=== PATIENT | female | born 1955 | race Caucasian/White ===

== ENCOUNTER → 2017-09-29 | Outpatient (CLI) | payer BC ==
--- NOTE | 2017-09-29 15:21 | CT ---
EXAMINATION TYPE: CT abdomen wo con DATE OF EXAM: 09/29/2017 HISTORY: Adrenal nodule, abnormal cta chest. CT DLP: 421.50 mGycm. Automated Exposure Control for Dose Reduction was Utilized. TECHNIQUE: CT scan of the abdomen is performed with oral but without IV contrast. COMPARISON: CTA chest September 04, 2016. FINDINGS: Within the limitations of a non-contrast study, the following observations are made. LUNG BASES: No significant abnormality is appreciated. LIVER/GB: Gallbladder is not visualized and presumed surgically absent though cholecystectomy clips a re not clearly seen, findings noted unchanged from prior. PANCREAS: There is some mild generalized fat replaced atrophy of pancreas. SPLEEN: No significant abnormality is seen. ADRENALS: Slight nodular thickening to left adrenal gland favoring benign hyperplasia is stable measu ring 1.0 cm. KIDNEYS: There is 1.8 cm rounded low dense lesion mid to lower pole level left kidney felt to reflect simple cyst, Hounsfield units measure 12-13. BOWEL: Oral contrast reaches level of distal ileum making evaluation of distal bowel suboptimal. Ther e is no suspicious small or large bowel dilatation. Normal-appearing appendix is seen inferiorly from cecum. Mild wall thickening in right colon is present. A colitis cannot be entirely excluded in appr opriate clinical setting. Cortical correlation advised. Finding most likely is product of poor disten tion. LYMPH NODES: No greater than 1cm abdominal lymph nodes are appreciated. OSSEOUS STRUCTURES: No significant abnormality is seen. OTHER: No significant additional abnormality is seen. IMPRESSION: Stable 1.0 cm left adrenal prominence favor benign hyperplasia.
== END | disposition home or self-care (01) ==
LOC: RADCTMAIN 14:08
PROVIDERS: ATTEND Family Medicine
DX: E27.9 Disorder of adrenal gland, unspecified (principal)
CPT/HCPCS: 74150

== ENCOUNTER 2017-11-27 12:41 | Emergency (ER) | payer BC ==
[2017-11-27 13:14] VITALS: BP 112/71; PULSE 73; RESP 18; TEMP 97.1
--- NOTE | 2017-11-27 13:26 | ED ---
General Adult HPI - General Chief complaint: Extremity Injury, Lower Stated complaint: Fall-Knee Pain Time Seen by Provider: 11/27/17 12:59 Source: patient, RN notes reviewed Mode of arrival: ambulatory Limitations: no limitations - History of Present Illness Initial comments: 62-year-old female presents to the emergency department with a chief complaint of right knee injury. Patient tripped and fell last Tuesday. She states she fell right onto the knee. She states she still has some pain and some walking to the right knee so she thought that she should be seen. There is no head injury is able to ambulate. She states that she is not currently having any other symptoms of this. Patient was concerned due to the new discomfort so she thought that she should be evaluated.Patient denies any recent fever, chills, shortness of breath, chest pain, back pain, abdominal pain, nausea vomiting, numbness or tingling, dysuria or hematuria, constipation or diarrhea, headaches or visual changes, or any other current symptoms. - Related Data Home Medications Medication Instructions Recorded Confirmed Melatonin 3 mg PO HS PRN 07/23/15 09/05/16 Insulin Aspart [NovoLOG] See Protocol SQ CONTINUOUS 08/18/15 09/05/16 Aspirin [Adult Low Dose Aspirin EC] 324 mg PO DAILY 10/23/15 09/05/16 Metoprolol Tartrate 25 mg PO BID 08/07/16 09/05/16 Cetirizine HCl [Zyrtec] 10 mg PO DAILY 09/04/16 09/05/16 Levothyroxine Sodium [Synthroid] 88 mcg PO DAILY 09/04/16 09/05/16 Propylene Glycol/Peg 400/Pf 1 drop BOTH EYES QID PRN 09/05/16 09/05/16 [Systane 0.3-0.4% Eye Drops] Allergies Allergy/AdvReac Type Severity Reaction Status Date / Time Penicillins Allergy Unknown Verified 11/27/17 13:46 Review of Systems ROS Statement: Those systems with pertinent positive or pertinent negative responses have been documented in the HPI. ROS Other: All systems not noted in ROS Statement are negative. Past Medical History Past Medical History: Atrial Fibrillation, Diabetes Mellitus, GERD/Reflux, Sleep Apnea/CPAP/BIPAP, Thyroid Disorder Additional Past Medical History / Comment(s): no cpap used, arthritis, thyroid nodule, Karis disease History of Any Multi-Drug Resistant Organisms: None Reported Past Surgical History: Bariatric Surgery, Cholecystectomy, Tonsillectomy Additional Past Surgical History / Comment(s): right ovary removed, Past Anesthesia/Blood Transfusion Reactions: No Reported Reaction, Family History of Problems w/ Anesthesia Additional Past Anesthesia/Blood Transfusion Reaction / Comment(s): DIFFICULTY WITH INTUBATION-NEEDS SMALL TUBE. Needs to use a child's one. mother has diff coming out Past Psychological History: No Psychological Hx Reported Smoking Status: Never smoker Past Alcohol Use History: None Reported Past Drug Use History: None Reported - Past Family History Mother Family Medical History: No Reported History Father Family Medical History: Myocardial Infarction ([place]) General Exam - General Exam Comments Initial Comments: General: The patient is awake and alert, in no distress, and does not appear acutely ill. Neck: The neck is supple, there is no tenderness. Cardiovascular: There is a regular rate and rhythm. No murmur, rub or gallop is appreciated. Respiratory: Lungs are clear to auscultation, respirations are non-labored, breath sounds are equal. No wheezes, stridor, rales, or rhonchi. Musculoskeletal: Sensation intact with 2+ pulses throughout the right lower extremity. Fund motion of right ankle right knee and right hip. Patient is appear to have some bruising to the anterior right knee. No deformity. Minimal swelling. Neurological: CN II-XII intact, There are no obvious motor or sensory deficits. Coordination appears grossly intact. Speech is normal. Skin: Skin is warm and dry and no rashes or lesions are noted. Psychiatric: Normal mood and affect. Limitations: no limitations Course Vital Signs 11/27/17 13:06 Temperature 97.1 F L Pulse Rate 73 Respiratory 18 Rate Blood Pressure 112/71 O2 Sat by Pulse 97 Oximetry Medical Decision Making - Medical Decision Making 62-year-old female presents for right knee pain after a fall. At this time and imaging has been reviewed and is negative. This time we discussed ice elevate we discussed follow-up with orthopedic we discussed return parameters all questions. Patient stated that she understood and she is given this plan. All questions have been answered. She will be discharged. - Radiology Data Radiology results: report reviewed, image reviewed Disposition Clinical Impression: Contusion of right knee, Fall, Right knee sprain Disposition: HOME SELF-CARE Condition: Stable Instructions: Knee Pain (ED) Additional Instructions: Please use medication as discussed. Please follow up with family doctor if symptoms have not improved over the next two days. Please return to the emergency room if your symptoms increase or worsen or for any other concerns. Referrals: Farida Rosenbaum DO [Primary Care Provider] - 1-2 days Hiro Rivera MD [STAFF PHYSICIAN] - 1-2 days Time of Disposition: 13:48
--- NOTE | 2017-11-27 13:33 | XR ---
EXAMINATION TYPE: XR knee 4V RT , 4 VIEWS DATE OF EXAM ORDERED: 11/27/2017 HISTORY: Pain following trauma. COMPARISON: None. FINDINGS: No fracture, dislocation or joint effusion is seen. IMPRESSION: NO ACUTE OSSEOUS LESION.
== END 2017-11-27 13:56 | disposition home or self-care (01) ==
LOC: EC 12:41
DX: S83.91XA Sprain of unspecified site of right knee, initial encounter (principal); E11.9 Type 2 diabetes mellitus without complications; E07.9 Disorder of thyroid, unspecified; M19.90 Unspecified osteoarthritis, unspecified site; Z88.0 Allergy status to penicillin; Z79.4 Long term (current) use of insulin; Z79.82 Long term (current) use of aspirin; Z79.899 Other long term (current) drug therapy; W01.0XXA Fall on same level from slipping, tripping and stumbling without subsequent striking against object, initial encounter
CPT/HCPCS: 99283

== ENCOUNTER 2018-09-09 21:20 | Emergency (ER) | payer BC ==
--- NOTE | 2018-09-09 21:33 | ED ---
Neuro HPI - General Stated Complaint: Poss CVA Time Seen by Provider: 09/09/18 21:22 - History of Present Illness Is the patient presenting with stroke symptoms?: Yes Last Known Well Date: 09/09/18 Last Known Well Time: 19:00 Onset/Timin -: hour(s) Initial Comments: Madison is a 63-year-old female with a history listed below who presents to the emergency department today for evaluation of leg weakness and speech difficulty. Patient reports she was in her usual state of health throughout the day today. She reports around 7:30 PM she noticed her leg was feeling a lot. She was trying to move it because she felt like it was cramping. This persisted for over an hour so she called 911 for transport to the hospital. Upon arrival of EMS they noted the patient was having some confusion, had weakness in her right leg and difficulty with speech. Patient was having difficulty naming items and had been difficulty with word finding. Some mild slurring of her speech and some weakness of the right lower extremity. In addition the patient had some confusion. When asked her name she provided her maiden name, she was confused as to her date of . Patient's daughter at bedside states that she was not home with the patient however her sister was. She reports that her mother been in her usual state of health. She does note that recently her mother's sugars have been difficult to control over the past 2 days, this is due to a pump failure and her insulin pump. She reports that yesterday morning her mother woke up with a blood sugar of nearly 500 which is very atypical for her. Placed her insulin pump in a new location in her abdomen and has had better control over the past 24 hours though EMS did report her blood glucose was 300 at their arrival. - Related Data Home Medications: Home Medications Medication Instructions Recorded Confirmed Insulin Aspart [NovoLOG] See Protocol SQ CONTINUOUS 08/18/15 11/27/17 Aspirin [Adult Low Dose Aspirin EC] 81 mg PO HS 10/23/15 11/27/17 Metoprolol Tartrate 25 mg PO BID 08/07/16 11/27/17 Cetirizine HCl [Zyrtec] 10 mg PO DAILY 09/04/16 11/27/17 Levothyroxine Sodium [Synthroid] 75 mcg PO DAILY 11/27/17 11/27/17 Allergies/Adverse Reactions: Allergies Allergy/AdvReac Type Severity Reaction Status Date / Time Penicillins Allergy Unknown Verified 09/09/18 21:29 Review of Systems ROS Statement: Those systems with pertinent positive or pertinent negative responses have been documented in the HPI. ROS Other: All systems not noted in ROS Statement are negative. General Exam - General Exam Comments Initial Comments: Physical Exam GENERAL: Patient is well-developed and well-nourished. Patient is nontoxic and well- hydrated and is in mild distress. HENT: Normocephalic, Atraumatic. EYES: PERRL, EOMI PULMONARY: Unlabored respirations. No audible rales rhonchi or wheezing was noted. CARDIOVASCULAR: There is a regular rate and rhythm without any murmurs gallops or rubs. ABDOMEN: Soft and nontender with normal bowel sounds. Insulin pump in place in LLQ - removed SKIN: Skin is clear with no lesions or rashes and otherwise unremarkable. : Deferred NEUROLOGIC: Patient is alert and oriented x2. Moving all extremities spontaneously Weakness of RLE Word finding difficulty, dysphagia MUSCULOSKELETAL: Normal extremities full passive range of motion. No lower extremity swelling or edema. No calf tenderness. PSYCHIATRIC: Normal psychiatric evaluation. Limitations: no limitations Stroke MDM - Lab Data Result diagrams: 09/09/18 21:20 09/09/18 21:20 Lab Results 09/09/18 09/09/18 09/09/18 Range/Units 21:20 21:20 21:20 WBC (3.8-10.6) k/uL RBC (3.80-5.40) m/uL Hgb (11.4-16.0) gm/dL Hct (34.0-46.0) % MCV (80.0-100.0) fL MCH (25.0-35.0) pg MCHC (31.0-37.0) g/dL RDW (11.5-15.5) % Plt Count (150-450) k/uL Neutrophils % % Lymphocytes % % Monocytes % % Eosinophils % % Basophils % % Neutrophils # (1.3-7.7) k/uL Lymphocytes # (1.0-4.8) k/uL Monocytes # (0-1.0) k/uL Eosinophils # (0-0.7) k/uL Basophils # (0-0.2) k/uL PT 10.4 (9.0-12.0) sec INR 1.1 (<1.2) APTT 21.0 L (22.0-30.0) sec Sodium 141 (137-145) mmol/L Potassium 4.3 (3.5-5.1) mmol/L Chloride 107 (98-107) mmol/L Carbon Dioxide 24 (22-30) mmol/L Anion Gap 10 mmol/L BUN 32 H (7-17) mg/dL Creatinine 0.99 (0.52-1.04) mg/dL Est GFR (CKD-EPI)AfAm 69 (>60 ml/min/1.73 sqM) Est GFR (CKD-EPI)NonAf 60 (>60 ml/min/1.73 sqM) Glucose 159 H (74-99) mg/dL POC Glucose (mg/dL) (75-99) mg/dL POC Glu Climatology Teacher ID Calcium 9.6 (8.4-10.2) mg/dL Total Bilirubin 0.3 (0.2-1.3) mg/dL AST 28 (14-36) U/L ALT 26 (9-52) U/L Alkaline Phosphatase 29 L (38-126) U/L Total Creatine Kinase 94 (30-135) U/L CK-MB (CK-2) 0.6 (0.0-2.4) ng/mL CK-MB (CK-2) Rel Index 0.6 Troponin I <0.012 (0.000-0.034) ng/mL Total Protein 7.8 (6.3-8.2) g/dL Albumin 4.3 (3.5-5.0) g/dL 09/09/18 09/09/18 Range/Units 21:20 21:24 WBC 4.9 (3.8-10.6) k/uL RBC 4.27 (3.80-5.40) m/uL Hgb 12.8 (11.4-16.0) gm/dL Hct 38.6 (34.0-46.0) % MCV 90.4 (80.0-100.0) fL MCH 29.9 (25.0-35.0) pg MCHC 33.1 (31.0-37.0) g/dL RDW 12.6 (11.5-15.5) % Plt Count 266 (150-450) k/uL Neutrophils % 61 % Lymphocytes % 29 % Monocytes % 6 % Eosinophils % 2 % Basophils % 0 % Neutrophils # 3.0 (1.3-7.7) k/uL Lymphocytes # 1.4 (1.0-4.8) k/uL Monocytes # 0.3 (0-1.0) k/uL Eosinophils # 0.1 (0-0.7) k/uL Basophils # 0.0 (0-0.2) k/uL PT (9.0-12.0) sec INR (<1.2) APTT (22.0-30.0) sec Sodium (137-145) mmol/L Potassium (3.5-5.1) mmol/L Chloride (98-107) mmol/L Carbon Dioxide (22-30) mmol/L Anion Gap mmol/L BUN (7-17) mg/dL Creatinine (0.52-1.04) mg/dL Est GFR (CKD-EPI)AfAm (>60 ml/min/1.73 sqM) Est GFR (CKD-EPI)NonAf (>60 ml/min/1.73 sqM) Glucose (74-99) mg/dL POC Glucose (mg/dL) 150 H (75-99) mg/dL POC Glu Climatology Teacher ID Batool [place]custer Calcium (8.4-10.2) mg/dL Total Bilirubin (0.2-1.3) mg/dL AST (14-36) U/L ALT (9-52) U/L Alkaline Phosphatase (38-126) U/L Total Creatine Kinase (30-135) U/L CK-MB (CK-2) (0.0-2.4) ng/mL CK-MB (CK-2) Rel Index Troponin I (0.000-0.034) ng/mL Total Protein (6.3-8.2) g/dL Albumin (3.5-5.0) g/dL - NIH Stroke Scale 1a. Level of Consciousness: (0) alert 1b. LOC Questions: (1) answers 1 question correctly 1c. LOC Commands: (0) performs tasks correctly 2. Best Gaze: (0) normal 3. Visual: (0) no visual loss 4. Facial Palsy: (0) normal symmetrical movement 5a. Motor Arm Left: (0) no drift 5b. Motor Arm Right: (0) no drift 6a. Motor Leg Left: (0) no drift 6b. Motor Leg Right: (1) drift 7. Limb Ataxia: (0) absent 8. Sensory: (0) normal 9. Best Language: (1) mild/moderate aphasia 10. Dysarthria: (1) mild/moderate dysarthria 11. Extinction/Inattention: (0) no abnormality - Thrombolytic Inclusion/Exclusion Thrombolytic Inclusion Criteria: Ischemic Stroke Onset< 3h, NIH Stroke Scale Deficit, Negative CT Scan for ICH, Age 18 or Older, Glucose of 50-400mg/dl - Core Measures Door to Thrombolytics, if given: 54 - Medical Decision Making Code stroke activated from the field for strokelike symptoms 2-1/2 hour onset The patient is awake, alert, oriented to person but somewhat confused, she is protecting her airway and able to cooperate with exam Patient taken from EMS today to CT for immediate computed tomography scan Initial NIH of 4 EKG sinus rhythm, no evidence of arrhythmia, ischemia or infarction. Patient was evaluated by the neurologist Dr Correia, neurology recommends TPA Dr Correia discussed risks/benefits of TPA, patient consents TPA ordered, Pharmacy notified and brought appropriate weight based medication to ER Patient care was discussed with Dr. Gonzalez at [facility] who accepts the transfer I again discussed risks/benefits of TPA with the patient who consented TPA bolus given 22:15 EMS arrived at 2227 No change in the patient's condition prior to transfer - EKG Data -: EKG Interpreted by Me EKG shows normal: sinus rhythm Rate: normal Past Medical History Past Medical History: Atrial Fibrillation, Diabetes Mellitus, GERD/Reflux, Sleep Apnea/CPAP/BIPAP, Thyroid Disorder Additional Past Medical History / Comment(s): no cpap used, arthritis, thyroid nodule, Karis disease History of Any Multi-Drug Resistant Organisms: None Reported Past Surgical History: Bariatric Surgery, Cholecystectomy, Tonsillectomy Additional Past Surgical History / Comment(s): right ovary removed, Past Anesthesia/Blood Transfusion Reactions: No Reported Reaction, Family History of Problems w/ Anesthesia Additional Past Anesthesia/Blood Transfusion Reaction / Comment(s): DIFFICULTY WITH INTUBATION-NEEDS SMALL TUBE. Needs to use a child's one. mother has diff coming out Past Psychological History: No Psychological Hx Reported Smoking Status: Never smoker Past Alcohol Use History: None Reported Past Drug Use History: None Reported - Past Family History Mother Family Medical History: No Reported History Father Family Medical History: Myocardial Infarction ([place]) Course Vital Signs 09/09/18 09/09/18 09/09/18 21:29 21:45 22:00 Temperature 98.8 F 97.8 F 97.6 F Pulse Rate 53 L 92 93 Pulse Rate [ Program Management Professional ] Respiratory 20 19 15 Rate Blood Pressure 140/98 141/98 140/91 Blood Pressure [Left Arm] O2 Sat by Pulse 100 98 98 Oximetry 09/09/18 09/09/18 09/09/18 22:15 22:30 22:34 Temperature 97.9 F 97.6 F 97.9 F Pulse Rate 90 96 Pulse Rate [ 93 Program Management Professional ] Respiratory 16 17 16 Rate Blood Pressure 135/92 133/116 Blood Pressure 137/89 [Left Arm] O2 Sat by Pulse 99 99 99 Oximetry 09/09/18 22:35 Temperature 97.8 F Pulse Rate Pulse Rate [ 98 Program Management Professional ] Respiratory 18 Rate Blood Pressure Blood Pressure 142/88 [Left Arm] O2 Sat by Pulse 98 Oximetry Critical Care Time Critical Care Time: Yes Total Critical Care Time: 30 Critical Care Time: Critical Care Critical care time was exclusive of separately billable procedures and treating other patients and teaching time. Critical care was necessary to treat or prevent imminent or life-threatening deterioration. Critical care was time spent personally by me on the following activities: development of treatment plan with patient or surrogate, discussions with consultants, discussions with primary provider, evaluation of patient's response to treatment, examination of patient, obtaining history from patient or surrogate, ordering and performing treatments and interventions, ordering and review of laboratory studies, ordering and review of radiographic studies, pulse oximetry, re-evaluation of patient's condition and review of old charts. Disposition Clinical Impression: Difficulty with speech, Nihss score 4, Right leg weakness, CVA (cerebral vascular accident), Received intravenous tissue plasminogen activator (t-PA) in emergency department Disposition: OTHER INSTITUTION NOT DEFINED Condition: Serious Referrals: None,Stated [Primary Care Provider] - 1-2 days - Out of Hospital Transfer - Req. Specs Out of Hospital Transfer - Requested Specifics: Other Emergency Center ( [facility]
--- NOTE | 2018-09-09 21:34 | CT ---
EXAMINATION TYPE: CT brain wo con for TPA DATE OF EXAM: 09/09/2018 COMPARISON: None HISTORY: 63 year-old female code stroke, weakness, Neuro deficits. TECHNIQUE: Examination was done in axial plane without intravenous contrast. Coronal and sagittal r econstructions performed. CT DLP: 901.7 mGycm Automated exposure control for dose reduction was used. FINDINGS: There is no evidence of acute intracranial hemorrhage, acute ischemic changes, mass, mass-effect, or extra-axial fluid collection. There is no effacement of cerebral sulci or basal subarachnoid cister ns. There is no hydrocephalus. There is no midline shift. [place]-white matter distinction is preserv ed. Very minimal patchy periventricular hypodensities suggest recent burden of chronic small vessel ische kyle disease. Trace mucosal thickening anterior ethmoid air cells. Mastoid air cells well pneumatized. Orbits and g lobes are intact. Previous cataract surgery on the left. IMPRESSION: No acute intracranial abnormality seen. If symptoms persist, follow-up CT or MRI.
[2018-09-09 21:41] LABS: Glucose,Whole Blood 150 mg/dL (75-99)
[2018-09-09 21:58] LABS: Basophils % (A) 0 %; Eosinophils # (A) 0.1 k/uL (0-0.7); Eosinophils % (A) 2 %; HCT 38.6 % (34.0-46.0); HGB 12.8 gm/dL (11.4-16.0); Lymphocytes # (A) 1.4 k/uL (1.0-4.8); Lymphocytes % (A) 29 %; MCH 29.9 pg (25.0-35.0); MCHC 33.1 g/dL (31.0-37.0); MCV 90.4 fL (80.0-100.0); Mean Platelet Volume 6.7; Monocytes # (A) 0.3 k/uL (0-1.0); Monocytes % (A) 6 %; Neutrophils % (A) 61 %; Platelet Count 266 k/uL (150-450); RBC 4.27 m/uL (3.80-5.40); RDW 12.6 % (11.5-15.5); WBC 4.9 k/uL (3.8-10.6)
[2018-09-09] MEDS ORDERED: tPA (Alteplase) PER PHARMACY 1 EACH MISC MISCELLANE PRN (22:00)
[2018-09-09] MEDS ORDERED: ALTEPLASE BOLUS 7 MG in EMPTY SYRINGE 1 SYR IV STA (22:04)
[2018-09-09 22:05] LABS: Albumin 4.3 g/dL (3.5-5.0); Calcium 9.6 mg/dL (8.4-10.2); Creatine Kinase 94 U/L (30-135); Potassium 4.3 mmol/L (3.5-5.1); Total Bilirubin 0.3 mg/dL (0.2-1.3); Total Protein 7.8 g/dL (6.3-8.2)
[2018-09-09] MEDS ORDERED: ALTEPLASE IV STA (22:06)
[2018-09-09 22:15] LABS: INR 1.1 (<1.2); Prothrombin Time 10.4 sec (9.0-12.0)
[2018-09-09 22:16] LABS: Creatine Kinase MB 0.6 ng/mL (0.0-2.4); Troponin I <0.012 ng/mL (0.000-0.034)
[2018-09-09 23:08] VITALS: BP 142/88; PULSE 98; RESP 18; TEMP 97.8
[2018-09-11 13:08] LABS: Hemoglobin A1C 8.9 % (4.0-6.0)
== END 2018-09-09 22:34 | disposition other institution (70) ==
LOC: EC 21:20
DX: I63.9 Cerebral infarction, unspecified (principal); R29.704 NIHSS score 4; I48.91 Unspecified atrial fibrillation; E11.9 Type 2 diabetes mellitus without complications; G47.30 Sleep apnea, unspecified; Z79.82 Long term (current) use of aspirin; Z79.4 Long term (current) use of insulin; Z79.899 Other long term (current) drug therapy; Z88.0 Allergy status to penicillin
CPT/HCPCS: 36415; 93005; 80053; 82550; 82553; 84484; 85025; 85610; 85730; 83036; 70450; 99291; 37195; J2997

== ENCOUNTER 2018-09-22 11:54 | Inpatient (IN) | payer BC, MEDICARE ==
[2018-09-22] MEDS ORDERED: SODIUM CHLORIDE 0.9% 1,000 ML IV STA ×2 (11:58)
--- NOTE | 2018-09-22 12:04 | ED ---
Altered Mental Status HPI - General Stated Complaint: Hyperglycemia Time Seen by Provider: 09/22/18 11:54 Source: patient, EMS, RN notes reviewed Mode of arrival: EMS - History of Present Illness Initial Comments: This is a 63-year-old female history of CVA history of diabetes who is insulin pump who was brought in by EMS for evaluation of confusion and weakness sleeping a lot. Apparently her palms not been functioning over last at least day or so she's had these other symptoms going on for 3-4 days getting progressively worse. He comes oral intake. Per paramedics the blood sugar was 563 upon evaluation. She was given about 400 mL of IV fluid and route to. No reports of trauma no reports of fevers chills nausea vomiting or other symptoms. MD Complaint: altered mental status, confusion, weakness, other - Related Data Home Medications Medication Instructions Recorded Confirmed Insulin Aspart [NovoLOG] See Protocol SQ CONTINUOUS 08/18/15 09/22/18 Metoprolol Tartrate 25 mg PO BID 08/07/16 09/22/18 Levothyroxine Sodium [Synthroid] 75 mcg PO DAILY 11/27/17 09/22/18 Atorvastatin [Lipitor] 40 mg PO HS 09/22/18 09/22/18 Clopidogrel [Plavix] 75 mg PO DAILY 09/22/18 09/22/18 Allergies Allergy/AdvReac Type Severity Reaction Status Date / Time Penicillins Allergy Unknown Verified 09/22/18 14:00 Review of Systems ROS Statement: Those systems with pertinent positive or pertinent negative responses have been documented in the HPI. ROS Other: All systems not noted in ROS Statement are negative. Past Medical History Past Medical History: Atrial Fibrillation, Diabetes Mellitus, GERD/Reflux, Sleep Apnea/CPAP/BIPAP, Thyroid Disorder Additional Past Medical History / Comment(s): no cpap used, arthritis, thyroid nodule, Karis disease History of Any Multi-Drug Resistant Organisms: None Reported Past Surgical History: Bariatric Surgery, Cholecystectomy, Tonsillectomy Additional Past Surgical History / Comment(s): right ovary removed, Past Anesthesia/Blood Transfusion Reactions: No Reported Reaction, Family History of Problems w/ Anesthesia Additional Past Anesthesia/Blood Transfusion Reaction / Comment(s): DIFFICULTY WITH INTUBATION-NEEDS SMALL TUBE. Needs to use a child's one. mother has diff coming out Past Psychological History: No Psychological Hx Reported Smoking Status: Never smoker Past Alcohol Use History: None Reported Past Drug Use History: None Reported - Past Family History Mother Family Medical History: No Reported History Father Family Medical History: Myocardial Infarction ([place]) General Exam - General Exam Comments Initial Comments: This is a well-developed well-nourished awake alert but lethargic female General appearance: alert, in no apparent distress Head exam: Present: atraumatic, normocephalic, normal inspection Eye exam: Present: normal appearance, PERRL, EOMI. Absent: scleral icterus, conjunctival injection, periorbital swelling ENT exam: Present: mucous membranes dry Neck exam: Present: normal inspection. Absent: tenderness, meningismus, lymphadenopathy Respiratory exam: Present: normal lung sounds bilaterally. Absent: respiratory distress, wheezes, rales, rhonchi, stridor Cardiovascular Exam: Present: regular rate, normal rhythm, normal heart sounds. Absent: systolic murmur, diastolic murmur, rubs, gallop, clicks GI/Abdominal exam: Present: soft, normal bowel sounds. Absent: distended, tenderness, guarding, rebound, rigid Extremities exam: Present: normal inspection, full ROM, normal capillary refill. Absent: tenderness, pedal edema, joint swelling, calf tenderness Back exam: Present: normal inspection Neurological exam: Present: alert, altered, CN II-XII intact, other (Does demonstrate confusion) Psychiatric exam: Present: normal affect, normal mood Skin exam: Present: warm, dry, intact, normal color. Absent: rash Course Vital Signs 09/22/18 11:59 Temperature 97.4 F L Pulse Rate 112 H Respiratory 20 Rate Blood Pressure 120/74 O2 Sat by Pulse 100 Oximetry - Reevaluation(s) Reevaluation #1: 09/22/18 16:27 I did reevaluate the patient she'll occasion discuss findings the patient and her daughter. The patient will be admitted for inpatient treatment. Reevaluation #2: 09/22/18 16:28 did come the emergency department see the patient. Reevaluation #3: 09/22/18 16:28 I did discuss case with Dr. Ferrari patient will be admitted to intensive care unit. Reevaluation #4: 09/22/18 16:34 The lactic acidosis is likely secondary to dehydration not an infectious process Medical Decision Making - Medical Decision Making I did discuss the case with the above physicians. Patient is getting some mild improvement after IV hydration. She does demonstrate evidence of DKA and hyperosmolar pathology. Patient will be admitted intensive care unit for treatment. - Lab Data Result diagrams: 09/22/18 12:22 09/22/18 12:22 Lab Results 09/22/18 09/22/18 09/22/18 Range/Units 12:19 12:22 12:22 WBC 15.3 H (3.8-10.6) k/uL RBC 4.46 (3.80-5.40) m/uL Hgb 13.1 (11.4-16.0) gm/dL Hct 44.8 (34.0-46.0) % MCV 100.4 H D (80.0-100.0) fL MCH 29.3 (25.0-35.0) pg MCHC 29.2 L (31.0-37.0) g/dL RDW 12.4 (11.5-15.5) % Plt Count 349 (150-450) k/uL Neutrophils % 88 % Lymphocytes % 5 % Monocytes % 6 % Eosinophils % 0 % Basophils % 0 % Neutrophils # 13.5 H (1.3-7.7) k/uL Lymphocytes # 0.8 L (1.0-4.8) k/uL Monocytes # 0.9 (0-1.0) k/uL Eosinophils # 0.1 (0-0.7) k/uL Basophils # 0.0 (0-0.2) k/uL Hypochromasia Marked PT (9.0-12.0) sec INR (<1.2) APTT (22.0-30.0) sec Sodium (137-145) mmol/L Potassium (3.5-5.1) mmol/L Chloride (98-107) mmol/L Carbon Dioxide (22-30) mmol/L Anion Gap mmol/L BUN (7-17) mg/dL Creatinine (0.52-1.04) mg/dL Est GFR (CKD-EPI)AfAm (>60 ml/min/1.73 sqM) Est GFR (CKD-EPI)NonAf (>60 ml/min/1.73 sqM) Glucose (74-99) mg/dL POC Glucose (mg/dL) >600 H (75-99) mg/dL POC Glu Fabrication Welder ID [place], February Osmolality (280-301) mosm/kg Lactic Ac Sepsis Rflx Plasma Lactic Acid Apolinar (0.7-2.0) mmol/L Calcium (8.4-10.2) mg/dL Magnesium (1.6-2.3) mg/dL Total Bilirubin (0.2-1.3) mg/dL AST (14-36) U/L ALT (9-52) U/L Alkaline Phosphatase (38-126) U/L Total Creatine Kinase 34 (30-135) U/L CK-MB (CK-2) 0.8 (0.0-2.4) ng/mL CK-MB (CK-2) Rel Index 2.4 Troponin I <0.012 (0.000-0.034) ng/mL Total Protein (6.3-8.2) g/dL Albumin (3.5-5.0) g/dL TSH (0.465-4.680) mIU/L Acetone, Qual (Negative) 09/22/18 09/22/18 09/22/18 Range/Units 12:22 12:22 12:22 WBC (3.8-10.6) k/uL RBC (3.80-5.40) m/uL Hgb (11.4-16.0) gm/dL Hct (34.0-46.0) % MCV (80.0-100.0) fL MCH (25.0-35.0) pg MCHC (31.0-37.0) g/dL RDW (11.5-15.5) % Plt Count (150-450) k/uL Neutrophils % % Lymphocytes % % Monocytes % % Eosinophils % % Basophils % % Neutrophils # (1.3-7.7) k/uL Lymphocytes # (1.0-4.8) k/uL Monocytes # (0-1.0) k/uL Eosinophils # (0-0.7) k/uL Basophils # (0-0.2) k/uL Hypochromasia PT 10.3 (9.0-12.0) sec INR 1.1 (<1.2) APTT 22.4 (22.0-30.0) sec Sodium 136 L (137-145) mmol/L Potassium 6.7 H* (3.5-5.1) mmol/L Chloride 97 L (98-107) mmol/L Carbon Dioxide <5 L* (22-30) mmol/L Anion Gap mmol/L BUN 34 H (7-17) mg/dL Creatinine 1.94 H (0.52-1.04) mg/dL Est GFR (CKD-EPI)AfAm 31 (>60 ml/min/1.73 sqM) Est GFR (CKD-EPI)NonAf 27 (>60 ml/min/1.73 sqM) Glucose 813 H* (74-99) mg/dL POC Glucose (mg/dL) (75-99) mg/dL POC Glu Fabrication Welder ID Osmolality (280-301) mosm/kg Lactic Ac Sepsis Rflx Plasma Lactic Acid Apolinar 6.8 H* (0.7-2.0) mmol/L Calcium 10.0 (8.4-10.2) mg/dL Magnesium 2.3 (1.6-2.3) mg/dL Total Bilirubin 0.5 (0.2-1.3) mg/dL AST 22 (14-36) U/L ALT 22 (9-52) U/L Alkaline Phosphatase 46 (38-126) U/L Total Creatine Kinase (30-135) U/L CK-MB (CK-2) (0.0-2.4) ng/mL CK-MB (CK-2) Rel Index Troponin I (0.000-0.034) ng/mL Total Protein 8.0 (6.3-8.2) g/dL Albumin 4.8 (3.5-5.0) g/dL TSH (0.465-4.680) mIU/L Acetone, Qual Positive (Negative) 09/22/18 09/22/18 09/22/18 Range/Units 12:22 13:05 14:18 WBC (3.8-10.6) k/uL RBC (3.80-5.40) m/uL Hgb (11.4-16.0) gm/dL Hct (34.0-46.0) % MCV (80.0-100.0) fL MCH (25.0-35.0) pg MCHC (31.0-37.0) g/dL RDW (11.5-15.5) % Plt Count (150-450) k/uL Neutrophils % % Lymphocytes % % Monocytes % % Eosinophils % % Basophils % % Neutrophils # (1.3-7.7) k/uL Lymphocytes # (1.0-4.8) k/uL Monocytes # (0-1.0) k/uL Eosinophils # (0-0.7) k/uL Basophils # (0-0.2) k/uL Hypochromasia PT (9.0-12.0) sec INR (<1.2) APTT (22.0-30.0) sec Sodium (137-145) mmol/L Potassium (3.5-5.1) mmol/L Chloride (98-107) mmol/L Carbon Dioxide (22-30) mmol/L Anion Gap mmol/L BUN (7-17) mg/dL Creatinine (0.52-1.04) mg/dL Est GFR (CKD-EPI)AfAm (>60 ml/min/1.73 sqM) Est GFR (CKD-EPI)NonAf (>60 ml/min/1.73 sqM) Glucose (74-99) mg/dL POC Glucose (mg/dL) >600 H (75-99) mg/dL POC Glu Fabrication Welder ID February Osmolality 347 H* (280-301) mosm/kg Lactic Ac Sepsis Rflx Y Plasma Lactic Acid Apolinar (0.7-2.0) mmol/L Calcium (8.4-10.2) mg/dL Magnesium (1.6-2.3) mg/dL Total Bilirubin (0.2-1.3) mg/dL AST (14-36) U/L ALT (9-52) U/L Alkaline Phosphatase (38-126) U/L Total Creatine Kinase (30-135) U/L CK-MB (CK-2) (0.0-2.4) ng/mL CK-MB (CK-2) Rel Index Troponin I (0.000-0.034) ng/mL Total Protein (6.3-8.2) g/dL Albumin (3.5-5.0) g/dL TSH (0.465-4.680) mIU/L Acetone, Qual (Negative) 09/22/18 09/22/18 09/22/18 Range/Units 14:36 15:25 16:28 WBC (3.8-10.6) k/uL RBC (3.80-5.40) m/uL Hgb (11.4-16.0) gm/dL Hct (34.0-46.0) % MCV (80.0-100.0) fL MCH (25.0-35.0) pg MCHC (31.0-37.0) g/dL RDW (11.5-15.5) % Plt Count (150-450) k/uL Neutrophils % % Lymphocytes % % Monocytes % % Eosinophils % % Basophils % % Neutrophils # (1.3-7.7) k/uL Lymphocytes # (1.0-4.8) k/uL Monocytes # (0-1.0) k/uL Eosinophils # (0-0.7) k/uL Basophils # (0-0.2) k/uL Hypochromasia PT (9.0-12.0) sec INR (<1.2) APTT (22.0-30.0) sec Sodium (137-145) mmol/L Potassium (3.5-5.1) mmol/L Chloride (98-107) mmol/L Carbon Dioxide (22-30) mmol/L Anion Gap mmol/L BUN (7-17) mg/dL Creatinine (0.52-1.04) mg/dL Est GFR (CKD-EPI)AfAm (>60 ml/min/1.73 sqM) Est GFR (CKD-EPI)NonAf (>60 ml/min/1.73 sqM) Glucose (74-99) mg/dL POC Glucose (mg/dL) >600 H 533 H (75-99) mg/dL POC Glu Fabrication Welder ID Sylvain AnthonyGinger Baugh Osmolality (280-301) mosm/kg Lactic Ac Sepsis Rflx Plasma Lactic Acid Apolinar (0.7-2.0) mmol/L Calcium (8.4-10.2) mg/dL Magnesium (1.6-2.3) mg/dL Total Bilirubin (0.2-1.3) mg/dL AST (14-36) U/L ALT (9-52) U/L Alkaline Phosphatase (38-126) U/L Total Creatine Kinase (30-135) U/L CK-MB (CK-2) (0.0-2.4) ng/mL CK-MB (CK-2) Rel Index Troponin I (0.000-0.034) ng/mL Total Protein (6.3-8.2) g/dL Albumin (3.5-5.0) g/dL TSH 1.010 (0.465-4.680) mIU/L Acetone, Qual (Negative) - EKG Data -: EKG Interpreted by Me EKG shows normal: sinus rhythm (Sinus tachycardia rate of 113 LA interval 164 QRS 88 QT since QTC 346/474) - Radiology Data Radiology results: report reviewed (I did review the imaging and report the CT shows evidence of acute versus subacute stroke patient did have one 2 weeks ago. ), image reviewed Critical Care Time Critical Care Time: Yes Critical Care Time: 47 minutes of critical care time which includes monitoring EMS run and discussed with paramedics history physical labs x-rays multiple re-evaluations patient response to therapy discuss with the patient's family discussed with the admitting physicians and wall and floor tiler admission orders and documentation of the above Disposition Clinical Impression: Diabetic ketoacidosis, Hyperosmolarity due to secondary diabetes mellitus, Dehydration, History of CVA (cerebrovascular accident) Disposition: ADMITTED IP TO THIS [facility] Condition: Serious Referrals: Farida Rosenbaum DO [Primary Care Provider] - 1-2 days
[2018-09-22 12:22] LABS: Glucose,Whole Blood >600 mg/dL (75-99)
[2018-09-22] MEDS ORDERED: INSULIN REGULAR 100 UNIT/ML VIAL IV ONE (12:42)
[2018-09-22] MEDS ORDERED: INSULIN REGULAR 100 UNIT in SODIUM CHLORIDE 0.9% 100 ML IV ONE (12:43)
[2018-09-22 13:00] LABS: Basophils % (A) 0 %; Eosinophils # (A) 0.1 k/uL (0-0.7); Eosinophils % (A) 0 %; HCT 44.8 % (34.0-46.0); HGB 13.1 gm/dL (11.4-16.0); Hypochromasia Marked; INR 1.1 (<1.2); Lymphocytes # (A) 0.8 k/uL (1.0-4.8); Lymphocytes % (A) 5 %; MCH 29.3 pg (25.0-35.0); MCHC 29.2 g/dL (31.0-37.0); Mean Platelet Volume 7.5; Monocytes # (A) 0.9 k/uL (0-1.0); Monocytes % (A) 6 %; Neutrophils # (A) 13.5 k/uL (1.3-7.7); Neutrophils % (A) 88 %; Partial Thromboplastin Time 22.4 sec (22.0-30.0); Platelet Count 349 k/uL (150-450); Prothrombin Time 10.3 sec (9.0-12.0); RBC 4.46 m/uL (3.80-5.40); RDW 12.4 % (11.5-15.5); WBC 15.3 k/uL (3.8-10.6)
[2018-09-22 13:01] LABS: MCV 100.4 fL (80.0-100.0)
--- NOTE | 2018-09-22 13:07 | XR ---
EXAMINATION TYPE: XR chest 2V DATE OF EXAM: 09/22/2018 COMPARISON: None INDICATION: Weakness hyperglycemia TECHNIQUE: Frontal and lateral views of the chest are obtained. FINDINGS: The heart size is normal. The pulmonary vasculature is normal. The lungs are clear. IMPRESSION: 1. No acute pulmonary process.
[2018-09-22 13:08] LABS: ALT 22 U/L (9-52); AST 22 U/L (14-36); Albumin 4.8 g/dL (3.5-5.0); Alkaline Phosphatase 46 U/L (38-126); Blood Urea Nitrogen 34 mg/dL (7-17); Chloride 97 mmol/L (98-107); Magnesium 2.3 mg/dL (1.6-2.3); Sodium 136 mmol/L (137-145); Total Bilirubin 0.5 mg/dL (0.2-1.3)
[2018-09-22 13:19] LABS: Carbon Dioxide <5 mmol/L (22-30)
[2018-09-22 13:21] LABS: Glucose 813 mg/dL (74-99)
[2018-09-22 13:22] LABS: Creatine Kinase 34 U/L (30-135); Potassium 6.7 mmol/L (3.5-5.1)
[2018-09-22] MEDS ORDERED: SODIUM CHLORIDE 0.9% 500 ML 500 ML IV STA (13:28)
--- NOTE | 2018-09-22 13:31 | CT ---
EXAMINATION TYPE: CT brain wo con DATE OF EXAM: 09/22/2018 COMPARISON: 09/09/2018 HISTORY: Weakness CT DLP: 1237.4 mGycm Automated exposure control for dose reduction was used. FINDINGS: Motion artifact slightly limits examination. However there is a patchy area of hypoattenuation seen i nvolving the left thalamus and posterior limb of the internal capsule on image 22 and 23. This was no t seen on the prior exam of 09/09/2018 therefore representing an acute to subacute lacunar injury. No intracranial hemorrhage or midline shift is seen. No hydrocephalus. Focus of fat and similar to the prior within the midline. No suspicious extra-axial fluid collection. Paranasal sinuses are well aera josh and calvarium is grossly intact. IMPRESSION: ACUTE TO SUBACUTE LEFT THALAMIC LACUNAR INJURY EXTENDING INTO THE POSTERIOR LIMB OF THE INTERNAL CAPS ULE. NO INTRACRANIAL HEMORRHAGE OR MIDLINE SHIFT.
[2018-09-22 13:33] LABS: Creatine Kinase MB 0.8 ng/mL (0.0-2.4); Troponin I <0.012 ng/mL (0.000-0.034)
[2018-09-22 14:23] LABS: Glucose,Whole Blood >600 mg/dL (75-99)
[2018-09-22] MEDS ORDERED: SODIUM POLYSTYRENE SULFONATE 15 GM/60 ML BOTTLE PO STA (14:36)
--- NOTE | 2018-09-22 15:06 | P.HPIM ---
History of Present Illness H&P Date: 09/22/18 Chief Complaint: Elevated blood sugars This is a 63-year-old female with a known past medical history of type 1 diabetes mellitus on insulin pump, recent CVA about 2 weeks ago affecting the left side, Karis's disease, atrial fibrillation not on anticoagulation only an aspirin per patient and family. Patient was brought into the emergency room due to increasing confusion and lethargy with elevated blood sugar. Daughter called EMS and EMS reported a blood sugar of 563. Patient was given IV fluids and Route. According to the patient's daughter patient had a stroke about 2 weeks ago. She was admitted to [facility] at that time. She was there for about a week. Her daughter patient had about a 90% recovery. At home patient was taking care of her own insulin pump. On over the last 2 days the daughter noted that her mom was having difficulty managing her insulin pump and medications. The insulin pump battery went low and also it was time to replace insulin. Patient's daughter was unaware of how to use the pump. She tried to check her mother's blood sugar had difficulty with this. She felt that the sugars maybe be low and started to give her PE her mom orange juice. She reports that her mom was very confused and lethargic. Cannot even sit up in a chair. She had loss of bladder control. In the ER she was found to have a glucose of 813 acetone was positive. She has been started on insulin drip. Discussed with ER physician insulin pump will be removed. White count 15.3 sodium 136 potassium 6.7 chloride 97 CO2 less than 5 and anion gap unable calculated BUN 34 creatinine 1.9 for lactic acid 6.8. Patient is receiving IV fluid boluses. She is currently on normal saline at 100 mL an hour. And also on insulin drip. Patient will be admitted to the ICU. Dr. Santiago will be consulted for ICU management. Computed tomography scan of the brain shows an acute subacute traumatic lacunar injury extending into the posterior limb. Neurology will be consulted. Patient is lethargic. She is arousable. She is alert and orientated to name and place. She did not know the year. She did not know her daughter's name. She denies any chest pain or shortness of breath. Denies any nausea or vomiting. Denies any fevers chills or sweats. Denies any bowel movement changes or urinary symptoms. 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 Patient also has had decrease in appetite has not been eating and drinking well at home. Review of Systems Please refer to HPI otherwise unremarkable Past Medical History Past Medical History: Atrial Fibrillation, Diabetes Mellitus, GERD/Reflux, Sleep Apnea/CPAP/BIPAP, Thyroid Disorder Additional Past Medical History / Comment(s): no cpap used, arthritis, thyroid nodule, Karis disease History of Any Multi-Drug Resistant Organisms: None Reported Past Surgical History: Bariatric Surgery, Cholecystectomy, Tonsillectomy Additional Past Surgical History / Comment(s): right ovary removed, Past Anesthesia/Blood Transfusion Reactions: No Reported Reaction, Family History of Problems w/ Anesthesia Additional Past Anesthesia/Blood Transfusion Reaction / Comment(s): DIFFICULTY WITH INTUBATION-NEEDS SMALL TUBE. Needs to use a child's one. mother has diff coming out Past Psychological History: No Psychological Hx Reported Smoking Status: Never smoker Past Alcohol Use History: None Reported Past Drug Use History: None Reported - Past Family History Mother Family Medical History: No Reported History Father Family Medical History: Myocardial Infarction ([place]) Medications and Allergies Home Medications Medication Instructions Recorded Confirmed Type Insulin Aspart [NovoLOG] See Protocol SQ CONTINUOUS 08/18/15 09/22/18 History Metoprolol Tartrate 25 mg PO BID 08/07/16 09/22/18 History Levothyroxine Sodium [Synthroid] 75 mcg PO DAILY 11/27/17 09/22/18 History Atorvastatin [Lipitor] 40 mg PO HS 09/22/18 09/22/18 History Clopidogrel [Plavix] 75 mg PO DAILY 09/22/18 09/22/18 History Allergies Allergy/AdvReac Type Severity Reaction Status Date / Time Penicillins Allergy Unknown Verified 09/22/18 14:00 Physical Exam Vitals: Vital Signs Temp Pulse Resp BP Pulse Ox 09/22/18 11:59 97.4 F L 112 H 20 120/74 100 Intake and Output 09/21/18 09/22/18 09/22/18 22:59 06:59 14:59 Intake Total 1.97 Balance 1.97 Intake: Intake, IV Titration 1.97 Amount Insulin Regular 100 unit 1.97 In Sodium Chloride 0.9% 100 ml @ 3 UNIT/HR 3.03 mls/hr IV .Q24H ONE Rx#: [id number] Other: Weight 68.039 kg Head normocephalic Neck supple Lungs clear to auscultation bilaterally no wheezing or crackles. kussmaul respirations Heart regular rate and rhythm S1-S2, no rub or gallop Abdomen is soft nontender nondistended positive bowel sounds no hepatosplenomegaly Extremities no edema Neuro alert and orientated to 2. She knew her name and location. No slurred speech or facial droop. Patient is lethargic. Hand assembly machine tender equal bilaterally lower extremity strength equal bilaterally Results CBC & Chem 7: 09/22/18 12:22 09/22/18 12:22 Labs: Abnormal Lab Results - Last 24 Hours (Table) 09/22/18 09/22/18 09/22/18 Range/Units 12:19 12:22 12:22 WBC 15.3 H (3.8-10.6) k/uL MCV 100.4 H D (80.0-100.0) fL MCHC 29.2 L (31.0-37.0) g/dL Neutrophils # 13.5 H (1.3-7.7) k/uL Lymphocytes # 0.8 L (1.0-4.8) k/uL Sodium 136 L (137-145) mmol/L Potassium 6.7 H* (3.5-5.1) mmol/L Chloride 97 L (98-107) mmol/L Carbon Dioxide <5 L* (22-30) mmol/L BUN 34 H (7-17) mg/dL Creatinine 1.94 H (0.52-1.04) mg/dL Glucose 813 H* (74-99) mg/dL POC Glucose (mg/dL) >600 H (75-99) mg/dL Plasma Lactic Acid Apolinar (0.7-2.0) mmol/L 09/22/18 09/22/18 Range/Units 12:22 14:18 WBC (3.8-10.6) k/uL MCV (80.0-100.0) fL MCHC (31.0-37.0) g/dL Neutrophils # (1.3-7.7) k/uL Lymphocytes # (1.0-4.8) k/uL Sodium (137-145) mmol/L Potassium (3.5-5.1) mmol/L Chloride (98-107) mmol/L Carbon Dioxide (22-30) mmol/L BUN (7-17) mg/dL Creatinine (0.52-1.04) mg/dL Glucose (74-99) mg/dL POC Glucose (mg/dL) >600 H (75-99) mg/dL Plasma Lactic Acid Apolinar 6.8 H* (0.7-2.0) mmol/L Assessment and Plan Assessment: 1. Uncontrolled blood sugars with diabetic ketoacidosis secondary to insulin pump being used incorrectly and possibly a low battery. Blood sugar 813 acetone positive CO2 less than 5. Patient placed on insulin drip in the ER. She'll be admitted to the ICU. Dr. Ferrari will be consulted for ICU management. Continue with IV fluids. Discontinue insulin pump. Check urinalysis 2. Acute kidney injury: Likely related to poor oral intake. Patient be given IV fluids. Repeat labs in a.m. 3. Hyperkalemia: potassium 6.7 likely related to acute kidney injury and hyperglycemia. Patient has been given insulin as well as will give a dose of Kayexalate 30 g by mouth 1 4. Elevated lactic acid level of 6.8. Patient being given IV fluids. Repeat lactic acid level 5. Leukocytosis: Possibly related to hyperglycemia. Repeat CBC in a.m. chest x -ray negative. Await urinalysis. 6. Recent stroke 2 weeks ago treated at [facility]. Computed tomography scan of the brain showing acute to subacute left thalamic lacunar injury extending into the posterior limb of the internal capsule. No intracranial hemorrhage or midline shift. Consult neurology. Resume patient's Plavix 7. History of Karis's disease 8. History of paroxysmal atrial fibrillation. Patient had been on aspirin 81 mg by mouth daily prior to her stroke. Patient and daughter report that she had not been on any anticoagulation. Check EKG and continue with telemetry monitoring 7. Acute metabolic encephalopathy with Altered mental status and lethargy secondary to elevated blood sugars present on admission 8. Hyperlipidemia continue statin GI prophylaxis protonix and DVT prophylaxis subcu heparin Time with Patient: Greater than 30 (Greater than 60% of the total time spent in counseling and coordination of care.I performed an examination of the patient and discussed their management with the physician Editorial Director. I have reviewed the Physician Editorial Director's notes and agree with the documented findings and plan of care)
[2018-09-22 15:37] LABS: Glucose,Whole Blood >600 mg/dL (75-99)
[2018-09-22 16:30] LABS: Glucose,Whole Blood 533 mg/dL (75-99)
[2018-09-22 16:57] LABS: VBG PH 7.11 (7.31-7.41)
[2018-09-22 17:50] LABS: Glucose,Whole Blood 464 mg/dL (75-99)
[2018-09-22] MEDS: INSULIN REGULAR 100 UNIT in SODIUM CHLORIDE 0.9% 100 ML IV SCH (18:10)
[2018-09-22 19:04] LABS: Glucose,Whole Blood 358 mg/dL (75-99)
[2018-09-22 20:07] LABS: Glucose,Whole Blood 320 mg/dL (75-99)
[2018-09-22 20:40] LABS: Potassium 4.5 mmol/L (3.5-5.1)
[2018-09-22] MEDS ORDERED: Phosphorus Replacement Protoco 1 EACH MISC MISCELLANE PRN (20:56)
[2018-09-22 21:00] LABS: Glucose,Whole Blood 316 mg/dL (75-99)
[2018-09-22] MEDS ORDERED: SODIUM PHOSPHATE 10 MMOL in SODIUM CHLORIDE 0.9% 250 ML IVPB SCH (21:00)
[2018-09-22] MEDS: ATORVASTATIN 40 MG TAB PO SCH (21:01)
[2018-09-22] MEDS: HEPARIN SODIUM,PORCINE 5,000 UNIT/ML 1 ML VIAL SQ SCH (21:01)
[2018-09-22] MEDS: METOPROLOL TARTRATE 25 MG TAB PO SCH (21:01)
[2018-09-22] MEDS ORDERED: ONDANSETRON 4 MG/2 ML VIAL IVP PRN (21:29)
[2018-09-22] MEDS ORDERED: SODIUM GLYCEROPHOSPHATE 20 MMOL in SODIUM CHLORIDE 0.9% 250 ML IV ONE (22:00)
[2018-09-22 22:09] LABS: Glucose,Whole Blood 238 mg/dL (75-99)
[2018-09-22] MEDS: D5-0.45% NACL WITH KCL 20MEQ/L 1,000 ML IV SCH (22:30)
[2018-09-22 23:07] LABS: Glucose,Whole Blood 267 mg/dL (75-99)
--- NOTE | 2018-09-22 23:37 | P.CNNES ---
History of Present Illness Consult date: 09/22/18 Reason for Consult: Patient admitted with subacute stroke and diabetic ketoacidosis. History of Present Illness: This consultation was notified to Dr. Joann Oropeza at 10:45 PM on 09/22/2018 by the ICU nurse. This patient is a 63-year-old right-handed white female who was brought into the emergency room at [facility] ER for evaluation of confusion and lethargy. Apparently family members noted she was sleeping excessively at home and seemed to be much more confused than usual. She has a history of diabetes mellitus type 1 and uses an insulin pump. Due to her increased lethargy at home her daughter called EMS immediately and when they had arrived they found that her blood sugar was 563. She was given IV fluids and was transported by EMS to the emergency room at [facility]. She was seen in the ER by Dr. Arroyo. A repeat blood sugar was done in the ER and was 813. Patient was started on an IV insulin protocol. She was sent for a computed tomography scan of the brain due to the lethargy and confusion. CAT scan of the brain revealed evidence of an acute to subacute left thalamic lacunar infarct extending into the posterior limb of the internal capsule. No evidence of intracranial hemorrhage or midline shift. On further questioning apparently the patient was admitted to [facility] about 2 weeks ago for an acute stroke. We have requested the records from [facility] to be reviewed tomorrow. It is unclear whether she had any neuroimaging done at [facility] for evaluation of stroke. Family members were not at bedside to provide any further history. Patient is very confused and unable to provide any history at this time. We will request the records and these will be reviewed tomorrow. The patient's blood sugar has been slowly coming down with the use of the insulin drip. She does have history of paroxysmal atrial fibrillation and apparently after her recent stroke she was discharged on Plavix and aspirin. She has not been on any anticoagulation. Review of her EKG at this time in the ICU reveals her to be in normal sinus rhythm at this time. Cardiology has been consulted and we will await their further recommendations. The patient is very lethargic and hard to arouse. She does say a few words but seems to drift back into drowsiness. According to the nursing staff she has been this way most of the admission. We will obtain a MRI of the brain tomorrow for further evaluation of her stroke. She is being treated for her uncontrolled diabetic ketoacidosis and we will await further recommendations from critical care medicine and Dr. Ferrari. 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 She was also noted to have some evidence of hyperkalemia in the emergency room with a serum potassium of 6.7. She was given a dose of Kayexalate by mouth and her potassium is normalized. The patient is a poor historian at this time. She is moving all extremities. Her memory and intellectual functions are clearly impaired. Neurology is now been consulted for further evaluation and recommendations. Review of Systems ROS unobtainable: due to mental status Constitutional: Denies chills, Denies fever Eyes: denies blurred vision, denies pain Ears, nose, mouth and throat: Denies headache, Denies sore throat Cardiovascular: Denies chest pain, Denies shortness of breath Respiratory: Denies cough Gastrointestinal: Denies abdominal pain, Denies diarrhea, Denies nausea, Denies vomiting Genitourinary: Denies dysuria, Denies hematuria Musculoskeletal: Denies myalgias Integumentary: Denies pruritus, Denies rash Neurological: Reports confusion, Reports memory loss, Denies numbness, Denies weakness Psychiatric: Reports confusion, Denies anxiety, Denies depression Endocrine: Denies fatigue, Denies weight change Past Medical History Past Medical History: Atrial Fibrillation, Diabetes Mellitus, GERD/Reflux, Sleep Apnea/CPAP/BIPAP, Thyroid Disorder Additional Past Medical History / Comment(s): no cpap used, arthritis, thyroid nodule, Karis disease History of Any Multi-Drug Resistant Organisms: None Reported Past Surgical History: Bariatric Surgery, Cholecystectomy, Tonsillectomy Additional Past Surgical History / Comment(s): right ovary removed, Past Anesthesia/Blood Transfusion Reactions: No Reported Reaction, Family History of Problems w/ Anesthesia Additional Past Anesthesia/Blood Transfusion Reaction / Comment(s): DIFFICULTY WITH INTUBATION-NEEDS SMALL TUBE. Needs to use a child's one. mother has diff coming out Past Psychological History: No Psychological Hx Reported Smoking Status: Never smoker Past Alcohol Use History: None Reported Past Drug Use History: None Reported - Past Family History Mother Family Medical History: No Reported History Father Family Medical History: Myocardial Infarction ([place]) Medications and Allergies Home Medications Medication Instructions Recorded Confirmed Type Insulin Aspart [NovoLOG] See Protocol SQ CONTINUOUS 08/18/15 09/22/18 History Metoprolol Tartrate 25 mg PO BID 08/07/16 09/22/18 History Levothyroxine Sodium [Synthroid] 75 mcg PO DAILY 11/27/17 09/22/18 History Atorvastatin [Lipitor] 40 mg PO HS 09/22/18 09/22/18 History Clopidogrel [Plavix] 75 mg PO DAILY 09/22/18 09/22/18 History Allergies Allergy/AdvReac Type Severity Reaction Status Date / Time Penicillins Allergy Unknown Verified 09/22/18 14:00 Physical Examination - Vital Signs Vital Signs: Vital Signs Temp Pulse Pulse Resp BP BP Pulse Ox 09/22/18 17:03 98.2 F 105 H 14 107/61 98 09/22/18 17:00 112 H 19 103/63 99 09/22/18 16:30 98.0 F 104 H 18 101/66 98 09/22/18 16:00 108 H 18 99 09/22/18 15:30 98 20 114/64 99 09/22/18 15:00 101 H 18 115/65 99 09/22/18 14:30 101 H 20 86/74 98 09/22/18 14:00 94 20 102/81 99 09/22/18 13:31 110 H 18 124/45 97 09/22/18 13:01 107 H 20 101/58 98 09/22/18 12:30 104 H 20 120/74 99 09/22/18 12:13 100 09/22/18 11:59 97.4 F L 112 H 20 120/74 100 Intake and Output 09/22/18 09/22/18 09/22/18 06:59 14:59 22:59 Intake Total 1.97 10.066 Balance 1.97 10.066 Intake: Intake, IV Titration 1.97 10.066 Amount Insulin Regular 100 unit 1.97 10.066 In Sodium Chloride 0.9% 100 ml @ 3 UNIT/HR 3.03 mls/hr IV .Q24H ONE Rx#: [id number] Other: Weight 68.039 kg 78 kg - Constitutional General appearance: average body habitus, cooperative - EENT EENT: PERRL, mucous membranes moist - Respiratory Respiratory: lungs clear, normal breath sounds - Cardiovascular Cardiovascular: regular rate, normal S1, normal S2 Extremities: no peripheral edema bilaterally - Gastrointestinal Gastrointestinal: normoactive bowel sounds - Integumentary Integumentary: normal - Neurologic Cranial nerve examination: PERRL, EOMI, VFF, V1/V2/V3 grossly intact, tongue midline, intact gag reflex, intact corneal reflex, facial droop (There is slight facial asymmetry on the right.), normal palatal elevation Speech examination: intact Sensorimotor examination: intact Motor examination - right side: 3/5: biceps, triceps, wrist flexion, wrist extension, quantitative developer, hip flexors, knee extensors, dorsiflexion, toe extension (EHL) , plantarflexion Motor examination - left side: 3/5: biceps, triceps, wrist flexion, wrist extension, quantitative developer, hip flexors, knee extensors, dorsiflexion, toe extension (EHL) , plantarflexion Detailed sensory examination: intact Reflex and gait examination: intact Reflexes: 1+: ankle, bicep, knee, tricep - Musculoskeletal Musculoskeletal: no pain - Psychiatric Psychiatric: mood/affect appropriate Results - Laboratory Findings CBC and BMP: 09/22/18 12:22 09/22/18 20:14 Abnormal Lab Findings: Abnormal Labs 09/22/18 09/22/18 09/22/18 12:19 12:22 12:22 WBC 15.3 H MCV 100.4 H D MCHC 29.2 L Neutrophils # 13.5 H Lymphocytes # 0.8 L VBG pH VBG pCO2 VBG HCO3 Sodium 136 L Potassium 6.7 H* Chloride 97 L Carbon Dioxide <5 L* BUN 34 H Creatinine 1.94 H Glucose 813 H* POC Glucose (mg/dL) >600 H Osmolality Plasma Lactic Acid Apolinar 09/22/18 09/22/18 09/22/18 12:22 12:22 14:18 WBC MCV MCHC Neutrophils # Lymphocytes # VBG pH VBG pCO2 VBG HCO3 Sodium Potassium Chloride Carbon Dioxide BUN Creatinine Glucose POC Glucose (mg/dL) >600 H Osmolality 347 H* Plasma Lactic Acid Apolinar 6.8 H* 09/22/18 09/22/18 09/22/18 15:25 16:24 16:24 WBC MCV MCHC Neutrophils # Lymphocytes # VBG pH 7.11 L* VBG pCO2 22 L VBG HCO3 7 L* Sodium Potassium Chloride Carbon Dioxide BUN Creatinine Glucose POC Glucose (mg/dL) >600 H Osmolality Plasma Lactic Acid Apolinar 3.2 H* 09/22/18 09/22/18 09/22/18 16:28 17:46 19:02 WBC MCV MCHC Neutrophils # Lymphocytes # VBG pH VBG pCO2 VBG HCO3 Sodium Potassium Chloride Carbon Dioxide BUN Creatinine Glucose POC Glucose (mg/dL) 533 H 464 H 358 H Osmolality Plasma Lactic Acid Apolinar 09/22/18 20:05 WBC MCV MCHC Neutrophils # Lymphocytes # VBG pH VBG pCO2 VBG HCO3 Sodium Potassium Chloride Carbon Dioxide BUN Creatinine Glucose POC Glucose (mg/dL) 320 H Osmolality Plasma Lactic Acid Apolinar Assessment and Plan (1) Acute ischemic left MCA stroke Current Visit: Yes Status: Acute Code(s): I63.512 - CEREB INFRC D/T UNSP OCCLS OR STENOS OF LEFT MID CEREB ART SNOMED Code(s): 157360203 (2) Diabetic ketoacidosis Current Visit: Yes Status: Acute Code(s): E13.10 - OTH DIABETES MELLITUS WITH KETOACIDOSIS WITHOUT COMA SNOMED Code(s): 027903467 (3) Dehydration Current Visit: Yes Status: Acute Code(s): E86.0 - DEHYDRATION SNOMED Code( s): 10846520 (4) History of CVA (cerebrovascular accident) Current Visit: Yes Status: Acute Code(s): Z86.73 - PRSNL HX OF TIA (TIA), AND CEREB INFRC W/O RESID DEFICITS SNOMED Code(s): 186814596 (5) Hyperosmolarity due to secondary diabetes mellitus Current Visit: Yes Status: Acute Code(s): E13.00 - OTH DIAB W HYPROSM W/O NONKET HYPRGLY-HYPROS COMA (NKHHC) SNOMED Code(s): 69436668 Plan: This patient is a 63-year-old right-handed white female admitted to [facility] for evaluation of increasing lethargy and confusion at home. Patient was recently discharged from [facility] after suffering a stroke about 2 weeks ago. She was taking Plavix and aspirin upon discharge from that hospital. Patient apparently today was noted to have increased confusion and disorientation which is felt to be much worse than her last presentation at the hospital. EMS was called to the home and she was transported to the emergency room at [facility] for further evaluation. The patient was evaluated in the emergency room by Dr. Arroyo. She was sent for a computed tomography scan of the brain which revealed evidence of an acute to subacute left thalamic stroke. Patient was subsequent admitted to the hospital for further management. She was being treated for diabetic ketoacidosis and was started on insulin drip. Her blood sugars have steadily come down in the ICU. Her neurological examination is consistent with a diffuse metabolic encephalopathy. We have recommended the patient undergo an MRI of the brain tomorrow for further characterization and evaluation of recent left thalamic stroke. She is to continue on Plavix and aspirin for secondary stroke prevention. Her overall prognosis at this time remains very guarded. We will continue close neurological follow-up at this patient in the intensive care unit. Time with Patient: Greater than 30
[2018-09-22 23:55] LABS: Glucose,Whole Blood 241 mg/dL (75-99)
[2018-09-23 00:16] LABS: Appearance,Urine Cloudy (Clear); Bacteria,Urine Rare /hpf; Bilirubin,Urine Negative (Negative); Blood,Urine Trace (Negative); Color,Urine Yellow; Glucose,Urine (UA) 4+ (Negative); Leukocyte Esterase,Urine Moderate (Negative); Mucus,Urine Rare /hpf; Nitrite,Urine Negative (Negative); Protein,Urine 1+ (Negative); RBC,Urine 1 /hpf (0-5); Specific Gravity,Urine 1.016 (1.001-1.035); Squamous Epithelial Cell,Urine 3 /hpf (0-4); Urobilinogen,Urine <2.0 mg/dL (<2.0); WBC,Urine 23 /hpf (0-5)
[2018-09-23 00:21] LABS: Ketones,Urine 3+ (Negative)
[2018-09-23 01:16] LABS: Glucose,Whole Blood 234 mg/dL (75-99)
[2018-09-23 01:35] LABS: Phosphorus 1.2 mg/dL (2.5-4.5); Potassium 4.4 mmol/L (3.5-5.1)
[2018-09-23 02:03] LABS: Glucose,Whole Blood 179 mg/dL (75-99)
[2018-09-23 03:05] LABS: Glucose,Whole Blood 182 mg/dL (75-99)
[2018-09-23 03:52] LABS: Glucose,Whole Blood 127 mg/dL (75-99)
[2018-09-23 04:53] LABS: Basophils % (A) 0 %; Eosinophils % (A) 0 %; HCT 34.5 % (34.0-46.0); HGB 11.4 gm/dL (11.4-16.0); Lymphocytes # (A) 0.9 k/uL (1.0-4.8); Lymphocytes % (A) 7 %; MCHC 33.1 g/dL (31.0-37.0); Mean Platelet Volume 7.1; Monocytes # (A) 1.1 k/uL (0-1.0); Monocytes % (A) 9 %; Neutrophils # (A) 9.8 k/uL (1.3-7.7); Neutrophils % (A) 82 %; Platelet Count 248 k/uL (150-450); RBC 3.81 m/uL (3.80-5.40); RDW 12.9 % (11.5-15.5)
[2018-09-23 04:57] LABS: MCV 90.4 fL (80.0-100.0)
[2018-09-23 05:08] LABS: Albumin 3.9 g/dL (3.5-5.0); Calcium 9.7 mg/dL (8.4-10.2); Magnesium 2.1 mg/dL (1.6-2.3); Potassium 4.5 mmol/L (3.5-5.1); Total Bilirubin 0.4 mg/dL (0.2-1.3)
[2018-09-23 05:09] LABS: Glucose,Whole Blood 108 mg/dL (75-99)
[2018-09-23] MEDS: D5-0.45% NACL WITH KCL 20MEQ/L 1,000 ML IV SCH ×2 (05:16→15:29)
[2018-09-23] MEDS: INSULIN REGULAR 100 UNIT in SODIUM CHLORIDE 0.9% 100 ML IV SCH (05:17)
[2018-09-23 06:10] LABS: Glucose,Whole Blood 108 mg/dL (75-99)
[2018-09-23] MEDS ORDERED: INSULIN NPH 300 UNIT/3 ML VIAL SQ ONE (06:20)
[2018-09-23] MEDS ORDERED: SODIUM GLYCEROPHOSPHATE 10 MMOL in SODIUM CHLORIDE 0.9% 250 ML IV ONE (07:00)
[2018-09-23 07:34] LABS: Glucose,Whole Blood 210 mg/dL (75-99)
[2018-09-23] MEDS: LEVOTHYROXINE 75 MCG TAB PO SCH (08:19)
[2018-09-23] MEDS: PANTOPRAZOLE 40 MG TABLET PO SCH (08:19)
[2018-09-23] MEDS: HEPARIN SODIUM,PORCINE 5,000 UNIT/ML 1 ML VIAL SQ SCH ×2 (08:20→23:56)
[2018-09-23] MEDS: METOPROLOL TARTRATE 25 MG TAB PO SCH ×2 (08:20→23:59)
[2018-09-23] MEDS: INSULIN ASPART 100 UNIT/ML 1 ML 10 ML VIAL SQ SCH ×7 (08:27→23:56)
[2018-09-23] MEDS ORDERED: CLOPIDOGREL 75 MG TAB PO SCH (09:00)
--- NOTE | 2018-09-23 10:50 | MR ---
EXAMINATION TYPE: MR brain wo con DATE OF EXAM: 09/23/2018 10:36 AM. COMPARISON: CT scan of the brain dated 09/22/2018. HISTORY: Left thalamic infarct. Technique: Multiplanar, multiecho imaging of the brain was obtained without intravenous contrast. FINDINGS: The study is compromised by patient motion artifact. Midline structures are unremarkable. There is a normal craniocervical junction. Echoplanar diffusion imaging fails to show areas of restricted diffusion. There are normal vascular flow voids. The orbits are unremarkable. There is no evidence of a CP angle mass lesion. In the region of the lesions seen on CT there is a high intensity 1.8 x 1.9 cm lesion on both T2 and FLAIR imaging. This area is obscured on the T1 sagittal images due to patient motion artifact. There are is some questionable blooming adjacent to this. There is also some confluent periventricular white matter change. There is no apparent mass effect, m idline shift or intracranial blood. IMPRESSION: 1.9 CM LESION IN THE LEFT THALAMUS WHICH DOES NOT REPRESENT ACUTE ISCHEMIA. THIS MAY RELATE TO PREVIO US BLEEDING. A POSTCONTRAST MR WOULD BE SUGGESTED.
--- NOTE | 2018-09-23 10:59 | CONS ---
CONSULTATION ATTENDING: Dr. Rosenbaum and Dr. Keenan. HISTORY OF PRESENT ILLNESS: Mrs. Mauricio is a 63-year-old female known history of diabetes mellitus, who presented with worsening confusion and was noted to be in DKA. According to the notes, the patient was recently admitted to [facility] with CVA 2 weeks ago affecting her left side. She has history of Karis disease. I am not able to obtain any history from the patient. She is awake but quite confused. Reviewing the old records, the patient was in the hospital in August of 2016 and at that time had underwent a stress echocardiogram that revealed no evidence of inducible ischemia. She carried the diagnosis at that time, paroxysmal atrial fibrillation, but was not anticoagulated and it is unclear to me if she had any further episode of atrial fibrillation upon her recent admission, the records from [facility] are not available to me. Since her presentation to [facility], she has been in sinus mechanism. No other history is obtained. The patient has no documented history of myocardial infarction or congestive heart failure. Hemodynamically, she has been stable since her presentation. MEDICATION: Her medications at home include metoprolol, levothyroxine, insulin, Plavix 75 mg daily, Lipitor. On presentation at this time, her blood sugar was 813. Her bicarb was less than 5. Potassium 6.7 and her osmolality was 347. Her troponin less than 0.012. She was subsequently treated for her DKA and her blood sugar has come down and her metabolic acidosis resolved. REVIEW OF SYSTEMS: Could not be obtained. PHYSICAL EXAMINATION: She is a 63-year-old female, alert, confused, in no apparent distress. Blood pressure running in the 90s-100 with a heart in the 80s in sinus. HEAD: Normocephalic. Eyes: Sclerae anicteric. Neck: No bruit. Lungs are clear to auscultation. HEART: Regular rate and rhythm S1, S2. No S3. No murmur or rub appreciated. ABDOMEN: Soft, nontender. Positive bowel sounds. No organomegaly. EXTREMITIES: No significant edema. LAB DATA: BUN and creatinine 32 and 1.09 today. Her potassium 4.5, hemoglobin of 11.4. Her cholesterol is 115 with an LDL of 52. Her EKG revealed a sinus mechanism, rate of [address]-T wave changes. Her chest x-ray shows no acute infiltrate and her brain CT revealed acute to subacute left thalamic lacunar injury. No evidence of bleeding was noted. IMPRESSION: 1. Acute change in mental status with possible extension of recent stroke. 2. Recent stroke, the details of her records at that time are not available. 3. Diabetic ketoacidosis on presentation, improved. 4. Diabetes mellitus, on insulin pump. 5. History of paroxysmal atrial fibrillation in the chart, report in 2016, although I do not have any documentation of that at this point. The patient has not been anticoagulated on admission and I would assume that she was not in atrial fibrillation at the time of her presentation to [facility]. I will try to obtain those records. At this time, I will hold on anticoagulation until we get some more information her. RECOMMENDATIONS: 1. I will obtain echocardiogram with Doppler. 2. Continue clinical observation and present therapy. 3. Follow her renal function and her blood pressure. 4. Depending on her progress, further recommendations will be made. 5. Thank you for this consult. We will follow with you. MMODL / IJN: [id number] /
--- NOTE | 2018-09-23 11:24 | P.CNPUL ---
History of Present Illness Consult date: 09/23/18 Requesting physician: Nadiya Keenan Reason for consult: other (Acute diabetic ketoacidosis, possible evolving CVA.) Chief complaint: Elevated blood sugars History of present illness: This is a 63-year-old female with known history of type 1 diabetes, on insulin pump, patient was recently admitted to [facility] in [place], and supposedly she had a CVA. Patient was eventually discharged home on Plavix and aspirin. Patient is also known to have history of chronic atrial fibrillation, and history of Karis's disease. She presented last night to the ER with increased confusion, lethargy, and significantly elevated blood sugar. Supposedly the patient is on insulin pump, but there is definite question of compliance considering the change in her mental status and possible recurrent CVA. While in the ER, her sugar was found to be 813, positive ketones noted, and there is anion gap metabolic acidosis noted. Her lactic acid was 6.8. BUN was 34 creatinine 1.9. At any rate patient had a CT of the brain, and it showed acute/subacute left thalamic lacunar injury extending into the posterior limb of the internal capsule. No hemorrhage was noted. He was seen by neurology, and MRI was requested. It showed a 1.9 cm lesion in the left thalamus which does not represent acute ischemia felt that this may relate to previous bleeding and the radiologist recommended a postcontrast MRI. Patient remains presently on the DKA protocol, patient is encephalopathic, the only recommendation from the neurologist is to continue Plavix and aspirin for secondary stroke prevention. As far as her DKA is concerned, the anion gap is resolved, and her blood sugars are controlled, patient is now on insulin subcu as per protocol. However patient may have to stay in the ICU because of her mental status change, and possibly evolving stroke. Review of Systems Patient is an extremely poor historian, and she seems to be quite confused and encephalopathic ROS unobtainable: due to mental status Past Medical History Past Medical History: Atrial Fibrillation, Diabetes Mellitus, GERD/Reflux, Sleep Apnea/CPAP/BIPAP, Thyroid Disorder Additional Past Medical History / Comment(s): no cpap used, arthritis, thyroid nodule, Karis disease History of Any Multi-Drug Resistant Organisms: None Reported Past Surgical History: Bariatric Surgery, Cholecystectomy, Tonsillectomy Additional Past Surgical History / Comment(s): right ovary removed, Past Anesthesia/Blood Transfusion Reactions: No Reported Reaction, Family History of Problems w/ Anesthesia Additional Past Anesthesia/Blood Transfusion Reaction / Comment(s): DIFFICULTY WITH INTUBATION-NEEDS SMALL TUBE. Needs to use a child's one. mother has diff coming out Past Psychological History: No Psychological Hx Reported Smoking Status: Never smoker Past Alcohol Use History: None Reported Past Drug Use History: None Reported - Past Family History Mother Family Medical History: No Reported History Father Family Medical History: Myocardial Infarction (DE) Medications and Allergies Home Medications Medication Instructions Recorded Confirmed Type Insulin Aspart [NovoLOG] See Protocol SQ CONTINUOUS 08/18/15 09/22/18 History Metoprolol Tartrate 25 mg PO BID 08/07/16 09/22/18 History Levothyroxine Sodium [Synthroid] 75 mcg PO DAILY 11/27/17 09/22/18 History Atorvastatin [Lipitor] 40 mg PO HS 09/22/18 09/22/18 History Clopidogrel [Plavix] 75 mg PO DAILY 09/22/18 09/22/18 History Allergies Allergy/AdvReac Type Severity Reaction Status Date / Time Penicillins Allergy Unknown Verified 09/22/18 14:00 Physical Exam Vitals: Vital Signs Temp Pulse Pulse Resp BP BP Pulse Ox 09/23/18 11:00 72 20 100/58 96 09/23/18 10:30 72 16 96/56 09/23/18 10:00 16 96/56 09/23/18 09:30 71 19 86/50 98 09/23/18 09:00 75 14 120/66 94 L 09/23/18 08:30 86 21 90/53 94 L 09/23/18 08:00 99.6 F 80 17 94/49 97 09/23/18 07:30 78 10 L 110/85 97 09/23/18 07:00 81 16 99/53 96 09/23/18 06:30 79 16 82/53 95 09/23/18 06:00 76 18 85/46 94 L 09/23/18 05:30 82 7 L 86/62 97 09/23/18 05:00 82 21 96/78 95 09/23/18 04:30 86 14 92/57 97 09/23/18 04:00 78 80 15 92/60 97 09/23/18 03:30 100 F H 78 12 105/78 97 09/23/18 03:00 92 23 84/53 96 09/23/18 02:30 78 16 86/50 94 L 09/23/18 02:00 79 17 89/54 93 L 09/23/18 01:30 78 15 94/49 95 09/23/18 01:00 86 18 103/56 96 09/23/18 00:30 84 18 87/53 97 09/23/18 00:00 99.4 F 80 16 93/62 98 09/22/18 23:59 79 11 L 93/62 96 09/22/18 23:54 80 17 09/22/18 23:30 99.2 F 84 17 91/51 94 L 09/22/18 23:00 81 17 86/53 95 09/22/18 22:30 85 17 93/56 97 09/22/18 22:00 82 16 96/47 09/22/18 21:30 89 21 79/57 96 09/22/18 21:00 101 H 15 90/67 97 09/22/18 20:30 98 18 94/61 96 09/22/18 20:00 98.2 F 99 80 15 107/73 98 09/22/18 19:30 106 H 18 96/58 64 L 09/22/18 19:00 102 H 9 L 96/53 96 09/22/18 18:30 105 H 20 107/61 98 09/22/18 18:00 106 H 19 115/64 98 09/22/18 17:30 116 H 16 115/63 99 09/22/18 17:03 98.2 F 105 H 14 107/61 98 09/22/18 17:00 112 H 19 103/63 99 09/22/18 16:30 98.0 F 104 H 18 101/66 98 09/22/18 16:00 108 H 18 99 09/22/18 15:30 98 20 114/64 99 02 15:00 101 H 18 115/65 99 09/22/18 14:30 101 H 20 86/74 98 09/22/18 14:00 94 20 102/81 99 09/22/18 13:31 110 H 18 124/45 97 09/22/18 13:01 107 H 20 101/58 98 09/22/18 12:30 104 H 20 120/74 99 09/22/18 12:13 100 09/22/18 11:59 97.4 F L 112 H 20 120/74 100 Intake and Output 09/22/18 09/23/18 09/23/18 22:59 06:59 14:59 Intake Total 970.735 5487.481 500 Output Total 1035 280 Balance 560.066 139.481 220 Intake: IV 550 1100 500 D5-0.45% NaCl with KCl 150 1100 250 20Meq/l 1,000 ml @ 50 mls /hr IV .Q20H INDIRA Rx#: [id number] Sodium Chloride 0.9% 1, 400 000 ml @ 100 mls/hr IV . Q10H STA Rx#:[id number] Sodium Glycerophosphate 250 10 mmol In Sodium Chloride 0.9% 250 ml @ 31 .25 mls/hr IV ONCE ONE Rx #:[id number] Intake, IV Titration 10.066 74.481 Amount Insulin Regular 100 unit 74.481 In Sodium Chloride 0.9% 100 ml @ 0.1 UNITS/KG/HR 6.87 mls/hr IV .[id number] PENDING SALE TO [facility] Rx#:[id number] Insulin Regular 100 unit 10.066 In Sodium Chloride 0.9% 100 ml @ 3 UNIT/HR 3.03 mls/hr IV .Q24H ONE Rx#: [id number] Output: Urine 1035 280 Other: Voiding Method Indwelling Catheter # Voids 1 1 # Bowel Movements 1 Weight 78 kg 77.9 kg 77.9 kg Physical Exam: Revealed a 63-year-old female, confused, in no form of respiratory distress. Head: Atraumatic, normocephalic. HEENT:[Neck is supple.] [No neck masses.] [No thyromegaly.] [No JVD.] PERRLA, EOMI, no icterus. Chest: [Clear throughout, no crackles, no rhonchi, no wheezes.] Cardiac Exam: [Normal S1 and S2, no S3 gallop, no murmur.] Abdomen: [Soft, nontender, no megaly, no rebound, no guarding, normal bowel sounds.] Extremities: [No clubbing, no edema, no cyanosis.] Neurological Exam: Patient is confused, has no idea where she really is, minimal right-sided weakness is noted, strength on the right side is 3/5, however strength on the left side is 4/5. Psychiatric: Confused, blunt affect, poor mental status examination, poor insight. Musculoskeletal: As noted above, clearly has right-sided weakness. Skin: No rashes. Results - Laboratory Findings CBC and BMP: 09/23/18 04:33 09/23/18 04:33 PT/INR, D-dimer PT 10.3 sec (9.0-12.0) 09/22/18 12:22 INR 1.1 (<1.2) 09/22/18 12:22 Abnormal lab findings: Abnormal Labs 09/22/18 09/22/18 09/22/18 00:00 12:19 12:22 WBC 15.3 H MCV 100.4 H D MCHC 29.2 L Neutrophils # 13.5 H Lymphocytes # 0.8 L Monocytes # VBG pH VBG pCO2 VBG HCO3 Sodium Potassium Chloride Carbon Dioxide BUN Creatinine Glucose POC Glucose (mg/dL) >600 H Osmolality Plasma Lactic Acid Apolinar Phosphorus Alkaline Phosphatase Urine Appearance Cloudy H Urine Protein 1+ H Urine Glucose (UA) 4+ H Urine Ketones 3+ H Urine Blood Trace H Ur Leukocyte Esterase Moderate H Urine WBC 23 H Urine Bacteria Rare H Urine Mucus Rare H 09/22/18 09/22/18 09/22/18 12:22 12:22 12:22 WBC MCV MCHC Neutrophils # Lymphocytes # Monocytes # VBG pH VBG pCO2 VBG HCO3 Sodium 136 L Potassium 6.7 H* Chloride 97 L Carbon Dioxide <5 L* BUN 34 H Creatinine 1.94 H Glucose 813 H* POC Glucose (mg/dL) Osmolality 347 H* Plasma Lactic Acid Apolinar 6.8 H* Phosphorus Alkaline Phosphatase Urine Appearance Urine Protein Urine Glucose (UA) Urine Ketones Urine Blood Ur Leukocyte Esterase Urine WBC Urine Bacteria Urine Mucus 09/22/18 09/22/18 09/22/18 14:18 15:25 16:24 WBC MCV MCHC Neutrophils # Lymphocytes # Monocytes # VBG pH 7.11 L* VBG pCO2 22 L VBG HCO3 7 L* Sodium Potassium Chloride Carbon Dioxide BUN Creatinine Glucose POC Glucose (mg/dL) >600 H >600 H Osmolality Plasma Lactic Acid Apolinar Phosphorus Alkaline Phosphatase Urine Appearance Urine Protein Urine Glucose (UA) Urine Ketones Urine Blood Ur Leukocyte Esterase Urine WBC Urine Bacteria Urine Mucus 09/22/18 09/22/18 09/22/18 16:24 16:28 17:46 WBC MCV MCHC Neutrophils # Lymphocytes # Monocytes # VBG pH VBG pCO2 VBG HCO3 Sodium Potassium Chloride Carbon Dioxide BUN Creatinine Glucose POC Glucose (mg/dL) 533 H 464 H Osmolality Plasma Lactic Acid Apolinar 3.2 H* Phosphorus Alkaline Phosphatase Urine Appearance Urine Protein Urine Glucose (UA) Urine Ketones Urine Blood Ur Leukocyte Esterase Urine WBC Urine Bacteria Urine Mucus 09/22/18 09/22/18 09/22/18 19:02 20:05 20:14 WBC MCV MCHC Neutrophils # Lymphocytes # Monocytes # VBG pH VBG pCO2 VBG HCO3 Sodium Potassium Chloride 111 H Carbon Dioxide 14 L BUN 38 H Creatinine 1.50 H Glucose 337 H POC Glucose (mg/dL) 358 H 320 H Osmolality Plasma Lactic Acid Apolinar Phosphorus 1.0 L* Alkaline Phosphatase Urine Appearance Urine Protein Urine Glucose (UA) Urine Ketones Urine Blood Ur Leukocyte Esterase Urine WBC Urine Bacteria Urine Mucus 09/22/18 09/22/18 09/22/18 20:58 22:08 23:05 WBC MCV MCHC Neutrophils # Lymphocytes # Monocytes # VBG pH VBG pCO2 VBG HCO3 Sodium Potassium Chloride Carbon Dioxide BUN Creatinine Glucose POC Glucose (mg/dL) 316 H 238 H 267 H Osmolality Plasma Lactic Acid Apolinar Phosphorus Alkaline Phosphatase Urine Appearance Urine Protein Urine Glucose (UA) Urine Ketones Urine Blood Ur Leukocyte Esterase Urine WBC Urine Bacteria Urine Mucus 09/22/18 09/23/18 09/23/18 23:54 00:53 01:13 WBC MCV MCHC Neutrophils # Lymphocytes # Monocytes # VBG pH VBG pCO2 VBG HCO3 Sodium Potassium Chloride 115 H Carbon Dioxide 19 L BUN 36 H Creatinine 1.23 H Glucose POC Glucose (mg/dL) 241 H 234 H Osmolality Plasma Lactic Acid Apolinar Phosphorus 1.2 L Alkaline Phosphatase Urine Appearance Urine Protein Urine Glucose (UA) Urine Ketones Urine Blood Ur Leukocyte Esterase Urine WBC Urine Bacteria Urine Mucus 09/23/18 09/23/18 09/23/18 02:02 03:04 03:50 WBC MCV MCHC Neutrophils # Lymphocytes # Monocytes # VBG pH VBG pCO2 VBG HCO3 Sodium Potassium Chloride Carbon Dioxide BUN Creatinine Glucose POC Glucose (mg/dL) 179 H 182 H 127 H Osmolality Plasma Lactic Acid Apolinar Phosphorus Alkaline Phosphatase Urine Appearance Urine Protein Urine Glucose (UA) Urine Ketones Urine Blood Ur Leukocyte Esterase Urine WBC Urine Bacteria Urine Mucus 09/23/18 09/23/18 09/23/18 04:33 04:33 05:07 WBC 12.0 H MCV MCHC Neutrophils # 9.8 H Lymphocytes # 0.9 L Monocytes # 1.1 H VBG pH VBG pCO2 VBG HCO3 Sodium Potassium Chloride 117 H Carbon Dioxide 18 L BUN 32 H Creatinine 1.09 H Glucose 111 H POC Glucose (mg/dL) 108 H Osmolality Plasma Lactic Acid Apolinar Phosphorus Alkaline Phosphatase 28 L Urine Appearance Urine Protein Urine Glucose (UA) Urine Ketones Urine Blood Ur Leukocyte Esterase Urine WBC Urine Bacteria Urine Mucus 09/23/18 09/23/18 06:08 07:33 WBC MCV MCHC Neutrophils # Lymphocytes # Monocytes # VBG pH VBG pCO2 VBG HCO3 Sodium Potassium Chloride Carbon Dioxide BUN Creatinine Glucose POC Glucose (mg/dL) 108 H 210 H Osmolality Plasma Lactic Acid Apolinar Phosphorus Alkaline Phosphatase Urine Appearance Urine Protein Urine Glucose (UA) Urine Ketones Urine Blood Ur Leukocyte Esterase Urine WBC Urine Bacteria Urine Mucus - Diagnostic Findings Chest x-ray: image reviewed (No acute process was noted.) Additional studies: CT of the brain MRI of the brain reports were noted, Assessment and Plan Assessment: Impression: 1 acute diabetic ketoacidosis, however the patient is doing well, continue protocol for treatment of DKA. 2 subacute CVA, possible evolving or recurrent CVA involving the left thalamic area as noted on the MRI. 3 acute kidney injury related to diabetic ketoacidosis and dehydration. 4 history of paroxysmal atrial fibrillation, 5 history of Karis's disease 6 acute encephalopathy could be metabolic in nature or could be related to her underlying CVA. Recommendation: Continue present treatment plan of DKA as per protocol, continue antiplatelet therapy as per neurological recommendation, continue GI and DVT prophylaxis, patient will remain in the ICU for now, unless the neurologist on the case feels otherwise. Prognosis is definitely poor and guarded at this point. We'll continue to monitor in the ICU for now. Time with Patient: Greater than 30
[2018-09-23 13:28] LABS: Glucose,Whole Blood 124 mg/dL (75-99)
[2018-09-23 16:27] LABS: Glucose,Whole Blood 220 mg/dL (75-99)
--- NOTE | 2018-09-23 16:37 | P.PN ---
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 Patient was brought into the emergency room due to increasing confusion and lethargy with elevated blood sugar. Daughter called EMS and EMS reported a blood sugar of 563. Patient was given IV fluids and Route. According to the patient's daughter patient had a stroke about 2 weeks ago. She was admitted to [facility] at that time. She was there for about a week. Her daughter patient had about a 90% recovery. At home patient was taking care of her own insulin pump. On over the last 2 days the daughter noted that her mom was having difficulty managing her insulin pump and medications. The insulin pump battery went low and also it was time to replace insulin. Patient's daughter was unaware of how to use the pump. She tried to check her mother's blood sugar had difficulty with this. She felt that the sugars maybe be low and started to give her PE her mom orange juice. She reports that her mom was very confused and lethargic. Cannot even sit up in a chair. She had loss of bladder control. In the ER she was found to have a glucose of 813 acetone was positive. She has been started on insulin drip. Discussed with ER physician insulin pump will be removed. White count 15.3 sodium 136 potassium 6.7 chloride 97 CO2 less than 5 and anion gap unable calculated BUN 34 creatinine 1.9 for lactic acid 6.8. Patient is receiving IV fluid boluses. She is currently on normal saline at 100 mL an hour. And also on insulin drip. Patient will be admitted to the ICU. Dr. Santiago will be consulted for ICU management. Computed tomography scan of the brain shows an acute subacute traumatic lacunar injury extending into the posterior limb. Neurology will be consulted. Patient is lethargic. She is arousable. She is alert and orientated to name and place. She did not know the year. She did not know her daughter's name. She denies any chest pain or shortness of breath. Denies any nausea or vomiting. Denies any fevers chills or sweats. Denies any bowel movement changes or urinary symptoms. 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 Patient also has had decrease in appetite has not been eating and drinking well at home. On 09/23/2018 patient is alert and oriented 3 in no apparent distress she denies any pain or discomfort at this time there is no fever or chills no headache or dizziness no chest pain no shortness of breath no cough no nausea or vomiting no abdominal pain no diarrhea and no urinary symptoms Buck catheter is in. Labs are improving with creatinine down to 1.23 lactic acid down to 1.4 white blood count down to 12 point Objective - Vital Signs Vital signs: Vital Signs Temp 99.4 F 09/23/18 16:00 Pulse 76 09/23/18 16:00 Resp 20 09/23/18 16:00 BP 95/54 09/23/18 16:00 Pulse Ox 97 09/23/18 16:00 Intake & Output 09/22/18 09/23/18 09/23/18 18:59 06:59 18:59 Intake Total 447.192 5076.481 750 Output Total 1035 570 Balance 112.036 589.481 180 Weight 78 kg 77.9 kg 77.9 kg Intake: IV 100 1550 750 D5-0.45% NaCl with KCl 1250 500 20Meq/l 1,000 ml @ 50 mls /hr IV .Q20H INDIRA Rx#: [id number] Sodium Chloride 0.9% 1, 100 300 000 ml @ 100 mls/hr IV . Q10H STA Rx#:[id number] Sodium Glycerophosphate 250 10 mmol In Sodium Chloride 0.9% 250 ml @ 31 .25 mls/hr IV ONCE ONE Rx #:[id number] Intake, IV Titration 12.036 74.481 Amount Insulin Regular 100 unit 74.481 In Sodium Chloride 0.9% 100 ml @ 0.1 UNITS/KG/HR 6.87 mls/hr IV .[id number] INDIRA Rx#:[id number] Insulin Regular 100 unit 12.036 In Sodium Chloride 0.9% 100 ml @ 3 UNIT/HR 3.03 mls/hr IV .Q24H ONE Rx#: [id number] Output: Urine 1035 570 Other: Voiding Method Indwelling Catheter # Voids 1 # Bowel Movements 1 - Exam Head normocephalic and atraumatic Neck supple no JVD no goiter Lungs clear to auscultation bilaterally no wheezing or crackles. kussmaul respirations Heart regular rate and rhythm S1-S2, no rub or gallop Abdomen is soft nontender nondistended positive bowel sounds no hepatosplenomegaly Extremities no edema no cyanosis or clubbing pulses palpable bilaterally Neuro alert and orientated to 2. She knew her name and location. No slurred speech or facial droop. Patient is lethargic. 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5) mg/dL Alkaline Phosphatase (38-126) U/L Urine Appearance Cloudy H (Clear) Urine Protein 1+ H (Negative) Urine Glucose (UA) 4+ H (Negative) Urine Ketones 3+ H (Negative) Urine Blood Trace H (Negative) Ur Leukocyte Esterase Moderate H (Negative) Urine WBC 23 H (0-5) /hpf Urine Bacteria Rare H (None) /hpf Urine Mucus Rare H (None) /hpf 09/22/18 09/22/18 09/22/18 Range/Units 17:46 19:02 20:05 WBC (3.8-10.6) k/uL Neutrophils # (1.3-7.7) k/uL Lymphocytes # (1.0-4.8) k/uL Monocytes # (0-1.0) k/uL VBG pH (7.31-7.41) VBG pCO2 (37-51) mmHg VBG HCO3 (24-28) mmol/L Chloride (98-107) mmol/L Carbon Dioxide (22-30) mmol/L BUN (7-17) mg/dL Creatinine (0.52-1.04) mg/dL Glucose (74-99) mg/dL POC Glucose (mg/dL) 464 H 358 H 320 H (75-99) mg/dL Plasma Lactic Acid Apolinar (0.7-2.0) mmol/L Phosphorus (2.5-4.5) mg/dL Alkaline Phosphatase (38-126) U/L Urine Appearance (Clear) Urine Protein (Negative) Urine Glucose (UA) (Negative) Urine Ketones (Negative) Urine Blood (Negative) Ur Leukocyte Esterase (Negative) Urine WBC (0-5) /hpf Urine Bacteria (None) /hpf Urine Mucus (None) /hpf 09/22/18 09/22/18 09/22/18 Range/Units 20:14 20:58 22:08 WBC (3.8-10.6) k/uL Neutrophils # (1.3-7.7) k/uL Lymphocytes # (1.0-4.8) k/uL Monocytes # (0-1.0) k/uL VBG pH (7.31-7.41) VBG pCO2 (37-51) mmHg VBG HCO3 (24-28) mmol/L Chloride 111 H (98-107) mmol/L Carbon Dioxide 14 L (22-30) mmol/L BUN 38 H (7-17) mg/dL Creatinine 1.50 H (0.52-1.04) mg/dL Glucose 337 H (74-99) mg/dL POC Glucose (mg/dL) 316 H 238 H (75-99) mg/dL Plasma Lactic Acid Apolinar (0.7-2.0) mmol/L Phosphorus 1.0 L* (2.5-4.5) mg/dL Alkaline Phosphatase (38-126) U/L Urine Appearance (Clear) Urine Protein (Negative) Urine Glucose (UA) (Negative) Urine Ketones (Negative) Urine Blood (Negative) Ur Leukocyte Esterase (Negative) Urine WBC (0-5) /hpf Urine Bacteria (None) /hpf Urine Mucus (None) /hpf 09/22/18 09/22/18 09/23/18 Range/Units 23:05 23:54 00:53 WBC (3.8-10.6) k/uL Neutrophils # (1.3-7.7) k/uL Lymphocytes # (1.0-4.8) k/uL Monocytes # (0-1.0) k/uL VBG pH (7.31-7.41) VBG pCO2 (37-51) mmHg VBG HCO3 (24-28) mmol/L Chloride 115 H (98-107) mmol/L Carbon Dioxide 19 L (22-30) mmol/L BUN 36 H (7-17) mg/dL Creatinine 1.23 H (0.52-1.04) mg/dL Glucose (74-99) mg/dL POC Glucose (mg/dL) 267 H 241 H (75-99) mg/dL Plasma Lactic Acid Apolinar (0.7-2.0) mmol/L Phosphorus 1.2 L (2.5-4.5) mg/dL Alkaline Phosphatase (38-126) U/L Urine Appearance (Clear) Urine Protein (Negative) Urine Glucose (UA) (Negative) Urine Ketones (Negative) Urine Blood (Negative) Ur Leukocyte Esterase (Negative) Urine WBC (0-5) /hpf Urine Bacteria (None) /hpf Urine Mucus (None) /hpf 09/23/18 09/23/18 09/23/18 Range/Units 01:13 02:02 03:04 WBC (3.8-10.6) k/uL Neutrophils # (1.3-7.7) k/uL Lymphocytes # (1.0-4.8) k/uL Monocytes # (0-1.0) k/uL VBG pH (7.31-7.41) VBG pCO2 (37-51) mmHg VBG HCO3 (24-28) mmol/L Chloride (98-107) mmol/L Carbon Dioxide (22-30) mmol/L BUN (7-17) mg/dL Creatinine (0.52-1.04) mg/dL Glucose (74-99) mg/dL POC Glucose (mg/dL) 234 H 179 H 182 H (75-99) mg/dL Plasma Lactic Acid Apolinar (0.7-2.0) mmol/L Phosphorus (2.5-4.5) mg/dL Alkaline Phosphatase (38-126) U/L Urine Appearance (Clear) Urine Protein (Negative) Urine Glucose (UA) (Negative) Urine Ketones (Negative) Urine Blood (Negative) Ur Leukocyte Esterase (Negative) Urine WBC (0-5) /hpf Urine Bacteria (None) /hpf Urine Mucus (None) /hpf 09/23/18 09/23/18 09/23/18 Range/Units 03:50 04:33 04:33 WBC 12.0 H (3.8-10.6) k/uL Neutrophils # 9.8 H (1.3-7.7) k/uL Lymphocytes # 0.9 L (1.0-4.8) k/uL Monocytes # 1.1 H (0-1.0) k/uL VBG pH (7.31-7.41) VBG pCO2 (37-51) mmHg VBG HCO3 (24-28) mmol/L Chloride 117 H (98-107) mmol/L Carbon Dioxide 18 L (22-30) mmol/L BUN 32 H (7-17) mg/dL Creatinine 1.09 H (0.52-1.04) mg/dL Glucose 111 H (74-99) mg/dL POC Glucose (mg/dL) 127 H (75-99) mg/dL Plasma Lactic Acid Apolinar (0.7-2.0) mmol/L Phosphorus (2.5-4.5) mg/dL Alkaline Phosphatase 28 L (38-126) U/L Urine Appearance (Clear) Urine Protein (Negative) Urine Glucose (UA) (Negative) Urine Ketones (Negative) Urine Blood (Negative) Ur Leukocyte Esterase (Negative) Urine WBC (0-5) /hpf Urine Bacteria (None) /hpf Urine Mucus (None) /hpf 09/23/18 09/23/18 09/23/18 Range/Units 05:07 06:08 07:33 WBC (3.8-10.6) k/uL Neutrophils # (1.3-7.7) k/uL Lymphocytes # (1.0-4.8) k/uL Monocytes # (0-1.0) k/uL VBG pH (7.31-7.41) VBG pCO2 (37-51) mmHg VBG HCO3 (24-28) mmol/L Chloride (98-107) mmol/L Carbon Dioxide (22-30) mmol/L BUN (7-17) mg/dL Creatinine (0.52-1.04) mg/dL Glucose (74-99) mg/dL POC Glucose (mg/dL) 108 H 108 H 210 H (75-99) mg/dL Plasma Lactic Acid Apolinar (0.7-2.0) mmol/L Phosphorus (2.5-4.5) mg/dL Alkaline Phosphatase (38-126) U/L Urine Appearance (Clear) Urine Protein (Negative) Urine Glucose (UA) (Negative) Urine Ketones (Negative) Urine Blood (Negative) Ur Leukocyte Esterase (Negative) Urine WBC (0-5) /hpf Urine Bacteria (None) /hpf Urine Mucus (None) /hpf 09/23/18 09/23/18 Range/Units 13:25 16:07 WBC (3.8-10.6) k/uL Neutrophils # (1.3-7.7) k/uL Lymphocytes # (1.0-4.8) k/uL Monocytes # (0-1.0) k/uL VBG pH (7.31-7.41) VBG pCO2 (37-51) mmHg VBG HCO3 (24-28) mmol/L Chloride (98-107) mmol/L Carbon Dioxide (22-30) mmol/L BUN (7-17) mg/dL Creatinine (0.52-1.04) mg/dL Glucose (74-99) mg/dL POC Glucose (mg/dL) 124 H 220 H (75-99) mg/dL Plasma Lactic Acid Apolinar (0.7-2.0) mmol/L Phosphorus (2.5-4.5) mg/dL Alkaline Phosphatase (38-126) U/L Urine Appearance (Clear) Urine Protein (Negative) Urine Glucose (UA) (Negative) Urine Ketones (Negative) Urine Blood (Negative) Ur Leukocyte Esterase (Negative) Urine WBC (0-5) /hpf Urine Bacteria (None) /hpf Urine Mucus (None) /hpf Microbiology - Last 24 Hours (Table) 09/23/18 00:00 Urine Culture - Preliminary Urine,Catheterized Assessment and Plan Plan: 1. Uncontrolled blood sugars with diabetic ketoacidosis secondary to insulin pump being used incorrectly and possibly a low battery. Blood sugar 813 acetone positive CO2 less than 5. Patient placed on insulin drip in the ER. She'll be admitted to the ICU. Dr. Ferrari will be consulted for ICU management. Continue with IV fluids. Discontinue insulin pump. Check urinalysis 2. Acute kidney injury: Likely related to poor oral intake. Patient be given IV fluids. Repeat labs in a.m. 3. Hyperkalemia: potassium 6.7 likely related to acute kidney injury and hyperglycemia. Patient has been given insulin as well as will give a dose of Kayexalate 30 g by mouth 1 4. Elevated lactic acid level of 6.8. Patient being given IV fluids. Repeat lactic acid level 5. Leukocytosis: Possibly related to hyperglycemia. Repeat CBC in a.m. chest x -ray negative. Await urinalysis. 6. Recent stroke 2 weeks ago treated at [facility]. Computed tomography scan of the brain showing acute to subacute left thalamic lacunar injury extending into the posterior limb of the internal capsule. No intracranial hemorrhage or midline shift. Consult neurology. Resume patient's Plavix 7. History of Karis's disease 8. History of paroxysmal atrial fibrillation. Patient had been on aspirin 81 mg by mouth daily prior to her stroke. Patient and daughter report that she had not been on any anticoagulation. Check EKG and continue with telemetry monitoring 7. Acute metabolic encephalopathy with Altered mental status and lethargy secondary to elevated blood sugars present on admission 8. Hyperlipidemia continue statin
--- NOTE | 2018-09-23 17:18 | P.PN ---
Progress Note - Text Progress Note Date: 09/23/18 Patient was seen and examined MRI report reviewed Case discussed with Dr Oropeza at this time he is recommending to discontinue Plavix.
--- NOTE | 2018-09-23 17:26 | EEG ---
ELECTROENCEPHALOGRAM REPORT DATE OF EE09/23/2018. REFERRING PHYSICIAN: Dr. Keenan. CONSULTING PHYSICIAN: Dr. Francesca Oropeza M.D. ELECTROENCEPHALOGRAPHIC EXAMINATION REPORT: INDICATION FOR EXAMINATION: This patient is a 63-year-old female, admitted with diabetic ketoacidosis with blood sugars over 800. Patient with altered mental status and encephalopathy. AGE: [age]. EEG FINDINGS: A routine 21 channel awake digital EEG recording was accomplished utilizing the 10-20 international system with bipolar and referential montages. The background activity in the most alert resting state consists of a low to medium amplitude, poorly developed and poorly sustained 5-6 Hz activity over the posterior head regions. This posterior rhythm attenuates to eye opening. There is a small amount of low amplitude 18-20 Hz beta activity seen maximally over the anterior head regions. Muscle and movement artifact was seen excessively throughout the entire tracing. Hyperventilation was not performed. Photic stimulation at flash frequencies of 2-30 Hz produced a minimal occipital driving response. No epileptiform discharges were seen. IMPRESSION: This EEG gives evidence of a severe widespread diffuse disturbance in cerebral function. The EEG failed to reveal any focal, lateralized, or epileptiform abnormalities. If clinically indicated, a followup EEG is recommended. Clinical correlation is recommended. MMODL / IJN: [id number] /
[2018-09-23] MEDS: LEVOFLOXACIN 250MG-D5W PMX 250 MG in DEXTROSE/WATER 1 50ML.BAG IVPB SCH (19:10)
[2018-09-23 20:34] LABS: Glucose,Whole Blood 254 mg/dL (75-99)
--- NOTE | 2018-09-23 21:47 | P.PN ---
Subjective Progress Note Date: 09/23/18 This patient is a 63-year-old female with a history of type 1 diabetes mellitus on insulin pump. Patient suffered a recent stroke about 2 weeks ago and was admitted to [facility] where she was treated. We did request records yesterday but these are still pending from this hospital. Patient underwent a computed tomography scan of the brain yesterday which revealed evidence of a left thalamic lesion. She was recommended to have MRI of the brain today which was completed and read by Dr. Noguera. The MRI reveals evidence of a 1.9 cm lesion in the left thalamus which does not represent acute ischemia. This may be related to previous bleeding. A postcontrast MR was suggested. The patient yesterday was showing clear signs of metabolic encephalopathy. She had evidence of uncontrolled hyperglycemia. Her blood sugars were size 813 and her acetone was positive. She was started on insulin drip yesterday. Today the patient is more alert and oriented. She does not appear to be in any distress. She denies any headache or fever. At this time given her MRI findings we have recommended that the Plavix be placed on hold until the MR of the brain with contrast study is done. We are still awaiting all of her records to be sent for [facility] so that exact findings at that time could be reviewed. We did discuss the MRI findings today with Dr. Keenan and at this point we have recommended to place her Plavix on hold until further information is obtained. Patient was seen by cardiology today and Dr. Guzman is recommending echocardiogram Doppler to be done. Patient has a history of paroxysmal atrial fibrillation which was found on a documentation from 2016. The patient is not anticoagulated at this time and we will await further recommendations from Dr. Guzman. Patient is remaining on a DKA protocol and her encephalopathy is showing improvement. We will continue to follow her progress closely in the intensive care unit. Objective - Vital Signs Vital signs: Vital Signs Temp 99.4 F 09/23/18 16:00 Pulse 75 09/23/18 19:00 Resp 12 09/23/18 19:00 BP 113/53 09/23/18 19:00 Pulse Ox 97 09/23/18 19:00 Intake & Output 09/23/18 09/23/18 09/24/18 06:59 18:59 05:59 Intake Total 1624.481 850 50 Output Total 1035 650 40 Balance 589.481 200 10 Weight 77.9 kg 77.9 kg Intake: IV 1550 850 50 D5-0.45% NaCl with KCl 1250 600 50 20Meq/l 1,000 ml @ 50 mls /hr IV .Q20H INDIRA Rx#: [id number] Sodium Chloride 0.9% 1, 300 000 ml @ 100 mls/hr IV . Q10H STA Rx#:[id number] Sodium Glycerophosphate 250 10 mmol In Sodium Chloride 0.9% 250 ml @ 31 .25 mls/hr IV ONCE ONE Rx #:[id number] Intake, IV Titration 74.481 Amount Insulin Regular 100 unit 74.481 In Sodium Chloride 0.9% 100 ml @ 0.1 UNITS/KG/HR 6.87 mls/hr IV .[id number] [facility] Rx#:[id number] Output: Urine 1035 650 40 Other: Voiding Method Indwelling Catheter # Voids 1 # Bowel Movements 1 - Exam Physical examination: PHYSICAL EXAMINATION: Patient is resting comfortably in bed. VITAL SIGNS: Blood pressure is [113/53]. Heart rate is [75]. Respiration is [12] . Temperature is [99.4]. HEENT: Head is atraumatic, neck is supple, there were no carotid bruits. CHEST: Lungs are clear to auscultation and percussion. CARDIAC: S1, S2 normal rate and rhythm. There is no murmur. ABDOMEN: Soft and nontender. Bowel sounds are present. EXTREMITIES: There is no pedal edema. Peripheral pulses are present. Neurological examination: Patient's neurological examination shows improvement in her mental status as compared to yesterday. She denies any headache or focal weakness at this time. Her memory and intellectual functions showing slight improvement. - Labs CBC & Chem 7: 09/23/18 04:33 09/23/18 04:33 Labs: Abnormal Lab Results - Last 24 Hours (Table) 09/22/18 09/22/18 09/22/18 Range/Units 00:00 22:08 23:05 WBC (3.8-10.6) k/uL Neutrophils # (1.3-7.7) k/uL Lymphocytes # (1.0-4.8) k/uL Monocytes # (0-1.0) k/uL Chloride (98-107) mmol/L Carbon Dioxide (22-30) mmol/L BUN (7-17) mg/dL Creatinine (0.52-1.04) mg/dL Glucose (74-99) mg/dL POC Glucose (mg/dL) 238 H 267 H (75-99) mg/dL Phosphorus (2.5-4.5) mg/dL Alkaline Phosphatase (38-126) U/L Urine Appearance Cloudy H (Clear) Urine Protein 1+ H (Negative) Urine Glucose (UA) 4+ H (Negative) Urine Ketones 3+ H (Negative) Urine Blood Trace H (Negative) Ur Leukocyte Esterase Moderate H (Negative) Urine WBC 23 H (0-5) /hpf Urine Bacteria Rare H (None) /hpf Urine Mucus Rare H (None) /hpf 09/22/18 09/23/18 09/23/18 Range/Units 23:54 00:53 01:13 WBC (3.8-10.6) k/uL Neutrophils # (1.3-7.7) k/uL Lymphocytes # (1.0-4.8) k/uL Monocytes # (0-1.0) k/uL Chloride 115 H (98-107) mmol/L Carbon Dioxide 19 L (22-30) mmol/L BUN 36 H (7-17) mg/dL Creatinine 1.23 H (0.52-1.04) mg/dL Glucose (74-99) mg/dL POC Glucose (mg/dL) 241 H 234 H (75-99) mg/dL Phosphorus 1.2 L (2.5-4.5) mg/dL Alkaline Phosphatase (38-126) U/L Urine Appearance (Clear) Urine Protein (Negative) Urine Glucose (UA) (Negative) Urine Ketones (Negative) Urine Blood (Negative) Ur Leukocyte Esterase (Negative) Urine WBC (0-5) /hpf Urine Bacteria (None) /hpf Urine Mucus (None) /hpf 09/23/18 09/23/18 09/23/18 Range/Units 02:02 03:04 03:50 WBC (3.8-10.6) k/uL Neutrophils # (1.3-7.7) k/uL Lymphocytes # (1.0-4.8) k/uL Monocytes # (0-1.0) k/uL Chloride (98-107) mmol/L Carbon Dioxide (22-30) mmol/L BUN (7-17) mg/dL Creatinine (0.52-1.04) mg/dL Glucose (74-99) mg/dL POC Glucose (mg/dL) 179 H 182 H 127 H (75-99) mg/dL Phosphorus (2.5-4.5) mg/dL Alkaline Phosphatase (38-126) U/L Urine Appearance (Clear) Urine Protein (Negative) Urine Glucose (UA) (Negative) Urine Ketones (Negative) Urine Blood (Negative) Ur Leukocyte Esterase (Negative) Urine WBC (0-5) /hpf Urine Bacteria (None) /hpf Urine Mucus (None) /hpf 09/23/18 09/23/18 09/23/18 Range/Units 04:33 04:33 05:07 WBC 12.0 H (3.8-10.6) k/uL Neutrophils # 9.8 H (1.3-7.7) k/uL Lymphocytes # 0.9 L (1.0-4.8) k/uL Monocytes # 1.1 H (0-1.0) k/uL Chloride 117 H (98-107) mmol/L Carbon Dioxide 18 L (22-30) mmol/L BUN 32 H (7-17) mg/dL Creatinine 1.09 H (0.52-1.04) mg/dL Glucose 111 H (74-99) mg/dL POC Glucose (mg/dL) 108 H (75-99) mg/dL Phosphorus (2.5-4.5) mg/dL Alkaline Phosphatase 28 L (38-126) U/L Urine Appearance (Clear) Urine Protein (Negative) Urine Glucose (UA) (Negative) Urine Ketones (Negative) Urine Blood (Negative) Ur Leukocyte Esterase (Negative) Urine WBC (0-5) /hpf Urine Bacteria (None) /hpf Urine Mucus (None) /hpf 09/23/18 09/23/18 09/23/18 Range/Units 06:08 07:33 13:25 WBC (3.8-10.6) k/uL Neutrophils # (1.3-7.7) k/uL Lymphocytes # (1.0-4.8) k/uL Monocytes # (0-1.0) k/uL Chloride (98-107) mmol/L Carbon Dioxide (22-30) mmol/L BUN (7-17) mg/dL Creatinine (0.52-1.04) mg/dL Glucose (74-99) mg/dL POC Glucose (mg/dL) 108 H 210 H 124 H (75-99) mg/dL Phosphorus (2.5-4.5) mg/dL Alkaline Phosphatase (38-126) U/L Urine Appearance (Clear) Urine Protein (Negative) Urine Glucose (UA) (Negative) Urine Ketones (Negative) Urine Blood (Negative) Ur Leukocyte Esterase (Negative) Urine WBC (0-5) /hpf Urine Bacteria (None) /hpf Urine Mucus (None) /hpf 09/23/18 09/23/18 Range/Units 16:07 20:32 WBC (3.8-10.6) k/uL Neutrophils # (1.3-7.7) k/uL Lymphocytes # (1.0-4.8) k/uL Monocytes # (0-1.0) k/uL Chloride (98-107) mmol/L Carbon Dioxide (22-30) mmol/L BUN (7-17) mg/dL Creatinine (0.52-1.04) mg/dL Glucose (74-99) mg/dL POC Glucose (mg/dL) 220 H 254 H (75-99) mg/dL Phosphorus (2.5-4.5) mg/dL Alkaline Phosphatase (38-126) U/L Urine Appearance (Clear) Urine Protein (Negative) Urine Glucose (UA) (Negative) Urine Ketones (Negative) Urine Blood (Negative) Ur Leukocyte Esterase (Negative) Urine WBC (0-5) /hpf Urine Bacteria (None) /hpf Urine Mucus (None) /hpf Microbiology - Last 24 Hours (Table) 09/23/18 00:00 Urine Culture - Preliminary Urine,Catheterized Assessment and Plan (1) Acute ischemic left MCA stroke Current Visit: Yes Status: Acute Code(s): I63.512 - CEREB INFRC D/T UNSP OCCLS OR STENOS OF LEFT MID CEREB ART SNOMED Code(s): 728443076 (2) Diabetic ketoacidosis Current Visit: Yes Status: Acute Code(s): E13.10 - OTH DIABETES MELLITUS WITH KETOACIDOSIS WITHOUT COMA SNOMED Code(s): 803674863 (3) Dehydration Current Visit: Yes Status: Acute Code(s): E86.0 - DEHYDRATION SNOMED Code( s): 90250849 (4) History of CVA (cerebrovascular accident) Current Visit: Yes Status: Acute Code(s): Z86.73 - PRSNL HX OF TIA (TIA), AND CEREB INFRC W/O RESID DEFICITS SNOMED Code(s): 759597084 (5) Hyperosmolarity due to secondary diabetes mellitus Current Visit: Yes Status: Acute Code(s): E13.00 - OTH DIAB W HYPROSM W/O NONKET HYPRGLY-HYPROS COMA (NKHHC) SNOMED Code(s): 27645914 Plan: This patient is a 63-year-old right-handed white female admitted to [facility] for evaluation of increasing lethargy and confusion at home. Patient was recently discharged from [facility] after suffering a stroke about 2 weeks ago. She was taking Plavix and aspirin upon discharge from that hospital. Patient apparently today was noted to have increased confusion and disorientation which is felt to be much worse than her last presentation at the hospital. EMS was called to the home and she was transported to the emergency room at [facility] for further evaluation. The patient was evaluated in the emergency room by Dr. Arroyo. She was sent for a computed tomography scan of the brain which revealed evidence of an acute to subacute left thalamic stroke. Patient was subsequent admitted to the hospital for further management. She was being treated for diabetic ketoacidosis and was started on insulin drip. Her blood sugars have steadily come down in the ICU. Her neurological examination is consistent with a diffuse metabolic encephalopathy. We have recommended the patient undergo an MRI of the brain tomorrow for further characterization and evaluation of recent left thalamic stroke. MRI of the brain was completed today on 09/23/2018. Results are as noted above. MRI reveals a 1.9 cm lesion in the left thalamus which does not represent acute ischemia. This may represent previous bleeding. A postcontrast MRI is recommended by radiology. We will arrange for a MRI of the brain with gadolinium. At this time we are recommending to place her Plavix on hold at this time pending her repeat MRI study to be done. This patient's case was discussed at length today with Dr. Keenan. He has been updated on her MRI findings and we will place her Plavix on hold at this time. Would continue aggressive treatment of her diabetic ketoacidosis condition with close follow-up. Her overall prognosis at this time remains very guarded. We will continue close neurological follow-up at this patient in the intensive care unit.
[2018-09-23] MEDS: ATORVASTATIN 40 MG TAB PO SCH (22:00)
[2018-09-23] MEDS: INSULIN DETEMIR 100 UNIT/ML 10 ML VIAL SQ SCH (23:59)
[2018-09-24 02:00] LABS: Glucose,Whole Blood 210 mg/dL (75-99)
[2018-09-24] MEDS: INSULIN ASPART 100 UNIT/ML 1 ML 10 ML VIAL SQ SCH ×8 (03:05→22:41)
[2018-09-24 05:20] LABS: Basophils % (A) 0 %; Eosinophils % (A) 0 %; HCT 34.8 % (34.0-46.0); HGB 11.2 gm/dL (11.4-16.0); Lymphocytes # (A) 1.2 k/uL (1.0-4.8); Lymphocytes % (A) 14 %; MCH 29.7 pg (25.0-35.0); MCHC 32.1 g/dL (31.0-37.0); MCV 92.5 fL (80.0-100.0); Mean Platelet Volume 7.4; Monocytes # (A) 0.4 k/uL (0-1.0); Monocytes % (A) 5 %; Neutrophils # (A) 6.6 k/uL (1.3-7.7); Neutrophils % (A) 80 %; Platelet Count 184 k/uL (150-450); RBC 3.76 m/uL (3.80-5.40); RDW 13.3 % (11.5-15.5); WBC 8.3 k/uL (3.8-10.6)
[2018-09-24 05:25] LABS: ALT 25 U/L (9-52); AST 36 U/L (14-36); Albumin 3.5 g/dL (3.5-5.0); Alkaline Phosphatase <20 U/L (38-126); Anion Gap 7 mmol/L; Blood Urea Nitrogen 16 mg/dL (7-17); Calcium 9.4 mg/dL (8.4-10.2); Carbon Dioxide 17 mmol/L (22-30); Chloride 118 mmol/L (98-107); Glucose 141 mg/dL (74-99); Phosphorus 1.8 mg/dL (2.5-4.5); Sodium 142 mmol/L (137-145); Total Bilirubin 0.6 mg/dL (0.2-1.3); Total Protein 6.7 g/dL (6.3-8.2)
[2018-09-24 05:39] LABS: Potassium 4.3 mmol/L (3.5-5.1)
[2018-09-24 07:06] LABS: Glucose,Whole Blood 116 mg/dL (75-99)
[2018-09-24] MEDS: LEVOTHYROXINE 75 MCG TAB PO SCH (07:12)
[2018-09-24] MEDS: PANTOPRAZOLE 40 MG TABLET PO SCH (08:08)
[2018-09-24] MEDS: METOPROLOL TARTRATE 25 MG TAB PO SCH ×2 (08:08→21:31)
[2018-09-24] MEDS: D5-0.45% NACL WITH KCL 20MEQ/L 1,000 ML IV SCH ×2 (08:12→21:36)
[2018-09-24] MEDS: HEPARIN SODIUM,PORCINE 5,000 UNIT/ML 1 ML VIAL SQ SCH ×2 (08:28→21:31)
--- NOTE | 2018-09-24 09:05 | PN ---
PROGRESS NOTE Mrs. Mauricio is a 63-year-old female who presented with change in mental status and DKA. She had a recent cerebrovascular accident. I reviewed her records in the office and she had a prior history of paroxysmal atrial fibrillation. She is hemodynamically stable. She is more awake and alert today. She continues to be in sinus mechanism. She had no episode of atrial fibrillation. She had no episode of bradycardia or tachycardia. Hemodynamically, she is stable. She continues to be on Lipitor 40 mg daily, Plavix, heparin subcu, and metoprolol tartrate 25 mg twice a day. PHYSICAL EXAMINATION: Blood pressure 115/60 with a heart rate in the 80s. LUNGS: Clear. HEART: Regular rate and rhythm. S1, S2. No S3. No rub appreciated. ABDOMEN: Soft, nontender. EXTREMITIES: No significant edema. She underwent a brain MRI yesterday that revealed 1.9 cm lesion in left thalamus. Does not represent acute ischemic event. This may be related to a previous bleeding. IMPRESSION: 1. Evidence of cerebrovascular accident 2 weeks ago. 2. Diabetic ketoacidosis, resolved. 3. Paroxysmal atrial fibrillation. 4. Questionable compliance in the past. RECOMMENDATION: From the cardiac standpoint, the patient qualifies for anticoagulation, but will check with Dr. Oropeza to see if we can initiate anticoagulation because of the questionable bleeding on the MRI. Because of the history of atrial fibrillation and recent stroke, I believe that anticoagulation is indicated. I have discussed those findings with the patient. MMODL / IJN: [id number] /
--- NOTE | 2018-09-24 11:00 | P.PN ---
Subjective Progress Note Date: 09/24/18 Principal diagnosis: Acute diabetic ketoacidosis, subacute CVA. This is a 63-year-old female with known history of type 1 diabetes, on insulin pump, patient was recently admitted to [facility] in [place], and supposedly she had a CVA. Patient was eventually discharged home on Plavix and aspirin. Patient is also known to have history of chronic atrial fibrillation, and history of Karis's disease. She presented last night to the ER with increased confusion, lethargy, and significantly elevated blood sugar. Supposedly the patient is on insulin pump, but there is definite question of compliance considering the change in her mental status and possible recurrent CVA. While in the ER, her sugar was found to be 813, positive ketones noted, and there is anion gap metabolic acidosis noted. Her lactic acid was 6.8. BUN was 34 creatinine 1.9. At any rate patient had a CT of the brain, and it showed acute/subacute left thalamic lacunar injury extending into the posterior limb of the internal capsule. No hemorrhage was noted. He was seen by neurology, and MRI was requested. It showed a 1.9 cm lesion in the left thalamus which does not represent acute ischemia felt that this may relate to previous bleeding and the radiologist recommended a postcontrast MRI. Patient remains presently on the DKA protocol, patient is encephalopathic, the only recommendation from the neurologist is to continue Plavix and aspirin for secondary stroke prevention. As far as her DKA is concerned, the anion gap is resolved, and her blood sugars are controlled, patient is now on insulin subcu as per protocol. However patient may have to stay in the ICU because of her mental status change, and possibly evolving stroke. Reevaluated today on 09/24/2018, patient remains in the ICU. Patient is feeling a bit better compared to yesterday, less confusion noted. And apparently she was taken off Plavix as per the neurology recommendation. This is after reviewing the MRI. Labs look excellent today, including normal CBC. Relatively normal electrolytes, anion gap is only 7. Renal profile is normal. Blood sugar is 141. 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 Continues to have clinical presentation of diffuse metabolic encephalopathy but again improved compared to how she was yesterday. Patient is clearly not back to normal or baseline. Hemodynamically, the patient is stable, and I believe she could be transferred out of the ICU to a monitor bed on selective. All her labs were reviewed, notes from different consultants were all reviewed. Objective - Vital Signs Vital signs: Vital Signs Temp 97.5 F L 09/24/18 08:00 Pulse 77 09/24/18 09:00 Resp 10 L 09/24/18 09:00 BP 115/65 09/24/18 09:00 Pulse Ox 97 09/24/18 09:00 Intake & Output 09/23/18 09/24/18 09/24/18 19:59 06:59 18:59 Intake Total 100 Output Total 100 Balance 0 Weight 83.7 kg Intake: IV 100 D5-0.45% NaCl with KCl 100 20Meq/l 1,000 ml @ 50 mls /hr IV .Q20H INDIRA Rx#: [id number] Sodium Glycerophosphate 10 mmol In Sodium Chloride 0.9% 250 ml @ 31 .25 mls/hr IV ONCE ONE Rx #:[id number] Output: Urine 100 Other: Voiding Method Indwelling Catheter - Exam Physical Exam: Revealed a 63-year-old female, less confused today compared to yesterday, but overall she remains confused. She knows where she is, does not know the name of the president or the year. However according to the nurse she knew the year earlier. And her mental status seems to wax and wane intermittently. Head: Atraumatic, normocephalic. HEENT:[Neck is supple.] [No neck masses.] [No thyromegaly.] [No JVD.] PERRLA, EOMI, no icterus. Chest: [Clear throughout, no crackles, no rhonchi, no wheezes.] Cardiac Exam: [Normal S1 and S2, no S3 gallop, no murmur.] Abdomen: [Soft, nontender, no megaly, no rebound, no guarding, normal bowel sounds.] Extremities: [No clubbing, no edema, no cyanosis.] Neurological Exam: Patient is confused, has no idea where she really is, minimal right-sided weakness is noted, strength on the right side is 3/5, however strength on the left side is 4/5. Psychiatric: Confused, blunt affect, poor mental status examination, poor insight. Musculoskeletal: As noted above, clearly has right-sided weakness. Skin: No rashe - Labs CBC & Chem 7: 09/24/18 04:29 09/24/18 04:29 Labs: Abnormal Lab Results - Last 24 Hours (Table) 09/23/18 09/23/18 09/23/18 Range/Units 13:25 16:07 20:32 RBC (3.80-5.40) m/uL Hgb (11.4-16.0) gm/dL Chloride (98-107) mmol/L Carbon Dioxide (22-30) mmol/L Glucose (74-99) mg/dL POC Glucose (mg/dL) 124 H 220 H 254 H (75-99) mg/dL Phosphorus (2.5-4.5) mg/dL Alkaline Phosphatase (38-126) U/L 09/24/18 09/24/18 09/24/18 Range/Units 01:37 EST 04:29 04:29 RBC 3.76 L (3.80-5.40) m/uL Hgb 11.2 L (11.4-16.0) gm/dL Chloride 118 H (98-107) mmol/L Carbon Dioxide 17 L (22-30) mmol/L Glucose 141 H (74-99) mg/dL POC Glucose (mg/dL) 210 H (75-99) mg/dL Phosphorus 1.8 L (2.5-4.5) mg/dL Alkaline Phosphatase <20 L (38-126) U/L 09/24/18 Range/Units 07:04 RBC (3.80-5.40) m/uL Hgb (11.4-16.0) gm/dL Chloride (98-107) mmol/L Carbon Dioxide (22-30) mmol/L Glucose (74-99) mg/dL POC Glucose (mg/dL) 116 H (75-99) mg/dL Phosphorus (2.5-4.5) mg/dL Alkaline Phosphatase (38-126) U/L Microbiology - Last 24 Hours (Table) 09/23/18 00:00 Urine Culture - Preliminary Urine,Catheterized Assessment and Plan Assessment: Impression: 1 acute diabetic ketoacidosis, however the patient is doing well, continue protocol for treatment of DKA. 2 subacute CVA, possible evolving or recurrent CVA involving the left thalamic area as noted on the MRI. 3 acute kidney injury related to diabetic ketoacidosis and dehydration. 4 history of paroxysmal atrial fibrillation, 5 history of Karis's disease 6 acute encephalopathy could be metabolic in nature or could be related to her underlying CVA. Recommendation: Continue present treatment plan, continue insulin as per protocol, it was recommended by neurology to hold Plavix and aspirin, patient could be transferred out of the ICU to a monitor bed on selective today. We'll continue to follow. Time with Patient: Less than 30
[2018-09-24 12:00] LABS: Glucose,Whole Blood 107 mg/dL (75-99)
[2018-09-24 17:18] LABS: Glucose,Whole Blood 279 mg/dL (75-99)
[2018-09-24] MEDS: LEVOFLOXACIN 250MG-D5W PMX 250 MG in DEXTROSE/WATER 1 50ML.BAG IVPB SCH (18:00)
--- NOTE | 2018-09-24 18:40 | P.PN ---
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 Patient was brought into the emergency room due to increasing confusion and lethargy with elevated blood sugar. Daughter called EMS and EMS reported a blood sugar of 563. Patient was given IV fluids and Route. According to the patient's daughter patient had a stroke about 2 weeks ago. She was admitted to [facility] at that time. She was there for about a week. Her daughter patient had about a 90% recovery. At home patient was taking care of her own insulin pump. On over the last 2 days the daughter noted that her mom was having difficulty managing her insulin pump and medications. The insulin pump battery went low and also it was time to replace insulin. Patient's daughter was unaware of how to use the pump. She tried to check her mother's blood sugar had difficulty with this. She felt that the sugars maybe be low and started to give her PE her mom orange juice. She reports that her mom was very confused and lethargic. Cannot even sit up in a chair. She had loss of bladder control. In the ER she was found to have a glucose of 813 acetone was positive. She has been started on insulin drip. Discussed with ER physician insulin pump will be removed. White count 15.3 sodium 136 potassium 6.7 chloride 97 CO2 less than 5 and anion gap unable calculated BUN 34 creatinine 1.9 for lactic acid 6.8. Patient is receiving IV fluid boluses. She is currently on normal saline at 100 mL an hour. And also on insulin drip. Patient will be admitted to the ICU. Dr. Santiago will be consulted for ICU management. Computed tomography scan of the brain shows an acute subacute traumatic lacunar injury extending into the posterior limb. Neurology will be consulted. Patient is lethargic. She is arousable. She is alert and orientated to name and place. She did not know the year. She did not know her daughter's name. She denies any chest pain or shortness of breath. Denies any nausea or vomiting. Denies any fevers chills or sweats. Denies any bowel movement changes or urinary symptoms. 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 Patient also has had decrease in appetite has not been eating and drinking well at home. On 09/23/2018 patient is alert and oriented 3 in no apparent distress she denies any pain or discomfort at this time there is no fever or chills no headache or dizziness no chest pain no shortness of breath no cough no nausea or vomiting no abdominal pain no diarrhea and no urinary symptoms Buck catheter is in. Labs are improving with creatinine down to 1.23 lactic acid down to 1.4 white blood count down to 12 point On 09/24/2018 patient was seen and examined in the ICU today, she is more alert and oriented, she denies any complaints at this time, there is no fever or chills no headache or dizziness no chest pain no shortness of breath or cough no nausea or vomiting no abdominal pain no diarrhea and no urinary symptoms Objective - Vital Signs Vital signs: Vital Signs Temp 97.5 F L 09/24/18 08:00 Pulse 80 09/24/18 16:00 Resp 10 L 09/24/18 16:00 BP 117/70 09/24/18 16:00 Pulse Ox 96 09/24/18 16:00 Intake & Output 09/23/18 09/24/18 09/24/18 19:59 06:59 18:59 Intake Total 300 Output Total 300 Balance 0 Weight 83.7 kg Intake: IV 300 D5-0.45% NaCl with KCl 300 20Meq/l 1,000 ml @ 50 mls /hr IV .Q20H [facility] Rx#: [id number] Sodium Glycerophosphate 10 mmol In Sodium Chloride 0.9% 250 ml @ 31 .25 mls/hr IV ONCE ONE Rx #:[id number] Output: Urine 300 Other: Voiding Method Toilet # Voids 2 - Exam Head normocephalic and atraumatic Neck supple no JVD no goiter Lungs clear to auscultation bilaterally no wheezing or crackles. kussmaul respirations Heart regular rate and rhythm S1-S2, no rub or gallop Abdomen is soft nontender nondistended positive bowel sounds no hepatosplenomegaly Extremities no edema no cyanosis or clubbing pulses palpable bilaterally Neuro alert and orientated to 2. She knew her name and location. No slurred speech or facial droop. Patient is lethargic. Hand presser machine equal bilaterally lower extremity strength equal bilaterally - Labs CBC & Chem 7: 09/24/18 04:29 09/24/18 04:29 Labs: Abnormal Lab Results - Last 24 Hours (Table) 09/23/18 09/24/18 09/24/18 Range/Units 20:32 01:37 EST 04:29 RBC 3.76 L (3.80-5.40) m/uL Hgb 11.2 L (11.4-16.0) gm/dL Chloride (98-107) mmol/L Carbon Dioxide (22-30) mmol/L Glucose (74-99) mg/dL POC Glucose (mg/dL) 254 H 210 H (75-99) mg/dL Phosphorus (2.5-4.5) mg/dL Alkaline Phosphatase (38-126) U/L 09/24/18 09/24/18 09/24/18 Range/Units 04:29 07:04 11:57 RBC (3.80-5.40) m/uL Hgb (11.4-16.0) gm/dL Chloride 118 H (98-107) mmol/L Carbon Dioxide 17 L (22-30) mmol/L Glucose 141 H (74-99) mg/dL POC Glucose (mg/dL) 116 H 107 H (75-99) mg/dL Phosphorus 1.8 L (2.5-4.5) mg/dL Alkaline Phosphatase <20 L (38-126) U/L 09/24/18 Range/Units 17:17 RBC (3.80-5.40) m/uL Hgb (11.4-16.0) gm/dL Chloride (98-107) mmol/L Carbon Dioxide (22-30) mmol/L Glucose (74-99) mg/dL POC Glucose (mg/dL) 279 H (75-99) mg/dL Phosphorus (2.5-4.5) mg/dL Alkaline Phosphatase (38-126) U/L Microbiology - Last 24 Hours (Table) 09/23/18 00:00 Urine Culture - Final Urine,Catheterized Assessment and Plan Plan: 1. Uncontrolled blood sugars with diabetic ketoacidosis secondary to insulin pump being used incorrectly and possibly a low battery. Blood sugar 813 acetone positive CO2 less than 5. Patient placed on insulin drip in the ER. She'll be admitted to the ICU. Dr. Vega will be consulted for ICU management. Continue with IV fluids. Discontinue insulin pump. Check urinalysis 2. Acute kidney injury: Likely related to poor oral intake. Patient be given IV fluids. Repeat labs in a.m. 3. Hyperkalemia: potassium 6.7 likely related to acute kidney injury and hyperglycemia. Patient has been given insulin as well as will give a dose of Kayexalate 30 g by mouth 1 4. Elevated lactic acid level of 6.8. Patient being given IV fluids. Repeat lactic acid level 5. Leukocytosis: Possibly related to hyperglycemia. Repeat CBC in a.m. chest x -ray negative. Await urinalysis. 6. Recent stroke 2 weeks ago treated at [facility]. Computed tomography scan of the brain showing acute to subacute left thalamic lacunar injury extending into the posterior limb of the internal capsule. No intracranial hemorrhage or midline shift. Consult neurology. Neurology consult recommendation Plavix was discontinued 7. History of Karis's disease 8. History of paroxysmal atrial fibrillation. Patient had been on aspirin 81 mg by mouth daily prior to her stroke. Patient and daughter report that she had not been on any anticoagulation. Check EKG and continue with telemetry monitoring 7. Acute metabolic encephalopathy with Altered mental status and lethargy secondary to elevated blood sugars present on admission 8. Hyperlipidemia continue statin
[2018-09-24 20:49] LABS: Glucose,Whole Blood 153 mg/dL (75-99)
[2018-09-24] MEDS: INSULIN DETEMIR 100 UNIT/ML 10 ML VIAL SQ SCH (21:31)
[2018-09-24] MEDS: ATORVASTATIN 40 MG TAB PO SCH (21:31)
--- NOTE | 2018-09-25 01:03 | P.PN ---
Subjective Progress Note Date: 09/24/18 This patient is a 63-year-old female with a history of type 1 diabetes mellitus on insulin pump. Patient suffered a recent stroke about 2 weeks ago and was admitted to [facility] where she was treated. We did request records yesterday but these are still pending from this hospital. Patient underwent a computed tomography scan of the brain yesterday which revealed evidence of a left thalamic lesion. She was recommended to have MRI of the brain today which was completed and read by Dr. Noguera. The MRI reveals evidence of a 1.9 cm lesion in the left thalamus which does not represent acute ischemia. This may be related to previous bleeding. A postcontrast MR was suggested. We have recommended the MRI of the brain to be done with contrast tomorrow morning. Anticoagulation has been placed on hold until this MRI has been completed. We did obtain medical records for [facility] where the patient was transferred following her initial stroke findings on 09/09. Patient was given TPA and transferred to [facility] for neuro interventional evaluation and treatment. We did obtain the medical records from [facility] today. Patient underwent an MRI of the brain on 09/14/2018 results of which indicated a 12 mm focus of acute/subacute ischemia in the left lyn. Patient also had a computed tomography scan of the brain performed on 09/10/2018 after she was transferred to [facility] and this CAT scan revealed focal ischemia in the left thalamus. There appears to be discrepancy on the MRI studies between [facility] and MRI of the brain that was done here at [facility] on 09/23/2018 and revealed a 1.9 cm lesion in the left thalamus which does not represent acute ischemia. Radiologist stated this may be related to previous bleeding. Based on the 2 discrepancies on both MRI studies of the brain we have recommended MRI of the brain to be done with gadolinium tomorrow morning and the films are to be reviewed personally by myself and the radiologist so that comparison scan be made. This patient likely will require long-term anticoagulation however a decision to proceed will be given only after her MRI studies have all been reviewed and there is no evidence to suggest underlying intracranial hemorrhage either past or present. Case will be discussed tomorrow with cardiology in regards to anticoagulation. The patient yesterday was showing clear signs of metabolic encephalopathy. She had evidence of uncontrolled hyperglycemia. Her blood sugars were size 813 and her acetone was positive. She was started on insulin drip yesterday. Today the patient is more alert and oriented. She does not appear to be in any distress. She denies any headache or fever. At this time given her MRI findings we have recommended that the Plavix be placed on hold until the MR of the brain with contrast study is done. We are still awaiting all of her records to be sent for [facility] so that exact findings at that time could be reviewed. We did discuss the MRI findings today with Dr. Keenan and at this point we have recommended to place her Plavix on hold until further information is obtained. Patient was seen by cardiology today and Dr. Guzman is recommending echocardiogram Doppler to be done. Patient has a history of paroxysmal atrial fibrillation which was found on a documentation from 2015. Patient was seen today by cardiology and Dr. Guzman is recommending given her history of paroxysmal atrial fibrillation and recent stroke that anticoagulation is indicated. Once again this will be discussed with cardiology tomorrow after her MRI films have been reviewed thoroughly. The patient continues to show slight improvement today in the ICU. We recommended she remain in the ICU one further day until her MRI study has been completed. Her overall prognosis at this time remains guarded. Patient is remaining on a DKA protocol and her encephalopathy is showing improvement. We will continue to follow her progress closely in the intensive care unit. Objective - Vital Signs Vital signs: Vital Signs Temp 97.5 F L 09/24/18 08:00 Pulse 76 09/24/18 22:00 Resp 16 09/24/18 22:00 BP 128/72 09/24/18 22:00 Pulse Ox 96 09/24/18 21:00 Intake & Output 09/24/18 09/24/18 09/25/18 06:59 18:59 06:59 Intake Total 300 50 Output Total 300 200 Balance 0 -150 Weight 83.7 kg Intake: IV 300 50 D5-0.45% NaCl with KCl 300 50 20Meq/l 1,000 ml @ 50 mls /hr IV .Q20H [facility] Rx#: [id number] Output: Urine 300 200 Other: Voiding Method Toilet Toilet # Voids 2 2 - Exam Physical examination: PHYSICAL EXAMINATION: Patient is resting comfortably in bed. VITAL SIGNS: Blood pressure is [128/72]. Heart rate is [76]. Respiration is [16] . Temperature is [97.5]. HEENT: Head is atraumatic, neck is supple, there were no carotid bruits. CHEST: Lungs are clear to auscultation and percussion. CARDIAC: S1, S2 normal rate and rhythm. There is no murmur. ABDOMEN: Soft and nontender. Bowel sounds are present. EXTREMITIES: There is no pedal edema. Peripheral pulses are present. Neurological examination: Patient's neurological examination shows improvement in her mental status as compared to yesterday. She denies any headache or focal weakness at this time. Her memory and intellectual functions showing slight improvement. - Labs CBC & Chem 7: 09/24/18 04:29 09/24/18 04:29 Labs: Abnormal Lab Results - Last 24 Hours (Table) 09/24/18 09/24/18 09/24/18 Range/Units 01:37 EST 04:29 04:29 RBC 3.76 L (3.80-5.40) m/uL Hgb 11.2 L (11.4-16.0) gm/dL Chloride 118 H (98-107) mmol/L Carbon Dioxide 17 L (22-30) mmol/L Glucose 141 H (74-99) mg/dL POC Glucose (mg/dL) 210 H (75-99) mg/dL Phosphorus 1.8 L (2.5-4.5) mg/dL Alkaline Phosphatase <20 L (38-126) U/L 09/24/18 09/24/18 09/24/18 Range/Units 07:04 11:57 17:17 RBC (3.80-5.40) m/uL Hgb (11.4-16.0) gm/dL Chloride (98-107) mmol/L Carbon Dioxide (22-30) mmol/L Glucose (74-99) mg/dL POC Glucose (mg/dL) 116 H 107 H 279 H (75-99) mg/dL Phosphorus (2.5-4.5) mg/dL Alkaline Phosphatase (38-126) U/L 09/24/18 Range/Units 20:48 RBC (3.80-5.40) m/uL Hgb (11.4-16.0) gm/dL Chloride (98-107) mmol/L Carbon Dioxide (22-30) mmol/L Glucose (74-99) mg/dL POC Glucose (mg/dL) 153 H (75-99) mg/dL Phosphorus (2.5-4.5) mg/dL Alkaline Phosphatase (38-126) U/L Microbiology - Last 24 Hours (Table) 09/23/18 00:00 Urine Culture - Final Urine,Catheterized Assessment and Plan (1) Acute ischemic left MCA stroke Current Visit: Yes Status: Acute Code(s): I63.512 - CEREB INFRC D/T UNSP OCCLS OR STENOS OF LEFT MID CEREB ART SNOMED Code(s): 351220017 (2) Diabetic ketoacidosis Current Visit: Yes Status: Acute Code(s): E13.10 - OTH DIABETES MELLITUS WITH KETOACIDOSIS WITHOUT COMA SNOMED Code(s): 666462380 (3) Dehydration Current Visit: Yes Status: Acute Code(s): E86.0 - DEHYDRATION SNOMED Code( s): 66724611 (4) History of CVA (cerebrovascular accident) Current Visit: Yes Status: Acute Code(s): Z86.73 - PRSNL HX OF TIA (TIA), AND CEREB INFRC W/O RESID DEFICITS SNOMED Code(s): 086129536 (5) Hyperosmolarity due to secondary diabetes mellitus Current Visit: Yes Status: Acute Code(s): E13.00 - OTH DIAB W HYPROSM W/O NONKET HYPRGLY-HYPROS COMA (NKHHC) SNOMED Code(s): 45511093 Plan: This patient is a 63-year-old right-handed white female admitted to [facility] for evaluation of increasing lethargy and confusion at home. Patient was recently discharged from [facility] after suffering a stroke about 2 weeks ago. She was taking Plavix and aspirin upon discharge from that hospital. Patient apparently today was noted to have increased confusion and disorientation which is felt to be much worse than her last presentation at the hospital. EMS was called to the home and she was transported to the emergency room at [facility] for further evaluation. The patient was evaluated in the emergency room by Dr. Arroyo. She was sent for a computed tomography scan of the brain which revealed evidence of an acute to subacute left thalamic stroke. Patient was subsequent admitted to the hospital for further management. She was being treated for diabetic ketoacidosis and was started on insulin drip. Her blood sugars have steadily come down in the ICU. Her neurological examination is consistent with a diffuse metabolic encephalopathy. We have recommended the patient undergo an MRI of the brain tomorrow for further characterization and evaluation of recent left thalamic stroke. MRI of the brain was completed today on 09/23/2018. Results are as noted above. MRI reveals a 1.9 cm lesion in the left thalamus which does not represent acute ischemia. This may represent previous bleeding. A postcontrast MRI is recommended by radiology. We will arrange for a MRI of the brain with gadolinium. We have reviewed the MRI report that was done at [facility] for this patient on 09/14/2018. Results are as noted above. We will review her MRI results in detail with radiology tomorrow after her MRI study of the brain with gadolinium is completed. If there is no evidence of remote or acute hemorrhage the patient may be considered for long- term anticoagulation. This will be discussed with cardiology tomorrow after her MRI films are reviewed. This patient's overall prognosis at this time remains very guarded. At this time we are recommending to place her Plavix on hold at this time pending her repeat MRI study to be done. This patient's case was discussed at length today with Dr. Keenan. He has been updated on her MRI findings and we will place her Plavix on hold at this time. Would continue aggressive treatment of her diabetic ketoacidosis condition with close follow- up. We will continue close neurological follow-up at this patient in the intensive care unit. Once again this case will be reviewed with cardiology tomorrow after her MRI study of the brain is completed. Her overall prognosis once again remains very guarded. We will continue close neurological follow-up with this patient in the intensive care unit.
[2018-09-25 04:11] LABS: Glucose,Whole Blood 141 mg/dL (75-99)
[2018-09-25] MEDS: INSULIN ASPART 100 UNIT/ML 1 ML 10 ML VIAL SQ SCH ×8 (04:22→21:30)
[2018-09-25 05:41] LABS: ALT 26 U/L (9-52); AST 27 U/L (14-36); Albumin 3.4 g/dL (3.5-5.0); Alkaline Phosphatase 26 U/L (38-126); Anion Gap 7 mmol/L; Blood Urea Nitrogen 8 mg/dL (7-17); Calcium 9.1 mg/dL (8.4-10.2); Carbon Dioxide 24 mmol/L (22-30); Chloride 108 mmol/L (98-107); Glucose 143 mg/dL (74-99); Potassium 3.4 mmol/L (3.5-5.1); Sodium 139 mmol/L (137-145); Total Bilirubin 0.6 mg/dL (0.2-1.3); Total Protein 6.3 g/dL (6.3-8.2)
[2018-09-25 05:57] LABS: Basophils % (A) 0 %; Eosinophils % (A) 1 %; HCT 34.5 % (34.0-46.0); HGB 11.9 gm/dL (11.4-16.0); Lymphocytes # (A) 1.4 k/uL (1.0-4.8); Lymphocytes % (A) 33 %; MCH 30.1 pg (25.0-35.0); MCHC 34.5 g/dL (31.0-37.0); Mean Platelet Volume 7.7; Monocytes # (A) 0.3 k/uL (0-1.0); Monocytes % (A) 6 %; Neutrophils # (A) 2.6 k/uL (1.3-7.7); Neutrophils % (A) 59 %; Platelet Count 181 k/uL (150-450); RBC 3.94 m/uL (3.80-5.40); RDW 13.2 % (11.5-15.5); WBC 4.4 k/uL (3.8-10.6)
[2018-09-25 06:03] LABS: MCV 87.5 fL (80.0-100.0)
[2018-09-25 07:00] LABS: Glucose,Whole Blood 145 mg/dL (75-99)
[2018-09-25] MEDS: PANTOPRAZOLE 40 MG TABLET PO SCH (07:37)
[2018-09-25] MEDS: LEVOTHYROXINE 75 MCG TAB PO SCH (07:37)
[2018-09-25] MEDS ORDERED: Potassium Replacement Protocol 1 EACH MISC MISCELLANE PRN (07:51)
--- NOTE | 2018-09-25 08:18 | PN ---
PROGRESS NOTE Mrs. Mauricio is a 63-year-old female who presented with change in mental status and was in diabetic ketoacidosis. She recently had a cerebrovascular accident. Reviewing the records in 2016 she had episode of paroxysmal atrial fibrillation. She is awake and alert this morning, feeling well. She is denying any chest pain. There was a possible bleeding on her MRI and she is off her Plavix at this time. Hemodynamically, she is stable. She has no evidence of atrial fibrillation since her admission. She continues to be on Lipitor 40 mg daily, subcu heparin, metoprolol tartrate 25 mg twice a day. PHYSICAL EXAMINATION: Blood pressure running in the one teens to 120s with the heart rate in the 80s. LUNGS: Clear. HEART: Regular rate and rhythm. S1, S2. No S3. No rub. ABDOMEN: Soft, nontender. EXTREMITIES: No edema. LAB DATA: Lab data revealed BUN and creatinine of 8 and 0.58, potassium 3.4. Hemoglobin 11.9. IMPRESSION: 1. Diabetic ketoacidosis, corrected. 2. History of diabetes mellitus, on an insulin pump. 3. Recent cerebrovascular accident with subacute cerebrovascular accident, questionable bleeding. 4. Remote history of paroxysmal atrial fibrillation. 5. Change in mental status, resolved. RECOMMENDATION: We will await the input of Dr. Oropeza regarding the possibility of initiating anticoagulation because of the history of paroxysmal fibrillation in the past and the recent cerebrovascular accident. Otherwise, we will continue present medical regimen. MMDONTEL / FAVIANN: [id number] /
[2018-09-25 08:37] LABS: Glucose,Whole Blood 196 mg/dL (75-99)
[2018-09-25] MEDS: METOPROLOL TARTRATE 25 MG TAB PO SCH ×2 (08:40→21:38)
[2018-09-25] MEDS: POTASSIUM CHLORIDE ER 20 MEQ TAB.ER PO SCH ×2 (08:40→11:46)
[2018-09-25] MEDS: HEPARIN SODIUM,PORCINE 5,000 UNIT/ML 1 ML VIAL SQ SCH (08:40)
--- NOTE | 2018-09-25 08:43 | P.PN ---
Subjective Progress Note Date: 09/25/18 Principal diagnosis: Acute diabetic ketoacidosis, subacute CVA This is a 63-year-old female with known history of type 1 diabetes, on insulin pump, patient was recently admitted to [facility] in [place], and supposedly she had a CVA. Patient was eventually discharged home on Plavix and aspirin. Patient is also known to have history of chronic atrial fibrillation, and history of Karis's disease. She presented last night to the ER with increased confusion, lethargy, and significantly elevated blood sugar. Supposedly the patient is on insulin pump, but there is definite question of compliance considering the change in her mental status and possible recurrent CVA. While in the ER, her sugar was found to be 813, positive ketones noted, and there is anion gap metabolic acidosis noted. Her lactic acid was 6.8. BUN was 34 creatinine 1.9. At any rate patient had a CT of the brain, and it showed acute/subacute left thalamic lacunar injury extending into the posterior limb of the internal capsule. No hemorrhage was noted. He was seen by neurology, and MRI was requested. It showed a 1.9 cm lesion in the left thalamus which does not represent acute ischemia felt that this may relate to previous bleeding and the radiologist recommended a postcontrast MRI. Patient remains presently on the DKA protocol, patient is encephalopathic, the only recommendation from the neurologist is to continue Plavix and aspirin for secondary stroke prevention. As far as her DKA is concerned, the anion gap is resolved, and her blood sugars are controlled, patient is now on insulin subcu as per protocol. However patient may have to stay in the ICU because of her mental status change, and possibly evolving stroke. Reevaluated today on 09/24/2018, patient remains in the ICU. Patient is feeling a bit better compared to yesterday, less confusion noted. And apparently she was taken off Plavix as per the neurology recommendation. This is after reviewing the MRI. Labs look excellent today, including normal CBC. Relatively normal electrolytes, anion gap is only 7. Renal profile is normal. Blood sugar is 141. 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 Continues to have clinical presentation of diffuse metabolic encephalopathy but again improved compared to how she was yesterday. Patient is clearly not back to normal or baseline. Hemodynamically, the patient is stable, and I believe she could be transferred out of the ICU to a monitor bed on selective. All her labs were reviewed, notes from different consultants were all reviewed. On 09/25/2018 patient seen in follow-up in the intensive care unit, she is awake and alert, oriented 3. Denies any chest pain, denies any shortness of breath, currently on room air, pulse ox is 96%, she is afebrile, hemodynamically stable. Venous IV fluids is D5.45 with 20 of KCl at a rate of 50 ML per hour, insulin drip is off, patient has been transitioned to Levemir and NovoLog sliding scale with the mealtime coverage. Today's labs have been reviewed, CBC is within normal limits, no leukocytosis, chemistry panel reveals sodium of 139, potassium is 3.4, chloride is 108, BUN of 8, creatinine 0.58, her anion gap has closed. No new chest x-rays today, patient is scheduled for repeat MRI of the brain with contrast today, anticoagulation has been placed on hold until the MRI has been completed. She is status post TPA for left MCA stroke 2 weeks ago at the [facility]. No confusion today, but there is some long-term memory impairment noted. At least sinus rhythm on the monitor, patient does have history of paroxysmal atrial fibrillation. Neurological standpoint she is improving, no focal weakness, denies any headaches. Objective - Vital Signs Vital signs: Vital Signs Temp 98 F 09/25/18 04:00 Pulse 81 09/25/18 04:00 Resp 14 09/25/18 04:00 BP 93/64 09/25/18 04:00 Pulse Ox 96 09/24/18 21:00 Intake & Output 09/24/18 09/25/18 09/25/18 18:59 06:59 18:59 Intake Total 300 300 Output Total 300 0 Balance 0 300 Weight 83.7 kg Intake: IV 300 300 D5-0.45% NaCl with KCl 300 300 20Meq/l 1,000 ml @ 50 mls /hr IV .Q20H [facility] Rx#: [id number] Output: Urine 300 0 Other: Voiding Method Toilet Toilet # Voids 2 1 - Exam Physical Exam: Revealed a 63-year-old female, less confused today, although patient seems to have trouble with long-term memory, and has trouble recalling certain things from the past. Head: Atraumatic, normocephalic. HEENT:[Neck is supple.] [No neck masses.] [No thyromegaly.] [No JVD.] PERRLA, EOMI, no icterus. Chest: [Clear throughout, no crackles, no rhonchi, no wheezes.] Cardiac Exam: [Normal S1 and S2, no S3 gallop, no murmur.] Abdomen: [Soft, nontender, no megaly, no rebound, no guarding, normal bowel sounds.] Extremities: [No clubbing, no edema, no cyanosis.] Neurological Exam: Patient is confused, has no idea where she really is, minimal right-sided weakness is noted, strength on the right side is 3/5, however strength on the left side is 4/5. Psychiatric: Confused, blunt affect, poor mental status examination, poor insight. Musculoskeletal: As noted above, clearly has right-sided weakness. Skin: No rashe - Labs CBC & Chem 7: 09/25/18 03:56 09/25/18 03:56 Labs: Abnormal Lab Results - Last 24 Hours (Table) 09/24/18 09/24/18 09/24/18 Range/Units 11:57 17:17 20:48 Potassium (3.5-5.1) mmol/L Chloride (98-107) mmol/L Glucose (74-99) mg/dL POC Glucose (mg/dL) 107 H 279 H 153 H (75-99) mg/dL Alkaline Phosphatase (38-126) U/L Albumin (3.5-5.0) g/dL 09/25/18 09/25/18 09/25/18 Range/Units 03:56 04:10 06:58 Potassium 3.4 L (3.5-5.1) mmol/L Chloride 108 H (98-107) mmol/L Glucose 143 H (74-99) mg/dL POC Glucose (mg/dL) 141 H 145 H (75-99) mg/dL Alkaline Phosphatase 26 L (38-126) U/L Albumin 3.4 L (3.5-5.0) g/dL Microbiology - Last 24 Hours (Table) 09/23/18 00:00 Urine Culture - Final Urine,Catheterized Assessment and Plan Plan: 1 acute diabetic ketoacidosis, however the patient is doing well, the anion gap has closed, metabolic acidosis has resolved, patient's has been transitioned from insulin drip to basal insulin in the form of Levemir, and NovoLog sliding scale with mealtime coverage 2 subacute CVA, possible evolving or recurrent CVA involving the left thalamic area as noted on the MRI. 3 acute kidney injury related to diabetic ketoacidosis and dehydration, resolved 4 history of paroxysmal atrial fibrillation, 5 history of Karis's disease 6 acute encephalopathy could be metabolic in nature or could be related to her underlying CVA. Plan: From pulmonary/critical care perspective patient remains stable, anion gap has closed, metabolic acidosis has resolved, acute kidney injury has resolved, hemodynamically stable, no fever no chills, no complaints of chest pain or shortness of breath, confusion seems to be improving, patient is scheduled for repeat MRI of the brain today with contrast. From our perspective patient can be transferred out of the intensive care unit to selective care today. I performed a history & physical examination of the patient and discussed their management with my nurse practitioner, Yeni Monte. I reviewed the nurse practitioner's note and agree with the documented findings and plan of care. Lung sounds are positive for clear breath sounds. The findings and the impression was discussed with the patient. I attest to the documentation by the nurse practitioner. Time with Patient: Greater than 30
--- NOTE | 2018-09-25 10:05 | ECHOF ---
Referral Reason:htn MEASUREMENTS -------- HEIGHT: 162.6 cm WEIGHT: 77.6 kg BP: RVIDd: 3.2 cm (< 3.3) IVSd: 1.1 cm (0.6 - 1.1) LVIDd: 3.6 cm (3.9 - 5.3) LVPWd: 0.9 cm (0.6 - 1.1) IVSs: 1.3 cm LVIDs: 3.4 cm LVPWs: 1.1 cm LA Diam: 3.2 cm (2.7 - 3.8) Ao Diam: 2.4 cm (2.0 - 3.7) AV Cusp: 1.8 cm (1.5 - 2.6) LA Diam: 3.5 cm (2.7 - 3.8) MV EXCURSION: 18.048 mm (> 18.000) MV EF SLOPE: 114 mm/s (70 - 150) EPSS: 0.3 cm MV E Vicente: 0.69 m/s MV DecT: 195 ms MV A Vicente: 0.86 m/s MV E/A Ratio: 0.80 RAP: 5.00 mmHg RVSP: 14.24 mmHg FINDINGS -------- Sinus rhythm. This was a technically adequate study. The left ventricular size is normal. Left ventricular wall thickness is normal. Overall left vent ricular systolic function is low-normal with, an EF between 50 - 55 %. The right ventricle is mildly enlarged. The left atrial size is normal. The right atrial size is normal. The aortic valve is trileaflet, and appears structurally normal. No aortic stenosis or regurgitation. Mild mitral regurgitation is present. Mild tricuspid regurgitation present. There is no evidence of pulmonary hypertension. The right v entricular systolic pressure, as measured by Doppler, is 14.24mmHg. There is no pulmonic regurgitation present. The aortic root size is normal. There is no pericardial effusion. CONCLUSIONS -------- 1. The left ventricular size is normal. 2. Left ventricular wall thickness is normal. 3. Overall left ventricular systolic function is low-normal with, an EF between 50 - 55 %. 4. The right ventricle is mildly enlarged. 5. The left atrial size is normal. 6. The right atrial size is normal. 7. The aortic valve is trileaflet, and appears structurally normal. No aortic stenosis or regurgitati on. 8. Mild mitral regurgitation is present. 9. Mild tricuspid regurgitation present. 10. There is no evidence of pulmonary hypertension. 11. The right ventricular systolic pressure, as measured by Doppler, is 14.24mmHg. 12. There is no pulmonic regurgitation present. 13. The aortic root size is normal. 14. There is no pericardial effusion. ORTHOPHOTO TECH/DRAFTSMAN: Rosalie Rock RDCS
[2018-09-25 11:41] LABS: Glucose,Whole Blood 155 mg/dL (75-99)
--- NOTE | 2018-09-25 12:27 | P.PN ---
Subjective Progress Note Date: 09/25/18 This is a 63-year-old female with a known past medical history of type 1 diabetes mellitus on insulin pump, recent CVA about 2 weeks ago affecting the left side, Karis's disease, atrial fibrillation not on anticoagulation only an aspirin per patient and family. Patient was brought into the emergency room due to increasing confusion and lethargy with elevated blood sugar. Daughter called EMS and EMS reported a blood sugar of 563. Patient was given IV fluids and Route. According to the patient's daughter patient had a stroke about 2 weeks ago. She was admitted to [facility] at that time. She was there for about a week. Her daughter patient had about a 90% recovery. At home patient was taking care of her own insulin pump. On over the last 2 days the daughter noted that her mom was having difficulty managing her insulin pump and medications. The insulin pump battery went low and also it was time to replace insulin. Patient's daughter was unaware of how to use the pump. She tried to check her mother's blood sugar had difficulty with this. She felt that the sugars maybe be low and started to give her PE her mom orange juice. She reports that her mom was very confused and lethargic. Cannot even sit up in a chair. She had loss of bladder control. In the ER she was found to have a glucose of 813 acetone was positive. She has been started on insulin drip. Discussed with ER physician insulin pump will be removed. White count 15.3 sodium 136 potassium 6.7 chloride 97 CO2 less than 5 and anion gap unable calculated BUN 34 creatinine 1.9 for lactic acid 6.8. Patient is receiving IV fluid boluses. She is currently on normal saline at 100 mL an hour. And also on insulin drip. Patient will be admitted to the ICU. Dr. Santiago will be consulted for ICU management. Computed tomography scan of the brain shows an acute subacute traumatic lacunar injury extending into the posterior limb. Neurology will be consulted. Patient is lethargic. She is arousable. She is alert and orientated to name and place. She did not know the year. She did not know her daughter's name. She denies any chest pain or shortness of breath. Denies any nausea or vomiting. Denies any fevers chills or sweats. Denies any bowel movement changes or urinary symptoms. 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 Patient also has had decrease in appetite has not been eating and drinking well at home. On 09/23/2018 patient is alert and oriented 3 in no apparent distress she denies any pain or discomfort at this time there is no fever or chills no headache or dizziness no chest pain no shortness of breath no cough no nausea or vomiting no abdominal pain no diarrhea and no urinary symptoms Buck catheter is in. Labs are improving with creatinine down to 1.23 lactic acid down to 1.4 white blood count down to 12 point On 09/24/2018 patient was seen and examined in the ICU today, she is more alert and oriented, she denies any complaints at this time, there is no fever or chills no headache or dizziness no chest pain no shortness of breath or cough no nausea or vomiting no abdominal pain no diarrhea and no urinary symptoms 09/25/2018 patient is awake and alert sitting up in bed. Still has poor appetite. Blood sugar 196 this morning. Potassium is 3.4 and being replaced. She is scheduled for a repeat MRI of the brain with contrast for further evaluation about a possible brain bleed. Objective - Vital Signs Vital signs: Vital Signs Temp 97.4 F L 09/25/18 08:00 Pulse 84 09/25/18 08:00 Resp 12 09/25/18 08:00 BP 128/72 09/25/18 08:00 Pulse Ox 95 09/25/18 08:00 Intake & Output 09/24/18 09/25/18 09/25/18 18:59 06:59 18:59 Intake Total 300 300 50 Output Total 300 0 Balance 0 300 50 Weight 83.7 kg 83.7 kg Intake: IV 300 300 50 D5-0.45% NaCl with KCl 300 300 50 20Meq/l 1,000 ml @ 50 mls /hr IV .Q20H [facility] Rx#: [id number] Output: Urine 300 0 Other: Voiding Method Toilet Toilet Toilet Bedside Commode # Voids 2 1 1 - Exam Head normocephalic Neck supple Lungs clear to auscultation bilaterally no wheezing or crackles Heart regular rate and rhythm S1-S2, no rub or gallop Abdomen is soft nontender nondistended positive bowel sounds no hepatosplenomegaly Extremities no edema Neuro alert and orientated to 3 - Labs CBC & Chem 7: 09/25/18 03:56 09/25/18 03:56 Labs: Abnormal Lab Results - Last 24 Hours (Table) 09/24/18 09/24/18 09/25/18 Range/Units 17:17 20:48 03:56 Potassium 3.4 L (3.5-5.1) mmol/L Chloride 108 H (98-107) mmol/L Glucose 143 H (74-99) mg/dL POC Glucose (mg/dL) 279 H 153 H (75-99) mg/dL Alkaline Phosphatase 26 L (38-126) U/L Albumin 3.4 L (3.5-5.0) g/dL 09/25/18 09/25/18 09/25/18 Range/Units 04:10 06:58 08:35 Potassium (3.5-5.1) mmol/L Chloride (98-107) mmol/L Glucose (74-99) mg/dL POC Glucose (mg/dL) 141 H 145 H 196 H (75-99) mg/dL Alkaline Phosphatase (38-126) U/L Albumin (3.5-5.0) g/dL 09/25/18 Range/Units 11:39 Potassium (3.5-5.1) mmol/L Chloride (98-107) mmol/L Glucose (74-99) mg/dL POC Glucose (mg/dL) 155 H (75-99) mg/dL Alkaline Phosphatase (38-126) U/L Albumin (3.5-5.0) g/dL Microbiology - Last 24 Hours (Table) 09/23/18 00:00 Urine Culture - Final Urine,Catheterized Assessment and Plan Assessment: 1. Uncontrolled blood sugars with diabetic ketoacidosis secondary to insulin pump being used incorrectly and possibly a low battery. Blood sugar 813 acetone positive CO2 less than 5. Patient placed on insulin drip in the ER. She'll be admitted to the ICU. Dr. Ferrari will be consulted for ICU management. Continue with IV fluids. Discontinue insulin pump. Urinalysis positive for ketones. DKA has now resolved. Dr. Vega Ku has added Levemir 23 units at bedtime with NovoLog 8 units scheduled 3 times a day and a NovoLog sliding scale 2. Acute kidney injury: Likely related to the DKA and dehydration now resolved with IV fluids. 3. Hyperkalemia: potassium 6.7 likely related to acute kidney injury and hyperglycemia. Resolved after insulin and Kayexalate given. Patient is now hypokalemic with a potassium of 3.4. She is receiving supplement potassium through the IV 4. Elevated lactic acid level of 6.8. Repeat lactic acid 6 show improvement with IV fluids. 5. Leukocytosis: Possibly related to hyperglycemia and UTI 6. Recent stroke 2 weeks ago treated at [facility]. Computed tomography scan of the brain showing acute to subacute left thalamic lacunar injury extending into the posterior limb of the internal capsule. No intracranial hemorrhage or midline shift. Neurology is following closely. They have discontinued the Plavix for further evaluation about a possible brain bleed. Patient is scheduled for MRI of the brain with contrast today. Await further neurology recommendations. 7. History of Karis's disease 8. History of paroxysmal atrial fibrillation. Patient had been on aspirin 81 mg by mouth daily prior to her stroke. Patient and daughter report that she had not been on any anticoagulation. No further episodes of atrial fibrillation. Followed by cardiology. Awaiting their recommendations regarding anticoagulation. 7. Acute metabolic encephalopathy with Altered mental status and lethargy secondary to elevated blood sugars present on admission. Now resolved 8. Hyperlipidemia continue statin 9. UTI: Continue the antibiotic urine culture negative. Consult social work and medical educator in regards to insulin pump malfunction GI prophylaxis protonix and DVT prophylaxis subcu heparin I performed an examination of the patient and discussed their management with the physician Technical Adjuster. I have reviewed the Physician Technical Adjuster's notes and agree with the documented findings and plan of care
--- NOTE | 2018-09-25 13:26 | MR ---
EXAMINATION TYPE: MR brain w con DATE OF EXAM: 09/25/2018 COMPARISON: MR brain 09/23/2018 HISTORY: Patient with acute thalamic lesion, contrast MRI TECHNIQUE: Postcontrast images of the brain and brainstem is performed without and with IV contrast, utilizing 7 .5 mL intravenous Gadavist . FINDINGS: The signal abnormality seen in the left thalamus shows ring enhancement following contrast administration. Lesion measures approximately 13 x 14 x 10 cm and shows central low signal. Immediate ly inferior and medial smaller area enhancement is present measuring 3 to 4 mm. No additional abnormal enhancement is evident IMPRESSION: Ring-enhancing lesion within the left thalamus possible small secondary focus, findings c ould represent tumors, correlate to exclude abscess, demyelination and hemorrhage felt to be less lik nidia. Follow-up recommended.
--- NOTE | 2018-09-25 17:19 | CT ---
EXAMINATION TYPE: CT brain wo con DATE OF EXAM: 09/25/2018 COMPARISON: September 22, 2018 HISTORY: Left thalmic lesion. CT DLP: 896.2 mGycm Automated exposure control for dose reduction was used. FINDINGS: There is a 2 cm poorly marginated area of hypodensity in the left thalamus. This appears not signific antly different than last exam. There is no mass effect. There is no midline shift. There is no sign of intracranial hemorrhage. Ventricles of normal size. The calvarium is intact. IMPRESSION: HYPODENSITY IN THE LEFT THALAMUS CONSISTENT WITH SUBACUTE INFARCT. NO CHANGE COMPARED TO RECENT EXAM.
[2018-09-25 17:24] LABS: Glucose,Whole Blood 185 mg/dL (75-99)
[2018-09-25] MEDS: LEVOFLOXACIN 250 MG TAB PO SCH (17:27)
[2018-09-25 21:28] LABS: Glucose,Whole Blood 87 mg/dL (75-99)
[2018-09-25] MEDS: ATORVASTATIN 40 MG TAB PO SCH (21:38)
--- NOTE | 2018-09-25 21:58 | P.PN ---
Subjective Progress Note Date: 09/25/18 This patient is a 63-year-old female with a history of type 1 diabetes mellitus on insulin pump. Patient suffered a recent stroke about 2 weeks ago and was admitted to [facility] where she was treated. We did request records yesterday but these are still pending from this hospital. Patient underwent a computed tomography scan of the brain yesterday which revealed evidence of a left thalamic lesion. She was recommended to have MRI of the brain today which was completed and read by Dr. Noguera. The MRI reveals evidence of a 1.9 cm lesion in the left thalamus which does not represent acute ischemia. This may be related to previous bleeding. A postcontrast MR was suggested. We have recommended the MRI of the brain to be done with contrast tomorrow morning. Anticoagulation has been placed on hold until this MRI has been completed. We did obtain medical records for [facility] where the patient was transferred following her initial stroke findings on 09/09. Patient was given TPA and transferred to [facility] for neuro interventional evaluation and treatment. We did obtain the medical records from [facility] yesterday. Patient underwent an MRI of the brain on 09/14/2018 results of which indicated a 12 mm focus of acute/ subacute ischemia in the left lyn. Patient also had a computed tomography scan of the brain performed on 09/10/2018 after she was transferred to [facility] and this CAT scan revealed focal ischemia in the left thalamus. There appears to be discrepancy on the MRI studies between [facility] and MRI of the brain that was done here at [facility] on 2017 and revealed a 1.9 cm lesion in the left thalamus which does not represent acute ischemia. Radiologist stated this may be related to previous bleeding. Based on the 2 discrepancies on both MRI studies of the brain we have recommended MRI of the brain to be done with gadolinium tomorrow morning and the films are to be reviewed personally by myself and the radiologist so that comparison scan be made. This patient likely will require long-term anticoagulation however a decision to proceed will be given only after her MRI studies have all been reviewed and there is no evidence to suggest underlying intracranial hemorrhage either past or present. Case will be discussed tomorrow with cardiology in regards to anticoagulation. The patient yesterday was showing clear signs of metabolic encephalopathy. She had evidence of uncontrolled hyperglycemia. Her blood sugars were size 813 and her acetone was positive. She was started on insulin drip yesterday. Today the patient is more alert and oriented. She does not appear to be in any distress. She denies any headache or fever. At this time given her MRI findings we have recommended that the Plavix be placed on hold until the MR of the brain with contrast study is done. We are still awaiting all of her records to be sent for [facility] so that exact findings at that time could be reviewed. We did discuss the MRI findings today with Dr. Keenan and at this point we have recommended to place her Plavix on hold until further information is obtained. Patient was seen by cardiology today and Dr. Guzman is recommending echocardiogram Doppler to be done. Patient has a history of paroxysmal atrial fibrillation which was found on a documentation from 2015. Patient was seen today by cardiology and Dr. Guzman is recommending given her history of paroxysmal atrial fibrillation and recent stroke that anticoagulation is indicated. We will discuss with Dr. Guzman the need for anticoagulation for this patient. Further history was obtained from the patient today bedside. Apparently she has been following with the cardiologists in [facility] on a regular basis. She is not aware of her cardiologists mentioning any past history of paroxysmal atrial fibrillation. We have also had the patient go for a repeat MRI of the brain with gadolinium today. This MRI study done on 09/25/2018 with gadolinium reveals a ring-enhancing lesion within the left thalamus. This finding raises the possibility of multiple differential diagnosis including brain tumor, brain abscess, demyelination, or stroke variation. This MRI films were reviewed today by myself and Dr. Carlos from the radiology department. We did recommend to have a computed tomography scan of the brain done today as well to rule out any possibility of hemorrhage. This was done on 09/25/2018 and reveals hypodensity in the left thalamus consistent with subacute infarct with no change compared to her recent exam. The patient clinically was examined today at bedside and is doing much better in terms of her overall mental status. She is much more alert and oriented and able to answer all questions appropriately today. Her neurological examination reveals mild right-sided hemiparesis which also is improving with time. Given the finding of possibility of brain abscess on this MRI study we did recommend a consultation with Dr. Alcala from infectious disease. Dr. Alcala did see the patient today and feels that brain abscess is very low on his suspicion for this ring- enhancing lesion on the MRI of the brain. We did discuss with Dr. Alcala today over the telephone at length the MRI findings. He has spoken with Dr. Milton in the radiology department to is going to obtain all of the MRI studies done on this patient at [facility] as well as here and he will give a final interpretation of these MRI test results. Clinically the patient is shown significant improvement today in terms of her mental status. We are holding off on anticoagulation at this time and will discuss this further with Dr. Guzman tomorrow morning. Dr. Carlos review the MRI of the brain done today and there does not appear to be any evidence of acute stroke on diffusion- weighted imaging. This raises the question whether this lesion is an acute stroke or some form of infectious etiology or otherwise. At this point we will hold off on anticoagulating the patient and will discuss this further with Dr. Guzman tomorrow. We recommended she remain in the ICU one further day unless a bed is needed for which she could be transferred to the third floor. Her overall prognosis at this time remains guarded. Patient is remaining on a DKA protocol and her encephalopathy is showing improvement. This patient's significant improvement in her mental status today suggests that she had a severe form of metabolic encephalopathy from her hyperglycemia. Now that her blood sugars are under much better control she seems to be back to baseline. It is still very much unclear why the patient had difficulty using her insulin pump recently as she has been using the pump for over 12 years. We will continue to monitor her mental status closely during this admission. This case was discussed at length today with Dr. Alcala. We will continue to follow her closely and will give further recommendations pending the review of all of her MRIs by Dr. Milton. This patient's overall prognosis at this time remains guarded. We will continue to follow her progress closely in the intensive care unit. Objective - Vital Signs Vital signs: Vital Signs Temp 97.8 F 09/25/18 16:00 Pulse 93 09/25/18 17:00 Resp 20 09/25/18 17:00 BP 133/90 09/25/18 17:00 Pulse Ox 96 09/25/18 17:00 Intake & Output 09/24/18 09/25/18 09/25/18 18:59 06:59 18:59 Intake Total 300 300 50 Output Total 300 0 0 Balance 0 300 50 Weight 83.7 kg 83.7 kg Intake: IV 300 300 50 D5-0.45% NaCl with KCl 300 300 50 20Meq/l 1,000 ml @ 50 mls /hr IV .Q20H [facility] Rx#: [id number] Output: Urine 300 0 0 Other: Voiding Method Toilet Toilet Toilet Bedside Commode # Voids 2 1 1 - Exam Physical examination: PHYSICAL EXAMINATION: Patient is resting comfortably in bed. VITAL SIGNS: Blood pressure is [133/90]. Heart rate is [93]. Respiration is [20] . Temperature is [97.8]. HEENT: Head is atraumatic, neck is supple, there were no carotid bruits. CHEST: Lungs are clear to auscultation and percussion. CARDIAC: S1, S2 normal rate and rhythm. There is no murmur. ABDOMEN: Soft and nontender. Bowel sounds are present. EXTREMITIES: There is no pedal edema. Peripheral pulses are present. Neurological examination: Patient's neurological examination shows improvement in her mental status as compared to yesterday. The patient is much more awake and alert and able to answer all questions appropriately. This is significant improvement in her mental status as compared to yesterday's neurological examination. Cranial nerves II through XII are grossly intact. Motor examination reveals slight right pronator drift. Sensory examination was intact. Deep tendon reflexes are 1+ and symmetric. Plantar responses flexor bilaterally. Coordination and gait cannot be assessed in this patient at this time. - Labs CBC & Chem 7: 09/25/18 03:56 09/25/18 03:56 Labs: Abnormal Lab Results - Last 24 Hours (Table) 09/24/18 09/25/18 09/25/18 Range/Units 20:48 03:56 04:10 Potassium 3.4 L (3.5-5.1) mmol/L Chloride 108 H (98-107) mmol/L Glucose 143 H (74-99) mg/dL POC Glucose (mg/dL) 153 H 141 H (75-99) mg/dL Alkaline Phosphatase 26 L (38-126) U/L Albumin 3.4 L (3.5-5.0) g/dL 11/04/0709/25/18 09/25/18 Range/Units 06:58 08:35 11:39 Potassium (3.5-5.1) mmol/L Chloride (98-107) mmol/L Glucose (74-99) mg/dL POC Glucose (mg/dL) 145 H 196 H 155 H (75-99) mg/dL Alkaline Phosphatase (38-126) U/L Albumin (3.5-5.0) g/dL 09/25/18 Range/Units 17:23 Potassium (3.5-5.1) mmol/L Chloride (98-107) mmol/L Glucose (74-99) mg/dL POC Glucose (mg/dL) 185 H (75-99) mg/dL Alkaline Phosphatase (38-126) U/L Albumin (3.5-5.0) g/dL Microbiology - Last 24 Hours (Table) 09/23/18 00:00 Urine Culture - Final Urine,Catheterized Assessment and Plan (1) Acute ischemic left MCA stroke Current Visit: Yes Status: Acute Code(s): I63.512 - CEREB INFRC D/T UNSP OCCLS OR STENOS OF LEFT MID CEREB ART SNOMED Code(s): 285494144 (2) Diabetic ketoacidosis Current Visit: Yes Status: Acute Code(s): E13.10 - OTH DIABETES MELLITUS WITH KETOACIDOSIS WITHOUT COMA SNOMED Code(s): 202959129 (3) Dehydration Current Visit: Yes Status: Acute Code(s): E86.0 - DEHYDRATION SNOMED Code( s): 00958917 (4) History of CVA (cerebrovascular accident) Current Visit: Yes Status: Acute Code(s): Z86.73 - PRSNL HX OF TIA (TIA), AND CEREB INFRC W/O RESID DEFICITS SNOMED Code(s): 014719134 (5) Hyperosmolarity due to secondary diabetes mellitus Current Visit: Yes Status: Acute Code(s): E13.00 - OTH DIAB W HYPROSM W/O NONKET HYPRGLY-HYPROS COMA (N[facility]) SNOMED Code(s): 73395798 Plan: This patient is a 63-year-old female initially seen at [facility] back on 09/09/2018 at which time she was diagnosed as having suffered an acute stroke. She was given TPA and then transferred to the neuro intensive care unit at [facility]. She underwent a MRI study there which revealed her to have suffered a acute left pontine infarct. She was discharged after 5-7 days to home. She was coming along fairly well until September 22 when she developed severe uncontrolled diabetes mellitus. Patient had a blood sugar of 813. She has been using a insulin pump but for whatever reason she became very confused and was not properly adjusting her insulin requirements. She was brought into the emergency room on 09/22/2018 and was admitted to Hospital. She underwent an initial computed tomography scan and subsequent MRI scan of the brain which revealed a left thalamic lesion. She was sent for MRI of the brain with gadolinium today the results of which are noted above. MRI reveals a ring-enhancing lesion in the left thalamus. The differential diagnosis is as discussed above. We did contact Dr. Alcala today who has a very low suspicion that this lesion represents a brain abscess. He will go into further evaluation for other possible infectious causes. Her MRI of the brain performed with gadolinium today failed to reveal any evidence of acute stroke on diffusion-weighted imaging in the left thalamus. This raises the question that this lesion may not represent a acute or subacute infarction. At this point we will need to discuss with cardiology and Dr. Guzman the need for anticoagulation of this patient given this rather complex MRI findings. At this point we will continue to hold her off on Plavix and we'll hold anticoagulation until her case can be discussed with Dr. Guzman tomorrow at length. The patient clinically showing significant improvement in her mental status today. We will continue to follow her progress closely during this admission along with multiple specialists that her seeing her. Overall prognosis at this time remains guarded.
[2018-09-25] MEDS: D5-0.45% NACL WITH KCL 20MEQ/L 1,000 ML IV SCH (22:01)
[2018-09-25] MEDS: INSULIN DETEMIR 100 UNIT/ML 10 ML VIAL SQ SCH ×3 (22:01→22:33)
[2018-09-25 22:33] LABS: Glucose,Whole Blood 129 mg/dL (75-99)
[2018-09-25] MEDS: SODIUM CHLORIDE 0.9% 1,000 ML IV SCH ×2 (22:56→22:58)
--- NOTE | 2018-09-25 23:37 | P.CONS ---
History of Present Illness - Reason for Consult Consult date: 09/25/18 - Chief Complaint altered mental status - History of Present Illness 63-year-old [facility] September when her family found her to have significant alteration of her mental status. The patient is a very significant pertinent recent past medical history 09/09/2018 she at that time had significant alteration of her mental status and had noticed some weakness. She was brought to the emergency center and with her localizing signs or was concerns to a new stroke. The stroke network was initiated and TPA was given and she was transferred to the outside hospital. His related that the imaging studies there did confirm stroke although there has been some discussion as to the actual location of the stroke. She apparently improved and was a home setting, she relates she has an insulin pump and may have stopped working. She then had the significant worsening of her mental status and upon the admission. Evidence of blood sugar greater than 812 ans was acetone positive. With this it was thought that the DKA was responsible for her altered mental status and with treatment of her extensive metabolic abnormalities she's had some improvement to her neurological status. She over did have imaging study again repeated an MRI was with some ongoing marked abnormalities. This is directly reviewed with the radiologist. The patient recalls no fevers or chills. She's not been having severe headache. Neurologically she was showing some improvement until the acute change at the time of this admission with the profound metabolic abnormalities. At this time she sitting upright. She is awake and alert and is able to eat some of her dinner although does not like how it tasted. Her mentation is clear and she is pleased that she has had improvement. Review of Systems Patient feeling considerably better than the time of admission 3 days ago HEENT:Denies headache or acute visual change. Denies sinus or mouth discomforts. Denies neck stiffness or pain. Denies significant oral cavity pain. Denies difficulty on swallowing. Lungs: Denies significant shortness of breath, cough, sputum production, or hemoptysis. Cardiovascular: Denies significant shortness of breath, chest pain, chest wall pain, orthopnea, dyspnea on exertion, syncope Gastrointestinal:Denies nausea, vomiting, diarrhea, constipation, hematemesis, melena, hematochezia. No no significant change of bowel habit noticed. Musculoskeletal: denies significant myalgias or arthralgias. No new joint swelling. Denies new back pain. Skin: Denies new rash or lesions. No new ulcers or wounds are related.. Neuro: Denies headache or visual change. Denies any new onset weakness or difficulty with ambulation. Denies falls or seizures. Psychiatric:Denies anxiety or depression. Endocrine: Denies significant fatigue, denies significant weight loss or weight gain. Past Medical History Past Medical History: Atrial Fibrillation, Diabetes Mellitus, GERD/Reflux, Sleep Apnea/CPAP/BIPAP, Thyroid Disorder Additional Past Medical History / Comment(s): no cpap used, arthritis, thyroid nodule, Karis disease History of Any Multi-Drug Resistant Organisms: None Reported Past Surgical History: Bariatric Surgery, Cholecystectomy, Tonsillectomy Additional Past Surgical History / Comment(s): right ovary removed, Past Anesthesia/Blood Transfusion Reactions: No Reported Reaction, Family History of Problems w/ Anesthesia Additional Past Anesthesia/Blood Transfusion Reaction / Comm: DIFFICULTY WITH INTUBATION-NEEDS SMALL TUBE. Needs to use a child's one. mother has diff coming out Past Psychological History: No Psychological Hx Reported Additional Psychological History / Comment(s): Single but lives with adult children and grandchildren. Current tobacco smoker. Was in the stationed in the [facility] mostly in [facility]. Denies international travel. No animals in the home. Does not live on a farm. Not noted to have a significant alcohol or recreational drug use Smoking Status: Never smoker Past Alcohol Use History: None Reported Past Drug Use History: None Reported - Past Family History Mother Family Medical History: No Reported History Father Family Medical History: Myocardial Infarction ([place]) Medications and Allergies Home Medications and Allergies Comment(s): Current Medications Atorvastatin Calcium (Lipitor) 40 mg PO HS [facility] Last Admin: 09/25/18 21:38 Dose: 40 mg Potassium Chloride/Dextrose/Sod Cl (D5%-1/2ns-Kcl 20 Meq/L Iv Solution) 1,000 mls @ 50 mls/hr IV .Q20H [facility] Last Admin: 09/25/18 22:01 Dose: 50 mls/hr Insulin Aspart (Novolog) 8 unit 0.1 unit/kg (8 unit) SQ AC-TID [facility] Last Admin: 09/25/18 17:27 Dose: 8 unit Insulin Aspart (Novolog) 0 unit SQ [id number] [facility]; Protocol Last Admin: 09/25/18 21:30 Dose: Not Given Insulin Detemir (Levemir) 23 unit 0.3 unit/kg (23 unit) SQ HS [facility] Last Admin: 09/25/18 22:33 Dose: 23 unit Levofloxacin (Levaquin) 250 mg PO Q24H [facility] Last Admin: 09/25/18 17:27 Dose: 250 mg Levothyroxine Sodium (Synthroid) 75 mcg PO 0630 [facility] Last Admin: 09/25/18 07:37 Dose: 75 mcg Metoprolol Tartrate (Lopressor) 25 mg PO BID [facility] Last Admin: 09/25/18 21:38 Dose: 25 mg Miscellaneous Information (Phosphorus Per Protocol) 1 each MISCELLANE DAILY PRN ; Protocol PRN Reason: Per Protocol Miscellaneous Information (Potassium Per Protocol) 1 each MISCELLANE DAILY PRN ; Protocol PRN Reason: Per Protocol Pantoprazole Sodium (Protonix) 40 mg PO AC-BRKFST [facility] Last Admin: 09/25/18 07:37 Dose: 40 mg Home Medications Medication Instructions Recorded Confirmed Type Insulin Aspart [NovoLOG] See Protocol SQ CONTINUOUS 08/18/15 09/22/18 History Metoprolol Tartrate 25 mg PO BID 08/07/16 09/22/18 History Levothyroxine Sodium [Synthroid] 75 mcg PO DAILY 11/27/17 09/22/18 History Atorvastatin [Lipitor] 40 mg PO HS 09/22/18 09/22/18 History Clopidogrel [Plavix] 75 mg PO DAILY 09/22/18 09/22/18 History Allergies Allergy/AdvReac Type Severity Reaction Status Date / Time Penicillins Allergy Unknown Verified 09/22/18 14:00 Physical Exam Vitals: Vital Signs Temp Pulse Resp BP Pulse Ox 09/25/18 21:00 92 21 139/84 97 09/25/18 20:00 98.2 F 86 16 136/87 96 09/25/18 19:00 85 15 96 09/25/18 18:00 84 19 95 09/25/18 17:00 93 20 133/90 96 09/25/18 16:00 97.8 F 79 13 133/90 95 09/25/18 12:28 97.8 F 82 19 131/89 96 09/25/18 08:00 97.4 F L 84 12 128/72 95 09/25/18 04:00 98 F 81 14 93/64 09/25/18 03:00 81 17 136/80 09/25/18 02:00 80 19 111/68 09/25/18 01:00 72 15 132/79 09/25/18 00:00 78 12 122/70 Intake and Output 09/25/18 09/25/18 09/26/18 14:59 22:59 06:59 Intake Total 50 Output Total 0 0 Balance 50 0 Intake: IV 50 D5-0.45% NaCl with KCl 50 20Meq/l 1,000 ml @ 50 mls /hr IV .Q20H [facility] Rx#: [id number] Output: Urine 0 0 Other: Voiding Method Toilet Toilet Bedside Commode # Voids 1 1 63-year-old woman sitting upright in a chair, mentation is clear, has her dinner tray by her she ate beans relates that the meat tasted poorly and did not eat much of it. She did eat her fruit. HEENT: Anicteric conjunctiva are pink and moist nasal mucosa grossly intact without significant lesions, there is no thrush. Neck: The neck is supple without significant lymphadenopathy or thyromegaly. Lungs: Good bilateral air entry without significant crackles or wheezing. There is no significant bronchial sounds. There is no egophony or dullness. Heart: Regular rate and rhythm with an audible S1-S2, no S3 no S4. There is no significant murmur click or rub, PMI was nondisplaced. Abdomen: Positive bowel sounds soft and nontender without palpable masses or organomegaly. There was no guarding or rebound. Extremities: The upper extremities have excellent pulses they are symmetric, no significant petechiae or telangiectasia. No splinter hemorrhages were noted. The lower extremities are free from significant edema. The peripheral pulses were 2+ and symmetric. Neuro: Awake alert oriented to person place and time. There are no acute new gross focal sensory motor deficits. Results CBC & Chem 7: 09/25/18 03:56 09/25/18 03:56 Labs: Abnormal Lab Results - Last 24 Hours (Table) 09/25/18 09/25/18 09/25/18 Range/Units 03:56 04:10 06:58 Potassium 3.4 L (3.5-5.1) mmol/L Chloride 108 H (98-107) mmol/L Glucose 143 H (74-99) mg/dL POC Glucose (mg/dL) 141 H 145 H (75-99) mg/dL Alkaline Phosphatase 26 L (38-126) U/L Albumin 3.4 L (3.5-5.0) g/dL 09/25/18 09/25/18 09/25/18 Range/Units 08:35 11:39 17:23 Potassium (3.5-5.1) mmol/L Chloride (98-107) mmol/L Glucose (74-99) mg/dL POC Glucose (mg/dL) 196 H 155 H 185 H (75-99) mg/dL Alkaline Phosphatase (38-126) U/L Albumin (3.5-5.0) g/dL 09/25/18 Range/Units 22:31 Potassium (3.5-5.1) mmol/L Chloride (98-107) mmol/L Glucose (74-99) mg/dL POC Glucose (mg/dL) 129 H (75-99) mg/dL Alkaline Phosphatase (38-126) U/L Albumin (3.5-5.0) g/dL Laboratory Results WBC 4.4 k/uL (3.8-10.6) 09/25/18 03:56 RBC 3.94 m/uL (3.80-5.40) 09/25/18 03:56 Hgb 11.9 gm/dL (11.4-16.0) 09/25/18 03:56 Hct 34.5 % (34.0-46.0) 09/25/18 03:56 MCV 87.5 fL (80.0-100.0) D 09/25/18 03:56 MCH 30.1 pg (25.0-35.0) 09/25/18 03:56 MCHC 34.5 g/dL (31.0-37.0) 09/25/18 03:56 RDW 13.2 % (11.5-15.5) 09/25/18 03:56 Plt Count 181 k/uL (150-450) 09/25/18 03:56 Neutrophils % 59 % 09/25/18 03:56 Lymphocytes % 33 % 09/25/18 03:56 Monocytes % 6 % 09/25/18 03:56 Eosinophils % 1 % 09/25/18 03:56 Basophils % 0 % 09/25/18 03:56 Neutrophils # 2.6 k/uL (1.3-7.7) 09/25/18 03:56 Lymphocytes # 1.4 k/uL (1.0-4.8) 09/25/18 03:56 Monocytes # 0.3 k/uL (0-1.0) 09/25/18 03:56 Eosinophils # 0.0 k/uL (0-0.7) 09/25/18 03:56 Basophils # 0.0 k/uL (0-0.2) 09/25/18 03:56 Hypochromasia Marked 09/22/18 12:22 PT 10.3 sec (9.0-12.0) 09/22/18 12:22 INR 1.1 (<1.2) 09/22/18 12:22 APTT 22.4 sec (22.0-30.0) 09/22/18 12:22 VBG pH 7.11 (7.31-7.41) L* 09/22/18 16:24 VBG pCO2 22 mmHg (37-51) L 09/22/18 16:24 VBG HCO3 7 mmol/L (24-28) L* 09/22/18 16:24 Sodium 139 mmol/L (137-145) 09/25/18 03:56 Potassium 3.4 mmol/L (3.5-5.1) L 09/25/18 03:56 Chloride 108 mmol/L (98-107) H 09/25/18 03:56 Carbon Dioxide 24 mmol/L (22-30) 09/25/18 03:56 Anion Gap 7 mmol/L 09/25/18 03:56 BUN 8 mg/dL (7-17) 09/25/18 03:56 Creatinine 0.58 mg/dL (0.52-1.04) 09/25/18 03:56 Est GFR (CKD-EPI)AfAm >90 (>60 ml/min/1.73 sqM) 09/25/18 03:56 Est GFR (CKD-EPI)NonAf >90 (>60 ml/min/1.73 sqM) 09/25/18 03:56 Glucose 143 mg/dL (74-99) H 09/25/18 03:56 POC Glucose (mg/dL) 129 mg/dL (75-99) H 09/25/18 22:31 POC Glu Warp Yarn Sorter ID [place] 09/25/18 22:31 Osmolality 347 mosm/kg (280-301) H* 09/22/18 12:22 Lactic Ac Sepsis Rflx Y 09/22/18 13:05 Plasma Lactic Acid Apolinar 1.4 mmol/L (0.7-2.0) 09/23/18 04:33 Calcium 9.1 mg/dL (8.4-10.2) 09/25/18 03:56 Phosphorus 1.8 mg/dL (2.5-4.5) L 09/24/18 04:29 Magnesium 2.1 mg/dL (1.6-2.3) 09/23/18 04:33 Total Bilirubin 0.6 mg/dL (0.2-1.3) 09/25/18 03:56 AST 27 U/L (14-36) 09/25/18 03:56 ALT 26 U/L (9-52) 09/25/18 03:56 Alkaline Phosphatase 26 U/L (38-126) L 09/25/18 03:56 Total Creatine Kinase 34 U/L (30-135) 09/22/18 12:22 CK-MB (CK-2) 0.8 ng/mL (0.0-2.4) 09/22/18 12:22 CK-MB (CK-2) Rel Index 2.4 09/22/18 12:22 Troponin I <0.012 ng/mL (0.000-0.034) 09/22/18 12:22 Total Protein 6.3 g/dL (6.3-8.2) 09/25/18 03:56 Albumin 3.4 g/dL (3.5-5.0) L 09/25/18 03:56 Triglycerides 68 mg/dL (<150) 09/23/18 04:33 Cholesterol 115 mg/dL (<200) 09/23/18 04:33 LDL Cholesterol, Calc 52 mg/dL (0-99) 09/23/18 04:33 HDL Cholesterol 49 mg/dL (40-60) 09/23/18 04:33 TSH 1.010 mIU/L (0.465-4.680) 09/22/18 14:36 Urine Color Yellow 09/22/18 00:00 Urine Appearance Cloudy (Clear) H 09/22/18 00:00 Urine pH 5.0 (5.0-8.0) 09/22/18 00:00 Ur Specific Echo 1.016 (1.001-1.035) 09/22/18 00:00 Urine Protein 1+ (Negative) H 09/22/18 00:00 Urine Glucose (UA) 4+ (Negative) H 09/22/18 00:00 Urine Ketones 3+ (Negative) H 09/22/18 00:00 Urine Blood Trace (Negative) H 09/22/18 00:00 Urine Nitrite Negative (Negative) 09/22/18 00:00 Urine Bilirubin Negative (Negative) 09/22/18 00:00 Urine Urobilinogen <2.0 mg/dL (<2.0) 09/22/18 00:00 Ur Leukocyte Esterase Moderate (Negative) H 09/22/18 00:00 Urine RBC 1 /hpf (0-5) 09/22/18 00:00 Urine WBC 23 /hpf (0-5) H 09/22/18 00:00 Ur Squamous Epith Cells 3 /hpf (0-4) 09/22/18 00:00 Urine Bacteria Rare /hpf (None) H 09/22/18 00:00 Urine Mucus Rare /hpf (None) H 09/22/18 00:00 Acetone, Qual Positive (Negative) 09/22/18 12:22 Microbiology 09/23/18 00:00 Urine,Catheterized Urine Culture - Final Assessment and Plan (1) Hyperosmolarity due to secondary diabetes mellitus Narrative/Plan: 63-year-old female presents to hospital with altered mental status, has a very pertinent recent past medical history with a presentation to hospital with altered mental status. At that time there were concerns because of some lateralizing signs of a stroke and she was transferred to the neurosurgical center and received TPA. The imaging studies performed at this facility are evaluated and the radiologist is contacted. First there is some discrepancy in size which we've further characterize. In addition appear that they were not aware of the outside imaging from around 09/09/2018 which may further help characterize the current abnormalities are being seen on the MRI. The follow-up computed tomography scan appears to confirm the recent stroke. Neurology has significant concerns given the findings on the MRI and symmetric enhancement since being seen. The patient has no fevers or leukocytosis and consequently brain abscess seems to be distinctly unlikely. It is still most likely that this was a deep thalmic stroke however serologies for toxoplasmosis can be performed. Without initiate any type of antibiotic therapy at this point in time. Lumbar puncture is not indicated at this time until we have further results of the imaging studies. The case is discussed with neurology. Current Visit: Yes Status: Acute Code(s): E13.00 - OTH DIAB W HYPROSM W/O NONKET HYPRGLY-HYPROS COMA ([facility]) SNOMED Code(s): 14470590 (2) Thalamic stroke Current Visit: Yes Status: Acute Code(s): I63.9 - CEREBRAL INFARCTION, UNSPECIFIED SNOMED Code(s): 499860292
[2018-09-26 02:33] LABS: Glucose,Whole Blood 209 mg/dL (75-99)
[2018-09-26] MEDS: INSULIN ASPART 100 UNIT/ML 1 ML 10 ML VIAL SQ SCH ×8 (02:36→20:17)
[2018-09-26 05:54] LABS: Basophils % (A) 0 %; Eosinophils % (A) 1 %; HCT 36.6 % (34.0-46.0); HGB 12.9 gm/dL (11.4-16.0); Lymphocytes # (A) 1.3 k/uL (1.0-4.8); Lymphocytes % (A) 25 %; MCH 30.7 pg (25.0-35.0); MCHC 35.4 g/dL (31.0-37.0); MCV 86.7 fL (80.0-100.0); Mean Platelet Volume 7.2; Monocytes # (A) 0.3 k/uL (0-1.0); Monocytes % (A) 5 %; Neutrophils # (A) 3.5 k/uL (1.3-7.7); Neutrophils % (A) 68 %; Platelet Count 198 k/uL (150-450); RBC 4.22 m/uL (3.80-5.40); RDW 13.1 % (11.5-15.5); WBC 5.1 k/uL (3.8-10.6)
[2018-09-26 05:58] LABS: ALT 25 U/L (9-52); AST 22 U/L (14-36); Albumin 3.5 g/dL (3.5-5.0); Alkaline Phosphatase 26 U/L (38-126); Anion Gap 6 mmol/L; Blood Urea Nitrogen 7 mg/dL (7-17); Calcium 9.3 mg/dL (8.4-10.2); Carbon Dioxide 28 mmol/L (22-30); Chloride 105 mmol/L (98-107); Glucose 102 mg/dL (74-99); Potassium 3.5 mmol/L (3.5-5.1); Sodium 139 mmol/L (137-145); Total Bilirubin 0.6 mg/dL (0.2-1.3); Total Protein 6.7 g/dL (6.3-8.2)
[2018-09-26 06:03] LABS: Glucose,Whole Blood 88 mg/dL (75-99)
[2018-09-26] MEDS: LEVOTHYROXINE 75 MCG TAB PO SCH (07:00)
[2018-09-26] MEDS: PANTOPRAZOLE 40 MG TABLET PO SCH (07:02)
[2018-09-26] MEDS: METOPROLOL TARTRATE 25 MG TAB PO SCH ×2 (08:51→20:10)
--- NOTE | 2018-09-26 11:03 | PN ---
PROGRESS NOTE Mrs. Mauricio is a 63-year-old female who presented with diabetic ketoacidosis, change in mental status. She had a recent stroke and has received tPA and was in [facility]. She had a remote history of paroxysmal atrial fibrillation, but has been in sinus mechanism since her admission. She is feeling well today. She is denying any chest pain. She denies any dizziness or palpitation. She denies any nausea. She continues to be on Lipitor 40 mg daily, metoprolol tartrate 25 mg twice a day. She is off her Plavix for question of bleeding. PHYSICAL EXAMINATION: Blood pressure 127/60 with the heart rate in the 80s. LUNGS: Clear. HEART: Regular rate and rhythm. S1, S2. No S3. No rub appreciated. ABDOMEN: Soft, nontender. EXTREMITIES: No edema. She had a repeat MRI a yesterday and revealed ring-enhancing lesion in the left thalamus, cannot exclude tumor or abscess. Patient does not appear to be septic in any way. IMPRESSION: 1. Status post recent stroke treated with tPA. 2. Abnormal CT and MRI. 3. Remote history of paroxysmal atrial fibrillation. 4. Diabetic ketoacidosis, resolved. RECOMMENDATION: From the cardiac standpoint, we will continue present therapy. We will await the input of the neurology service regarding anticoagulation. The patient should be anticoagulated because of her ChadsVasc score and her recent stroke. I have discussed those finding with Dr. Keenan. We will await the input of the neurology service as well as the infectious disease service. MMDONTEL / FAVIANN: [id number] /
[2018-09-26 11:22] LABS: Hemoglobin A1C 9.1
[2018-09-26 11:44] LABS: Glucose,Whole Blood 121 mg/dL (75-99)
--- NOTE | 2018-09-26 13:23 | P.PN ---
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 Patient was brought into the emergency room due to increasing confusion and lethargy with elevated blood sugar. Daughter called EMS and EMS reported a blood sugar of 563. Patient was given IV fluids and Route. According to the patient's daughter patient had a stroke about 2 weeks ago. She was admitted to [facility] at that time. She was there for about a week. Her daughter patient had about a 90% recovery. At home patient was taking care of her own insulin pump. On over the last 2 days the daughter noted that her mom was having difficulty managing her insulin pump and medications. The insulin pump battery went low and also it was time to replace insulin. Patient's daughter was unaware of how to use the pump. She tried to check her mother's blood sugar had difficulty with this. She felt that the sugars maybe be low and started to give her PE her mom orange juice. She reports that her mom was very confused and lethargic. Cannot even sit up in a chair. She had loss of bladder control. In the ER she was found to have a glucose of 813 acetone was positive. She has been started on insulin drip. Discussed with ER physician insulin pump will be removed. White count 15.3 sodium 136 potassium 6.7 chloride 97 CO2 less than 5 and anion gap unable calculated BUN 34 creatinine 1.9 for lactic acid 6.8. Patient is receiving IV fluid boluses. She is currently on normal saline at 100 mL an hour. And also on insulin drip. Patient will be admitted to the ICU. Dr. Santiago will be consulted for ICU management. Computed tomography scan of the brain shows an acute subacute traumatic lacunar injury extending into the posterior limb. Neurology will be consulted. Patient is lethargic. She is arousable. She is alert and orientated to name and place. She did not know the year. She did not know her daughter's name. She denies any chest pain or shortness of breath. Denies any nausea or vomiting. Denies any fevers chills or sweats. Denies any bowel movement changes or urinary symptoms. Patient does have an medical i d sales that she follows outpatient. Patient also has had decrease in appetite has not been eating and drinking well at home. On 09/23/2018 patient is alert and oriented 3 in no apparent distress she denies any pain or discomfort at this time there is no fever or chills no headache or dizziness no chest pain no shortness of breath no cough no nausea or vomiting no abdominal pain no diarrhea and no urinary symptoms Buck catheter is in. Labs are improving with creatinine down to 1.23 lactic acid down to 1.4 white blood count down to 12 point On 09/24/2018 patient was seen and examined in the ICU today, she is more alert and oriented, she denies any complaints at this time, there is no fever or chills no headache or dizziness no chest pain no shortness of breath or cough no nausea or vomiting no abdominal pain no diarrhea and no urinary symptoms 09/25/2018 patient is awake and alert sitting up in bed. Still has poor appetite. Blood sugar 196 this morning. Potassium is 3.4 and being replaced. She is scheduled for a repeat MRI of the brain with contrast for further evaluation about a possible brain bleed. 09/26/2018 patient transferred out of the ICU yesterday. She did have a low blood sugar of 88 this morning. She did not receive an evening snack. She was in the transition of moving from ICU to the telemetry floor. Otherwise blood sugars have shown great improvement with the insulin. Awaiting further recommendations per neurology and cardiology in regards to anticoagulation due to her history of paroxysmal atrial fibrillation and stroke. MRI of the brain does show a ring enhancing lesion within the left thalamus possible small secondary focus findings could represent tumors, correlate to exclude abscess, demyelination and hemorrhage felt less likely. Repeat computed tomography scan of the brain shows hypodensity in the left thalamus consistent with subacute infarct. Patient seen by infectious disease they are not recommending a lumbar puncture. Infectious disease also evaluated patient and felt that brain abscess to be unlikely. Patient has no new complaints. She has been up and ambulating without assistance. Denies any chest pain or shortness of breath. Reports regular bowel movements. Denies any difficulty urinating. Objective - Vital Signs Vital signs: Vital Signs Temp 97.1 F L 09/26/18 12:00 Pulse 88 09/26/18 12:00 Resp 16 09/26/18 12:00 BP 122/60 09/26/18 12:00 Pulse Ox 96 11/06/18 12:00 Intake & Output 09/25/18 09/26/18 09/26/18 18:59 06:59 18:59 Intake Total 50 400 236 Output Total 0 Balance 50 400 236 Weight 78.4 kg Intake: IV 50 400 D5-0.45% NaCl with KCl 50 400 20Meq/l 1,000 ml @ 50 mls /hr IV .Q20H [facility] Rx#: [id number] Oral 236 Output: Urine 0 Other: Voiding Method Toilet Toilet Toilet Bedside Commode # Voids 1 1 - Exam Head normocephalic Neck supple Lungs clear to auscultation bilaterally no wheezing or crackles Heart regular rate and rhythm S1-S2, no rub or gallop Abdomen is soft nontender nondistended positive bowel sounds no hepatosplenomegaly Extremities no edema Neuro alert and orientated to 3 - Labs CBC & Chem 7: 09/26/18 05:23 09/26/18 05:23 Labs: Abnormal Lab Results - Last 24 Hours (Table) 09/25/18 09/25/18 09/26/18 Range/Units 17:23 22:31 02:31 Glucose (74-99) mg/dL POC Glucose (mg/dL) 185 H 129 H 209 H (75-99) mg/dL Alkaline Phosphatase (38-126) U/L 09/26/18 09/26/18 Range/Units 05:23 11:29 Glucose 102 H (74-99) mg/dL POC Glucose (mg/dL) 121 H (75-99) mg/dL Alkaline Phosphatase 26 L (38-126) U/L Assessment and Plan Assessment: 1. Uncontrolled blood sugars with diabetic ketoacidosis secondary to insulin pump being used incorrectly and possibly a low battery. Blood sugar 813 acetone positive CO2 less than 5. Patient placed on insulin drip in the ER. She'll be admitted to the ICU. Dr. Ferrari will be consulted for ICU management. Continue with IV fluids. Discontinue insulin pump. Urinalysis positive for ketones. DKA has now resolved. Dr. Ferrari has added Levemir 23 units at bedtime with NovoLog 8 units scheduled 3 times a day and a NovoLog sliding scale. Episode of hypoglycemia this morning she did not receive her evening snack. Discussed with nursing staff to about providing evening snack for patient. Patient seen by cosmetology educator. Patient will be discharged on insulin. And she can follow-up with her medical i d sales discuss possibly restarting the insulin pump. Discussed with nursing staff to teach patient on how to administer insulin. 2. Acute kidney injury: Likely related to the DKA and dehydration now resolved with IV fluids. 3. Hyperkalemia: potassium 6.7 likely related to acute kidney injury and hyperglycemia. Resolved after insulin and Kayexalate given. Patient is now hypokalemic with a potassium of 3.4. She is receiving supplement potassium through the IV 4. Elevated lactic acid level of 6.8. Repeat lactic acid 6 show improvement with IV fluids. 5. Leukocytosis: Possibly related to hyperglycemia and UTI 6. Recent stroke 2 weeks ago treated at [facility]. Computed tomography scan of the brain showing acute to subacute left thalamic lacunar injury extending into the posterior limb of the internal capsule. No intracranial hemorrhage or midline shift. Neurology is following closely. They have discontinued the Plavix for further evaluation about a possible brain bleed. MRI of the brain findings as stated above as well as repeat computed tomography scan of the brain. Awaiting further recommendations per neurology and cardiology in regards to anticoagulation due to patient's stroke history and paroxysmal atrial fibrillation. 7. History of Karis's disease 8. History of paroxysmal atrial fibrillation. Patient had been on aspirin 81 mg by mouth daily prior to her stroke. Patient and daughter report that she had not been on any anticoagulation. No further episodes of atrial fibrillation. Followed by cardiology. Awaiting their recommendations regarding anticoagulation. 7. Acute metabolic encephalopathy with Altered mental status and lethargy secondary to elevated blood sugars present on admission. Now resolved 8. Hyperlipidemia continue statin 9. UTI: Continue the antibiotic urine culture negative. Anticipate discharge home soon. Awaiting further recommendations per neurology and cardiology GI prophylaxis protonix and DVT prophylaxis on hold due to possible brain bleed I performed an examination of the patient and discussed their management with the physician Vise Hand. I have reviewed the Physician Vise Hand's notes and agree with the documented findings and plan of care
[2018-09-26 16:35] LABS: Glucose,Whole Blood 267 mg/dL (75-99)
--- NOTE | 2018-09-26 16:40 | P.PN ---
Subjective Progress Note Date: 09/26/18 This patient is a 63-year-old female with a history of type 1 diabetes mellitus on insulin pump. Patient suffered a recent stroke about 2 weeks ago and was admitted to [facility] where she was treated. We did request records yesterday but these are still pending from this hospital. Patient underwent a computed tomography scan of the brain yesterday which revealed evidence of a left thalamic lesion. She was recommended to have MRI of the brain today which was completed and read by Dr. Noguera. The MRI reveals evidence of a 1.9 cm lesion in the left thalamus which does not represent acute ischemia. This may be related to previous bleeding. A postcontrast MR was suggested. We have recommended the MRI of the brain to be done with contrast tomorrow morning. Anticoagulation has been placed on hold until this MRI has been completed. We did obtain medical records for [facility] where the patient was transferred following her initial stroke findings on 09/09. Patient was given TPA and transferred to [facility] for neuro interventional evaluation and treatment. We did obtain the medical records from [facility] yesterday. Patient underwent an MRI of the brain on 09/14/2018 results of which indicated a 12 mm focus of acute/ subacute ischemia in the left lyn. Patient also had a computed tomography scan of the brain performed on 09/10/2018 after she was transferred to [facility] and this CAT scan revealed focal ischemia in the left thalamus. There appears to be discrepancy on the MRI studies between [facility] and MRI of the brain that was done here at [facility] on 2017 and revealed a 1.9 cm lesion in the left thalamus which does not represent acute ischemia. Radiologist stated this may be related to previous bleeding. Based on the 2 discrepancies on both MRI studies of the brain we have recommended MRI of the brain to be done with gadolinium tomorrow morning and the films are to be reviewed personally by myself and the radiologist so that comparison scan be made. This patient likely will require long-term anticoagulation however a decision to proceed will be given only after her MRI studies have all been reviewed and there is no evidence to suggest underlying intracranial hemorrhage either past or present. Case will be discussed tomorrow with cardiology in regards to anticoagulation. The patient yesterday was showing clear signs of metabolic encephalopathy. She had evidence of uncontrolled hyperglycemia. Her blood sugars were size 813 and her acetone was positive. She was started on insulin drip yesterday. Today the patient is more alert and oriented. She does not appear to be in any distress. She denies any headache or fever. At this time given her MRI findings we have recommended that the Plavix be placed on hold until the MR of the brain with contrast study is done. We are still awaiting all of her records to be sent for [facility] so that exact findings at that time could be reviewed. We did discuss the MRI findings today with Dr. Keenan and at this point we have recommended to place her Plavix on hold until further information is obtained. Patient was seen by cardiology today and Dr. Guzman is recommending echocardiogram Doppler to be done. Patient has a history of paroxysmal atrial fibrillation which was found on a documentation from 2015. Patient was seen today by cardiology and Dr. Guzman is recommending given her history of paroxysmal atrial fibrillation and recent stroke that anticoagulation is indicated. We will discuss with Dr. Guzman the need for anticoagulation for this patient. Further history was obtained from the patient today bedside. Apparently she has been following with the cardiologists in [facility] on a regular basis. She is not aware of her cardiologists mentioning any past history of paroxysmal atrial fibrillation. We have also had the patient go for a repeat MRI of the brain with gadolinium today. This MRI study done on 09/25/2018 with gadolinium reveals a ring-enhancing lesion within the left thalamus. This finding raises the possibility of multiple differential diagnosis including brain tumor, brain abscess, demyelination, or stroke variation. This MRI films were reviewed today by myself and Dr. Carlos from the radiology department. We did recommend to have a computed tomography scan of the brain done today as well to rule out any possibility of hemorrhage. This was done on 09/25/2018 and reveals hypodensity in the left thalamus consistent with subacute infarct with no change compared to her recent exam. The patient clinically was examined today at bedside and is doing much better in terms of her overall mental status. She is much more alert and oriented and able to answer all questions appropriately today. Her neurological examination reveals mild right-sided hemiparesis which also is improving with time. Given the finding of possibility of brain abscess on this MRI study we did recommend a consultation with Dr. Alcala from infectious disease. Dr. Alcala did see the patient today and feels that brain abscess is very low on his suspicion for this ring- enhancing lesion on the MRI of the brain. We did discuss with Dr. Alcala today over the telephone at length the MRI findings. He has spoken with Dr. Milton in the radiology department to is going to obtain all of the MRI studies done on this patient at [facility] as well as here and he will give a final interpretation of these MRI test results. Clinically the patient is shown significant improvement today in terms of her mental status. We are holding off on anticoagulation at this time and will discuss this further with Dr. Guzman tomorrow morning. Dr. Carlos review the MRI of the brain done today and there does not appear to be any evidence of acute stroke on diffusion- weighted imaging. This raises the question whether this lesion is an acute stroke or some form of infectious etiology or otherwise. At this point we will hold off on anticoagulating the patient and will discuss this further with Dr. Guzman tomorrow. We recommended she remain in the ICU one further day unless a bed is needed for which she could be transferred to the third floor. Her overall prognosis at this time remains guarded. Patient is remaining on a DKA protocol and her encephalopathy is showing improvement. This patient's significant improvement in her mental status today suggests that she had a severe form of metabolic encephalopathy from her hyperglycemia. Now that her blood sugars are under much better control she seems to be back to baseline. It is still very much unclear why the patient had difficulty using her insulin pump recently as she has been using the pump for over 12 years. We will continue to monitor her mental status closely during this admission. This case was discussed at length today with Dr. Alcala. The patient has had no fevers or leukocytosis consequently brain abscess seems to be distinctly unlikely as per Dr. Alcala. He is recommending serologies to be done for further evaluation of toxoplasmosis. Lumbar puncture is not indicated at this time as per Dr. Alcala. Patient clearly is showing significant improvement in her mental status today. She does not appear to be toxic in any way. She was transferred out of the intensive care unit yesterday evening. She has been up and ambulating without assistance. We did discuss today this patient's neurological findings in detail with Dr. Guzman. We reviewed all of the MRI and CAT scan results and are now recommending Dr. Guzman to consider starting her with anticoagulation for treatment of her paroxysmal atrial fibrillation. He states he will initiate anticoagulation for her as soon as possible today. There was no evidence of any hemorrhage on her recent MRIs her most recent CAT scan of the brain that was done yesterday. We are still working up the etiology of the left thalamic lesion and multiple specialists are involved. We will continue close neurological follow-up for the patient during this admission. Overall prognosis remains guarded. Objective - Vital Signs Vital signs: Vital Signs Temp 98.6 F 09/26/18 16:00 Pulse 78 09/26/18 16:00 Resp 14 09/26/18 16:00 BP 131/79 09/26/18 16:00 Pulse Ox 97 09/26/18 16:00 Intake & Output 09/25/18 09/26/18 09/26/18 18:59 06:59 18:59 Intake Total 50 400 1016 Output Total 0 Balance 50 400 1016 Weight 78.4 kg Intake: IV 50 400 100 D5-0.45% NaCl with KCl 50 400 100 20Meq/l 1,000 ml @ 50 mls /hr IV .Q20H [facility] Rx#: [id number] Oral 916 Output: Urine 0 Other: Voiding Method Toilet Toilet Toilet Bedside Commode # Voids 1 1 - Exam Physical examination: PHYSICAL EXAMINATION: Patient is resting comfortably in bed. VITAL SIGNS: Blood pressure is [122/60]. Heart rate is [70]. Respiration is [16] . Temperature is [97.1]. HEENT: Head is atraumatic, neck is supple, there were no carotid bruits. CHEST: Lungs are clear to auscultation and percussion. CARDIAC: S1, S2 normal rate and rhythm. There is no murmur. ABDOMEN: Soft and nontender. Bowel sounds are present. EXTREMITIES: There is no pedal edema. Peripheral pulses are present. Neurological examination: Patient's neurological examination shows improvement in her mental status as compared to yesterday. The patient is much more awake and alert and able to answer all questions appropriately. This is significant improvement in her mental status as compared to yesterday's neurological examination. Cranial nerves II through XII are grossly intact. Motor examination reveals slight right pronator drift. Sensory examination was intact. Deep tendon reflexes are 1+ and symmetric. Plantar responses flexor bilaterally. Coordination and gait cannot be assessed in this patient at this time. Patient has been up and ambulating without any difficulties today. - Labs CBC & Chem 7: 09/26/18 05:23 09/26/18 05:23 Labs: Abnormal Lab Results - Last 24 Hours (Table) 09/25/18 09/25/18 09/26/18 Range/Units 17:23 22:31 02:31 Glucose (74-99) mg/dL POC Glucose (mg/dL) 185 H 129 H 209 H (75-99) mg/dL Alkaline Phosphatase (38-126) U/L 09/26/18 09/26/18 Range/Units 05:23 11:29 Glucose 102 H (74-99) mg/dL POC Glucose (mg/dL) 121 H (75-99) mg/dL Alkaline Phosphatase 26 L (38-126) U/L Assessment and Plan (1) Acute ischemic left MCA stroke Current Visit: Yes Status: Acute Code(s): I63.512 - CEREB INFRC D/T UNSP OCCLS OR STENOS OF LEFT MID CEREB ART SNOMED Code(s): 418348672 (2) Diabetic ketoacidosis Current Visit: Yes Status: Acute Code(s): E13.10 - OTH DIABETES MELLITUS WITH KETOACIDOSIS WITHOUT COMA SNOMED Code(s): 687272670 (3) Dehydration Current Visit: Yes Status: Acute Code(s): E86.0 - DEHYDRATION SNOMED Code( s): 18488989 (4) History of CVA (cerebrovascular accident) Current Visit: Yes Status: Acute Code(s): Z86.73 - PRSNL HX OF TIA (TIA), AND CEREB INFRC W/O RESID DEFICITS SNOMED Code(s): 336463914 (5) Hyperosmolarity due to secondary diabetes mellitus Current Visit: Yes Status: Acute Code(s): E13.00 - OTH DIAB W HYPROSM W/O NONKET HYPRGLY-HYPROS COMA ([facility]) SNOMED Code(s): 74641566 Plan: This patient is a 63-year-old female initially seen at [facility] back on 09/09/2018 at which time she was diagnosed as having suffered an acute stroke. She was given TPA and then transferred to the neuro intensive care unit at [facility]. She underwent a MRI study there which revealed her to have suffered a acute left pontine infarct. She was discharged after 5-7 days to home. She was coming along fairly well until September 22 when she developed severe uncontrolled diabetes mellitus. Patient had a blood sugar of 813. She has been using a insulin pump but for whatever reason she became very confused and was not properly adjusting her insulin requirements. She was brought into the emergency room on 09/22/2018 and was admitted to Hospital. She underwent an initial computed tomography scan and subsequent MRI scan of the brain which revealed a left thalamic lesion. She was sent for MRI of the brain with gadolinium today the results of which are noted above. MRI reveals a ring-enhancing lesion in the left thalamus. The differential diagnosis is as discussed above. We did contact Dr. Alcala today who has a very low suspicion that this lesion represents a brain abscess. He will go into further evaluation for other possible infectious causes. Dr. Alcala's order toxoplasmosis serology to be done for her. This seems to be unlikely cause of the ring-enhancing lesion that was noted on her MRI of the brain. Her MRI of the brain performed with gadolinium today failed to reveal any evidence of acute stroke on diffusion-weighted imaging in the left thalamus. This raises the question that this lesion may not represent a acute or subacute infarction. Dr. Alcala had a long discussion with the radiologist Dr. Milton yesterday who had to make some addendum's to his recent MRI report. He will also contact the radiology department at [facility] to obtain the MRI disc so that he can give a interpretation of all of these findings in a concise manner. At this point we will need to discuss with cardiology and Dr. Guzman the need for anticoagulation of this patient given this rather complex MRI findings. We did discuss today with Dr. Guzman the results of her MRI findings. We did do a repeat computed tomography scan of the brain yesterday which came back negative for any evidence of hemorrhage. At this time we are recommending the patient could be started on anticoagulation given her history of paroxysmal atrial fibrillation [place] [address] Guzman is in full agreement and he will initiate anticoagulation for this patient later today. We will await further follow-up from Dr. Milton in regards to the interpretation of all of these MRI studies that have been done on this patient. Neurologically the patient is doing quite well today and continues to show significant improvement in her overall mental status. She likely had a severe metabolic encephalopathy due to the uncontrolled diabetes and severe hyperglycemia. She is now doing much better with her diabetic control as well. The patient clinically showing significant improvement in her mental status today. We will continue to follow her progress closely during this admission along with multiple specialists that her seeing her. Overall prognosis at this time remains guarded.
[2018-09-26] MEDS: LEVOFLOXACIN 250 MG TAB PO SCH (17:11)
[2018-09-26] MEDS: ATORVASTATIN 40 MG TAB PO SCH (20:10)
[2018-09-26] MEDS: APIXABAN 5 MG TAB PO SCH (20:10)
[2018-09-26 20:19] LABS: Glucose,Whole Blood 122 mg/dL (75-99)
[2018-09-26] MEDS: INSULIN DETEMIR 100 UNIT/ML 10 ML VIAL SQ SCH (20:22)
--- NOTE | 2018-09-26 22:40 | P.PN ---
Subjective Progress Note Date: 09/26/18 63-year-old female [facility] September when her family found her to have significant alteration of her mental status. The patient is a very significant pertinent recent past medical history 09/09/2018 she at that time had significant alteration of her mental status and had noticed some weakness. She was brought to the emergency center and with her localizing signs or was concerns to a new stroke. The stroke network was initiated and TPA was given and she was transferred to the outside hospital. His related that the imaging studies there did confirm stroke although there has been some discussion as to the actual location of the stroke. She apparently improved and was a home setting, she relates she has an insulin pump and may have stopped working. She then had the significant worsening of her mental status and upon the admission. Evidence of blood sugar greater than 812 ans was acetone positive. With this it was thought that the DKA was responsible for her altered mental status and with treatment of her extensive metabolic abnormalities she's had some improvement to her neurological status. She over did have imaging study again repeated an MRI was with some ongoing marked abnormalities. This is directly reviewed with the radiologist. The patient recalls no fevers or chills. She's not been having severe headache. Neurologically she was showing some improvement until the acute change at the time of this admission with the profound metabolic abnormalities. At this time she sitting upright. She is awake and alert and is able to eat some of her dinner although does not like how it tasted. Her mentation is clear and she is pleased that she has had improvement. 09/26/2018 reveals the patient to be much more awake alert and interactive. She is comfortable with his eating part of her dinner. Objective - Vital Signs Vital signs: Vital Signs Temp 98.0 F 09/26/18 20:00 Pulse 91 09/26/18 20:00 Resp 16 09/26/18 20:00 BP 131/69 09/26/18 20:00 Pulse Ox 95 09/26/18 20:00 Intake & Output 09/26/18 09/26/18 09/27/18 06:59 18:59 06:59 Intake Total 400 1016 Balance 400 1016 Weight 78.4 kg Intake: IV 400 100 D5-0.45% NaCl with KCl 400 100 20Meq/l 1,000 ml @ 50 mls /hr IV .Q20H INDIRA Rx#: [id number] Oral 916 Other: Voiding Method Toilet Toilet Toilet # Voids 1 - Exam 63-year-old woman sitting upright in a chair, mentation is clear, has her dinner tray HEENT: Anicteric conjunctiva are pink and moist nasal mucosa grossly intact without significant lesions, there is no thrush. Neck: The neck is supple without significant lymphadenopathy or thyromegaly. Lungs: Good bilateral air entry without significant crackles or wheezing. There is no significant bronchial sounds. There is no egophony or dullness. Heart: Regular rate and rhythm with an audible S1-S2, no S3 no S4. There is no significant murmur click or rub, PMI was nondisplaced. Abdomen: Positive bowel sounds soft and nontender without palpable masses or organomegaly. There was no guarding or rebound. Extremities: The upper extremities have excellent pulses they are symmetric, no significant petechiae or telangiectasia. No splinter hemorrhages were noted. The lower extremities are free from significant edema. The peripheral pulses were 2+ and symmetric. Neuro: Awake alert oriented to person place and time. There are no acute new gross focal sensory motor deficits. - Labs CBC & Chem 7: 09/26/18 05:23 09/26/18 05:23 Labs: Abnormal Lab Results - Last 24 Hours (Table) 09/26/18 09/26/18 09/26/18 Range/Units 02:31 05:23 11:29 Glucose 102 H (74-99) mg/dL POC Glucose (mg/dL) 209 H 121 H (75-99) mg/dL Alkaline Phosphatase 26 L (38-126) U/L 09/26/18 09/26/18 Range/Units 16:22 20:17 Glucose (74-99) mg/dL POC Glucose (mg/dL) 267 H 122 H (75-99) mg/dL Alkaline Phosphatase (38-126) U/L Microbiology - Last 24 Hours (Table) 09/25/18 15:13 Blood Culture - Preliminary Blood No Growth after 24 hours 09/25/18 15:04 Blood Culture - Preliminary Blood No Growth after 24 hours Laboratory Results WBC 5.1 k/uL (3.8-10.6) 09/26/18 05:23 RBC 4.22 m/uL (3.80-5.40) 09/26/18 05:23 Hgb 12.9 gm/dL (11.4-16.0) 09/26/18 05:23 Hct 36.6 % (34.0-46.0) 09/26/18 05:23 MCV 86.7 fL (80.0-100.0) 09/26/18 05:23 MCH 30.7 pg (25.0-35.0) 09/26/18 05:23 MCHC 35.4 g/dL (31.0-37.0) 09/26/18 05:23 RDW 13.1 % (11.5-15.5) 09/26/18 05:23 Plt Count 198 k/uL (150-450) 09/26/18 05:23 Neutrophils % 68 % 09/26/18 05:23 Lymphocytes % 25 % 09/26/18 05:23 Monocytes % 5 % 09/26/18 05:23 Eosinophils % 1 % 09/26/18 05:23 Basophils % 0 % 09/26/18 05:23 Neutrophils # 3.5 k/uL (1.3-7.7) 09/26/18 05:23 Lymphocytes # 1.3 k/uL (1.0-4.8) 09/26/18 05:23 Monocytes # 0.3 k/uL (0-1.0) 09/26/18 05:23 Eosinophils # 0.0 k/uL (0-0.7) 09/26/18 05:23 Basophils # 0.0 k/uL (0-0.2) 09/26/18 05:23 Hypochromasia Marked 09/22/18 12:22 PT 10.3 sec (9.0-12.0) 09/22/18 12:22 INR 1.1 (<1.2) 09/22/18 12:22 APTT 22.4 sec (22.0-30.0) 09/22/18 12:22 VBG pH 7.11 (7.31-7.41) L* 09/22/18 16:24 VBG pCO2 22 mmHg (37-51) L 09/22/18 16:24 VBG HCO3 7 mmol/L (24-28) L* 09/22/18 16:24 Sodium 139 mmol/L (137-145) 09/26/18 05:23 Potassium 3.5 mmol/L (3.5-5.1) 09/26/18 05:23 Chloride 105 mmol/L (98-107) 09/26/18 05:23 Carbon Dioxide 28 mmol/L (22-30) 09/26/18 05:23 Anion Gap 6 mmol/L 09/26/18 05:23 BUN 7 mg/dL (7-17) 09/26/18 05:23 Creatinine 0.60 mg/dL (0.52-1.04) 09/26/18 05:23 Est GFR (CKD-EPI)AfAm >90 (>60 ml/min/1.73 sqM) 09/26/18 05:23 Est GFR (CKD-EPI)NonAf >90 (>60 ml/min/1.73 sqM) 09/26/18 05:23 Glucose 102 mg/dL (74-99) H 09/26/18 05:23 POC Glucose (mg/dL) 122 mg/dL (75-99) H 09/26/18 20:17 POC Glu Soa Engineer ID Dinorah Painter 09/26/18 20:[address] Glu mg/dL 214 09/22/18 12:22 Hemoglobin A1c 9.1 09/22/18 12:22 Osmolality 347 mosm/kg (280-301) H* 09/22/18 12:22 Lactic Ac Sepsis Rflx Y 09/22/18 13:05 Plasma Lactic Acid Apolinar 1.4 mmol/L (0.7-2.0) 09/23/18 04:33 Calcium 9.3 mg/dL (8.4-10.2) 09/26/18 05:23 Phosphorus 1.8 mg/dL (2.5-4.5) L 09/24/18 04:29 Magnesium 2.1 mg/dL (1.6-2.3) 09/23/18 04:33 Total Bilirubin 0.6 mg/dL (0.2-1.3) 09/26/18 05:23 AST 22 U/L (14-36) 09/26/18 05:23 ALT 25 U/L (9-52) 09/26/18 05:23 Alkaline Phosphatase 26 U/L (38-126) L 09/26/18 05:23 Total Creatine Kinase 34 U/L (30-135) 09/22/18 12:22 CK-MB (CK-2) 0.8 ng/mL (0.0-2.4) 09/22/18 12:22 CK-MB (CK-2) Rel Index 2.4 09/22/18 12:22 Troponin I <0.012 ng/mL (0.000-0.034) 09/22/18 12:22 Total Protein 6.7 g/dL (6.3-8.2) 09/26/18 05:23 Albumin 3.5 g/dL (3.5-5.0) 09/26/18 05:23 Triglycerides 68 mg/dL (<150) 09/23/18 04:33 Cholesterol 115 mg/dL (<200) 09/23/18 04:33 LDL Cholesterol, Calc 52 mg/dL (0-99) 09/23/18 04:33 HDL Cholesterol 49 mg/dL (40-60) 09/23/18 04:33 TSH 1.010 mIU/L (0.465-4.680) 09/22/18 14:36 Urine Color Yellow 09/22/18 00:00 Urine Appearance Cloudy (Clear) H 09/22/18 00:00 Urine pH 5.0 (5.0-8.0) 09/22/18 00:00 Ur Specific [place] 1.016 (1.001-1.035) 09/22/18 00:00 Urine Protein 1+ (Negative) H 09/22/18 00:00 Urine Glucose (UA) 4+ (Negative) H 09/22/18 00:00 Urine Ketones 3+ (Negative) H 09/22/18 00:00 Urine Blood Trace (Negative) H 09/22/18 00:00 Urine Nitrite Negative (Negative) 09/22/18 00:00 Urine Bilirubin Negative (Negative) 09/22/18 00:00 Urine Urobilinogen <2.0 mg/dL (<2.0) 09/22/18 00:00 Ur Leukocyte Esterase Moderate (Negative) H 09/22/18 00:00 Urine RBC 1 /hpf (0-5) 09/22/18 00:00 Urine WBC 23 /hpf (0-5) H 09/22/18 00:00 Ur Squamous Epith Cells 3 /hpf (0-4) 09/22/18 00:00 Urine Bacteria Rare /hpf (None) H 09/22/18 00:00 Urine Mucus Rare /hpf (None) H 09/22/18 00:00 Acetone, Qual Positive (Negative) 09/22/18 12:22 Microbiology 09/25/18 15:13 Blood Blood Culture - Preliminary No Growth after 24 hours 09/25/18 15:04 Blood Blood Culture - Preliminary No Growth after 24 hours 09/23/18 00:00 Urine,Catheterized Urine Culture - Final - Imaging and Cardiology MRI - head: image reviewed (MRI is reviewed with the radiologist. Outside films and become available. There is evidence of the ischemic changed to the films correlating well with the patient's finding of a right thalmic stroke.) Assessment and Plan (1) Hyperosmolarity due to secondary diabetes mellitus Narrative/Plan: 63-year-old female presents to hospital with altered mental status, has a very pertinent recent past medical history with a presentation to hospital with altered mental status. At that time there were concerns because of some lateralizing signs of a stroke and she was transferred to the neurosurgical center and received TPA. The imaging studies performed at this facility are evaluated and the radiologist is contacted. First there is some discrepancy in size which we've further characterize. In addition appear that they were not aware of the outside imaging from around 09/09/2018 which may further help characterize the current abnormalities are being seen on the MRI. The follow-up computed tomography scan appears to confirm the recent stroke. Neurology has significant concerns given the findings on the MRI and symmetric enhancement since being seen. The patient has no fevers or leukocytosis and consequently brain abscess seems to be distinctly unlikely. It is still most likely that this was a deep thalmic stroke however serologies for toxoplasmosis can be performed. Without initiate any type of antibiotic therapy at this point in time. Lumbar puncture is not indicated at this time until we have further results of the imaging studies. The case is discussed with neurology. 09/26/2018 patient is improved even further. Imaging studies reveal evidence of the stroke without evidence of brain abscess or concerns to other etiology such as tumor or toxoplasmosis. No need for antimicrobial therapy. Current Visit: Yes Status: Acute Code(s): E13.00 - OTH DIAB W HYPROSM W/O NONKET HYPRGLY-HYPROS COMA ([facility]) SNOMED Code(s): 38660088 (2) Thalamic stroke Current Visit: Yes Status: Acute Code(s): I63.9 - CEREBRAL INFARCTION, UNSPECIFIED SNOMED Code(s): 898544466
[2018-09-27 02:05] LABS: Glucose,Whole Blood 111 mg/dL (75-99)
[2018-09-27] MEDS: INSULIN ASPART 100 UNIT/ML 1 ML 10 ML VIAL SQ SCH ×8 (02:05→20:35)
[2018-09-27 05:44] LABS: Glucose,Whole Blood 79 mg/dL (75-99)
[2018-09-27 06:31] LABS: Basophils % (A) 0 %; Eosinophils # (A) 0.1 k/uL (0-0.7); Eosinophils % (A) 1 %; HCT 34.8 % (34.0-46.0); HGB 11.9 gm/dL (11.4-16.0); Lymphocytes # (A) 1.4 k/uL (1.0-4.8); Lymphocytes % (A) 29 %; MCH 29.9 pg (25.0-35.0); MCHC 34.3 g/dL (31.0-37.0); MCV 87.1 fL (80.0-100.0); Mean Platelet Volume 7.3; Monocytes # (A) 0.3 k/uL (0-1.0); Monocytes % (A) 5 %; Neutrophils % (A) 62 %; Platelet Count 199 k/uL (150-450); RDW 13.2 % (11.5-15.5); WBC 4.9 k/uL (3.8-10.6)
[2018-09-27 06:56] LABS: ALT 25 U/L (9-52); AST 18 U/L (14-36); Albumin 3.1 g/dL (3.5-5.0); Alkaline Phosphatase 27 U/L (38-126); Anion Gap 6 mmol/L; Blood Urea Nitrogen 11 mg/dL (7-17); Carbon Dioxide 29 mmol/L (22-30); Chloride 104 mmol/L (98-107); Glucose 82 mg/dL (74-99); Potassium 3.4 mmol/L (3.5-5.1); Sodium 139 mmol/L (137-145); Total Bilirubin 0.6 mg/dL (0.2-1.3); Total Protein 6.2 g/dL (6.3-8.2)
[2018-09-27] MEDS: LEVOTHYROXINE 75 MCG TAB PO SCH (07:06)
[2018-09-27] MEDS: PANTOPRAZOLE 40 MG TABLET PO SCH (07:06)
[2018-09-27] MEDS: METOPROLOL TARTRATE 25 MG TAB PO SCH ×2 (09:19→19:55)
[2018-09-27] MEDS: POTASSIUM CHLORIDE ER 20 MEQ TAB.ER PO SCH ×3 (09:19→15:14)
[2018-09-27] MEDS: APIXABAN 5 MG TAB PO SCH ×2 (09:19→19:55)
--- NOTE | 2018-09-27 10:55 | PN ---
PROGRESS NOTE Mrs. Mauricio is a 63-year-old female with a history of paroxysmal fibrillation who presented with cerebrovascular accident. She had history of hypertension, has received tPA 2 weeks ago. She was admitted at this time with diabetic ketoacidosis and change in mental status and metabolic encephalopathy. She is awake, alert at this time. Her breathing is stable. She is denying any chest pain. No dizziness. No palpitation. No nausea. I reviewed her case with Dr. Oropeza yesterday who felt that she is stable to receive anticoagulation. She was started on Eliquis 5 mg twice a day. She is on Lipitor 40 mg daily, insulin, metoprolol tartrate 25 mg twice a day. PHYSICAL EXAMINATION: Blood pressure 115/60 with the heart rate in the 90s. LUNGS: Clear. HEART: Regular rate and rhythm. S1, S2. No S3. No rub with a systolic murmur. ABDOMEN: Soft, nontender. EXTREMITIES: No edema. LAB DATA: Lab data revealed a BUN and creatinine of 11 and 0.69. Potassium 3.4. Hemoglobin of 11.9. IMPRESSION: 1. Recent cerebrovascular accident, received tPA. 2. Paroxysmal atrial fibrillation continues to be in sinus mechanism. 3. Diabetes mellitus with diabetic ketoacidosis resolved. RECOMMENDATION: From the cardiac standpoint, she is stable. She will continue present therapy. I would expect she should be able to be discharged home soon and followed as an outpatient with Dr. Goodson. We will see her on an as-needed basis. Please feel free to call us for any question. MMODL / IJN: [id number] /
[2018-09-27 11:11] LABS: Glucose,Whole Blood 67 mg/dL (75-99)
[2018-09-27 11:24] LABS: Glucose,Whole Blood 77 mg/dL (75-99)
[2018-09-27] MEDS ORDERED: Potassium Replacement Protocol 1 EACH MISC MISCELLANE PRN (12:38)
--- NOTE | 2018-09-27 12:41 | P.PN ---
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 Patient was brought into the emergency room due to increasing confusion and lethargy with elevated blood sugar. Daughter called EMS and EMS reported a blood sugar of 563. Patient was given IV fluids and Route. According to the patient's daughter patient had a stroke about 2 weeks ago. She was admitted to [facility] at that time. She was there for about a week. Her daughter patient had about a 90% recovery. At home patient was taking care of her own insulin pump. On over the last 2 days the daughter noted that her mom was having difficulty managing her insulin pump and medications. The insulin pump battery went low and also it was time to replace insulin. Patient's daughter was unaware of how to use the pump. She tried to check her mother's blood sugar had difficulty with this. She felt that the sugars maybe be low and started to give her PE her mom orange juice. She reports that her mom was very confused and lethargic. Cannot even sit up in a chair. She had loss of bladder control. In the ER she was found to have a glucose of 813 acetone was positive. She has been started on insulin drip. Discussed with ER physician insulin pump will be removed. White count 15.3 sodium 136 potassium 6.7 chloride 97 CO2 less than 5 and anion gap unable calculated BUN 34 creatinine 1.9 for lactic acid 6.8. Patient is receiving IV fluid boluses. She is currently on normal saline at 100 mL an hour. And also on insulin drip. Patient will be admitted to the ICU. Dr. Santiago will be consulted for ICU management. Computed tomography scan of the brain shows an acute subacute traumatic lacunar injury extending into the posterior limb. Neurology will be consulted. Patient is lethargic. She is arousable. She is alert and orientated to name and place. She did not know the year. She did not know her daughter's name. She denies any chest pain or shortness of breath. Denies any nausea or vomiting. Denies any fevers chills or sweats. Denies any bowel movement changes or urinary symptoms. Patient does have an plasterer spray gun that she follows outpatient. Patient also has had decrease in appetite has not been eating and drinking well at home. On 09/23/2018 patient is alert and oriented 3 in no apparent distress she denies any pain or discomfort at this time there is no fever or chills no headache or dizziness no chest pain no shortness of breath no cough no nausea or vomiting no abdominal pain no diarrhea and no urinary symptoms Buck catheter is in. Labs are improving with creatinine down to 1.23 lactic acid down to 1.4 white blood count down to 12 point On 09/24/2018 patient was seen and examined in the ICU today, she is more alert and oriented, she denies any complaints at this time, there is no fever or chills no headache or dizziness no chest pain no shortness of breath or cough no nausea or vomiting no abdominal pain no diarrhea and no urinary symptoms 09/25/2018 patient is awake and alert sitting up in bed. Still has poor appetite. Blood sugar 196 this morning. Potassium is 3.4 and being replaced. She is scheduled for a repeat MRI of the brain with contrast for further evaluation about a possible brain bleed. 09/26/2018 patient transferred out of the ICU yesterday. She did have a low blood sugar of 88 this morning. She did not receive an evening snack. She was in the transition of moving from ICU to the telemetry floor. Otherwise blood sugars have shown great improvement with the insulin. Awaiting further recommendations per neurology and cardiology in regards to anticoagulation due to her history of paroxysmal atrial fibrillation and stroke. MRI of the brain does show a ring enhancing lesion within the left thalamus possible small secondary focus findings could represent tumors, correlate to exclude abscess, demyelination and hemorrhage felt less likely. Repeat computed tomography scan of the brain shows hypodensity in the left thalamus consistent with subacute infarct. Patient seen by infectious disease they are not recommending a lumbar puncture. Infectious disease also evaluated patient and felt that brain abscess to be unlikely. Patient has no new complaints. She has been up and ambulating without assistance. Denies any chest pain or shortness of breath. Reports regular bowel movements. Denies any difficulty urinating. On 09/27/2018 patient is currently resting comfortably in room. Patient is alert and oriented 3 in no apparent distress. Patient denies chest pain or shortness of breath. Patient denies any urinary burning or frequency. Patient denies any nausea vomiting or diarrhea. She has been started back on anticoagulation per neuro and cardiology services. Objective - Vital Signs Vital signs: Vital Signs Temp 97.9 F 09/27/18 08:00 Pulse 90 09/27/18 08:00 Resp 16 09/27/18 08:00 BP 115/66 09/27/18 08:00 Pulse Ox 94 L 09/27/18 08:00 Intake & Output 09/26/18 09/27/18 09/27/18 18:59 06:59 18:59 Intake Total 1016 190 Balance 1016 190 Weight 78.2 kg Intake: IV 100 10 D5-0.45% NaCl with KCl 100 20Meq/l 1,000 ml @ 50 mls /hr IV .Q20H INDIRA Rx#: [id number] Invasive Line 3 10 Oral 916 180 Other: Voiding Method Toilet Toilet Toilet # Voids 1 - Exam Head normocephalic Neck supple Lungs clear to auscultation bilaterally no wheezing or crackles Heart regular rate and rhythm S1-S2, no rub or gallop Abdomen is soft nontender nondistended positive bowel sounds no hepatosplenomegaly Extremities no edema Neuro alert and orientated to 3 - Labs CBC & Chem 7: 09/27/18 05:33 09/27/18 05:33 Labs: Abnormal Lab Results - Last 24 Hours (Table) 09/26/18 09/26/18 09/27/18 Range/Units 16:22 20:17 02:02 Potassium (3.5-5.1) mmol/L POC Glucose (mg/dL) 267 H 122 H 111 H (75-99) mg/dL Alkaline Phosphatase (38-126) U/L Total Protein (6.3-8.2) g/dL Albumin (3.5-5.0) g/dL 09/27/18 09/27/18 Range/Units 05:33 11:07 Potassium 3.4 L (3.5-5.1) mmol/L POC Glucose (mg/dL) 67 L (75-99) mg/dL Alkaline Phosphatase 27 L (38-126) U/L Total Protein 6.2 L (6.3-8.2) g/dL Albumin 3.1 L (3.5-5.0) g/dL Microbiology - Last 24 Hours (Table) 09/25/18 15:13 Blood Culture - Preliminary Blood No Growth after 24 hours 09/25/18 15:04 Blood Culture - Preliminary Blood No Growth after 24 hours Assessment and Plan Assessment: 1. Uncontrolled blood sugars with diabetic ketoacidosis secondary to insulin pump being used incorrectly and possibly a low battery. Blood sugar 813 acetone positive CO2 less than 5. Patient placed on insulin drip in the ER. She'll be admitted to the ICU. Dr. Ferrari will be consulted for ICU management. Continue with IV fluids. Discontinue insulin pump. Urinalysis positive for ketones. DKA has now resolved. Dr. Ferrair has added Levemir 23 units at bedtime with NovoLog 8 units scheduled 3 times a day and a NovoLog sliding scale. Episode of hypoglycemia this morning she did not receive her evening snack. Discussed with nursing staff to about providing evening snack for patient. Patient seen by personal development educator. Patient will be discharged on insulin. And she can follow-up with her plasterer spray gun discuss possibly restarting the insulin pump. Discussed with nursing staff to teach patient on how to administer insulin. 2. Acute kidney injury: Likely related to the DKA and dehydration now resolved with IV fluids. 3. Hyperkalemia: potassium 6.7 likely related to acute kidney injury and hyperglycemia. Resolved after insulin and Kayexalate given. Patient is now hypokalemic with a potassium of 3.4. Potassium replaced per protocol 4. Elevated lactic acid level of 6.8. Repeat lactic acid 6 show improvement with IV fluids. 5. Leukocytosis: Possibly related to hyperglycemia and UTI 6. Recent stroke 2 weeks ago treated at [facility]. Computed tomography scan of the brain showing acute to subacute left thalamic lacunar injury extending into the posterior limb of the internal capsule. No intracranial hemorrhage or midline shift. Neurology is following closely. They have discontinued the Plavix for further evaluation about a possible brain bleed. MRI of the brain findings as stated above as well as repeat computed tomography scan of the brain. Per neurology and cardiology services anticoagulation will be initiated.. Awaiting further follow-up from Dr. Milton regards interpretation of all the MRI studies have been done for this patient per neurology 7. History of Karis's disease 8. History of paroxysmal atrial fibrillation. Patient had been on aspirin 81 mg by mouth daily prior to her stroke. Patient and daughter report that she had not been on any anticoagulation. No further episodes of atrial fibrillation. Followed by cardiology. Awaiting their recommendations regarding anticoagulation. 7. Acute metabolic encephalopathy with Altered mental status and lethargy secondary to elevated blood sugars present on admission. Now resolved 8. Hyperlipidemia continue statin 9. UTI: Continue the antibiotic urine culture negative. Anticipate discharge home soon. Awaiting further recommendations per neurology and cardiology GI prophylaxis protonix and DVT prophylaxis maritza I performed an examination of the patient and discussed their management with the Nurse Practitioner. I have reviewed the Nurse Practitioner's notes and agree with the documented findings and plan of care
--- NOTE | 2018-09-27 13:20 | CDI ---
Last Revision, October 2017 Documentation Clarification Form Date: 09/27/18 From: Jody Raya RN Admit Date: 09/22/2018 4:35:00 PM Patient Name: Madison Mauricio Visit Number: [id number] ATTENTION: The Clinical Documentation Specialists (CDI) and [facility] Coding Staff appreciate your assistance in clarifying documentation. Please respond to the clarification below the line at the bottom and electronically sign. The CDI & [facility] Coding staff will review the response and follow-up if needed. Please note: Queries are made part of the Legal Health Record. If you have any questions, please contact the author of this message via ITS. Nadiya Finley MD, Conflicting documentation has been found in the medical record. ED note states history of CVA, H&P recent CVA, Consult 09/22 history of CVA. PN 09/23 HX of CVA On 09/23 in the consult note it states "possible recurrent CVA". PN 09/24: principal diagnosis acute diabetic ketoacidosis, subacute CVA. PN 09/24, HX of CVA, 09/25 PN subacute CVA. 09/27 Recent CVA. Patient admitted with HYPERGLYCEMIA, diabetic ketoacidosis, hyperosmolarity, dehydration History/Risk Factors: A FIB, DM, thyroid disorder, donna disease, stroke, paroxysmal a fib, hyperlipidemia Clinical Indicators: Brain MRI: lesion in the left thalamus which does not represent acute ischemia. This may relate to previous bleeding. Per Neurology Brain CT: revealed evidence of an acute to subacute left thalamic lacunar infarct extending into the posterior limb acute ischemic left MCA stroke EEG: evidence of a severe widespread diffuse disturbance in cerebral function , failed to reveal any focal, lateralized or epileptiform abnormalities. 09/25 Repeat Brain MRI: ring enhancing lesion within the left thalamus possible small secondary focus, findings could represent tumors, correlate to exclude abscess, demyelination and hemorrhage felt to be less likely Mental status change and weakness noticed. Treatment: repeated brain MRI and CT Anticoagulants held Consults: neurology In your opinion what is the most clinically appropriate diagnosis for this patient? CVA ruled in CVA ruled out History only? Other explanation of clinical findings Unable to determine (no explanation for clinical findings) new CVA ruled out during this admission Does have a history of CVA from [facility]
[2018-09-27 14:12] LABS: Glucose,Whole Blood 283 mg/dL (75-99)
[2018-09-27 16:18] LABS: Glucose,Whole Blood 181 mg/dL (75-99)
[2018-09-27] MEDS: LEVOFLOXACIN 250 MG TAB PO SCH (17:38)
[2018-09-27] MEDS: ATORVASTATIN 40 MG TAB PO SCH (19:55)
[2018-09-27 20:33] LABS: Glucose,Whole Blood 184 mg/dL (75-99)
[2018-09-27] MEDS: INSULIN DETEMIR 100 UNIT/ML 10 ML VIAL SQ SCH (20:36)
--- NOTE | 2018-09-27 22:54 | P.PN ---
Subjective Progress Note Date: 09/27/18 This patient is a 63-year-old female with a history of type 1 diabetes mellitus on insulin pump. Patient suffered a recent stroke about 2 weeks ago and was admitted to [facility] where she was treated. We did request records yesterday but these are still pending from this hospital. Patient underwent a computed tomography scan of the brain yesterday which revealed evidence of a left thalamic lesion. She was recommended to have MRI of the brain today which was completed and read by Dr. Noguera. The MRI reveals evidence of a 1.9 cm lesion in the left thalamus which does not represent acute ischemia. This may be related to previous bleeding. A postcontrast MR was suggested. We have recommended the MRI of the brain to be done with contrast tomorrow morning. Anticoagulation has been placed on hold until this MRI has been completed. We did obtain medical records for [facility] where the patient was transferred following her initial stroke findings on 09/09. Patient was given TPA and transferred to [facility] for neuro interventional evaluation and treatment. We did obtain the medical records from [facility] yesterday. Patient underwent an MRI of the brain on 09/14/2018 results of which indicated a 12 mm focus of acute/ subacute ischemia in the left lyn. Patient also had a computed tomography scan of the brain performed on 09/10/2018 after she was transferred to [facility] and this CAT scan revealed focal ischemia in the left thalamus. There appears to be discrepancy on the MRI studies between [facility] and MRI of the brain that was done here at [facility] on 2017 and revealed a 1.9 cm lesion in the left thalamus which does not represent acute ischemia. Radiologist stated this may be related to previous bleeding. Based on the 2 discrepancies on both MRI studies of the brain we have recommended MRI of the brain to be done with gadolinium tomorrow morning and the films are to be reviewed personally by myself and the radiologist so that comparison scan be made. This patient likely will require long-term anticoagulation however a decision to proceed will be given only after her MRI studies have all been reviewed and there is no evidence to suggest underlying intracranial hemorrhage either past or present. Case will be discussed tomorrow with cardiology in regards to anticoagulation. The patient yesterday was showing clear signs of metabolic encephalopathy. She had evidence of uncontrolled hyperglycemia. Her blood sugars were size 813 and her acetone was positive. She was started on insulin drip yesterday. Today the patient is more alert and oriented. She does not appear to be in any distress. She denies any headache or fever. At this time given her MRI findings we have recommended that the Plavix be placed on hold until the MR of the brain with contrast study is done. We are still awaiting all of her records to be sent for [facility] so that exact findings at that time could be reviewed. We did discuss the MRI findings today with Dr. Keenan and at this point we have recommended to place her Plavix on hold until further information is obtained. Patient was seen by cardiology today and Dr. Guzman is recommending echocardiogram Doppler to be done. Patient has a history of paroxysmal atrial fibrillation which was found on a documentation from 2015. Patient was seen today by cardiology and Dr. Guzman is recommending given her history of paroxysmal atrial fibrillation and recent stroke that anticoagulation is indicated. We will discuss with Dr. Guzman the need for anticoagulation for this patient. Further history was obtained from the patient today bedside. Apparently she has been following with the cardiologists in [facility] on a regular basis. She is not aware of her cardiologists mentioning any past history of paroxysmal atrial fibrillation. We have also had the patient go for a repeat MRI of the brain with gadolinium today. This MRI study done on 09/25/2018 with gadolinium reveals a ring-enhancing lesion within the left thalamus. This finding raises the possibility of multiple differential diagnosis including brain tumor, brain abscess, demyelination, or stroke variation. This MRI films were reviewed today by myself and Dr. Carlos from the radiology department. We did recommend to have a computed tomography scan of the brain done today as well to rule out any possibility of hemorrhage. This was done on 09/25/2018 and reveals hypodensity in the left thalamus consistent with subacute infarct with no change compared to her recent exam. The patient clinically was examined today at bedside and is doing much better in terms of her overall mental status. She is much more alert and oriented and able to answer all questions appropriately today. Her neurological examination reveals mild right-sided hemiparesis which also is improving with time. Given the finding of possibility of brain abscess on this MRI study we did recommend a consultation with Dr. Alcala from infectious disease. Dr. Alcala did see the patient today and feels that brain abscess is very low on his suspicion for this ring- enhancing lesion on the MRI of the brain. We did discuss with Dr. Alcala today over the telephone at length the MRI findings. He has spoken with Dr. Milton in the radiology department to is going to obtain all of the MRI studies done on this patient at [facility] as well as here and he will give a final interpretation of these MRI test results. Clinically the patient is shown significant improvement today in terms of her mental status. We are holding off on anticoagulation at this time and will discuss this further with Dr. Guzman tomorrow morning. Dr. Carlos review the MRI of the brain done today and there does not appear to be any evidence of acute stroke on diffusion- weighted imaging. This raises the question whether this lesion is an acute stroke or some form of infectious etiology or otherwise. At this point we will hold off on anticoagulating the patient and will discuss this further with Dr. Guzman tomorrow. We recommended she remain in the ICU one further day unless a bed is needed for which she could be transferred to the third floor. Her overall prognosis at this time remains guarded. Patient is remaining on a DKA protocol and her encephalopathy is showing improvement. This patient's significant improvement in her mental status today suggests that she had a severe form of metabolic encephalopathy from her hyperglycemia. Now that her blood sugars are under much better control she seems to be back to baseline. It is still very much unclear why the patient had difficulty using her insulin pump recently as she has been using the pump for over 12 years. We will continue to monitor her mental status closely during this admission. This case was discussed at length today with Dr. Alcala. The patient has had no fevers or leukocytosis consequently brain abscess seems to be distinctly unlikely as per Dr. Alcala. He is recommending serologies to be done for further evaluation of toxoplasmosis. Lumbar puncture is not indicated at this time as per Dr. Alcala. Patient clearly is showing significant improvement in her mental status today. She does not appear to be toxic in any way. She was transferred out of the intensive care unit yesterday evening. She has been up and ambulating without assistance. We did discuss today this patient's neurological findings in detail with Dr. Guzman. We reviewed all of the MRI and CAT scan results and are now recommending Dr. Guzman to consider starting her with anticoagulation for treatment of her paroxysmal atrial fibrillation. He states he will initiate anticoagulation for her as soon as possible today. There was no evidence of any hemorrhage on her recent MRIs her most recent CAT scan of the brain that was done yesterday. The patient had a long discussion today with Dr. Guzman from cardiology. It was agreed that she should be on long -term anticoagulation and she was started on Eliquis 5 mg twice a day. The patient was advised to follow-up with cardiology soon after discharge from hospital. She is maintained significant improvement in her overall mental status and a question of possible underlying infection such as brain abscesses or some possibility of toxoplasmosis seems to be very unlikely given this patient's overall improvement and discussion of recent MRI findings in detail with the radiologist. Patient is being considered for possible discharge home tomorrow. She may follow-up in the outpatient neurology clinic in 3-4 weeks. Her overall prognosis at this time remains guarded. Objective - Vital Signs Vital signs: Vital Signs Temp 97.0 F L 09/27/18 16:00 Pulse 90 09/27/18 16:00 Resp 17 09/27/18 16:00 BP 110/60 09/27/18 16:00 Pulse Ox 96 09/27/18 16:00 Intake & Output 09/26/18 09/27/18 09/27/18 18:59 06:59 18:59 Intake Total 1016 692 Output Total 800 Balance 1016 -108 Weight 78.2 kg 78.2 kg Intake: IV 100 30 D5-0.45% NaCl with KCl 100 20Meq/l 1,000 ml @ 50 mls /hr IV .Q20H [facility] Rx#: [id number] Invasive Line 3 30 Oral [id number] Output: Urine 800 Other: Voiding Method Toilet Toilet Toilet # Voids 1 - Exam Physical examination: PHYSICAL EXAMINATION: Patient is resting comfortably in bed. VITAL SIGNS: Blood pressure is [122/60]. Heart rate is [70]. Respiration is [16] . Temperature is [97.1]. HEENT: Head is atraumatic, neck is supple, there were no carotid bruits. CHEST: Lungs are clear to auscultation and percussion. CARDIAC: S1, S2 normal rate and rhythm. There is no murmur. ABDOMEN: Soft and nontender. Bowel sounds are present. EXTREMITIES: There is no pedal edema. Peripheral pulses are present. Neurological examination: Patient's neurological examination shows improvement in her mental status as compared to yesterday. The patient is much more awake and alert and able to answer all questions appropriately. This is significant improvement in her mental status as compared to yesterday's neurological examination. Cranial nerves II through XII are grossly intact. Motor examination reveals slight right pronator drift. Sensory examination was intact. Deep tendon reflexes are 1+ and symmetric. Plantar responses flexor bilaterally. Coordination and gait cannot be assessed in this patient at this time. Patient has been up and ambulating without any difficulties today. - Labs CBC & Chem 7: 09/27/18 05:33 09/27/18 15:09 Labs: Abnormal Lab Results - Last 24 Hours (Table) 09/26/18 09/27/18 09/27/18 Range/Units 20:17 02:02 05:33 Potassium 3.4 L (3.5-5.1) mmol/L POC Glucose (mg/dL) 122 H 111 H (75-99) mg/dL Alkaline Phosphatase 27 L (38-126) U/L Total Protein 6.2 L (6.3-8.2) g/dL Albumin 3.1 L (3.5-5.0) g/dL 09/27/18 09/27/18 09/27/18 Range/Units 11:07 14:10 16:14 Potassium (3.5-5.1) mmol/L POC Glucose (mg/dL) 67 L 283 H 181 H (75-99) mg/dL Alkaline Phosphatase (38-126) U/L Total Protein (6.3-8.2) g/dL Albumin (3.5-5.0) g/dL Microbiology - Last 24 Hours (Table) 09/25/18 15:13 Blood Culture - Preliminary Blood No Growth after 48 hours 09/25/18 15:04 Blood Culture - Preliminary Blood No Growth after 48 hours Assessment and Plan (1) Acute ischemic left MCA stroke Current Visit: Yes Status: Acute Code(s): I63.512 - CEREB INFRC D/T UNSP OCCLS OR STENOS OF LEFT MID CEREB ART SNOMED Code(s): 067847486 (2) Diabetic ketoacidosis Current Visit: Yes Status: Acute Code(s): E13.10 - OTH DIABETES MELLITUS WITH KETOACIDOSIS WITHOUT COMA SNOMED Code(s): 579488487 (3) Dehydration Current Visit: Yes Status: Acute Code(s): E86.0 - DEHYDRATION SNOMED Code( s): 80021372 (4) History of CVA (cerebrovascular accident) Current Visit: Yes Status: Acute Code(s): Z86.73 - PRSNL HX OF TIA (TIA), AND CEREB INFRC W/O RESID DEFICITS SNOMED Code(s): 020579196 (5) Hyperosmolarity due to secondary diabetes mellitus Current Visit: Yes Status: Acute Code(s): E13.00 - OTH DIAB W HYPROSM W/O NONKET HYPRGLY-HYPROS COMA ([facility]) SNOMED Code(s): 11426713 Plan: This patient is a 63-year-old female initially seen at [facility] back on 09/09/2018 at which time she was diagnosed as having suffered an acute stroke. She was given TPA and then transferred to the neuro intensive care unit at [facility]. She underwent a MRI study there which revealed her to have suffered a acute left pontine infarct. She was discharged after 5-7 days to home. She was coming along fairly well until September 22 when she developed severe uncontrolled diabetes mellitus. Patient had a blood sugar of 813. She has been using a insulin pump but for whatever reason she became very confused and was not properly adjusting her insulin requirements. She was brought into the emergency room on 09/22/2018 and was admitted to Hospital. She underwent an initial computed tomography scan and subsequent MRI scan of the brain which revealed a left thalamic lesion. She was sent for MRI of the brain with gadolinium today the results of which are noted above. MRI reveals a ring-enhancing lesion in the left thalamus. The differential diagnosis is as discussed above. We did contact Dr. Alcala today who has a very low suspicion that this lesion represents a brain abscess. He will go into further evaluation for other possible infectious causes. Dr. Alcala's order toxoplasmosis serology to be done for her. This seems to be unlikely cause of the ring-enhancing lesion that was noted on her MRI of the brain. Her MRI of the brain performed with gadolinium today failed to reveal any evidence of acute stroke on diffusion-weighted imaging in the left thalamus. This raises the question that this lesion may not represent a acute or subacute infarction. Dr. Alcala had a long discussion with the radiologist Dr. Milton yesterday who had to make some addendum's to his recent MRI report. He will also contact the radiology department at [facility] to obtain the MRI disc so that he can give a interpretation of all of these findings in a concise manner. At this point we will need to discuss with cardiology and Dr. Guzman the need for anticoagulation of this patient given this rather complex MRI findings. We did discuss today with Dr. Guzman the results of her MRI findings. We did do a repeat computed tomography scan of the brain yesterday which came back negative for any evidence of hemorrhage. At this time we are recommending the patient could be started on anticoagulation given her history of paroxysmal atrial fibrillation [place] [address] Guzman is in full agreement and he will initiate anticoagulation for this patient later today. The patient was seen today by Dr. Guzman from cardiology. She was recommended to begin anticoagulation with Eliquis 5 mg twice a day. We will await further follow-up from Dr. Milton in regards to the interpretation of all of these MRI studies that have been done on this patient. Neurologically the patient is doing quite well today and continues to show significant improvement in her overall mental status. She likely had a severe metabolic encephalopathy due to the uncontrolled diabetes and severe hyperglycemia. She is now doing much better with her diabetic control as well. The patient clinically showing significant improvement in her mental status today. The patient likely will be able to be discharged home tomorrow. She may follow-up in the outpatient neurology clinic in 3-4 weeks. She is to follow up with cardiology as instructed. Patient's neurological examination and mental status are much improved since her initial presentation. 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 We reviewed all of her test results with the patient today in detail. As noted she may follow- up in the outpatient neurology clinic in 3-4 weeks. Overall her prognosis at this time remains guarded.
[2018-09-28 02:08] LABS: Glucose,Whole Blood 50 mg/dL (75-99)
[2018-09-28] MEDS: INSULIN ASPART 100 UNIT/ML 1 ML 10 ML VIAL SQ SCH ×7 (02:25→17:44)
[2018-09-28 02:31] LABS: Glucose,Whole Blood 60 mg/dL (75-99)
[2018-09-28 03:02] LABS: Glucose,Whole Blood 108 mg/dL (75-99)
[2018-09-28 04:14] VITALS: TEMP 97.7
[2018-09-28 05:22] LABS: Glucose,Whole Blood 108 mg/dL (75-99)
[2018-09-28 05:54] LABS: Basophils % (A) 0 %; Eosinophils # (A) 0.1 k/uL (0-0.7); Eosinophils % (A) 1 %; HCT 34.4 % (34.0-46.0); HGB 11.4 gm/dL (11.4-16.0); Lymphocytes # (A) 1.4 k/uL (1.0-4.8); Lymphocytes % (A) 28 %; MCH 29.6 pg (25.0-35.0); MCHC 33.1 g/dL (31.0-37.0); MCV 89.6 fL (80.0-100.0); Mean Platelet Volume 7.3; Monocytes # (A) 0.3 k/uL (0-1.0); Monocytes % (A) 6 %; Neutrophils % (A) 62 %; Platelet Count 219 k/uL (150-450); RBC 3.84 m/uL (3.80-5.40); RDW 13.7 % (11.5-15.5); WBC 4.9 k/uL (3.8-10.6)
[2018-09-28 06:11] LABS: ALT 22 U/L (9-52); AST 20 U/L (14-36); Albumin 3.1 g/dL (3.5-5.0); Alkaline Phosphatase 21 U/L (38-126); Anion Gap 8 mmol/L; Blood Urea Nitrogen 11 mg/dL (7-17); Calcium 8.8 mg/dL (8.4-10.2); Carbon Dioxide 28 mmol/L (22-30); Chloride 104 mmol/L (98-107); Glucose 108 mg/dL (74-99); Potassium 3.9 mmol/L (3.5-5.1); Sodium 140 mmol/L (137-145); Total Bilirubin 0.5 mg/dL (0.2-1.3)
[2018-09-28] MEDS: PANTOPRAZOLE 40 MG TABLET PO SCH (06:57)
[2018-09-28] MEDS: LEVOTHYROXINE 75 MCG TAB PO SCH (06:58)
[2018-09-28] MEDS: APIXABAN 5 MG TAB PO SCH (08:26)
[2018-09-28] MEDS: METOPROLOL TARTRATE 25 MG TAB PO SCH (08:26)
[2018-09-28 11:24] LABS: Glucose,Whole Blood 113 mg/dL (75-99)
--- NOTE | 2018-09-28 11:33 | FL ---
EXAMINATION TYPE: FL barium swallow w video DATE OF EXAM: 09/28/2018 MODIFIED SWALLOW / DEGLUTITION STUDY CLINICAL HISTORY: Dysphagia. History of Oc fundoplication surgery 2015. Recent TIA. TECHNIQUE: Deglutition study is performed utilizing thin liquid barium, honey and nectar thick liqui d barium, barium thick applesauce, and barium coated cracker. 0 images are saved to PACS. Roughly 60 seconds of fluoroscopic time was utilized. COMPARISON: None. FINDINGS: The oral and pharyngeal phases show satisfactory initiation and propagation with all modali ties tested. Normal mastication is seen with solid modalities tested. There is no evidence of penet ration or aspiration with any modality tested. No significant pharyngeal residue was appreciated. IMPRESSION: Normal deglutition study. Please refer to speech therapist notes for further details if necessary.
[2018-09-28 12:12] VITALS: BP 117/69; PULSE 76; RESP 16
[2018-09-28 13:19] VITALS: BMI 30.4
--- NOTE | 2018-09-28 13:28 | P.DS ---
Providers Date of admission: 09/22/18 16:35 Expected date of discharge: 09/28/18 Attending physician: Nadiya Keenan Consults: 09/22/18 14:35 Consult Physician Routine Consulting Provider: Francesca Oropeza Consult Reason/Comments: lacunar stroke Do you want consulting provider notified?: Yes 09/22/18 14:38 Consult Physician Routine Consulting Provider: Dixie Ferrari Consult Reason/Comments: ICU management Do you want consulting provider notified?: Yes 09/22/18 15:12 Consult Physician Routine Consulting Provider: Kayla Guzman Consult Reason/Comments: afib, anticoagulation recommendations Do you want consulting provider notified?: Yes 09/25/18 13:44 Consult Physician Urgent Consulting Provider: Gino Alcala Consult Reason/Comments: rule out brain abscess Do you want consulting provider notified?: Yes Primary care physician: Farida Rosenbaum Hospital Course: Discharge diagnosis 1. Uncontrolled blood sugars with diabetic ketoacidosis secondary to insulin pump being used incorrectly and possibly a low battery. Blood sugar 813 acetone positive CO2 less than 5. Patient placed on insulin drip in the ER. She'll be admitted to the ICU. Dr. Ferrari will be consulted for ICU management. Continue with IV fluids. Discontinue insulin pump. Urinalysis positive for ketones. DKA has now resolved. Continue Levemir 23 units at bedtime with NovoLog 5 units scheduled 3 times a day. Patient and family seen by nurses educator. Patient will be discharged on insulin. And she can follow-up with her statistics teacher discuss possibly restarting the insulin pump. Discussed with nursing staff to teach patient And family on how to administer insulin. 2. Acute kidney injury: Likely related to the DKA and dehydration now resolved with IV fluids. 3. Hyperkalemia: potassium 6.7 likely related to acute kidney injury and hyperglycemia. Resolved after insulin and Kayexalate given. Patient is now hypokalemic with a potassium of 3.4. Potassium replaced per protocol 4. Elevated lactic acid level of 6.8. Repeat lactic acid 6 show improvement with IV fluids. 5. Leukocytosis: Possibly related to hyperglycemia and UTI. Resolved 6. Recent stroke 2 weeks ago treated at [facility]. no evidence of new stroke during this admission. Computed tomography scan of the brain showing acute to subacute left thalamic lacunar injury extending into the posterior limb of the internal capsule. No intracranial hemorrhage or midline shift. Neurology is following closely. They have discontinued the Plavix for further evaluation about a possible brain bleed. MRI of the brain findings as stated above as well as repeat computed tomography scan of the brain. Per neurology and cardiology services anticoagulation will be initiated.. Awaiting further follow-up from Dr. Milton regards interpretation of all the MRI studies have been done for this patient per neurology. Neurology and the radiologist discussed the case. Radiologist reviewed the MRI of the brain and has added addendum's. Please note that findings on the MRI are likely due to prior infarct in the left thalamus after radiologist was able to review prior MRI from 09/14/2018. Neurology and cardiology had come to an agreement to start patient on anticoagulation with him was 5 mg twice a day for her history of paroxysmal atrial fibrillation in light of there no evidence of bleeding on the MRI or CAT scan of the brain. 7. History of Karis's disease 8. History of paroxysmal atrial fibrillation. Patient had been on aspirin 81 mg by mouth daily prior to her stroke. Patient and daughter report that she had not been on any anticoagulation. No further episodes of atrial fibrillation. Followed by cardiology. Awaiting their recommendations regarding anticoagulation. 7. Acute metabolic encephalopathy with Altered mental status and lethargy secondary to elevated blood sugars present on admission. Now resolved 8. Hyperlipidemia continue statin 9. UTI: urine culture negative. 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 Patient was brought into the emergency room due to increasing confusion and lethargy with elevated blood sugar. Daughter called EMS and EMS reported a blood sugar of 563. Patient was given IV fluids and Route. According to the patient's daughter patient had a stroke about 2 weeks ago. She was admitted to [facility] at that time. She was there for about a week. Her daughter patient had about a 90% recovery. At home patient was taking care of her own insulin pump. On over the last 2 days the daughter noted that her mom was having difficulty managing her insulin pump and medications. The insulin pump battery went low and also it was time to replace insulin. Patient's daughter was unaware of how to use the pump. She tried to check her mother's blood sugar had difficulty with this. She felt that the sugars maybe be low and started to give her PE her mom orange juice. She reports that her mom was very confused and lethargic. Cannot even sit up in a chair. She had loss of bladder control. In the ER she was found to have a glucose of 813 acetone was positive. She has been started on insulin drip. Discussed with ER physician insulin pump will be removed. White count 15.3 sodium 136 potassium 6.7 chloride 97 CO2 less than 5 and anion gap unable calculated BUN 34 creatinine 1.9 for lactic acid 6.8. Patient is receiving IV fluid boluses. She is currently on normal saline at 100 mL an hour. And also on insulin drip. Patient will be admitted to the ICU. Dr. Santiago will be consulted for ICU management. Computed tomography scan of the brain shows an acute subacute traumatic lacunar injury extending into the posterior limb. Neurology will be consulted. Patient is lethargic. She is arousable. She is alert and orientated to name and place. She did not know the year. She did not know her daughter's name. She denies any chest pain or shortness of breath. Denies any nausea or vomiting. Denies any fevers chills or sweats. Denies any bowel movement changes or urinary symptoms. Patient does have an statistics teacher that she follows outpatient. Patient also has had decrease in appetite has not been eating and drinking well at home. On 09/23/2018 patient is alert and oriented 3 in no apparent distress she denies any pain or discomfort at this time there is no fever or chills no headache or dizziness no chest pain no shortness of breath no cough no nausea or vomiting no abdominal pain no diarrhea and no urinary symptoms Buck catheter is in. Labs are improving with creatinine down to 1.23 lactic acid down to 1.4 white blood count down to 12 point On 09/24/2018 patient was seen and examined in the ICU today, she is more alert and oriented, she denies any complaints at this time, there is no fever or chills no headache or dizziness no chest pain no shortness of breath or cough no nausea or vomiting no abdominal pain no diarrhea and no urinary symptoms 09/25/2018 patient is awake and alert sitting up in bed. Still has poor appetite. Blood sugar 196 this morning. Potassium is 3.4 and being replaced. She is scheduled for a repeat MRI of the brain with contrast for further evaluation about a possible brain bleed. 09/26/2018 patient transferred out of the ICU yesterday. She did have a low blood sugar of 88 this morning. She did not receive an evening snack. She was in the transition of moving from ICU to the telemetry floor. Otherwise blood sugars have shown great improvement with the insulin. Awaiting further recommendations per neurology and cardiology in regards to anticoagulation due to her history of paroxysmal atrial fibrillation and stroke. MRI of the brain does show a ring enhancing lesion within the left thalamus possible small secondary focus findings could represent tumors, correlate to exclude abscess, demyelination and hemorrhage felt less likely. Repeat computed tomography scan of the brain shows hypodensity in the left thalamus consistent with subacute infarct. Patient seen by infectious disease they are not recommending a lumbar puncture. Infectious disease also evaluated patient and felt that brain abscess to be unlikely. Patient has no new complaints. She has been up and ambulating without assistance. Denies any chest pain or shortness of breath. Reports regular bowel movements. Denies any difficulty urinating. On 09/27/2018 patient is currently resting comfortably in room. Patient is alert and oriented 3 in no apparent distress. Patient denies chest pain or shortness of breath. Patient denies any urinary burning or frequency. Patient denies any nausea vomiting or diarrhea. She has been started back on anticoagulation per neuro and cardiology services. 09/28/2018 patient is medically stable for discharge. She has been cleared by consulting physicians for discharge. Her neurological workup did show a metabolic encephalopathy due to her DKA and elevated blood sugars. Mentation has returned to normal as her blood sugars have improved. There were concerns of further evaluation of her stroke. Per neurology and the further evaluation of her MRI of the brain supported that findings on current exam likely due to prior infarct in the left thalamus. Neurology felt that there were no evidence of any new acute infarct or evidence of any bleeding. Therefore Eliquis 5 mg twice a day was initiated for anticoagulation due to patient's history of paroxysmal atrial fibrillation and recent stroke. As far as her DKA was likely due to a malfunctioning insulin pump and patient unable to use the pump correctly. At this time she has been placed on Levemir 23 units before dinner and NovoLog 5 units before each meal. Her hypoglycemia resolved with the decrease of the NovoLog from 8-5 units before each. Recommend that patient follows up with her statistics teacher within the next few days. Both patient and family have been educated on how to administer insulin. A1c was 9.1. Also note that the Eliquis co-pay is $72. Patient is agreeable to pay this amount. Also hospital has given a free 30 day coupon with a phone number to contact the drug company to possibly even reduce the ortega further. Patient's symptoms have improved. She is medically stable for discharge. We'll have her follow- up with neurology, endocrinology and cardiology in the office as scheduled. Prior to discharge patient underwent a modified barium swallow study there is no signs of aspiration. Dietitian recommends the patient continues on current diet no restrictions required. Patient had been pocketing food. She has been educated to 2 her food slowly and multiple times before swallowing and if symptoms recur speech therapist is recommending an esophagram. I performed an examination of the patient and discussed their management with the physician Dental Ceramist Helper. I have reviewed the Physician Dental Ceramist Helper's notes and agree with the documented findings and plan of care Patient Condition at Discharge: Stable Plan - Discharge Summary New Discharge Prescriptions: New Apixaban [Eliquis] 5 mg PO BID #60 tab Insulin Aspart [NovoLOG (formulary)] 5 unit SQ AC-TID #1 vial Insulin Detemir [Levemir] 23 unit SQ HS #1 vial Continue Metoprolol Tartrate 25 mg PO BID Levothyroxine Sodium [Synthroid] 75 mcg PO DAILY Atorvastatin [Lipitor] 40 mg PO HS Discontinued Insulin Aspart [NovoLOG] See Protocol SQ CONTINUOUS Clopidogrel [Plavix] 75 mg PO DAILY Discharge Medication List Metoprolol Tartrate 25 mg PO BID 08/07/16 [History] Levothyroxine Sodium [Synthroid] 75 mcg PO DAILY 11/27/17 [History] Atorvastatin [Lipitor] 40 mg PO HS 09/22/18 [History] Apixaban [Eliquis] 5 mg PO BID #60 tab 09/28/18 [Rx] Insulin Aspart [NovoLOG (formulary)] 5 unit SQ AC-TID #1 vial 09/28/18 [Rx] Insulin Detemir [Levemir] 23 unit SQ HS #1 vial 09/28/18 [Rx] Follow up Appointment(s)/Referral(s): Francesca Oropeza MD [STAFF PHYSICIAN] - 3 Weeks Yvonne Goodson MD [STAFF PHYSICIAN] - 1 Week Farida Rosenbaum DO [Primary Care Provider] - 10/03/18 12:45 pm (Tuesday in [place] ) Patient Instructions/Handouts: Diabetic Ketoacidosis (DC) Activity/Diet/Wound Care/Special Instructions: Sophy cook is $72 at [facility] - free 30 day coupon applied - call 1- [phone] to see if the drug company can help you with the cost. If not, contact cardiology associates for samples [phone] Diet: diabetic Activity: as tolerated Follow up with there statistics teacher in 3 days check blood sugar three times a day before meals and record. Take results to statistics teacher Discharge Disposition: HOME SELF-CARE
[2018-09-28 16:37] LABS: Glucose,Whole Blood 190 mg/dL (75-99)
[2018-09-28] MEDS: LEVOFLOXACIN 250 MG TAB PO SCH (17:45)
== END 2018-09-28 17:56 | disposition home or self-care (01) | DRG 637 ==
LOC: EC 11:54 → 2SICU 16:35 → 3SCARD 09-25 23:01
PROVIDERS: ADMIT Internal Medicine; ATTEND Internal Medicine
DX: E10.10 Type 1 diabetes mellitus with ketoacidosis without coma (principal); G93.41 Metabolic encephalopathy; N17.9 Acute kidney failure, unspecified; T85.694A Other mechanical complication of insulin pump, initial encounter; I69.951 Hemiplegia and hemiparesis following unspecified cerebrovascular disease affecting right dominant side; N39.0 Urinary tract infection, site not specified; E10.649 Type 1 diabetes mellitus with hypoglycemia without coma; E78.5 Hyperlipidemia, unspecified; E86.0 Dehydration; E87.5 Hyperkalemia; E87.6 Hypokalemia; G47.30 Sleep apnea, unspecified; I10 Essential (primary) hypertension; I48.2 Chronic atrial fibrillation; K21.9 Gastro-esophageal reflux disease without esophagitis; R32 Unspecified urinary incontinence; E07.9 Disorder of thyroid, unspecified; M19.90 Unspecified osteoarthritis, unspecified site; D72.829 Elevated white blood cell count, unspecified; Z79.01 Long term (current) use of anticoagulants; Z79.02 Long term (current) use of antithrombotics/antiplatelets; Z79.82 Long term (current) use of aspirin; Z79.899 Other long term (current) drug therapy; Z79.890 Hormone replacement therapy; Z79.4 Long term (current) use of insulin; Z90.721 Acquired absence of ovaries, unilateral; Z87.891 Personal history of nicotine dependence; Z88.0 Allergy status to penicillin; Z90.49 Acquired absence of other specified parts of digestive tract; Z82.49 Family history of ischemic heart disease and other diseases of the circulatory system
CPT/HCPCS: 36415; 70450; 70551; 70552; 71046; 74230; 80051; 80053; 80061; 81001; 82009; 82550; 82553; 82565; 82803; 82947; 83036; 83605; 83735; 83930; 84100; 84132; 84443; 84484; 84520; 85025; 85610; 85730; 87040; 87086; 93005; 93306; 95819; 96360; 99291

== ENCOUNTER 2019-03-18 20:11 | Observation (INO) | payer MEDICARE, BC, OTHER ==
[2019-03-18] MEDS ORDERED: ASPIRIN 81 MG PO STA (20:34)
[2019-03-18] MEDS ORDERED: DEXTROSE 50% SYRINGE 50 ML IVP STA (20:35)
--- NOTE | 2019-03-18 20:37 | ED ---
General Adult HPI - General Chief complaint: Recheck/Abnormal Lab/Rx Stated complaint: DM Time Seen by Provider: 03/18/19 20:19 Source: patient, EMS Mode of arrival: EMS Limitations: no limitations - History of Present Illness Initial comments: Patient is a 63-year-old female presenting for syncope and hypoglycemia. The patient states that she has a history of diabetes and today while at the dinner table, she passed out but did not fall and hit her head. EMS was called and noted to have a blood sugar of 41. She states after the event, she was confused but denies any chest pain, shortness breath, nausea/vomiting/diarrhea or abdominal pain. She states that she did have a little bit of diarrhea last night but none now. She states that she also takes 11 units of NovoLog twice a day and took her dose this morning but none tonight. She also states that she takes 21 units of Lantus nightly but had not taken it tonight. He does admit to some chest tightness currently but no chest pain. - Related Data Home Medications Medication Instructions Recorded Confirmed Metoprolol Tartrate 25 mg PO BID 08/07/16 03/18/19 Levothyroxine Sodium [Synthroid] 75 mcg PO DAILY 11/27/17 03/18/19 Atorvastatin [Lipitor] 40 mg PO HS 09/22/18 03/18/19 Insulin Detemir (Levemir) [Levemir] 21 unit SQ HS 03/18/19 03/18/19 Previous Rx's Medication Instructions Recorded Apixaban [Eliquis] 5 mg PO BID #60 tab 09/28/18 INSULIN ASPART (NovoLOG) [NovoLOG 5 unit SQ AC-TID #1 vial 09/28/18 (formulary)] Allergies Allergy/AdvReac Type Severity Reaction Status Date / Time Penicillins Allergy Unknown Verified 03/18/19 20:42 Review of Systems ROS Statement: Those systems with pertinent positive or pertinent negative responses have been documented in the HPI. Constitutional: Negative for chills, fatigue and fever. HENT: Negative for congestion. Respiratory: Negative for chest tightness, shortness of breath and wheezing. Negative for cough Cardiovascular: Negative for chest pain and palpitations. Positive for syncope. Positive for chest tightness Gastrointestinal: Negative for abdominal pain. Negative for abdominal distention, nausea and vomiting. Positive for diarrhea Genitourinary: Negative for dysuria. Musculoskeletal: Negative for back pain, neck pain and neck stiffness. Skin: Negative for color change. Neurological: Negative for dizziness, speech difficulty, weakness and light- headedness. Psychiatric/Behavioral: Negative for agitation and confusion. Negative for anxiety ROS Other: All systems not noted in ROS Statement are negative. Past Medical History Past Medical History: Atrial Fibrillation, Diabetes Mellitus, GERD/Reflux, Sleep Apnea/CPAP/BIPAP, Thyroid Disorder Additional Past Medical History / Comment(s): no cpap used, arthritis, thyroid nodule, Karis disease History of Any Multi-Drug Resistant Organisms: None Reported Past Surgical History: Bariatric Surgery, Cholecystectomy, Tonsillectomy Additional Past Surgical History / Comment(s): right ovary removed, Past Anesthesia/Blood Transfusion Reactions: No Reported Reaction, Family History of Problems w/ Anesthesia Additional Past Anesthesia/Blood Transfusion Reaction / Comment(s): DIFFICULTY WITH INTUBATION-NEEDS SMALL TUBE. Needs to use a child's one. mother has diff coming out Past Psychological History: No Psychological Hx Reported Smoking Status: Never smoker Past Alcohol Use History: None Reported Past Drug Use History: None Reported - Past Family History Mother Family Medical History: No Reported History Father Family Medical History: Myocardial Infarction ([place]) General Exam - General Exam Comments Initial Comments: Constitutional: Pt appears well-developed and well-nourished. No distress. Head: Normocephalic and atraumatic. Eyes: EOM are normal. Neck: Normal range of motion. Neck supple. Cardiovascular: Normal rate, regular rhythm, S1 normal, S2 normal and normal heart sounds. Exam reveals no gallop and no friction rub. No murmur heard. Pulmonary/Chest: Effort normal and breath sounds normal. No tachypnea and no bradypnea. No respiratory distress. No wheezes or rales noted. Abdominal: Soft. Bowel sounds are normal. Pt exhibits no shifting dullness, no distension, no pulsatile liver, no fluid wave, no abdominal bruit and no ascites. There is no rigidity, no rebound, no guarding, no tenderness at McBurney's point and negative Galarza's sign. There is no tenderness. Musculoskeletal: Normal range of motion. Neurological: Pt is alert and oriented to person, place, and time. No cranial nerve deficit. Skin: Skin is warm and dry. No rash noted. Pt is not diaphoretic. No erythema. No pallor. Psychiatric: Pt has a normal mood and affect. Pt behavior is normal. Thought c ontent normal. Limitations: no limitations Course Vital Signs 03/18/19 03/18/19 20:19 21:23 Temperature 97.6 F Pulse Rate 64 71 Respiratory 16 18 Rate Blood Pressure 127/84 124/77 O2 Sat by Pulse 100 99 Oximetry EKG Findings - EKG Comments: EKG Findings:: EKG shows normal sinus rhythm with a rate of 69 bpm, MD interval 192, QRS 82, QTC 460 there is no significant ST depressions or elevations. Medical Decision Making - Medical Decision Making Upon arrival to the emergency department, the patient's blood glucose was down trending and on BMP, it was noted to be 33. Patient was given D50 here in the emergency department and started on D5. It is unclear why the patient continues to be hypoglycemic but it was explained to the patient that it would be unsafe to send her home as it was difficult to maintain a normal glucose level. From a cardiac standpoint, troponin was negative and EKG had no significant tenderness around his. Patient will be placed in observation for monitoring as well as continue treatment with D5NS.Explained all labs and diagnostic test results and that we will admit patient to hospital. Pt is agreeable to plan and case will be discussed with Dr. Polanco in the a.m.. - Lab Data Result diagrams: 03/18/19 20:38 03/18/19 20:38 Lab Results 03/18/19 03/18/19 03/18/19 Range/Units 20:18 20:38 20:38 WBC 5.1 (3.8-10.6) k/uL RBC 4.21 (3.80-5.40) m/uL Hgb 12.9 (11.4-16.0) gm/dL Hct 37.8 (34.0-46.0) % MCV 89.8 (80.0-100.0) fL MCH 30.6 (25.0-35.0) pg MCHC 34.1 (31.0-37.0) g/dL RDW 13.5 (11.5-15.5) % Plt Count 260 (150-450) k/uL Neutrophils % 71 % Lymphocytes % 21 % Monocytes % 5 % Eosinophils % 2 % Basophils % 0 % Neutrophils # 3.6 (1.3-7.7) k/uL Lymphocytes # 1.1 (1.0-4.8) k/uL Monocytes # 0.3 (0-1.0) k/uL Eosinophils # 0.1 (0-0.7) k/uL Basophils # 0.0 (0-0.2) k/uL PT (9.0-12.0) sec INR (<1.2) APTT (22.0-30.0) sec Sodium 141 (137-145) mmol/L Potassium 4.3 (3.5-5.1) mmol/L Chloride 105 (98-107) mmol/L Carbon Dioxide 26 (22-30) mmol/L Anion Gap 10 mmol/L BUN 21 H (7-17) mg/dL Creatinine 0.82 (0.52-1.04) mg/dL Est GFR (CKD-EPI)AfAm 87 (>60 ml/min/1.73 sqM) Est GFR (CKD-EPI)NonAf 75 (>60 ml/min/1.73 sqM) Glucose 33 L* (74-99) mg/dL POC Glucose (mg/dL) 103 H (75-99) mg/dL POC Glu Prevocational/Rehabilitation Counselor ID Jaci Curran Calcium 9.1 (8.4-10.2) mg/dL Magnesium 1.9 (1.6-2.3) mg/dL Total Bilirubin 0.8 (0.2-1.3) mg/dL AST 40 H (14-36) U/L ALT 18 (9-52) U/L Alkaline Phosphatase 37 L (38-126) U/L Troponin I (0.000-0.034) ng/mL Total Protein 7.8 (6.3-8.2) g/dL Albumin 4.5 (3.5-5.0) g/dL 03/18/19 03/18/19 03/18/19 Range/Units 20:38 20:38 21:20 WBC (3.8-10.6) k/uL RBC (3.80-5.40) m/uL Hgb (11.4-16.0) gm/dL Hct (34.0-46.0) % MCV (80.0-100.0) fL MCH (25.0-35.0) pg MCHC (31.0-37.0) g/dL RDW (11.5-15.5) % Plt Count (150-450) k/uL Neutrophils % % Lymphocytes % % Monocytes % % Eosinophils % % Basophils % % Neutrophils # (1.3-7.7) k/uL Lymphocytes # (1.0-4.8) k/uL Monocytes # (0-1.0) k/uL Eosinophils # (0-0.7) k/uL Basophils # (0-0.2) k/uL PT 10.2 (9.0-12.0) sec INR 0.9 (<1.2) APTT 22.6 (22.0-30.0) sec Sodium (137-145) mmol/L Potassium (3.5-5.1) mmol/L Chloride (98-107) mmol/L Carbon Dioxide (22-30) mmol/L Anion Gap mmol/L BUN (7-17) mg/dL Creatinine (0.52-1.04) mg/dL Est GFR (CKD-EPI)AfAm (>60 ml/min/1.73 sqM) Est GFR (CKD-EPI)NonAf (>60 ml/min/1.73 sqM) Glucose (74-99) mg/dL POC Glucose (mg/dL) 87 (75-99) mg/dL POC Glu Prevocational/Rehabilitation Counselor ID Jaci Curran Calcium (8.4-10.2) mg/dL Magnesium (1.6-2.3) mg/dL Total Bilirubin (0.2-1.3) mg/dL AST (14-36) U/L ALT (9-52) U/L Alkaline Phosphatase (38-126) U/L Troponin I <0.012 (0.000-0.034) ng/mL Total Protein (6.3-8.2) g/dL Albumin (3.5-5.0) g/dL 03/18/19 03/18/19 Range/Units 21:57 22:56 WBC (3.8-10.6) k/uL RBC (3.80-5.40) m/uL Hgb (11.4-16.0) gm/dL Hct (34.0-46.0) % MCV (80.0-100.0) fL MCH (25.0-35.0) pg MCHC (31.0-37.0) g/dL RDW (11.5-15.5) % Plt Count (150-450) k/uL Neutrophils % % Lymphocytes % % Monocytes % % Eosinophils % % Basophils % % Neutrophils # (1.3-7.7) k/uL Lymphocytes # (1.0-4.8) k/uL Monocytes # (0-1.0) k/uL Eosinophils # (0-0.7) k/uL Basophils # (0-0.2) k/uL PT (9.0-12.0) sec INR (<1.2) APTT (22.0-30.0) sec Sodium (137-145) mmol/L Potassium (3.5-5.1) mmol/L Chloride (98-107) mmol/L Carbon Dioxide (22-30) mmol/L Anion Gap mmol/L BUN (7-17) mg/dL Creatinine (0.52-1.04) mg/dL Est GFR (CKD-EPI)AfAm (>60 ml/min/1.73 sqM) Est GFR (CKD-EPI)NonAf (>60 ml/min/1.73 sqM) Glucose (74-99) mg/dL POC Glucose (mg/dL) 100 H 156 H (75-99) mg/dL POC Glu Prevocational/Rehabilitation Counselor ID Godwin Monet JamesChuyita Calcium (8.4-10.2) mg/dL Magnesium (1.6-2.3) mg/dL Total Bilirubin (0.2-1.3) mg/dL AST (14-36) U/L ALT (9-52) U/L Alkaline Phosphatase (38-126) U/L Troponin I (0.000-0.034) ng/mL Total Protein (6.3-8.2) g/dL Albumin (3.5-5.0) g/dL Disposition Clinical Impression: Hypoglycemia, Chest pain Disposition: ADMITTED IP TO THIS [facility] Condition: Fair Referrals: None,Stated [Primary Care Provider] - 1-2 days Decision to Admit Reason: Admit from EC Decision Date: 03/18/19 Decision Time: 22:49
[2019-03-18 20:39] LABS: Glucose,Whole Blood 103 mg/dL (75-99)
[2019-03-18 20:45] LABS: Basophils % (A) 0 %; Eosinophils # (A) 0.1 k/uL (0-0.7); Eosinophils % (A) 2 %; HCT 37.8 % (34.0-46.0); HGB 12.9 gm/dL (11.4-16.0); Lymphocytes # (A) 1.1 k/uL (1.0-4.8); Lymphocytes % (A) 21 %; MCH 30.6 pg (25.0-35.0); MCHC 34.1 g/dL (31.0-37.0); MCV 89.8 fL (80.0-100.0); Mean Platelet Volume 7.3; Monocytes # (A) 0.3 k/uL (0-1.0); Monocytes % (A) 5 %; Neutrophils # (A) 3.6 k/uL (1.3-7.7); Neutrophils % (A) 71 %; Platelet Count 260 k/uL (150-450); RBC 4.21 m/uL (3.80-5.40); RDW 13.5 % (11.5-15.5); WBC 5.1 k/uL (3.8-10.6)
[2019-03-18] MEDS ORDERED: DEXTROSE 5%-0.9% NACL 1,000 ML IV SCH (20:45)
[2019-03-18 20:56] LABS: Albumin 4.5 g/dL (3.5-5.0); Calcium 9.1 mg/dL (8.4-10.2); Total Bilirubin 0.8 mg/dL (0.2-1.3); Total Protein 7.8 g/dL (6.3-8.2)
[2019-03-18 21:10] LABS: INR 0.9 (<1.2); Partial Thromboplastin Time 22.6 sec (22.0-30.0); Prothrombin Time 10.2 sec (9.0-12.0)
--- NOTE | 2019-03-18 21:30 | XR ---
EXAMINATION TYPE: XR chest 2V DATE OF EXAM: 03/18/2019 COMPARISON: 09/22/2018 HISTORY: Chest pain TECHNIQUE: Frontal and lateral views of the chest are obtained. FINDINGS: Heart and mediastinum are normal. Lungs are clear. Diaphragm is normal. Bony thorax appear s normal. There are chest leads. IMPRESSION: Normal chest. No change.
[2019-03-18 21:33] LABS: Magnesium 1.9 mg/dL (1.6-2.3); Potassium 4.3 mmol/L (3.5-5.1)
[2019-03-18 21:34] LABS: Glucose,Whole Blood 87 mg/dL (75-99)
[2019-03-18 22:26] LABS: Glucose,Whole Blood 100 mg/dL (75-99)
[2019-03-18 22:59] LABS: Glucose,Whole Blood 156 mg/dL (75-99)
[2019-03-18] MEDS ORDERED: NALOXONE 0.4 MG/ML 1 ML VIAL IV PRN (23:00)
[2019-03-19 00:14] LABS: Glucose,Whole Blood 245 mg/dL (75-99)
[2019-03-19 01:09] LABS: Glucose,Whole Blood 332 mg/dL (75-99)
[2019-03-19 02:08] VITALS: RESP 16
[2019-03-19 02:19] LABS: Glucose,Whole Blood 330 mg/dL (75-99)
[2019-03-19 03:16] LABS: Glucose,Whole Blood 377 mg/dL (75-99)
[2019-03-19 04:11] LABS: Glucose,Whole Blood 383 mg/dL (75-99)
[2019-03-19 05:05] LABS: Glucose,Whole Blood 386 mg/dL (75-99)
[2019-03-19 06:09] LABS: Glucose,Whole Blood 355 mg/dL (75-99)
[2019-03-19] MEDS ORDERED: INSULIN DETEMIR (LEVEMIR) 100 UNIT/ML SYR SQ STA (06:15)
[2019-03-19] MEDS ORDERED: SODIUM CHLORIDE 0.9% 1,000 ML IV SCH (06:30)
[2019-03-19] MEDS ORDERED: LEVOTHYROXINE 75 MCG TAB PO SCH (06:30)
[2019-03-19] MEDS: INSULIN ASPART (NovoLOG) 100 UNIT/ML VIAL SQ SCH ×2 (07:32→12:09)
[2019-03-19 07:48] LABS: Glucose,Whole Blood 360 mg/dL (75-99)
[2019-03-19 08:17] LABS: Glucose,Whole Blood 384 mg/dL (75-99)
[2019-03-19] MEDS ORDERED: METOPROLOL TARTRATE 25 MG TAB PO SCH (09:00)
[2019-03-19 09:07] LABS: Glucose,Whole Blood 312 mg/dL (75-99)
[2019-03-19 10:03] LABS: Glucose,Whole Blood 242 mg/dL (75-99)
[2019-03-19 11:05] LABS: Glucose,Whole Blood 210 mg/dL (75-99)
[2019-03-19 11:49] LABS: Glucose,Whole Blood 217 mg/dL (75-99)
[2019-03-19 13:49] LABS: Glucose,Whole Blood 233 mg/dL (75-99)
--- NOTE | 2019-03-19 14:27 | P.HPIM ---
History of Present Illness 63-year-old female was admitted secondary to syncope and hypoglycemia patient uses a [place] units of pre-meal insulin 21 units of Lantus. Patient was started 11 units of Lantus and 5 units of pre-meal insulin with which blood sugars are bit higher now. line pilot evaluated the patient patient received diabetic education patient blood sugars are doing fine now will be discharged today with 15 units of Lantus at in the 4 units of pre-meal insulin may require more than this. Patient was asked to closely follow up with primary care physician and her spiritual advisor as an outpatient patient blood sugars were not to as low as 41 patient denied any chest pain shortness of breath nausea vomiting diarrhea. Review of Systems REVIEW OF SYSTEMS: CONSTITUTIONAL: No fever, no malaise, no fatigue. HEENT: No recent visual problems or hearing problems. Denied any sore throat. CARDIOVASCULAR: No chest pain, orthopnea, PND, no palpitations, no syncope. PULMONARY: No shortness of breath, no cough, no hemoptysis. GASTROINTESTINAL: No diarrhea, no nausea, no vomiting, no abdominal pain. NEUROLOGICAL: No headaches, no weakness, no numbness. HEMATOLOGICAL: Denies any bleeding or petechiae. GENITOURINARY: Denies any burning micturition, frequency, or urgency. MUSCULOSKELETAL/RHEUMATOLOGICAL: Denies any joint pain, swelling, or any muscle pain. ENDOCRINE: Denies any polyuria or polydipsia. The rest of the 14-point review of systems is negative. 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 Needs to use a child's one. mother has diff coming out Past Psychological History: No Psychological Hx Reported Additional Psychological History / Comment(s): Single but lives with adult children and grandchildren. Was in the stationed in the [facility] mostly in [facility]. Denies international travel. No animals in the home. Does not live on a farm. Not noted to have a significant alcohol or recreational drug use Smoking Status: Never smoker Past Alcohol Use History: None Reported Past Drug Use History: None Reported - Past Family History Mother Family Medical History: Thyroid Disorder Additional Family Medical History / Comment(s): thyroid removed Father Family Medical History: Myocardial Infarction ([place]) Medications and Allergies Home Medications Medication Instructions Recorded Confirmed Type Metoprolol Tartrate 25 mg PO BID 08/07/16 03/18/19 History Levothyroxine Sodium [Synthroid] 75 mcg PO DAILY 11/27/17 03/18/19 History Atorvastatin [Lipitor] 40 mg PO HS 09/22/18 03/18/19 History Apixaban [Eliquis] 5 mg PO BID #60 tab 09/28/18 03/18/19 Rx INSULIN ASPART (NovoLOG) [NovoLOG 4 unit SQ AC-TID #1 vial 03/19/19 03/18/19 Rx (formulary)] Insulin Detemir (Levemir) [Levemir] 15 unit SQ HS #0 03/19/19 03/18/19 Rx Allergies Allergy/AdvReac Type Severity Reaction Status Date / Time Penicillins Allergy Unknown Verified 03/18/19 20:42 Physical Exam Vitals: Vital Signs Temp Pulse Pulse Resp BP BP Pulse Ox 03/19/19 07:35 16 03/19/19 07:18 98.0 F 75 16 132/84 96 03/19/19 03:22 16 03/19/19 03:00 97.5 F L 72 20 131/76 96 03/19/19 00:30 16 03/19/19 00:10 97.5 F L 72 20 131/76 96 03/18/19 23:40 97.9 F 03/18/19 23:30 73 16 124/77 98 03/18/19 23:00 124/77 03/18/19 21:23 71 18 124/77 99 03/18/19 20:30 127/84 99 03/18/19 20:19 97.6 F 64 16 127/84 100 03/18/19 20:17 100 Intake and Output 03/18/19 03/19/19 03/19/19 22:59 06:59 14:59 Other: # Voids 3 Weight 68.039 kg PHYSICAL EXAMINATION: GENERAL: The patient is alert and oriented x3, not in any acute distress. Well developed, well nourished. HEENT: Pupils are round and equally reacting to light. EOMI. No scleral icterus. No conjunctival pallor. Normocephalic, atraumatic. No pharyngeal erythema. No thyromegaly. CARDIOVASCULAR: S1 and S2 present. No murmurs, rubs, or gallops. PULMONARY: Chest is clear to auscultation, no wheezing or crackles. ABDOMEN: Soft, nontender, nondistended, normoactive bowel sounds. No palpable organomegaly. MUSCULOSKELETAL: No joint swelling or deformity. EXTREMITIES: No cyanosis, clubbing, or pedal edema. NEUROLOGICAL: Gross neurological examination did not reveal any focal deficits. SKIN: No rashes. Results CBC & Chem 7: 03/18/19 20:38 03/18/19 20:38 Labs: Abnormal Lab Results - Last 24 Hours (Table) 03/18/19 03/18/19 03/18/19 Range/Units 20:18 20:38 21:57 BUN 21 H (7-17) mg/dL Glucose 33 L* (74-99) mg/dL POC Glucose (mg/dL) 103 H 100 H (75-99) mg/dL AST 40 H (14-36) U/L Alkaline Phosphatase 37 L (38-126) U/L 03/18/19 03/19/19 03/19/19 Range/Units 22:56 00:12 01:06 BUN (7-17) mg/dL Glucose (74-99) mg/dL POC Glucose (mg/dL) 156 H 245 H 332 H (75-99) mg/dL AST (14-36) U/L Alkaline Phosphatase (38-126) U/L 03/19/19 03/19/19 03/19/19 Range/Units 02:01 03:15 03:58 BUN (7-17) mg/dL Glucose (74-99) mg/dL POC Glucose (mg/dL) 330 H 377 H 383 H (75-99) mg/dL AST (14-36) U/L Alkaline Phosphatase (38-126) U/L 03/19/19 03/19/19 03/19/19 Range/Units 05:00 06:05 07:06 BUN (7-17) mg/dL Glucose (74-99) mg/dL POC Glucose (mg/dL) 386 H 355 H 360 H (75-99) mg/dL AST (14-36) U/L Alkaline Phosphatase (38-126) U/L 03/19/19 03/19/19 03/19/19 Range/Units 07:57 09:05 10:00 BUN (7-17) mg/dL Glucose (74-99) mg/dL POC Glucose (mg/dL) 384 H 312 H 242 H (75-99) mg/dL AST (14-36) U/L Alkaline Phosphatase (38-126) U/L 03/19/19 03/19/19 03/19/19 Range/Units 11:03 11:46 13:46 BUN (7-17) mg/dL Glucose (74-99) mg/dL POC Glucose (mg/dL) 210 H 217 H 233 H (75-99) mg/dL AST (14-36) U/L Alkaline Phosphatase (38-126) U/L Thrombosis Risk Factor Assmnt - Choose All That Apply Any of the Below Risk Factors Present?: Yes Each Factor Represents 1 point: Obesity (BMI >25) Each Risk Factor Represents 2 Points: Age 61-74 years Other congenital or acquired thrombophilia - If yes, enter type in comment: No Thrombosis Risk Factor Assessment Total Risk Factor Score: 3 Thrombosis Risk Factor Assessment Level: Moderate Risk Assessment and Plan Plan: hypoglycemia: Insulin doses were decreased patient received diabetic education. Patient is clinically doing well and can be discharged today -Syncope secondary to hypoglycemia -Hypertension -Hypothyroidism -Hyperlipidemia For these may chronic stable medical condition patient will resume her medications. Patient will be discharged today with the above-mentioned the insulin regimen changes. Asked to check the blood sugars 3 times a day before meals and at bedtime
--- NOTE | 2019-03-19 14:28 | P.DS ---
Providers Date of admission: 03/18/19 23:00 Attending physician: Amee Polanco Primary care physician: Stated None Hospital Course: please refer to my HPI Patient Condition at Discharge: Fair Plan - Discharge Summary Discharge Rx Participant: No New Discharge Prescriptions: Continue Metoprolol Tartrate 25 mg PO BID Levothyroxine Sodium [Synthroid] 75 mcg PO DAILY Atorvastatin [Lipitor] 40 mg PO HS Apixaban [Eliquis] 5 mg PO BID #60 tab Changed Insulin Detemir (Levemir) [Levemir] 15 unit SQ HS #0 INSULIN ASPART (NovoLOG) [NovoLOG (formulary)] 4 unit SQ AC-TID #1 vial Discharge Medication List Metoprolol Tartrate 25 mg PO BID 08/07/16 [History] Levothyroxine Sodium [Synthroid] 75 mcg PO DAILY 11/27/17 [History] Atorvastatin [Lipitor] 40 mg PO HS 09/22/18 [History] Apixaban [Eliquis] 5 mg PO BID #60 tab 09/28/18 [Rx] INSULIN ASPART (NovoLOG) [NovoLOG (formulary)] 4 unit SQ AC-TID #1 vial 03/19/19 [Rx] Insulin Detemir (Levemir) [Levemir] 15 unit SQ HS #0 03/19/19 [Rx] Follow up Appointment(s)/Referral(s): aJyne Omer MD [REFERRING] - 03/20/19 10:15 am Farida Rosenbaum DO [REFERRING] - 03/26/19 1:45 pm (At [facility]) Patient Instructions/Handouts: Hypoglycemia in a Person with Diabetes (DC) Discharge Disposition: HOME SELF-CARE
[2019-03-19 15:02] VITALS: BP 105/69; PULSE 74; TEMP 98.1
== END 2019-03-19 16:46 | disposition home or self-care (01) ==
LOC: EC 20:11 → 4SSUR 23:00
PROVIDERS: ADMIT Hospitalist; ATTEND Hospitalist
DX: E11.649 Type 2 diabetes mellitus with hypoglycemia without coma (principal); K21.9 Gastro-esophageal reflux disease without esophagitis; I48.91 Unspecified atrial fibrillation; G47.30 Sleep apnea, unspecified; M19.90 Unspecified osteoarthritis, unspecified site; R55 Syncope and collapse; E06.3 Autoimmune thyroiditis; E04.1 Nontoxic single thyroid nodule; E66.9 Obesity, unspecified; Z68.26 Body mass index [BMI] 26.0-26.9, adult; E03.9 Hypothyroidism, unspecified; E78.5 Hyperlipidemia, unspecified; I10 Essential (primary) hypertension; Z79.4 Long term (current) use of insulin; Z79.890 Hormone replacement therapy; Z79.899 Other long term (current) drug therapy; Z79.01 Long term (current) use of anticoagulants; Z88.0 Allergy status to penicillin; Z98.84 Bariatric surgery status; Z90.49 Acquired absence of other specified parts of digestive tract; Z90.721 Acquired absence of ovaries, unilateral; Z86.73 Personal history of transient ischemic attack (TIA), and cerebral infarction without residual deficits; Z99.89 Dependence on other enabling machines and devices; Z82.49 Family history of ischemic heart disease and other diseases of the circulatory system; Z83.49 Family history of other endocrine, nutritional and metabolic diseases
CPT/HCPCS: 96366 ×2; 96376; 96365; 99285; 36415; 93005; 80053; 83735; 84484; 85025; 85610; 85730; 71046; G0378 ×2

== ENCOUNTER → 2019-06-21 | Outpatient (CLI) | payer OTHER ==
--- NOTE | 2019-06-25 08:14 | MM ---
Reason for exam: screening (asymptomatic). Last mammogram was performed 2 years and 9 months ago. History: Patient is postmenopausal. Physical Findings: A clinical breast exam by your physician is recommended on an annual basis and results should be correlated with mammographic findings. MG Screening Mammo w CAD Bilateral CC and MLO view(s) were taken. Prior study comparison: September 20, 2016, bilateral MG screening mammo w CAD. August 14, 2014, bilateral MG screening mammo w CAD. The breast tissue is heterogeneously dense. This may lower the sensitivity of mammography. No suspicious abnormality. No significant changes when compared with prior studies. ASSESSMENT: Negative, BI-RAD 1 RECOMMENDATION: Routine screening mammogram of both breasts in 1 year.
== END | disposition home or self-care (01) ==
LOC: RADMAMWWP 13:26
DX: Z12.31 Encounter for screening mammogram for malignant neoplasm of breast (principal); Z88.0 Allergy status to penicillin
CPT/HCPCS: 77067

== ENCOUNTER → 2019-08-07 | Outpatient (CLI) | payer OTHER ==
--- NOTE | 2019-08-07 15:26 | BD ---
EXAMINATION TYPE: Axial Bone Density DATE OF EXAM: 08/07/2019 COMPARISON: Prior DEXA bone scan 12.27.2011 CLINICAL HISTORY: 64 YR OLD FEMALE...ICD-10 CODE: Z13.820 OSTEOPOROSIS SCREENING Height: 61.4 Weight: 150 FRAX RISK QUESTIONS: History of Fracture in Adulthood: YES Secondary Osteoporosis: YES 1. Type 1 Diabetes: YES 3. Menopause before 45: YES RISK FACTORS HISTORY OF: HX OF ANKLE BREAK, AT 60 YRS OLD Postmenopausal woman: AT AGE 41 YRS OLD Hyperparathyroidism: NO Adrenal Insufficiency: NO MEDICATIONS: Thyroid Medications: YES, SYNTHROID, FOR ABOUT 10-15 YRS Additional Medications: INSULIN, REFLUX MEDS, CALCIUM, HEART AND STROKE MEDS Additional History: DIABETIC, HX OF STROKE , REFLUX EXAM MEASUREMENTS: Bone mineral densitometry was performed using the [employer] System. Bone mineral density as measured about the Lumbar spine is: ----- L1-L4(G/cm2): 0.858 T Score Values are as follows: ----- L1: -2.3 ----- L2: -2.8 ----- L3: -3.2 ----- L4: -2.6 ----- L1-L4: -2.7 Bone mineral density has: Decreased -6.4% since study of: 12.27.2011 Bone mineral density about the R hip (g/cm2): 0.648 Bone mineral density about the L hip (g/cm2): 0.728 T Score values are as follows: -----R Neck: -2.6 -----L Neck: -2.2 -----R Total: -2.9 -----L Total: -2.2 Bone mineral density has: Decreased -5.5% since study of: 12.27.2011 FRAX%s: THERE IS A 22.2% CHANCE FOR A MAJOR OSTEOPOROTIC FX AND A 5.1% FOR HIP....PROBABILITY FOR F X IN 10 YRS TIME IMPRESSION: Osteoporosis (T Score less than -2.5) is now present in low back and right hip. There is increased fracture risk and therapy is usually indicated based on age. Re-Screen 1-2 years. NOTE: T-SCORE=SD OF THE YOUNG ADULT MEAN.
== END | disposition home or self-care (01) ==
LOC: RADBDWWP 12:32
DX: Z13.820 Encounter for screening for osteoporosis (principal); M81.0 Age-related osteoporosis without current pathological fracture
CPT/HCPCS: 77080

== ENCOUNTER → 2019-08-08 | Outpatient (CLI) | payer BC, MEDICARE, OTHER ==
--- NOTE | 2019-08-09 08:57 | US ---
EXAMINATION TYPE: US thyroid st tissue head/neck DATE OF EXAM: 08/08/2019 COMPARISON: 10/13/2015 CLINICAL HISTORY: E04.1 LT THYROID NODULE. previous left thyroid nodule, on thyroid meds, hx bx GLAND SIZE: Right Lobe: 4.1 x 2.1 x 1.9 cm Overall Parenchyma: heterogenous Left Lobe: 5.2 x 2.3 x 2.7 cm Overall Parenchyma: heterogeneous Isthmus Thickness: 0.6 cm NODULES RIGHT: # of nodules measured on right: 0 LEFT: # of nodules measured on left: 1 1. 2.6 X 2.4 x 1.9 cm mixed nodule at the lower pole with well-defined margins. This nodule is wid er than tall and shows intranodular vascularity. Prior size: 2.9 x 2.4 x 2.8 cm ISTHMUS: # of nodules measured in the isthmus: 0 Bilateral neck scanned, no evidence of lymphadenopathy. Left lobe appears enlarged in size. IMPRESSION: Enlarged left thyroid lobe with underlying solid nodule well essentially unchanged from prior study.
== END | disposition home or self-care (01) ==
LOC: RADUSWWP 16:00
PROVIDERS: ATTEND Internal Medicine
DX: E04.1 Nontoxic single thyroid nodule (principal)
CPT/HCPCS: 76536

== ENCOUNTER → 2020-08-05 | Outpatient (CLI) | payer MEDICARE, OTHER ==
--- NOTE | 2020-08-06 11:37 | MM ---
Reason for exam: screening (asymptomatic). Last mammogram was performed 1 year and 1 month ago. History: Patient is postmenopausal. Physical Findings: A clinical breast exam by your physician is recommended on an annual basis and results should be correlated with mammographic findings. MG 3D Screening Mammo W/Cad Bilateral CC and MLO view(s) were taken. Prior study comparison: June 21, 2019, bilateral MG screening mammo w CAD. September 20, 2016, bilateral MG screening mammo w CAD. The breast tissue is heterogeneously dense. This may lower the sensitivity of mammography. There is no discrete abnormality. ASSESSMENT: Negative, BI-RAD 1 RECOMMENDATION: Routine screening mammogram of both breasts in 1 year.
== END | disposition home or self-care (01) ==
LOC: RADMAMWWP 10:43
PROVIDERS: ATTEND Family Medicine
DX: Z12.31 Encounter for screening mammogram for malignant neoplasm of breast (principal)
CPT/HCPCS: 77063; 77067

== ENCOUNTER 2021-04-22 14:33 | Observation (INO) | payer MEDICARE ==
[2021-04-22] MEDS ORDERED: ASPIRIN 81 MG PO STA (15:39)
[2021-04-22] MEDS ORDERED: NITROGLYCERIN OINT 1 INCH/GM PACKET TOPICAL STA (15:39)
--- NOTE | 2021-04-22 15:43 | ED ---
General Adult HPI - General Chief complaint: Chest Pain Stated complaint: Chest pain Time Seen by Provider: 04/22/21 15:25 Source: patient, RN notes reviewed Mode of arrival: wheelchair Limitations: no limitations - History of Present Illness Initial comments: Patient is a pleasant 65-year-old female presenting to the emergency Department with complaints of chest discomfort. Onset of symptoms was 2 days ago. Discomfort feels like tightness with some radiation up towards the left shoulder. Symptoms do worsen with exertion. Patient does have some associated dyspnea. No nausea. No diaphoresis. Discomfort is currently rated 2 or 3/10 at rest. No leg pain or leg swelling. - Related Data Home Medications Medication Instructions Recorded Confirmed Metoprolol Tartrate 25 mg PO BID 08/07/16 04/22/21 INSULIN ASPART (NovoLOG) [NovoLOG See Protocol SQ AC-TID 04/22/21 04/22/21 (formulary)] Insulin Detemir (Levemir) [Levemir] 24 unit SQ HS 04/22/21 04/22/21 Polyvinyl Alcohol/Povidone 1 applic BOTH EYES QID 04/22/21 04/22/21 [[place]] Sodium Chloride 5% Ophth Oint 1 applic LEFT EYE HS 04/22/21 04/22/21 [Briseida 128] Previous Rx's Medication Instructions Recorded Apixaban [Eliquis] 5 mg PO BID #60 tab 09/28/18 Allergies Allergy/AdvReac Type Severity Reaction Status Date / Time Penicillins Allergy Unknown Verified 04/22/21 16:03 Review of Systems ROS Statement: Those systems with pertinent positive or pertinent negative responses have been documented in the HPI. ROS Other: All systems not noted in ROS Statement are negative. Constitutional: Denies: fever Eyes: Denies: eye pain ENT: Denies: ear pain Respiratory: Reports: as per HPI. 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 Needs to use a child's one. mother has diff coming out Past Psychological History: No Psychological Hx Reported Smoking Status: Never smoker Past Alcohol Use History: None Reported Past Drug Use History: None Reported - Past Family History Mother Family Medical History: Thyroid Disorder Additional Family Medical History / Comment(s): thyroid removed Father Family Medical History: Myocardial Infarction ([place]) General Exam Limitations: no limitations General appearance: alert, in no apparent distress Head exam: Present: normocephalic Eye exam: Present: normal appearance Neck exam: Present: normal inspection Respiratory exam: Present: normal lung sounds bilaterally. Absent: chest wall tenderness Cardiovascular Exam: Present: regular rate, normal rhythm, normal heart sounds Expanded Peripheral pulses: 2+: Radial (R), Radial (L), Dorsalis Pedis (R), Dorsalis Pedis (L) GI/Abdominal exam: Present: soft. Absent: tenderness Extremities exam: Present: normal inspection. Absent: pedal edema, calf tenderness Neurological exam: Present: alert Psychiatric exam: Present: normal affect, normal mood Skin exam: Present: normal color Course Vital Signs 04/22/21 04/22/21 14:38 16:00 Temperature 98 F Pulse Rate 90 86 Respiratory 16 18 Rate Blood Pressure 120/78 122/76 O2 Sat by Pulse 97 98 Oximetry EKG Findings - EKG Comments: EKG Findings:: Normal sinus rhythm with rate 87. OH 176. QRS 74. QT 36. QTc 464. Left axis. Normal QRS. Nonspecific T waves. Medical Decision Making - Medical Decision Making Patient reevaluated. Patient updated on results and plan. Dr. Polanco has been paged covering for Dr. Rico nv for admission. - Lab Data Result diagrams: 04/22/21 16:03 04/22/21 16:03 Lab Results 04/22/21 04/22/21 04/22/21 Range/Units 16:03 16:03 16:03 WBC 4.2 (3.8-10.6) k/uL RBC 4.48 (3.80-5.40) m/uL Hgb 13.6 (11.4-16.0) gm/dL Hct 41.1 (34.0-46.0) % MCV 91.8 (80.0-100.0) fL MCH 30.3 (25.0-35.0) pg MCHC 33.0 (31.0-37.0) g/dL RDW 13.0 (11.5-15.5) % Plt Count 261 (150-450) k/uL MPV 7.3 Neutrophils % 66 % Lymphocytes % 23 % Monocytes % 7 % Eosinophils % 2 % Basophils % 1 % Neutrophils # 2.8 (1.3-7.7) k/uL Lymphocytes # 1.0 (1.0-4.8) k/uL Monocytes # 0.3 (0-1.0) k/uL Eosinophils # 0.1 (0-0.7) k/uL Basophils # 0.0 (0-0.2) k/uL PT 9.8 (9.0-12.0) sec INR 0.9 (<1.2) APTT 21.2 L (22.0-30.0) sec D-Dimer 0.19 (<0.60) mg/L FEU Sodium 137 (137-145) mmol/L Potassium 4.3 (3.5-5.1) mmol/L Chloride 99 (98-107) mmol/L Carbon Dioxide 29 (22-30) mmol/L Anion Gap 9 mmol/L BUN 20 H (7-17) mg/dL Creatinine 0.74 (0.52-1.04) mg/dL Est GFR (CKD-EPI)AfAm >90 (>60 ml/min/1.73 sqM) Est GFR (CKD-EPI)NonAf 85 (>60 ml/min/1.73 sqM) Glucose 119 H (74-99) mg/dL Calcium 10.1 (8.4-10.2) mg/dL Magnesium 2.0 (1.6-2.3) mg/dL Total Bilirubin 0.3 (0.2-1.3) mg/dL AST 29 (14-36) U/L ALT 18 (4-34) U/L Alkaline Phosphatase 66 (38-126) U/L Troponin I (0.000-0.034) ng/mL NT-Pro-B Natriuret Pep pg/mL Total Protein 7.5 (6.3-8.2) g/dL Albumin 4.4 (3.5-5.0) g/dL 04/22/21 04/22/21 Range/Units 16:03 16:03 WBC (3.8-10.6) k/uL RBC (3.80-5.40) m/uL Hgb (11.4-16.0) gm/dL Hct (34.0-46.0) % MCV (80.0-100.0) fL MCH (25.0-35.0) pg MCHC (31.0-37.0) g/dL RDW (11.5-15.5) % Plt Count (150-450) k/uL MPV Neutrophils % % Lymphocytes % % Monocytes % % Eosinophils % % Basophils % % Neutrophils # (1.3-7.7) k/uL Lymphocytes # (1.0-4.8) k/uL Monocytes # (0-1.0) k/uL Eosinophils # (0-0.7) k/uL Basophils # (0-0.2) k/uL PT (9.0-12.0) sec INR (<1.2) APTT (22.0-30.0) sec D-Dimer (<0.60) mg/L FEU Sodium (137-145) mmol/L Potassium (3.5-5.1) mmol/L Chloride (98-107) mmol/L Carbon Dioxide (22-30) mmol/L Anion Gap mmol/L BUN (7-17) mg/dL Creatinine (0.52-1.04) mg/dL Est GFR (CKD-EPI)AfAm (>60 ml/min/1.73 sqM) Est GFR (CKD-EPI)NonAf (>60 ml/min/1.73 sqM) Glucose (74-99) mg/dL Calcium (8.4-10.2) mg/dL Magnesium (1.6-2.3) mg/dL Total Bilirubin (0.2-1.3) mg/dL AST (14-36) U/L ALT (4-34) U/L Alkaline Phosphatase (38-126) U/L Troponin I <0.012 (0.000-0.034) ng/mL NT-Pro-B Natriuret Pep 451 pg/mL Total Protein (6.3-8.2) g/dL Albumin (3.5-5.0) g/dL - Radiology Data Radiology results: image reviewed (Chest x-ray shows no acute process.) Disposition Clinical Impression: Chest pain Disposition: ADMITTED IP TO THIS HOSP Is patient prescribed a controlled substance at d/c from ED?: No Referrals: Sebastien Solomon DO [Primary Care Provider] - 1-2 days Decision Time: 16:55
[2021-04-22 16:11] LABS: Basophils % (A) 1 %; Eosinophils # (A) 0.1 k/uL (0-0.7); Eosinophils % (A) 2 %; HCT 41.1 % (34.0-46.0); HGB 13.6 gm/dL (11.4-16.0); Lymphocytes % (A) 23 %; MCH 30.3 pg (25.0-35.0); MCV 91.8 fL (80.0-100.0); Mean Platelet Volume 7.3; Monocytes # (A) 0.3 k/uL (0-1.0); Monocytes % (A) 7 %; Neutrophils # (A) 2.8 k/uL (1.3-7.7); Neutrophils % (A) 66 %; Platelet Count 261 k/uL (150-450); RBC 4.48 m/uL (3.80-5.40); WBC 4.2 k/uL (3.8-10.6)
[2021-04-22 16:25] LABS: ALT 18 U/L (4-34); AST 29 U/L (14-36); African American GFR (CKD) >90 (>60 ml/min/1.73 sqM); Albumin 4.4 g/dL (3.5-5.0); Alkaline Phosphatase 66 U/L (38-126); Anion Gap 9 mmol/L; Blood Urea Nitrogen 20 mg/dL (7-17); Calcium 10.1 mg/dL (8.4-10.2); Carbon Dioxide 29 mmol/L (22-30); Chloride 99 mmol/L (98-107); Glucose 119 mg/dL (74-99); Non-African American GFR(CKD) 85 (>60 ml/min/1.73 sqM); Potassium 4.3 mmol/L (3.5-5.1); Sodium 137 mmol/L (137-145); Total Bilirubin 0.3 mg/dL (0.2-1.3); Total Protein 7.5 g/dL (6.3-8.2)
--- NOTE | 2021-04-22 16:27 | XR ---
EXAMINATION TYPE: XR chest 2V DATE OF EXAM: 04/22/2021 COMPARISON: 03/18/2019 TECHNIQUE: PA and lateral views submitted. HISTORY: Chest pain FINDINGS: The lungs are clear and there is no pneumothorax, pleural effusion, or focal pneumonia. Mild hyperi nflation. Diffuse osteopenia. No overt failure. Retrosternal density on the lateral malleolus indeter minate etiology not clearly seen on the frontal view and may be superficial to the patient correlate clinically. IMPRESSION: 1. No acute process. Mild hyperinflation correlate for COPD.
[2021-04-22 16:35] LABS: D-Dimer 0.19 mg/L FEU (<0.60); INR 0.9 (<1.2); Prothrombin Time 9.8 sec (9.0-12.0)
[2021-04-22 16:38] LABS: Partial Thromboplastin Time 21.2 sec (22.0-30.0)
[2021-04-22] MEDS ORDERED: NITROGLYCERIN SL TABS 0.4 MG TAB SUBLINGUAL PRN (19:01)
[2021-04-23] MEDS: NITROGLYCERIN OINT 1 INCH/GM PACKET TOPICAL SCH ×2 (00:28→08:04)
[2021-04-23 08:04] VITALS: RESP 18
[2021-04-23] MEDS ORDERED: ASPIRIN 325 MG TAB PO SCH (09:00)
[2021-04-23 10:54] LABS: Chol/HDL Ratio 3.16; LDL Cholesterol,Calculated 143.6 mg/dL (0.0-131.0); VLDL Calculation 29.4 mg/dL (5.00-40.00)
--- NOTE | 2021-04-23 13:00 | ECHOF ---
Referral Reason: MEASUREMENTS -------- HEIGHT: 160.0 cm WEIGHT: 68.0 kg BP: RVIDd: 2.8 cm (< 3.3) IVSd: 1.1 cm (0.6 - 1.1) LVIDd: 3.8 cm (3.9 - 5.3) LVPWd: 0.9 cm (0.6 - 1.1) IVSs: 1.3 cm LVIDs: 2.2 cm LVPWs: 1.0 cm LA Diam: 2.8 cm (2.7 - 3.8) Ao Diam: 2.7 cm (2.0 - 3.7) AV Cusp: 2.1 cm (1.5 - 2.6) MV EXCURSION: 9.761 mm (> 18.000) MV EF SLOPE: 34 mm/s (70 - 150) EPSS: 0.7 cm MV E Vicente: 0.69 m/s MV DecT: 226 ms MV A Vicente: 1.07 m/s MV E/A Ratio: 0.64 FINDINGS -------- Sinus rhythm. This was a technically adequate study. The left ventricular size is normal. Left ventricular wall thickness is normal. Overall left vent ricular systolic function is normal with, an EF between 60 - 65 %. The right ventricle is normal in size. The left atrium is normal in size. The right atrium is normal in size. Aneurysmal Interatrial septum. The aortic valve is trileaflet, and appears structurally normal. No aortic stenosis or regurgitation. The mitral valve is normal. Trace tricuspid regurgitation present. There is no pulmonic regurgitation present. The aortic root size is normal. Normal inferior vena cava with normal inspiratory collapse consistent with estimated right atrial pre ssure of 5 mmHg. There is no pericardial effusion. CONCLUSIONS -------- 1. The left ventricular size is normal. 2. Left ventricular wall thickness is normal. 3. Overall left ventricular systolic function is normal with, an EF between 60 - 65 %. 4. Aneurysmal Interatrial septum. 5. The aortic valve is trileaflet, and appears structurally normal. No aortic stenosis or regurgitati on. 6. Trace tricuspid regurgitation present. 7. There is no pulmonic regurgitation present. 8. There is no pericardial effusion. VAC PRESS OPERATOR: Carolina Yang RDCS
--- NOTE | 2021-04-23 13:55 | P.HPIM ---
History of Present Illness Patient was 65-year-old female came in with complains of lightheadedness. She denied any chest pain to me although patient was admitted for chest pain rule out. Patient was evaluated by cardiology. Apparently she complained about chest tightness with radiation to the left shoulder. Patient had an EKG which showed normal sinuses rhythm with nonspecific ST-T wave abnormalities echocardiogram is within normal limits patient underwent stress test. Patient is not a great historian unsure whether she has atrial fibrillation. Although patient is on metoprolol and Eliquis. There is no documented the atrial fibrillation in the medical records here. Patient had a cerebrovascular accident in the past patient presently doesn't have any residual weakness. Discussed with policy analyst and if stress test is negative because of her continued lightheadedness with this can you metoprolol which is presently being held in spite of which her heart rate is fairly stable well controlled and is in sinus rhythm. Patient will follow-up with the her policy analyst. Review of Systems REVIEW OF SYSTEMS: CONSTITUTIONAL: No fever, no malaise, no fatigue. HEENT: No recent visual problems or hearing problems. Denied any sore throat. CARDIOVASCULAR: No orthopnea, PND, no palpitations, no syncope. PULMONARY: No shortness of breath, no cough, no hemoptysis. GASTROINTESTINAL: No diarrhea, no nausea, no vomiting, no abdominal pain. NEUROLOGICAL: No headaches, no weakness, no numbness. HEMATOLOGICAL: Denies any bleeding or petechiae. GENITOURINARY: Denies any burning micturition, frequency, or urgency. MUSCULOSKELETAL/RHEUMATOLOGICAL: Denies any joint pain, swelling, or any muscle pain. ENDOCRINE: Denies any polyuria or polydipsia. The rest of the 14-point review of systems is negative. 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 Needs to use a child's one. mother has diff coming out Past Psychological History: No Psychological Hx Reported Smoking Status: Never smoker Past Alcohol Use History: None Reported Past Drug Use History: None Reported - Past Family History Mother Family Medical History: Thyroid Disorder Additional Family Medical History / Comment(s): thyroid removed Father Family Medical History: Myocardial Infarction (MS) Medications and Allergies Home Medications Medication Instructions Recorded Confirmed Type Apixaban [Eliquis] 5 mg PO BID #60 tab 09/28/18 04/22/21 Rx INSULIN ASPART (NovoLOG) [NovoLOG See Protocol SQ AC-TID 04/22/21 04/22/21 History (formulary)] Insulin Detemir (Levemir) [Levemir] 24 unit SQ HS 04/22/21 04/22/21 History Polyvinyl Alcohol/Povidone 1 applic BOTH EYES QID 04/22/21 04/22/21 History [[place] Eye Drop] Sodium Chloride 5% Ophth Oint 1 applic LEFT EYE HS 04/22/21 04/22/21 History [Briseida 128] Allergies Allergy/AdvReac Type Severity Reaction Status Date / Time Penicillins Allergy Unknown Verified 04/22/21 16:03 Physical Exam Vitals: Vital Signs Temp Pulse Resp BP Pulse Ox 04/23/21 12:46 97.8 F 98 18 124/70 99 04/23/21 08:02 97.6 F 89 18 114/68 97 04/23/21 04:00 78 19 125/82 04/22/21 23:00 78 14 118/65 04/22/21 21:00 87 15 114/68 04/22/21 20:00 78 13 04/22/21 19:00 81 14 04/22/21 18:30 72 18 127/72 99 04/22/21 17:00 80 18 108/54 98 04/22/21 16:00 86 18 122/76 98 04/22/21 14:38 98 F 90 16 120/78 97 Intake and Output 04/22/21 04/23/21 04/23/21 22:59 06:59 14:59 Other: Weight 68.04 kg PHYSICAL EXAMINATION: GENERAL: The patient is alert and oriented x3, not in any acute distress. Well developed, well nourished. HEENT: Pupils are round and equally reacting to light. EOMI. No scleral icterus. No conjunctival pallor. Normocephalic, atraumatic. No pharyngeal erythema. No thyromegaly. CARDIOVASCULAR: S1 and S2 present. No murmurs, rubs, or gallops. PULMONARY: Chest is clear to auscultation, no wheezing or crackles. ABDOMEN: Soft, nontender, nondistended, normoactive bowel sounds. No palpable organomegaly. MUSCULOSKELETAL: No joint swelling or deformity. EXTREMITIES: No cyanosis, clubbing, or pedal edema. NEUROLOGICAL: Gross neurological examination did not reveal any focal deficits. SKIN: No rashes. Results CBC & Chem 7: 04/22/21 16:03 04/22/21 16:03 Labs: Abnormal Lab Results - Last 24 Hours (Table) 04/22/21 04/22/21 04/22/21 Range/Units 16:03 16:03 16:03 APTT 21.2 L (22.0-30.0) sec BUN 20 H (7-17) mg/dL Glucose 119 H (74-99) mg/dL Cholesterol 253 H (0-200) mg/dL LDL Cholesterol, Calc 143.6 H (0.0-131.0) mg/dL HDL Cholesterol 80.0 H (40.0-60.0) mg/dL Assessment and Plan Plan: Lightheadedness: Etiology is not clear patient is not in A. fib at this time unsure patient had atrial fibrillation in the past. Patient may be bit hypotensive which is contributing to her lightheadedness patient is on low-dose of metoprolol which will be discontinued. Patient will follow up with her policy analyst as an outpatient. Echocardiac within normal limits. Patient had a stress test if that's negative patient will be discharged. -CVA/TIA in the past patient is an echo scheduled continue -Type 2 diabetes mellitus epigastric region reflux disease -Hypothyroidism
--- NOTE | 2021-04-23 13:59 | P.DS ---
Providers Date of admission: 04/22/21 19:02 Attending physician: Amee Polanco Consults: 04/22/21 19:02 Consult Physician Urgent Consulting Provider: Satya Payan Consult Reason/Comments: cp Do you want consulting provider notified?: Yes Primary care physician: Sebastien Solomon [facility] Course: Refer to my history of present illness for further details Plan - Discharge Summary New Discharge Prescriptions: Continue Apixaban [Eliquis] 5 mg PO BID #60 tab Insulin Detemir (Levemir) [Levemir] 24 unit SQ HS Sodium Chloride 5% Ophth Oint [Briseida 128] 1 applic LEFT EYE HS Polyvinyl Alcohol/Povidone [[place] Eye Drop] 1 applic BOTH EYES QID INSULIN ASPART (NovoLOG) [NovoLOG (formulary)] See Protocol SQ AC-TID Discontinued Metoprolol Tartrate 25 mg PO BID Discharge Medication List Apixaban [Eliquis] 5 mg PO BID #60 tab 09/28/18 [Rx] INSULIN ASPART (NovoLOG) [NovoLOG (formulary)] See Protocol SQ AC-TID 04/22/21 [History] Insulin Detemir (Levemir) [Levemir] 24 unit SQ HS 04/22/21 [History] Polyvinyl Alcohol/Povidone [[place] Eye Drop] 1 applic BOTH EYES QID 04/22/21 [History] Sodium Chloride 5% Ophth Oint [Briseida 128] 1 applic LEFT EYE HS 04/22/21 [History] Follow up Appointment(s)/Referral(s): Yvonne Goodson MD [STAFF PHYSICIAN] - 2 Weeks Sebastien Solomon DO [Primary Care Provider] - 3 Days Discharge Disposition: HOME SELF-CARE
--- NOTE | 2021-04-23 15:22 | CONS ---
CONSULTATION CHIEF COMPLAINT: Chest pain. HISTORY OF PRESENT ILLNESS: Madison is a 65-year-old lady with a history of prior TIA and insulin-requiring diabetes, who presented to the hospital complaining of chest discomfort. She complains of sharp precordial chest pain. It is mild intensity without definite radiation to neck, arm or back. It is unrelated to exertion and unassociated with diaphoresis. EKG shows sinus rhythm with nonspecific ST-T wave changes. Patient had 3 sets of cardiac enzymes that are all within normal limits. Coronavirus is negative. Given her unexplained chest pain and risk factors, I advised her to undergo a stress test for further evaluation. PAST MEDICAL HISTORY: Significant for TIA, and diabetes. MEDICATIONS: Medications at home include insulin, metoprolol, and Eliquis. ALLERGIC: PENICILLIN. FAMILY HISTORY: Negative for premature coronary artery disease. SOCIAL HISTORY: Negative for smoking, EtOH abuse, or drug abuse. REVIEW OF SYSTEMS: HEENT is unremarkable. CARDIAC as described above. RESPIRATORY negative. GI negative. GENITOURINARY: Negative. ALLERGY/IMMUNOLOGY: Negative. SKIN: Negative. MUSCULOSKELETAL: Significant for arthritis. PSYCHOSOCIAL negative. DERM negative. CONSTITUTIONAL: Negative. ONCOLOGICAL: Negative. EXHIBIT DISPLAY REPRESENTATIVE. Negative rest of the system review is not relevant. EXAM: The patient is comfortable at rest. Vital signs are stable. There is no jugular venous distention. Carotid upstroke is normal. There is no bruit. Chest exam reveals good air entry bilaterally. Heart exam reveals first and second heart sounds. No gallop. No murmur. No rub. Abdomen is soft. Exam of extremities did not reveal any edema. Peripheral pulses are felt. ASSESSMENT: Precordial chest pain. PLAN: I will obtain an echo and stress test for further evaluation. MMODL / IJN: [id number] /
[2021-04-23 15:46] VITALS: BP 124/72; PULSE 84; TEMP 97.7
--- NOTE | 2021-04-23 16:07 | EST ---
EXERCISE STRESS DATE OF SERVICE: 04/23/2021. INDICATION: Chest pain. AGE: 65 SEX: F HT: 5"3" WT: 150 lbs PROTOCOL: Wallace STAGE: 2 DURATION OF EXERCISE: 4:53 HEART RATE REST: 86 BLOOD PRESSURE REST: 126/73 MAXIMUM HEART RATE ACHIEVED: 131 MAXIMUM BLOOD PRESSURE: 157/73 85% MPHR: 130 100% MPHR: 153 METS: 6.4 RESULTS: Baseline EKG shows sinus rhythm, normal axis, normal intervals. Patient exercised on Wallace protocol for a total of 5 minutes achieving 6 METS, 86% of predicted maximal heart rate without chest pain or diagnostic ST-segment depression. Baseline echo shows normal left ventricular size, wall motion and systolic function. Postexercise there is normal hyperdynamic response of all segments of myocardium noted. CONCLUSIONS: 1. Limited exercise tolerance. 2. Negative stress test by EKG criteria. 3. Negative stress echo. MMODL / IJN: [id number] /
[2021-04-23] MEDS ORDERED: INSULIN ASPART (NovoLOG) 100 UNIT/ML VIAL SQ SCH (17:30)
[2021-04-23] MEDS ORDERED: INSULIN DETEMIR (LEVEMIR) 100 UNIT/ML SYR SQ SCH (21:00)
[2021-04-23] MEDS ORDERED: APIXABAN 5 MG TAB PO SCH (21:00)
== END 2021-04-23 15:45 | disposition home or self-care (01) ==
LOC: EC 14:33 → 6NMEDSUR 19:02
PROVIDERS: ADMIT Hospitalist; ATTEND Hospitalist
DX: R07.2 Precordial pain (principal); R42 Dizziness and giddiness; R61 Generalized hyperhidrosis; R06.00 Dyspnea, unspecified; E11.9 Type 2 diabetes mellitus without complications; K21.9 Gastro-esophageal reflux disease without esophagitis; I48.91 Unspecified atrial fibrillation; G47.30 Sleep apnea, unspecified; M19.90 Unspecified osteoarthritis, unspecified site; E03.9 Hypothyroidism, unspecified; E04.1 Nontoxic single thyroid nodule; Z20.822 Contact with and (suspected) exposure to COVID-19; Z79.4 Long term (current) use of insulin; Z79.01 Long term (current) use of anticoagulants; Z79.899 Other long term (current) drug therapy; Z88.0 Allergy status to penicillin; Z86.73 Personal history of transient ischemic attack (TIA), and cerebral infarction without residual deficits; Z86.39 Personal history of other endocrine, nutritional and metabolic disease; Z90.49 Acquired absence of other specified parts of digestive tract; Z98.84 Bariatric surgery status; Z90.721 Acquired absence of ovaries, unilateral; Z82.49 Family history of ischemic heart disease and other diseases of the circulatory system; Z83.49 Family history of other endocrine, nutritional and metabolic diseases; Z84.89 Family history of other specified conditions
CPT/HCPCS: 93005 ×2; 99285; 36415; 93306; 93351; 85379; 83880; 80061; 80053; 83735; 84484; 85025; 85610; 85730; 87635; 71046; G0378 ×2

== ENCOUNTER 2021-05-12 08:10 | Inpatient (IN) | payer MEDICARE ==
[2021-05-12 08:27] LABS: Glucose,Whole Blood >600 mg/dL (75-99)
[2021-05-12] MEDS ORDERED: SODIUM CHLORIDE 0.9% 2,000 ML IV STA (08:28)
--- NOTE | 2021-05-12 08:31 | ED ---
General Adult HPI - General Chief complaint: Altered Mental Status Stated complaint: altered mental status Time Seen by Provider: 05/12/21 08:11 Source: EMS Mode of arrival: EMS Limitations: altered mental status - History of Present Illness Initial comments: Dictation was produced using [employer] dictation software. please excuse any grammatical, word or spelling errors. Chief Complaint: 65-year-old female with past medical history of diabetes, A. fib this emergency department for altered mental status. History of Present Illness: 65-year-old female she was brought in by EMS from home. Patient was discovered to be minimally responsive at home by daughter. Patient allegedly has diabetes and takes insulin. EMS was called to the scene and was found to be hyperglycemic. Patient unable to provide HPI at this time. Unable able to obtain ROS secondary to the status PHYSICAL EXAM: General Impression: acute distress, [place] respirations, smells of acetone HEENT: Normocephalic atraumatic, extra-ocular movements intact, pupils equal and reactive to light bilaterally, dry mucous membranes Cardiovascular: Heart regular rate and rhythm Chest: [place] muscles respirations Abdomen: abdomen soft, diffuse tenderness to palpation, non-distended, no organomegaly Musculoskeletal: Pulses present and equal in all extremities, no peripheral edema Motor: no focal deficits noted Neurological: no focal motor or sensory deficits noted Skin: Intact with no visualized rashes, skin tenting ED course: 65-year-old female presents with altered mental status. Signs upon arrival shows temperature 97.3 rectal, heart rate of 117, respiratory rate of 26. Normal blood pressure and not hypoxic. Patient smells of acetone. There is concern for diabetic ketoacidosis. Laboratory evaluation obtained. Hemoglobin 9.4 with macrocytosis. This appears to be new since most recent labs. Coag panel is unremarkable. Metabolic panel shows venous pH of 6.89, pCO2 of 10 bicarb of 2. Acidosis with a bicarb of less than 5. Glucose 760. Acetone positive. Computed tomography scan of the brain is unremarkable. Chest x-ray is nonacute. Patient will be admitted for diabetic ketoacidosis.. At this point it is unclear what is causing patient to be DKA. Patient be admitted to ICU. EKG interpretation: Ventricular rate 1:15, sinus tachycardia, MI interval 176, QRS 88, QTc 459. No MI prolongation, no QTC prolongation, no ST or T-wave changes noted. - Related Data Home Medications Medication Instructions Recorded Confirmed INSULIN ASPART (NovoLOG) [NovoLOG See Protocol SQ AC-TID 04/22/21 04/22/21 (formulary)] Insulin Detemir (Levemir) [Levemir] 24 unit SQ HS 04/22/21 04/22/21 Polyvinyl Alcohol/Povidone 1 applic BOTH EYES QID 04/22/21 04/22/21 [Freshkote Eye Drop] Sodium Chloride 5% Ophth Oint 1 applic LEFT EYE HS 04/22/21 04/22/21 [Briseida 128] Previous Rx's Medication Instructions Recorded Apixaban [Eliquis] 5 mg PO BID #60 tab 09/28/18 Allergies Allergy/AdvReac Type Severity Reaction Status Date / Time Penicillins Allergy Unknown Verified 05/12/21 08:22 Review of Systems ROS Statement: Those systems with pertinent positive or pertinent negative responses have been documented in the HPI. ROS Other: All systems not noted in ROS Statement are negative. 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 Needs to use a child's one. mother has diff coming out Past Psychological History: No Psychological Hx Reported Smoking Status: Never smoker Past Alcohol Use History: None Reported Past Drug Use History: None Reported - Past Family History Mother Family Medical History: Thyroid Disorder Additional Family Medical History / Comment(s): thyroid removed Father Family Medical History: Myocardial Infarction (NM) General Exam Limitations: altered mental status Course Vital Signs 05/12/21 05/12/21 05/12/21 08:13 08:42 09:10 Temperature 97.3 F L 94 F L 93.7 F L Pulse Rate 117 H 114 H 107 H Respiratory 26 H 24 24 Rate Blood Pressure 114/80 101/44 O2 Sat by Pulse 97 99 Oximetry 05/12/21 10:00 Temperature 93.0 F L Pulse Rate 103 H Respiratory 34 H Rate Blood Pressure 92/39 O2 Sat by Pulse 100 Oximetry Medical Decision Making - Lab Data Result diagrams: 05/12/21 09:00 05/12/21 09:00 Lab Results 05/12/21 05/12/21 05/12/21 Range/Units 08:16 08:49 09:00 WBC 8.7 (3.8-10.6) k/uL RBC 3.03 L (3.80-5.40) m/uL Hgb 9.4 L D (11.4-16.0) gm/dL Hct 33.2 L (34.0-46.0) % MCV 109.8 H D (80.0-100.0) fL MCH 31.1 (25.0-35.0) pg MCHC 28.3 L (31.0-37.0) g/dL RDW 13.0 (11.5-15.5) % Plt Count 236 (150-450) k/uL MPV 8.2 Hypochromasia Marked Macrocytosis Marked A PT (9.0-12.0) sec INR (<1.2) APTT (22.0-30.0) sec VBG pH (7.31-7.41) VBG pCO2 (37-51) mmHg VBG HCO3 (24-28) mmol/L Sodium (137-145) mmol/L Potassium (3.5-5.1) mmol/L Chloride (98-107) mmol/L Carbon Dioxide (22-30) mmol/L Anion Gap mmol/L BUN (7-17) mg/dL Creatinine (0.52-1.04) mg/dL Est GFR (CKD-EPI)AfAm (>60 ml/min/1.73 sqM) Est GFR (CKD-EPI)NonAf (>60 ml/min/1.73 sqM) Glucose (74-99) mg/dL POC Glucose (mg/dL) >600 H (75-99) mg/dL POC Glu Psychiatric Clinical Nurse Specialist ID Dionisio Honey Plasma Lactic Acid Apolinar (0.7-2.0) mmol/L Calcium (8.4-10.2) mg/dL Magnesium (1.6-2.3) mg/dL Total Bilirubin (0.2-1.3) mg/dL AST (14-36) U/L ALT (4-34) U/L Alkaline Phosphatase (38-126) U/L Total Protein (6.3-8.2) g/dL Albumin (3.5-5.0) g/dL Lipase (23-300) U/L Acetone, Qual (Negative) Coronavirus (PCR) Not Detected (Not Detectd) 05/12/21 05/12/21 05/12/21 Range/Units 09:00 09:00 09:00 WBC (3.8-10.6) k/uL RBC (3.80-5.40) m/uL Hgb (11.4-16.0) gm/dL Hct (34.0-46.0) % MCV (80.0-100.0) fL MCH (25.0-35.0) pg MCHC (31.0-37.0) g/dL RDW (11.5-15.5) % Plt Count (150-450) k/uL MPV Hypochromasia Macrocytosis PT 11.8 (9.0-12.0) sec INR 1.1 (<1.2) APTT 24.4 (22.0-30.0) sec VBG pH (7.31-7.41) VBG pCO2 (37-51) mmHg VBG HCO3 (24-28) mmol/L Sodium 140 (137-145) mmol/L Potassium 4.6 (3.5-5.1) mmol/L Chloride 116 H (98-107) mmol/L Carbon Dioxide <5 L* (22-30) mmol/L Anion Gap mmol/L BUN 18 H (7-17) mg/dL Creatinine 0.87 (0.52-1.04) mg/dL Est GFR (CKD-EPI)AfAm 80 (>60 ml/min/1.73 sqM) Est GFR (CKD-EPI)NonAf 69 (>60 ml/min/1.73 sqM) Glucose 760 H* (74-99) mg/dL POC Glucose (mg/dL) (75-99) mg/dL POC Glu Psychiatric Clinical Nurse Specialist ID Plasma Lactic Acid Apolinar 4.2 H* (0.7-2.0) mmol/L Calcium 6.2 L* (8.4-10.2) mg/dL Magnesium 1.8 (1.6-2.3) mg/dL Total Bilirubin 0.4 (0.2-1.3) mg/dL AST 27 (14-36) U/L ALT 15 (4-34) U/L Alkaline Phosphatase 36 L (38-126) U/L Total Protein 4.9 L (6.3-8.2) g/dL Albumin 2.5 L (3.5-5.0) g/dL Lipase 67 (23-300) U/L Acetone, Qual Positive (Negative) Coronavirus (PCR) (Not Detectd) 05/12/21 05/12/21 Range/Units 09:00 09:17 WBC (3.8-10.6) k/uL RBC (3.80-5.40) m/uL Hgb (11.4-16.0) gm/dL Hct (34.0-46.0) % MCV (80.0-100.0) fL MCH (25.0-35.0) pg MCHC (31.0-37.0) g/dL RDW (11.5-15.5) % Plt Count (150-450) k/uL MPV Hypochromasia Macrocytosis PT (9.0-12.0) sec INR (<1.2) APTT (22.0-30.0) sec VBG pH 6.89 L* (7.31-7.41) VBG pCO2 10 L* (37-51) mmHg VBG HCO3 2 L* (24-28) mmol/L Sodium (137-145) mmol/L Potassium (3.5-5.1) mmol/L Chloride (98-107) mmol/L Carbon Dioxide (22-30) mmol/L Anion Gap mmol/L BUN (7-17) mg/dL Creatinine (0.52-1.04) mg/dL Est GFR (CKD-EPI)AfAm (>60 ml/min/1.73 sqM) Est GFR (CKD-EPI)NonAf (>60 ml/min/1.73 sqM) Glucose (74-99) mg/dL POC Glucose (mg/dL) >600 H (75-99) mg/dL POC Glu Psychiatric Clinical Nurse Specialist ID Renee Yuen Plasma Lactic Acid Apolinar (0.7-2.0) mmol/L Calcium (8.4-10.2) mg/dL Magnesium (1.6-2.3) mg/dL Total Bilirubin (0.2-1.3) mg/dL AST (14-36) U/L ALT (4-34) U/L Alkaline Phosphatase (38-126) U/L Total Protein (6.3-8.2) g/dL Albumin (3.5-5.0) g/dL Lipase (23-300) U/L Acetone, Qual (Negative) Coronavirus (PCR) (Not Detectd) Critical Care Time Critical Care Time: Yes Total Critical Care Time: 33 Disposition Clinical Impression: DKA (diabetic ketoacidoses) Disposition: ADMITTED IP TO THIS [facility] Condition: Critical Referrals: Sebastien Solomon DO [Primary Care Provider] - 1-2 days
[2021-05-12 09:31] LABS: ALT 15 U/L (4-34); AST 27 U/L (14-36); African American GFR (CKD) 80 (>60 ml/min/1.73 sqM); Albumin 2.5 g/dL (3.5-5.0); Alkaline Phosphatase 36 U/L (38-126); Blood Urea Nitrogen 18 mg/dL (7-17); Chloride 116 mmol/L (98-107); Lipase 67 U/L (23-300); Magnesium 1.8 mg/dL (1.6-2.3); Non-African American GFR(CKD) 69 (>60 ml/min/1.73 sqM); Potassium 4.6 mmol/L (3.5-5.1); Sodium 140 mmol/L (137-145); Total Bilirubin 0.4 mg/dL (0.2-1.3); Total Protein 4.9 g/dL (6.3-8.2)
[2021-05-12 09:32] LABS: Basophils % (A) 0 %; Eosinophils % (A) 0 %; HCT 33.2 % (34.0-46.0); Hypochromasia Marked; Lymphocytes # (A) 0.8 k/uL (1.0-4.8); Lymphocytes % (A) 9 %; MCH 31.1 pg (25.0-35.0); MCHC 28.3 g/dL (31.0-37.0); Macrocytosis Marked; Mean Platelet Volume 8.2; Monocytes # (A) 0.4 k/uL (0-1.0); Monocytes % (A) 4 %; Neutrophils # (A) 7.4 k/uL (1.3-7.7); Neutrophils % (A) 85 %; Platelet Count 236 k/uL (150-450); RBC 3.03 m/uL (3.80-5.40); WBC 8.7 k/uL (3.8-10.6)
[2021-05-12 09:33] LABS: HGB 9.4 gm/dL (11.4-16.0); MCV 109.8 fL (80.0-100.0)
[2021-05-12 09:34] LABS: INR 1.1 (<1.2); Partial Thromboplastin Time 24.4 sec (22.0-30.0); Prothrombin Time 11.8 sec (9.0-12.0)
[2021-05-12 09:34] LABS: Glucose,Whole Blood >600 mg/dL (75-99)
[2021-05-12 09:41] LABS: Carbon Dioxide <5 mmol/L (22-30); Glucose 760 mg/dL (74-99)
[2021-05-12 09:42] LABS: Calcium 6.2 mg/dL (8.4-10.2)
[2021-05-12] MEDS ORDERED: Potassium Replacement Protocol 1 EACH MISC MISCELLANE PRN (09:42)
[2021-05-12] MEDS ORDERED: INSULIN REGULAR BOLUS (FROM DRIP BAG) IV ONE (09:42)
[2021-05-12] MEDS ORDERED: Magnesium Replacement Protocol 1 EACH MISC MISCELLANE PRN (09:42)
[2021-05-12 09:43] LABS: VBG PH 6.89 (7.31-7.41)
--- NOTE | 2021-05-12 09:59 | XR ---
EXAMINATION TYPE: XR chest 1V portable DATE OF EXAM: 05/12/2021 COMPARISON: 04/22/2021 HISTORY: Altered mental status TECHNIQUE: Single frontal view of the chest is obtained. FINDINGS: Lungs are grossly clear. Cardiac silhouette is not enlarged. IMPRESSION: No acute process.
--- NOTE | 2021-05-12 10:05 | CT ---
EXAMINATION TYPE: CT brain wo con DATE OF EXAM: 05/12/2021 COMPARISON: 09/25/2018 HISTORY: altered mental status CT DLP: [address] of the brain was performed. The ventricles, basal cisterns and sulci overlying the cerebral convexities demonstrate mild enlargem ent. Remote insult left thalamus. There is no evidence for intracranial hemorrhage or sulcal effacement. There is decreased attenuation about the periventricular white matter and deep white matter of both c erebral hemispheres, compatible with chronic small vessel ischemia. Differential diagnosis does inclu de demyelination. No mass effects are seen.No midline shift. Osseous calvarium is intact. If symptoms persist consider MRI. IMPRESSION: 1. Age related atrophic and chronic small vessel ischemic change without acute intracranial process s een at this time.
[2021-05-12] MEDS: INSULIN REGULAR 100 UNIT in SODIUM CHLORIDE 0.9% 100 ML IV SCH ×2 (10:15→18:33)
[2021-05-12] MEDS ORDERED: NALOXONE 0.4 MG/ML 1 ML VIAL IV PRN (10:20)
[2021-05-12] MEDS: SODIUM CHLORIDE 0.9% 1,000 ML IV SCH ×2 (10:20→14:34)
[2021-05-12 10:24] LABS: Glucose,Whole Blood >600 mg/dL (75-99)
[2021-05-12] MEDS ORDERED: DEXTROSE 5% IN WATER 1,000 ML with SODIUM BICARB (1 MEQ/ML) 150 ML IV SCH (10:30)
[2021-05-12] MEDS ORDERED: SODIUM CHLORIDE 0.9% 1,000 ML IV SCH (10:30)
[2021-05-12 10:43] LABS: Appearance,Urine Clear (Clear); Bilirubin,Urine Negative (Negative); Blood,Urine Small (Negative); Color,Urine Light Yellow; Glucose,Urine (UA) 4+ (Negative); Leukocyte Esterase,Urine Negative (Negative); Mucus,Urine Rare /hpf; Nitrite,Urine Negative (Negative); Protein,Urine Trace (Negative); RBC,Urine 6 /hpf (0-5); Specific Gravity,Urine 1.021 (1.001-1.035); Squamous Epithelial Cell,Urine <1 /hpf (0-4); Urobilinogen,Urine <2.0 mg/dL (<2.0); WBC,Urine 2 /hpf (0-5)
[2021-05-12 10:45] LABS: Ketones,Urine 4+ (Negative)
[2021-05-12 11:53] LABS: Glucose,Whole Blood >600 mg/dL (75-99)
[2021-05-12 12:06] LABS: Glucose,Whole Blood >600 mg/dL (75-99)
--- NOTE | 2021-05-12 12:55 | P.CNPUL ---
History of Present Illness Consult date: 05/12/21 Requesting physician: Amee Polanco Reason for consult: other (Acute diabetic ketoacidosis) Chief complaint: Altered mental status History of present illness: This is a 65-year-old female with history of diabetes, insulin-requiring, chronic atrial fibrillation, previous CVA/TIA, obstructive sleep apnea syndrome, hypothyroidism, patient was last admitted to [facility] on 04/23 and discharged basically the same day when she presented with lightheadedness and chest pain. Seen by cardiology and underwent a full workup including stress testing and the patient was cleared for discharge basically the same day she was admitted. This time, the patient was brought in by EMS when she had change in mental status and unresponsiveness. Upon EMS arrival, her blood sugar was noted to be extremely elevated. Patient was brought to the ER and she was noted to be in diabetic ketoacidosis with blood sugar of 760, positive ketones, positive anion gap metabolic acidosis, negative CT of the brain, patient was admitted, placed on the DKA protocol, and this consult was initiated. I evaluated the patient while in the ER, however could not obtain any history from the patient, and no family members with the patient. 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 Needs to use a child's one. mother has diff coming out Past Psychological History: No Psychological Hx Reported Smoking Status: Never smoker Past Alcohol Use History: None Reported Past Drug Use History: None Reported - Past Family History Mother Family Medical History: Thyroid Disorder Additional Family Medical History / Comment(s): thyroid removed Father Family Medical History: Myocardial Infarction (DE) Medications and Allergies Home Medications Medication Instructions Recorded Confirmed Type Apixaban [Eliquis] 5 mg PO BID #60 tab 09/28/18 05/12/21 Rx Insulin Detemir (Levemir) [Levemir] 24 unit SQ HS 04/22/21 05/12/21 History Polyvinyl Alcohol/Povidone 1 applic BOTH EYES QID 04/22/21 05/12/21 History [[place] Eye Drop] Sodium Chloride 5% Ophth Oint 1 applic LEFT EYE HS 04/22/21 05/12/21 History [Briseida 128] Atorvastatin [Lipitor] 10 mg PO HS 05/12/21 05/12/21 History Insulin Aspart [NovoLOG Flexpen] 10 units SQ AC-TID 05/12/21 05/12/21 History Metoprolol Tartrate [Lopressor] 25 mg PO BID 05/12/21 05/12/21 History Allergies Allergy/AdvReac Type Severity Reaction Status Date / Time Penicillins Allergy Unknown Verified 05/12/21 08:22 Physical Exam Vitals: Vital Signs Temp Pulse Resp BP Pulse Ox 05/12/21 11:48 95.5 F L 100 32 H 123/63 100 05/12/21 11:44 95.5 F L 100 32 H 123/63 100 05/12/21 10:00 93.0 F L 103 H 34 H 92/39 100 05/12/21 09:10 93.7 F L 107 H 24 101/44 99 05/12/21 08:42 94 F L 114 H 24 05/12/21 08:13 97.3 F L 117 H 26 H 114/80 97 Intake and Output 05/11/21 05/12/21 05/12/21 22:59 06:59 14:59 Other: Weight 95.254 kg General Impression: Revealed 65-year-old female, arousable, does not follow any instructions not in distress. HEENT: Camille, EOMI, nonicteric, no neck masses, no JVD, no stridor, dry mucous membranes. Cardiovascular: Normal S1 and S2, no S3 gallop. Chest: Symmetrical chest expansion, no crackles or rhonchi or wheezes. Abdomen: Soft nontender no megaly no rebound no guarding. Musculoskeletal: No deformities, could not assess range of motion as the patient does not seem to be cooperative. Motor: Could not assess. Neurological: Awake but does not follow any instructions. Generally weak. Skin: No rashes. No cyanosis. Psychiatric: Could not assess mostly because of mental status. Results - Laboratory Findings CBC and BMP: 05/12/21 09:00 05/12/21 09:00 PT/INR, D-dimer PT 11.8 sec (9.0-12.0) 05/12/21 09:00 INR 1.1 (<1.2) 05/12/21 09:00 Abnormal lab findings: Abnormal Labs 05/12/21 05/12/21 05/12/21 08:16 08:49 09:00 RBC 3.03 L Hgb 9.4 L D Hct 33.2 L MCV 109.8 H D MCHC 28.3 L Lymphocytes # 0.8 L Macrocytosis Marked A VBG pH VBG pCO2 VBG HCO3 Chloride Carbon Dioxide BUN Glucose POC Glucose (mg/dL) >600 H Plasma Lactic Acid Apolinar Calcium Alkaline Phosphatase Total Protein Albumin Urine Protein Trace H Urine Glucose (UA) 4+ H Urine Ketones 4+ H Urine Blood Small H Urine RBC 6 H Urine Mucus Rare H 05/12/21 05/12/21 05/12/21 09:00 09:00 09:00 RBC Hgb Hct MCV MCHC Lymphocytes # Macrocytosis VBG pH 6.89 L* VBG pCO2 10 L* VBG HCO3 2 L* Chloride 116 H Carbon Dioxide <5 L* BUN 18 H Glucose 760 H* POC Glucose (mg/dL) Plasma Lactic Acid Apolinar 4.2 H* Calcium 6.2 L* Alkaline Phosphatase 36 L Total Protein 4.9 L Albumin 2.5 L Urine Protein Urine Glucose (UA) Urine Ketones Urine Blood Urine RBC Urine Mucus 05/12/21 05/12/21 05/12/21 09:17 10:21 11:43 RBC Hgb Hct MCV MCHC Lymphocytes # Macrocytosis VBG pH VBG pCO2 VBG HCO3 Chloride Carbon Dioxide BUN Glucose POC Glucose (mg/dL) >600 H >600 H >600 H Plasma Lactic Acid Apolinar Calcium Alkaline Phosphatase Total Protein Albumin Urine Protein Urine Glucose (UA) Urine Ketones Urine Blood Urine RBC Urine Mucus 05/12/21 05/12/21 11:45 12:04 RBC Hgb Hct MCV MCHC Lymphocytes # Macrocytosis VBG pH VBG pCO2 VBG HCO3 Chloride Carbon Dioxide BUN Glucose POC Glucose (mg/dL) >600 H Plasma Lactic Acid Apolinar 5.2 H* Calcium Alkaline Phosphatase Total Protein Albumin Urine Protein Urine Glucose (UA) Urine Ketones Urine Blood Urine RBC Urine Mucus - Diagnostic Findings Chest x-ray: image reviewed (Chest x-ray showed no acute process.) Additional studies: CT brain is basically unremarkable. Assessment and Plan Assessment: Impression: Acute diabetic ketoacidosis. Acute toxic metabolic encephalopathy secondary to DKA. Acute anion gap metabolic acidosis secondary to DKA. History of chronic atrial fibrillation. History of insulin-dependent diabetes. History of GERD. History of obstructive sleep apnea syndrome. History of CVA/TIA. Recommendation: Continue DKA protocol. Continue present supportive care measures. Patient is now on insulin drip, she is also on 0.9 normal saline at 200 mL per hour. She received 3 L of fluid boluses upon arrival to the ER. Continue to monitor in the ICU. We will continue to follow while in the ICU. GI and DVT prophylaxis. Prognosis is relatively guarded Time with Patient: Greater than 30
[2021-05-12 13:07] LABS: Glucose,Whole Blood >600 mg/dL (75-99)
[2021-05-12 14:05] LABS: Glucose,Whole Blood 462 mg/dL (75-99)
[2021-05-12] MEDS: PANTOPRAZOLE 40 MG/10 ML VIAL IVP SCH (14:33)
[2021-05-12 14:53] LABS: African American GFR (CKD) 41 (>60 ml/min/1.73 sqM); Blood Urea Nitrogen 25 mg/dL (7-17); Calcium 9.3 mg/dL (8.4-10.2); Chloride 113 mmol/L (98-107); Magnesium 2.5 mg/dL (1.6-2.3); Non-African American GFR(CKD) 36 (>60 ml/min/1.73 sqM); Phosphorus 3.4 mg/dL (2.5-4.5); Potassium 4.1 mmol/L (3.5-5.1); Sodium 145 mmol/L (137-145)
[2021-05-12 15:04] LABS: Glucose,Whole Blood 377 mg/dL (75-99)
[2021-05-12 15:08] LABS: Carbon Dioxide <5 mmol/L (22-30); Glucose 541 mg/dL (74-99)
[2021-05-12 16:01] LABS: Glucose,Whole Blood 313 mg/dL (75-99)
[2021-05-12 17:02] LABS: Glucose,Whole Blood 204 mg/dL (75-99)
[2021-05-12 17:59] LABS: Glucose,Whole Blood 148 mg/dL (75-99)
[2021-05-12] MEDS: D5-0.45% NACL WITH KCL 20MEQ/L 1,000 ML IV SCH (18:05)
[2021-05-12 19:11] LABS: Glucose,Whole Blood 141 mg/dL (75-99)
[2021-05-12 20:17] LABS: Glucose,Whole Blood 146 mg/dL (75-99)
[2021-05-12] MEDS: ATORVASTATIN 10 MG TAB PO SCH (20:19)
[2021-05-12] MEDS: APIXABAN 5 MG TAB PO SCH (20:19)
[2021-05-12] MEDS: METOPROLOL TARTRATE 25 MG TAB PO SCH (20:19)
--- NOTE | 2021-05-12 20:21 | HP ---
HISTORY AND PHYSICAL DATE OF SERVICE: 05/12/2021. CHIEF COMPLAINT: Change in mental status. HISTORY OF PRESENT ILLNESS: This 65-year-old woman with a past medical history of multiple medical problems, including atrial fibrillation, CVA, TIA, diabetes, GERD, sleep apnea, thyroid disorder being followed by Dr. Solomon in the outpatient setting found to have unresponsive by the family. EMS was called and the patient was found to have acute diabetic ketoacidosis and the patient was taken to [facility] and admitted for further evaluation and treatment. Patient has severe metabolic acidosis. Bicarb drip was initiated. Patient monitored in ICU. The patient is barely arousable, unable to give coherent history. Most of the history is taken from my discussion with staff and review of the chart. The initial CT scan not show any acute features of acute stroke. Dr. Ferrari is following the patient closely. PAST MEDICAL HISTORY: History of atrial ablation, CVA, TIA, diabetes, GERD, sleep apnea, hypothyroidism. MEDICATIONS: Medications prior to admission include: NovoLog FlexPen 10 units a.c. t.i.d., Lopressor 25 mg b.i.d., Lipitor 10 mg q.h.s., Eliquis 5 mg p.o. b.i.d., eye drops and Levemir 24 units subcu q.h.s. ALLERGIES: PENICILLIN. FAMILY HISTORY: History of myocardial infarction in the family. SOCIAL HISTORY: No history of smoking. No alcohol intake. REVIEW OF SYSTEMS: Review of systems could not be taken at length because of the change in mental status. PHYSICAL EXAMINATION: Patient is stuporous. Pulse 103, blood pressure 96/61, respiration 20, temperature 97.8, pulse ox 98% on 2 L. HEENT: Conjunctivae normal. NECK: No JVD. CARDIOVASCULAR: S1, S2 muffled. RESPIRATORY: Breath sounds diminished at the bases. A few scattered rhonchi. No crackles. ABDOMEN: Soft, nontender. No mass palpable. LEGS: No edema. No swelling. NERVOUS SYSTEM: Higher functions as mentioned earlier. Moves all four extremities. No focal deficits. LYMPHATICS: No lymph nodes palpable in the neck, axillae or groin. SKIN: No ulcers. No rashes and no bleeding. JOINTS: No active deforming arthropathy. LABS: Glucose 313, 204, 148, hemoglobin 9.4 and bicarb less than 5. The blood sugars more than 600 on admission. Lactic acid is 5.2. Other labs are noted. UA unremarkable. Covid 19 negative. Acetone is positive. Hemoglobin 9.4. The chest x-ray which was personally reviewed by me showed no acute process. ASSESSMENT: 1. Acute diabetic ketoacidosis and uncontrolled diabetes mellitus type 2 with hyperglycemia. 2. Change in mental status, acute metabolic encephalopathy, rule out CVA. 3. History of atrial fibrillation. 4. History of cerebrovascular accident, transient ischemic attack. 5. Diabetes mellitus type 2. 6. Gastroesophageal reflux disease. 7. Sleep apnea. 8. Hypothyroidism. 9. Thyroid nodule. 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 11.History of cholecystectomy. 12.History of bariatric surgery. 13.History of difficult intubation. 14.Obesity with body mass of 32.6. 15.FULL CODE. RECOMMENDATIONS AND DISCUSSION: In this 65-year-old woman presented with multiple complex medical issues, we will monitor the patient closely. Continue the current management and continue the insulin drip and also transition to D5 0.5. Monitor closely. Continue the bicarb drip. Closely follow with Dr. Ferrari. Resume the home medications. Obtain the cultures. Cortisol level also sought. DVT prophylaxis and proton pump inhibitors. Prognosis guarded because of multiple complex medical issues. Further recommendations to follow. A copy of this dictation being forwarded to Dr. Solomon who is the primary physician. MMODL / FAVIANN: [id number] /
[2021-05-12 21:02] LABS: Glucose,Whole Blood 173 mg/dL (75-99)
[2021-05-12 21:48] LABS: Albumin 3.5 g/dL (3.5-5.0); Calcium 9.1 mg/dL (8.4-10.2); Potassium 4.3 mmol/L (3.5-5.1); Total Bilirubin 0.3 mg/dL (0.2-1.3); Total Protein 6.3 g/dL (6.3-8.2)
[2021-05-12 21:57] LABS: Glucose,Whole Blood 217 mg/dL (75-99)
[2021-05-12] MEDS ORDERED: Phosphorus Replacement Protoco 1 EACH MISC MISCELLANE PRN (21:57)
[2021-05-12] MEDS: POTASSIUM PHOSPHATE 10 MMOL in SODIUM CHLORIDE 0.9% 250 ML IV SCH (22:24)
[2021-05-12 22:56] LABS: Glucose,Whole Blood 241 mg/dL (75-99)
[2021-05-13 00:04] LABS: Glucose,Whole Blood 244 mg/dL (75-99)
[2021-05-13] MEDS: POTASSIUM PHOSPHATE 10 MMOL in SODIUM CHLORIDE 0.9% 250 ML IV SCH ×2 (00:06→02:12)
[2021-05-13] MEDS: D5-0.45% NACL WITH KCL 20MEQ/L 1,000 ML IV SCH ×3 (00:19→13:24)
[2021-05-13 01:46] LABS: Glucose,Whole Blood 282 mg/dL (75-99)
[2021-05-13 02:59] LABS: Glucose,Whole Blood 269 mg/dL (75-99)
[2021-05-13 04:09] LABS: Calcium 8.3 mg/dL (8.4-10.2); Magnesium 1.8 mg/dL (1.6-2.3); Phosphorus 2.6 mg/dL (2.5-4.5)
[2021-05-13 04:10] LABS: Potassium 4.1 mmol/L (3.5-5.1)
[2021-05-13 04:20] LABS: Basophils % (A) 0 %; Eosinophils % (A) 0 %; HCT 31.4 % (34.0-46.0); HGB 10.3 gm/dL (11.4-16.0); Lymphocytes # (A) 0.4 k/uL (1.0-4.8); Lymphocytes % (A) 4 %; MCH 31.7 pg (25.0-35.0); Mean Platelet Volume 7.7; Monocytes # (A) 0.9 k/uL (0-1.0); Monocytes % (A) 10 %; Neutrophils # (A) 7.8 k/uL (1.3-7.7); Neutrophils % (A) 84 %; Platelet Count 223 k/uL (150-450); RBC 3.26 m/uL (3.80-5.40); RDW 13.2 % (11.5-15.5); WBC 9.3 k/uL (3.8-10.6)
[2021-05-13 04:25] LABS: Glucose,Whole Blood 228 mg/dL (75-99)
[2021-05-13 04:25] LABS: MCV 96.1 fL (80.0-100.0)
[2021-05-13 06:20] LABS: Glucose,Whole Blood 191 mg/dL (75-99)
[2021-05-13] MEDS: MAGNESIUM SULFATE-D5W PMX 1 GM in DEXTROSE/WATER 1 100ML.BAG IVPB SCH ×2 (06:22→08:38)
[2021-05-13 07:52] LABS: Glucose,Whole Blood 151 mg/dL (75-99)
[2021-05-13] MEDS: PANTOPRAZOLE 40 MG/10 ML VIAL IVP SCH (08:38)
[2021-05-13 08:57] LABS: Glucose,Whole Blood 162 mg/dL (75-99)
[2021-05-13] MEDS: APIXABAN 5 MG TAB PO SCH ×2 (09:15→20:17)
[2021-05-13] MEDS: METOPROLOL TARTRATE 25 MG TAB PO SCH ×2 (09:15→20:17)
[2021-05-13] MEDS ORDERED: levETIRAcetam IV 1,500 MG in SALINE 1 100ML.BAG IVPB STA (10:12)
[2021-05-13 10:28] LABS: Glucose,Whole Blood 152 mg/dL (75-99)
[2021-05-13 11:04] LABS: Glucose,Whole Blood 135 mg/dL (75-99)
[2021-05-13 11:53] LABS: Glucose,Whole Blood 141 mg/dL (75-99)
[2021-05-13] MEDS ORDERED: LORazepam 2 MG/ML INJ IV STA ×4 (12:01→17:02)
--- NOTE | 2021-05-13 12:27 | P.PN ---
Subjective Progress Note Date: 05/13/21 Principal diagnosis: Acute DKA This is a 65-year-old female with history of diabetes, insulin-requiring, chronic atrial fibrillation, previous CVA/TIA, obstructive sleep apnea syndrome, hypothyroidism, patient was last admitted to [facility] on 04/23 and discharged basically the same day when she presented with lightheadedness and chest pain. Seen by cardiology and underwent a full workup including stress testing and the patient was cleared for discharge basically the same day she was admitted. This time, the patient was brought in by EMS when she had change in mental status and unresponsiveness. Upon EMS arrival, her blood sugar was noted to be extremely elevated. Patient was brought to the ER and she was noted to be in diabetic ketoacidosis with blood sugar of 760, positive ketones, positive anion gap metabolic acidosis, negative CT of the brain, patient was admitted, placed on the DKA protocol, and this consult was initiated. I evaluated the patient while in the ER, however could not obtain any history from the patient, and no family members with the patient. Hence most of the information I have was obtained from the chart Patient was reevaluated today on 05/13/2021, remains confused, very sleepy, however she is arousable, follows very simple instructions but does not seem to be answering any questions. Patient would squeeze hands, and wiggle toes, but she would not answer questions about her name or where she is. Obviously she is quite confused, and her mental status remains extremely poor. Today I recommended a neurological evaluation to address her mental status. Her anion gap has closed, continues to have a low bicarb, but her sodium is correcting nicely, and she is a bit hyperchloremic. Remains on D5 45 she is also on insulin at 3.2 units per hour. Patient did have previous history of CVA, and I'm not certain what is her baseline mental status is like. I am recommending urology to evaluate this patient. Pulmonary-[place], the patient is not in any distress, and she is only on room air with O2 saturation of 98%. CBC is relatively normal electrolytes are normal bicarb is low at 13. Anion gap is 12. Blood sugar is around 200 Objective - Vital Signs Vital signs: Vital Signs Temp 98.6 F 05/13/21 08:00 Pulse 85 05/13/21 11:00 Resp 21 05/13/21 11:00 BP 107/56 05/13/21 11:00 Pulse Ox 99 05/13/21 11:00 Intake & Output 05/12/21 05/13/21 05/13/21 18:59 06:59 18:59 Intake Total 8810.901 7374.041 875.973 Output Total 299 575 295 Balance 881.404 1970.041 580.973 Weight 95.254 kg 74.1 kg Intake: IV 1200 2450 850 D5-0.45% NaCl with KCl 1650 750 20Meq/l 1,000 ml @ 150 mls/hr IV .Q6H40M INDIRA Rx# :[id number] Magnesium Sulfate-D5w Pmx 100 100 1 gm In Dextrose/Water 1 100ml.bag @ 100 mls/hr IVPB Q1H INDIRA Rx#: [id number] Potassium Phosphate 10 500 mmol In Sodium Chloride 0 .9% 250 ml @ 125 mls/hr IV Q2H INDIRA Rx#:[id number] Sodium Chloride 0.9% 1, 1200 200 000 ml @ 200 mls/hr IV . Q5H INDIRA Rx#:[id number] Intake, IV Titration 78.247 15.041 25.973 Amount Insulin Regular 100 unit 78.247 15.041 25.973 In Sodium Chloride 0.9% 100 ml @ 0.1 UNITS/KG/HR 9.621 mls/hr IV .Q00Q99D INDIRA Rx#:[id number] Output: Urine 299 575 295 Other: Voiding Method Indwelling Catheter Indwelling Catheter Indwelling Catheter # Bowel Movements 1 - Exam General Impression: Revealed 65-year-old female, arousable, follows simple instructions, but does not answer any questions. HEENT: Camille, EOMI, nonicteric, no neck masses, no JVD, no stridor, dry mucous membranes. Cardiovascular: Normal S1 and S2, no S3 gallop. Chest: Symmetrical chest expansion, no crackles or rhonchi or wheezes. Abdomen: Soft nontender no megaly no rebound no guarding. Musculoskeletal: No deformities, could not assess range of motion as the patient does not seem to be cooperative. Motor: Could not assess. Neurological: Awake , follows simple instructions but not answering any questions. Skin: No rashes. No cyanosis. Psychiatric: Could not assess mostly because of mental status. - Labs CBC & Chem 7: 05/13/21 02:59 05/13/21 02:59 Labs: Abnormal Lab Results - Last 24 Hours (Table) 05/12/21 05/12/21 05/12/21 Range/Units 09:00 11:45 13:05 RBC (3.80-5.40) m/uL Hgb (11.4-16.0) gm/dL Hct (34.0-46.0) % Neutrophils # (1.3-7.7) k/uL Lymphocytes # (1.0-4.8) k/uL Sodium (137-145) mmol/L Chloride (98-107) mmol/L Carbon Dioxide (22-30) mmol/L BUN (7-17) mg/dL Creatinine (0.52-1.04) mg/dL Glucose (74-99) mg/dL POC Glucose (mg/dL) >600 H (75-99) mg/dL Plasma Lactic Acid Apolinar 5.2 H* (0.7-2.0) mmol/L Calcium (8.4-10.2) mg/dL Phosphorus (2.5-4.5) mg/dL Magnesium (1.6-2.3) mg/dL Cortisol 59.8 H (3.10-22.40) ug/dL 05/12/21 05/12/21 05/12/21 Range/Units 13:58 14:03 15:02 RBC (3.80-5.40) m/uL Hgb (11.4-16.0) gm/dL Hct (34.0-46.0) % Neutrophils # (1.3-7.7) k/uL Lymphocytes # (1.0-4.8) k/uL Sodium (137-145) mmol/L Chloride 113 H (98-107) mmol/L Carbon Dioxide <5 L* (22-30) mmol/L BUN 25 H (7-17) mg/dL Creatinine 1.51 H (0.52-1.04) mg/dL Glucose 541 H* (74-99) mg/dL POC Glucose (mg/dL) 462 H 377 H (75-99) mg/dL Plasma Lactic Acid Apolinar (0.7-2.0) mmol/L Calcium (8.4-10.2) mg/dL Phosphorus (2.5-4.5) mg/dL Magnesium 2.5 H (1.6-2.3) mg/dL Cortisol (3.10-22.40) ug/dL 05/12/21 05/12/21 05/12/21 Range/Units 16:00 17:00 17:08 RBC (3.80-5.40) m/uL Hgb (11.4-16.0) gm/dL Hct (34.0-46.0) % Neutrophils # (1.3-7.7) k/uL Lymphocytes # (1.0-4.8) k/uL Sodium (137-145) mmol/L Chloride (98-107) mmol/L Carbon Dioxide (22-30) mmol/L BUN (7-17) mg/dL Creatinine (0.52-1.04) mg/dL Glucose (74-99) mg/dL POC Glucose (mg/dL) 313 H 204 H (75-99) mg/dL Plasma Lactic Acid Apolinar 3.7 H* (0.7-2.0) mmol/L Calcium (8.4-10.2) mg/dL Phosphorus (2.5-4.5) mg/dL Magnesium (1.6-2.3) mg/dL Cortisol (3.10-22.40) ug/dL 05/12/21 05/12/21 05/12/21 Range/Units 17:57 19:09 20:14 RBC (3.80-5.40) m/uL Hgb (11.4-16.0) gm/dL Hct (34.0-46.0) % Neutrophils # (1.3-7.7) k/uL Lymphocytes # (1.0-4.8) k/uL Sodium (137-145) mmol/L Chloride (98-107) mmol/L Carbon Dioxide (22-30) mmol/L BUN (7-17) mg/dL Creatinine (0.52-1.04) mg/dL Glucose (74-99) mg/dL POC Glucose (mg/dL) 148 H 141 H 146 H (75-99) mg/dL Plasma Lactic Acid Apolinar (0.7-2.0) mmol/L Calcium (8.4-10.2) mg/dL Phosphorus (2.5-4.5) mg/dL Magnesium (1.6-2.3) mg/dL Cortisol (3.10-22.40) ug/dL 05/12/21 05/12/21 05/12/21 Range/Units 21:01 21:08 21:46 RBC (3.80-5.40) m/uL Hgb (11.4-16.0) gm/dL Hct (34.0-46.0) % Neutrophils # (1.3-7.7) k/uL Lymphocytes # (1.0-4.8) k/uL Sodium 147 H (137-145) mmol/L Chloride 118 H (98-107) mmol/L Carbon Dioxide 13 L (22-30) mmol/L BUN 24 H (7-17) mg/dL Creatinine 1.18 H (0.52-1.04) mg/dL Glucose 204 H (74-99) mg/dL POC Glucose (mg/dL) 173 H 217 H (75-99) mg/dL Plasma Lactic Acid Apolinar (0.7-2.0) mmol/L Calcium (8.4-10.2) mg/dL Phosphorus 1.0 L* (2.5-4.5) mg/dL Magnesium (1.6-2.3) mg/dL Cortisol (3.10-22.40) ug/dL 05/12/21 05/13/21 05/13/21 Range/Units 22:54 00:02 01:44 RBC (3.80-5.40) m/uL Hgb (11.4-16.0) gm/dL Hct (34.0-46.0) % Neutrophils # (1.3-7.7) k/uL Lymphocytes # (1.0-4.8) k/uL Sodium (137-145) mmol/L Chloride (98-107) mmol/L Carbon Dioxide (22-30) mmol/L BUN (7-17) mg/dL Creatinine (0.52-1.04) mg/dL Glucose (74-99) mg/dL POC Glucose (mg/dL) 241 H 244 H 282 H (75-99) mg/dL Plasma Lactic Acid Apolinar (0.7-2.0) mmol/L Calcium (8.4-10.2) mg/dL Phosphorus (2.5-4.5) mg/dL Magnesium (1.6-2.3) mg/dL Cortisol (3.10-22.40) ug/dL 05/13/21 05/13/21 05/13/21 Range/Units 02:58 02:59 02:59 RBC 3.26 L (3.80-5.40) m/uL Hgb 10.3 L (11.4-16.0) gm/dL Hct 31.4 L (34.0-46.0) % Neutrophils # 7.8 H (1.3-7.7) k/uL Lymphocytes # 0.4 L (1.0-4.8) k/uL Sodium (137-145) mmol/L Chloride 118 H (98-107) mmol/L Carbon Dioxide 13 L (22-30) mmol/L BUN 21 H (7-17) mg/dL Creatinine (0.52-1.04) mg/dL Glucose 273 H (74-99) mg/dL POC Glucose (mg/dL) 269 H (75-99) mg/dL Plasma Lactic Acid Apolinar (0.7-2.0) mmol/L Calcium 8.3 L (8.4-10.2) mg/dL Phosphorus (2.5-4.5) mg/dL Magnesium (1.6-2.3) mg/dL Cortisol (3.10-22.40) ug/dL 05/13/21 05/13/21 05/13/21 Range/Units 04:23 06:19 07:50 RBC (3.80-5.40) m/uL Hgb (11.4-16.0) gm/dL Hct (34.0-46.0) % Neutrophils # (1.3-7.7) k/uL Lymphocytes # (1.0-4.8) k/uL Sodium (137-145) mmol/L Chloride (98-107) mmol/L Carbon Dioxide (22-30) mmol/L BUN (7-17) mg/dL Creatinine (0.52-1.04) mg/dL Glucose (74-99) mg/dL POC Glucose (mg/dL) 228 H 191 H 151 H (75-99) mg/dL Plasma Lactic Acid Apolinar (0.7-2.0) mmol/L Calcium (8.4-10.2) mg/dL Phosphorus (2.5-4.5) mg/dL Magnesium (1.6-2.3) mg/dL Cortisol (3.10-22.40) ug/dL 05/13/21 05/13/21 05/13/21 Range/Units 08:55 10:26 11:03 RBC (3.80-5.40) m/uL Hgb (11.4-16.0) gm/dL Hct (34.0-46.0) % Neutrophils # (1.3-7.7) k/uL Lymphocytes # (1.0-4.8) k/uL Sodium (137-145) mmol/L Chloride (98-107) mmol/L Carbon Dioxide (22-30) mmol/L BUN (7-17) mg/dL Creatinine (0.52-1.04) mg/dL Glucose (74-99) mg/dL POC Glucose (mg/dL) 162 H 152 H 135 H (75-99) mg/dL Plasma Lactic Acid Apolinar (0.7-2.0) mmol/L Calcium (8.4-10.2) mg/dL Phosphorus (2.5-4.5) mg/dL Magnesium (1.6-2.3) mg/dL Cortisol (3.10-22.40) ug/dL 05/13/21 Range/Units 11:52 RBC (3.80-5.40) m/uL Hgb (11.4-16.0) gm/dL Hct (34.0-46.0) % Neutrophils # (1.3-7.7) k/uL Lymphocytes # (1.0-4.8) k/uL Sodium (137-145) mmol/L Chloride (98-107) mmol/L Carbon Dioxide (22-30) mmol/L BUN (7-17) mg/dL Creatinine (0.52-1.04) mg/dL Glucose (74-99) mg/dL POC Glucose (mg/dL) 141 H (75-99) mg/dL Plasma Lactic Acid Apolinar (0.7-2.0) mmol/L Calcium (8.4-10.2) mg/dL Phosphorus (2.5-4.5) mg/dL Magnesium (1.6-2.3) mg/dL Cortisol (3.10-22.40) ug/dL Microbiology - Last 24 Hours (Table) 05/12/21 Unknown Urine Culture - Preliminary Urine,Catheterized Assessment and Plan Assessment: Impression: Acute diabetic ketoacidosis. He can discontinue improved over the last 24 hours. Acute toxic metabolic encephalopathy secondary to DKA. Her mental status does not seem to be improving significantly. Hence a neurological consultation was initiated. Acute anion gap metabolic acidosis secondary to DKA. Resolved. History of chronic atrial fibrillation. History of insulin-dependent diabetes. History of GERD. History of obstructive sleep apnea syndrome. History of CVA/TIA. Recommendation: Consult neurology. Continue to monitor in the ICU. Continue DKA protocol. Continue present supportive care measures. Continue insulin drip and D5 45. GI and DVT prophylaxis. Prognosis is relatively guarded Time with Patient: Less than 30
[2021-05-13 12:57] LABS: Glucose,Whole Blood 143 mg/dL (75-99)
[2021-05-13 14:49] LABS: Glucose,Whole Blood 146 mg/dL (75-99)
[2021-05-13] MEDS ORDERED: HALOPERIDOL LACTATE 5 MG/ML 1 ML VIAL IVP PRN (15:00)
[2021-05-13 15:58] LABS: African American GFR (CKD) >90 (>60 ml/min/1.73 sqM); Anion Gap 7 mmol/L; Blood Urea Nitrogen 13 mg/dL (7-17); Calcium 8.5 mg/dL (8.4-10.2); Carbon Dioxide 18 mmol/L (22-30); Chloride 118 mmol/L (98-107); Glucose 133 mg/dL (74-99); Non-African American GFR(CKD) 83 (>60 ml/min/1.73 sqM); Phosphorus 1.6 mg/dL (2.5-4.5); Potassium 3.8 mmol/L (3.5-5.1); Sodium 143 mmol/L (137-145)
[2021-05-13] MEDS ORDERED: HALOPERIDOL LACTATE 5 MG/ML 1 ML VIAL IVP ONE (16:00)
[2021-05-13] MEDS: INSULIN REGULAR 100 UNIT in SODIUM CHLORIDE 0.9% 100 ML IV SCH (18:16)
[2021-05-13] MEDS: SODIUM CHLORIDE 0.9% 1,000 ML IV SCH (18:17)
--- NOTE | 2021-05-13 18:20 | MR ---
EXAMINATION TYPE: MR brain wo/w con DATE OF EXAM: 05/13/2021 COMPARISON: 09/25/2018 HISTORY: Confusion, left thalamic abscess vs mass. CONTRAST: Standard multiplanar, multisequence MRI departmental protocol utilizing 7 mL intravenous Gadavist jamey olinium contrast. There is mild cerebral atrophy. There is no mass effect nor midline shift. Diffusion images show no e vidence of an acute infarct. On the T2 and FLAIR images there is 1 cm focus of increased signal in th e medial left thalamus. This has low signal on T1 and shows no enhancement. There is normal enhancement of the venous sinuses. I see no pathologic enhancement. The brainstem is intact. There is no evidence of posterior fossa mass. Sella turcica appears normal. Optic chiasm appears normal. There is no evidence of orbital mass. IMPRESSION: 1 cm nonenhancing focus in the medial left thalamus consistent with an old infarct or encephalomalaci a. This area showed ring enhancement on the old exam with more extensive edema. This could be the res idual of an acute infarct on the old exam or resolved inflammatory process such as abscess. There is no evidence of any new abnormality in the brain. Involuting tumor not excluded.
[2021-05-13 18:21] LABS: Glucose,Whole Blood 224 mg/dL (75-99)
[2021-05-13] MEDS: INSULIN ASPART (NovoLOG) 100 UNIT/ML VIAL SQ SCH ×2 (18:22→20:22)
--- NOTE | 2021-05-13 18:31 | P.CNNES ---
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 History was obtained from medical records and the patient's nurse. Per the ED notes it is mentioned that the the daughter found the patient to be minimally responsive at home and supposedly the takes her insulin. Her go see glucose on presentation was more than 600 wall the serum glucose was 760. She was found to be in DKA. Per the patient nurse she's been in the ICU but and did not require any intubation. She continues to have altered mentation. No seizure-like activity as in jerking of any extremities, foaming around the mouth, posturing. In the ED she's been on insulin drip. Patient will medication consists off insulin, Lipitor 10 mg daily at bedtime, metoprolol 25 mg without twice a day, Eliquis 5 mg 1 tablet twice a day, insulin. Some other workup in the hospital consisted of: Initial vital signs: Blood pressure of 114/80, heart rate of 117, respiratory of 26, temperature initially was 97.3 Fahrenheit rectally and pulse ox of 97% at room air. Her temperature was as low as 93.0 Fahrenheit and the most current that a temperature is 98.6 [address] which is normal. CT of the head is reported as age-related atrophy and chronic small vessel ischemic change without acute intracranial process seen at this time. I personally reviewed the CT of the head and there is some motion artifact but the patient does have old hypodensity involving the left thalamus region. EKG is reported as sinus tachycardia. Possible left atrial enlargement. Nonspecific ST abnormality. Abnormal EKG. White blood cell on presentation is 8.7 which is considered within normal limits. The MCV on presentation is 109.8 which is elevated but the repeated 96.1 which is within normal limits. As stated above the patient initial less serum glucoses 760. The carbon dioxide is less than 5, calcium 6.2, lactic acid vein is 4.2 which these are abnormal. The calcium can be low because of the hypoglycemia. The AST is 27 and the ALTs 15 which are normal. Acetone is positive. Her most recent the POC glucose is in the 150s. The calcium is 8.3, phosphorus 2.6 and magnesium is 1.8. Of Note, a shunt was seen by the neuro hospitalist Dr. Maricruz Oropeza (last on 09/27/2018) and the she was at basically seen as a consultation by Dr. Joann Oropeza on 09/22/2018 for confusion and lethargy with subacute stroke. He stated the patient had a recent stroke initial stroke finding on 09/09/2018 she was given TPA then was transferred to [facility]. Was felt at [facility] from a the note she had that stroke over the left thalamus. Initial MRI of the brain during that that during that admission was reported as the patient stroke was related to previous bleeding. Therefore MRI of the brain with gallium was done which is reported as a ring-enhancing lesion in the left thalamus. And that Dr. Alcala was on consult and per the note and it is stated that the suspicion that the lesion represented brain abscess was very low. And then there is an addendum on the MRI the brain after comparison to the previous MRI from outside facility and stated that the findings on current exam likely due to prior infarct in the left thalamus area and is seems compatible with subacute ischemia. Review of Systems Review of system is limited but the prone positive and negative as per HPI. 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 Needs to use a child's one. mother has diff coming out Past Psychological History: No Psychological Hx Reported Smoking Status: Never smoker Past Alcohol Use History: None Reported Past Drug Use History: None Reported - Past Family History Mother Family Medical History: Thyroid Disorder Additional Family Medical History / Comment(s): thyroid removed Father Family Medical History: Myocardial Infarction ([place]) Medications and Allergies Home Medications Medication Instructions Recorded Confirmed Type Apixaban [Eliquis] 5 mg PO BID #60 tab 09/28/18 05/12/21 Rx Insulin Detemir (Levemir) [Levemir] 24 unit SQ HS 04/22/21 05/12/21 History Polyvinyl Alcohol/Povidone 1 applic BOTH EYES QID 04/22/21 05/12/21 History [[place] Eye Drop] Sodium Chloride 5% Ophth Oint 1 applic LEFT EYE HS 04/22/21 05/12/21 History [Briseida 128] Atorvastatin [Lipitor] 10 mg PO HS 05/12/21 05/12/21 History Insulin Aspart [NovoLOG Flexpen] 10 units SQ AC-TID 05/12/21 05/12/21 History Metoprolol Tartrate [Lopressor] 25 mg PO BID 05/12/21 05/12/21 History Allergies Allergy/AdvReac Type Severity Reaction Status Date / Time Penicillins Allergy Unknown Verified 05/12/21 08:22 Physical Examination - Vital Signs Vital Signs: Vital Signs Temp Pulse Resp BP Pulse Ox 05/13/21 10:00 93 22 94/81 100 05/13/21 09:00 89 17 110/59 99 05/13/21 08:00 98.6 F 91 18 128/61 100 05/13/21 07:00 93 13 96/55 100 05/13/21 06:00 85 26 H 115/64 98 05/13/21 05:00 94 24 114/60 98 05/13/21 04:00 96 21 122/65 99 05/13/21 03:00 98 29 H 103/77 98 05/13/21 02:00 98 24 110/79 99 05/13/21 01:00 94 18 97/56 99 05/13/21 00:04 97 19 97/56 99 05/13/21 00:00 99.7 F H 94 16 109/62 98 05/12/21 23:00 96 22 101/45 98 05/12/21 22:00 90 16 107/67 97 05/12/21 21:00 101 H 20 98/55 97 05/12/21 20:00 99.3 F 104 H 21 115/100 95 05/12/21 19:00 103 H 20 96/61 05/12/21 18:00 105 H 21 92/53 05/12/21 17:00 106 H 23 85/59 99 05/12/21 16:00 97.9 F 109 H 24 102/62 98 05/12/21 15:00 111 H 29 H 98/55 97 05/12/21 14:00 111 H 33 H 108/61 99 05/12/21 13:00 112 H 30 H 118/59 100 05/12/21 12:00 96.3 F L 113 H 32 H 123/63 100 05/12/21 11:48 95.5 F L 100 32 H 123/63 100 05/12/21 11:44 95.5 F L 100 32 H 123/63 100 Intake and Output 05/12/21 05/13/21 05/13/21 22:59 06:59 14:59 Intake Total 9977.228 6267.153 550 Output Total 269 430 175 Balance 5737.716 3506.153 375 Intake: IV 1700 1550 550 D5-0.45% NaCl with KCl 450 1200 450 20Meq/l 1,000 ml @ 150 mls/hr IV .Q6H40M INDIRA Rx# :[id number] Magnesium Sulfate-D5w Pmx 100 100 1 gm In Dextrose/Water 1 100ml.bag @ 100 mls/hr IVPB Q1H INDIRA Rx#: [id number] Potassium Phosphate 10 250 250 mmol In Sodium Chloride 0 .9% 250 ml @ 125 mls/hr IV Q2H INDIRA Rx#:[id number] Sodium Chloride 0.9% 1, 1000 000 ml @ 200 mls/hr IV . Q5H INDIRA Rx#:[id number] Intake, IV Titration 84.135 9.153 Amount Insulin Regular 100 unit 84.135 9.153 In Sodium Chloride 0.9% 100 ml @ 0.1 UNITS/KG/HR 9.621 mls/hr IV .[id number] INDIRA Rx#:[id number] Output: Urine 269 430 175 Other: Voiding Method Indwelling Catheter Indwelling Catheter # Bowel Movements 1 Weight 74.1 kg Results Urinalysis is negative for urinary tract infection. Tucker virus is nondetected. Coagulation studies within normal limits. - Laboratory Findings CBC and BMP: 05/13/21 02:59 05/13/21 15:00 Abnormal Lab Findings: Abnormal Labs 05/12/21 05/12/21 05/12/21 08:16 08:49 09:00 RBC 3.03 L Hgb 9.4 L D Hct 33.2 L MCV 109.8 H D MCHC 28.3 L Neutrophils # Lymphocytes # 0.8 L Macrocytosis Marked A VBG pH VBG pCO2 VBG HCO3 Sodium Chloride Carbon Dioxide BUN Creatinine Glucose POC Glucose (mg/dL) >600 H Plasma Lactic Acid Apolinar Calcium Phosphorus Magnesium Alkaline Phosphatase Total Protein Albumin Cortisol Urine Protein Trace H Urine Glucose (UA) 4+ H Urine Ketones 4+ H Urine Blood Small H Urine RBC 6 H Urine Mucus Rare H 05/12/21 05/12/21 05/12/21 09:00 09:00 09:00 RBC Hgb Hct MCV MCHC Neutrophils # Lymphocytes # Macrocytosis VBG pH 6.89 L* VBG pCO2 10 L* VBG HCO3 2 L* Sodium Chloride 116 H Carbon Dioxide <5 L* BUN 18 H Creatinine Glucose 760 H* POC Glucose (mg/dL) Plasma Lactic Acid Apolinar 4.2 H* Calcium 6.2 L* Phosphorus Magnesium Alkaline Phosphatase 36 L Total Protein 4.9 L Albumin 2.5 L Cortisol Urine Protein Urine Glucose (UA) Urine Ketones Urine Blood Urine RBC Urine Mucus 05/12/21 05/12/21 05/12/21 09:00 09:17 10:21 RBC Hgb Hct MCV MCHC Neutrophils # Lymphocytes # Macrocytosis VBG pH VBG pCO2 VBG HCO3 Sodium Chloride Carbon Dioxide BUN Creatinine Glucose POC Glucose (mg/dL) >600 H >600 H Plasma Lactic Acid Apolinar Calcium Phosphorus Magnesium Alkaline Phosphatase Total Protein Albumin Cortisol 59.8 H Urine Protein Urine Glucose (UA) Urine Ketones Urine Blood Urine RBC Urine Mucus 05/12/21 05/12/21 05/12/21 11:43 11:45 12:04 RBC Hgb Hct MCV MCHC Neutrophils # Lymphocytes # Macrocytosis VBG pH VBG pCO2 VBG HCO3 Sodium Chloride Carbon Dioxide BUN Creatinine Glucose POC Glucose (mg/dL) >600 H >600 H Plasma Lactic Acid Apolinar 5.2 H* Calcium Phosphorus Magnesium Alkaline Phosphatase Total Protein Albumin Cortisol Urine Protein Urine Glucose (UA) Urine Ketones Urine Blood Urine RBC Urine Mucus 05/12/21 05/12/21 05/12/21 13:05 13:58 14:03 RBC Hgb Hct MCV MCHC Neutrophils # Lymphocytes # Macrocytosis VBG pH VBG pCO2 VBG HCO3 Sodium Chloride 113 H Carbon Dioxide <5 L* BUN 25 H Creatinine 1.51 H Glucose 541 H* POC Glucose (mg/dL) >600 H 462 H Plasma Lactic Acid Apolinar Calcium Phosphorus Magnesium 2.5 H Alkaline Phosphatase Total Protein Albumin Cortisol Urine Protein Urine Glucose (UA) Urine Ketones Urine Blood Urine RBC Urine Mucus 05/12/21 05/12/21 05/12/21 15:02 16:00 17:00 RBC Hgb Hct MCV MCHC Neutrophils # Lymphocytes # Macrocytosis VBG pH VBG pCO2 VBG HCO3 Sodium Chloride Carbon Dioxide BUN Creatinine Glucose POC Glucose (mg/dL) 377 H 313 H 204 H Plasma Lactic Acid Apolinar Calcium Phosphorus Magnesium Alkaline Phosphatase Total Protein Albumin Cortisol Urine Protein Urine Glucose (UA) Urine Ketones Urine Blood Urine RBC Urine Mucus 05/12/21 05/12/21 05/12/21 17:08 17:57 19:09 RBC Hgb Hct MCV MCHC Neutrophils # Lymphocytes # Macrocytosis VBG pH VBG pCO2 VBG HCO3 Sodium Chloride Carbon Dioxide BUN Creatinine Glucose POC Glucose (mg/dL) 148 H 141 H Plasma Lactic Acid Apolinar 3.7 H* Calcium Phosphorus Magnesium Alkaline Phosphatase Total Protein Albumin Cortisol Urine Protein Urine Glucose (UA) Urine Ketones Urine Blood Urine RBC Urine Mucus 05/12/21 05/12/21 05/12/21 20:14 21:01 21:08 RBC Hgb Hct MCV MCHC Neutrophils # Lymphocytes # Macrocytosis VBG pH VBG pCO2 VBG HCO3 Sodium 147 H Chloride 118 H Carbon Dioxide 13 L BUN 24 H Creatinine 1.18 H Glucose 204 H POC Glucose (mg/dL) 146 H 173 H Plasma Lactic Acid Apolinar Calcium Phosphorus 1.0 L* Magnesium Alkaline Phosphatase Total Protein Albumin Cortisol Urine Protein Urine Glucose (UA) Urine Ketones Urine Blood Urine RBC Urine Mucus 05/12/21 05/12/21 05/13/21 21:46 22:54 00:02 RBC Hgb Hct MCV MCHC Neutrophils # Lymphocytes # Macrocytosis VBG pH VBG pCO2 VBG HCO3 Sodium Chloride Carbon Dioxide BUN Creatinine Glucose POC Glucose (mg/dL) 217 H 241 H 244 H Plasma Lactic Acid Apolinar Calcium Phosphorus Magnesium Alkaline Phosphatase Total Protein Albumin Cortisol Urine Protein Urine Glucose (UA) Urine Ketones Urine Blood Urine RBC Urine Mucus 05/13/21 05/13/21 05/13/21 01:44 02:58 02:59 RBC 3.26 L Hgb 10.3 L Hct 31.4 L MCV MCHC Neutrophils # 7.8 H Lymphocytes # 0.4 L Macrocytosis VBG pH VBG pCO2 VBG HCO3 Sodium Chloride Carbon Dioxide BUN Creatinine Glucose POC Glucose (mg/dL) 282 H 269 H Plasma Lactic Acid Apolinar Calcium Phosphorus Magnesium Alkaline Phosphatase Total Protein Albumin Cortisol Urine Protein Urine Glucose (UA) Urine Ketones Urine Blood Urine RBC Urine Mucus 05/13/21 05/13/21 05/13/21 02:59 04:23 06:19 RBC Hgb Hct MCV MCHC Neutrophils # Lymphocytes # Macrocytosis VBG pH VBG pCO2 VBG HCO3 Sodium Chloride 118 H Carbon Dioxide 13 L BUN 21 H Creatinine Glucose 273 H POC Glucose (mg/dL) 228 H 191 H Plasma Lactic Acid Apolinar Calcium 8.3 L Phosphorus Magnesium Alkaline Phosphatase Total Protein Albumin Cortisol Urine Protein Urine Glucose (UA) Urine Ketones Urine Blood Urine RBC Urine Mucus 05/13/21 05/13/21 05/13/21 07:50 08:55 10:26 RBC Hgb Hct MCV MCHC Neutrophils # Lymphocytes # Macrocytosis VBG pH VBG pCO2 VBG HCO3 Sodium Chloride Carbon Dioxide BUN Creatinine Glucose POC Glucose (mg/dL) 151 H 162 H 152 H Plasma Lactic Acid Apolinar Calcium Phosphorus Magnesium Alkaline Phosphatase Total Protein Albumin Cortisol Urine Protein Urine Glucose (UA) Urine Ketones Urine Blood Urine RBC Urine Mucus Assessment and Plan Assessment: Altered mental status: Leonela metabolic encephalopathy from DKA. Rule out seizure (since has gaze deviation to the bottom and her mentation is continued to be altered even tough her blood sugar is normal). Diabetic ketoacidosis---resolved History of old left thalamic stroke in 2018 (please refer to HPI for further details since ?abscess on read but it was concluded it was subacute stroke). atrial fibrillation on eliquis Type 1 diabetes Sleep apnea Plan: Ordered a stat MRI the brain. I ordered the an urgent EEG. Because of the concern of seizure with a gaze deviation looking downward and continued confusion, I placed the patient on Keppra 1500 mg loading dose then started the patient on the Keppra 500 mg every 12 hours. I gave the patient 2mg Ativan once. Placed on seizure precaution and seizure protocol. Patient is on Lipitor 10 mg daily at bedtime and Eliquis 5 mg 1 tablet twice a day for secondary stroke prophylaxis. Will defer the rest of medical managent to the primary and ICU team. The plan is discussed with the patient's nurse. Thank you for the consultation. Alejandro Ramos MD Neuro-Hospitalist Time with Patient: Greater than 30
[2021-05-13 20:16] LABS: Glucose,Whole Blood 184 mg/dL (75-99)
[2021-05-13] MEDS: ATORVASTATIN 10 MG TAB PO SCH (20:17)
--- NOTE | 2021-05-13 20:36 | P.PN ---
Subjective This is a pleasant 65 years old female with multiple medical problems as below. This because of DKA and altered mental status. Her DKA is controlled and currently she is kept on Levemir insulin and insulin sliding scale. Glucose Chinese 146-2-4. However patient altered mental status did not improve. Neurologist consulted, seizure is highly suspected due to fixed gaze and continuous to fusion. MRI of the brain: Old Left thalamus infarct, 1 cm. This area showed ring enhancement on old exam. This could be residual of an acute infarct, resolved inflammatory process such as an abscess. No evidence of new abnormality EEG: Pending However patient already started on Keppra by neurologist Review of systems: N/a Active Medications Generic Name Dose Route Start Last Admin Trade Name Freq PRN Reason Stop Dose Admin Apixaban 5 mg 05/12/21 21:00 05/13/21 20:17 Apixaban 5 Mg Tab PO Not Given BID INDIRA Protocol Atorvastatin Calcium 10 mg 05/12/21 21:00 05/13/21 20:17 Atorvastatin 10 Mg Tab PO Not Given HS INDIRA Haloperidol Lactate 1 mg 05/13/21 15:00 Haloperidol Lactate 5 Mg/Ml 1 Ml Vial IVP Q6HR PRN Agitation or Acute Psychosis Levetiracetam 500 mg/ Sodium 105 mls @ 400 mls/hr 05/13/21 21:00 05/13/21 20:22 Chloride IVPB 400 mls/hr Q12HR INDIRA Administration Sodium Chloride 1,000 mls @ 100 mls/hr 05/13/21 16:30 05/13/21 18:17 Saline 0.9% IV 100 mls/hr .Q10H INDIRA Administration Insulin Aspart 0 unit 05/13/21 17:30 05/13/21 20:22 Insulin Aspart (Novolog) 100 Unit/Ml Vial SQ 2 unit ACHS INDIRA Administration Protocol Insulin Detemir 12 unit 05/13/21 21:00 05/13/21 20:21 Insulin Detemir (Levemir) 100 Unit/Ml Syr SQ 12 unit HS INDIRA Administration Metoprolol Tartrate 25 mg 05/12/21 21:00 05/13/21 20:17 Metoprolol Tartrate 25 Mg Tab PO Not Given BID INDIRA Miscellaneous Information 1 each 05/12/21 09:42 Magnesium Replacement Protocol 1 Each Misc MISCELLANE DAILY PRN Per Protocol Protocol Miscellaneous Information 1 each 05/12/21 09:42 Potassium Replacement Protocol 1 Each [facility] [place] PRN Per Protocol Miscellaneous Information 1 each 05/12/21 21:57 Phosphorus Replacement Protoco 1 Each [facility] [place] DAILY PRN Per Protocol Protocol Naloxone HCl 0.2 mg 05/12/21 10:20 Naloxone 0.4 Mg/Ml 1 Ml Vial IV Q2M PRN Opioid Reversal Pantoprazole Sodium 40 mg 05/12/21 13:00 05/13/21 08:38 Pantoprazole 40 Mg/10 Ml Vial IVP 40 mg DAILY INDIRA Administration Objective - Vital Signs Vital signs: Vital Signs Temp 98.4 F 05/13/21 16:00 Pulse 83 05/13/21 19:00 Resp 25 H 05/13/21 19:00 BP 96/54 05/13/21 19:00 Pulse Ox 92 L 05/13/21 19:00 Intake & Output 05/13/21 05/13/21 05/14/21 06:59 18:59 06:59 Intake Total 2465.041 1732.173 100 Output Total 575 445 Balance 1608.902 5121.173 100 Weight 74.1 kg Intake: IV 2450 1700 100 D5-0.45% NaCl with KCl 1650 1500 20Meq/l 1,000 ml @ 150 mls/hr IV .Q6H40M INDIRA Rx# :[id number] Magnesium Sulfate-D5w Pmx 100 100 1 gm In Dextrose/Water 1 100ml.bag @ 100 mls/hr IVPB Q1H INDIRA Rx#: [id number] Potassium Phosphate 10 500 mmol In Sodium Chloride 0 .9% 250 ml @ 125 mls/hr IV Q2H INDIRA Rx#:[id number] Sodium Chloride 0.9% 1, 100 000 ml @ 100 mls/hr IV . Q10H INDIRA Rx#:[id number] Sodium Chloride 0.9% 1, 200 000 ml @ 200 mls/hr IV . Q5H INDIRA Rx#:[id number] levETIRAcetam IV 1,500 mg 100 In Saline 1 100ml.bag @ 400 mls/hr IVPB ONCE STA Rx#:[id number] Intake, IV Titration 15.041 32.173 Amount Insulin Regular 100 unit 15.041 32.173 In Sodium Chloride 0.9% 100 ml @ 0.1 UNITS/KG/HR 9.621 mls/hr IV .[id number] COUNT INCLUDES THE [facility] Rx#:[id number] Output: Urine 575 445 Other: Voiding Method Indwelling Catheter External Catheter # Bowel Movements 1 - Exam -GENERAL: The patient is confused, does not respond however she looks around. She moves upper and lower extremity continuously in in slow rhythm HEENT: Pupils are round and equally reacting to light. EOMI. No scleral icterus. No conjunctival pallor. Normocephalic, atraumatic. No pharyngeal erythema. No thyromegaly. CARDIOVASCULAR: S1 and S2 present. No murmurs, rubs, or gallops. PULMONARY: Chest is clear to auscultation, no wheezing or crackles. ABDOMEN: Soft, nontender, nondistended, normoactive bowel sounds. No palpable organomegaly. MUSCULOSKELETAL: No joint swelling or deformity. EXTREMITIES: No cyanosis, clubbing, or pedal edema. NEUROLOGICAL: Gross neurological examination did not reveal any focal deficits. SKIN: No rashes. no petechiae. - Labs CBC & Chem 7: 05/13/21 02:59 05/13/21 15:00 Labs: Abnormal Lab Results - Last 24 Hours (Table) 05/12/21 05/12/21 05/12/21 Range/Units 09:00 21:01 21:08 RBC (3.80-5.40) m/uL Hgb (11.4-16.0) gm/dL Hct (34.0-46.0) % Neutrophils # (1.3-7.7) k/uL Lymphocytes # (1.0-4.8) k/uL Sodium 147 H (137-145) mmol/L Chloride 118 H (98-107) mmol/L Carbon Dioxide 13 L (22-30) mmol/L BUN 24 H (7-17) mg/dL Creatinine 1.18 H (0.52-1.04) mg/dL Glucose 204 H (74-99) mg/dL POC Glucose (mg/dL) 173 H (75-99) mg/dL Calcium (8.4-10.2) mg/dL Phosphorus 1.0 L* (2.5-4.5) mg/dL Cortisol 59.8 H (3.10-22.40) ug/dL 05/12/21 05/12/21 05/13/21 Range/Units 21:46 22:54 00:02 RBC (3.80-5.40) m/uL Hgb (11.4-16.0) gm/dL Hct (34.0-46.0) % Neutrophils # (1.3-7.7) k/uL Lymphocytes # (1.0-4.8) k/uL Sodium (137-145) mmol/L Chloride (98-107) mmol/L Carbon Dioxide (22-30) mmol/L BUN (7-17) mg/dL Creatinine (0.52-1.04) mg/dL Glucose (74-99) mg/dL POC Glucose (mg/dL) 217 H 241 H 244 H (75-99) mg/dL Calcium (8.4-10.2) mg/dL Phosphorus (2.5-4.5) mg/dL Cortisol (3.10-22.40) ug/dL 05/13/21 05/13/21 05/13/21 Range/Units 01:44 02:58 02:59 RBC 3.26 L (3.80-5.40) m/uL Hgb 10.3 L (11.4-16.0) gm/dL Hct 31.4 L (34.0-46.0) % Neutrophils # 7.8 H (1.3-7.7) k/uL Lymphocytes # 0.4 L (1.0-4.8) k/uL Sodium (137-145) mmol/L Chloride (98-107) mmol/L Carbon Dioxide (22-30) mmol/L BUN (7-17) mg/dL Creatinine (0.52-1.04) mg/dL Glucose (74-99) mg/dL POC Glucose (mg/dL) 282 H 269 H (75-99) mg/dL Calcium (8.4-10.2) mg/dL Phosphorus (2.5-4.5) mg/dL Cortisol (3.10-22.40) ug/dL 05/13/21 05/13/21 05/13/21 Range/Units 02:59 04:23 06:19 RBC (3.80-5.40) m/uL Hgb (11.4-16.0) gm/dL Hct (34.0-46.0) % Neutrophils # (1.3-7.7) k/uL Lymphocytes # (1.0-4.8) k/uL Sodium (137-145) mmol/L Chloride 118 H (98-107) mmol/L Carbon Dioxide 13 L (22-30) mmol/L BUN 21 H (7-17) mg/dL Creatinine (0.52-1.04) mg/dL Glucose 273 H (74-99) mg/dL POC Glucose (mg/dL) 228 H 191 H (75-99) mg/dL Calcium 8.3 L (8.4-10.2) mg/dL Phosphorus (2.5-4.5) mg/dL Cortisol (3.10-22.40) ug/dL 05/13/21 05/13/21 05/13/21 Range/Units 07:50 08:55 10:26 RBC (3.80-5.40) m/uL Hgb (11.4-16.0) gm/dL Hct (34.0-46.0) % Neutrophils # (1.3-7.7) k/uL Lymphocytes # (1.0-4.8) k/uL Sodium (137-145) mmol/L Chloride (98-107) mmol/L Carbon Dioxide (22-30) mmol/L BUN (7-17) mg/dL Creatinine (0.52-1.04) mg/dL Glucose (74-99) mg/dL POC Glucose (mg/dL) 151 H 162 H 152 H (75-99) mg/dL Calcium (8.4-10.2) mg/dL Phosphorus (2.5-4.5) mg/dL Cortisol (3.10-22.40) ug/dL 05/13/21 05/13/21 05/13/21 Range/Units 11:03 11:52 12:56 RBC (3.80-5.40) m/uL Hgb (11.4-16.0) gm/dL Hct (34.0-46.0) % Neutrophils # (1.3-7.7) k/uL Lymphocytes # (1.0-4.8) k/uL Sodium (137-145) mmol/L Chloride (98-107) mmol/L Carbon Dioxide (22-30) mmol/L BUN (7-17) mg/dL Creatinine (0.52-1.04) mg/dL Glucose (74-99) mg/dL POC Glucose (mg/dL) 135 H 141 H 143 H (75-99) mg/dL Calcium (8.4-10.2) mg/dL Phosphorus (2.5-4.5) mg/dL Cortisol (3.10-22.40) ug/dL 05/13/21 05/13/21 05/13/21 Range/Units 14:47 15:00 18:20 RBC (3.80-5.40) m/uL Hgb (11.4-16.0) gm/dL Hct (34.0-46.0) % Neutrophils # (1.3-7.7) k/uL Lymphocytes # (1.0-4.8) k/uL Sodium (137-145) mmol/L Chloride 118 H (98-107) mmol/L Carbon Dioxide 18 L (22-30) mmol/L BUN (7-17) mg/dL Creatinine (0.52-1.04) mg/dL Glucose 133 H (74-99) mg/dL POC Glucose (mg/dL) 146 H 224 H (75-99) mg/dL Calcium (8.4-10.2) mg/dL Phosphorus 1.6 L (2.5-4.5) mg/dL Cortisol (3.10-22.40) ug/dL 05/13/21 Range/Units 20:14 RBC (3.80-5.40) m/uL Hgb (11.4-16.0) gm/dL Hct (34.0-46.0) % Neutrophils # (1.3-7.7) k/uL Lymphocytes # (1.0-4.8) k/uL Sodium (137-145) mmol/L Chloride (98-107) mmol/L Carbon Dioxide (22-30) mmol/L BUN (7-17) mg/dL Creatinine (0.52-1.04) mg/dL Glucose (74-99) mg/dL POC Glucose (mg/dL) 184 H (75-99) mg/dL Calcium (8.4-10.2) mg/dL Phosphorus (2.5-4.5) mg/dL Cortisol (3.10-22.40) ug/dL Microbiology - Last 24 Hours (Table) 05/12/21 Unknown Urine Culture - Preliminary Urine,Catheterized Assessment and Plan Assessment: Diabetic ketoacidosis Metabolic encephalopathy, rule out seizure chronic atrial fibrillation History of CVA/TIA History of GERD History of sleep apnea on CPAP/BiPAP Hypothyroidism Plan: this is a pleasant 65 years old female who presents with DKA and AMS. anion gap Has been closed, continue with insulin Levemir 12 units at bedtime with insulin sliding scale Neurology consult team on the case, status post EEG and result is pending MRI of the brain per neurology service showing no new findings Continue with antiseizure medication per neurology. Currently patient is on Keppra Patient currently is on normal saline at 100 mL per hour Continue with Tylenol as needed Labs and medication were reviewed.. Continue same treatment. Continue with symptomatic treatment. Resume home medication. Monitor lytes and vitals. DVT and GI prophylaxis. Further recommendations as per clinical course of the patient DVT prophylaxis: Eliquis GI Prophylaxis: Ppi Prognosis is guarded
[2021-05-13] MEDS ORDERED: levETIRAcetam IV 500 MG in SODIUM CHLORIDE 0.9% 100 ML IVPB SCH (21:00)
[2021-05-13] MEDS ORDERED: INSULIN DETEMIR (LEVEMIR) 100 UNIT/ML SYR SQ SCH (21:00)
[2021-05-13] MEDS ORDERED: levETIRAcetam IV 1,000 MG in SALINE 1 100ML.BAG IVPB ONE (22:00)
[2021-05-14 02:35] LABS: Glucose,Whole Blood 70 mg/dL (75-99)
[2021-05-14] MEDS ORDERED: DEXTROSE 50% SYRINGE 50 ML IVP ONE (02:36)
[2021-05-14 02:56] LABS: Glucose,Whole Blood 111 mg/dL (75-99)
[2021-05-14] MEDS: SODIUM CHLORIDE 0.9% 1,000 ML IV SCH ×3 (02:58→21:38)
[2021-05-14 05:00] LABS: HCT 32.9 % (34.0-46.0); HGB 11.1 gm/dL (11.4-16.0); MCH 31.1 pg (25.0-35.0); MCHC 33.9 g/dL (31.0-37.0); MCV 91.8 fL (80.0-100.0); Mean Platelet Volume 7.2; Platelet Count 191 k/uL (150-450); RBC 3.58 m/uL (3.80-5.40); RDW 13.4 % (11.5-15.5); WBC 7.4 k/uL (3.8-10.6)
[2021-05-14 05:11] LABS: ALT 20 U/L (4-34); AST 43 U/L (14-36); African American GFR (CKD) >90 (>60 ml/min/1.73 sqM); Albumin 3.1 g/dL (3.5-5.0); Alkaline Phosphatase 64 U/L (38-126); Anion Gap 9 mmol/L; Blood Urea Nitrogen 7 mg/dL (7-17); Calcium 8.4 mg/dL (8.4-10.2); Carbon Dioxide 17 mmol/L (22-30); Chloride 115 mmol/L (98-107); Glucose 100 mg/dL (74-99); Non-African American GFR(CKD) >90 (>60 ml/min/1.73 sqM); Potassium 3.9 mmol/L (3.5-5.1); Sodium 141 mmol/L (137-145); Total Bilirubin 0.3 mg/dL (0.2-1.3); Total Protein 6.1 g/dL (6.3-8.2)
[2021-05-14 07:01] LABS: Glucose,Whole Blood 102 mg/dL (75-99)
[2021-05-14] MEDS: METOPROLOL TARTRATE 25 MG TAB PO SCH (08:19)
[2021-05-14] MEDS: APIXABAN 5 MG TAB PO SCH (08:19)
[2021-05-14] MEDS: INSULIN ASPART (NovoLOG) 100 UNIT/ML VIAL SQ SCH ×4 (08:19→20:37)
[2021-05-14] MEDS: PANTOPRAZOLE 40 MG/10 ML VIAL IVP SCH (08:30)
[2021-05-14] MEDS: levETIRAcetam IV 1,000 MG in SODIUM CHLORIDE 0.9% 100 ML IVPB SCH ×2 (08:31→21:38)
--- NOTE | 2021-05-14 09:41 | EEG ---
ELECTROENCEPHALOGRAM REPORT PROCEDURE DATE: 05/13/21 PROCEDURE: Electroencephalogram (EEG) Report TECHNIQUE: This is a report from a prolonged continuous 2.5 hour inpatient EEG performed in the 10/20 electrode placement system. HISTORY: Ketoacidosis, diabetes, gastroesophageal reflux, obstructive sleep apnea. CURRENT MEDICATIONS: Protonix, magnesium, Lopressor, insulin, Lipitor, and others. FINDINGS: Recording start time: 05/13/2021 at 11:50 am. Recording end time: 05/13/2021 at 2:46 pm. Please note that quality of this recording was significantly limited due to the presence of muscle artifact, after approximately 13:17 the amount of muscle artifact declined and quality improved asthe patient was given Ativan. EVENTS: During this prolonged 2.5 hour inpatient digital EEG, no clinical or electrographic seizures were recorded. BACKGROUND: Background frequencies consisted of unsustained 5-6 Hz waveforms with intermixed delta range slowing. ACTIVATION: Hyperventilation: Not performed. Photic stimulation: Not performed. Sleep: Drowsy. ABNORMALITIES: 1. Frequent moderate voltage triphasic waves were seen. 2. Diffuse 3-6 hertz slow wave activity was seen. IMPRESSION: Limited study, abnormal EEG. The triphasic waves mentioned above are not epileptiform in nature. Triphasic waves can be seen in the setting of a metabolic encephalopathy. The diffuse theta delta range slowing mentioned above is not epileptiform in nature. In combination, these findings indicate moderate diffuse cerebral dysfunction as may be seen in a toxometabolic encephalopathy. No seizures were recorded. No epileptiform activity was present. MMODL / IJN: [id number] / RACHEL
[2021-05-14 09:52] LABS: T4, Free (Free Thyroxine) 1.91 ng/dL (0.78-2.19)
[2021-05-14] MEDS: ENOXAPARIN 40 MG/0.4 ML SYRINGE SQ SCH (11:12)
[2021-05-14] MEDS: METOPROLOL TARTRATE 5 MG/5 ML VIAL IVP SCH ×3 (11:12→23:45)
[2021-05-14 11:22] LABS: Glucose,Whole Blood 127 mg/dL (75-99)
--- NOTE | 2021-05-14 12:54 | P.PN ---
Subjective Progress Note Date: 05/14/21 Principal diagnosis: Acute DKA This is a 65-year-old female with history of diabetes, insulin-requiring, chronic atrial fibrillation, previous CVA/TIA, obstructive sleep apnea syndrome, hypothyroidism, patient was last admitted to [facility] on 04/23 and discharged basically the same day when she presented with lightheadedness and chest pain. Seen by cardiology and underwent a full workup including stress testing and the patient was cleared for discharge basically the same day she was admitted. This time, the patient was brought in by EMS when she had change in mental status and unresponsiveness. Upon EMS arrival, her blood sugar was noted to be extremely elevated. Patient was brought to the ER and she was noted to be in diabetic ketoacidosis with blood sugar of 760, positive ketones, positive anion gap metabolic acidosis, negative CT of the brain, patient was admitted, placed on the DKA protocol, and this consult was initiated. I evaluated the patient while in the ER, however could not obtain any history from the patient, and no family members with the patient. Hence most of the information I have was obtained from the chart Patient was reevaluated today on 05/13/2021, remains confused, very sleepy, however she is arousable, follows very simple instructions but does not seem to be answering any questions. Patient would squeeze hands, and wiggle toes, but she would not answer questions about her name or where she is. Obviously she is quite confused, and her mental status remains extremely poor. Today I recommended a neurological evaluation to address her mental status. Her anion gap has closed, continues to have a low bicarb, but her sodium is correcting nicely, and she is a bit hyperchloremic. Remains on D5 45 she is also on insulin at 3.2 units per hour. Patient did have previous history of CVA, and I'm not certain what is her baseline mental status is like. I am recommending urology to evaluate this patient. Pulmonary-[place], the patient is not in any distress, and she is only on room air with O2 saturation of 98%. CBC is relatively normal electrolytes are normal bicarb is low at 13. Anion gap is 12. Blood sugar is around 200 Reevaluated today on 05/14/2021, patient remains in the ICU, remains confused and encephalopathic. Patient is on room air, O2 saturation is in the 90s, 98%. She remains on IV fluid of 0.9 normal saline at 100 mL per hour. Patient is extremely lethargic, not able to follow any instructions. She was placed on Keppra by neurology, EEG is pending. Ammonia level is pending. MRI report from yesterday was noted. The urologist feels that the patient has metabolic encephalopathy and not certain whether the patient may have had a seizure. At sugar today is 127. A left lites are normal bicarb is 17 improved CBC is relatively normal renal profile is normal ammonia level is 13, normal thyroid profile noted. Objective - Vital Signs Vital signs: Vital Signs Temp 100.7 F H 05/14/21 08:00 Pulse 97 05/14/21 11:00 Resp 24 05/14/21 11:00 BP 140/71 05/14/21 11:00 Pulse Ox 98 05/14/21 11:00 Intake & Output 05/13/21 05/14/21 05/14/21 18:59 06:59 18:59 Intake Total 1680.477 7074 600 Output Total 445 700 400 Balance 1287.173 500 200 Weight 74.4 kg Intake: IV 1700 1200 500 D5-0.45% NaCl with KCl 1500 20Meq/l 1,000 ml @ 150 mls/hr IV .Q6H40M [facility] Rx# :[id number] Magnesium Sulfate-D5w Pmx 100 1 gm In Dextrose/Water 1 100ml.bag @ 100 mls/hr IVPB Q1H [facility] Rx#: [id number] Sodium Chloride 0.9% 1, 1200 500 000 ml @ 100 mls/hr IV . Q10H [facility] Rx#:[id number] levETIRAcetam IV 1,500 mg 100 In Saline 1 100ml.bag @ 400 mls/hr IVPB ONCE [facility] Rx#:[id number] Intake, IV Titration 32.173 100 Amount Insulin Regular 100 unit 32.173 In Sodium Chloride 0.9% 100 ml @ 0.1 UNITS/KG/HR 9.621 mls/hr IV .[id number] [facility] Rx#:[id number] levETIRAcetam IV 1,000 mg 100 In Sodium Chloride 0.9% 100 ml @ 400 mls/hr IVPB Q12HR [facility] Rx#:[id number] Output: Urine 445 700 400 Other: Voiding Method External Catheter External Catheter Diaper External Catheter # Voids 1 2 - Exam General Impression: Revealed 65-year-old female, arousable, encephalopathic, does not follow any instructions. HEENT: Camille, EOMI, nonicteric, no neck masses, no JVD, no stridor, dry mucous membranes. Cardiovascular: Normal S1 and S2, no S3 gallop. Chest: Symmetrical chest expansion, no crackles or rhonchi or wheezes. Abdomen: Soft nontender no megaly no rebound no guarding. Musculoskeletal: No deformities, could not assess range of motion as the patient does not seem to be cooperative. Motor: Could not assess. Neurological: Arousable, opens eyes, but does not follow any instructions today. Not answering any questions Skin: No rashes. No cyanosis. Psychiatric: Could not assess mostly because of mental status. - Labs CBC & Chem 7: 05/14/21 04:22 05/14/21 04:22 Labs: Abnormal Lab Results - Last 24 Hours (Table) 05/13/21 05/13/21 05/13/21 Range/Units 12:56 14:47 15:00 RBC (3.80-5.40) m/uL Hgb (11.4-16.0) gm/dL Hct (34.0-46.0) % Chloride 118 H (98-107) mmol/L Carbon Dioxide 18 L (22-30) mmol/L Glucose 133 H (74-99) mg/dL POC Glucose (mg/dL) 143 H 146 H (75-99) mg/dL Phosphorus 1.6 L (2.5-4.5) mg/dL AST (14-36) U/L Total Protein (6.3-8.2) g/dL Albumin (3.5-5.0) g/dL TSH (0.465-4.680) mIU/L 05/13/21 05/13/21 05/14/21 Range/Units 18:20 20:14 02:33 RBC (3.80-5.40) m/uL Hgb (11.4-16.0) gm/dL Hct (34.0-46.0) % Chloride (98-107) mmol/L Carbon Dioxide (22-30) mmol/L Glucose (74-99) mg/dL POC Glucose (mg/dL) 224 H 184 H 70 L (75-99) mg/dL Phosphorus (2.5-4.5) mg/dL AST (14-36) U/L Total Protein (6.3-8.2) g/dL Albumin (3.5-5.0) g/dL TSH (0.465-4.680) mIU/L 05/14/21 05/14/21 05/14/21 Range/Units 02:54 04:22 04:22 RBC 3.58 L (3.80-5.40) m/uL Hgb 11.1 L (11.4-16.0) gm/dL Hct 32.9 L (34.0-46.0) % Chloride 115 H (98-107) mmol/L Carbon Dioxide 17 L (22-30) mmol/L Glucose 100 H (74-99) mg/dL POC Glucose (mg/dL) 111 H (75-99) mg/dL Phosphorus (2.5-4.5) mg/dL AST 43 H (14-36) U/L Total Protein 6.1 L (6.3-8.2) g/dL Albumin 3.1 L (3.5-5.0) g/dL TSH (0.465-4.680) mIU/L 05/14/21 05/14/21 05/14/21 Range/Units 04:22 07:00 11:20 RBC (3.80-5.40) m/uL Hgb (11.4-16.0) gm/dL Hct (34.0-46.0) % Chloride (98-107) mmol/L Carbon Dioxide (22-30) mmol/L Glucose (74-99) mg/dL POC Glucose (mg/dL) 102 H 127 H (75-99) mg/dL Phosphorus (2.5-4.5) mg/dL AST (14-36) U/L Total Protein (6.3-8.2) g/dL Albumin (3.5-5.0) g/dL TSH 5.610 H (0.465-4.680) mIU/L Microbiology - Last 24 Hours (Table) 05/12/21 21:08 Blood Culture - Preliminary Blood No Growth after 24 hours Assessment and Plan Assessment: Impression: Acute diabetic ketoacidosis. Resolved. Acute toxic metabolic encephalopathy secondary to DKA. Possible seizure disorder. Possible CVA. Acute anion gap metabolic acidosis secondary to DKA. Resolved. History of chronic atrial fibrillation. History of insulin-dependent diabetes. History of GERD. History of obstructive sleep apnea syndrome. History of CVA/TIA. Recommendation: Continue present supportive care measures. Continue to monitor in the ICU. Neurology to continue to address her mental status and encephalopathy. Continue to monitor sugars closely. GI and DVT prophylaxis. Prognosis is relatively guarded We'll continue to follow while in the ICU. EEG is pending. Time with Patient: Less than 30
--- NOTE | 2021-05-14 15:09 | P.PN ---
Subjective Progress Note Date: 05/14/21 Principal diagnosis: Acute DKA with Metabolic encephalopathy This is a 59-year-old female admitted with acute DKA, encephalopathy and multiple other medical issues. Maintained on seizure precautions, Keppra as per neurology. MRI noted ,reviewed as per neurology. Ammonia level XIII. Repeat EEG pending. Obtunded, facial grimacing only to noxious stimuli. Blood sugars controlled, bicarb 17. Objective - Vital Signs Vital signs: Vital Signs Temp 100.7 F H 05/14/21 08:00 Pulse 90 05/14/21 08:00 Resp 31 H 05/14/21 08:00 BP 127/74 05/14/21 08:00 Pulse Ox 96 05/14/21 08:00 Intake & Output 05/13/21 05/14/21 05/14/21 18:59 06:59 18:59 Intake Total 6639.021 1452 300 Output Total 445 700 200 Balance 1287.173 500 100 Weight 74.4 kg Intake: IV 1700 1200 200 D5-0.45% NaCl with KCl 1500 20Meq/l 1,000 ml @ 150 mls/hr IV .Q6H40M [facility] Rx# :[id number] Magnesium Sulfate-D5w Pmx 100 1 gm In Dextrose/Water 1 100ml.bag @ 100 mls/hr IVPB Q1H [facility] Rx#: [id number] Sodium Chloride 0.9% 1, 1200 200 000 ml @ 100 mls/hr IV . Q10H [facility] Rx#:[id number] levETIRAcetam IV 1,500 mg 100 In Saline 1 100ml.bag @ 400 mls/hr IVPB ONCE [facility] Rx#:[id number] Intake, IV Titration 32.173 100 Amount Insulin Regular 100 unit 32.173 In Sodium Chloride 0.9% 100 ml @ 0.1 UNITS/KG/HR 9.621 mls/hr IV .[id number] [facility] Rx#:[id number] levETIRAcetam IV 1,000 mg 100 In Sodium Chloride 0.9% 100 ml @ 400 mls/hr IVPB Q12HR [facility] Rx#:[id number] Output: Urine 445 700 200 Other: Voiding Method External Catheter External Catheter # Voids 1 - Exam PHYSICAL EXAM: VITAL SIGNS: As above GENERAL: Sitting up in bed, obtunded, facial grimacing to noxious stimuli. HEENT: Conjunctivae normal. Oral mucosa dry NECK: No JVD. No LNs CARDIOVASCULAR: S1, S2 regular.No murmur RESPIRATION: Breath sounds diminished in the bases. No rhonchi or crackles. ABDOMEN: Soft, nontender . No guarding. no masses palpable. Bowel sounds heard. LEGS: No edema. no swelling NERVOUS SYSTEM: Unable to assess, patient obtunded. Skin: Warm and dry, no rash - Labs CBC & Chem 7: 05/14/21 04:22 05/14/21 04:22 Labs: Abnormal Lab Results - Last 24 Hours (Table) 05/13/21 05/13/21 05/13/21 Range/Units 10:26 11:03 11:52 RBC (3.80-5.40) m/uL Hgb (11.4-16.0) gm/dL Hct (34.0-46.0) % Chloride (98-107) mmol/L Carbon Dioxide (22-30) mmol/L Glucose (74-99) mg/dL POC Glucose (mg/dL) 152 H 135 H 141 H (75-99) mg/dL Phosphorus (2.5-4.5) mg/dL AST (14-36) U/L Total Protein (6.3-8.2) g/dL Albumin (3.5-5.0) g/dL TSH (0.465-4.680) mIU/L 05/13/21 05/13/21 05/13/21 Range/Units 12:56 14:47 15:00 RBC (3.80-5.40) m/uL Hgb (11.4-16.0) gm/dL Hct (34.0-46.0) % Chloride 118 H (98-107) mmol/L Carbon Dioxide 18 L (22-30) mmol/L Glucose 133 H (74-99) mg/dL POC Glucose (mg/dL) 143 H 146 H (75-99) mg/dL Phosphorus 1.6 L (2.5-4.5) mg/dL AST (14-36) U/L Total Protein (6.3-8.2) g/dL Albumin (3.5-5.0) g/dL TSH (0.465-4.680) mIU/L 05/13/21 05/13/21 05/14/21 Range/Units 18:20 20:14 02:33 RBC (3.80-5.40) m/uL Hgb (11.4-16.0) gm/dL Hct (34.0-46.0) % Chloride (98-107) mmol/L Carbon Dioxide (22-30) mmol/L Glucose (74-99) mg/dL POC Glucose (mg/dL) 224 H 184 H 70 L (75-99) mg/dL Phosphorus (2.5-4.5) mg/dL AST (14-36) U/L Total Protein (6.3-8.2) g/dL Albumin (3.5-5.0) g/dL TSH (0.465-4.680) mIU/L 05/14/21 05/14/21 05/14/21 Range/Units 02:54 04:22 04:22 RBC 3.58 L (3.80-5.40) m/uL Hgb 11.1 L (11.4-16.0) gm/dL Hct 32.9 L (34.0-46.0) % Chloride 115 H (98-107) mmol/L Carbon Dioxide 17 L (22-30) mmol/L Glucose 100 H (74-99) mg/dL POC Glucose (mg/dL) 111 H (75-99) mg/dL Phosphorus (2.5-4.5) mg/dL AST 43 H (14-36) U/L Total Protein 6.1 L (6.3-8.2) g/dL Albumin 3.1 L (3.5-5.0) g/dL TSH (0.465-4.680) mIU/L 05/14/21 05/14/21 Range/Units 04:22 07:00 RBC (3.80-5.40) m/uL Hgb (11.4-16.0) gm/dL Hct (34.0-46.0) % Chloride (98-107) mmol/L Carbon Dioxide (22-30) mmol/L Glucose (74-99) mg/dL POC Glucose (mg/dL) 102 H (75-99) mg/dL Phosphorus (2.5-4.5) mg/dL AST (14-36) U/L Total Protein (6.3-8.2) g/dL Albumin (3.5-5.0) g/dL TSH 5.610 H (0.465-4.680) mIU/L Microbiology - Last 24 Hours (Table) 05/12/21 21:08 Blood Culture - Preliminary Blood No Growth after 24 hours Assessment and Plan Assessment: Acute DKA, resolved Acute toxic ,metabolic encephalopathy, possibly related to the above, possibly seizure disorder, possible CVA History of CVA 2017,left thalamic Chronic atrial fibrillation, Diabetes mellitus type 1 Gastroesophageal reflux disease Obstructive Sleep apnea syndrome Plan: Continue on current medication regime ,monitoring and symptomatic treatment. Maintain seizure precautions. Repeat EEG pending. Follow closely with neurology. Lovenox for DVT prophylaxis.PPI for GI prophylaxis. ICU management as per clinical quality rn. Prognosis guarded given multiple complex medical issues. The impression and plan of care has been dictated as directed. : I performed a history and examination of this patient, discussed the same with the dictator. I agree with the dictator's note ,documented as a scribe. Any additional findings or plans will be noted.
[2021-05-14 16:26] LABS: Glucose,Whole Blood 237 mg/dL (75-99)
--- NOTE | 2021-05-14 16:46 | P.PN ---
Subjective Progress Note Date: 05/14/21 Patient was seen at bedside and per the patient nurse patient continues to be altered not responding not following commands. No jerking of any extremities. Overnight she had the low gaze deviation of the eyes. Yesterday because of the consistent gaze deviation was concerned that she had a seizure so overnight I gave her a loading dose of Keppra 5000 mg and increased her Keppra from 500 every 12 hours to 1000 every 12 hours. MR the brain is reported as 1 cm nonenhancing focus in that medial left thalamus consistent with an old infarct or encephalomalacia. This area showed ring enhancement on an old exam with more extensive edema. This could be the residual of acute infarct on the old exam or resolved inflammatory process such as an abscess at. There is no evidence of any new abnormality in the brain. Involuting tumor not excluded. A prolonged 2 1/2 hour EEG on 05/13/2021 it is reported as limited study, abnormal EEG. The triphasic wave mentioned above are not epileptiform in nature. Triphasic waves can be seen in the setting of metabolic encephalopathy. The diffuse data delta range slowing mentioned above is not epileptiform nature. In combination, these findings indicate moderate diffuse cerebral dysfunction as may be seen in toxic metabolic encephalopathy. No seizure rec orded. No epileptiform activities was present. During the hospital stay initially she came in with a temperature of 97.3 and was as low as 93.0. In the morning today her T-max was 100.7 Fahrenheit. She continues to not have any leukocytosis. Her sugar has been the in the range today in the morning between 100 to 120s. Objective - Vital Signs Vital signs: Vital Signs Temp 99.9 F H 05/14/21 12:00 Pulse 90 05/14/21 15:00 Resp 30 H 05/14/21 15:00 BP 132/70 05/14/21 15:00 Pulse Ox 95 05/14/21 15:00 Intake & Output 05/13/21 05/14/21 05/14/21 18:59 06:59 18:59 Intake Total 0575.142 6431 900 Output Total 445 700 800 Balance 1287.173 500 100 Weight 74.4 kg Intake: IV 1700 1200 800 D5-0.45% NaCl with KCl 1500 20Meq/l 1,000 ml @ 150 mls/hr IV .Q6H40M [facility] Rx# :[id number] Magnesium Sulfate-D5w Pmx 100 1 gm In Dextrose/Water 1 100ml.bag @ 100 mls/hr IVPB Q1H [facility] Rx#: [id number] Sodium Chloride 0.9% 1, 1200 800 000 ml @ 100 mls/hr IV . Q10H [facility] Rx#:[id number] levETIRAcetam IV 1,500 mg 100 In Saline 1 100ml.bag @ 400 mls/hr IVPB ONCE [facility] Rx#:[id number] Intake, IV Titration 32.173 100 Amount Insulin Regular 100 unit 32.173 In Sodium Chloride 0.9% 100 ml @ 0.1 UNITS/KG/HR 9.621 mls/hr IV .[id number] [facility] Rx#:[id number] levETIRAcetam IV 1,000 mg 100 In Sodium Chloride 0.9% 100 ml @ 400 mls/hr IVPB Q12HR [facility] Rx#:[id number] Output: Urine 445 700 800 Other: Voiding Method External Catheter External Catheter Diaper External Catheter # Voids 1 2 - Exam GENERAL: The patient is lying and does appear in acute distress but seems somewhat restless. NEUROLOGICAL: Higher mental function: Comatose. Not verbally responsive or following commands. Cranial nerves: I had to manually open her eyes. The pupils are round, equal and reactive to light. Pupils are 3-4mm bilaterally. Primary gaze is midline. No facial weakness. The rest of the cranial nerves could not be assess because of her condition. Motor: Gait could not be assessed because of her condition. The strength is could be assessed but with painful stimuli she is withdrawing all extremities. Cerebellum: Could not be assessed. Sensation:Seems to respond to painful stimuli throughout. Reflexes (right/left): 2+ throughout. Plantars are mute bilaterally. - Labs CBC & Chem 7: 05/14/21 04:22 05/14/21 04:22 Labs: Abnormal Lab Results - Last 24 Hours (Table) 05/13/21 05/13/21 05/14/21 Range/Units 18:20 20:14 02:33 RBC (3.80-5.40) m/uL Hgb (11.4-16.0) gm/dL Hct (34.0-46.0) % Chloride (98-107) mmol/L Carbon Dioxide (22-30) mmol/L Glucose (74-99) mg/dL POC Glucose (mg/dL) 224 H 184 H 70 L (75-99) mg/dL AST (14-36) U/L Total Protein (6.3-8.2) g/dL Albumin (3.5-5.0) g/dL TSH (0.465-4.680) mIU/L 05/14/21 05/14/21 05/14/21 Range/Units 02:54 04:22 04:22 RBC 3.58 L (3.80-5.40) m/uL Hgb 11.1 L (11.4-16.0) gm/dL Hct 32.9 L (34.0-46.0) % Chloride 115 H (98-107) mmol/L Carbon Dioxide 17 L (22-30) mmol/L Glucose 100 H (74-99) mg/dL POC Glucose (mg/dL) 111 H (75-99) mg/dL AST 43 H (14-36) U/L Total Protein 6.1 L (6.3-8.2) g/dL Albumin 3.1 L (3.5-5.0) g/dL TSH (0.465-4.680) mIU/L 05/14/21 05/14/21 05/14/21 Range/Units 04:22 07:00 11:20 RBC (3.80-5.40) m/uL Hgb (11.4-16.0) gm/dL Hct (34.0-46.0) % Chloride (98-107) mmol/L Carbon Dioxide (22-30) mmol/L Glucose (74-99) mg/dL POC Glucose (mg/dL) 102 H 127 H (75-99) mg/dL AST (14-36) U/L Total Protein (6.3-8.2) g/dL Albumin (3.5-5.0) g/dL TSH 5.610 H (0.465-4.680) mIU/L 05/14/21 Range/Units 16:25 RBC (3.80-5.40) m/uL Hgb (11.4-16.0) gm/dL Hct (34.0-46.0) % Chloride (98-107) mmol/L Carbon Dioxide (22-30) mmol/L Glucose (74-99) mg/dL POC Glucose (mg/dL) 237 H (75-99) mg/dL AST (14-36) U/L Total Protein (6.3-8.2) g/dL Albumin (3.5-5.0) g/dL TSH (0.465-4.680) mIU/L Microbiology - Last 24 Hours (Table) 05/12/21 Unknown Urine Culture - Preliminary Urine,Catheterized Gram Neg Bacilli 05/12/21 21:08 Blood Culture - Preliminary Blood No Growth after 24 hours Assessment and Plan Assessment: * Altered mental status: Leonela metabolic encephalopathy from DKA (but expected her mentation to be improved since her DKA has resolved). Initially thought seizure because of low gaze deviation bilaterally but two seperate prolonged EEG did not support seizure. Rule out underlying infection. * Diabetic ketoacidosis---resolved * History of old left thalamic stroke in 2018 (please refer to HPI for further details since ?abscess on read but it was concluded it was subacute stroke). * atrial fibrillation on eliquis * Type 1 diabetes * Sleep apnea Plan: * MR the brain is reported as 1 cm nonenhancing focus in that medial left thalamus consistent with an old infarct or encephalomalacia. This area showed ring enhancement on an old exam with more extensive edema. This could be the residual of acute infarct on the old exam or resolved inflammatory process such as an abscess at. There is no evidence of any new abnormality in the brain. Involuting tumor not excluded. * A prolonged 2 1/2 hour EEG on 05/13/2021 it is reported as limited study, abnormal EEG. The triphasic wave mentioned above are not epileptiform in nature. Triphasic waves can be seen in the setting of metabolic encephalopathy. The diffuse data delta range slowing mentioned above is not epileptiform nature. In combination, these findings indicate moderate diffuse cerebral dysfunction as may be seen in toxic metabolic encephalopathy. No seizure recorded. No epileptiform activities was present. * A prolonged 2 1/2 hour EEG is ordered for today and was notified preliminary that no seizure. * Patient is on Keppra 1000mg every 12 hours for seizure prophylaxis. Will consider tapering it down since two EEG did not support seizure once patient is stable. * I consulted the anesthesiology team for a lumbar puncture and consulted the infection disease. * Patient is on Lipitor 10 mg daily at bedtime and Eliquis 5 mg 1 tablet twice a day for secondary stroke prophylaxis. * Place the patient on Haldol 1 mg every 6 hours as needed for agitation * Will defer the rest of medical managent to the primary and ICU team. The plan is discussed with the patient's nurse. Alejandro Ramos MD Neuro-Hospitalist Time with Patient: Less than 30
--- NOTE | 2021-05-14 17:44 | EEG ---
ELECTROENCEPHALOGRAM REPORT PROCEDURE DATE: 05/14/2021. EEG REPORT: TECHNIQUE: This is a report from a continuous 2.5 hour inpatient digital EEG performed using the 10/20 electrode placement system. HISTORY: Decreased responsiveness. CURRENT MEDICATIONS: Protonix, magnesium, Keppra, insulin, Haldol. FINDINGS: Recording start time: 05/14/2021 at 11:35 am. Recording end time: 05/14/2021 at 2:31 pm. Please note that quality of this recording was limited, in the 2nd half with muscle artifact affecting interpretation. BACKGROUND: The background activity consisted of unsustained 5-6 hertz rhythmic waveforms with some intermixed delta range slowing. ACTIVATION: Hyperventilation: Not performed. Photic stimulation: No driving seen. Sleep: Occasional stage II sleep noted. ABNORMALITIES: 1. Occasional to frequent moderate voltage triphasic waves were seen. These were less frequent in the previous day's recording. 2. Over the more anterior regions, diffuse 3-6 hertz slow wave activity was seen. Frequencies were on the higher end of the spectrum as the recording continued, 4-7 hertz. IMPRESSION: Limited study, abnormal 2.5 hour inpatient video EEG. No clinical or electrographic seizures were recorded. No epileptiform activity was present. The triphasic waves mentioned above are not epileptiform in nature. Triphasic waves can be seen in the setting of a metabolic encephalopathy. The diffuse theta delta range slowing mentioned above is not epileptiform in nature. In combination, these findings indicate moderate diffuse cerebral dysfunction as may be seen in a toxometabolic encephalopathy. MMODL / IJN: [id number] / MTDD
[2021-05-14 18:49] LABS: Folate, Serum 13.3 ng/mL
[2021-05-14] MEDS: ATORVASTATIN 10 MG TAB PO SCH (20:15)
[2021-05-14 20:32] LABS: Glucose,Whole Blood 171 mg/dL (75-99)
[2021-05-14] MEDS: INSULIN DETEMIR (LEVEMIR) 100 UNIT/ML SYR SQ SCH (21:12)
[2021-05-14] MEDS: ACYCLOVIR SODIUM 700 MG in SODIUM CHLORIDE 0.9% 100 ML IVPB SCH (23:45)
--- NOTE | 2021-05-15 00:48 | CONS ---
CONSULTATION DATE OF SERVICE: 05/14/2021 REASON FOR CONSULTATION: Fever and question of encephalitis. HISTORY OF PRESENT ILLNESS: The patient is a 65-year-old female with past medical history significant for diabetes, atrial fibrillation. The patient was brought into the hospital by EMS from home for evaluation of mental status changes. Apparently the patient was noticed to be minimally responsive in the morning of presentation to hospital by the daughter who went upstairs to wake her up. The night before the patient went to bed. The patient was reported to be normal with no symptoms. The patient got up to check her continuous glucose monitor and was reported to be very high, unmeasurable. EMS was called and the patient was brought into the ER. On arrival to the ER, patient initially was afebrile. Subsequently did have a few episodes of hypothermia with temperature 93.7 and this morning the patient did spike a fever of 100.7 degrees Fahrenheit that has prompted this infectious disease consultation. The patient did have a normal white count over the last 3 days. The patient did have a Tucker PCR that was negative. Urine was not significantly positive. Blood culture now showing a Gram-negative bacilli. The patient did have a normal creatinine with AST mildly elevated. Blood culture has been negative. The patient did have a chest x-ray on admission, which was negative for any acute pulmonary process. The patient is currently 98% on room air. Not hypoxic. The patient did have MRI of the brain which shows possible old left thalamus infarct. No other acute abnormality. Infectious Disease was consulted because of her fever and need for antibiotic as well as antiviral and LP has been requested. Could not be done today as the patient received a dose of Lovenox per the nursing staff. All the information has been obtained from review of the chart, talking to nursing staff as well as son who was at the bedside as the patient herself was unable to provide any history. REVIEW OF SYSTEMS: Positive points have been mentioned in HPI. Complete review could not be obtained because of her mental status. PAST MEDICAL HISTORY: Atrial fibrillation, CVA, TIA, diabetes mellitus, gastroesophageal reflux disease, sleep apnea, hypothyroidism, and CVA, Karis's disease. PAST SURGICAL HISTORY: Bariatric surgery, cholecystectomy, tonsillectomy, right ovary removed. SOCIAL HISTORY: No history of smoking, drinking or drug use. FAMILY HISTORY: Mother with history of thyroid problems, father with history of ND. ALLERGIES: PENICILLIN with history of anaphylaxis. MEDICATION: Currently include the patient is on Lipitor, Lovenox, , NovoLog, Levemir, Lamictal, Lopressor, Narcan, Protonix. PHYSICAL EXAMINATION: Her blood pressure 124/68 with a pulse of 85, temperature 98.7, T-max 100.7. She is 98% on room air. General description: The patient is an elderly female lying in bed in no distress. No tachypnea or accessory muscles of respiration use. HEENT: Examination shows slight pallor. No scleral icterus. Oral mucous membranes dry. NECK: Trachea central. No thyromegaly. LUNGS: Unlabored breathing, clear to auscultation anteriorly. No wheeze or crackles. HEART S1, S2. Regular rate and rhythm. ABDOMEN: Soft, no tenderness. No guarding. No rigidity. EXTREMITIES: No edema of the feet. SKIN: No rash or mass palpable. NEUROLOGIC: The patient remains to be lethargic and unresponsive. No neck rigidity was noticed. LABS: Hemoglobin is 11.1, white count 7.4, BUN of 7, creatinine 0.60. Electrolytes have been normal. urine is negative. Urine now showing Gram-negative bacilli. Tucker PCR was negative. Chest x-ray was negative. DIAGNOSTIC IMPRESSION AND PLAN: Patient with fever, unresponsiveness in this patient who does have a normal white count and did have extensive workup including a chest x-ray was negative. Urine is negative. No evidence of any cellulitis. Abdomen soft on clinical examination. Concern for possible encephalitis viral. PLAN: 1. Await lumbar puncture to be completed and will need to send .. 2. We will check the herpes serologies. 3. As clinical suspicious for herpes encephalitis is high, acyclovir will be added empirically. 4. We will follow her clinical condition and further adjust medication if needed. Thank you for this consultation, will follow this patient along with you. MMODL / IJN: [id number] /
[2021-05-15 02:20] LABS: Glucose,Whole Blood 176 mg/dL (75-99)
[2021-05-15 03:47] LABS: HSV I IgG Interp POSITIVE (NEGATIVE); HSV II IgG Interp NEGATIVE (NEGATIVE)
[2021-05-15 05:06] LABS: Basophils % (A) 0 %; Eosinophils # (A) 0.1 k/uL (0-0.7); Eosinophils % (A) 1 %; HGB 11.8 gm/dL (11.4-16.0); Lymphocytes # (A) 0.9 k/uL (1.0-4.8); Lymphocytes % (A) 15 %; MCH 31.3 pg (25.0-35.0); MCHC 34.6 g/dL (31.0-37.0); MCV 90.2 fL (80.0-100.0); Mean Platelet Volume 7.1; Monocytes # (A) 0.3 k/uL (0-1.0); Monocytes % (A) 6 %; Neutrophils # (A) 4.5 k/uL (1.3-7.7); Neutrophils % (A) 77 %; Platelet Count 204 k/uL (150-450); RBC 3.77 m/uL (3.80-5.40); RDW 12.8 % (11.5-15.5); WBC 5.8 k/uL (3.8-10.6)
[2021-05-15 05:22] LABS: ALT 17 U/L (4-34); AST 34 U/L (14-36); African American GFR (CKD) >90 (>60 ml/min/1.73 sqM); Albumin 3.1 g/dL (3.5-5.0); Alkaline Phosphatase 78 U/L (38-126); Anion Gap 7 mmol/L; Blood Urea Nitrogen 7 mg/dL (7-17); Calcium 8.3 mg/dL (8.4-10.2); Carbon Dioxide 23 mmol/L (22-30); Chloride 107 mmol/L (98-107); Glucose 201 mg/dL (74-99); Non-African American GFR(CKD) >90 (>60 ml/min/1.73 sqM); Potassium 3.5 mmol/L (3.5-5.1); Sodium 137 mmol/L (137-145); Total Protein 6.1 g/dL (6.3-8.2)
[2021-05-15] MEDS ORDERED: Potassium Replacement Protocol 1 EACH MISC MISCELLANE PRN (05:37)
[2021-05-15] MEDS: POTASSIUM CHLORIDE 10 MEQ in WATER FOR INJECTION 1 100ML.BAG IVPB SCH ×4 (06:03→09:34)
[2021-05-15 06:55] LABS: Appearance,Urine Cloudy (Clear); Bacteria,Urine Rare /hpf; Bilirubin,Urine Negative (Negative); Blood,Urine Trace (Negative); Color,Urine Light Yellow; Glucose,Urine (UA) 3+ (Negative); Ketones,Urine 1+ (Negative); Leukocyte Esterase,Urine Large (Negative); Mucus,Urine Rare /hpf; Nitrite,Urine Negative (Negative); PH, Urine 5.5 (5.0-8.0); Protein,Urine Trace (Negative); RBC,Urine 2 /hpf (0-5); Specific Gravity,Urine 1.012 (1.001-1.035); Squamous Epithelial Cell,Urine 1 /hpf (0-4); Urobilinogen,Urine <2.0 mg/dL (<2.0); WBC,Urine 115 /hpf (0-5)
[2021-05-15 07:12] LABS: Glucose,Whole Blood 187 mg/dL (75-99)
--- NOTE | 2021-05-15 07:18 | XR ---
EXAMINATION TYPE: XR chest 1V portable DATE OF EXAM: 05/15/2021 COMPARISON: 05/12/2021 HISTORY: Pneumonia TECHNIQUE: Single frontal view of the chest is obtained. FINDINGS: There is no focal air space opacity, pleural effusion, or pneumothorax seen. The cardiac silhouette size is within normal limits. The osseous structures are intact. IMPRESSION: No acute process.
--- NOTE | 2021-05-15 09:11 | P.PCN ---
Date of Procedure: 05/15/21 Procedure(s) Performed: Preoperative diagnosis: Altered mental status Post operative diagnoses: Altered mental status Procedure= lumbar puncture Anesthesia local infiltration with lidocaine 1% 4 mL. Condition: critical Complication: none. Description of the procedure procedure risk and benefits discussed with the family, consent signed. Patient and the procedure area placed in sitting position , back prepped with chlorhexidine 3 times been local infiltration of the skin and subcutaneous tissue with lidocaine 1% 4 mL for skin and subcu interstitial frustrations at L4 5 levels then 22-gauge Quincke-type needle advanced slowly at L4- 5 interlaminar space there was positive cerebrospinal fluid which was clear, no heme, no paresthesia ,total of 9 ML of clear cerebrospinal fluid collected in 4 different tubes 2-2-1/2 mL in each, then the needle removed and a Band-Aid applied and patient tolerated the procedure well without any complications.
[2021-05-15] MEDS: ENOXAPARIN 40 MG/0.4 ML SYRINGE SQ SCH (09:19)
[2021-05-15] MEDS: INSULIN ASPART (NovoLOG) 100 UNIT/ML VIAL SQ SCH ×4 (09:19→20:38)
[2021-05-15] MEDS: levETIRAcetam IV 1,000 MG in SODIUM CHLORIDE 0.9% 100 ML IVPB SCH (09:32)
[2021-05-15] MEDS: PANTOPRAZOLE 40 MG/10 ML VIAL IVP SCH (09:32)
[2021-05-15] MEDS: METOPROLOL TARTRATE 5 MG/5 ML VIAL IVP SCH ×2 (09:32→15:52)
[2021-05-15] MEDS: ACYCLOVIR SODIUM 700 MG in SODIUM CHLORIDE 0.9% 100 ML IVPB SCH ×2 (09:32→15:52)
[2021-05-15] MEDS: SODIUM CHLORIDE 0.9% 1,000 ML IV SCH ×2 (09:33→18:46)
[2021-05-15 10:11] LABS: Glucose,CSF 111 mg/dL (40-70); Total Protein,CSF 46 mg/dL (12-60)
[2021-05-15 11:50] LABS: Glucose,Whole Blood 150 mg/dL (75-99)
--- NOTE | 2021-05-15 12:09 | P.PN ---
Subjective Progress Note Date: 05/15/21 Principal diagnosis: Acute DKA This is a 65-year-old female with history of diabetes, insulin-requiring, chronic atrial fibrillation, previous CVA/TIA, obstructive sleep apnea syndrome, hypothyroidism, patient was last admitted to [facility] on 04/23 and discharged basically the same day when she presented with lightheadedness and chest pain. Seen by cardiology and underwent a full workup including stress testing and the patient was cleared for discharge basically the same day she was admitted. This time, the patient was brought in by EMS when she had change in mental status and unresponsiveness. Upon EMS arrival, her blood sugar was noted to be extremely elevated. Patient was brought to the ER and she was noted to be in diabetic ketoacidosis with blood sugar of 760, positive ketones, positive anion gap metabolic acidosis, negative CT of the brain, patient was admitted, placed on the DKA protocol, and this consult was initiated. I evaluated the patient while in the ER, however could not obtain any history from the patient, and no family members with the patient. Hence most of the information I have was obtained from the chart Patient was reevaluated today on 05/13/2021, remains confused, very sleepy, however she is arousable, follows very simple instructions but does not seem to be answering any questions. Patient would squeeze hands, and wiggle toes, but she would not answer questions about her name or where she is. Obviously she is quite confused, and her mental status remains extremely poor. Today I recommended a neurological evaluation to address her mental status. Her anion gap has closed, continues to have a low bicarb, but her sodium is correcting nicely, and she is a bit hyperchloremic. Remains on D5 45 she is also on insulin at 3.2 units per hour. Patient did have previous history of CVA, and I'm not certain what is her baseline mental status is like. I am recommending urology to evaluate this patient. Pulmonary-[place], the patient is not in any distress, and she is only on room air with O2 saturation of 98%. CBC is relatively normal electrolytes are normal bicarb is low at 13. Anion gap is 12. Blood sugar is around 200 Reevaluated today on 05/14/2021, patient remains in the ICU, remains confused and encephalopathic. Patient is on room air, O2 saturation is in the 90s, 98%. She remains on IV fluid of 0.9 normal saline at 100 mL per hour. Patient is extremely lethargic, not able to follow any instructions. She was placed on Keppra by neurology, EEG is pending. Ammonia level is pending. MRI report from yesterday was noted. The urologist feels that the patient has metabolic encephalopathy and not certain whether the patient may have had a seizure. At sugar today is 127. A left lites are normal bicarb is 17 improved CBC is relatively normal renal profile is normal ammonia level is 13, normal thyroid profile noted. Reevaluated today on , patient remains in the ICU, remains confused, but at least seems to follow very simple instructions today, slightly better than yesterday. Patient is arousable, squeezes hands, wiggling toes, sticks out tongue, gives thumbs up, but seems to be quite lethargic, and tends to fall asleep easily. Patient had lumbar puncture done today, results of which are pending. Continues to be followed by neurology, and her EEG was negative for seizures. MRI negative for CVA. Patient was on room air with O2 saturations 98%. Again there is minimal improvement in her mentation, but nowhere near baseline. Her DKA has resolved. CBC is normal today electrolytes are normal renal profile is normal, and there is no ongoing metabolic abnormality to explain her mental status change at this point. Blood sugar and protein are normal and the CSF, Gram stain on the spinal fluid is negative Objective - Vital Signs Vital signs: Vital Signs Temp 98.1 F 05/15/21 08:00 Pulse 82 05/15/21 10:00 Resp 28 H 05/15/21 10:00 BP 116/69 05/15/21 10:00 Pulse Ox 96 05/15/21 10:00 Intake & Output 05/14/21 05/15/21 05/15/21 18:59 06:59 18:59 Intake Total 1300 1450 400 Output Total 1400 951 50 Balance -100 499 350 Weight 74.6 kg Intake: IV 1200 1200 400 Sodium Chloride 0.9% 1, 1200 1200 400 000 ml @ 100 mls/hr IV . Q10H [facility] Rx#:[id number] Intake, IV Titration 100 250 Amount Acyclovir Sodium 700 mg 100 In Sodium Chloride 0.9% 100 ml @ 100 mls/hr IVPB Q8HR [facility] Rx#:[id number] cefTRIAXone 1 gm In 50 Sodium Chloride 0.9% 50 ml @ 100 mls/hr IVPB Q24H [facility] Rx#:[id number] levETIRAcetam IV 1,000 mg 100 In Saline 1 100ml.bag @ 400 mls/hr IVPB ONCE ONE Rx#:[id number] levETIRAcetam IV 1,000 mg 100 In Sodium Chloride 0.9% 100 ml @ 400 mls/hr IVPB Q12HR [facility] Rx#:[id number] Output: Urine 1400 951 50 Other: Voiding Method Diaper Diaper Diaper External Catheter External Catheter External Catheter # Voids 1 1 - Exam General Impression: Revealed 65-year-old female, arousable, encephalopathic, bit more cooperative today as noted earlier. HEENT: Camille, EOMI, nonicteric, no neck masses, no JVD, no stridor, dry mucous membranes. Cardiovascular: Normal S1 and S2, no S3 gallop. Chest: Symmetrical chest expansion, no crackles or rhonchi or wheezes. Abdomen: Soft nontender no megaly no rebound no guarding.. Motor: Moves all 4 extremities, no limitation in range of motion and no deformities Neurological: Arousable, opens eyes, follows simple instructions, does not answer any questions. Skin: No rashes. No cyanosis. Psychiatric: Blunted mood and affect, poor mental status. - Labs CBC & Chem 7: 05/15/21 04:44 05/15/21 04:44 Labs: Abnormal Lab Results - Last 24 Hours (Table) 05/14/21 05/14/21 05/14/21 Range/Units 16:25 20:30 22:07 RBC (3.80-5.40) m/uL Lymphocytes # (1.0-4.8) k/uL Glucose (74-99) mg/dL POC Glucose (mg/dL) 237 H 171 H (75-99) mg/dL Calcium (8.4-10.2) mg/dL C-Reactive Protein 9.0 H (<1.0) mg/dL Total Protein (6.3-8.2) g/dL Albumin (3.5-5.0) g/dL Urine Appearance (Clear) Urine Protein (Negative) Urine Glucose (UA) (Negative) Urine Ketones (Negative) Urine Blood (Negative) Ur Leukocyte Esterase (Negative) Urine WBC (0-5) /hpf Urine Bacteria (None) /hpf Urine Mucus (None) /hpf CSF Glucose (40-70) mg/dL HSV I IgG Interpret (NEGATIVE) 05/14/21 05/15/21 05/15/21 Range/Units 22:07 02:19 04:44 RBC 3.77 L (3.80-5.40) m/uL Lymphocytes # 0.9 L (1.0-4.8) k/uL Glucose (74-99) mg/dL POC Glucose (mg/dL) 176 H (75-99) mg/dL Calcium (8.4-10.2) mg/dL C-Reactive Protein (<1.0) mg/dL Total Protein (6.3-8.2) g/dL Albumin (3.5-5.0) g/dL Urine Appearance (Clear) Urine Protein (Negative) Urine Glucose (UA) (Negative) Urine Ketones (Negative) Urine Blood (Negative) Ur Leukocyte Esterase (Negative) Urine WBC (0-5) /hpf Urine Bacteria (None) /hpf Urine Mucus (None) /hpf CSF Glucose (40-70) mg/dL HSV I IgG Interpret POSITIVE A (NEGATIVE) 05/15/21 05/15/21 05/15/21 Range/Units 04:44 06:10 07:10 RBC (3.80-5.40) m/uL Lymphocytes # (1.0-4.8) k/uL Glucose 201 H (74-99) mg/dL POC Glucose (mg/dL) 187 H (75-99) mg/dL Calcium 8.3 L (8.4-10.2) mg/dL C-Reactive Protein (<1.0) mg/dL Total Protein 6.1 L (6.3-8.2) g/dL Albumin 3.1 L (3.5-5.0) g/dL Urine Appearance Cloudy H (Clear) Urine Protein Trace H (Negative) Urine Glucose (UA) 3+ H (Negative) Urine Ketones 1+ H (Negative) Urine Blood Trace H (Negative) Ur Leukocyte Esterase Large H (Negative) Urine WBC 115 H (0-5) /hpf Urine Bacteria Rare H (None) /hpf Urine Mucus Rare H (None) /hpf CSF Glucose (40-70) mg/dL HSV I IgG Interpret (NEGATIVE) 05/15/21 05/15/21 Range/Units 09:00 11:48 RBC (3.80-5.40) m/uL Lymphocytes # (1.0-4.8) k/uL Glucose (74-99) mg/dL POC Glucose (mg/dL) 150 H (75-99) mg/dL Calcium (8.4-10.2) mg/dL C-Reactive Protein (<1.0) mg/dL Total Protein (6.3-8.2) g/dL Albumin (3.5-5.0) g/dL Urine Appearance (Clear) Urine Protein (Negative) Urine Glucose (UA) (Negative) Urine Ketones (Negative) Urine Blood (Negative) Ur Leukocyte Esterase (Negative) Urine WBC (0-5) /hpf Urine Bacteria (None) /hpf Urine Mucus (None) /hpf CSF Glucose 111 H (40-70) mg/dL HSV I IgG Interpret (NEGATIVE) Microbiology - Last 24 Hours (Table) 05/15/21 09:00 CSF Gram Stain - Preliminary Cerebral Spinal Fluid CSF Culture - Preliminary 05/15/21 06:10 Urine Culture - Preliminary Urine,Voided 05/12/21 Unknown Urine Culture - Final Urine,Catheterized Escherichia coli 05/12/21 21:08 Blood Culture - Preliminary Blood No Growth after 48 hours Assessment and Plan Assessment: Impression: Acute diabetic ketoacidosis. Resolved. Acute toxic metabolic encephalopathy secondary to DKA. Acute anion gap metabolic acidosis secondary to DKA. Resolved. History of chronic atrial fibrillation. History of insulin-dependent diabetes. History of GERD. History of obstructive sleep apnea syndrome. History of CVA/TIA. Status post lumbar puncture, initial findings are negative and nondiagnostic including Gram stain, protein and glucose in the spinal fluid Recommendation: Continue present supportive care measures. Continue to monitor in the ICU. Discussed her status with neurology today. Continue to monitor sugars closely. GI and DVT prophylaxis. Prognosis is relatively guarded We'll continue to follow while in the ICU. EEG showed no evidence of seizures Will follow Time with Patient: Less than 30
[2021-05-15 12:24] LABS: Appearance,CSF Clear; CSF Tube Number 4; Nucleated Cells, CSF 0 u/L (0-5); Red Blood Cell,CSF 1 u/L (0-10)
--- NOTE | 2021-05-15 12:29 | P.PN ---
Subjective Progress Note Date: 05/15/21 Principal diagnosis: Acute DKA with Metabolic encephalopathy This is a 59-year-old female admitted with acute DKA, encephalopathy and multiple other medical issues. Maintained on seizure precautions, Keppra as per neurology. MRI noted ,reviewed as per neurology. Ammonia level XIII. Repeat EEG pending. Obtunded, facial grimacing only to noxious stimuli. Blood sugars controlled, bicarb 17. 05/15/2021: Slightly More Alert this morning, sitting up at bedside with 2 person assist. Anesthesia at bedside , preparing for lumbar puncture. EGD reported negative for seizures. Maintaining O2 sats in the high 90s on room air. Afebrile, T-max 100.7, normal WBC. Renal function stable. Sugars ranging from 150s to 200. Objective - Vital Signs Vital signs: Vital Signs Temp 98.1 F 05/15/21 08:00 Pulse 82 05/15/21 10:00 Resp 28 H 05/15/21 10:00 BP 116/69 05/15/21 10:00 Pulse Ox 96 05/15/21 10:00 Intake & Output 05/14/21 05/15/21 05/15/21 18:59 06:59 18:59 Intake Total 1300 1450 400 Output Total 1400 951 50 Balance -100 499 350 Weight 74.6 kg Intake: IV 1200 1200 400 Sodium Chloride 0.9% 1, 1200 1200 400 000 ml @ 100 mls/hr IV . Q10H [facility] Rx#:[id number] Intake, IV Titration 100 250 Amount Acyclovir Sodium 700 mg 100 In Sodium Chloride 0.9% 100 ml @ 100 mls/hr IVPB Q8HR [facility] Rx#:[id number] cefTRIAXone 1 gm In 50 Sodium Chloride 0.9% 50 ml @ 100 mls/hr IVPB Q24H [facility] Rx#:[id number] levETIRAcetam IV 1,000 mg 100 In Saline 1 100ml.bag @ 400 mls/hr IVPB ONCE ONE Rx#:[id number] levETIRAcetam IV 1,000 mg 100 In Sodium Chloride 0.9% 100 ml @ 400 mls/hr IVPB Q12HR [facility] Rx#:[id number] Output: Urine 1400 951 50 Other: Voiding Method Diaper Diaper Diaper External Catheter External Catheter External Catheter # Voids 1 1 - Exam PHYSICAL EXAM: VITAL SIGNS: As above GENERAL: Sitting up and PSA with 2 person assist,mentation mildly improved, atte mpting to follow simple commands. HEENT: Conjunctivae normal. Oral mucosa dry NECK: No JVD. No LNs CARDIOVASCULAR: S1, S2 regular.No murmur RESPIRATION: Breath sounds diminished in the bases. No rhonchi or crackles. ABDOMEN: Soft, nontender . No guarding. no masses palpable. Bowel sounds hear d. LEGS: No edema. no swelling NERVOUS SYSTEM: Limited exam, opens eyes, attempting to follow simple commands Skin: Warm and dry, no rash - Labs CBC & Chem 7: 05/15/21 04:44 05/15/21 04:44 Labs: Abnormal Lab Results - Last 24 Hours (Table) 05/14/21 05/14/21 05/14/21 Range/Units 16:25 20:30 22:07 RBC (3.80-5.40) m/uL Lymphocytes # (1.0-4.8) k/uL Glucose (74-99) mg/dL POC Glucose (mg/dL) 237 H 171 H (75-99) mg/dL Calcium (8.4-10.2) mg/dL C-Reactive Protein 9.0 H (<1.0) mg/dL Total Protein (6.3-8.2) g/dL Albumin (3.5-5.0) g/dL Urine Appearance (Clear) Urine Protein (Negative) Urine Glucose (UA) (Negative) Urine Ketones (Negative) Urine Blood (Negative) Ur Leukocyte Esterase (Negative) Urine WBC (0-5) /hpf Urine Bacteria (None) /hpf Urine Mucus (None) /hpf CSF Glucose (40-70) mg/dL HSV I IgG Interpret (NEGATIVE) 05/14/21 05/15/21 05/15/21 Range/Units 22:07 02:19 04:44 RBC 3.77 L (3.80-5.40) m/uL Lymphocytes # 0.9 L (1.0-4.8) k/uL Glucose (74-99) mg/dL POC Glucose (mg/dL) 176 H (75-99) mg/dL Calcium (8.4-10.2) mg/dL C-Reactive Protein (<1.0) mg/dL Total Protein (6.3-8.2) g/dL Albumin (3.5-5.0) g/dL Urine Appearance (Clear) Urine Protein (Negative) Urine Glucose (UA) (Negative) Urine Ketones (Negative) Urine Blood (Negative) Ur Leukocyte Esterase (Negative) Urine WBC (0-5) /hpf Urine Bacteria (None) /hpf Urine Mucus (None) /hpf CSF Glucose (40-70) mg/dL HSV I IgG Interpret POSITIVE A (NEGATIVE) 05/15/21 05/15/21 05/15/21 Range/Units 04:44 06:10 07:10 RBC (3.80-5.40) m/uL Lymphocytes # (1.0-4.8) k/uL Glucose 201 H (74-99) mg/dL POC Glucose (mg/dL) 187 H (75-99) mg/dL Calcium 8.3 L (8.4-10.2) mg/dL C-Reactive Protein (<1.0) mg/dL Total Protein 6.1 L (6.3-8.2) g/dL Albumin 3.1 L (3.5-5.0) g/dL Urine Appearance Cloudy H (Clear) Urine Protein Trace H (Negative) Urine Glucose (UA) 3+ H (Negative) Urine Ketones 1+ H (Negative) Urine Blood Trace H (Negative) Ur Leukocyte Esterase Large H (Negative) Urine WBC 115 H (0-5) /hpf Urine Bacteria Rare H (None) /hpf Urine Mucus Rare H (None) /hpf CSF Glucose (40-70) mg/dL HSV I IgG Interpret (NEGATIVE) 05/15/21 05/15/21 Range/Units 09:00 11:48 RBC (3.80-5.40) m/uL Lymphocytes # (1.0-4.8) k/uL Glucose (74-99) mg/dL POC Glucose (mg/dL) 150 H (75-99) mg/dL Calcium (8.4-10.2) mg/dL C-Reactive Protein (<1.0) mg/dL Total Protein (6.3-8.2) g/dL Albumin (3.5-5.0) g/dL Urine Appearance (Clear) Urine Protein (Negative) Urine Glucose (UA) (Negative) Urine Ketones (Negative) Urine Blood (Negative) Ur Leukocyte Esterase (Negative) Urine WBC (0-5) /hpf Urine Bacteria (None) /hpf Urine Mucus (None) /hpf CSF Glucose 111 H (40-70) mg/dL HSV I IgG Interpret (NEGATIVE) Microbiology - Last 24 Hours (Table) 05/15/21 09:00 CSF Gram Stain - Preliminary Cerebral Spinal Fluid CSF Culture - Preliminary 05/15/21 06:10 Urine Culture - Preliminary Urine,Voided 05/12/21 Unknown Urine Culture - Final Urine,Catheterized Escherichia coli 05/12/21 21:08 Blood Culture - Preliminary Blood No Growth after 48 hours Assessment and Plan Assessment: Acute DKA, resolved Acute toxic ,metabolic encephalopathy, possibly related to the above, possibly seizure disorder, possible CVA History of CVA 2018,left thalamic Chronic atrial fibrillation, Diabetes mellitus type 1 Gastroesophageal reflux disease Obstructive Sleep apnea syndrome Plan: Continue on current medication regime ,monitoring and symptomatic treatment. Seizure precautions. Lumbar puncture pending. ICU management as per laboratory inspector. Prognosis guarded given multiple complex medical issues. The impression and plan of care has been dictated as directed. : I performed a history and examination of this patient, discussed the same with the dictator. I agree with the dictator's note ,documented as a scribe. Any additional findings or plans will be noted.
--- NOTE | 2021-05-15 13:03 | P.PN ---
Subjective Progress Note Date: 05/15/21 The patient was seen at bedside, and per the patient nurse she has not had any further seizure-like activity. Objective - Vital Signs Vital signs: Vital Signs Temp 98.1 F 05/15/21 08:00 Pulse 82 05/15/21 10:00 Resp 28 H 05/15/21 10:00 BP 116/69 05/15/21 10:00 Pulse Ox 96 05/15/21 10:00 Intake & Output 05/14/21 05/15/21 05/15/21 18:59 06:59 18:59 Intake Total 1300 1450 400 Output Total 1400 951 50 Balance -100 499 350 Weight 74.6 kg Intake: IV 1200 1200 400 Sodium Chloride 0.9% 1, 1200 1200 400 000 ml @ 100 mls/hr IV . Q10H [facility] Rx#:[id number] Intake, IV Titration 100 250 Amount Acyclovir Sodium 700 mg 100 In Sodium Chloride 0.9% 100 ml @ 100 mls/hr IVPB Q8HR [facility] Rx#:[id number] cefTRIAXone 1 gm In 50 Sodium Chloride 0.9% 50 ml @ 100 mls/hr IVPB Q24H [facility] Rx#:[id number] levETIRAcetam IV 1,000 mg 100 In Saline 1 100ml.bag @ 400 mls/hr IVPB ONCE ONE Rx#:[id number] levETIRAcetam IV 1,000 mg 100 In Sodium Chloride 0.9% 100 ml @ 400 mls/hr IVPB Q12HR [facility] Rx#:[id number] Output: Urine 1400 951 50 Other: Voiding Method Diaper Diaper Diaper External Catheter External Catheter External Catheter # Voids 1 1 - Exam GENERAL: The patient is lying and does appear not appear in acute distress. NEUROLOGICAL: Higher mental function: Drowsy but is awakeable to voice. Is oriented to self. She did not respond to year or month or place. Is following few simple command s (showing thumbs up). Cranial nerves: The pupils are round, equal and reactive to light. Pupils are 3-4mm bilaterally. She was tracking me throughout the room. No facial weakness. No dysarthria. Motor: Gait could not be assessed because of her condition. The strength is moving all extremities above gravity but hard to assess indidivual strength because of her cooperation. Cerebellum: Could not be assessed. Sensation:Could not assess because of cooperation. Reflexes (right/left): 2+ throughout. Plantars are mute bilaterally. Work-up (Labs/Imaging etc): * MR the brain is reported as 1 cm nonenhancing focus in that medial left thalamus consistent with an old infarct or encephalomalacia. This area showed ring enhancement on an old exam with more extensive edema. This could be the residual of acute infarct on the old exam or resolved inflammatory process such as an abscess at. There is no evidence of any new abnormality in the brain. Involuting tumor not excluded. * A prolonged 2 1/2 hour EEG on 05/13/2021 it is reported as limited study, abnormal EEG. The triphasic wave mentioned above are not epileptiform in nature. Triphasic waves can be seen in the setting of metabolic encephalopathy. The diffuse data delta range slowing mentioned above is not epileptiform nature. In combination, these findings indicate moderate diffuse cerebral dysfunction as may be seen in toxic metabolic encephalopathy. No seizure recorded. No epileptiform activities was present. * A prolonged 2 1/2 hour EEG on 05/14/2021: It is reported as limited study, abnormal tone have hour inpatient video EEG. No clinical or electrographic seizures were recorded. No epileptiform activity was present. The triphasic waves mentioned above are not epileptiform in nature. Triphasic waves can be seen in the setting of a metabolic encephalopathy. The diffuse theta delta ra nge slowing mentioned above is not epileptiform nature. In combination, these findings indicate moderate diffuse cerebral dysfunction as may be seen in toxic metabolic encephalopathy. No seizures were recorded. No epileptiform activity was present. - Labs CBC & Chem 7: 05/15/21 04:44 05/15/21 04:44 Labs: Abnormal Lab Results - Last 24 Hours (Table) 05/14/21 05/14/21 05/14/21 Range/Units 16:25 20:30 22:07 RBC (3.80-5.40) m/uL Lymphocytes # (1.0-4.8) k/uL Glucose (74-99) mg/dL POC Glucose (mg/dL) 237 H 171 H (75-99) mg/dL Calcium (8.4-10.2) mg/dL C-Reactive Protein 9.0 H (<1.0) mg/dL Total Protein (6.3-8.2) g/dL Albumin (3.5-5.0) g/dL Urine Appearance (Clear) Urine Protein (Negative) Urine Glucose (UA) (Negative) Urine Ketones (Negative) Urine Blood (Negative) Ur Leukocyte Esterase (Negative) Urine WBC (0-5) /hpf Urine Bacteria (None) /hpf Urine Mucus (None) /hpf CSF Glucose (40-70) mg/dL HSV I IgG Interpret (NEGATIVE) 05/14/21 05/15/21 05/15/21 Range/Units 22:07 02:19 04:44 RBC 3.77 L (3.80-5.40) m/uL Lymphocytes # 0.9 L (1.0-4.8) k/uL Glucose (74-99) mg/dL POC Glucose (mg/dL) 176 H (75-99) mg/dL Calcium (8.4-10.2) mg/dL C-Reactive Protein (<1.0) mg/dL Total Protein (6.3-8.2) g/dL Albumin (3.5-5.0) g/dL Urine Appearance (Clear) Urine Protein (Negative) Urine Glucose (UA) (Negative) Urine Ketones (Negative) Urine Blood (Negative) Ur Leukocyte Esterase (Negative) Urine WBC (0-5) /hpf Urine Bacteria (None) /hpf Urine Mucus (None) /hpf CSF Glucose (40-70) mg/dL HSV I IgG Interpret POSITIVE A (NEGATIVE) 05/15/21 05/15/21 05/15/21 Range/Units 04:44 06:10 07:10 RBC (3.80-5.40) m/uL Lymphocytes # (1.0-4.8) k/uL Glucose 201 H (74-99) mg/dL POC Glucose (mg/dL) 187 H (75-99) mg/dL Calcium 8.3 L (8.4-10.2) mg/dL C-Reactive Protein (<1.0) mg/dL Total Protein 6.1 L (6.3-8.2) g/dL Albumin 3.1 L (3.5-5.0) g/dL Urine Appearance Cloudy H (Clear) Urine Protein Trace H (Negative) Urine Glucose (UA) 3+ H (Negative) Urine Ketones 1+ H (Negative) Urine Blood Trace H (Negative) Ur Leukocyte Esterase Large H (Negative) Urine WBC 115 H (0-5) /hpf Urine Bacteria Rare H (None) /hpf Urine Mucus Rare H (None) /hpf CSF Glucose (40-70) mg/dL HSV I IgG Interpret (NEGATIVE) 05/15/21 05/15/21 Range/Units 09:00 11:48 RBC (3.80-5.40) m/uL Lymphocytes # (1.0-4.8) k/uL Glucose (74-99) mg/dL POC Glucose (mg/dL) 150 H (75-99) mg/dL Calcium (8.4-10.2) mg/dL C-Reactive Protein (<1.0) mg/dL Total Protein (6.3-8.2) g/dL Albumin (3.5-5.0) g/dL Urine Appearance (Clear) Urine Protein (Negative) Urine Glucose (UA) (Negative) Urine Ketones (Negative) Urine Blood (Negative) Ur Leukocyte Esterase (Negative) Urine WBC (0-5) /hpf Urine Bacteria (None) /hpf Urine Mucus (None) /hpf CSF Glucose 111 H (40-70) mg/dL HSV I IgG Interpret (NEGATIVE) Microbiology - Last 24 Hours (Table) 05/15/21 09:00 CSF Gram Stain - Preliminary Cerebral Spinal Fluid CSF Culture - Preliminary 05/15/21 06:10 Urine Culture - Preliminary Urine,Voided 05/12/21 Unknown Urine Culture - Final Urine,Catheterized Escherichia coli 05/12/21 21:08 Blood Culture - Preliminary Blood No Growth after 48 hours Assessment and Plan Assessment: * Altered mental status: Leonela metabolic encephalopathy from DKA (possibly drastic drop in correction of her sugar lead to her encephalopathy). Initially thought seizure because of low gaze deviation bilaterally but two seperate prolonged EEG did not support seizure.---mentation is improving * Diabetic ketoacidosis---resolved * History of old left thalamic stroke in 2018 (please refer to HPI for further details since ?abscess on read but it was concluded it was subacute stroke). * atrial fibrillation on eliquis * Type 1 diabetes * Sleep apnea Plan: * CSF study: It's clear, colorless, 0 nucleated cells, glucose upon 111 and the total protein is 46 which seems normal. No meningoencephalitis from CSF study. * Patient is on Keppra 1000mg every 12 hours for seizure prophylaxis. Will start tapering it down since two EEG did not support seizure. Will go down to 500mg q12 hours. * Infection disease is consulted. * Patient is on Lipitor 10 mg daily at bedtime and Eliquis 5 mg 1 tablet twice a day for secondary stroke prophylaxis. * On Haldol 1 mg every 6 hours as needed for agitation * Will defer the rest of medical managent to the primary and ICU team. The plan is discussed with the patient's ICU attending and her nurse. UPDATE: I spoke with the patient's daughter was at bedside and notified her of all the workup and the neurological impression. Per the daughter, the patient is alert, oriented X3 and is independent. Does not have focal neurological deficits. But does not controls her sugars at home. Alejandro Ramos MD Neuro-Hospitalist Time with Patient: Greater than 30
--- NOTE | 2021-05-15 16:44 | PN ---
PROGRESS NOTE DATE OF SERVICE: 05/15/2021 REASON FOR FOLLOWUP: Fever, possible UTI. INTERVAL HISTORY: Patient overall fever pattern has improved this morning. The patient is afebrile. The patient is slightly awake today and also responded to her name, however, did not provide any history. No vomiting, diarrhea or other changes reported by the nursing staff. PHYSICAL EXAMINATION: Blood pressure 107/55 with a pulse of 92, temp 98, she is 98% on 2 L nasal cannula. General description is an elderly female lying in bed in no distress. Respiratory system: Unlabored breathing, decreased breath sounds at bases. No wheeze. Heart: S1, S2. Regular rate and rhythm. LABS: Hemoglobin 11.1, white count of 5.8, BUN of 19, creatinine 0.53. Repeat urine is positive with large leukocyte esterase and 158 WBCs. The patient's CSF examination was negative. Glucose 111, protein 46, alkaline was 0. DIAGNOSTIC IMPRESSION AND PLAN: Patient with mental status changes admitted to the hospital with concerning for the possible urinary tract infection. Lumbar puncture is negative that will make it less likely to be cellulitis. Patient to continue the Rocephin and monitor clinical course closely. MMODL / IJN: [id number] /
[2021-05-15 16:51] LABS: Glucose,Whole Blood 146 mg/dL (75-99)
[2021-05-15] MEDS: levETIRAcetam IV 500 MG in SODIUM CHLORIDE 0.9% 100 ML IVPB SCH (20:14)
[2021-05-15] MEDS: ATORVASTATIN 10 MG TAB PO SCH (20:33)
[2021-05-15] MEDS: INSULIN DETEMIR (LEVEMIR) 100 UNIT/ML SYR SQ SCH (20:38)
[2021-05-15 20:39] LABS: Glucose,Whole Blood 216 mg/dL (75-99)
[2021-05-16] MEDS: METOPROLOL TARTRATE 5 MG/5 ML VIAL IVP SCH ×3 (00:17→15:20)
[2021-05-16] MEDS: ACYCLOVIR SODIUM 700 MG in SODIUM CHLORIDE 0.9% 100 ML IVPB SCH ×4 (00:25→23:53)
[2021-05-16 02:28] LABS: Glucose,Whole Blood 166 mg/dL (75-99)
[2021-05-16] MEDS: SODIUM CHLORIDE 0.9% 1,000 ML IV SCH ×3 (04:00→18:40)
[2021-05-16 06:05] LABS: Basophils % (A) 0 %; Eosinophils # (A) 0.1 k/uL (0-0.7); Eosinophils % (A) 1 %; HCT 33.4 % (34.0-46.0); HGB 11.7 gm/dL (11.4-16.0); Lymphocytes # (A) 0.7 k/uL (1.0-4.8); Lymphocytes % (A) 10 %; MCH 31.5 pg (25.0-35.0); MCHC 35.1 g/dL (31.0-37.0); MCV 89.8 fL (80.0-100.0); Mean Platelet Volume 7.5; Monocytes # (A) 0.4 k/uL (0-1.0); Monocytes % (A) 6 %; Neutrophils # (A) 5.3 k/uL (1.3-7.7); Neutrophils % (A) 81 %; Platelet Count 203 k/uL (150-450); RBC 3.72 m/uL (3.80-5.40); RDW 12.6 % (11.5-15.5); WBC 6.5 k/uL (3.8-10.6)
[2021-05-16 06:16] LABS: ALT 17 U/L (4-34); AST 29 U/L (14-36); African American GFR (CKD) >90 (>60 ml/min/1.73 sqM); Albumin 3.3 g/dL (3.5-5.0); Alkaline Phosphatase 89 U/L (38-126); Anion Gap 9 mmol/L; Blood Urea Nitrogen 5 mg/dL (7-17); Calcium 8.7 mg/dL (8.4-10.2); Carbon Dioxide 25 mmol/L (22-30); Chloride 102 mmol/L (98-107); Glucose 167 mg/dL (74-99); Non-African American GFR(CKD) >90 (>60 ml/min/1.73 sqM); Sodium 136 mmol/L (137-145); Total Bilirubin 0.7 mg/dL (0.2-1.3); Total Protein 6.3 g/dL (6.3-8.2)
[2021-05-16] MEDS: POTASSIUM CHLORIDE 10 MEQ in WATER FOR INJECTION 1 100ML.BAG IVPB SCH ×4 (06:55→13:39)
[2021-05-16 08:16] LABS: Glucose,Whole Blood 155 mg/dL (75-99)
[2021-05-16] MEDS: ENOXAPARIN 40 MG/0.4 ML SYRINGE SQ SCH (08:20)
[2021-05-16] MEDS: PANTOPRAZOLE 40 MG/10 ML VIAL IVP SCH (08:21)
[2021-05-16] MEDS: INSULIN ASPART (NovoLOG) 100 UNIT/ML VIAL SQ SCH ×4 (08:21→20:57)
[2021-05-16] MEDS: levETIRAcetam IV 500 MG in SODIUM CHLORIDE 0.9% 100 ML IVPB SCH (08:24)
--- NOTE | 2021-05-16 09:44 | P.PN ---
Subjective Progress Note Date: 05/16/21 The patient seen at bedside and she is doing slightly better today compared to yesterday per the nurse. No seizure-like activity is witnessed. Objective - Vital Signs Vital signs: Vital Signs Temp 98.3 F 05/16/21 04:00 Pulse 99 05/16/21 06:00 Resp 17 05/16/21 06:00 BP 148/75 05/16/21 06:00 Pulse Ox 96 05/16/21 06:00 Intake & Output 05/15/21 05/16/21 05/16/21 18:59 06:59 18:59 Intake Total 1200 1450 Output Total 50 1250 Balance 1150 200 Weight 77.4 kg Intake: IV 1200 1200 Sodium Chloride 0.9% 1, 1200 1200 000 ml @ 100 mls/hr IV . Q10H [facility] Rx#:[id number] Intake, IV Titration 250 Amount Acyclovir Sodium 700 mg 100 In Sodium Chloride 0.9% 100 ml @ 100 mls/hr IVPB Q8HR [facility] Rx#:[id number] cefTRIAXone 1 gm In 50 Sodium Chloride 0.9% 50 ml @ 100 mls/hr IVPB Q24H [facility] Rx#:[id number] levETIRAcetam IV 1,000 mg 100 In Sodium Chloride 0.9% 100 ml @ 400 mls/hr IVPB Q12HR [facility] Rx#:[id number] Output: Urine 50 1250 Other: Voiding Method Diaper Diaper External Catheter External Catheter # Voids 1 - Exam GENERAL: The patient is lying and does appear not appear in acute distress. NEUROLOGICAL: Higher mental function: Drowsy but is awakeable to voice. Is oriented to self. She stated she is in the hospital. With option she correctly chose the right name of the hospital. Intetermittently chose the right year and month. She is slow to respond. She is following simple commands. Cranial nerves: The pupils are round, equal and reactive to light. Pupils are 3-4mm bilaterally. EOM intact and no nystagmus. No facial weakness. No dysarthria. Motor: Gait could not be assessed because of her condition. The strength is moving all extremities above gravity but hard to assess indidivual strength because of her cooperation. Cerebellum: Could not be assessed. Sensation:Could not assess because of cooperation. Reflexes (right/left): 2+ throughout. Plantars are mute bilaterally. Work-up (Labs/Imaging etc): * MR the brain is reported as 1 cm nonenhancing focus in that medial left thalamus consistent with an old infarct or encephalomalacia. This area showed ring enhancement on an old exam with more extensive edema. This could be the residual of acute infarct on the old exam or resolved inflammatory process such as an abscess at. There is no evidence of any new abnormality in the brain. Involuting tumor not excluded. * A prolonged 2 1/2 hour EEG on 05/13/2021 it is reported as limited study, abnormal EEG. The triphasic wave mentioned above are not epileptiform in nature. Triphasic waves can be seen in the setting of metabolic encephalopathy. The diffuse data delta range slowing mentioned above is not epileptiform nature. In combination, these findings indicate moderate diffuse cerebral dysfunction as may be seen in toxic metabolic encephalopathy. No seizure recorded. No epileptiform activities was present. * A prolonged 2 1/2 hour EEG on 05/14/2021: It is reported as limited study, abnormal tone have hour inpatient video EEG. No clinical or electrographic seizures were recorded. No epileptiform activity was present. The triphasic waves mentioned above are not epileptiform in nature. Triphasic waves can be seen in the setting of a metabolic encephalopathy. The diffuse theta delta range slowing mentioned above is not epileptiform nature. In combination, these findings indicate moderate diffuse cerebral dysfunction as may be seen in toxic metabolic encephalopathy. No seizures were recorded. No epileptiform activity was present. * CSF study: It's clear, colorless, 0 nucleated cells, glucose upon 111 and the total protein is 46 which seems normal. No meningoencephalitis from CSF study. * Vitamin B12 is 869, folate is 13.3 which is within normal limits. * TSH is 5.610 which is slightly elevated but the free T4 is 1.91 which is considered normal. - Labs CBC & Chem 7: 05/16/21 05:33 05/16/21 05:33 Labs: Abnormal Lab Results - Last 24 Hours (Table) 05/15/21 05/15/21 05/15/21 Range/Units 09:00 11:48 16:49 RBC (3.80-5.40) m/uL Hct (34.0-46.0) % Lymphocytes # (1.0-4.8) k/uL Sodium (137-145) mmol/L Potassium (3.5-5.1) mmol/L BUN (7-17) mg/dL Creatinine (0.52-1.04) mg/dL Glucose (74-99) mg/dL POC Glucose (mg/dL) 150 H 146 H (75-99) mg/dL Albumin (3.5-5.0) g/dL CSF Glucose 111 H (40-70) mg/dL 05/15/21 05/16/21 05/16/21 Range/Units 20:37 02:25 05:33 RBC 3.72 L (3.80-5.40) m/uL Hct 33.4 L (34.0-46.0) % Lymphocytes # 0.7 L (1.0-4.8) k/uL Sodium (137-145) mmol/L Potassium (3.5-5.1) mmol/L BUN (7-17) mg/dL Creatinine (0.52-1.04) mg/dL Glucose (74-99) mg/dL POC Glucose (mg/dL) 216 H 166 H (75-99) mg/dL Albumin (3.5-5.0) g/dL CSF Glucose (40-70) mg/dL 05/16/21 Range/Units 05:33 RBC (3.80-5.40) m/uL Hct (34.0-46.0) % Lymphocytes # (1.0-4.8) k/uL Sodium 136 L (137-145) mmol/L Potassium 3.0 L (3.5-5.1) mmol/L BUN 5 L (7-17) mg/dL Creatinine 0.46 L (0.52-1.04) mg/dL Glucose 167 H (74-99) mg/dL POC Glucose (mg/dL) (75-99) mg/dL Albumin 3.3 L (3.5-5.0) g/dL CSF Glucose (40-70) mg/dL Microbiology - Last 24 Hours (Table) 05/14/21 22:07 Blood Culture - Preliminary Blood No Growth after 24 hours 05/12/21 21:08 Blood Culture - Preliminary Blood No Growth after 72 hours 05/15/21 09:00 CSF Gram Stain - Preliminary Cerebral Spinal Fluid CSF Culture - Preliminary 05/15/21 06:10 Urine Culture - Preliminary Urine,Voided 05/12/21 Unknown Urine Culture - Final Urine,Catheterized Escherichia coli Assessment and Plan Assessment: * Altered mental status: Leonela metabolic encephalopathy from DKA (possibly drastic drop in correction of her sugar lead to her encephalopathy). Per ID possibly UTI. Initially I thought seizure because of fixed low gaze deviation but on two separate prolonged EEG did not support seizure and CSF study is normal---mentation is improving * Possible UTI. * Diabetic ketoacidosis---resolved * History of old left thalamic stroke in 2018 (please refer to HPI for further details since ?abscess on read but it was concluded it was subacute stroke). * atrial fibrillation on eliquis * Type 1 diabetes * Sleep apnea Plan: * Patient is on Keppra 500mg every 12 hours for seizure prophylaxis. Will taper down to 250mg 1 tab bid since two EEG did not support seizure and eventually remove the medication. * Infection disease is on board * Patient is on Lipitor 10 mg daily at bedtime and Eliquis 5 mg 1 tablet twice a day for secondary stroke prophylaxis. * On Haldol 1 mg every 6 hours as needed for agitation * Will defer the rest of medical managent to the primary and ICU team. Per the daughter, the patient does not have history of seizures. Also baseline is independent but does not control his sugar. The plan is discussed with the patient's nurse and ICU attending. Alejandro Ramos MD Neuro-Hospitalist Time with Patient: Less than 30
[2021-05-16 11:30] LABS: Glucose,Whole Blood 112 mg/dL (75-99)
--- NOTE | 2021-05-16 13:03 | P.PN ---
Subjective Progress Note Date: 05/16/21 Principal diagnosis: Acute DKA This is a 65-year-old female with history of diabetes, insulin-requiring, chronic atrial fibrillation, previous CVA/TIA, obstructive sleep apnea syndrome, hypothyroidism, patient was last admitted to [facility] on 04/23 and discharged basically the same day when she presented with lightheadedness and chest pain. Seen by cardiology and underwent a full workup including stress testing and the patient was cleared for discharge basically the same day she was admitted. This time, the patient was brought in by EMS when she had change in mental status and unresponsiveness. Upon EMS arrival, her blood sugar was noted to be extremely elevated. Patient was brought to the ER and she was noted to be in diabetic ketoacidosis with blood sugar of 760, positive ketones, positive anion gap metabolic acidosis, negative CT of the brain, patient was admitted, placed on the DKA protocol, and this consult was initiated. I evaluated the patient while in the ER, however could not obtain any history from the patient, and no family members with the patient. Hence most of the information I have was obtained from the chart Patient was reevaluated today on 05/13/2021, remains confused, very sleepy, however she is arousable, follows very simple instructions but does not seem to be answering any questions. Patient would squeeze hands, and wiggle toes, but she would not answer questions about her name or where she is. Obviously she is quite confused, and her mental status remains extremely poor. Today I recommended a neurological evaluation to address her mental status. Her anion gap has closed, continues to have a low bicarb, but her sodium is correcting nicely, and she is a bit hyperchloremic. Remains on D5 45 she is also on insulin at 3.2 units per hour. Patient did have previous history of CVA, and I'm not certain what is her baseline mental status is like. I am recommending urology to evaluate this patient. Pulmonary-[place], the patient is not in any distress, and she is only on room air with O2 saturation of 98%. CBC is relatively normal electrolytes are normal bicarb is low at 13. Anion gap is 12. Blood sugar is around 200 Reevaluated today on 05/14/2021, patient remains in the ICU, remains confused and encephalopathic. Patient is on room air, O2 saturation is in the 90s, 98%. She remains on IV fluid of 0.9 normal saline at 100 mL per hour. Patient is extremely lethargic, not able to follow any instructions. She was placed on Keppra by neurology, EEG is pending. Ammonia level is pending. MRI report from yesterday was noted. The urologist feels that the patient has metabolic encephalopathy and not certain whether the patient may have had a seizure. At sugar today is 127. A left lites are normal bicarb is 17 improved CBC is relatively normal renal profile is normal ammonia level is 13, normal thyroid profile noted. Reevaluated today on , patient remains in the ICU, remains confused, but at least seems to follow very simple instructions today, slightly better than yesterday. Patient is arousable, squeezes hands, wiggling toes, sticks out tongue, gives thumbs up, but seems to be quite lethargic, and tends to fall asleep easily. Patient had lumbar puncture done today, results of which are pending. Continues to be followed by neurology, and her EEG was negative for seizures. MRI negative for CVA. Patient was on room air with O2 saturations 98%. Again there is minimal improvement in her mentation, but nowhere near baseline. Her DKA has resolved. CBC is normal today electrolytes are normal renal profile is normal, and there is no ongoing metabolic abnormality to explain her mental status change at this point. Blood sugar and protein are normal and the CSF, Gram stain on the spinal fluid is negative Reevaluated today on 05/16/2021, patient continues to show slight clinical improvement neurologically, she is more appropriate today. She knows where she is at least she could tell me that she is at [facility]. Patient is following more simple instructions. Slight improvement in her lethargy over the last 24 hours, but she is not back to baseline. Her labs including CBC and basic metabolic profile renal profile are basically normal except for low potassium, being corrected as per protocol. Objective - Vital Signs Vital signs: Vital Signs Temp 98.2 F 05/16/21 12:00 Pulse 103 H 05/16/21 12:00 Resp 22 05/16/21 12:00 BP 134/73 05/16/21 12:00 Pulse Ox 98 05/16/21 12:00 Intake & Output 05/15/21 05/16/21 05/16/21 18:59 06:59 18:59 Intake Total 1200 1450 1000 Output Total 50 1250 500 Balance 1150 200 500 Weight 77.4 kg 77.4 kg Intake: IV 1200 1200 600 Sodium Chloride 0.9% 1, 1200 1200 600 000 ml @ 100 mls/hr IV . Q10H [facility] Rx#:[id number] Intake, IV Titration 250 400 Amount Acyclovir Sodium 700 mg 100 100 In Sodium Chloride 0.9% 100 ml @ 100 mls/hr IVPB Q8HR [facility] Rx#:[id number] Potassium Chloride 10 meq 100 In Water For Injection 1 100ml.bag @ 100 mls/hr IVPB Q1HR [facility] Rx#: [id number] Potassium Chloride 10 meq 100 In Water For Injection 1 100ml.bag @ 100 mls/hr IVPB Q1HR [facility] Rx#: [id number] cefTRIAXone 1 gm In 50 Sodium Chloride 0.9% 50 ml @ 100 mls/hr IVPB Q24H [facility] Rx#:[id number] levETIRAcetam IV 1,000 mg 100 100 In Sodium Chloride 0.9% 100 ml @ 400 mls/hr IVPB Q12HR [facility] Rx#:[id number] Output: Urine 50 1250 500 Other: Voiding Method Diaper Diaper Diaper External Catheter External Catheter External Catheter # Voids 1 - Exam General Impression: Revealed 65-year-old female, arousable, encephalopathic, steady neurological improvement noted again today. HEENT: Camille, EOMI, nonicteric, no neck masses, no JVD, no stridor, dry mucous membranes. Cardiovascular: Normal S1 and S2, no S3 gallop. Chest: Symmetrical chest expansion, no crackles or rhonchi or wheezes. Abdomen: Soft nontender no megaly no rebound no guarding.. Motor: Moves all 4 extremities, no limitation in range of motion and no deformities Neurological: opens eyes, follows simple instructions, knew or she was. Skin: No rashes. No cyanosis. Psychiatric: Blunted mood and affect, poor mental status. - Labs CBC & Chem 7: 05/16/21 05:33 05/16/21 05:33 Labs: Abnormal Lab Results - Last 24 Hours (Table) 05/15/21 05/15/21 05/16/21 Range/Units 16:49 20:37 02:25 RBC (3.80-5.40) m/uL Hct (34.0-46.0) % Lymphocytes # (1.0-4.8) k/uL Sodium (137-145) mmol/L Potassium (3.5-5.1) mmol/L BUN (7-17) mg/dL Creatinine (0.52-1.04) mg/dL Glucose (74-99) mg/dL POC Glucose (mg/dL) 146 H 216 H 166 H (75-99) mg/dL Albumin (3.5-5.0) g/dL 05/16/21 05/16/21 05/16/21 Range/Units 05:33 05:33 08:14 RBC 3.72 L (3.80-5.40) m/uL Hct 33.4 L (34.0-46.0) % Lymphocytes # 0.7 L (1.0-4.8) k/uL Sodium 136 L (137-145) mmol/L Potassium 3.0 L (3.5-5.1) mmol/L BUN 5 L (7-17) mg/dL Creatinine 0.46 L (0.52-1.04) mg/dL Glucose 167 H (74-99) mg/dL POC Glucose (mg/dL) 155 H (75-99) mg/dL Albumin 3.3 L (3.5-5.0) g/dL 05/16/21 Range/Units 11:28 RBC (3.80-5.40) m/uL Hct (34.0-46.0) % Lymphocytes # (1.0-4.8) k/uL Sodium (137-145) mmol/L Potassium (3.5-5.1) mmol/L BUN (7-17) mg/dL Creatinine (0.52-1.04) mg/dL Glucose (74-99) mg/dL POC Glucose (mg/dL) 112 H (75-99) mg/dL Albumin (3.5-5.0) g/dL Microbiology - Last 24 Hours (Table) 05/15/21 06:10 Urine Culture - Final Urine,Voided 05/15/21 09:00 CSF Gram Stain - Preliminary Cerebral Spinal Fluid CSF Culture - Preliminary 05/14/21 22:07 Blood Culture - Preliminary Blood No Growth after 24 hours 05/12/21 21:08 Blood Culture - Preliminary Blood No Growth after 72 hours 05/12/21 Unknown Urine Culture - Final Urine,Catheterized Escherichia coli Assessment and Plan Assessment: Impression: Acute diabetic ketoacidosis. Resolved. Acute toxic metabolic encephalopathy secondary to DKA. Acute anion gap metabolic acidosis secondary to DKA. Resolved. History of chronic atrial fibrillation. History of insulin-dependent diabetes. History of GERD. History of obstructive sleep apnea syndrome. History of CVA/TIA. Status post lumbar puncture, initial findings are negative and nondiagnostic including Gram stain, protein and glucose in the spinal fluid Recommendation: Continue present supportive care measures. Will transfer out of the ICU to a regular medical floor today. Discussed her status with neurology again today. Seems to be pleased with the gradual but slow improvement of mental status. GI and DVT prophylaxis. Prognosis is relatively guarded Will follow Time with Patient: Less than 30
[2021-05-16 16:40] LABS: Glucose,Whole Blood 155 mg/dL (75-99)
[2021-05-16 20:53] LABS: Glucose,Whole Blood 188 mg/dL (75-99)
[2021-05-16] MEDS: ATORVASTATIN 10 MG TAB PO SCH (20:57)
[2021-05-16] MEDS: levETIRAcetam IV 250 MG in SODIUM CHLORIDE 0.9% 100 ML IVPB SCH (20:57)
[2021-05-16] MEDS: INSULIN DETEMIR (LEVEMIR) 100 UNIT/ML SYR SQ SCH (20:58)
--- NOTE | 2021-05-17 01:43 | PN ---
PROGRESS NOTE DATE OF SERVICE: 05/16/2021. REASON FOR FOLLOWUP: Fever, question of UTI. INTERVAL HISTORY: Patient is afebrile. The patient remains to be lethargic and is unable to afford any history. No vomiting or diarrhea. ( ) The patient will be transferred out of the ICU. EXAMINATION: Blood pressure 130/79, pulse of 73, temperature 98.3, he is 96%. Description: Patient is an elderly female lying in bed, in no distress. RESPIRATORY SYSTEM: Unlabored breathing and is clear to auscultation anteriorly. HEART: S1, S2. Regular rate and rhythm. ABDOMEN: Soft, no tenderness. LABORATORY DATA: Hemoglobin 11.1, white count 6.5, BUN of 5, creatinine 0.46. Repeat urine is negative. HSV DNA by PCR is currently pending. DIAGNOSTIC IMPRESSION AND PLAN: 1. Patient with mental status changes concerning for encephalitis. However, the patient this examination is essentially normal. ( ) DNA by PCR is pending. If negative, we will recommend discontinuation of this. 2. Fever, possible UTI, responding to the Rocephin, to continue. Will monitor clinical course closely. MMODL / IJN: [id number] /
[2021-05-17 02:11] LABS: Glucose,Whole Blood 114 mg/dL (75-99)
[2021-05-17 07:24] LABS: Glucose,Whole Blood 128 mg/dL (75-99)
[2021-05-17] MEDS: INSULIN ASPART (NovoLOG) 100 UNIT/ML VIAL SQ SCH ×4 (07:26→22:14)
[2021-05-17] MEDS: METOPROLOL TARTRATE 25 MG TAB PO SCH ×2 (08:30→22:14)
[2021-05-17] MEDS: ACYCLOVIR SODIUM 700 MG in SODIUM CHLORIDE 0.9% 100 ML IVPB SCH ×2 (08:30→16:33)
[2021-05-17] MEDS: ENOXAPARIN 40 MG/0.4 ML SYRINGE SQ SCH (08:30)
[2021-05-17] MEDS: PANTOPRAZOLE 40 MG/10 ML VIAL IVP SCH (08:30)
--- NOTE | 2021-05-17 09:53 | P.PN ---
Subjective Progress Note Date: 05/16/21 Principal diagnosis: Acute diabetic ketoacidosis Acute toxic metabolic encephalopathy 65-year-old female with history of diabetes, insulin-requiring, chronic atrial fibrillation, previous CVA/TIA, obstructive sleep apnea syndrome, hypothyroidism, patient was last admitted to [facility] on 04/23 and discharged basically the same day when she presented with lightheadedness and chest pain. Seen by cardiology and underwent a full workup including stress testing and the patient was cleared for discharge basically the same day she was admitted. This time, the patient was brought in by EMS when she had change in mental status and unresponsiveness. Upon EMS arrival, her blood sugar was noted to be extremely elevated. Patient was brought to the ER and she was noted to be in diabetic ketoacidosis with blood sugar of 760, positive ketones, positive anion gap metabolic acidosis, negative CT of the brain, patient was admitted, placed on the DKA protocol 05/16/2021 patient is seen and evaluated at bedside in ICU; patient is sound asleep but is arousable; per nursing staff patient continues to show slight clinical improvement neurologically, she is more appropriate today. Patient is oriented to location and is able to follow simple commands. Slight improvement in her lethargy over the last 24 hours, but she is not back to baseline. Lab review shows CBC and basic metabolic profile renal profile are basically normal except for low potassium at 3.0, being corrected as per protocol. Plan is to continue with current management with possibility of transferring patient to medical floor if remains stable; neurology on board and recommending to continue with Keppra 500 mg every 12 hours for seizure prophylaxis with plans to taper down to 250 mg twice a day since EEG has been unremarkable Patient is on Lipitor 10 mg daily at bedtime and Eliquis 5 mg 1 tablet twice a day for secondary stroke prophylaxis Objective - Vital Signs Vital signs: Vital Signs Temp 98.2 F 05/16/21 12:00 Pulse 89 05/16/21 15:00 Resp 26 H 05/16/21 15:00 BP 124/81 05/16/21 15:00 Pulse Ox 93 L 05/16/21 15:00 Intake & Output 05/15/21 05/16/21 05/16/21 18:59 06:59 18:59 Intake Total 1200 1450 1100 Output Total 50 1250 600 Balance 1150 200 500 Weight 77.4 kg 77.4 kg Intake: IV 1200 1200 700 Sodium Chloride 0.9% 1, 1200 1200 700 000 ml @ 100 mls/hr IV . Q10H [facility] Rx#:[id number] Intake, IV Titration 250 400 Amount Acyclovir Sodium 700 mg 100 100 In Sodium Chloride 0.9% 100 ml @ 100 mls/hr IVPB Q8HR [facility] Rx#:[id number] Potassium Chloride 10 meq 100 In Water For Injection 1 100ml.bag @ 100 mls/hr IVPB Q1HR [facility] Rx#: [id number] Potassium Chloride 10 meq 100 In Water For Injection 1 100ml.bag @ 100 mls/hr IVPB Q1HR [facility] Rx#: [id number] cefTRIAXone 1 gm In 50 Sodium Chloride 0.9% 50 ml @ 100 mls/hr IVPB Q24H [facility] Rx#:[id number] levETIRAcetam IV 1,000 mg 100 100 In Sodium Chloride 0.9% 100 ml @ 400 mls/hr IVPB Q12HR [facility] Rx#:[id number] Output: Urine 50 1250 600 Other: Voiding Method Diaper Diaper Diaper External Catheter External Catheter External Catheter # Voids 1 - Exam General Impression: Revealed 65-year-old female, arousable, encephalopathic, steady neurological improvement noted again today. HEENT: Camille, EOMI, nonicteric, no neck masses, no JVD, no stridor, dry mucous membranes. Cardiovascular: Normal S1 and S2, no S3 gallop. Chest: Symmetrical chest expansion, no crackles or rhonchi or wheezes. Abdomen: Soft nontender no megaly no rebound no guarding.. Motor: Moves all 4 extremities, no limitation in range of motion and no deformities Neurological: opens eyes, follows simple instructions, knew or she was. Skin: No rashes. No cyanosis. Psychiatric: Blunted mood and affect, poor mental status. - Labs CBC & Chem 7: 05/16/21 05:33 05/16/21 05:33 Labs: Abnormal Lab Results - Last 24 Hours (Table) 05/15/21 05/16/21 05/16/21 Range/Units 20:37 02:25 05:33 RBC 3.72 L (3.80-5.40) m/uL Hct 33.4 L (34.0-46.0) % Lymphocytes # 0.7 L (1.0-4.8) k/uL Sodium (137-145) mmol/L Potassium (3.5-5.1) mmol/L BUN (7-17) mg/dL Creatinine (0.52-1.04) mg/dL Glucose (74-99) mg/dL POC Glucose (mg/dL) 216 H 166 H (75-99) mg/dL Albumin (3.5-5.0) g/dL 05/16/21 05/16/21 05/16/21 Range/Units 05:33 08:14 11:28 RBC (3.80-5.40) m/uL Hct (34.0-46.0) % Lymphocytes # (1.0-4.8) k/uL Sodium 136 L (137-145) mmol/L Potassium 3.0 L (3.5-5.1) mmol/L BUN 5 L (7-17) mg/dL Creatinine 0.46 L (0.52-1.04) mg/dL Glucose 167 H (74-99) mg/dL POC Glucose (mg/dL) 155 H 112 H (75-99) mg/dL Albumin 3.3 L (3.5-5.0) g/dL 05/16/21 Range/Units 16:39 RBC (3.80-5.40) m/uL Hct (34.0-46.0) % Lymphocytes # (1.0-4.8) k/uL Sodium (137-145) mmol/L Potassium (3.5-5.1) mmol/L BUN (7-17) mg/dL Creatinine (0.52-1.04) mg/dL Glucose (74-99) mg/dL POC Glucose (mg/dL) 155 H (75-99) mg/dL Albumin (3.5-5.0) g/dL Microbiology - Last 24 Hours (Table) 05/15/21 06:10 Urine Culture - Final Urine,Voided 05/15/21 09:00 CSF Gram Stain - Preliminary Cerebral Spinal Fluid CSF Culture - Preliminary 05/14/21 22:07 Blood Culture - Preliminary Blood No Growth after 24 hours 05/12/21 21:08 Blood Culture - Preliminary Blood No Growth after 72 hours Assessment and Plan Assessment: 1. Acute diabetic ketoacidosis. Resolved. Continue with current management at this time; patient is to be transferred out of ICU later today 2. Acute toxic metabolic encephalopathy secondary to DKA. Neurology is following and recommending to continue with Keppra at this time with plans to taper since EEG is negative for seizures 3. Acute anion gap metabolic acidosis secondary to DKA. Resolved. 4. History of chronic atrial fibrillation. 5. History of insulin-dependent diabetes. 6. History of GERD. 7. History of obstructive sleep apnea syndrome. 8. History of CVA/TIA; remains on Lipitor and systemic anticoagulation. 9. Status post lumbar puncture, initial findings are negative and nondiagnostic including Gram stain, protein and glucose in the spinal fluid DVT prophylaxis; SCDs/systemic anticoagulation CODE STATUS; full code
[2021-05-17] MEDS: levETIRAcetam IV 250 MG in SODIUM CHLORIDE 0.9% 100 ML IVPB SCH (10:22)
[2021-05-17 10:50] LABS: African American GFR (CKD) >90 (>60 ml/min/1.73 sqM); Anion Gap 10 mmol/L; Blood Urea Nitrogen 5 mg/dL (7-17); Calcium 8.3 mg/dL (8.4-10.2); Carbon Dioxide 23 mmol/L (22-30); Chloride 103 mmol/L (98-107); Glucose 174 mg/dL (74-99); Non-African American GFR(CKD) >90 (>60 ml/min/1.73 sqM); Sodium 136 mmol/L (137-145)
[2021-05-17] MEDS: SODIUM CHLORIDE 0.9% 1,000 ML IV SCH ×2 (12:22→16:30)
[2021-05-17 12:30] LABS: Glucose,Whole Blood 233 mg/dL (75-99)
--- NOTE | 2021-05-17 14:35 | P.PN ---
Subjective Progress Note Date: 05/17/21 Patient was seen at bedside and her mentation is improving but slightly sleepy. Per the patient nurseseizure-like activity of jerk in of any extremities was notified overnight. Objective - Vital Signs Vital signs: Vital Signs Temp 98 F 05/17/21 12:39 Pulse 94 05/17/21 12:39 Resp 18 05/17/21 12:39 BP 110/65 05/17/21 12:39 Pulse Ox 96 05/17/21 12:39 Intake & Output 05/16/21 05/17/21 05/17/21 18:59 06:59 18:59 Intake Total 1100 1250 Output Total 600 Balance 500 1250 Weight 77.4 kg 56.5 kg Intake: IV 700 Sodium Chloride 0.9% 1, 700 000 ml @ 100 mls/hr IV . Q10H [facility] Rx#:[id number] Intake, IV Titration 400 1250 Amount Acyclovir Sodium 700 mg 100 100 In Sodium Chloride 0.9% 100 ml @ 100 mls/hr IVPB Q8HR [facility] Rx#:[id number] Potassium Chloride 10 meq 100 In Water For Injection 1 100ml.bag @ 100 mls/hr IVPB Q1HR [facility] Rx#: [id number] Potassium Chloride 10 meq 100 In Water For Injection 1 100ml.bag @ 100 mls/hr IVPB Q1HR [facility] Rx#: [id number] Sodium Chloride 0.9% 1, 1000 000 ml @ 100 mls/hr IV . Q10H [facility] Rx#:[id number] cefTRIAXone 1 gm In 50 Sodium Chloride 0.9% 50 ml @ 100 mls/hr IVPB Q24H [facility] Rx#:[id number] levETIRAcetam IV 1,000 mg 100 In Sodium Chloride 0.9% 100 ml @ 400 mls/hr IVPB Q12HR [facility] Rx#:[id number] levETIRAcetam IV 250 mg 100 In Sodium Chloride 0.9% 100 ml @ 400 mls/hr IVPB Q12HR [facility] Rx#:[id number] Output: Urine 600 Other: Voiding Method Diaper Diaper Diaper External Catheter # Voids 1 1 - Exam GENERAL: The patient is lying and does appear not appear in acute distress. NEUROLOGICAL: Higher mental function: Slightly drowsy but is awakeable to voice. Is oriented to self, place. She correctly stated the month is April but stated the year is 2001. She is somewhat slow to respond but better today compared to yesterday. She is following simple commands. Cranial nerves: The pupils are round, equal and reactive to light. Pupils are 3-4mm bilaterally. EOM intact and no nystagmus. No facial weakness. No dysarthria. Motor: Gait could not be assessed because of her condition. The strength is moving all extremities above gravity. Sensation: Normal to touch throughout. Reflexes (right/left): 2+ throughout. Plantars are mute bilaterally. Work-up (Labs/Imaging etc): * MR the brain is reported as 1 cm nonenhancing focus in that medial left thalamus consistent with an old infarct or encephalomalacia. This area showed ring enhancement on an old exam with more extensive edema. This could be the residual of acute infarct on the old exam or resolved inflammatory process such as an abscess at. There is no evidence of any new abnormality in the brain. Involuting tumor not excluded. * A prolonged 2 1/2 hour EEG on 05/13/2021 it is reported as limited study, abnormal EEG. The triphasic wave mentioned above are not epileptiform in nature. Triphasic waves can be seen in the setting of metabolic e ncephalopathy. The diffuse data delta range slowing mentioned above is not epileptiform nature. In combination, these findings indicate moderate diffuse cerebral dysfunction as may be seen in toxic metabolic encephalopathy. No seizure recorded. No epileptiform activities was present. * A prolonged 2 1/2 hour EEG on 05/14/2021: It is reported as limited study, abnormal tone have hour inpatient video EEG. No clinical or electrographic seizures were recorded. No epileptiform activity was present. The triphasic waves mentioned above are not epileptiform in nature. Triphasic waves can be seen in the setting of a metabolic encephalopathy. The diffuse theta delta range slowing mentioned above is not epileptiform nature. In combination, these findings indicate moderate diffuse cerebral dysfunction as may be seen in toxic metabolic encephalopathy. No seizures were recorded. No epilept iform activity was present. * CSF study: It's clear, colorless, 0 nucleated cells, glucose upon 111 and the total protein is 46 which seems normal. No meningoencephalitis from CSF study. * Vitamin B12 is 869, folate is 13.3 which is within normal limits. * TSH is 5.610 which is slightly elevated but the free T4 is 1.91 which is considered normal. - Labs CBC & Chem 7: 05/16/21 05:33 05/17/21 10:15 Labs: Abnormal Lab Results - Last 24 Hours (Table) 05/16/21 05/16/21 05/17/21 Range/Units 16:39 20:51 02:08 Sodium (137-145) mmol/L Potassium (3.5-5.1) mmol/L BUN (7-17) mg/dL Creatinine (0.52-1.04) mg/dL Glucose (74-99) mg/dL POC Glucose (mg/dL) 155 H 188 H 114 H (75-99) mg/dL Calcium (8.4-10.2) mg/dL 05/17/21 05/17/21 05/17/21 Range/Units 07:23 10:15 12:29 Sodium 136 L (137-145) mmol/L Potassium 3.0 L (3.5-5.1) mmol/L BUN 5 L (7-17) mg/dL Creatinine 0.46 L (0.52-1.04) mg/dL Glucose 174 H (74-99) mg/dL POC Glucose (mg/dL) 128 H 233 H (75-99) mg/dL Calcium 8.3 L (8.4-10.2) mg/dL Microbiology - Last 24 Hours (Table) 05/15/21 09:00 CSF Gram Stain - Preliminary Cerebral Spinal Fluid CSF Culture - Preliminary 05/14/21 22:07 Blood Culture - Preliminary Blood No Growth after 48 hours 05/12/21 21:08 Blood Culture - Preliminary Blood No Growth after 96 hours 05/15/21 06:10 Urine Culture - Final Urine,Voided Assessment and Plan Assessment: * Altered mental status: Leonela metabolic encephalopathy from DKA (possibly drastic drop in correction of her sugar lead to her encephalopathy). Per ID possibly UTI. Initially I thought seizure because of fixed low gaze deviation but on two separate prolonged EEG did not support seizure and CSF study is normal---mentation is improving * Possible UTI. * Diabetic ketoacidosis---resolved * History of old left thalamic stroke in 2018 (please refer to HPI for further details since ?abscess on read but it was concluded it was subacute stroke). * atrial fibrillation on eliquis * Type 1 diabetes * Sleep apnea Plan: * Patient is on Keppra 250mg every 12 hours for seizure prophylaxis and will stop Keppra since two EEG did not support seizure (does not have history of seizure). * Infection disease is on board * Patient is on Lipitor 10 mg daily at bedtime and Eliquis 5 mg 1 tablet twice a day for secondary stroke prophylaxis. * Will defer the rest of medical managent to the primary team. Per the daughter, the patient does not have history of seizures. Also baseline is independent but does not control his sugar. The plan is discussed with the patient's nurse. She is clear from neurology team. Alejandro Ramos MD Neuro-Hospitalist Time with Patient: Less than 30
--- NOTE | 2021-05-17 16:50 | P.PN ---
Subjective Progress Note Date: 05/17/21 Principal diagnosis: Acute diabetic ketoacidosis Acute toxic metabolic encephalopathy 65-year-old female with history of diabetes, insulin-requiring, chronic atrial fibrillation, previous CVA/TIA, obstructive sleep apnea syndrome, hypothyroidism, patient was last admitted to [facility] on 04/23 and discharged basically the same day when she presented with lightheadedness and chest pain. Seen by cardiology and underwent a full workup including stress testing and the patient was cleared for discharge basically the same day she was admitted. This time, the patient was brought in by EMS when she had change in mental status and unresponsiveness. Upon EMS arrival, her blood sugar was noted to be extremely elevated. Patient was brought to the ER and she was noted to be in diabetic ketoacidosis with blood sugar of 760, positive ketones, positive anion gap metabolic acidosis, negative CT of the brain, patient was admitted, placed on the DKA protocol 05/16/2021 patient is seen and evaluated at bedside in ICU; patient is sound asleep but is arousable; per nursing staff patient continues to show slight clinical improvement neurologically, she is more appropriate today. Patient is oriented to location and is able to follow simple commands. Slight improvement in her lethargy over the last 24 hours, but she is not back to baseline. Lab review shows CBC and basic metabolic profile renal profile are basically normal except for low potassium at 3.0, being corrected as per protocol. Plan is to continue with current management with possibility of transferring patient to medical floor if remains stable; neurology on board and recommending to continue with Keppra 500 mg every 12 hours for seizure prophylaxis with plans to taper down to 250 mg twice a day since EEG has been unremarkable Patient is on Lipitor 10 mg daily at bedtime and Eliquis 5 mg 1 tablet twice a day for secondary stroke prophylaxis 05/17/2021 Patient is seen and evaluated with nursing staff at bedside; nursing reporting patient more sleepy and lethargic and somewhat more confused this morning Altered mental status: Leonela metabolic encephalopathy from DKA (possibly drastic drop in correction of her sugar lead to her encephalopathy). Per ID possibly UTI. Initially I thought seizure because of fixed low gaze deviation but on two separate prolonged EEG did not support seizure and CSF study is normal; neurology on board and recommending to continue with Keppra 250 mg by mouth every 12 hours for seizure prophylaxis; WBC count since EEG was unremarkable and did not support seizure DKA is resolved and patient will be started on oral diet with continued monitoring of blood sugars with Accu-Cheks before meals and at bedtime with sliding scale insulin Objective - Vital Signs Vital signs: Vital Signs Temp 98.7 F 05/17/21 07:00 Pulse 98 05/17/21 07:00 Resp 18 05/17/21 07:00 BP 134/78 05/17/21 07:00 Pulse Ox 95 05/17/21 07:00 Intake & Output 05/16/21 05/17/21 05/17/21 18:59 06:59 18:59 Intake Total 1100 1250 Output Total 600 Balance 500 1250 Weight 77.4 kg 56.5 kg Intake: IV 700 Sodium Chloride 0.9% 1, 700 000 ml @ 100 mls/hr IV . Q10H INDIRA Rx#:[id number] Intake, IV Titration 400 1250 Amount Acyclovir Sodium 700 mg 100 100 In Sodium Chloride 0.9% 100 ml @ 100 mls/hr IVPB Q8HR INDIRA Rx#:[id number] Potassium Chloride 10 meq 100 In Water For Injection 1 100ml.bag @ 100 mls/hr IVPB Q1HR INDIRA Rx#: [id number] Potassium Chloride 10 meq 100 In Water For Injection 1 100ml.bag @ 100 mls/hr IVPB Q1HR INDIRA Rx#: [id number] Sodium Chloride 0.9% 1, 1000 000 ml @ 100 mls/hr IV . Q10H INDIRA Rx#:[id number] cefTRIAXone 1 gm In 50 Sodium Chloride 0.9% 50 ml @ 100 mls/hr IVPB Q24H INDIRA Rx#:[id number] levETIRAcetam IV 1,000 mg 100 In Sodium Chloride 0.9% 100 ml @ 400 mls/hr IVPB Q12HR INDIRA Rx#:[id number] levETIRAcetam IV 250 mg 100 In Sodium Chloride 0.9% 100 ml @ 400 mls/hr IVPB Q12HR INDIRA Rx#:[id number] Output: Urine 600 Other: Voiding Method Diaper Diaper External Catheter # Voids 1 1 - Exam General Impression: Revealed 65-year-old female, arousable, encephalopathic, steady neurological improvement noted again today. HEENT: Camille, EOMI, nonicteric, no neck masses, no JVD, no stridor, dry mucous membranes. Cardiovascular: Normal S1 and S2, no S3 gallop. Chest: Symmetrical chest expansion, no crackles or rhonchi or wheezes. Abdomen: Soft nontender no megaly no rebound no guarding.. Motor: Moves all 4 extremities, no limitation in range of motion and no deformities Neurological: opens eyes, follows simple instructions, knew or she was. Skin: No rashes. No cyanosis. Psychiatric: Blunted mood and affect, poor mental status. - Labs CBC & Chem 7: 05/16/21 05:33 05/17/21 10:15 Labs: Abnormal Lab Results - Last 24 Hours (Table) 05/16/21 05/16/21 05/16/21 Range/Units 11:28 16:39 20:51 POC Glucose (mg/dL) 112 H 155 H 188 H (75-99) mg/dL 05/17/21 05/17/21 Range/Units 02:08 07:23 POC Glucose (mg/dL) 114 H 128 H (75-99) mg/dL Microbiology - Last 24 Hours (Table) 05/14/21 22:07 Blood Culture - Preliminary Blood No Growth after 48 hours 05/12/21 21:08 Blood Culture - Preliminary Blood No Growth after 96 hours 05/15/21 06:10 Urine Culture - Final Urine,Voided 05/15/21 09:00 CSF Gram Stain - Preliminary Cerebral Spinal Fluid CSF Culture - Preliminary Assessment and Plan Assessment: 1. Acute diabetic ketoacidosis. Resolved. Continue with current management at this time; patient is to be transferred out of ICU later today 2. Acute toxic metabolic encephalopathy secondary to DKA. Neurology is following and recommending to continue with Keppra at this time with plans to taper since EEG is negative for seizures 3. Acute anion gap metabolic acidosis secondary to DKA. Resolved. 4. History of chronic atrial fibrillation. 5. History of insulin-dependent diabetes. 6. History of GERD. 7. History of obstructive sleep apnea syndrome. 8. History of CVA/TIA; remains on Lipitor and systemic anticoagulation. 9. Status post lumbar puncture, initial findings are negative and nondiagnostic including Gram stain, protein and glucose in the spinal fluid DVT prophylaxis; SCDs/systemic anticoagulation CODE STATUS; full code
[2021-05-17] MEDS: POTASSIUM CHLORIDE ER 20 MEQ TAB.ER PO SCH ×2 (17:18→19:17)
[2021-05-17 17:20] LABS: Glucose,Whole Blood 271 mg/dL (75-99)
[2021-05-17 20:53] LABS: Glucose,Whole Blood 190 mg/dL (75-99)
[2021-05-17] MEDS: INSULIN DETEMIR (LEVEMIR) 100 UNIT/ML SYR SQ SCH (22:13)
[2021-05-17] MEDS: POTASSIUM BICARBONATE/CIT AC 20 MEQ TABLET.EFF NG-TUBE SCH ×2 (22:13→23:06)
[2021-05-17] MEDS: ATORVASTATIN 10 MG TAB PO SCH (22:14)
[2021-05-18] MEDS: POTASSIUM BICARBONATE/CIT AC 20 MEQ TABLET.EFF NG-TUBE SCH ×3 (00:04→05:00)
[2021-05-18] MEDS: ACYCLOVIR SODIUM 700 MG in SODIUM CHLORIDE 0.9% 100 ML IVPB SCH ×3 (00:04→15:31)
--- NOTE | 2021-05-18 00:09 | PN ---
PROGRESS NOTE DATE OF SERVICE: 05/17/2021 REASON FOR FOLLOWUP: UTI and a question of encephalitis. INTERVAL HISTORY: The patient is afebrile. The patient is slightly more awake today, however, did not answer any questions. No vomiting, diarrhea or any other changes reported by the nursing staff. PHYSICAL EXAMINATION: Blood pressure 110/65, pulse of 94, temperature is 98. He is 96% on room air. General description is an elderly female lying in bed in no distress. Respiratory system: Unlabored breathing, clear to auscultation anteriorly. Heart S1, S2. Regular rate and rhythm. Abdomen soft, no tenderness. Extremities: No edema of the feet. LABS: No new labs have been obtained today. Urine culture came back negative. Initial it was . DIAGNOSTIC IMPRESSION AND PLAN: Patient admitted to the hospital with mental status changes, multifactorial with concern for an E coli urinary tract infection in this patient who did have an encephalitis. CSF examination while not significantly positive still waiting for the CSF, HSV, DNA by PCR. If negative, will be discontinued. Continue with Rocephin. MMODL / IJN: [id number] /
[2021-05-18 02:26] LABS: Glucose,Whole Blood 151 mg/dL (75-99)
[2021-05-18 02:53] LABS: African American GFR (CKD) >90 (>60 ml/min/1.73 sqM); Anion Gap 10 mmol/L; Blood Urea Nitrogen 5 mg/dL (7-17); Calcium 7.7 mg/dL (8.4-10.2); Carbon Dioxide 20 mmol/L (22-30); Chloride 108 mmol/L (98-107); Glucose 150 mg/dL (74-99); Non-African American GFR(CKD) >90 (>60 ml/min/1.73 sqM); Sodium 138 mmol/L (137-145)
[2021-05-18] MEDS: SODIUM CHLORIDE 0.9% 1,000 ML IV SCH ×2 (04:59→15:31)
[2021-05-18 07:23] LABS: Glucose,Whole Blood 141 mg/dL (75-99)
[2021-05-18] MEDS: PANTOPRAZOLE 40 MG/10 ML VIAL IVP SCH (07:49)
[2021-05-18] MEDS: ENOXAPARIN 40 MG/0.4 ML SYRINGE SQ SCH (07:49)
[2021-05-18] MEDS: METOPROLOL TARTRATE 25 MG TAB PO SCH ×2 (07:50→21:41)
[2021-05-18] MEDS: INSULIN ASPART (NovoLOG) 100 UNIT/ML VIAL SQ SCH ×4 (07:50→21:41)
[2021-05-18 11:53] LABS: Glucose,Whole Blood 227 mg/dL (75-99)
[2021-05-18 13:46] VITALS: BMI 25.7
--- NOTE | 2021-05-18 15:59 | P.PN ---
Subjective Progress Note Date: 05/18/21 This is a 59-year-old female admitted with acute DKA, encephalopathy and multiple other medical issues. Maintained on seizure precautions, Keppra as per neurology. MRI noted ,reviewed as per neurology. Ammonia level XIII. Repeat EEG pending. Obtunded, facial grimacing only to noxious stimuli. Blood sugars controlled, bicarb 17. 05/15/2021: Slightly More Alert this morning, sitting up at bedside with 2 person assist. Anesthesia at bedside , preparing for lumbar puncture. EGD reported negative for seizures. Maintaining O2 sats in the high 90s on room air. Afebrile, T-max 100.7, normal WBC. Renal function stable. Sugars ranging from 150s to 200. 05/18/2021 sitting up in bed, picking at breakfast, mentation improving. Denies chest pain, palpitations shortness of breath. Denies numbness or tingling. Denies lightheadedness ,dizziness or focal deficits. Denies headache. Final lumbar tap Cultures pending. Afebrile. Potassium 3.7. EKG 2 did not report seizures, in a patient without history of seizure,Keppra discontinued as per neurology. Evaluated by PT, requiring rolling walker. Objective - Vital Signs Vital signs: Vital Signs Temp 97.7 F 05/18/21 12:01 Pulse 95 05/18/21 12:01 Resp 20 05/18/21 12:01 BP 130/75 05/18/21 12:01 Pulse Ox 97 05/18/21 12:01 Intake & Output 05/17/21 05/18/21 05/18/21 18:59 06:59 18:59 Intake Total 1400 1650 Balance 1400 1650 Weight 74.5 kg 74.5 kg Intake: IV 1200 Sodium Chloride 0.9% 1, 1200 000 ml @ 100 mls/hr IV . Q10H INDIRA Rx#:[id number] Intake, IV Titration 1400 150 Amount Acyclovir Sodium 700 mg 200 100 In Sodium Chloride 0.9% 100 ml @ 100 mls/hr IVPB Q8HR INDIRA Rx#:[id number] Sodium Chloride 0.9% 1, 1200 000 ml @ 100 mls/hr IV . Q10H INDIRA Rx#:[id number] cefTRIAXone 1 gm In 50 Sodium Chloride 0.9% 50 ml @ 100 mls/hr IVPB Q24H INDIRA Rx#:[id number] Oral 300 Other: Voiding Method Diaper Diaper # Voids 1 - Exam PHYSICAL EXAM: VITAL SIGNS: As above GENERAL: Sitting up in bed, no acute distress, responds slowly, mentation improving. HEENT: Conjunctivae normal. Oral mucosa moist NECK: No JVD. No LNs CARDIOVASCULAR: S1, S2 regular.No murmur RESPIRATION: Breath sounds diminished in the bases. No rhonchi or crackles. ABDOMEN: Soft, nontender . No guarding. no masses palpable. Bowel sounds heard. LEGS: No edema. no swelling NERVOUS SYSTEM: Alert and oriented 2, person and place. Follows simple commands.CARRILLO. Skin: Warm and dry, no rash . - Labs CBC & Chem 7: 05/16/21 05:33 05/18/21 06:56 Labs: Abnormal Lab Results - Last 24 Hours (Table) 05/17/21 05/17/21 05/17/21 Range/Units 17:19 20:20 20:41 Potassium 2.9 L (3.5-5.1) mmol/L Chloride (98-107) mmol/L Carbon Dioxide (22-30) mmol/L BUN (7-17) mg/dL Creatinine (0.52-1.04) mg/dL Glucose (74-99) mg/dL POC Glucose (mg/dL) 271 H 190 H (75-99) mg/dL Calcium (8.4-10.2) mg/dL 05/18/21 05/18/21 05/18/21 Range/Units 02:08 02:21 07:20 Potassium 3.0 L (3.5-5.1) mmol/L Chloride 108 H (98-107) mmol/L Carbon Dioxide 20 L (22-30) mmol/L BUN 5 L (7-17) mg/dL Creatinine 0.47 L (0.52-1.04) mg/dL Glucose 150 H (74-99) mg/dL POC Glucose (mg/dL) 151 H 141 H (75-99) mg/dL Calcium 7.7 L (8.4-10.2) mg/dL 05/18/21 Range/Units 11:39 Potassium (3.5-5.1) mmol/L Chloride (98-107) mmol/L Carbon Dioxide (22-30) mmol/L BUN (7-17) mg/dL Creatinine (0.52-1.04) mg/dL Glucose (74-99) mg/dL POC Glucose (mg/dL) 227 H (75-99) mg/dL Calcium (8.4-10.2) mg/dL Microbiology - Last 24 Hours (Table) 05/15/21 09:00 CSF Gram Stain - Preliminary Cerebral Spinal Fluid CSF Culture - Preliminary 05/14/21 22:07 Blood Culture - Preliminary Blood No Growth after 72 hours 05/12/21 21:08 Blood Culture - Preliminary Blood No Growth after 120 hours Assessment and Plan Assessment: Acute DKA, resolved Acute metabolic encephalopathy, related to the above. Acute anion gap Metabolic acidosis secondary to DKA, resolved History of CVA 2017,left thalamic Chronic atrial fibrillation, Diabetes mellitus type 1 Gastroesophageal reflux disease Obstructive Sleep apnea syndrome Status post lumbar puncture, initial findings are negative and nondiagnostic including Gram stain, protein and glucose in the spinal fluid,cytology pending. Positive HSV I IgG; history of Plan: Continue on current medication regime ,monitoring and symptomatic treatment. Maintain statin and Eliquis. Close monitoring of electrolytes with repeat labs ordered for a.m. PT/OT.discharge planning in progress for the next 24-48 hrs pending cytology. Prognosis guarded given multiple complex medical i ssues. The impression and plan of care has been dictated as directed. : I performed a history and examination of this patient, discussed the same with the dictator. I agree with the dictator's note ,documented as a scribe. Any additional findings or plans will be noted.
[2021-05-18 17:14] LABS: Glucose,Whole Blood 195 mg/dL (75-99)
--- NOTE | 2021-05-18 17:32 | P.PN ---
Subjective Progress Note Date: 05/18/21 Agency at bedside and per the patient nurse she is talking appropriately and was talking to her daughter. She is also walk-in on her own without any difficulties. Objective - Vital Signs Vital signs: Vital Signs Temp 97.7 F 05/18/21 12:01 Pulse 95 05/18/21 12:01 Resp 20 05/18/21 12:01 BP 130/75 05/18/21 12:01 Pulse Ox 97 05/18/21 12:01 Intake & Output 05/17/21 05/18/21 05/18/21 18:59 06:59 18:59 Intake Total 1400 1650 Balance 1400 1650 Weight 74.5 kg 74.5 kg Intake: IV 1200 Sodium Chloride 0.9% 1, 1200 000 ml @ 100 mls/hr IV . Q10H INDIRA Rx#:[id number] Intake, IV Titration 1400 150 Amount Acyclovir Sodium 700 mg 200 100 In Sodium Chloride 0.9% 100 ml @ 100 mls/hr IVPB Q8HR INDIRA Rx#:[id number] Sodium Chloride 0.9% 1, 1200 000 ml @ 100 mls/hr IV . Q10H INDIRA Rx#:[id number] cefTRIAXone 1 gm In 50 Sodium Chloride 0.9% 50 ml @ 100 mls/hr IVPB Q24H INDIRA Rx#:[id number] Oral 300 Other: Voiding Method Diaper Diaper # Voids 1 - Exam GENERAL: The patient is lying and does appear not appear in acute distress. NEUROLOGICAL: Higher mental function: Slightly drowsy but is awakeable to voice. Is oriented to self, place. She correctly stated the month is April but stated the year is 2001. She is somewhat slow to respond but better today compared to yesterday. She is following simple commands. Cranial nerves: The pupils are round, equal and reactive to light. Pupils are 3-4mm bilaterally. EOM intact and no nystagmus. No facial weakness. No dysarthria. Motor: Gait could not be assessed because of her condition. The strength is moving all extremities above gravity. Sensation: Normal to touch throughout. Reflexes (right/left): 2+ throughout. Plantars are mute bilaterally. Work-up (Labs/Imaging etc): * MR the brain is reported as 1 cm nonenhancing focus in that medial left thalamus consistent with an old infarct or encephalomalacia. This area showed ring enhancement on an old exam with more extensive edema. This could be the residual of acute infarct on the old exam or resolved inflammatory process such as an abscess at. There is no evidence of any new abnormality in the brain. Involuting tumor not excluded. * A prolonged 2 1/2 hour EEG on 05/13/2021 it is reported as limited study, abnormal EEG. The triphasic wave mentioned above are not epileptiform in nature. Triphasic waves can be seen in the setting of metabolic encephalopathy. The diffuse data delta range slowing mentioned above is not epileptiform nature. In combination, these findings indicate moderate diffuse cerebral dysfunction as may be seen in toxic metabolic encephalopathy. No seizure recorded. No epileptiform activities was present. * A prolonged 2 1/2 hour EEG on 05/14/2021: It is reported as limited study, abnormal tone have hour inpatient video EEG. No clinical or electrographic seizures were recorded. No epileptiform activity was present. The triphasic waves mentioned above are not epileptiform in nature. Triphasic waves can be seen in the setting of a metabolic encephalopathy. The diffuse theta delta range slowing mentioned above is not epileptiform nature. In combination, these findings indicate moderate diffuse cerebral dysfunction as may be seen in toxic metabolic encephalopathy. No seizures were recorded. No epileptiform activity was present. * CSF study: It's clear, colorless, 0 nucleated cells, glucose upon 111 and the total protein is 46 which seems normal. No meningoencephalitis from CSF study. * Vitamin B12 is 869, folate is 13.3 which is within normal limits. * TSH is 5.610 which is slightly elevated but the free T4 is 1.91 which is consi dered normal. - Labs CBC & Chem 7: 05/16/21 05:33 05/18/21 06:56 Labs: Abnormal Lab Results - Last 24 Hours (Table) 05/17/21 05/17/21 05/18/21 Range/Units 20:20 20:41 02:08 Potassium 2.9 L 3.0 L (3.5-5.1) mmol/L Chloride 108 H (98-107) mmol/L Carbon Dioxide 20 L (22-30) mmol/L BUN 5 L (7-17) mg/dL Creatinine 0.47 L (0.52-1.04) mg/dL Glucose 150 H (74-99) mg/dL POC Glucose (mg/dL) 190 H (75-99) mg/dL Calcium 7.7 L (8.4-10.2) mg/dL 05/18/21 05/18/21 05/18/21 Range/Units 02:21 07:20 11:39 Potassium (3.5-5.1) mmol/L Chloride (98-107) mmol/L Carbon Dioxide (22-30) mmol/L BUN (7-17) mg/dL Creatinine (0.52-1.04) mg/dL Glucose (74-99) mg/dL POC Glucose (mg/dL) 151 H 141 H 227 H (75-99) mg/dL Calcium (8.4-10.2) mg/dL 05/18/21 Range/Units 16:53 Potassium (3.5-5.1) mmol/L Chloride (98-107) mmol/L Carbon Dioxide (22-30) mmol/L BUN (7-17) mg/dL Creatinine (0.52-1.04) mg/dL Glucose (74-99) mg/dL POC Glucose (mg/dL) 195 H (75-99) mg/dL Calcium (8.4-10.2) mg/dL Microbiology - Last 24 Hours (Table) 05/15/21 09:00 CSF Gram Stain - Preliminary Cerebral Spinal Fluid CSF Culture - Preliminary 05/14/21 22:07 Blood Culture - Preliminary Blood No Growth after 72 hours 05/12/21 21:08 Blood Culture - Preliminary Blood No Growth after 120 hours Assessment and Plan Assessment: * Altered mental status: Leonela metabolic encephalopathy from DKA (possibly drastic drop in correction of her sugar lead to her encephalopathy). Per ID possibly UTI. Initially I thought seizure because of fixed low gaze deviation but on two separate prolonged EEG did not support seizure and CSF study is normal---mentation is improving * Possible UTI. * Diabetic ketoacidosis---resolved * History of old left thalamic stroke in 2018 (please refer to HPI for further details since ?abscess on read but it was concluded it was subacute stroke). * atrial fibrillation on eliquis * Type 1 diabetes * Sleep apnea Plan: * Patient is on Keppra 250mg every 12 hours for seizure prophylaxis and will stop Keppra since two EEG did not support seizure (does not have history of seizure). * Infection disease is on board * Patient is on Lipitor 10 mg daily at bedtime and Eliquis 5 mg 1 tablet twice a day for secondary stroke prophylaxis. * Will defer the rest of medical managent to the primary team. Per the daughter, the patient does not have history of seizures. Also baseline is independent but does not control his sugar. The plan is discussed with the patient's nurse. Neurology will sign off. Please reconsult neurology if needed. Alejandro Ramos MD Neuro-Hospitalist Time with Patient: Less than 30
--- NOTE | 2021-05-18 19:05 | PN ---
PROGRESS NOTE DATE OF SERVICE: 05/18/2021. REASON FOR FOLLOWUP: UTI and question of encephalitis. INTERVAL HISTORY: It is noted the patient is afebrile. The patient is more awake and alert today, she is breathing comfortably. Denies having any headache, no chest pain, shortness of breath or cough. No abdominal pain or diarrhea. PHYSICAL EXAMINATION: Blood pressure is 130/75 with a pulse of 95, temperature 97.7. She is 97% on room air. The patient is an elderly female lying in bed, in no distress. Respiratory system: Unlabored breathing, clear to auscultation anteriorly. Heart S1, S2. Regular rate and rhythm. Abdomen: Soft, no tenderness. LABORATORY DATA: No new labs been obtained today. HCT 9, PCR on recent came back negative. DIAGNOSTIC IMPRESSION AND PLAN: Patient admitted to the hospital with mental status changes, possible urinary tract infection. The patient did have HSV DNA by PCR negative on the CSF. Acyclovir will be discontinued. Continue Rocephin and monitor clinical course closely. MMODL / IJN: [id number] /
[2021-05-18] MEDS ORDERED: POTASSIUM BICARBONATE/CIT AC 20 MEQ TABLET.EFF NG-TUBE SCH (20:00)
[2021-05-18 21:33] LABS: Glucose,Whole Blood 242 mg/dL (75-99)
[2021-05-18] MEDS: INSULIN DETEMIR (LEVEMIR) 100 UNIT/ML SYR SQ SCH (21:41)
[2021-05-18] MEDS: ATORVASTATIN 10 MG TAB PO SCH (21:41)
[2021-05-19 02:26] LABS: Glucose,Whole Blood 161 mg/dL (75-99)
[2021-05-19] MEDS: SODIUM CHLORIDE 0.9% 1,000 ML IV SCH ×2 (02:46→15:03)
[2021-05-19 06:04] LABS: Basophils % (A) 0 %; Eosinophils # (A) 0.1 k/uL (0-0.7); Eosinophils % (A) 1 %; HCT 28.5 % (34.0-46.0); Lymphocytes # (A) 0.5 k/uL (1.0-4.8); Lymphocytes % (A) 10 %; MCH 32.1 pg (25.0-35.0); MCHC 35.3 g/dL (31.0-37.0); Mean Platelet Volume 7.3; Monocytes # (A) 0.6 k/uL (0-1.0); Monocytes % (A) 12 %; Neutrophils # (A) 4.1 k/uL (1.3-7.7); Neutrophils % (A) 76 %; Platelet Count 296 k/uL (150-450); RBC 3.13 m/uL (3.80-5.40); RDW 13.2 % (11.5-15.5); WBC 5.4 k/uL (3.8-10.6)
[2021-05-19 07:37] LABS: Glucose,Whole Blood 119 mg/dL (75-99)
[2021-05-19] MEDS: INSULIN ASPART (NovoLOG) 100 UNIT/ML VIAL SQ SCH ×4 (07:38→22:50)
[2021-05-19] MEDS: PANTOPRAZOLE 40 MG/10 ML VIAL IVP SCH (08:13)
[2021-05-19] MEDS: METOPROLOL TARTRATE 25 MG TAB PO SCH ×2 (08:13→22:50)
[2021-05-19] MEDS: ENOXAPARIN 40 MG/0.4 ML SYRINGE SQ SCH (08:13)
--- NOTE | 2021-05-19 11:10 | P.DS ---
Providers Date of admission: 05/12/21 10:20 Expected date of discharge: 05/19/21 Attending physician: Bubba Fallon MD Consults: 05/12/21 10:20 Consult Physician Stat Consulting Provider: Dixie Ferrari Consult Reason/Comments: icu patient Do you want consulting provider notified?: Yes 05/13/21 09:13 Consult Physician Routine Consulting Provider: Alejandro Ramos Consult Reason/Comments: AMS Do you want consulting provider notified?: Yes 05/14/21 11:14 Consult Physician Routine Consulting Provider: Obi Willis Consult Reason/Comments: altered mental status Do you want consulting provider notified?: Yes 05/14/21 11:16 Consult to Anesthesia Routine Consulting Provider: Anesthesia,Services Consult Reason/Comments: LP Primary care physician: Bubba Fallon MD Hospital Course: Final Diagnoses: Acute DKA, resolved Acute metabolic and toxic encephalopathy, related to the above and possible acute UTI with E. coli. Acute anion gap Metabolic acidosis secondary to DKA, resolved History of CVA 2017,left thalamic Chronic atrial fibrillation, Diabetes mellitus type 1 Gastroesophageal reflux disease Obstructive Sleep apnea syndrome Status post lumbar puncture, initial findings are negative and nondiagnostic including Gram stain, protein and glucose in the spinal fluid,cytology pending. Positive HSV I IgG; history of Hospital course:This is a 59-year-old female admitted with acute DKA, encephalopathy and multiple other medical issues. Maintained on seizure precautions, Keppra as per neurology. MRI noted ,reviewed as per neurology. Ammonia level XIII. Repeat EEG pending. Obtunded, facial grimacing only to noxious stimuli. Blood sugars controlled, bicarb 17. 05/15/2021: Slightly More Alert this morning, sitting up at bedside with 2 person assist. Anesthesia at bedside , preparing for lumbar puncture. EGD reported negative for seizures. Maintaining O2 sats in the high 90s on room air. Afebrile, T-max 100.7, normal WBC. Renal function stable. Sugars ranging from 150s to 200. 05/18/2021 sitting up in bed, picking at breakfast, mentation improving. Denies chest pain, palpitations shortness of breath. Denies numbness or tingling. De nies lightheadedness ,dizziness or focal deficits. Denies headache. Final lumbar tap Cultures pending. Afebrile. Potassium 3.7. EKG 2 did not report seizures, in a patient without history of seizure,Keppra discontinued as per neurology. Evaluated by PT, requiring rolling walker. Significant clinical improvement and patient will be discharged to [facility] subacute rehab today in stable condition with guarded prognosis pending final DC recommendations and clearance from ID. The impression and plan of care has been dictated as directed. : I performed a history and examination of this patient, discussed the same with the dictator. I agree with the dictator's note ,documented as a scribe. Any additional findings or plans will be noted. Patient Condition at Discharge: Stable Plan - Discharge Summary New Discharge Prescriptions: New INSULIN LISPRO (HumaLOG) [humaLOG] 0 unit SQ ACHS #1 vial Continue Apixaban [Eliquis] 5 mg PO BID #60 tab Metoprolol Tartrate [Lopressor] 25 mg PO BID Atorvastatin [Lipitor] 10 mg PO HS Sodium Chloride 5% Ophth Oint [Briseida 128] 1 applic LEFT EYE HS Polyvinyl Alcohol/Povidone [Freshkote Eye Drop] 1 applic BOTH EYES QID Changed Insulin Detemir (Levemir) [Levemir] 10 unit SQ BID #0 Discontinued Insulin Aspart [NovoLOG Flexpen] 10 units SQ AC-TID Discharge Medication List Apixaban [Eliquis] 5 mg PO BID #60 tab 09/28/18 [Rx] Polyvinyl Alcohol/Povidone [Freshkote Eye Drop] 1 applic BOTH EYES QID 04/22/21 [History] Sodium Chloride 5% Ophth Oint [Briseida 128] 1 applic LEFT EYE HS 04/22/21 [History] Atorvastatin [Lipitor] 10 mg PO HS 05/12/21 [History] Metoprolol Tartrate [Lopressor] 25 mg PO BID 05/12/21 [History] INSULIN LISPRO (HumaLOG) [humaLOG] 0 unit SQ ACHS #1 vial 05/19/21 [Rx] Insulin Detemir (Levemir) [Levemir] 10 unit SQ BID #0 05/19/21 [Rx] Follow up Appointment(s)/Referral(s): Bubba Fallon MD [Primary Care Provider] - 1 Week (After DC from subacute rehab) [facility] [REFERRING] - 1-2 Days Activity/Diet/Wound Care/Special Instructions: Traci Cardenas .Pending final DC recommendations and clearance from ID CBC,BMP in 3 days
[2021-05-19 12:20] LABS: Glucose,Whole Blood 218 mg/dL (75-99)
[2021-05-19 14:13] LABS: African American GFR (CKD) 29.2 (60.0-200.0); Anion Gap 11.1 mmol/L (4.00-12.00); Carbon Dioxide 24.9 mmol/L (21.6-31.8); Non-African American GFR(CKD) 25.2 (60.0-200.0); Potassium 3.6 mmol/L (3.5-5.5)
[2021-05-19 17:20] LABS: Glucose,Whole Blood 266 mg/dL (75-99)
[2021-05-19 21:06] LABS: Glucose,Whole Blood 218 mg/dL (75-99)
[2021-05-19] MEDS: ATORVASTATIN 10 MG TAB PO SCH (22:50)
[2021-05-19] MEDS: INSULIN DETEMIR (LEVEMIR) 100 UNIT/ML SYR SQ SCH (22:51)
[2021-05-20] MEDS: SODIUM CHLORIDE 0.9% 1,000 ML IV SCH (00:53)
[2021-05-20 03:50] LABS: Glucose,Whole Blood 203 mg/dL (75-99)
--- NOTE | 2021-05-20 06:09 | PN ---
PROGRESS NOTE DATE OF SERVICE: 05/19/2021 REASON FOR FOLLOWUP: E coli urinary tract infection. INTERVAL HISTORY: Patient is afebrile. The patient is breathing comfortably. Denies having any chest pain, shortness of breath or cough. No nausea, vomiting, abdominal pain or diarrhea. PHYSICAL EXAMINATION: Blood pressure 135/77 with a pulse of 90, temperature 97.7. She is 98% on room air. General description is an elderly female lying in bed in no distress. Respiratory system: Unlabored breathing, clear to auscultation anteriorly. Heart S1, S2. Regular rate and rhythm. Abdomen is soft, no tenderness. LABS: Hemoglobin is 10.3, white count 5.4, BUN of 10, creatinine is 2.09. DIAGNOSTIC IMPRESSION AND PLAN: Patient with E coli urinary tract infection, currently covered with Rocephin to continue while monitoring clinical course closely. Continue supportive care. MMODL / IJN: [id number] /
[2021-05-20 07:25] LABS: Glucose,Whole Blood 221 mg/dL (75-99)
[2021-05-20] MEDS: INSULIN ASPART (NovoLOG) 100 UNIT/ML VIAL SQ SCH (10:49)
[2021-05-20] MEDS: ENOXAPARIN 40 MG/0.4 ML SYRINGE SQ SCH (10:49)
[2021-05-20] MEDS: METOPROLOL TARTRATE 25 MG TAB PO SCH (10:49)
[2021-05-20] MEDS: PANTOPRAZOLE 40 MG/10 ML VIAL IVP SCH (10:50)
--- NOTE | 2021-05-20 12:11 | CDI ---
Documentation Clarification Form Date: 05/20/2021 11:20:28 AM From: Monika Mirza RN, CCDS Admit Date: 05/12/2021 10:20:00 AM Patient Name: Madison Mauricio Visit Number: [id number] Discharge Date: ATTENTION: The Clinical Documentation Specialists (CDI) and [facility] Coding Staff appreciate your assistance in clarifying documentation. Please respond to the clarification below the line at the bottom and electronically sign. The CDI & [facility] Coding staff will review the response and follow-up if needed. Please note: Queries are made part of the Legal Health Record. If you have any questions, please contact the author of this message via ITS. Dr. Bubba Fallon UTI is documented in the ID progress notes starting on 05/15/21. Additional clarification regarding this diagnosis is requested. 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 She was admitted to ICU for diabetic ketoacidosis. The nursing documentation, a Buck catheter was inserted on 05/12-05/14 changing to External catheter with diapers/brief. She is incontinent of urine and stool. 05/12 Vital signs: 114/80 117 26 97.3 97 % RA 05/14 Vital signs: 131/74 83 29 100.1 (AX) 05/12 WBC 8.7 05/12 Urinalysis: Urine Glucose 4+, Urine Ketones 4+, Ur Leukocyte Esterase Negative, and WBC 6 05/12 Urine Culture catheterized: Escherichia coli 05/15 Urinalysis: Urine Glucose 3+ Urine Ketones 1+, Ur Leukocyte Esterase Large, WBC 115 Treatment Rocephin 1GM IVPB Q 24 HRS 05/14-05/19 Monitor I/O Vital signs per protocol Please clarify if there is an additional diagnosis associated with the UTI: [ ] UTI only POA [ ] UTI only not POA [ ] UTI Secondary to Buck Catheter [ ] Contaminated specimen [ ] Other, please specify [ ] Unable to determine (Template Last Revised: January 2021) UTI only POA MTDD
[2021-05-20 12:48] VITALS: BP 148/73; PULSE 96; RESP 18; TEMP 98.6
--- NOTE | 2021-05-20 13:42 | P.PN ---
Progress Note - Text Progress Note Date: 05/20/21 REASON FOR FOLLOWUP: E coli urinary tract infection. INTERVAL HISTORY: Patient remains to be afebrile. The patient is breathing comfortably. The Pt denies having any chest pain, shortness of breath or cough. No nausea, vomiting, abdominal pain or diarrhea. PHYSICAL EXAMINATION: Blood pressure 130/70 with a pulse of 90, temperature 97.7. She is 98% on room air. General description is an elderly female lying in bed in no distress. Respiratory system: Unlabored breathing, clear to auscultation anteriorly. Heart S1, S2. Regular rate and rhythm. Abdomen is soft, no tenderness. LABS: reviewed DIAGNOSTIC IMPRESSION AND PLAN: Patient with E coli urinary tract infection, improved on Rocephin , to finish therapy with oral ceftin 500mg bid x 5 days , script sent.
[2021-05-21] MEDS ORDERED: ENOXAPARIN 30 MG/0.3 ML SYRINGE SQ SCH (09:00)
== END 2021-05-20 12:55 | DRG 637 ==
LOC: EC 08:10 → 2SICU 10:20 → 5NMEDONC 05-16 18:10
PROVIDERS: ADMIT Family Medicine; ATTEND Family Medicine
PROC: 009U3ZX Drainage of Spinal Canal, Percutaneous Approach, Diagnostic (ICD-10-PCS; principal; 2021-05-15)
DX: E10.10 Type 1 diabetes mellitus with ketoacidosis without coma (principal); G92 Toxic encephalopathy; I48.20 Chronic atrial fibrillation, unspecified; N39.0 Urinary tract infection, site not specified; Z79.4 Long term (current) use of insulin; E87.8 Other disorders of electrolyte and fluid balance, not elsewhere classified; Z20.822 Contact with and (suspected) exposure to COVID-19; D75.89 Other specified diseases of blood and blood-forming organs; B96.20 Unspecified Escherichia coli [E. coli] as the cause of diseases classified elsewhere; G47.33 Obstructive sleep apnea (adult) (pediatric); E06.3 Autoimmune thyroiditis; K21.9 Gastro-esophageal reflux disease without esophagitis; E66.9 Obesity, unspecified; Z68.32 Body mass index [BMI] 32.0-32.9, adult; Z79.01 Long term (current) use of anticoagulants; Z79.899 Other long term (current) drug therapy; Z86.73 Personal history of transient ischemic attack (TIA), and cerebral infarction without residual deficits; Z98.84 Bariatric surgery status; Z90.49 Acquired absence of other specified parts of digestive tract; Z90.89 Acquired absence of other organs; Z90.721 Acquired absence of ovaries, unilateral; Z87.42 Personal history of other diseases of the female genital tract; Z86.79 Personal history of other diseases of the circulatory system; Z98.890 Other specified postprocedural states; Z71.3 Dietary counseling and surveillance; Z88.0 Allergy status to penicillin; Z83.49 Family history of other endocrine, nutritional and metabolic diseases; Z82.49 Family history of ischemic heart disease and other diseases of the circulatory system; G93.89 Other specified disorders of brain
CPT/HCPCS: 36415; 70450; 70553; 71045; 80048; 80053; 81001; 82009; 82140; 82533; 82607; 82746; 82803; 82945; 83605; 83690; 83735; 84100; 84132; 84157; 84439; 84443; 85025; 85027; 85610; 85730; 86140; 86695; 86696; 87040; 87070; 87077; 87086; 87186; 87205; 87529; 87635; 87798; 88108; 89050; 93005; 95713; 96361; 96374; 99291

== ENCOUNTER 2021-09-27 19:16 | Inpatient (IN) | payer OTHER, MEDICARE ==
--- NOTE | 2021-09-27 19:42 | ED ---
General Adult HPI - General Chief complaint: Altered Mental Status Stated complaint: Altered LOC Time Seen by Provider: 09/27/21 19:39 Source: patient, EMS Mode of arrival: EMS Limitations: altered mental status - History of Present Illness Initial comments: Patient presents to the ED by ambulance for evaluation of altered mental status. Per EMS, patient's family reported that the patient is normally A and O 4, but she has been very confused and disoriented today. Per EMS, the patient's family also reported that the patient recently had a fall, and they are uncertain of head injury. Per EMS, the patient's blood glucose was in the 400s on their check. Patient is able to tell me her name and follows simple commands, but she is otherwise completely disoriented. Patient is unable to provide any useful history at this time. - Related Data Home Medications Medication Instructions Recorded Confirmed Polyvinyl Alcohol/Povidone 1 applic BOTH EYES QID 04/22/21 09/27/21 [[place] Eye Drop] Sodium Chloride 5% Ophth Oint 1 applic LEFT EYE HS 04/22/21 09/27/21 [Briseida 128] Metoprolol Tartrate [Lopressor] 25 mg PO BID 05/12/21 09/27/21 Alendronate Sodium [Fosamax] 70 mg PO Q7D 09/27/21 09/27/21 Atorvastatin [Lipitor] 20 mg PO DAILY 09/27/21 09/27/21 INSULIN ASPART (NovoLOG) [NovoLOG See Protocol SQ ACHS 09/27/21 09/27/21 (formulary)] Previous Rx's Medication Instructions Recorded Apixaban [Eliquis] 5 mg PO BID #60 tab 05/19/21 Insulin Detemir (Levemir) [Levemir] 10 unit SQ BID #0 05/19/21 Pantoprazole Sodium [Protonix] 40 mg PO DAILY #30 tablet. 05/19/21 Allergies Allergy/AdvReac Type Severity Reaction Status Date / Time Penicillins Allergy Unknown Verified 09/27/21 22:55 Review of Systems ROS Statement: Those systems with pertinent positive or pertinent negative responses have been documented in the HPI. ROS Other: All systems not noted in ROS Statement are negative. Limitations: ROS unobtainable due to patients medical condition Past Medical History Past Medical History: Atrial Fibrillation, CVA/TIA, Diabetes Mellitus, GERD/Reflux, Sleep Apnea/CPAP/BIPAP, Thyroid Disorder Additional Past Medical History / Comment(s): no cpap used, arthritis, thyroid nodule, Karis disease, 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 Needs to use a child's one. mother has diff coming out Past Psychological History: No Psychological Hx Reported Smoking Status: Never smoker Past Alcohol Use History: None Reported Past Drug Use History: None Reported - Past Family History Mother Family Medical History: Thyroid Disorder Additional Family Medical History / Comment(s): thyroid removed Father Family Medical History: Myocardial Infarction ([place]) General Exam Limitations: no limitations General appearance: alert Head exam: Present: atraumatic, normocephalic Eye exam: Present: normal appearance, PERRL, EOMI ENT exam: Present: mucous membranes dry Neck exam: Present: normal inspection, other (No nuchal rigidity or meningeal signs are present on examination; trachea is in midline). Absent: tenderness, meningismus Respiratory exam: Present: normal lung sounds bilaterally. Absent: respiratory distress, wheezes, rales, rhonchi, stridor Cardiovascular Exam: Present: normal rhythm, tachycardia, normal heart sounds, other (Normal radial pulses bilaterally) GI/Abdominal exam: Present: soft. Absent: distended, tenderness, guarding Extremities exam: Absent: tenderness, pedal edema Neurological exam: Present: alert, other (Patient is only oriented to herself; patient is moving all 4 generally spontaneously; patient localizes to pain in all 4 extremities) Psychiatric exam: Present: other (Patient is restless in appearance) Skin exam: Present: warm, dry, intact, normal color Course Vital Signs 09/27/21 09/27/21 09/27/21 19:18 19:49 20:00 Temperature 97.6 F 97.6 F Pulse Rate 121 H 120 H 121 H Respiratory 16 18 16 Rate Blood Pressure 94/55 92/77 101/44 O2 Sat by Pulse 97 97 97 Oximetry 09/27/21 09/27/21 21:00 22:44 Temperature 97.8 F Pulse Rate 120 H 110 H Respiratory 16 18 Rate Blood Pressure 99/65 96/60 O2 Sat by Pulse 96 96 Oximetry - Reevaluation(s) Reevaluation #1: 09/27/21 22:34 Case, H&P, test results and ED management were discussed with Dr. Polanco. He accepts ICU admission. He has no further recommendations at this time. 09/27/21 23:14 Case, H&P, test results, ED management, and my discussion with Dr. Polanco as above were discussed with Dr. Ramos (divinity teacher). He agrees to see the patient in consultation. He has no further recommendations at this time. EKG Findings - EKG Comments: EKG Findings:: Sinus tachycardia, ventricular rate of 116 bpm, no ectopy, normal MA and QRS intervals, normal QT interval, normal axis, no ST or T-wave abno rmality Medical Decision Making - Medical Decision Making Patient's laboratory evaluation is pertinent for findings of diabetic ketoacidosis, which is what I strongly suspect is the etiology of the patient's altered mental status. Patient has been treated with IV fluids in the ED, and she was started on an IV insulin drip. I do not suspect an infectious process at this time. Patient's head CT is negative. Dr. Polanco has accepted hospital ICU admission. Dr. Ramos (divinity teacher) has been consulted. - Lab Data Result diagrams: 09/27/21 20:07 09/27/21 20:07 Lab Results 09/27/21 09/27/21 09/27/21 Range/Units 20:07 20:07 20:07 WBC 9.5 (3.8-10.6) k/uL RBC 4.32 (3.80-5.40) m/uL Hgb 13.3 (11.4-16.0) gm/dL Hct 41.2 (34.0-46.0) % MCV 95.5 (80.0-100.0) fL MCH 30.9 (25.0-35.0) pg MCHC 32.3 (31.0-37.0) g/dL RDW 12.7 (11.5-15.5) % Plt Count 295 (150-450) k/uL MPV 8.6 Neutrophils % 86 % Lymphocytes % 7 % Monocytes % 5 % Eosinophils % 0 % Basophils % 0 % Neutrophils # 8.2 H (1.3-7.7) k/uL Lymphocytes # 0.6 L (1.0-4.8) k/uL Monocytes # 0.5 (0-1.0) k/uL Eosinophils # 0.0 (0-0.7) k/uL Basophils # 0.0 (0-0.2) k/uL PT 11.9 (9.0-12.0) sec INR 1.1 (<1.2) APTT 22.4 (22.0-30.0) sec VBG pH (7.31-7.41) VBG pCO2 (37-51) mmHg VBG HCO3 (24-28) mmol/L Sodium (137-145) mmol/L Potassium (3.5-5.1) mmol/L Chloride (98-107) mmol/L Carbon Dioxide (22-30) mmol/L Anion Gap mmol/L BUN (7-17) mg/dL Creatinine (0.52-1.04) mg/dL Est GFR (CKD-EPI)AfAm (>60 ml/min/1.73 sqM) Est GFR (CKD-EPI)NonAf (>60 ml/min/1.73 sqM) Glucose (74-99) mg/dL POC Glucose (mg/dL) (75-99) mg/dL POC Glu Gis Database Administrator ID Calcium (8.4-10.2) mg/dL Magnesium (1.6-2.3) mg/dL Total Bilirubin (0.2-1.3) mg/dL AST (14-36) U/L ALT (4-34) U/L Alkaline Phosphatase (38-126) U/L Ammonia (<30) umol/L Troponin I (0.000-0.034) ng/mL NT-Pro-B Natriuret Pep pg/mL Total Protein (6.3-8.2) g/dL Albumin (3.5-5.0) g/dL TSH (0.465-4.680) mIU/L Urine Color Yellow Urine Appearance Clear (Clear) Urine pH 5.5 (5.0-8.0) Ur Specific [place] 1.021 (1.001-1.035) Urine Protein Trace H (Negative) Urine Glucose (UA) 4+ H (Negative) Urine Ketones 3+ H (Negative) Urine Blood Negative (Negative) Urine Nitrite Negative (Negative) Urine Bilirubin Negative (Negative) Urine Urobilinogen <2.0 (<2.0) mg/dL Ur Leukocyte Esterase Negative (Negative) Urine Opiates Screen Not Detected (NotDetected) Ur Oxycodone Screen Not Detected (NotDetected) Urine Methadone Screen Not Detected (NotDetected) Ur Propoxyphene Screen Not Detected (NotDetected) Ur Barbiturates Screen Not Detected (NotDetected) U Tricyclic Antidepress Not Detected (NotDetected) Ur Phencyclidine Scrn Not Detected (NotDetected) Ur Amphetamines Screen Not Detected (NotDetected) U Methamphetamines Scrn Not Detected (NotDetected) U Benzodiazepines Scrn Not Detected (NotDetected) Urine Cocaine Screen Not Detected (NotDetected) U Marijuana (THC) Screen Not Detected (NotDetected) Serum Alcohol mg/dL Acetone, Qual (Negative) 09/27/21 09/27/21 09/27/21 Range/Units 20:07 20:07 20:07 WBC (3.8-10.6) k/uL RBC (3.80-5.40) m/uL Hgb (11.4-16.0) gm/dL Hct (34.0-46.0) % MCV (80.0-100.0) fL MCH (25.0-35.0) pg MCHC (31.0-37.0) g/dL RDW (11.5-15.5) % Plt Count (150-450) k/uL MPV Neutrophils % % Lymphocytes % % Monocytes % % Eosinophils % % Basophils % % Neutrophils # (1.3-7.7) k/uL Lymphocytes # (1.0-4.8) k/uL Monocytes # (0-1.0) k/uL Eosinophils # (0-0.7) k/uL Basophils # (0-0.2) k/uL PT (9.0-12.0) sec INR (<1.2) APTT (22.0-30.0) sec VBG pH (7.31-7.41) VBG pCO2 (37-51) mmHg VBG HCO3 (24-28) mmol/L Sodium 129 L (137-145) mmol/L Potassium 5.8 H (3.5-5.1) mmol/L Chloride 89 L (98-107) mmol/L Carbon Dioxide 5 L* (22-30) mmol/L Anion Gap 35 mmol/L BUN 35 H (7-17) mg/dL Creatinine 1.85 H (0.52-1.04) mg/dL Est GFR (CKD-EPI)AfAm 32 (>60 ml/min/1.73 sqM) Est GFR (CKD-EPI)NonAf 28 (>60 ml/min/1.73 sqM) Glucose 693 H* (74-99) mg/dL POC Glucose (mg/dL) (75-99) mg/dL POC Glu Gis Database Administrator ID Calcium 11.8 H (8.4-10.2) mg/dL Magnesium 1.9 (1.6-2.3) mg/dL Total Bilirubin 0.8 (0.2-1.3) mg/dL AST 18 (14-36) U/L ALT 13 (4-34) U/L Alkaline Phosphatase 49 (38-126) U/L Ammonia <9 (<30) umol/L Troponin I <0.012 (0.000-0.034) ng/mL NT-Pro-B Natriuret Pep pg/mL Total Protein 7.6 (6.3-8.2) g/dL Albumin 4.8 (3.5-5.0) g/dL TSH 1.940 (0.465-4.680) mIU/L Urine Color Urine Appearance (Clear) Urine pH (5.0-8.0) Ur Specific [place] (1.001-1.035) Urine Protein (Negative) Urine Glucose (UA) (Negative) Urine Ketones (Negative) Urine Blood (Negative) Urine Nitrite (Negative) Urine Bilirubin (Negative) Urine Urobilinogen (<2.0) mg/dL Ur Leukocyte Esterase (Negative) Urine Opiates Screen (NotDetected) Ur Oxycodone Screen (NotDetected) Urine Methadone Screen (NotDetected) Ur Propoxyphene Screen (NotDetected) Ur Barbiturates Screen (NotDetected) U Tricyclic Antidepress (NotDetected) Ur Phencyclidine Scrn (NotDetected) Ur Amphetamines Screen (NotDetected) U Methamphetamines Scrn (NotDetected) U Benzodiazepines Scrn (NotDetected) Urine Cocaine Screen (NotDetected) U Marijuana (THC) Screen (NotDetected) Serum Alcohol <10 mg/dL Acetone, Qual Positive (Negative) 09/27/21 09/27/21 09/27/21 Range/Units 20:07 20:07 22:35 WBC (3.8-10.6) k/uL RBC (3.80-5.40) m/uL Hgb (11.4-16.0) gm/dL Hct (34.0-46.0) % MCV (80.0-100.0) fL MCH (25.0-35.0) pg MCHC (31.0-37.0) g/dL RDW (11.5-15.5) % Plt Count (150-450) k/uL MPV Neutrophils % % Lymphocytes % % Monocytes % % Eosinophils % % Basophils % % Neutrophils # (1.3-7.7) k/uL Lymphocytes # (1.0-4.8) k/uL Monocytes # (0-1.0) k/uL Eosinophils # (0-0.7) k/uL Basophils # (0-0.2) k/uL PT (9.0-12.0) sec INR (<1.2) APTT (22.0-30.0) sec VBG pH 7.19 L* (7.31-7.41) VBG pCO2 15 L* (37-51) mmHg VBG HCO3 6 L* (24-28) mmol/L Sodium (137-145) mmol/L Potassium (3.5-5.1) mmol/L Chloride (98-107) mmol/L Carbon Dioxide (22-30) mmol/L Anion Gap mmol/L BUN (7-17) mg/dL Creatinine (0.52-1.04) mg/dL Est GFR (CKD-EPI)AfAm (>60 ml/min/1.73 sqM) Est GFR (CKD-EPI)NonAf (>60 ml/min/1.73 sqM) Glucose (74-99) mg/dL POC Glucose (mg/dL) >600 H (75-99) mg/dL POC Glu Gis Database Administrator ID Jaylene, Emi Calcium (8.4-10.2) mg/dL Magnesium (1.6-2.3) mg/dL Total Bilirubin (0.2-1.3) mg/dL AST (14-36) U/L ALT (4-34) U/L Alkaline Phosphatase (38-126) U/L Ammonia (<30) umol/L Troponin I (0.000-0.034) ng/mL NT-Pro-B Natriuret Pep 335 pg/mL Total Protein (6.3-8.2) g/dL Albumin (3.5-5.0) g/dL TSH (0.465-4.680) mIU/L Urine Color Urine Appearance (Clear) Urine pH (5.0-8.0) Ur Specific [place] (1.001-1.035) Urine Protein (Negative) Urine Glucose (UA) (Negative) Urine Ketones (Negative) Urine Blood (Negative) Urine Nitrite (Negative) Urine Bilirubin (Negative) Urine Urobilinogen (<2.0) mg/dL Ur Leukocyte Esterase (Negative) Urine Opiates Screen (NotDetected) Ur Oxycodone Screen (NotDetected) Urine Methadone Screen (NotDetected) Ur Propoxyphene Screen (NotDetected) Ur Barbiturates Screen (NotDetected) U Tricyclic Antidepress (NotDetected) Ur Phencyclidine Scrn (NotDetected) Ur Amphetamines Screen (NotDetected) U Methamphetamines Scrn (NotDetected) U Benzodiazepines Scrn (NotDetected) Urine Cocaine Screen (NotDetected) U Marijuana (THC) Screen (NotDetected) Serum Alcohol mg/dL Acetone, Qual (Negative) - Radiology Data Radiology results: report reviewed (Chest x-ray: Normal chest. No adverse change.) Noncontrast head CT: Mild atrophy. Old lacunar infarct in the left thalamus. No acute intracranial abnormality. Critical Care Time Critical Care Time: Yes Total Critical Care Time: 70 Disposition Clinical Impression: Altered mental status, Diabetic ketoacidosis, Hyperkalemia, Renal insufficiency Disposition: ADMITTED IP TO THIS [facility] Condition: Stable Is patient prescribed a controlled substance at d/c from ED?: No Time of Disposition: 22:35
[2021-09-27] MEDS ORDERED: SODIUM CHLORIDE 0.9% 1,000 ML IV ONE ×2 (19:54→20:56)
--- NOTE | 2021-09-27 20:21 | XR ---
EXAMINATION TYPE: XR chest 1V portable DATE OF EXAM: 09/27/2021 COMPARISON: 05/15/2021 HISTORY: Altered mental status TECHNIQUE: Single view FINDINGS: Heart and mediastinum are normal. Lungs are clear. Diaphragm is normal. Bony thorax appears normal. IMPRESSION: Normal chest. No adverse change.
[2021-09-27 20:28] LABS: Basophils % (A) 0 %; Eosinophils % (A) 0 %; HCT 41.2 % (34.0-46.0); HGB 13.3 gm/dL (11.4-16.0); Lymphocytes # (A) 0.6 k/uL (1.0-4.8); Lymphocytes % (A) 7 %; MCH 30.9 pg (25.0-35.0); MCHC 32.3 g/dL (31.0-37.0); MCV 95.5 fL (80.0-100.0); Mean Platelet Volume 8.6; Monocytes # (A) 0.5 k/uL (0-1.0); Monocytes % (A) 5 %; Neutrophils # (A) 8.2 k/uL (1.3-7.7); Neutrophils % (A) 86 %; Platelet Count 295 k/uL (150-450); RBC 4.32 m/uL (3.80-5.40); RDW 12.7 % (11.5-15.5); WBC 9.5 k/uL (3.8-10.6)
[2021-09-27 20:40] LABS: ALT 13 U/L (4-34); AST 18 U/L (14-36); African American GFR (CKD) 32 (>60 ml/min/1.73 sqM); Albumin 4.8 g/dL (3.5-5.0); Alcohol <10 mg/dL; Alkaline Phosphatase 49 U/L (38-126); Anion Gap 35 mmol/L; Blood Urea Nitrogen 35 mg/dL (7-17); Calcium 11.8 mg/dL (8.4-10.2); Chloride 89 mmol/L (98-107); Magnesium 1.9 mg/dL (1.6-2.3); Non-African American GFR(CKD) 28 (>60 ml/min/1.73 sqM); Potassium 5.8 mmol/L (3.5-5.1); Sodium 129 mmol/L (137-145); Total Bilirubin 0.8 mg/dL (0.2-1.3); Total Protein 7.6 g/dL (6.3-8.2)
[2021-09-27 20:48] LABS: INR 1.1 (<1.2); Partial Thromboplastin Time 22.4 sec (22.0-30.0); Prothrombin Time 11.9 sec (9.0-12.0); VBG PH 7.19 (7.31-7.41)
[2021-09-27 20:50] LABS: Carbon Dioxide 5 mmol/L (22-30); Glucose 693 mg/dL (74-99)
[2021-09-27] MEDS ORDERED: Magnesium Replacement Protocol 1 EACH MISC MISCELLANE PRN (20:56)
[2021-09-27] MEDS ORDERED: Potassium Replacement Protocol 1 EACH MISC MISCELLANE PRN (20:56)
[2021-09-27] MEDS ORDERED: INSULIN REGULAR BOLUS (FROM DRIP BAG) IV ONE (20:56)
[2021-09-27 22:09] LABS: Appearance,Urine Clear (Clear); Bilirubin,Urine Negative (Negative); Blood,Urine Negative (Negative); Color,Urine Yellow; Glucose,Urine (UA) 4+ (Negative); Leukocyte Esterase,Urine Negative (Negative); Nitrite,Urine Negative (Negative); PH, Urine 5.5 (5.0-8.0); Protein,Urine Trace (Negative); Specific Gravity,Urine 1.021 (1.001-1.035); Urobilinogen,Urine <2.0 mg/dL (<2.0)
[2021-09-27 22:15] LABS: Ketones,Urine 3+ (Negative)
[2021-09-27 22:20] LABS: Amphetamine Screen,Urine Not Detected (NotDetected); Barbiturate Screen,Urine Not Detected (NotDetected); Benzodiazepines Screen,Urine Not Detected (NotDetected); Cocaine Screen,Urine Not Detected (NotDetected); Methadone Screen, Urine Not Detected (NotDetected); Opiate Screen,Urine Not Detected (NotDetected); Oxycodone Screen, Urine Not Detected (NotDetected); Phencyclidine Screen,Urine Not Detected (NotDetected); Tricyclic Antidepressant,Urine Not Detected (NotDetected); Urn Cannabinoid Scrn Not Detected (NotDetected)
--- NOTE | 2021-09-27 22:27 | CT ---
EXAMINATION TYPE: CT brain wo con DATE OF EXAM: 09/27/2021 COMPARISON: 05/12/2021 HISTORY: Patient poor historian. CT DLP: 1202.4 mGycm Automated exposure control for dose reduction was used. There is mild cerebral atrophy. There is no mass effect nor midline shift. There is no sign of intrac ranial hemorrhage. There is 7 mm hypodensity in the left thalamus consistent with an old lacunar infa rct. There is some mild hypodensity around the frontal horns of the lateral ventricles. Calvarium is intact. There is normal aeration of the mastoid sinuses. IMPRESSION: Mild atrophy. Old lacunar infarct in the left thalamus. No acute intracranial abnormality.
[2021-09-27] MEDS: SODIUM CHLORIDE 0.9% 1,000 ML IV SCH (22:39)
[2021-09-27] MEDS: INSULIN REGULAR 100 UNIT in SODIUM CHLORIDE 0.9% 100 ML IV SCH (22:40)
[2021-09-27 22:45] LABS: Glucose,Whole Blood >600 mg/dL (75-99)
[2021-09-27 23:57] LABS: Glucose,Whole Blood >600 mg/dL (75-99)
[2021-09-28 00:06] LABS: Glucose,Whole Blood 527 mg/dL (75-99)
[2021-09-28 00:41] LABS: African American GFR (CKD) 35 (>60 ml/min/1.73 sqM); Blood Urea Nitrogen 33 mg/dL (7-17); Chloride 100 mmol/L (98-107); Non-African American GFR(CKD) 30 (>60 ml/min/1.73 sqM); Phosphorus 6.1 mg/dL (2.5-4.5); Potassium 4.8 mmol/L (3.5-5.1); Sodium 133 mmol/L (137-145)
[2021-09-28 00:42] LABS: VBG PH 7.08 (7.31-7.41)
[2021-09-28 00:55] LABS: Carbon Dioxide <5 mmol/L (22-30); Glucose 570 mg/dL (74-99)
[2021-09-28 02:22] LABS: Glucose,Whole Blood 391 mg/dL (75-99)
[2021-09-28 03:07] LABS: Glucose,Whole Blood 283 mg/dL (75-99)
[2021-09-28] MEDS: [UNRECOGNIZED DRUG - OTHER] IV SCH ×4 (04:17→11:46)
[2021-09-28] MEDS: DEXTROSE IV SCH ×4 (04:17→11:46)
[2021-09-28] MEDS: SODIUM CHLORIDE 0.9% 1,000 ML IV SCH ×3 (04:17→20:31)
[2021-09-28 04:26] LABS: Glucose,Whole Blood 208 mg/dL (75-99)
[2021-09-28 05:24] LABS: Glucose,Whole Blood 174 mg/dL (75-99)
[2021-09-28 05:27] LABS: Albumin 3.4 g/dL (3.5-5.0); Calcium 9.6 mg/dL (8.4-10.2); Phosphorus 1.5 mg/dL (2.5-4.5); Potassium 3.8 mmol/L (3.5-5.1); Total Bilirubin 0.4 mg/dL (0.2-1.3); Total Protein 6.3 g/dL (6.3-8.2)
[2021-09-28 05:34] LABS: Basophils % (A) 0 %; Eosinophils % (A) 0 %; HCT 32.7 % (34.0-46.0); HGB 10.8 gm/dL (11.4-16.0); Lymphocytes # (A) 0.7 k/uL (1.0-4.8); Lymphocytes % (A) 8 %; MCH 30.8 pg (25.0-35.0); MCHC 33.1 g/dL (31.0-37.0); MCV 93.1 fL (80.0-100.0); Mean Platelet Volume 7.7; Monocytes # (A) 0.5 k/uL (0-1.0); Monocytes % (A) 6 %; Neutrophils # (A) 7.4 k/uL (1.3-7.7); Neutrophils % (A) 85 %; Platelet Count 204 k/uL (150-450); RBC 3.51 m/uL (3.80-5.40); RDW 12.7 % (11.5-15.5); WBC 8.7 k/uL (3.8-10.6)
[2021-09-28 06:17] LABS: Glucose,Whole Blood 166 mg/dL (75-99)
[2021-09-28 07:09] LABS: Glucose,Whole Blood 160 mg/dL (75-99)
[2021-09-28] MEDS ORDERED: POTASSIUM CHLORIDE ER 20 MEQ TAB.ER PO SCH (08:00)
[2021-09-28 08:02] LABS: Glucose,Whole Blood 127 mg/dL (75-99)
--- NOTE | 2021-09-28 08:02 | P.CNPUL ---
History of Present Illness Consult date: 09/28/21 Chief complaint: DKA History of present illness: This is a 66-year-old here patient known history of diabetes mellitus maintained on Levemir insulin 10 units twice a day along with NovoLog according to his scale on outpatient basis, patient came into the emergency department because of altered mentation. She was found to be confused and disoriented. According to the family, the patient had a recent fall and we are uncertain if she had any head injury. According to the [facility] blood sugar was above 400 at the scene. The patient was able to tell her name and follows some simple commands. Otherwise she was disoriented. She was brought into the emergency department and the patient was found to have no nuchal rigidity, no fever, tachycardic, normotensive although the blood pressure itself was rather soft. EKG showed a sinus rhythm no active disease and the patient was found to have severe anion gap metabolic acidosis. The serum bicarb is 5 with a sodium of 129 and potassium level of 5.8 with a chloride of 89. The patient's blood sugar was 693. White count was at 9.5 with a hemoglobin of 13.3. The patient accordingly that admitted intensive care unit. Correlation profile was normal. Urine toxin was negative. The UA showed +4 glucose +3 ketones, anion gap initially was at 35. TSH was up to 1.94 with albumin of 4.8 and a total protein of 7.6. Urine drug screen was negative. Urine acetone was positive, serum acetone was positive, serum alcohol level was less than 10. VBG showed a pH of 7.19 with a pCO2 of 15. CAT scan of the brain showed mild atrophy, old lacunar infarct involving the thalamus. In terms of comorbid conditions, the patient is known to have chronic atrial fibrillation, previous history of CVA, diabetes mellitus, obstructive sleep apnea, Karis's thyroiditis with hypothyroidism. The patient has received 2 L of IV fluids in the emergency department and form of normal saline. The patient received another liter in the ICU. Currently is on insulin drip at 0.1 units an hour. She is also on D5 half-normal saline at the rate of 150 mL an hour. Most recent blood sugar is 160. Her mentation is gradually improving. Acute kidney injury is also improving and the creatinine is down to 1.27 from 1.85, most recent anion gap is down to 16. Review of Systems ROS unobtainable: due to mental status Past Medical History Past Medical History: Atrial Fibrillation, CVA/TIA, Diabetes Mellitus, GERD/Reflux, Sleep Apnea/CPAP/BIPAP, Thyroid Disorder Additional Past Medical History / Comment(s): no cpap used, arthritis, thyroid nodule, Karis disease, 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 Needs to use a child's one. mother has diff coming out Past Psychological History: No Psychological Hx Reported Additional Psychological History / Comment(s): Single but lives with adult children and grandchildren. Was in the stationed in the [facility] mostly in [place] [facility]. Denies international travel. No animals in the home. Does not live on a farm. Not noted to have a significant alcohol or r ecreational drug use Smoking Status: Never smoker Past Alcohol Use History: None Reported Past Drug Use History: None Reported - Past Family History Mother Family Medical History: Thyroid Disorder Additional Family Medical History / Comment(s): thyroid removed Father Family Medical History: Myocardial Infarction (CT) Medications and Allergies Home Medications Medication Instructions Recorded Confirmed Type Polyvinyl Alcohol/Povidone 1 applic BOTH EYES QID 04/22/21 09/27/21 History [Freshkote Eye Drop] Sodium Chloride 5% Ophth Oint 1 applic LEFT EYE HS 04/22/21 09/27/21 History [Briseida 128] Metoprolol Tartrate [Lopressor] 25 mg PO BID 05/12/21 09/27/21 History Apixaban [Eliquis] 5 mg PO BID #60 tab 05/19/21 09/27/21 Rx Insulin Detemir (Levemir) [Levemir] 10 unit SQ BID #0 05/19/21 09/27/21 Rx Pantoprazole Sodium [Protonix] 40 mg PO DAILY #30 tablet. 05/19/21 09/27/21 Rx Alendronate Sodium [Fosamax] 70 mg PO Q7D 09/27/21 09/27/21 History Atorvastatin [Lipitor] 20 mg PO DAILY 09/27/21 09/27/21 History INSULIN ASPART (NovoLOG) [NovoLOG See Protocol SQ ACHS 09/27/21 09/27/21 History (formulary)] Allergies Allergy/AdvReac Type Severity Reaction Status Date / Time Penicillins Allergy Unknown Verified 09/27/21 22:55 Physical Exam Vitals: Vital Signs Temp Pulse Resp BP Pulse Ox 09/28/21 07:00 106 H 17 96/49 96 09/28/21 06:00 105 H 14 87/55 97 09/28/21 05:00 107 H 13 84/50 96 09/28/21 04:00 106 H 15 79/54 95 09/28/21 03:00 110 H 16 89/51 96 09/28/21 02:00 110 H 21 93/60 95 09/28/21 01:00 111 H 22 118/60 99 09/28/21 00:07 98 F 129 H 24 112/60 98 09/27/21 23:50 97.4 F L 121 H 18 115/69 97 09/27/21 22:44 97.8 F 110 H 18 96/60 96 09/27/21 21:00 120 H 16 99/65 96 09/27/21 20:00 121 H 16 101/44 97 09/27/21 19:49 97.6 F 120 H 18 92/77 97 09/27/21 19:18 97.6 F 121 H 16 94/55 97 Intake and Output 09/27/21 09/28/21 09/28/21 22:59 06:59 14:59 Intake Total 1266.609 150 Output Total 250 Balance 1016.609 150 Intake: IV 1250 150 D5-0.45% NaCl with KCl 450 150 20Meq/l 1,000 ml @ 150 mls/hr IV .Q6H40M INDIRA Rx# :[id number] Sodium Cloride 0.9% @ 800 200ml/hr Intake, IV Titration 16.609 Amount Insulin Regular 100 unit 16.609 In Sodium Chloride 0.9% 100 ml @ 0.1 UNITS/KG/HR 6.185 mls/hr IV .[id number] INDIRA Rx#:[id number] Output: Urine 250 Other: # Voids 0 0 Weight 61.235 kg 60.1 kg Past the patient is lethargic, comfortable, following some simple commands. She is super confused. Head exam was generally normal. There was no scleral icterus or corneal arcus. Mucous membranes were moist. Neck was supple and without jugular venous distension, thyromegaly, or carotid bruits. Carotids were easily palpable bilaterally. There was no adenopathy. Lungs were clear to auscultation and percussion, and with normal diaphragmatic excursion. No wheezes or rales were noted. Cardiac exam revealed the PMI to be normally situated and sized. The rhythm was regular and no extrasystoles were noted during several minutes of auscultation. The first and second heart sounds were normal and physiologic splitting of the second heart sound was noted. There were no murmurs, rubs, clicks, or gallops. Abdominal exam revealed normal bowel sounds. The abdomen was soft, non-tender, and without masses, organomegaly, or appreciable enlargement of the abdominal aorta. Examination of the extremities revealed easily palpable radial, femoral and pedal pulses. There was no cyanosis, clubbing or edema. Examination of the skin revealed no evidence of significant rashes, suspicious appearing nevi or other concerning lesions. Neurologically the patient is encephalopathic and the patient is moving all 4 extremities without any limitation. There was a cardiac to light. No seizure activity. Some restlessness. No agitation. Results - Laboratory Findings CBC and BMP: 09/28/21 04:55 09/28/21 04:55 PT/INR, D-dimer PT 11.9 sec (9.0-12.0) 09/27/21 20:07 INR 1.1 (<1.2) 09/27/21 20:07 Abnormal lab findings: Abnormal Labs 09/27/21 09/27/21 09/27/21 20:07 20:07 20:07 RBC Hgb Hct Neutrophils # 8.2 H Lymphocytes # 0.6 L VBG pH VBG pCO2 VBG HCO3 Sodium 129 L Potassium 5.8 H Chloride 89 L Carbon Dioxide 5 L* BUN 35 H Creatinine 1.85 H Glucose 693 H* POC Glucose (mg/dL) Calcium 11.8 H Phosphorus Alkaline Phosphatase Albumin Urine Protein Trace H Urine Glucose (UA) 4+ H Urine Ketones 3+ H 09/27/21 09/27/21 09/27/21 20:07 22:35 23:48 RBC Hgb Hct Neutrophils # Lymphocytes # VBG pH 7.19 L* VBG pCO2 15 L* VBG HCO3 6 L* Sodium Potassium Chloride Carbon Dioxide BUN Creatinine Glucose POC Glucose (mg/dL) >600 H >600 H Calcium Phosphorus Alkaline Phosphatase Albumin Urine Protein Urine Glucose (UA) Urine Ketones 09/28/21 09/28/21 09/28/21 00:04 00:06 00:06 RBC Hgb Hct Neutrophils # Lymphocytes # VBG pH 7.08 L* VBG pCO2 16 L* VBG HCO3 4 L* Sodium 133 L Potassium Chloride Carbon Dioxide <5 L* BUN 33 H Creatinine 1.71 H Glucose 570 H* POC Glucose (mg/dL) 527 H Calcium Phosphorus 6.1 H Alkaline Phosphatase Albumin Urine Protein Urine Glucose (UA) Urine Ketones 09/28/21 09/28/21 09/28/21 02:20 03:05 04:24 RBC Hgb Hct Neutrophils # Lymphocytes # VBG pH VBG pCO2 VBG HCO3 Sodium Potassium Chloride Carbon Dioxide BUN Creatinine Glucose POC Glucose (mg/dL) 391 H 283 H 208 H Calcium Phosphorus Alkaline Phosphatase Albumin Urine Protein Urine Glucose (UA) Urine Ketones 09/28/21 09/28/21 09/28/21 04:55 04:55 05:23 RBC 3.51 L Hgb 10.8 L Hct 32.7 L Neutrophils # Lymphocytes # 0.7 L VBG pH VBG pCO2 VBG HCO3 Sodium 136 L Potassium Chloride 109 H Carbon Dioxide 11 L BUN 31 H Creatinine 1.27 H Glucose 208 H POC Glucose (mg/dL) 174 H Calcium Phosphorus 1.5 L Alkaline Phosphatase 25 L Albumin 3.4 L Urine Protein Urine Glucose (UA) Urine Ketones 09/28/21 09/28/21 06:16 07:08 RBC Hgb Hct Neutrophils # Lymphocytes # VBG pH VBG pCO2 VBG HCO3 Sodium Potassium Chloride Carbon Dioxide BUN Creatinine Glucose POC Glucose (mg/dL) 166 H 160 H Calcium Phosphorus Alkaline Phosphatase Albumin Urine Protein Urine Glucose (UA) Urine Ketones - Diagnostic Findings CT scan - chest: image reviewed Assessment and Plan Plan: 1 acute DKA with severe anion gap metabolic acidosis and blood sugars above 600 with an initial anion gap of 35 and the patient is currently on IV fluids and insulin drip per DKA protocol. She is known to have diabetes mellitus 2 diabetes mellitus maintained on Levemir insulin outpatient basis at 10 units twice a day in addition to NovoLog according to his scale 3 altered mental status secondary to above 4 metabolic derangements secondary to DKA. 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 At this point in time she remains confused. No obvious focal neurological deficit and the CAT scan of the brain is negative. Continue insulin drip per protocol Continue D5 half-normal saline at the rate of 150 mL an hour Keep the patient nothing by mouth Monitor potassium level and replace the phosphorus Continue monitoring the blood sugar every 1 hour Renal function continues to improve Check home medications Check amylase lipase Restart oral medication once the patient is fully awake and alert. The patient nothing by mouth for now We'll continue to follow. Time with Patient: Greater than 30
[2021-09-28] MEDS ORDERED: Phosphorus Replacement Protoco 1 EACH MISC MISCELLANE PRN (08:07)
[2021-09-28 08:54] LABS: Amylase 54 U/L (30-110); Lipase 264 U/L (23-300)
[2021-09-28] MEDS: POTASSIUM PHOSPHATE 10 MMOL in SODIUM CHLORIDE 0.9% 250 ML IV SCH ×2 (09:05→11:44)
[2021-09-28 09:13] LABS: Glucose,Whole Blood 116 mg/dL (75-99)
[2021-09-28 10:04] LABS: Glucose,Whole Blood 102 mg/dL (75-99)
[2021-09-28] MEDS ORDERED: D5-0.45% NACL WITH KCL 20MEQ/L 1,000 ML IV SCH (10:40)
[2021-09-28 11:15] LABS: Glucose,Whole Blood 92 mg/dL (75-99)
[2021-09-28] MEDS: ATORVASTATIN 20 MG TAB PO SCH (11:21)
[2021-09-28] MEDS: PANTOPRAZOLE 40 MG TABLET PO SCH (11:21)
[2021-09-28 13:21] LABS: Calcium 9.5 mg/dL (8.4-10.2); Potassium 4.3 mmol/L (3.5-5.1)
[2021-09-28 13:49] VITALS: BMI 24.2
[2021-09-28 14:38] LABS: Glucose,Whole Blood 239 mg/dL (75-99)
[2021-09-28] MEDS: INSULIN REGULAR 100 UNIT in SODIUM CHLORIDE 0.9% 100 ML IV SCH (15:04)
[2021-09-28 16:42] LABS: Glucose,Whole Blood 267 mg/dL (75-99)
[2021-09-28] MEDS: INSULIN ASPART (NovoLOG) 100 UNIT/ML VIAL SQ SCH ×2 (17:24→20:30)
--- NOTE | 2021-09-28 18:16 | P.HPIM ---
History of Present Illness H&P Date: 09/28/21 Chief Complaint: Altered mental status changes Ms. Mauricio is a medical history of poorly controlled diabetes, atrial fibrillation, stroke/TIA, diabetes mellitus, GERD, sleep apnea, thyroid disorder brought into the emergency department for altered mentation. According to the family patient had a recent fall, was not sure if she had a head injury. At the time when EMS was there at the scene patient's blood sugar was above 400 and she was able to follow simple commands but was disoriented. This morning patient is in the ICU, would open her eyes on calling her name but could not give me any history. So most of the history is taken from the nursing staff report and chart review. At the time of admission patient's vitals T-max of 97.6, heart rate 120s, respiratory rate 16, blood pressure 94/55 saturating at 97% on room air. Labs at the time of admission showing white count of 9.5, hemoglobin 13.3, platelets of 4-95. Sodium 1295.8, chloride 98, bicarb 5 with an anion gap of 35. Blood sugars were in the range of 750. Creatinine was 1.71. Urine drug screen was negative. Urine analysis was positive for 4+ glucose and 3+ ketones. Alcohol level was less than 10. CBGs are available but no ABGs. Patient had a CAT scan of the head that was showing mild atrophy, old lacunar infract in the left thalamus but no acute intracranial abnormality. Patient was admitted, started on insulin drip and transferred to ICU. She is still currently on the insulin drip. Review of Systems ROS unobtainable: due to mental status Past Medical History Past Medical History: Atrial Fibrillation, CVA/TIA, Diabetes Mellitus, GERD/Reflux, Sleep Apnea/CPAP/BIPAP, Thyroid Disorder Additional Past Medical History / Comment(s): no cpap used, arthritis, thyroid nodule, Karis disease, 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 Needs to use a child's one. mother has diff coming out Past Psychological History: No Psychological Hx Reported Additional Psychological History / Comment(s): Single but lives with adult children and grandchildren. Was in the stationed in the [facility] mostly in [facility]. Denies international travel. No animals in the home. Does not live on a farm. Not noted to have a significant alcohol or recreational drug use Smoking Status: Never smoker Past Alcohol Use History: None Reported Past Drug Use History: None Reported - Past Family History Mother Family Medical History: Thyroid Disorder Additional Family Medical History / Comment(s): thyroid removed Father Family Medical History: Myocardial Infarction ([place]) Medications and Allergies Home Medications Medication Instructions Recorded Confirmed Type Polyvinyl Alcohol/Povidone 1 applic BOTH EYES QID 04/22/21 09/27/21 History [Freshkote Eye Drop] Sodium Chloride 5% Ophth Oint 1 applic LEFT EYE HS 04/22/21 09/27/21 History [Briseida 128] Metoprolol Tartrate [Lopressor] 25 mg PO BID 05/12/21 09/27/21 History Apixaban [Eliquis] 5 mg PO BID #60 tab 05/19/21 09/27/21 Rx Insulin Detemir (Levemir) [Levemir] 10 unit SQ BID #0 05/19/21 09/27/21 Rx Pantoprazole Sodium [Protonix] 40 mg PO DAILY #30 tablet.dr 05/19/21 09/27/21 Rx Alendronate Sodium [Fosamax] 70 mg PO Q7D 09/27/21 09/27/21 History Atorvastatin [Lipitor] 20 mg PO DAILY 09/27/21 09/27/21 History INSULIN ASPART (NovoLOG) [NovoLOG See Protocol SQ ACHS 09/27/21 09/27/21 History (formulary)] Allergies Allergy/AdvReac Type Severity Reaction Status Date / Time Penicillins Allergy Unknown Verified 09/27/21 22:55 Physical Exam Vitals: Vital Signs Temp Pulse Resp BP Pulse Ox 09/28/21 11:00 94 16 92/53 95 09/28/21 10:00 95 18 92/46 98 09/28/21 09:00 92 14 90/54 95 09/28/21 08:00 102 H 19 92/64 96 09/28/21 07:00 106 H 17 96/49 96 09/28/21 06:00 105 H 14 87/55 97 09/28/21 05:00 107 H 13 84/50 96 09/28/21 04:00 106 H 15 79/54 95 09/28/21 03:00 110 H 16 89/51 96 09/28/21 02:00 110 H 21 93/60 95 09/28/21 01:00 111 H 22 118/60 99 09/28/21 00:07 98 F 129 H 24 112/60 98 09/27/21 23:50 97.4 F L 121 H 18 115/69 97 09/27/21 22:44 97.8 F 110 H 18 96/60 96 09/27/21 21:00 120 H 16 99/65 96 09/27/21 20:00 121 H 16 101/44 97 09/27/21 19:49 97.6 F 120 H 18 92/77 97 09/27/21 19:18 97.6 F 121 H 16 94/55 97 Intake and Output 09/27/21 09/28/21 09/28/21 22:59 06:59 14:59 Intake Total 1266.609 899.093 Output Total 250 Balance 1016.609 899.093 Intake: IV 1250 600 D5-0.45% NaCl with KCl 450 600 20Meq/l 1,000 ml @ 150 mls/hr IV .Q6H40M INDIRA Rx# :[id number] Sodium Cloride 0.9% @ 800 200ml/hr Intake, IV Titration 16.609 299.093 Amount Insulin Regular 100 unit 16.609 49.093 In Sodium Chloride 0.9% 100 ml @ 0.1 UNITS/KG/HR 6.185 mls/hr IV .[id number] INDIRA Rx#:[id number] Potassium Phosphate 10 250 mmol In Sodium Chloride 0 .9% 250 ml @ 125 mls/hr IV Q2H INDIRA Rx#:[id number] Output: Urine 250 Other: Voiding Method Bedpan # Voids 0 0 Weight 61.235 kg 60.1 kg PHYSICAL EXAMINATION: GENERAL: Patient is lethargic. But follows simple commands like squeezing my hand and wiggling her toes. She would fall back to sleep after answering the question asked. HEENT: Pupils are round and equally reacting to light. EOMI. No scleral icterus. No conjunctival pallor. Normocephalic, atraumatic. No pharyngeal erythema. No thyromegaly. No nuchal rigidity. CARDIOVASCULAR: S1 and S2 present. No murmurs, rubs, or gallops. PULMONARY: Respiratory breath sounds are positive. No crackles ABDOMEN: Soft, nontender, nondistended, normoactive bowel sounds. No palpable organomegaly. MUSCULOSKELETAL: No joint swelling or deformity. EXTREMITIES: No cyanosis, clubbing, or pedal edema. NEUROLOGICAL: No focal neurological deficits. SKIN: No rashes. Results CBC & Chem 7: 09/28/21 04:55 09/28/21 12:39 Labs: Abnormal Lab Results - Last 24 Hours (Table) 09/27/21 09/27/21 09/27/21 Range/Units 20:07 20:07 20:07 RBC (3.80-5.40) m/uL Hgb (11.4-16.0) gm/dL Hct (34.0-46.0) % Neutrophils # 8.2 H (1.3-7.7) k/uL Lymphocytes # 0.6 L (1.0-4.8) k/uL VBG pH (7.31-7.41) VBG pCO2 (37-51) mmHg VBG HCO3 (24-28) mmol/L Sodium 129 L (137-145) mmol/L Potassium 5.8 H (3.5-5.1) mmol/L Chloride 89 L (98-107) mmol/L Carbon Dioxide 5 L* (22-30) mmol/L BUN 35 H (7-17) mg/dL Creatinine 1.85 H (0.52-1.04) mg/dL Glucose 693 H* (74-99) mg/dL POC Glucose (mg/dL) (75-99) mg/dL Calcium 11.8 H (8.4-10.2) mg/dL Phosphorus (2.5-4.5) mg/dL Alkaline Phosphatase (38-126) U/L Albumin (3.5-5.0) g/dL Urine Protein Trace H (Negative) Urine Glucose (UA) 4+ H (Negative) Urine Ketones 3+ H (Negative) 09/27/21 09/27/21 09/27/21 Range/Units 20:07 22:35 23:48 RBC (3.80-5.40) m/uL Hgb (11.4-16.0) gm/dL Hct (34.0-46.0) % Neutrophils # (1.3-7.7) k/uL Lymphocytes # (1.0-4.8) k/uL VBG pH 7.19 L* (7.31-7.41) VBG pCO2 15 L* (37-51) mmHg VBG HCO3 6 L* (24-28) mmol/L Sodium (137-145) mmol/L Potassium (3.5-5.1) mmol/L Chloride (98-107) mmol/L Carbon Dioxide (22-30) mmol/L BUN (7-17) mg/dL Creatinine (0.52-1.04) mg/dL Glucose (74-99) mg/dL POC Glucose (mg/dL) >600 H >600 H (75-99) mg/dL Calcium (8.4-10.2) mg/dL Phosphorus (2.5-4.5) mg/dL Alkaline Phosphatase (38-126) U/L Albumin (3.5-5.0) g/dL Urine Protein (Negative) Urine Glucose (UA) (Negative) Urine Ketones (Negative) 09/28/21 09/28/21 09/28/21 Range/Units 00:04 00:06 00:06 RBC (3.80-5.40) m/uL Hgb (11.4-16.0) gm/dL Hct (34.0-46.0) % Neutrophils # (1.3-7.7) k/uL Lymphocytes # (1.0-4.8) k/uL VBG pH 7.08 L* (7.31-7.41) VBG pCO2 16 L* (37-51) mmHg VBG HCO3 4 L* (24-28) mmol/L Sodium 133 L (137-145) mmol/L Potassium (3.5-5.1) mmol/L Chloride (98-107) mmol/L Carbon Dioxide <5 L* (22-30) mmol/L BUN 33 H (7-17) mg/dL Creatinine 1.71 H (0.52-1.04) mg/dL Glucose 570 H* (74-99) mg/dL POC Glucose (mg/dL) 527 H (75-99) mg/dL Calcium (8.4-10.2) mg/dL Phosphorus 6.1 H (2.5-4.5) mg/dL Alkaline Phosphatase (38-126) U/L Albumin (3.5-5.0) g/dL Urine Protein (Negative) Urine Glucose (UA) (Negative) Urine Ketones (Negative) 09/28/21 09/28/21 09/28/21 Range/Units 02:20 03:05 04:24 RBC (3.80-5.40) m/uL Hgb (11.4-16.0) gm/dL Hct (34.0-46.0) % Neutrophils # (1.3-7.7) k/uL Lymphocytes # (1.0-4.8) k/uL VBG pH (7.31-7.41) VBG pCO2 (37-51) mmHg VBG HCO3 (24-28) mmol/L Sodium (137-145) mmol/L Potassium (3.5-5.1) mmol/L Chloride (98-107) mmol/L Carbon Dioxide (22-30) mmol/L BUN (7-17) mg/dL Creatinine (0.52-1.04) mg/dL Glucose (74-99) mg/dL POC Glucose (mg/dL) 391 H 283 H 208 H (75-99) mg/dL Calcium (8.4-10.2) mg/dL Phosphorus (2.5-4.5) mg/dL Alkaline Phosphatase (38-126) U/L Albumin (3.5-5.0) g/dL Urine Protein (Negative) Urine Glucose (UA) (Negative) Urine Ketones (Negative) 09/28/21 09/28/21 09/28/21 Range/Units 04:55 04:55 05:23 RBC 3.51 L (3.80-5.40) m/uL Hgb 10.8 L (11.4-16.0) gm/dL Hct 32.7 L (34.0-46.0) % Neutrophils # (1.3-7.7) k/uL Lymphocytes # 0.7 L (1.0-4.8) k/uL VBG pH (7.31-7.41) VBG pCO2 (37-51) mmHg VBG HCO3 (24-28) mmol/L Sodium 136 L (137-145) mmol/L Potassium (3.5-5.1) mmol/L Chloride 109 H (98-107) mmol/L Carbon Dioxide 11 L (22-30) mmol/L BUN 31 H (7-17) mg/dL Creatinine 1.27 H (0.52-1.04) mg/dL Glucose 208 H (74-99) mg/dL POC Glucose (mg/dL) 174 H (75-99) mg/dL Calcium (8.4-10.2) mg/dL Phosphorus 1.5 L (2.5-4.5) mg/dL Alkaline Phosphatase 25 L (38-126) U/L Albumin 3.4 L (3.5-5.0) g/dL Urine Protein (Negative) Urine Glucose (UA) (Negative) Urine Ketones (Negative) 09/28/21 09/28/21 09/28/21 Range/Units 06:16 07:08 08:01 RBC (3.80-5.40) m/uL Hgb (11.4-16.0) gm/dL Hct (34.0-46.0) % Neutrophils # (1.3-7.7) k/uL Lymphocytes # (1.0-4.8) k/uL VBG pH (7.31-7.41) VBG pCO2 (37-51) mmHg VBG HCO3 (24-28) mmol/L Sodium (137-145) mmol/L Potassium (3.5-5.1) mmol/L Chloride (98-107) mmol/L Carbon Dioxide (22-30) mmol/L BUN (7-17) mg/dL Creatinine (0.52-1.04) mg/dL Glucose (74-99) mg/dL POC Glucose (mg/dL) 166 H 160 H 127 H (75-99) mg/dL Calcium (8.4-10.2) mg/dL Phosphorus (2.5-4.5) mg/dL Alkaline Phosphatase (38-126) U/L Albumin (3.5-5.0) g/dL Urine Protein (Negative) Urine Glucose (UA) (Negative) Urine Ketones (Negative) 09/28/21 09/28/21 Range/Units 09:07 10:02 RBC (3.80-5.40) m/uL Hgb (11.4-16.0) gm/dL Hct (34.0-46.0) % Neutrophils # (1.3-7.7) k/uL Lymphocytes # (1.0-4.8) k/uL VBG pH (7.31-7.41) VBG pCO2 (37-51) mmHg VBG HCO3 (24-28) mmol/L Sodium (137-145) mmol/L Potassium (3.5-5.1) mmol/L Chloride (98-107) mmol/L Carbon Dioxide (22-30) mmol/L BUN (7-17) mg/dL Creatinine (0.52-1.04) mg/dL Glucose (74-99) mg/dL POC Glucose (mg/dL) 116 H 102 H (75-99) mg/dL Calcium (8.4-10.2) mg/dL Phosphorus (2.5-4.5) mg/dL Alkaline Phosphatase (38-126) U/L Albumin (3.5-5.0) g/dL Urine Protein (Negative) Urine Glucose (UA) (Negative) Urine Ketones (Negative) Thrombosis Risk Factor Assmnt - Choose All That Apply Each Risk Factor Represents 2 Points: Age 61-74 years Thrombosis Risk Factor Assessment Total Risk Factor Score: 2 Thrombosis Risk Factor Assessment Level: Low Risk Assessment and Plan Assessment: ASSESSMENT Metabolic encephalopathy secondary to DKA Anion gap metabolic acidosis secondary to DKA Electrolyte abnormalities secondary to DKA Acute kidney injury History of atrial fibrillation History of thalamic stroke Obstructive sleep apnea Karis's thyroiditis Hyperlipidemia History of osteoporosis PLAN: Patient was started on insulin drip, gap is almost about to close. Urine analysis is negative for any UTI, blood cultures were drawn and will follow up on it. Chest x-ray looks clear. Patient's mentation is not back to her baseline yet. Will repeat a.m. labs. Further recommendations depending on the progress of the patient.
[2021-09-28 20:26] LABS: Glucose,Whole Blood 76 mg/dL (75-99)
[2021-09-28] MEDS: APIXABAN 5 MG TAB PO SCH (20:31)
[2021-09-28] MEDS ORDERED: INSULIN DETEMIR (LEVEMIR) 100 UNIT/ML SYR SQ SCH (21:00)
[2021-09-29] MEDS: SODIUM CHLORIDE 0.9% 1,000 ML IV SCH (03:04)
[2021-09-29 06:07] LABS: Glucose,Whole Blood 68 mg/dL (75-99)
[2021-09-29 06:26] LABS: Glucose,Whole Blood 75 mg/dL (75-99)
[2021-09-29] MEDS: INSULIN ASPART (NovoLOG) 100 UNIT/ML VIAL SQ SCH ×4 (06:29→20:25)
[2021-09-29] MEDS: PANTOPRAZOLE 40 MG TABLET PO SCH (06:30)
--- NOTE | 2021-09-29 07:54 | P.PN ---
Subjective Progress Note Date: 09/29/21 This is a 66-year-old here patient known history of diabetes mellitus maintained on Levemir insulin 10 units twice a day along with NovoLog according to his scale on outpatient basis, patient came into the emergency department because of altered mentation. She was found to be confused and disoriented. According to the family, the patient had a recent fall and we are uncertain if she had any head injury. According to the MS Contin blood sugar was above 400 at the scene. The patient was able to tell her name and follows some simple commands. Otherwise she was disoriented. She was brought into the emergency department and the patient was found to have no nuchal rigidity, no fever, tachycardic, normotensive although the blood pressure itself was rather soft. EKG showed a sinus rhythm no active disease and the patient was found to have severe anion gap metabolic acidosis. The serum bicarb is 5 with a sodium of 129 and potassium level of 5.8 with a chloride of 89. The patient's blood sugar was 693. White count was at 9.5 with a hemoglobin of 13.3. The patient accordingly that admitted intensive care unit. Correlation profile was normal. Urine toxin was negative. The UA showed +4 glucose +3 ketones, anion gap initially was at 35. TSH was up to 1.94 with albumin of 4.8 and a total protein of 7.6. Urine drug screen was negative. Urine acetone was positive, serum acetone was positive, serum alcohol level was less than 10. VBG showed a pH of 7.19 with a pCO2 of 15. CAT scan of the brain showed mild atrophy, old lacunar infarct involving the thalamus. In terms of comorbid conditions, the patient is known to have chronic atrial fibrillation, previous history of CVA, diabetes mellitus, obstructive sleep apnea, Karis's thyroiditis with hypothyroidism. The patient has received 2 L of IV fluids in the emergency department and form of normal saline. The patient received another liter in the ICU. Currently is on insulin drip at 0.1 units an hour. She is also on D5 half-normal saline at the rate of 150 mL an hour. Most recent blood sugar is 160. Her mentation is gradually improving. Acute kidney injury is also improving and the creatinine is down to 1.27 from 1.85, most recent anion gap is down to 16. Elevation of 09/29/2021, the patient remains confused and that sometimes last a situation where she pulled out and IVs. Nevertheless, she seems to be much more alert and awake compared to yesterday. She is communicating. The labs from this morning are still pending. Based on the most recent labs from yesterday, her anion gap closed and her anion gap was down to 6 and the serum bicarb was up to 18. Blood sugar remains quite labile and the patient is having some episodes where the blood sugar dropped down to as low as 68. At this point in time, she is having a breakfast. Her current Levemir 10 units twice a day which is going to be reduced to once a day based on some episodes of hypoglycemia. He is also on IV fluids normal saline at the rate of 1 50 mL an hour. She is afebrile. No neck stiffness. Moving all 4 extremities. Cardiac rhythm is sinus. She did convert into atrial fibrillation earlier this morning. Nevertheless, the patient's rate is controlled at this point in time. She is on long-term and to coagulation with Eliquis regarding paroxysmal nature fibrillation. Objective - Vital Signs Vital signs: Vital Signs Temp 98.4 F 09/29/21 04:00 Pulse 83 09/29/21 07:00 Resp 15 09/29/21 07:00 BP 103/61 09/29/21 07:00 Pulse Ox 98 09/29/21 06:00 Intake & Output 09/28/21 09/29/21 09/29/21 18:59 06:59 18:59 Intake Total 1159.709 0282 150 Output Total 800 515 90 Balance 8524.243 5465 60 Weight 60.1 kg 63.3 kg Intake: IV 1000 D5-0.45% NaCl with KCl 1000 20Meq/l 1,000 ml @ 150 mls/hr IV .[id number] [facility] Rx# :[id number] Intake, IV Titration 051.674 0110 150 Amount Insulin Regular 100 unit 50.043 In Sodium Chloride 0.9% 100 ml @ 0.1 UNITS/KG/HR 6.185 mls/hr IV .[id number] [facility] Rx#:[id number] Potassium Phosphate 10 500 mmol In Sodium Chloride 0 .9% 250 ml @ 125 mls/hr IV Q2H [facility] Rx#:[id number] Sodium Chloride 0.9% 1, 300 1650 150 000 ml @ 150 mls/hr IV . Q6H40M [facility] Rx#:[id number] Output: Urine 800 515 90 Uretheral (Buck) 250 Other: Voiding Method Indwelling Catheter Indwelling Catheter # Voids 0 - Exam Past the patient is lethargic, comfortable, following some simple commands. She is super confused. Head exam was generally normal. There was no scleral icterus or corneal arcus. Mucous membranes were moist. Neck was supple and without jugular venous distension, thyromegaly, or carotid bruits. Carotids were easily palpable bilaterally. There was no adenopathy. Lungs were clear to auscultation and percussion, and with normal diaphragmatic excursion. No wheezes or rales were noted. Cardiac exam revealed the PMI to be normally situated and sized. The rhythm was regular and no extrasystoles were noted during several minutes of auscultation. The first and second heart sounds were normal and physiologic splitting of the second heart sound was noted. There were no murmurs, rubs, clicks, or gallops. Abdominal exam revealed normal bowel sounds. The abdomen was soft, non-tender, and without masses, organomegaly, or appreciable enlargement of the abdominal aorta. Examination of the extremities revealed easily palpable radial, femoral and pedal pulses. There was no cyanosis, clubbing or edema. Examination of the skin revealed no evidence of significant rashes, suspicious appearing nevi or other concerning lesions. Neurologically the patient is encephalopathic and the patient is moving all 4 e xtremities without any limitation. There was a cardiac to light. No seizure activity. Some restlessness. No agitation. - Labs CBC & Chem 7: 09/28/21 04:55 09/28/21 12:39 Labs: Abnormal Lab Results - Last 24 Hours (Table) 09/28/21 09/28/21 09/28/21 Range/Units 08:01 09:07 10:02 Sodium (137-145) mmol/L Chloride (98-107) mmol/L Carbon Dioxide (22-30) mmol/L BUN (7-17) mg/dL Glucose (74-99) mg/dL POC Glucose (mg/dL) 127 H 116 H 102 H (75-99) mg/dL 09/28/21 09/28/21 09/28/21 Range/Units 12:39 14:37 16:41 Sodium 136 L (137-145) mmol/L Chloride 110 H (98-107) mmol/L Carbon Dioxide 18 L (22-30) mmol/L BUN 25 H (7-17) mg/dL Glucose 110 H (74-99) mg/dL POC Glucose (mg/dL) 239 H 267 H (75-99) mg/dL 09/29/21 Range/Units 06:05 Sodium (137-145) mmol/L Chloride (98-107) mmol/L Carbon Dioxide (22-30) mmol/L BUN (7-17) mg/dL Glucose (74-99) mg/dL POC Glucose (mg/dL) 68 L (75-99) mg/dL Microbiology - Last 24 Hours (Table) 09/27/21 20:07 Blood Culture - Preliminary Blood No Growth after 24 hours Assessment and Plan Plan: 1 acute DKA with severe anion gap metabolic acidosis , recovered, nevertheless, morning labs have not been done and are still pending for now. The last electrolytes measurement showed closure of the DKA and anion gap. Nevertheless, the patient is running a lower blood sugar this morning. Levemir was started at 10 units twice a day and this was reduced to once a day along with a coverage with meal. 2 diabetes mellitus maintained on Levemir insulin outpatient basis at 10 units twice a day in addition to NovoLog according to his scale, reduce the dose to Levemir 10 units once a day and monitor the electrolytes and avoid any bouts of hypoglycemia 3 altered mental status secondary to above, improved yet not totally recovered. The patient has some degree of underlying confusion without any focal neurological deficit. CAT scan of the brain was not showing any acute abnor malities. Suspect ongoing encephalopathy related to DKA. 4 metabolic derangements secondary to DKA. 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 The patient's rate is controlled. The patient on long-term and coagulation with Eliquis. Plan Monitor mental status did not completely normalized. We'll monitor the mental status. Consider underlying metabolic encephalopathy that is lingering around p ost DKA. CAT scan of the brain was negative. No focal neurological deficit. Swallow mechanism is normal and the patient is able to swallow appropriately. Clinically the patient is improving as the patient's metabolic derangements Allow diet Check home medications Reduce the Levemir dose to 10 units once a day along with a sliding scale coverage. Avoid hypoglycemic events We'll check the morning labs and subsequently the patient can be transferred out of the intensive care unit today. We'll continue to follow.
[2021-09-29 08:23] LABS: Basophils % (A) 0 %; Eosinophils % (A) 0 %; HCT 27.5 % (34.0-46.0); HGB 9.4 gm/dL (11.4-16.0); Lymphocytes # (A) 1.1 k/uL (1.0-4.8); Lymphocytes % (A) 21 %; MCH 31.2 pg (25.0-35.0); MCHC 34.3 g/dL (31.0-37.0); MCV 90.8 fL (80.0-100.0); Mean Platelet Volume 8.4; Monocytes # (A) 0.3 k/uL (0-1.0); Monocytes % (A) 6 %; Neutrophils # (A) 3.6 k/uL (1.3-7.7); Neutrophils % (A) 71 %; Platelet Count 159 k/uL (150-450); RBC 3.03 m/uL (3.80-5.40); RDW 13.2 % (11.5-15.5)
[2021-09-29 08:28] LABS: ALT 8 U/L (4-34); AST 17 U/L (14-36); African American GFR (CKD) >90 (>60 ml/min/1.73 sqM); Albumin 2.7 g/dL (3.5-5.0); Alkaline Phosphatase 25 U/L (38-126); Anion Gap 10 mmol/L; Blood Urea Nitrogen 14 mg/dL (7-17); Calcium 8.7 mg/dL (8.4-10.2); Carbon Dioxide 16 mmol/L (22-30); Chloride 112 mmol/L (98-107); Glucose 55 mg/dL (74-99); Non-African American GFR(CKD) >90 (>60 ml/min/1.73 sqM); Potassium 3.5 mmol/L (3.5-5.1); Sodium 138 mmol/L (137-145); Total Bilirubin 0.3 mg/dL (0.2-1.3); Total Protein 5.3 g/dL (6.3-8.2)
[2021-09-29] MEDS: APIXABAN 5 MG TAB PO SCH ×2 (08:47→20:25)
[2021-09-29] MEDS: ATORVASTATIN 20 MG TAB PO SCH (08:47)
[2021-09-29] MEDS ORDERED: INSULIN DETEMIR (LEVEMIR) 100 UNIT/ML SYR SQ SCH (09:00)
[2021-09-29] MEDS ORDERED: POTASSIUM CHLORIDE ER 20 MEQ TAB.ER PO SCH (09:00)
[2021-09-29 11:58] LABS: Glucose,Whole Blood 163 mg/dL (75-99)
[2021-09-29 13:47] LABS: African American GFR (CKD) >90 (>60 ml/min/1.73 sqM); Anion Gap 7 mmol/L; Blood Urea Nitrogen 9 mg/dL (7-17); Calcium 8.5 mg/dL (8.4-10.2); Carbon Dioxide 21 mmol/L (22-30); Chloride 107 mmol/L (98-107); Glucose 188 mg/dL (74-99); Non-African American GFR(CKD) >90 (>60 ml/min/1.73 sqM); Sodium 135 mmol/L (137-145)
[2021-09-29 18:07] LABS: Glucose,Whole Blood 63 mg/dL (75-99)
[2021-09-29 18:31] LABS: Glucose,Whole Blood 71 mg/dL (75-99)
[2021-09-29] MEDS: ASPIRIN 81 MG PO SCH (18:39)
[2021-09-29] MEDS: FOLIC ACID 1 MG TAB PO SCH (19:05)
[2021-09-29] MEDS: MULTIVITAMINS, THERA 1 EACH TAB PO SCH (19:06)
[2021-09-29] MEDS: THIAMINE 100 MG TAB PO SCH (19:06)
--- NOTE | 2021-09-29 19:56 | PN ---
PROGRESS NOTE DATE OF SERVICE: 09/29/2021. This 66-year-old woman who was admitted with acute diabetic ketoacidosis is being closely monitored in ICU at this time. The patient was given IV insulin drip. The gap has closed, but the patient still has some mild persistent acidosis, remnant from the previous acidosis. The pH was very low yesterday, but the patient is being closely monitored at this time. The patient also had some confusion. The patient apparently is rather noncompliant with the insulins at home, and Charging [employer] are also being consulted for complete evaluation. CT brain was also done during the time of admission, which I reviewed. It showed only mild atrophy with old lacunar infarct in the left thalamus, which could be a factor in the patient's poor decision-making at this time. Past medical history reviewed. REVIEW OF SYSTEMS: CARDIOVASCULAR SYSTEM: No angina. RESPIRATION: No cough, hemoptysis. GI: No nausea, vomiting. : ntd NERVOUS SYSTEM: As mentioned earlier. CURRENT MEDICATIONS: Reviewed. They include Lipitor, NovoLog, Levemir 10 units subcutaneously daily and supplementation, Protonix. PHYSICAL EXAMINATION: Patient is alert, oriented x2. Pulse is 81, blood pressure 105/59, respiration 19, temperature normal, pulse ox 96% on room air. HEENT: Conjunctivae normal. NECK: No jugular venous distention. CARDIOVASCULAR: S1, S2 muffled. RESPIRATION: Breath sounds diminished at the bases. A few scattered rhonchi. ABDOMEN: Soft, nontender. LEGS: No edema. No swelling. NERVOUS SYSTEM: Diffusely weak. LABS: WBC 5, hemoglobin 9.4. Sodium 135. ASSESSMENT: 1. Diabetic ketoacidosis, acute, with uncontrolled diabetes mellitus, type 2, with hyperglycemia. 2. Noncompliance with medications. 3. Acute anion gap metabolic acidosis, present on admission. 4. Acute kidney injury, present on admission. 5. Hyponatremia. 6. Hyperkalemia. 7. Acute renal failure, acute tubular necrosis, present on admission. 8. Hypercalcemia, present on admission, secondary to dehydration possibly. 9. Anemia, normocytic anemia of chronic disease. 10.Change in mental status, acute metabolic encephalopathy, with a small left thalamic or lacunar infarct. 11.Atrial fibrillation history. 12.History of gastroesophageal reflux disease. 13.History of sleep apnea. 14.History of bariatric surgery. 15.Cholecystectomy. 16.FULL CODE. RECOMMENDATIONS AND DISCUSSION: In this 66-year-old woman who presented with multiple complex medical issues, we will monitor the patient closely, continue the current medications, continue symptomatic treatment. We will monitor blood sugars closely. The patient had some slight worsening of the acidosis; however, the CO2 seems to be correcting at this time at 21. Will continue to monitor. 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 Supplement vitamins. CT scan noted. I would also recommend antiplatelet agents. Continue to monitor. Guarded prognosis. Further recommendations to follow. See orders for details. Continue with Lipitor. MMODL / IJN: [id number] / MTDD
[2021-09-29 20:04] LABS: Glucose,Whole Blood 110 mg/dL (75-99)
[2021-09-30 03:42] LABS: Glucose,Whole Blood 77 mg/dL (75-99)
[2021-09-30 06:27] LABS: Basophils % (A) 0 %; Eosinophils # (A) 0.1 k/uL (0-0.7); Eosinophils % (A) 2 %; HCT 34.7 % (34.0-46.0); HGB 11.6 gm/dL (11.4-16.0); Lymphocytes # (A) 0.8 k/uL (1.0-4.8); Lymphocytes % (A) 25 %; MCH 30.2 pg (25.0-35.0); MCHC 33.5 g/dL (31.0-37.0); MCV 90.1 fL (80.0-100.0); Mean Platelet Volume 7.8; Monocytes # (A) 0.2 k/uL (0-1.0); Monocytes % (A) 6 %; Neutrophils % (A) 65 %; Platelet Count 184 k/uL (150-450); RBC 3.85 m/uL (3.80-5.40); RDW 12.5 % (11.5-15.5); WBC 3.1 k/uL (3.8-10.6)
[2021-09-30 07:30] LABS: Glucose,Whole Blood 187 mg/dL (75-99)
[2021-09-30] MEDS: MULTIVITAMINS, THERA 1 EACH TAB PO SCH (09:03)
[2021-09-30] MEDS: THIAMINE 100 MG TAB PO SCH (09:03)
[2021-09-30] MEDS: APIXABAN 5 MG TAB PO SCH ×2 (09:03→20:51)
[2021-09-30] MEDS: FOLIC ACID 1 MG TAB PO SCH (09:04)
[2021-09-30] MEDS: ATORVASTATIN 20 MG TAB PO SCH (09:04)
[2021-09-30] MEDS: ASPIRIN 81 MG PO SCH (09:05)
[2021-09-30] MEDS: INSULIN DETEMIR (LEVEMIR) 100 UNIT/ML SYR SQ SCH (09:08)
[2021-09-30] MEDS: INSULIN ASPART (NovoLOG) 100 UNIT/ML VIAL SQ SCH ×4 (09:08→20:51)
[2021-09-30] MEDS: PANTOPRAZOLE 40 MG TABLET PO SCH (09:15)
[2021-09-30 12:00] LABS: Glucose,Whole Blood 174 mg/dL (75-99)
[2021-09-30 12:40] LABS: African American GFR (CKD) 103.2 (60.0-200.0); Anion Gap 11.2 mmol/L (4.00-12.00); BUN/Creat Ratio 6.43 Ratio (12.00-20.00); Blood Urea Nitrogen 4.5 mg/dL (9.0-27.0); Calcium 8.7 mg/dL (8.7-10.3); Carbon Dioxide 21.8 mmol/L (21.6-31.8); Potassium 3.3 mmol/L (3.5-5.5)
[2021-09-30 17:13] LABS: Glucose,Whole Blood 106 mg/dL (75-99)
[2021-09-30] MEDS ORDERED: Potassium Replacement Protocol 1 EACH MISC MISCELLANE PRN ×2 (18:28→19:50)
[2021-09-30] MEDS ORDERED: Magnesium Replacement Protocol 1 EACH MISC MISCELLANE PRN (19:50)
[2021-09-30 20:08] LABS: Glucose,Whole Blood 172 mg/dL (75-99)
[2021-09-30] MEDS: POTASSIUM CHLORIDE ER 20 MEQ TAB.ER PO SCH ×2 (20:52→22:18)
--- NOTE | 2021-09-30 21:28 | PN ---
PROGRESS NOTE DATE OF SERVICE: 09/30/2021 This 66-year-old woman admitted with diabetic ketosis is being closely monitored. Patient is extremely weak. Patient has a history of noncompliance in the past and very poor social support also. ECF rehab is also being considered. No chest pain. No palpitations. No fever. PHYSICAL EXAMINATION: Alert and oriented x2. Pulse is 91, blood pressure 120/73, respirations 16, temperature 97.9, pulse ox 94% on room air. Patient is mildly confused. HEENT: Conjunctivae normal. NECK: No jugular venous distention. CARDIOVASCULAR: S1, S2 muffled. RESPIRATION: Breath sounds diminished at the bases. ABDOMEN: Soft. NERVOUS SYSTEM: Mild diffuse weakness. LABS: WBC 3.1, sodium 130, potassium 3.3. Accu-Cheks are noted. ASSESSMENT: 1. Diabetic ketoacidosis, acute, with uncontrolled diabetes mellitus, type 2, with hyperglycemia. 2. Change in mental status, acute metabolic encephalopathy, multifactorial. 3. Noncompliance with medications. 4. Acute anion gap metabolic acidosis, present on admission. 5. Acute kidney injury, present on admission. 6. Hyponatremia. 7. Hyperkalemia. 8. Acute renal failure with acute tubular necrosis, present on admission. 9. Hypercalcemia, present on admission, secondary to dehydration possibly. 10.Anemia, normocytic anemia of chronic disease. 11.Change in mental status, acute metabolic encephalopathy with a small left thalamic lacunar infarct. 12.Atrial fibrillation history. 13.History of gastroesophageal reflux disease. 14.History of sleep apnea. 15.History of bariatric surgery. 16.Cholecystectomy. 17.FULL CODE. RECOMMENDATIONS AND DISCUSSION: I recommend to continue current medications, continue with symptomatic treatment. Continue with insulin. PT/OT evaluation. Possible ECF rehab. Guarded prognosis because of multiple complex medical issues. Further recommendations to follow. MMODL / IJN: [id number] /
[2021-10-01 02:04] LABS: Glucose,Whole Blood 151 mg/dL (75-99)
[2021-10-01 08:13] LABS: Glucose,Whole Blood 231 mg/dL (75-99)
[2021-10-01] MEDS: INSULIN DETEMIR (LEVEMIR) 100 UNIT/ML SYR SQ SCH (09:40)
[2021-10-01] MEDS: INSULIN ASPART (NovoLOG) 100 UNIT/ML VIAL SQ SCH ×2 (09:40→12:58)
[2021-10-01] MEDS: PANTOPRAZOLE 40 MG TABLET PO SCH (09:41)
[2021-10-01] MEDS: ASPIRIN 81 MG PO SCH (09:41)
[2021-10-01] MEDS: THIAMINE 100 MG TAB PO SCH (09:41)
[2021-10-01] MEDS: MULTIVITAMINS, THERA 1 EACH TAB PO SCH (09:41)
[2021-10-01] MEDS: APIXABAN 5 MG TAB PO SCH (09:41)
[2021-10-01] MEDS: ATORVASTATIN 20 MG TAB PO SCH (09:41)
[2021-10-01] MEDS: FOLIC ACID 1 MG TAB PO SCH (09:41)
[2021-10-01] MEDS ORDERED: CITALOPRAM HYDROBROMIDE 10 MG TAB PO SCH (11:30)
[2021-10-01 12:17] LABS: Glucose,Whole Blood 279 mg/dL (75-99)
[2021-10-01 13:17] VITALS: BP 106/65; PULSE 100; RESP 16; TEMP 98
--- NOTE | 2021-10-01 15:23 | P.DS ---
Providers Date of admission: 09/27/21 22:44 Expected date of discharge: 10/01/21 Attending physician: Amee Polanco Consults: 09/27/21 22:44 Consult Physician Stat Consulting Provider: Gabriel Ramos Reason/Comments: Diabetic ketoacidosis, altered mental status Do you want consulting provider notified?: Already Contacted Primary care physician: Stated None Hospital Course: Final diagnosis Diabetic ketoacidosis, acute with uncontrolled diabetes mellitus type 2 with hyperglycemia Change in mental status, acute metabolic encephalopathy, multifactorial Noncompliance of medications Acute anion gap metabolic acidosis, present on admission Acute kidney injury, present on admission Hyponatremia Hyperkalemia acute renal failure with acute tubular necrosis, present on admission Hypercalcemia, present on admission, secondary to dehydration possibly Anemia, normocytic anemia of chronic disease change in mental status, acute metabolic encephalopathy with a small left l acunar infarct Atrial fibrillation history History of gastroesophageal reflux disease history of sleep apnea history of bariatric surgery cholecystectomy Full code Discharge disposition Patient is being discharged in a stable condition with guarded prognosis to home with [facility]. Patient will follow-up with [facility] upon discharge. Patient will need follow-up with endocrine Dr. Villa along with counseling services through the [facility]. Total time taken is greater than 35 minutes. Hospital course This is a 66-year-old female who was recently admitted with diabetic ketoacidosi s and being closely monitored. Patient was extremely weak requiring assistance and evaluated by PT/OT therapy recommending subacute rehab. Patient continued to show improvement and did not qualify for ECF and will go home with daughter with continued home care and arrange for physical therapy in the outpatient setting. Patient has poor social support and history of noncompliance with medications. Patient also encouraged to continue sliding scale and Accu-Cheks before meals and at bedtime and close monitoring and continue with long-acting insulin as well. Referral was placed to follow up with endocrine in the outpatient setting. Patient also having some depression and denies any suicidal ideation or thoughts to harm herself or others and will start low-dose Celexa and instructed the patient to follow-up with the [facility] for psychiatric services and counseling. Daughter will be taking the patient home and arrangements being made for home care in the outpatient setting. Currently no reports of chest pain, shortness of breath, or palpitations. Patient is afebrile. No reports of nausea or vomiting and patient is tolerating diet. Family will be discharged home with home care today. Guarded prognosis. On exam vital signs are stable. Cardio S1, S2 are muffled. Respiratory shows diminished breath sounds at the bases with no wheezing or rhonchi noted. Abdomen is soft and nontender. Nervous system shows no focal deficits. Please refer to medication reconciliation sheet for a list of medications. Patient Condition at Discharge: Stable Plan - Discharge Summary Discharge Rx Participant: Yes New Discharge Prescriptions: New Aspirin 81 mg PO DAILY 30 Days #30 tab Citalopram Hydrobromide [CeleXA] 10 mg PO DAILY 30 Days #30 tab Insulin Detemir (Levemir) [Levemir] 8 unit SQ DAILY@0700 ml Folic Acid 1 mg PO DAILY #30 tablet Multivitamins, Thera [Multivitamin] 1 tab PO DAILY #30 tablet Thiamine [Vitamin B-1] 100 mg PO DAILY #30 tablet Continue Pantoprazole Sodium [Protonix] 40 mg PO DAILY #30 tablet. Apixaban [Eliquis] 5 mg PO BID #60 tab Atorvastatin [Lipitor] 20 mg PO DAILY Alendronate Sodium [Fosamax] 70 mg PO Q7D INSULIN ASPART (NovoLOG) [NovoLOG (formulary)] See Protocol SQ ACHS Sodium Chloride 5% Ophth Oint [Briseida 128] 1 applic LEFT EYE HS Polyvinyl Alcohol/Povidone [Freshkote Eye Drop] 1 applic BOTH EYES QID Discontinued Metoprolol Tartrate [Lopressor] 25 mg PO BID Insulin Detemir (Levemir) [Levemir] 10 unit SQ BID #0 Discharge Medication List Polyvinyl Alcohol/Povidone [Freshkote Eye Drop] 1 applic BOTH EYES QID 04/22/21 [History] Sodium Chloride 5% Ophth Oint [Briseida 128] 1 applic LEFT EYE HS 04/22/21 [History] Apixaban [Eliquis] 5 mg PO BID #60 tab 05/19/21 [Rx] Pantoprazole Sodium [Protonix] 40 mg PO DAILY #30 tablet. 05/19/21 [Rx] Alendronate Sodium [Fosamax] 70 mg PO Q7D 09/27/21 [History] Atorvastatin [Lipitor] 20 mg PO DAILY 09/27/21 [History] INSULIN ASPART (NovoLOG) [NovoLOG (formulary)] See Protocol SQ ACHS 09/27/21 [ History] Aspirin 81 mg PO DAILY 30 Days #30 tab 10/01/21 [Rx] Citalopram Hydrobromide [CeleXA] 10 mg PO DAILY 30 Days #30 tab 10/01/21 [Rx] Folic Acid 1 mg PO DAILY #30 tablet 10/01/21 [Rx] Insulin Detemir (Levemir) [Levemir] 8 unit SQ DAILY@0700 ml 10/01/21 [Rx] Multivitamins, Thera [Multivitamin] 1 tab PO DAILY #30 tablet 10/01/21 [Rx] Thiamine [Vitamin B-1] 100 mg PO DAILY #30 tablet 10/01/21 [Rx] Follow up Appointment(s)/Referral(s): TANYA NOLAND [Other] - 1 Week Addison Villa MD [REFERRING] - 1 Week [facility] [REFERRING] - 1-2 Days (Please call to make appointment. Office not answering phone at this time.) Patient Instructions/Handouts: Diabetic Ketoacidosis (DC), Weakness (DC) Activity/Diet/Wound Care/Special Instructions: Activity Limited until follow-up Follow-up with primary care provider on discharge Follow-up outpatient with [facility] Continue taking medications as prescribed A she to follow up with endocrine outpatient for tighter glycemic control Continue with consistent carb diet Continue with Accu-Cheks before meals and at bedtime and keep a diary for primary care follow-up Continue with long acting insulin of 8 units daily along with sliding scale NovoLog sliding scale 0-150 equals 0 units 151-200 equals 2 units 201-250 equals 4 units 251-300 equals 6 units 301-350 equals 8 units 351-400 equals 10 units Please notify provider if blood sugar is 400 or above Discharge Disposition: HOME WITH HOME HEALTH SERVICES
== END 2021-10-01 13:53 | disposition home health service (06) | DRG 64 ==
LOC: EC 19:16 → 2SICU 22:44 → 5NMEDONC 09-29 16:06
PROVIDERS: ADMIT Hospitalist; ATTEND Hospitalist
PROC: 05HC33Z Insertion of Infusion Device into Left Basilic Vein, Percutaneous Approach (ICD-10-PCS; principal; 2021-09-28 16:25)
DX: I63.81 Other cerebral infarction due to occlusion or stenosis of small artery (principal); E11.10 Type 2 diabetes mellitus with ketoacidosis without coma; N17.0 Acute kidney failure with tubular necrosis; G93.41 Metabolic encephalopathy; I48.20 Chronic atrial fibrillation, unspecified; E87.1 Hypo-osmolality and hyponatremia; D63.8 Anemia in other chronic diseases classified elsewhere; Z20.822 Contact with and (suspected) exposure to COVID-19; K21.9 Gastro-esophageal reflux disease without esophagitis; E06.3 Autoimmune thyroiditis; E78.5 Hyperlipidemia, unspecified; E86.0 Dehydration; G47.33 Obstructive sleep apnea (adult) (pediatric); E83.52 Hypercalcemia; E87.5 Hyperkalemia; M81.0 Age-related osteoporosis without current pathological fracture; F32.9 Major depressive disorder, single episode, unspecified; Z91.14 Patient's other noncompliance with medication regimen; Z98.84 Bariatric surgery status; Z90.49 Acquired absence of other specified parts of digestive tract; Z63.8 Other specified problems related to primary support group; Z79.01 Long term (current) use of anticoagulants; Z79.4 Long term (current) use of insulin; Z79.83 Long term (current) use of bisphosphonates; Z79.899 Other long term (current) drug therapy; Z90.721 Acquired absence of ovaries, unilateral; Z86.73 Personal history of transient ischemic attack (TIA), and cerebral infarction without residual deficits; Z82.49 Family history of ischemic heart disease and other diseases of the circulatory system; Z98.890 Other specified postprocedural states
CPT/HCPCS: 36410; 36415; 70450; 71045; 76937; 80048; 80051; 80053; 80306; 80320; 81003; 82009; 82140; 82150; 82565; 82803; 82947; 83690; 83735; 83880; 84100; 84443; 84484; 84520; 85025; 85610; 85730; 87040; 87635; 93005; 96360; 96361; 99291

== ENCOUNTER 2022-01-15 17:34 | Observation (INO) | payer MEDICARE ==
[2022-01-15 17:37] LABS: Glucose,Whole Blood 55 mg/dL (75-99)
[2022-01-15] MEDS ORDERED: DEXTROSE 50% SYRINGE 50 ML IVP STA ×2 (17:50→21:16)
[2022-01-15] MEDS ORDERED: SODIUM CHLORIDE 0.9% 500 ML 500 ML IV STA (17:50)
[2022-01-15 18:15] LABS: Glucose,Whole Blood 107 mg/dL (75-99)
--- NOTE | 2022-01-15 18:24 | ED ---
General Adult HPI - General Chief complaint: Seizure Stated complaint: LOW BS,SEIZURE Time Seen by Provider: 01/15/22 17:46 Source: patient, family, EMS, RN notes reviewed, old records reviewed Mode of arrival: EMS Limitations: altered mental status - History of Present Illness Initial comments: 66 female presenting with hypoglycemia and generalized seizure. History is obtained from paramedics. The patient herself is unable to give a detailed history. She does not remember the events. There've been a seizure at home. There was no reported trauma. The patient's blood sugar was noted to be 50. She was given an amp of dextrose and transported to the emergency department. She is somewhat lethargic and unable to give detailed history. She is uncertain exactly what medication she is currently on. - Related Data Home Medications Medication Instructions Recorded Confirmed Polyvinyl Alcohol/Povidone 1 drop BOTH EYES QID 04/22/21 01/15/22 [Freshkote Eye Drop] Sodium Chloride 5% Ophth Oint 1 applic LEFT EYE HS 04/22/21 01/15/22 [Briseida 128] Alendronate Sodium [Fosamax] 70 mg PO Q7D 09/27/21 01/15/22 Atorvastatin [Lipitor] 20 mg PO HS 12/03/21 01/15/22 Calcium Carbonate/Vitamin D3 1 tab PO BID 12/03/21 01/15/22 [Calcium 500-Vit D3 5 Mcg (200 Iu)] Citalopram Hydrobromide [CeleXA] 20 mg PO DAILY 12/03/21 01/15/22 Metoprolol Tartrate [Lopressor] 12.5 mg PO BID 12/03/21 01/15/22 Insulin Aspart [NovoLOG Flexpen] See Protocol SQ ACHS 01/02/22 01/15/22 Previous Rx's Medication Instructions Recorded Apixaban [Eliquis] 5 mg PO BID #60 tab 05/19/21 Aspirin 81 mg PO DAILY 30 Days #30 tab 10/01/21 Folic Acid 1 mg PO DAILY #30 tablet 10/01/21 Multivitamins, Thera [Multivitamin 1 tab PO DAILY #30 tablet 10/01/21 (formulary)] Insulin Detemir [Levemir Flextouch 16 units SQ DAILY #1 each 01/02/22 Pen] Allergies Allergy/AdvReac Type Severity Reaction Status Date / Time Penicillins Allergy Unknown Verified 01/15/22 19:42 Review of Systems ROS Statement: Those systems with pertinent positive or pertinent negative responses have been documented in the HPI. ROS Other: All systems not noted in ROS Statement are negative. 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 Needs to use a child's one. mother has diff coming out Past Psychological History: No Psychological Hx Reported Smoking Status: Never smoker Past Alcohol Use History: None Reported Past Drug Use History: None Reported - Past Family History Mother Family Medical History: Thyroid Disorder Additional Family Medical History / Comment(s): thyroid removed Father Family Medical History: Myocardial Infarction ([place]) General Exam Limitations: altered mental status General appearance: in no apparent distress, lethargic Head exam: Present: atraumatic, normocephalic Eye exam: Present: normal appearance, PERRL ENT exam: Present: normal exam Neck exam: Present: normal inspection. Absent: tenderness, meningismus Respiratory exam: Present: normal lung sounds bilaterally. Absent: respiratory distress, wheezes Cardiovascular Exam: Present: regular rate, normal rhythm GI/Abdominal exam: Present: soft. Absent: distended, tenderness, guarding Extremities exam: Present: normal inspection, normal capillary refill. Absent: pedal edema, calf tenderness Neurological exam: Present: alert, oriented X3, CN II-XII intact. Absent: motor sensory deficit Psychiatric exam: Present: normal affect, normal mood Skin exam: Present: warm, dry, intact. Absent: cyanosis, diaphoretic Course Vital Signs 01/15/22 17:37 Temperature 97.3 F L Pulse Rate 95 Respiratory 16 Rate Blood Pressure 133/72 O2 Sat by Pulse 98 Oximetry EKG Findings - EKG Comments: EKG Findings:: Sinus rhythm Tremor artifact, rate 91, AL interval 168, QRS duration 86, QTC 360, no ST segment elevation. Medical Decision Making - Medical Decision Making 66-year-old female with likely hypoglycemic seizure. Sugar is stabilized in the emergency department. Patient has a nonfocal neurologic exam. Her head CT is negative for intracranial hemorrhage or mass effect. Her labs are otherwise unremarkable. She remains somewhat postictal and will benefit from an observation period. Her blood sugar can be monitored. I did discuss case with Samantha ford for [facility], will admit. - Lab Data Result diagrams: 01/15/22 18:20 01/15/22 18:20 Lab Results 01/15/22 01/15/22 01/15/22 Range/Units 17:36 18:14 18:20 WBC 3.1 L (3.8-10.6) k/uL RBC 3.38 L (3.80-5.40) m/uL Hgb 11.3 L (11.4-16.0) gm/dL Hct 33.2 L (34.0-46.0) % MCV 98.3 (80.0-100.0) fL MCH 33.4 (25.0-35.0) pg MCHC 34.0 (31.0-37.0) g/dL RDW 12.6 (11.5-15.5) % Plt Count 182 (150-450) k/uL MPV 7.5 Neutrophils % 73 % Lymphocytes % 18 % Monocytes % 7 % Eosinophils % 1 % Basophils % 0 % Neutrophils # 2.3 (1.3-7.7) k/uL Lymphocytes # 0.6 L (1.0-4.8) k/uL Monocytes # 0.2 (0-1.0) k/uL Eosinophils # 0.0 (0-0.7) k/uL Basophils # 0.0 (0-0.2) k/uL Sodium (137-145) mmol/L Potassium (3.5-5.1) mmol/L Chloride (98-107) mmol/L Carbon Dioxide (22-30) mmol/L Anion Gap mmol/L BUN (7-17) mg/dL Creatinine (0.52-1.04) mg/dL Est GFR (CKD-EPI)AfAm (>60 ml/min/1.73 sqM) Est GFR (CKD-EPI)NonAf (>60 ml/min/1.73 sqM) Glucose (74-99) mg/dL POC Glucose (mg/dL) 55 L 107 H (75-99) mg/dL POC Glu Control Area Operator ID Shelly Miranda Molly Calcium (8.4-10.2) mg/dL Magnesium (1.6-2.3) mg/dL Total Bilirubin (0.2-1.3) mg/dL AST (14-36) U/L ALT (4-34) U/L Alkaline Phosphatase (38-126) U/L Total Protein (6.3-8.2) g/dL Albumin (3.5-5.0) g/dL 01/15/22 01/15/22 Range/Units 18:20 18:20 WBC (3.8-10.6) k/uL RBC (3.80-5.40) m/uL Hgb (11.4-16.0) gm/dL Hct (34.0-46.0) % MCV (80.0-100.0) fL MCH (25.0-35.0) pg MCHC (31.0-37.0) g/dL RDW (11.5-15.5) % Plt Count (150-450) k/uL MPV Neutrophils % % Lymphocytes % % Monocytes % % Eosinophils % % Basophils % % Neutrophils # (1.3-7.7) k/uL Lymphocytes # (1.0-4.8) k/uL Monocytes # (0-1.0) k/uL Eosinophils # (0-0.7) k/uL Basophils # (0-0.2) k/uL Sodium 137 (137-145) mmol/L Potassium 3.4 L (3.5-5.1) mmol/L Chloride 104 (98-107) mmol/L Carbon Dioxide 24 (22-30) mmol/L Anion Gap 9 mmol/L BUN 16 (7-17) mg/dL Creatinine 0.67 (0.52-1.04) mg/dL Est GFR (CKD-EPI)AfAm >90 (>60 ml/min/1.73 sqM) Est GFR (CKD-EPI)NonAf >90 (>60 ml/min/1.73 sqM) Glucose 187 H (74-99) mg/dL POC Glucose (mg/dL) (75-99) mg/dL POC Glu Control Area Operator ID Calcium 8.9 (8.4-10.2) mg/dL Magnesium 2.3 (1.6-2.3) mg/dL Total Bilirubin 0.4 (0.2-1.3) mg/dL AST 34 (14-36) U/L ALT 17 (4-34) U/L Alkaline Phosphatase 26 L (38-126) U/L Total Protein 6.8 (6.3-8.2) g/dL Albumin 3.9 (3.5-5.0) g/dL Disposition Clinical Impression: Dehydration, Generalized seizure, Hypoglycemia Disposition: ADMITTED IP TO THIS [facility] Condition: Stable Instructions (If sedation given, give patient instructions): Seizure/Epilepsy Discharge Instructions & Follow-Up Is patient prescribed a controlled substance at d/c from ED?: No Referrals: [facility],Clinic [Primary Care Provider] - 1-2 days Decision to Admit Reason: Admit from EC Decision Date: 01/15/22 Decision Time: 20:28
[2022-01-15 18:27] LABS: Basophils % (A) 0 %; Eosinophils % (A) 1 %; HCT 33.2 % (34.0-46.0); HGB 11.3 gm/dL (11.4-16.0); Lymphocytes # (A) 0.6 k/uL (1.0-4.8); Lymphocytes % (A) 18 %; MCH 33.4 pg (25.0-35.0); MCV 98.3 fL (80.0-100.0); Mean Platelet Volume 7.5; Monocytes # (A) 0.2 k/uL (0-1.0); Monocytes % (A) 7 %; Neutrophils # (A) 2.3 k/uL (1.3-7.7); Neutrophils % (A) 73 %; Platelet Count 182 k/uL (150-450); RBC 3.38 m/uL (3.80-5.40); RDW 12.6 % (11.5-15.5); WBC 3.1 k/uL (3.8-10.6)
[2022-01-15 18:35] LABS: ALT 17 U/L (4-34); AST 34 U/L (14-36); African American GFR (CKD) >90 (>60 ml/min/1.73 sqM); Albumin 3.9 g/dL (3.5-5.0); Alkaline Phosphatase 26 U/L (38-126); Anion Gap 9 mmol/L; Blood Urea Nitrogen 16 mg/dL (7-17); Calcium 8.9 mg/dL (8.4-10.2); Carbon Dioxide 24 mmol/L (22-30); Chloride 104 mmol/L (98-107); Glucose 187 mg/dL (74-99); Non-African American GFR(CKD) >90 (>60 ml/min/1.73 sqM); Potassium 3.4 mmol/L (3.5-5.1); Sodium 137 mmol/L (137-145); Total Bilirubin 0.4 mg/dL (0.2-1.3); Total Protein 6.8 g/dL (6.3-8.2)
--- NOTE | 2022-01-15 20:10 | CT ---
EXAMINATION TYPE: CT brain wo con DATE OF EXAM: 01/15/2022 COMPARISON: 09/27/2021 HISTORY: Seizure activity, AMS TECHNIQUE: CT scan of the head performed without contrast CT DLP: 1147.4 mGycm Automated exposure control for dose reduction was used. FINDINGS: Mild brain volume loss without significant change. Bilateral lacunar infarcts, greater on the left, n o significant change. No acute intracranial hemorrhage midline shift or mass effect. [place]-white matte r differentiation is preserved. No acute intraorbital, osseous or soft tissue abnormalities seen. Mild atherosclerotic changes in the bilateral intracranial ICA. Mucosal thickening in the ethmoid sinus. No air-fluid levels seen in the paranasal sinuses and mastoi d air cells. IMPRESSION: NO ACUTE INTRACRANIAL PROCESS. MILD MUCOSAL SINUS DISEASE. CHRONIC CHANGES DESCRIBED ABOVE, NO SIGNIFICANT CHANGE SINCE PRIOR.
[2022-01-15] MEDS ORDERED: NALOXONE 0.4 MG/ML 1 ML VIAL IV PRN (20:16)
[2022-01-15] MEDS ORDERED: ACETAMINOPHEN TAB 325 MG TAB PO PRN (20:16)
[2022-01-15 21:10] LABS: Glucose,Whole Blood 39 mg/dL (75-99)
[2022-01-15 21:12] LABS: Glucose,Whole Blood 39 mg/dL (75-99)
[2022-01-15] MEDS ORDERED: DEXTROSE 5%-0.9% NACL 1,000 ML IV SCH (21:15)
[2022-01-15 21:40] LABS: Glucose,Whole Blood 176 mg/dL (75-99)
[2022-01-15 22:32] LABS: Glucose,Whole Blood 131 mg/dL (75-99)
[2022-01-15] MEDS ORDERED: Potassium Replacement Protocol 1 EACH MISC MISCELLANE PRN (23:12)
[2022-01-15] MEDS ORDERED: POTASSIUM CHLORIDE ER 20 MEQ TAB.ER PO ONE (23:13)
[2022-01-16 00:29] LABS: Glucose,Whole Blood 136 mg/dL (75-99)
[2022-01-16 02:29] LABS: Glucose,Whole Blood 59 mg/dL (75-99)
[2022-01-16 02:43] LABS: Glucose,Whole Blood 55 mg/dL (75-99)
[2022-01-16 02:56] LABS: Glucose,Whole Blood 61 mg/dL (75-99)
[2022-01-16 03:09] LABS: Glucose,Whole Blood 267 mg/dL (75-99)
[2022-01-16] MEDS ORDERED: DEXTROSE 50% SYRINGE 50 ML IVP STA (03:12)
[2022-01-16 04:32] LABS: Glucose,Whole Blood 133 mg/dL (75-99)
[2022-01-16 04:57] LABS: Glucose,Whole Blood 121 mg/dL (75-99)
[2022-01-16 05:58] LABS: Glucose,Whole Blood 60 mg/dL (75-99)
[2022-01-16 06:13] LABS: Glucose,Whole Blood 64 mg/dL (75-99)
[2022-01-16] MEDS ORDERED: DEXTROSE 50% SYRINGE 50 ML IVP ONE ×2 (06:13→06:15)
[2022-01-16 06:25] LABS: Glucose,Whole Blood 150 mg/dL (75-99)
[2022-01-16 07:01] LABS: Glucose,Whole Blood 157 mg/dL (75-99)
[2022-01-16 08:01] LABS: Glucose,Whole Blood 182 mg/dL (75-99)
[2022-01-16 08:57] LABS: Glucose,Whole Blood 217 mg/dL (75-99)
[2022-01-16] MEDS ORDERED: FOLIC ACID 1 MG TAB PO SCH (09:00)
[2022-01-16] MEDS ORDERED: ASPIRIN 81 MG PO SCH (09:00)
[2022-01-16] MEDS ORDERED: CALCIUM CARB-VIT D 500 MG-5 MCG TAB PO SCH (09:00)
[2022-01-16] MEDS ORDERED: MULTIVITAMINS, THERA 1 EACH TAB PO SCH (09:00)
[2022-01-16] MEDS ORDERED: CITALOPRAM HYDROBROMIDE 20 MG TAB PO SCH (09:00)
[2022-01-16] MEDS ORDERED: METOPROLOL TARTRATE 12.5 MG TAB PO SCH (09:00)
[2022-01-16] MEDS ORDERED: APIXABAN 5 MG TAB PO SCH (09:00)
[2022-01-16] MEDS ORDERED: POTASSIUM CHLORIDE ER 20 MEQ TAB.ER PO STA (09:36)
--- NOTE | 2022-01-16 09:48 | P.DS ---
Providers Date of admission: 01/15/22 20:16 Attending physician: Amee Polanco Primary care physician: [facility] Hospital Course: Refer to my history of present illness for further details Patient Condition at Discharge: Stable Plan - Discharge Summary Discharge Rx Participant: No New Discharge Prescriptions: New Insulin Glargine,Hum.rec.anlog [Lantus Solostar Pen] 12 unit SQ DAILY #5 pen Discontinued Insulin Detemir [Levemir Flextouch Pen] 16 units SQ DAILY #1 each No Action Apixaban [Eliquis] 5 mg PO BID #60 tab Alendronate Sodium [Fosamax] 70 mg PO Q7D Aspirin 81 mg PO DAILY 30 Days #30 tab Metoprolol Tartrate [Lopressor] 12.5 mg PO BID Citalopram Hydrobromide [CeleXA] 20 mg PO DAILY Insulin Aspart [NovoLOG Flexpen] See Protocol SQ ACHS Sodium Chloride 5% Ophth Oint [Briseida 128] 1 applic LEFT EYE HS Polyvinyl Alcohol/Povidone [Freshkote Eye Drop] 1 drop BOTH EYES QID Folic Acid 1 mg PO DAILY #30 tablet Multivitamins, Thera [Multivitamin (formulary)] 1 tab PO DAILY #30 tablet Atorvastatin [Lipitor] 20 mg PO HS Calcium Carbonate/Vitamin D3 [Calcium 500-Vit D3 5 Mcg (200 Iu)] 1 tab PO BID Discharge Medication List Polyvinyl Alcohol/Povidone [Freshkote Eye Drop] 1 drop BOTH EYES QID 04/22/21 [History] Sodium Chloride 5% Ophth Oint [Briseida 128] 1 applic LEFT EYE HS 04/22/21 [History] Apixaban [Eliquis] 5 mg PO BID #60 tab 05/19/21 [Rx] Alendronate Sodium [Fosamax] 70 mg PO Q7D 09/27/21 [History] Aspirin 81 mg PO DAILY 30 Days #30 tab 10/01/21 [Rx] Folic Acid 1 mg PO DAILY #30 tablet 10/01/21 [Rx] Multivitamins, Thera [Multivitamin (formulary)] 1 tab PO DAILY #30 tablet 10/01/21 [Rx] Atorvastatin [Lipitor] 20 mg PO HS 12/03/21 [History] Calcium Carbonate/Vitamin D3 [Calcium 500-Vit D3 5 Mcg (200 Iu)] 1 tab PO BID 12/03/21 [History] Citalopram Hydrobromide [CeleXA] 20 mg PO DAILY 12/03/21 [History] Metoprolol Tartrate [Lopressor] 12.5 mg PO BID 12/03/21 [History] Insulin Aspart [NovoLOG Flexpen] See Protocol SQ ACHS 01/02/22 [History] Insulin Glargine,Hum.rec.anlog [Lantus Solostar Pen] 12 unit SQ DAILY #5 pen 01/16/22 [Rx] Follow up Appointment(s)/Referral(s): Addison Villa MD [REFERRING] - [address] [facility],Clinic [Primary Care Provider] - 3 Days Patient Instructions/Handouts: Seizure/Epilepsy Discharge Instructions & Follow-Up Discharge Disposition: HOME SELF-CARE
--- NOTE | 2022-01-16 09:48 | P.HPIM ---
History of Present Illness Patient is a 66-year-old female in with complains of possible seizures patient had a seizure-like activity excessive sweating which were witnessed by daughter. Patient subsequently became lethargic there is a no clear indication if she ever lost consciousness. Patient denied any bowel or bladder incontinence. Patient didn't have any tongue biting. Patient blood sugar is found to be 30 patient was given D5 was brought to ER. Patient usually takes Levemir 16 units in the morning patient did take during the time of breakfast 16 units. Patient didn't eat her lunch and didn't want to eat her lunch and then her blood sugars dropped which is a typical peak time for Levemir. Patient was later doesn't have any such symptoms at this time patient is doing well at this time. REVIEW OF SYSTEMS: CONSTITUTIONAL: No fever, no malaise, no fatigue. HEENT: No recent visual problems or hearing problems. Denied any sore throat. CARDIOVASCULAR: No chest pain, orthopnea, PND, no palpitations, no syncope. PULMONARY: No shortness of breath, no cough, no hemoptysis. GASTROINTESTINAL: No diarrhea, no nausea, no vomiting, no abdominal pain. NEUROLOGICAL: No headaches, no weakness, no numbness. HEMATOLOGICAL: Denies any bleeding or petechiae. GENITOURINARY: Denies any burning micturition, frequency, or urgency. MUSCULOSKELETAL/RHEUMATOLOGICAL: Denies any joint pain, swelling, or any muscle pain. ENDOCRINE: Denies any polyuria or polydipsia. The rest of the 14-point review of systems is negative. PHYSICAL EXAMINATION: GENERAL: The patient is alert and oriented x3, not in any acute distress. Well developed, well nourished. HEENT: Pupils are round and equally reacting to light. EOMI. No scleral icterus. No conjunctival pallor. Normocephalic, atraumatic. No pharyngeal erythema. No thyromegaly. CARDIOVASCULAR: S1 and S2 present. No murmurs, rubs, or gallops. PULMONARY: Chest is clear to auscultation, no wheezing or crackles. ABDOMEN: Soft, nontender, nondistended, normoactive bowel sounds. No palpable organomegaly. MUSCULOSKELETAL: No joint swelling or deformity. EXTREMITIES: No cyanosis, clubbing, or pedal edema. NEUROLOGICAL: Gross neurological examination did not reveal any focal deficits. SKIN: No rashes. Assessment and plan 1 hypoglycemia: Patient had some possible seizure-like activity which is secondary to hyperglycemia. Patient will be switched to Lantus. Lantus doesn't have any peaks patient appeared to have had hypoglycemia during the peak time of Levemir. We'll also cut down the dose of Lantus to 12 units patient at week closely monitored by primary care physician and possibly an stave inspector as she goes easily into DKA if she doesn't get enough insulin. Patient had a CT of the head which did not show any significant acute abnormality. Patient is presently on D5 which will be discontinued will monitor until evening make sure her blood sugars stay within normal limits before she can be discharged. If blood sugars stay above 100 without D5 and just on sliding scale patient will be discharged today. -History of proximal atrial fibrillation presently rate controlled on anti- correlation which will be continued -History of CVA TIA in the past patient is presently on Eliquis -Insulin-dependent evidence but is unsure whether it's type I-type II Hypogastrics visual reflux disease -Sleep apnea -Hypothyroidism Probably will be discharged later today Past Medical History Past Medical History: Atrial Fibrillation, CVA/TIA, Diabetes Mellitus, GERD/Reflux, Seizure Disorder, Sleep Apnea/CPAP/BIPAP, Thyroid Disorder Additional Past Medical History / Comment(s): no cpap used, arthritis, thyroid n odule, Karis disease, 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 Needs to use a child's one. mother has diff coming out Past Psychological History: No Psychological Hx Reported Additional Psychological History / Comment(s): Single but lives with adult children and grandchildren. Was in the stationed in the [employer] mostly in [place]. Denies international travel. No animals in the home. Does not live on a farm. Not noted to have a significant alcohol or recreational drug use Smoking Status: Never smoker Past Alcohol Use History: None Reported Past Drug Use History: None Reported - Past Family History Mother Family Medical History: Thyroid Disorder Additional Family Medical History / Comment(s): thyroid removed Father Family Medical History: Myocardial Infarction ([place]) Medications and Allergies Home Medications Medication Instructions Recorded Confirmed Type Polyvinyl Alcohol/Povidone 1 drop BOTH EYES QID 04/22/21 01/15/22 History [Freshkote Eye Drop] Sodium Chloride 5% Ophth Oint 1 applic LEFT EYE HS 04/22/21 01/15/22 History [Briseida 128] Apixaban [Eliquis] 5 mg PO BID #60 tab 05/19/21 01/15/22 Rx Alendronate Sodium [Fosamax] 70 mg PO Q7D 09/27/21 01/15/22 History Aspirin 81 mg PO DAILY 30 Days #30 tab 10/01/21 01/15/22 Rx Folic Acid 1 mg PO DAILY #30 tablet 10/01/21 01/15/22 Rx Multivitamins, Thera [Multivitamin 1 tab PO DAILY #30 tablet 10/01/21 01/15/22 Rx (formulary)] Atorvastatin [Lipitor] 20 mg PO HS 12/03/21 01/15/22 History Calcium Carbonate/Vitamin D3 1 tab PO BID 12/03/21 01/15/22 History [Calcium 500-Vit D3 5 Mcg (200 Iu)] Citalopram Hydrobromide [CeleXA] 20 mg PO DAILY 12/03/21 01/15/22 History Metoprolol Tartrate [Lopressor] 12.5 mg PO BID 12/03/21 01/15/22 History Insulin Aspart [NovoLOG Flexpen] See Protocol SQ ACHS 01/02/22 01/15/22 History Insulin Glargine,Hum.rec.anlog 12 unit SQ DAILY #5 pen 01/16/22 Rx [Lantus Solostar Pen] Allergies Allergy/AdvReac Type Severity Reaction Status Date / Time Penicillins Allergy Unknown Verified 01/15/22 19:42 Physical Exam Vitals: Vital Signs Temp Pulse Pulse Resp BP BP Pulse Ox 01/16/22 07:42 98 F 62 17 111/61 98 01/16/22 04:00 97.7 F 82 18 130/62 99 01/16/22 02:00 85 18 01/16/22 00:00 97.7 F 85 18 132/68 99 01/15/22 22:45 85 18 01/15/22 22:32 97.8 F 83 18 132/67 01/15/22 21:15 98.0 F 95 16 129/65 99 01/15/22 17:37 97.3 F L 95 16 133/72 98 Intake and Output 01/15/22 01/16/22 01/16/22 22:59 06:59 14:59 Intake Total 240 Balance 240 Intake: Oral 240 Other: Voiding Method Toilet Toilet # Voids 1 # Bowel Movements 1 Weight 74.843 kg 56.8 kg Results CBC & Chem 7: 01/15/22 18:20 01/15/22 18:20 Labs: Abnormal Lab Results - Last 24 Hours (Table) 01/15/22 01/15/22 01/15/22 Range/Units 17:36 18:14 18:20 WBC 3.1 L (3.8-10.6) k/uL RBC 3.38 L (3.80-5.40) m/uL Hgb 11.3 L (11.4-16.0) gm/dL Hct 33.2 L (34.0-46.0) % Lymphocytes # 0.6 L (1.0-4.8) k/uL Potassium (3.5-5.1) mmol/L Glucose (74-99) mg/dL POC Glucose (mg/dL) 55 L 107 H (75-99) mg/dL Alkaline Phosphatase (38-126) U/L 01/15/22 01/15/22 01/15/22 Range/Units 18:20 21:09 21:11 WBC (3.8-10.6) k/uL RBC (3.80-5.40) m/uL Hgb (11.4-16.0) gm/dL Hct (34.0-46.0) % Lymphocytes # (1.0-4.8) k/uL Potassium 3.4 L (3.5-5.1) mmol/L Glucose 187 H (74-99) mg/dL POC Glucose (mg/dL) 39 L 39 L (75-99) mg/dL Alkaline Phosphatase 26 L (38-126) U/L 01/15/22 01/15/22 01/16/22 Range/Units 21:39 22:30 00:28 WBC (3.8-10.6) k/uL RBC (3.80-5.40) m/uL Hgb (11.4-16.0) gm/dL Hct (34.0-46.0) % Lymphocytes # (1.0-4.8) k/uL Potassium (3.5-5.1) mmol/L Glucose (74-99) mg/dL POC Glucose (mg/dL) 176 H 131 H 136 H (75-99) mg/dL Alkaline Phosphatase (38-126) U/L 01/16/22 01/16/22 01/16/22 Range/Units 02:28 02:41 02:54 WBC (3.8-10.6) k/uL RBC (3.80-5.40) m/uL Hgb (11.4-16.0) gm/dL Hct (34.0-46.0) % Lymphocytes # (1.0-4.8) k/uL Potassium (3.5-5.1) mmol/L Glucose (74-99) mg/dL POC Glucose (mg/dL) 59 L 55 L 61 L (75-99) mg/dL Alkaline Phosphatase (38-126) U/L 01/16/22 01/16/22 01/16/22 Range/Units 03:08 04:29 04:55 WBC (3.8-10.6) k/uL RBC (3.80-5.40) m/uL Hgb (11.4-16.0) gm/dL Hct (34.0-46.0) % Lymphocytes # (1.0-4.8) k/uL Potassium (3.5-5.1) mmol/L Glucose (74-99) mg/dL POC Glucose (mg/dL) 267 H 133 H 121 H (75-99) mg/dL Alkaline Phosphatase (38-126) U/L 01/16/22 01/16/22 01/16/22 Range/Units 05:57 06:11 06:24 WBC (3.8-10.6) k/uL RBC (3.80-5.40) m/uL Hgb (11.4-16.0) gm/dL Hct (34.0-46.0) % Lymphocytes # (1.0-4.8) k/uL Potassium (3.5-5.1) mmol/L Glucose (74-99) mg/dL POC Glucose (mg/dL) 60 L 64 L 150 H (75-99) mg/dL Alkaline Phosphatase (38-126) U/L 01/16/22 01/16/22 01/16/22 Range/Units 07:00 07:57 08:54 WBC (3.8-10.6) k/uL RBC (3.80-5.40) m/uL Hgb (11.4-16.0) gm/dL Hct (34.0-46.0) % Lymphocytes # (1.0-4.8) k/uL Potassium (3.5-5.1) mmol/L Glucose (74-99) mg/dL POC Glucose (mg/dL) 157 H 182 H 217 H (75-99) mg/dL Alkaline Phosphatase (38-126) U/L Thrombosis Risk Factor Assmnt - Choose All That Apply Any of the Below Risk Factors Present?: No Other Risk Factors: Yes Each Risk Factor Represents 2 Points: Age 61-74 years Other congenital or acquired thrombophilia - If yes, enter type in comment: No Thrombosis Risk Factor Assessment Total Risk Factor Score: 2 Thrombosis Risk Factor Assessment Level: Low Risk
[2022-01-16 10:08] LABS: Glucose,Whole Blood 178 mg/dL (75-99)
[2022-01-16 11:09] LABS: Glucose,Whole Blood 137 mg/dL (75-99)
[2022-01-16 11:23] LABS: ALT 17 U/L (4-34); AST 40 U/L (14-36); African American GFR (CKD) >90 (>60 ml/min/1.73 sqM); Albumin 3.4 g/dL (3.5-5.0); Alkaline Phosphatase 29 U/L (38-126); Anion Gap 5 mmol/L; Blood Urea Nitrogen 10 mg/dL (7-17); Calcium 8.5 mg/dL (8.4-10.2); Carbon Dioxide 24 mmol/L (22-30); Chloride 105 mmol/L (98-107); Glucose 148 mg/dL (74-99); Non-African American GFR(CKD) >90 (>60 ml/min/1.73 sqM); Potassium 4.4 mmol/L (3.5-5.1); Sodium 134 mmol/L (137-145); Total Bilirubin 0.4 mg/dL (0.2-1.3); Total Protein 6.5 g/dL (6.3-8.2)
[2022-01-16] MEDS: ARTIFICIAL TEARS-HYPROMELLOSE DROPS 15 ML BTL BOTH EYES SCH ×3 (11:29→17:11)
[2022-01-16 11:58] LABS: Glucose,Whole Blood 111 mg/dL (75-99)
[2022-01-16] MEDS: INSULIN ASPART (NovoLOG) 100 UNIT/ML VIAL SQ SCH ×2 (12:12→17:11)
[2022-01-16 13:25] LABS: Glucose,Whole Blood 122 mg/dL (75-99)
[2022-01-16 14:10] LABS: Glucose,Whole Blood 136 mg/dL (75-99)
[2022-01-16 15:01] LABS: Glucose,Whole Blood 147 mg/dL (75-99)
[2022-01-16 15:55] LABS: Glucose,Whole Blood 111 mg/dL (75-99)
[2022-01-16 16:24] VITALS: BP 110/60; PULSE 75; RESP 17; TEMP 97.6
[2022-01-16 17:35] LABS: Glucose,Whole Blood 139 mg/dL (75-99)
[2022-01-16] MEDS ORDERED: ATORVASTATIN 20 MG TAB PO SCH (21:00)
[2022-01-16] MEDS ORDERED: SODIUM CHLORIDE 5% OPHTH OINT 3.5 GM TUBE LEFT EYE SCH (21:00)
== END 2022-01-16 18:07 | disposition home or self-care (01) ==
LOC: EC 17:34 → 3SCARD 20:16
PROVIDERS: ADMIT Hospitalist; ATTEND Hospitalist
DX: E11.649 Type 2 diabetes mellitus with hypoglycemia without coma (principal); I48.91 Unspecified atrial fibrillation; G40.909 Epilepsy, unspecified, not intractable, without status epilepticus; E86.0 Dehydration; E03.9 Hypothyroidism, unspecified; G47.30 Sleep apnea, unspecified; K21.9 Gastro-esophageal reflux disease without esophagitis; Z79.899 Other long term (current) drug therapy; Z79.83 Long term (current) use of bisphosphonates; Z79.82 Long term (current) use of aspirin; Z79.4 Long term (current) use of insulin; Z79.01 Long term (current) use of anticoagulants; Z88.0 Allergy status to penicillin; Z90.721 Acquired absence of ovaries, unilateral; Z90.49 Acquired absence of other specified parts of digestive tract; Z98.84 Bariatric surgery status; Z86.73 Personal history of transient ischemic attack (TIA), and cerebral infarction without residual deficits; Z82.49 Family history of ischemic heart disease and other diseases of the circulatory system; Z83.49 Family history of other endocrine, nutritional and metabolic diseases
CPT/HCPCS: 99285; 96376 ×2; 96365; 96366; 36415; 93005; 80053 ×2; 83735; 85025; 70450; G0378 ×2

== ENCOUNTER 2022-05-01 14:55 | Inpatient (IN) | payer MEDICARE ==
--- NOTE | 2022-05-01 15:50 | ED ---
Nausea/Vomiting/Diarrhea HPI - General Chief complaint: Nausea/Vomiting/Diarrhea Stated complaint: Hyperglycemia Time Seen by Provider: 05/01/22 15:47 Source: patient Mode of arrival: wheelchair Limitations: no limitations - History of Present Illness Initial comments: Madison is a 66yo F history of insulin-dependent diabetes who presents to the emergency department today for evaluation of nausea vomiting and feeling unwell. Patient reports her sugars were mildly elevated last night, she woke up this morning feeling sick. She hasn't been using her insulin today. Patient states she feels like this when her sugar gets high. She states her stomach is cramping from throwing up but she has no significant pain anywhere. Just does not feel well. - Related Data Home Medications Medication Instructions Recorded Confirmed Polyvinyl Alcohol/Povidone 1 drop BOTH EYES QID PRN 04/22/21 04/08/22 [Freshkote Eye Drop] Atorvastatin [Lipitor] 20 mg PO HS 12/03/21 04/08/22 Citalopram Hydrobromide [CeleXA] 10 mg PO DAILY 12/03/21 04/08/22 Metoprolol Tartrate [Lopressor] 12.5 mg PO BID 12/03/21 04/08/22 Insulin Aspart [NovoLOG Flexpen] See Protocol SQ ACHS 01/02/22 04/08/22 Calcium Carbonate 500 mg PO DAILY 02/23/22 04/08/22 Multivit-Min/Iron/Folic/Lutein 2 each PO DAILY 02/23/22 04/08/22 [Centrum Silver Women Tablet] Previous Rx's Medication Instructions Recorded Apixaban [Eliquis] 5 mg PO BID #60 tab 05/19/21 Aspirin 81 mg PO DAILY 30 Days #30 tab 10/01/21 Folic Acid 1 mg PO DAILY #30 tablet 10/01/21 Insulin Glargine,Hum.rec.anlog 12 unit SQ DAILY #5 pen 01/16/22 [Lantus Solostar Pen] Allergies Allergy/AdvReac Type Severity Reaction Status Date / Time Penicillins Allergy Unknown Verified 05/01/22 15:19 Review of Systems ROS Statement: Those systems with pertinent positive or pertinent negative responses have been documented in the HPI. ROS Other: All systems not noted in ROS Statement are negative. 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 Needs to use a child's one. mother has diff coming out Past Psychological History: Depression Smoking Status: Never smoker Past Alcohol Use History: None Reported Past Drug Use History: None Reported - Past Family History Mother Family Medical History: Thyroid Disorder Additional Family Medical History / Comment(s): thyroid removed Father Family Medical History: Myocardial Infarction ([place]) General Exam - General Exam Comments Initial Comments: Physical Exam GENERAL: Appears dehydrated HENT: Normocephalic, Atraumatic. EYES: PERRL, EOMI PULMONARY: Unlabored respirations. CARDIOVASCULAR: RRR ABDOMEN: Soft and nontender with normal bowel sounds. SKIN: Dry Skin is clear with no lesions or rashes and otherwise unremarkable. : Deferred NEUROLOGIC: Patient is alert and oriented x3. Moving all extremities spontaneously MUSCULOSKELETAL: Normal extremities with adequate strength and full range of motion. No lower extremity swelling or edema. No calf tenderness. PSYCHIATRIC: Normal psychiatric evaluation. Limitations: no limitations Course Vital Signs 05/01/22 05/01/22 05/01/22 15:15 16:20 17:56 Temperature 97.8 F 98.2 F 98.1 F Pulse Rate 110 H 91 86 Respiratory 18 18 18 Rate Blood Pressure 83/52 111/71 118/70 O2 Sat by Pulse 99 97 98 Oximetry 05/01/22 18:13 Temperature Pulse Rate 90 Respiratory 18 Rate Blood Pressure 123/62 O2 Sat by Pulse 98 Oximetry Medical Decision Making - Medical Decision Making The patient was seen and evaluated, history is obtained from the patient and review of medical record 66-year-old insulin dependent diabetic with glucose greater than 600 on arrival DKA workup was initiated Patient has a high anion gap hyperglycemia positive for acetone however her venous pH is not acidotic Patient pseudohyponatremia, mild hyperkalemia likely related to the hyper glycemia IVF and insulin infusion were ordered Patient will be admitted, Dr Joy accepts admission - Lab Data Result diagrams: 05/01/22 16:04 05/01/22 16:04 Lab Results 05/01/22 05/01/22 05/01/22 Range/Units 16:04 16:04 16:04 WBC 10.2 (3.8-10.6) k/uL RBC 4.32 (3.80-5.40) m/uL Hgb 13.4 (11.4-16.0) gm/dL Hct 42.1 (34.0-46.0) % MCV 97.3 (80.0-100.0) fL MCH 31.0 (25.0-35.0) pg MCHC 31.9 (31.0-37.0) g/dL RDW 12.2 (11.5-15.5) % Plt Count 271 (150-450) k/uL MPV 8.1 Neutrophils % 91 % Lymphocytes % 6 % Monocytes % 3 % Eosinophils % 0 % Basophils % 0 % Neutrophils # 9.3 H (1.3-7.7) k/uL Lymphocytes # 0.6 L (1.0-4.8) k/uL Monocytes # 0.3 (0-1.0) k/uL Eosinophils # 0.0 (0-0.7) k/uL Basophils # 0.0 (0-0.2) k/uL PT 10.2 (9.0-12.0) sec INR 0.9 (<1.2) APTT 20.0 L (22.0-30.0) sec VBG pH (7.31-7.41) VBG pCO2 (37-51) mmHg VBG HCO3 (24-28) mmol/L Sodium (137-145) mmol/L Potassium (3.5-5.1) mmol/L Chloride (98-107) mmol/L Carbon Dioxide (22-30) mmol/L Anion Gap mmol/L BUN (7-17) mg/dL Creatinine (0.52-1.04) mg/dL Est GFR (CKD-EPI)AfAm (>60 ml/min/1.73 sqM) Est GFR (CKD-EPI)NonAf (>60 ml/min/1.73 sqM) Glucose (74-99) mg/dL POC Glucose (mg/dL) (75-99) mg/dL POC Glu Locomotive Engineer ID Plasma Lactic Acid Apolinar (0.7-2.0) mmol/L Calcium (8.4-10.2) mg/dL Total Bilirubin (0.2-1.3) mg/dL AST (14-36) U/L ALT (4-34) U/L Alkaline Phosphatase (38-126) U/L Troponin I <0.012 (0.000-0.034) ng/mL Total Protein (6.3-8.2) g/dL Albumin (3.5-5.0) g/dL Lipase (23-300) U/L Acetone, Qual (Negative) 05/01/22 05/01/22 05/01/22 Range/Units 16:04 16:04 17:16 WBC (3.8-10.6) k/uL RBC (3.80-5.40) m/uL Hgb (11.4-16.0) gm/dL Hct (34.0-46.0) % MCV (80.0-100.0) fL MCH (25.0-35.0) pg MCHC (31.0-37.0) g/dL RDW (11.5-15.5) % Plt Count (150-450) k/uL MPV Neutrophils % % Lymphocytes % % Monocytes % % Eosinophils % % Basophils % % Neutrophils # (1.3-7.7) k/uL Lymphocytes # (1.0-4.8) k/uL Monocytes # (0-1.0) k/uL Eosinophils # (0-0.7) k/uL Basophils # (0-0.2) k/uL PT (9.0-12.0) sec INR (<1.2) APTT (22.0-30.0) sec VBG pH (7.31-7.41) VBG pCO2 (37-51) mmHg VBG HCO3 (24-28) mmol/L Sodium 129 L (137-145) mmol/L Potassium 5.5 H (3.5-5.1) mmol/L Chloride 88 L (98-107) mmol/L Carbon Dioxide 13 L (22-30) mmol/L Anion Gap 28 mmol/L BUN 45 H (7-17) mg/dL Creatinine 1.88 H (0.52-1.04) mg/dL Est GFR (CKD-EPI)AfAm 31 (>60 ml/min/1.73 sqM) Est GFR (CKD-EPI)NonAf 27 (>60 ml/min/1.73 sqM) Glucose 757 H* (74-99) mg/dL POC Glucose (mg/dL) >600 H (75-99) mg/dL POC Glu Locomotive Engineer ID Chuyita Ramirez Plasma Lactic Acid Apolinar 3.8 H* (0.7-2.0) mmol/L Calcium 10.3 H (8.4-10.2) mg/dL Total Bilirubin 0.9 (0.2-1.3) mg/dL AST 28 (14-36) U/L ALT 23 (4-34) U/L Alkaline Phosphatase 44 (38-126) U/L Troponin I (0.000-0.034) ng/mL Total Protein 8.5 H (6.3-8.2) g/dL Albumin 5.2 H (3.5-5.0) g/dL Lipase 30 (23-300) U/L Acetone, Qual Positive (Negative) 05/01/22 05/01/22 Range/Units 17:29 18:11 WBC (3.8-10.6) k/uL RBC (3.80-5.40) m/uL Hgb (11.4-16.0) gm/dL Hct (34.0-46.0) % MCV (80.0-100.0) fL MCH (25.0-35.0) pg MCHC (31.0-37.0) g/dL RDW (11.5-15.5) % Plt Count (150-450) k/uL MPV Neutrophils % % Lymphocytes % % Monocytes % % Eosinophils % % Basophils % % Neutrophils # (1.3-7.7) k/uL Lymphocytes # (1.0-4.8) k/uL Monocytes # (0-1.0) k/uL Eosinophils # (0-0.7) k/uL Basophils # (0-0.2) k/uL PT (9.0-12.0) sec INR (<1.2) APTT (22.0-30.0) sec VBG pH 7.34 (7.31-7.41) VBG pCO2 36 L (37-51) mmHg VBG HCO3 19 L (24-28) mmol/L Sodium (137-145) mmol/L Potassium (3.5-5.1) mmol/L Chloride (98-107) mmol/L Carbon Dioxide (22-30) mmol/L Anion Gap mmol/L BUN (7-17) mg/dL Creatinine (0.52-1.04) mg/dL Est GFR (CKD-EPI)AfAm (>60 ml/min/1.73 sqM) Est GFR (CKD-EPI)NonAf (>60 ml/min/1.73 sqM) Glucose (74-99) mg/dL POC Glucose (mg/dL) 474 H (75-99) mg/dL POC Glu Locomotive Engineer [place] Plasma Lactic Acid Apolinar (0.7-2.0) mmol/L Calcium (8.4-10.2) mg/dL Total Bilirubin (0.2-1.3) mg/dL AST (14-36) U/L ALT (4-34) U/L Alkaline Phosphatase (38-126) U/L Troponin I (0.000-0.034) ng/mL Total Protein (6.3-8.2) g/dL Albumin (3.5-5.0) g/dL Lipase (23-300) U/L Acetone, Qual (Negative) Critical Care Time Critical Care Time: Yes Critical Care Time: Critical Care Time 30 Critical care time was exclusive of separately billable procedures and treating other patients and teaching time. Critical care was necessary to treat or prevent imminent or life-threatening deterioration. Given the critical condition in which the patient arrived, the patient was immediately assessed by myself and the nurse, and cardiac monitoring initiated due to the potential for rapid decompensation of the patient's clinical condition. During the course of the patients stay, I spent a considerable amount of time at the bedside performing serial re-evaluations of the patient's hemodynamic and clinical status because of the recognized potential threat to life or limb in this condition. I then had a chance to review not only all of the available current laboratory and radiographic studies obtained today, but I also reviewed old records available to me at the time. Additionally, any ancillary information available including associate professor of communication records were reviewed. Sequential vital signs were obtained. Disposition Clinical Impression: DKA (diabetic ketoacidosis), FREDRICK (acute kidney injury) Disposition: ADMITTED IP TO THIS HOSP Condition: Serious Is patient prescribed a controlled substance at d/c from ED?: No Referrals: [facility],Clinic [Primary Care Provider] - 1-2 days
[2022-05-01 16:20] LABS: Basophils % (A) 0 %; Eosinophils % (A) 0 %; HCT 42.1 % (34.0-46.0); HGB 13.4 gm/dL (11.4-16.0); Lymphocytes # (A) 0.6 k/uL (1.0-4.8); Lymphocytes % (A) 6 %; MCHC 31.9 g/dL (31.0-37.0); MCV 97.3 fL (80.0-100.0); Mean Platelet Volume 8.1; Monocytes # (A) 0.3 k/uL (0-1.0); Monocytes % (A) 3 %; Neutrophils # (A) 9.3 k/uL (1.3-7.7); Neutrophils % (A) 91 %; Platelet Count 271 k/uL (150-450); RBC 4.32 m/uL (3.80-5.40); RDW 12.2 % (11.5-15.5); WBC 10.2 k/uL (3.8-10.6)
[2022-05-01 16:36] LABS: ALT 23 U/L (4-34); AST 28 U/L (14-36); African American GFR (CKD) 31 (>60 ml/min/1.73 sqM); Albumin 5.2 g/dL (3.5-5.0); Alkaline Phosphatase 44 U/L (38-126); Anion Gap 28 mmol/L; Blood Urea Nitrogen 45 mg/dL (7-17); Calcium 10.3 mg/dL (8.4-10.2); Carbon Dioxide 13 mmol/L (22-30); Chloride 88 mmol/L (98-107); Lipase 30 U/L (23-300); Non-African American GFR(CKD) 27 (>60 ml/min/1.73 sqM); Potassium 5.5 mmol/L (3.5-5.1); Sodium 129 mmol/L (137-145); Total Bilirubin 0.9 mg/dL (0.2-1.3); Total Protein 8.5 g/dL (6.3-8.2)
[2022-05-01 16:54] LABS: INR 0.9 (<1.2); Prothrombin Time 10.2 sec (9.0-12.0)
[2022-05-01 17:06] LABS: Glucose 757 mg/dL (74-99)
[2022-05-01] MEDS ORDERED: INSULIN REGULAR BOLUS (FROM DRIP BAG) IV ONE (17:15)
[2022-05-01] MEDS ORDERED: SODIUM CHLORIDE 0.9% 1,000 ML IV STA ×2 (17:15→17:31)
[2022-05-01] MEDS ORDERED: INSULIN REGULAR 100 UNIT in SODIUM CHLORIDE 0.9% 100 ML IV SCH (17:15)
[2022-05-01 17:18] LABS: Glucose,Whole Blood >600 mg/dL (75-99)
[2022-05-01] MEDS ORDERED: NALOXONE 0.4 MG/ML 1 ML VIAL IV PRN (17:26)
[2022-05-01] MEDS: INSULIN REGULAR 100 UNIT in SODIUM CHLORIDE 0.9% 100 ML IV SCH (17:53)
--- NOTE | 2022-05-01 17:54 | P.HPIM ---
History of Present Illness H&P Date: 05/01/22 Chief Complaint: Nausea and vomiting This is 66-year-old white female who reported to the hospital with lethargy associated with hyperglycemia with nausea vomiting and diarrhea but has been going on for the past couple days. She also reports subjective fever at home. She denies dysuria, no hematuria, no chest pain or shortness of breath. She denies dizziness or loss of consciousness. She denies abdominal pain. She states that she continues to take her insulin like prescribed. She has history of DKA once before. At the time of examination patient is lethargic but does not appear to be in distress Review of Systems 10 systems reviewed, pertinent positive and negative findings as in HPI. Nausea vomiting and diarrhea. 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 Needs to use a child's one. mother has diff coming out Past Psychological History: Depression Smoking Status: Never smoker Past Alcohol Use History: None Reported Past Drug Use History: None Reported - Past Family History Mother Family Medical History: Thyroid Disorder Additional Family Medical History / Comment(s): thyroid removed Father Family Medical History: Myocardial Infarction ([place]) Medications and Allergies Home Medications Medication Instructions Recorded Confirmed Type Polyvinyl Alcohol/Povidone 1 drop BOTH EYES QID PRN 04/22/21 04/08/22 History [Freshkote Eye Drop] Apixaban [Eliquis] 5 mg PO BID #60 tab 05/19/21 04/08/22 Rx Aspirin 81 mg PO DAILY 30 Days #30 tab 10/01/21 04/08/22 Rx Folic Acid 1 mg PO DAILY #30 tablet 10/01/21 04/08/22 Rx Atorvastatin [Lipitor] 20 mg PO HS 12/03/21 04/08/22 History Citalopram Hydrobromide [CeleXA] 10 mg PO DAILY 12/03/21 04/08/22 History Metoprolol Tartrate [Lopressor] 12.5 mg PO BID 12/03/21 04/08/22 History Insulin Aspart [NovoLOG Flexpen] See Protocol SQ ACHS 01/02/22 04/08/22 History Insulin Glargine,Hum.rec.anlog 12 unit SQ DAILY #5 pen 01/16/22 04/08/22 Rx [Lantus Solostar Pen] Calcium Carbonate 500 mg PO DAILY 02/23/22 04/08/22 History Multivit-Min/Iron/Folic/Lutein 2 each PO DAILY 02/23/22 04/08/22 History [Centrum Silver Women Tablet] Allergies Allergy/AdvReac Type Severity Reaction Status Date / Time Penicillins Allergy Unknown Verified 05/01/22 15:19 Physical Exam Vitals: Vital Signs Temp Pulse Resp BP Pulse Ox 05/01/22 16:20 98.2 F 91 18 111/71 97 05/01/22 15:15 97.8 F 110 H 18 83/52 99 Intake and Output 05/01/22 05/01/22 05/01/22 06:59 14:59 22:59 Other: Weight 72.575 kg Constitutional: No acute distress, conversant, pleasant Eyes: Anicteric sclerae, moist conjunctiva, no lid-lag, PERRLA ENMT: NC/AT,Oropharynx clear, no erythema, exudates Neck:Supple, FROM, no masses, or JVD Lungs: Clear to auscultation, Clear to percussion, Normal respiratory effort Cardiovascular: Heart regular in rate and rhythm, No murmurs, gallops, or rubs no peripheral edema Abdominal: Soft Nontender, non distended, no guarding, no rebound or rigidity, Normoactive bowel sounds No hepatomegaly, No splenomegaly, No palpable mass No abdominal wall hernia noted Skin: Normal temperature, tone, texture, turgor, No induration No subcutaneous nodules, No rash, lesions, No ulcers Extremities:No digital cyanosis No clubbing, Pedal pulses intact and symmetrical Radial pulses intact and symmetrical Normal gait and station, No calf tenderness Psychiatric: Alert and oriented to person, place and time, Appropriate affect Intact judgement Neuro: Muscles Strength 5/5 in all 4 extremities, Sensation to light touch grossly present throughout, Cranial nerves II-XII grossly intact. No focal sensory deficits Results CBC & Chem 7: 05/01/22 16:04 05/01/22 16:04 Labs: Abnormal Lab Results - Last 24 Hours (Table) 05/01/22 05/01/22 05/01/22 Range/Units 16:04 16:04 16:04 Neutrophils # 9.3 H (1.3-7.7) k/uL Lymphocytes # 0.6 L (1.0-4.8) k/uL APTT 20.0 L (22.0-30.0) sec Sodium 129 L (137-145) mmol/L Potassium 5.5 H (3.5-5.1) mmol/L Chloride 88 L (98-107) mmol/L Carbon Dioxide 13 L (22-30) mmol/L BUN 45 H (7-17) mg/dL Creatinine 1.88 H (0.52-1.04) mg/dL Glucose 757 H* (74-99) mg/dL POC Glucose (mg/dL) (75-99) mg/dL Plasma Lactic Acid Apolinar (0.7-2.0) mmol/L Calcium 10.3 H (8.4-10.2) mg/dL Total Protein 8.5 H (6.3-8.2) g/dL Albumin 5.2 H (3.5-5.0) g/dL 05/01/22 05/01/22 Range/Units 16:04 17:16 Neutrophils # (1.3-7.7) k/uL Lymphocytes # (1.0-4.8) k/uL APTT (22.0-30.0) sec Sodium (137-145) mmol/L Potassium (3.5-5.1) mmol/L Chloride (98-107) mmol/L Carbon Dioxide (22-30) mmol/L BUN (7-17) mg/dL Creatinine (0.52-1.04) mg/dL Glucose (74-99) mg/dL POC Glucose (mg/dL) >600 H (75-99) mg/dL Plasma Lactic Acid Apolinar 3.8 H* (0.7-2.0) mmol/L Calcium (8.4-10.2) mg/dL Total Protein (6.3-8.2) g/dL Albumin (3.5-5.0) g/dL Assessment and Plan Plan: 1. Diabetes type 2 with DKA without coma: Place on IV insulin drip, IV fluids and titrate as indicated. Continue supportive care, rest electrolytes as indicated. Check urinalysis and chest x-ray. Check cardiac enzymes. 2. Anion gap metabolic acidosis secondary to DKA: Bicarbonate 13, continue insulin drip and fluids. 3. Hyperkalemia secondary to DKA: Potassium 5.5, monitor. 4. Acute kidney injury: Creatinine 1.8, unknown baseline, likely associated with hypovolemia: Continue on fluid resuscitation and reevaluate. 5. Actiq acidosis secondary to hypovolemia: Lactate 3.8, continue IV fluids and monitor. 6. Hyperlipidemia: Continue statin 7. History of CVA/TIA on Anticoagulation: On adequate's 8. Depression: Continue Celexa 9. History of seizure disorder: Monitor 10. Chronic atrial fibrillation: On Eliquis DVT prophylaxis: Eliquis Disposition: Home in 2-3 days
[2022-05-01] MEDS: SODIUM CHLORIDE 0.9% 1,000 ML IV SCH ×3 (17:55→23:29)
[2022-05-01] MEDS: INSULIN ASPART (NovoLOG) 100 UNIT/ML VIAL SQ SCH (17:56)
[2022-05-01 17:57] LABS: VBG PH 7.34 (7.31-7.41)
[2022-05-01 18:12] LABS: Glucose,Whole Blood 474 mg/dL (75-99)
[2022-05-01 18:37] LABS: HCT 35.9 % (34.0-46.0); HGB 11.2 gm/dL (11.4-16.0); MCHC 31.3 g/dL (31.0-37.0); MCV 95.8 fL (80.0-100.0); Platelet Count 199 k/uL (150-450); RBC 3.75 m/uL (3.80-5.40); RDW 11.7 % (11.5-15.5); WBC 8.8 k/uL (3.8-10.6)
--- NOTE | 2022-05-01 18:41 | XR ---
EXAMINATION TYPE: XR chest 1V portable DATE OF EXAM: 05/01/2022 COMPARISON: 12/03/2021 HISTORY: Ketoacidosis TECHNIQUE: Single view FINDINGS: Heart is normal. Lungs are clear. Diaphragm is normal. Bony thorax is intact. There are billy st leads. IMPRESSION: No active cardiomegaly disease. No change.
[2022-05-01 19:15] LABS: Glucose,Whole Blood 446 mg/dL (75-99)
[2022-05-01 19:28] LABS: Appearance,Urine Clear (Clear); Bilirubin,Urine Negative (Negative); Blood,Urine Negative (Negative); Color,Urine Light Yellow; Glucose,Urine (UA) 4+ (Negative); Hyaline Casts,Urine 7 /lpf (0-2); Leukocyte Esterase,Urine Moderate (Negative); Mucus,Urine Rare /hpf; Nitrite,Urine Negative (Negative); Protein,Urine Negative (Negative); RBC,Urine 2 /hpf (0-5); Specific Gravity,Urine 1.021 (1.001-1.035); Squamous Epithelial Cell,Urine 1 /hpf (0-4); Urobilinogen,Urine <2.0 mg/dL (<2.0); WBC,Urine 19 /hpf (0-5)
[2022-05-01 19:29] LABS: Ketones,Urine 2+ (Negative)
[2022-05-01 20:07] LABS: Glucose,Whole Blood 301 mg/dL (75-99)
[2022-05-01] MEDS: DEXTROSE 5%-0.45% NACL 1,000 ML with POTASSIUM CHLORIDE 20 MEQ IV SCH ×2 (21:14)
[2022-05-01 21:24] LABS: Glucose,Whole Blood 215 mg/dL (75-99)
[2022-05-01 22:08] LABS: Glucose,Whole Blood 156 mg/dL (75-99)
[2022-05-01 22:57] LABS: Glucose,Whole Blood 127 mg/dL (75-99)
[2022-05-01] MEDS: APIXABAN 5 MG TAB PO SCH (23:22)
[2022-05-01] MEDS: METOPROLOL TARTRATE 12.5 MG TAB PO SCH ×2 (23:22→23:26)
[2022-05-01] MEDS: ATORVASTATIN 20 MG TAB PO SCH (23:22)
[2022-05-02 00:16] LABS: Albumin 3.7 g/dL (3.5-5.0); Calcium 8.8 mg/dL (8.4-10.2); Phosphorus 2.3 mg/dL (2.5-4.5); Potassium 3.9 mmol/L (3.5-5.1); Total Bilirubin 0.4 mg/dL (0.2-1.3); Total Protein 6.3 g/dL (6.3-8.2)
[2022-05-02 00:24] LABS: Glucose,Whole Blood 91 mg/dL (75-99)
[2022-05-02] MEDS: INSULIN REGULAR 100 UNIT in SODIUM CHLORIDE 0.9% 100 ML IV SCH (01:10)
[2022-05-02] MEDS: SODIUM CHLORIDE 0.9% 1,000 ML IV SCH ×4 (01:13→21:41)
[2022-05-02 01:27] LABS: Glucose,Whole Blood 121 mg/dL (75-99)
[2022-05-02 02:25] LABS: Glucose,Whole Blood 146 mg/dL (75-99)
[2022-05-02 04:24] LABS: Glucose,Whole Blood 260 mg/dL (75-99)
[2022-05-02 04:36] LABS: HCT 30.6 % (34.0-46.0); MCH 30.6 pg (25.0-35.0); MCHC 32.7 g/dL (31.0-37.0); MCV 93.7 fL (80.0-100.0); Mean Platelet Volume 7.8; Platelet Count 188 k/uL (150-450); RBC 3.27 m/uL (3.80-5.40); RDW 11.7 % (11.5-15.5); WBC 7.3 k/uL (3.8-10.6)
[2022-05-02 04:46] LABS: Albumin 3.5 g/dL (3.5-5.0); Calcium 8.6 mg/dL (8.4-10.2); Potassium 4.2 mmol/L (3.5-5.1); Total Bilirubin 0.7 mg/dL (0.2-1.3); Total Protein 6.1 g/dL (6.3-8.2)
[2022-05-02] MEDS: DEXTROSE 5%-0.45% NACL 1,000 ML with POTASSIUM CHLORIDE 20 MEQ IV SCH ×4 (05:00→10:00)
[2022-05-02 05:28] LABS: Glucose,Whole Blood 306 mg/dL (75-99)
[2022-05-02 06:00] LABS: Glucose,Whole Blood 316 mg/dL (75-99)
[2022-05-02 06:59] LABS: Glucose,Whole Blood 259 mg/dL (75-99)
[2022-05-02 08:05] LABS: Glucose,Whole Blood 249 mg/dL (75-99)
[2022-05-02] MEDS: INSULIN ASPART (NovoLOG) 100 UNIT/ML VIAL SQ SCH ×6 (08:15→20:30)
[2022-05-02 09:14] LABS: Glucose,Whole Blood 138 mg/dL (75-99)
[2022-05-02] MEDS: APIXABAN 5 MG TAB PO SCH ×2 (09:56→20:30)
[2022-05-02] MEDS: METOPROLOL TARTRATE 12.5 MG TAB PO SCH ×2 (09:56→20:30)
[2022-05-02] MEDS: ASPIRIN 81 MG PO SCH (09:56)
[2022-05-02 10:12] LABS: Glucose,Whole Blood 135 mg/dL (75-99)
[2022-05-02 11:19] LABS: Glucose,Whole Blood 112 mg/dL (75-99)
[2022-05-02 12:02] LABS: Glucose,Whole Blood 136 mg/dL (75-99)
[2022-05-02 13:20] LABS: African American GFR (CKD) >90 (>60 ml/min/1.73 sqM); Anion Gap 10 mmol/L; Blood Urea Nitrogen 26 mg/dL (7-17); Calcium 8.5 mg/dL (8.4-10.2); Carbon Dioxide 19 mmol/L (22-30); Chloride 107 mmol/L (98-107); Glucose 182 mg/dL (74-99); Non-African American GFR(CKD) 87 (>60 ml/min/1.73 sqM); Potassium 4.2 mmol/L (3.5-5.1); Sodium 136 mmol/L (137-145)
--- NOTE | 2022-05-02 16:25 | P.PN ---
Subjective Progress Note Date: 05/02/22 This is 66-year-old white female who reported to the hospital with lethargy associated with hyperglycemia with nausea vomiting and diarrhea but has been going on for the past couple days. She also reports subjective fever at home. She denies dysuria, no hematuria, no chest pain or shortness of breath. She denies dizziness or loss of consciousness. She denies abdominal pain. She states that she continues to take her insulin like prescribed. She has history of DKA once before. Patient was found to be in DKA, patient was started on the [place] protocol management and IV insulin IV fluid and left lateral placement Subjective Patient seen and evaluated at bedside, today patient does not report any worsening of his breathing or report any new significant chest pain. Patient remains in no acute distress. Patient questions and concerns addressed at bedside, proper counseling done. Plan discussed with nursing staff. Assessment and plan Diabetes mellitus type II with DKA Provocative factor unclear, patient reports compliance with the medication, questionable if due to urinary tract infection Patient anion gap closed, she is able to eat and drink Advance diet Discontinue IV insulin drip switching to subcutaneous insulin Continues on sliding scale Urinary tract infection Follow-up cultures Continue ceftriaxone FREDRICK Stable Renal function improving Hold nephrotoxin Continue to monitor renal function daily Atrial fibrillation Continue Eliquis Hyperlipidemia Continue statin Depression Continue Celexa DVT prophylaxis: Eliquis CODE STATUS: Full code Discharge plan/next site of care: Pending workup hospital course, likely back to home Objective - Vital Signs Vital signs: Vital Signs Temp 98.0 F 05/02/22 08:00 Pulse 78 05/02/22 14:00 Resp 16 05/02/22 14:00 BP 95/46 05/02/22 12:00 Pulse Ox 98 05/02/22 12:00 FiO2 Intake & Output 05/01/22 05/02/22 05/02/22 18:59 06:59 18:59 Intake Total 48.079 12.767 Output Total 200 Balance 48.079 -187.233 Weight 72.575 kg 72.575 kg Intake: Intake, IV Titration 48.079 12.767 Amount Insulin Regular 100 unit 48.079 12.767 In Sodium Chloride 0.9% 100 ml @ 0.1 UNITS/KG/HR 7.33 mls/hr IV .[id number] [facility] Rx#:[id number] Output: Urine 200 Other: Voiding Method Toilet # Voids 2 General: non toxic, no acute distress, alert oriented to time place and person Head: atraumatic, normocephalic, symmetric Eyes: no lid lesion], anicteric sclera Mouth: no lip lesion, mucus membranes moist Cardiovascular: S1S2 reg rate and rhythm, no murmur, no gallop Lungs: Bilateral equal air entry, no wheezing no rhonchi no crackles. Abdominal: soft, nontender to palpation, no guarding, no appreciable orga nomegaly Ext: no gross muscle atrophy, no edema extremities warm to suppose a positive Neuro: Alert oriented to time place and person, exam grossly nonfocal Psych: Mood and affect appropriate, patient not so certain Skin exam: No rashes no jaundice. - Labs CBC & Chem 7: 05/02/22 04:16 05/02/22 12:43 Labs: Abnormal Lab Results - Last 24 Hours (Table) 05/01/22 05/01/22 05/01/22 Range/Units 16:04 16:04 16:04 RBC (3.80-5.40) m/uL Hgb (11.4-16.0) gm/dL Hct (34.0-46.0) % APTT 20.0 L (22.0-30.0) sec VBG pCO2 (37-51) mmHg VBG HCO3 (24-28) mmol/L Sodium 129 L (137-145) mmol/L Potassium 5.5 H (3.5-5.1) mmol/L Chloride 88 L (98-107) mmol/L Carbon Dioxide 13 L (22-30) mmol/L BUN 45 H (7-17) mg/dL Creatinine 1.88 H (0.52-1.04) mg/dL Glucose 757 H* (74-99) mg/dL POC Glucose (mg/dL) (75-99) mg/dL Plasma Lactic Acid Apolinar 3.8 H* (0.7-2.0) mmol/L Calcium 10.3 H (8.4-10.2) mg/dL Phosphorus (2.5-4.5) mg/dL Alkaline Phosphatase (38-126) U/L Total Protein 8.5 H (6.3-8.2) g/dL Albumin 5.2 H (3.5-5.0) g/dL Urine Glucose (UA) (Negative) Urine Ketones (Negative) Ur Leukocyte Esterase (Negative) Urine WBC (0-5) /hpf Hyaline Casts (0-2) /lpf Urine Mucus (None) /hpf 05/01/22 05/01/22 05/01/22 Range/Units 17:16 17:29 18:11 RBC 3.75 L (3.80-5.40) m/uL Hgb 11.2 L (11.4-16.0) gm/dL Hct (34.0-46.0) % APTT (22.0-30.0) sec VBG pCO2 36 L (37-51) mmHg VBG HCO3 19 L (24-28) mmol/L Sodium (137-145) mmol/L Potassium (3.5-5.1) mmol/L Chloride (98-107) mmol/L Carbon Dioxide (22-30) mmol/L BUN (7-17) mg/dL Creatinine (0.52-1.04) mg/dL Glucose (74-99) mg/dL POC Glucose (mg/dL) >600 H (75-99) mg/dL Plasma Lactic Acid Apolinar (0.7-2.0) mmol/L Calcium (8.4-10.2) mg/dL Phosphorus (2.5-4.5) mg/dL Alkaline Phosphatase (38-126) U/L Total Protein (6.3-8.2) g/dL Albumin (3.5-5.0) g/dL Urine Glucose (UA) (Negative) Urine Ketones (Negative) Ur Leukocyte Esterase (Negative) Urine WBC (0-5) /hpf Hyaline Casts (0-2) /lpf Urine Mucus (None) /hpf 05/01/22 05/01/22 05/01/22 Range/Units 18:11 19:00 19:12 RBC (3.80-5.40) m/uL Hgb (11.4-16.0) gm/dL Hct (34.0-46.0) % APTT (22.0-30.0) sec VBG pCO2 (37-51) mmHg VBG HCO3 (24-28) mmol/L Sodium (137-145) mmol/L Potassium (3.5-5.1) mmol/L Chloride (98-107) mmol/L Carbon Dioxide (22-30) mmol/L BUN (7-17) mg/dL Creatinine (0.52-1.04) mg/dL Glucose (74-99) mg/dL POC Glucose (mg/dL) 474 H 446 H (75-99) mg/dL Plasma Lactic Acid Apolinar (0.7-2.0) mmol/L Calcium (8.4-10.2) mg/dL Phosphorus (2.5-4.5) mg/dL Alkaline Phosphatase (38-126) U/L Total Protein (6.3-8.2) g/dL Albumin (3.5-5.0) g/dL Urine Glucose (UA) 4+ H (Negative) Urine Ketones 2+ H (Negative) Ur Leukocyte Esterase Moderate H (Negative) Urine WBC 19 H (0-5) /hpf Hyaline Casts 7 H (0-2) /lpf Urine Mucus Rare H (None) /hpf 05/01/22 05/01/22 05/01/22 Range/Units 20:01 21:05 21:39 RBC (3.80-5.40) m/uL Hgb (11.4-16.0) gm/dL Hct (34.0-46.0) % APTT (22.0-30.0) sec VBG pCO2 (37-51) mmHg VBG HCO3 (24-28) mmol/L Sodium (137-145) mmol/L Potassium (3.5-5.1) mmol/L Chloride (98-107) mmol/L Carbon Dioxide (22-30) mmol/L BUN 41 H (7-17) mg/dL Creatinine 1.14 H (0.52-1.04) mg/dL Glucose 159 H (74-99) mg/dL POC Glucose (mg/dL) 301 H 215 H (75-99) mg/dL Plasma Lactic Acid Apolinar (0.7-2.0) mmol/L Calcium (8.4-10.2) mg/dL Phosphorus 2.3 L (2.5-4.5) mg/dL Alkaline Phosphatase 28 L (38-126) U/L Total Protein (6.3-8.2) g/dL Albumin (3.5-5.0) g/dL Urine Glucose (UA) (Negative) Urine Ketones (Negative) Ur Leukocyte Esterase (Negative) Urine WBC (0-5) /hpf Hyaline Casts (0-2) /lpf Urine Mucus (None) /hpf 05/01/22 05/01/22 05/01/22 Range/Units 21:39 22:07 22:56 RBC (3.80-5.40) m/uL Hgb (11.4-16.0) gm/dL Hct (34.0-46.0) % APTT (22.0-30.0) sec VBG pCO2 (37-51) mmHg VBG HCO3 (24-28) mmol/L Sodium (137-145) mmol/L Potassium (3.5-5.1) mmol/L Chloride (98-107) mmol/L Carbon Dioxide (22-30) mmol/L BUN (7-17) mg/dL Creatinine (0.52-1.04) mg/dL Glucose (74-99) mg/dL POC Glucose (mg/dL) 156 H 127 H (75-99) mg/dL Plasma Lactic Acid Apolinar 2.6 H* (0.7-2.0) mmol/L Calcium (8.4-10.2) mg/dL Phosphorus (2.5-4.5) mg/dL Alkaline Phosphatase (38-126) U/L Total Protein (6.3-8.2) g/dL Albumin (3.5-5.0) g/dL Urine Glucose (UA) (Negative) Urine Ketones (Negative) Ur Leukocyte Esterase (Negative) Urine WBC (0-5) /hpf Hyaline Casts (0-2) /lpf Urine Mucus (None) /hpf 05/02/22 05/02/22 05/02/22 Range/Units 01:06 02:05 04:16 RBC 3.27 L (3.80-5.40) m/uL Hgb 10.0 L (11.4-16.0) gm/dL Hct 30.6 L (34.0-46.0) % APTT (22.0-30.0) sec VBG pCO2 (37-51) mmHg VBG HCO3 (24-28) mmol/L Sodium (137-145) mmol/L Potassium (3.5-5.1) mmol/L Chloride (98-107) mmol/L Carbon Dioxide (22-30) mmol/L BUN (7-17) mg/dL Creatinine (0.52-1.04) mg/dL Glucose (74-99) mg/dL POC Glucose (mg/dL) 121 H 146 H (75-99) mg/dL Plasma Lactic Acid Apolinar (0.7-2.0) mmol/L Calcium (8.4-10.2) mg/dL Phosphorus (2.5-4.5) mg/dL Alkaline Phosphatase (38-126) U/L Total Protein (6.3-8.2) g/dL Albumin (3.5-5.0) g/dL Urine Glucose (UA) (Negative) Urine Ketones (Negative) Ur Leukocyte Esterase (Negative) Urine WBC (0-5) /hpf Hyaline Casts (0-2) /lpf Urine Mucus (None) /hpf 05/02/22 05/02/22 05/02/22 Range/Units 04:16 04:20 05:08 RBC (3.80-5.40) m/uL Hgb (11.4-16.0) gm/dL Hct (34.0-46.0) % APTT (22.0-30.0) sec VBG pCO2 (37-51) mmHg VBG HCO3 (24-28) mmol/L Sodium 135 L (137-145) mmol/L Potassium (3.5-5.1) mmol/L Chloride (98-107) mmol/L Carbon Dioxide 20 L (22-30) mmol/L BUN 34 H (7-17) mg/dL Creatinine (0.52-1.04) mg/dL Glucose 240 H (74-99) mg/dL POC Glucose (mg/dL) 260 H 306 H (75-99) mg/dL Plasma Lactic Acid Apolinar (0.7-2.0) mmol/L Calcium (8.4-10.2) mg/dL Phosphorus (2.5-4.5) mg/dL Alkaline Phosphatase 31 L (38-126) U/L Total Protein 6.1 L (6.3-8.2) g/dL Albumin (3.5-5.0) g/dL Urine Glucose (UA) (Negative) Urine Ketones (Negative) Ur Leukocyte Esterase (Negative) Urine WBC (0-5) /hpf Hyaline Casts (0-2) /lpf Urine Mucus (None) /hpf 05/02/22 05/02/22 05/02/22 Range/Units 05:58 06:57 08:04 RBC (3.80-5.40) m/uL Hgb (11.4-16.0) gm/dL Hct (34.0-46.0) % APTT (22.0-30.0) sec VBG pCO2 (37-51) mmHg VBG HCO3 (24-28) mmol/L Sodium (137-145) mmol/L Potassium (3.5-5.1) mmol/L Chloride (98-107) mmol/L Carbon Dioxide (22-30) mmol/L BUN (7-17) mg/dL Creatinine (0.52-1.04) mg/dL Glucose (74-99) mg/dL POC Glucose (mg/dL) 316 H 259 H 249 H (75-99) mg/dL Plasma Lactic Acid Apolinar (0.7-2.0) mmol/L Calcium (8.4-10.2) mg/dL Phosphorus (2.5-4.5) mg/dL Alkaline Phosphatase (38-126) U/L Total Protein (6.3-8.2) g/dL Albumin (3.5-5.0) g/dL Urine Glucose (UA) (Negative) Urine Ketones (Negative) Ur Leukocyte Esterase (Negative) Urine WBC (0-5) /hpf Hyaline Casts (0-2) /lpf Urine Mucus (None) /hpf 05/02/22 05/02/22 05/02/22 Range/Units 09:02 10:00 11:08 RBC (3.80-5.40) m/uL Hgb (11.4-16.0) gm/dL Hct (34.0-46.0) % APTT (22.0-30.0) sec VBG pCO2 (37-51) mmHg VBG HCO3 (24-28) mmol/L Sodium (137-145) mmol/L Potassium (3.5-5.1) mmol/L Chloride (98-107) mmol/L Carbon Dioxide (22-30) mmol/L BUN (7-17) mg/dL Creatinine (0.52-1.04) mg/dL Glucose (74-99) mg/dL POC Glucose (mg/dL) 138 H 135 H 112 H (75-99) mg/dL Plasma Lactic Acid Apolinar (0.7-2.0) mmol/L Calcium (8.4-10.2) mg/dL Phosphorus (2.5-4.5) mg/dL Alkaline Phosphatase (38-126) U/L Total Protein (6.3-8.2) g/dL Albumin (3.5-5.0) g/dL Urine Glucose (UA) (Negative) Urine Ketones (Negative) Ur Leukocyte Esterase (Negative) Urine WBC (0-5) /hpf Hyaline Casts (0-2) /lpf Urine Mucus (None) /hpf 05/02/22 05/02/22 Range/Units 12:00 12:43 RBC (3.80-5.40) m/uL Hgb (11.4-16.0) gm/dL Hct (34.0-46.0) % APTT (22.0-30.0) sec VBG pCO2 (37-51) mmHg VBG HCO3 (24-28) mmol/L Sodium 136 L (137-145) mmol/L Potassium (3.5-5.1) mmol/L Chloride (98-107) mmol/L Carbon Dioxide 19 L (22-30) mmol/L BUN 26 H (7-17) mg/dL Creatinine (0.52-1.04) mg/dL Glucose 182 H (74-99) mg/dL POC Glucose (mg/dL) 136 H (75-99) mg/dL Plasma Lactic Acid Apolinar (0.7-2.0) mmol/L Calcium (8.4-10.2) mg/dL Phosphorus (2.5-4.5) mg/dL Alkaline Phosphatase (38-126) U/L Total Protein (6.3-8.2) g/dL Albumin (3.5-5.0) g/dL Urine Glucose (UA) (Negative) Urine Ketones (Negative) Ur Leukocyte Esterase (Negative) Urine WBC (0-5) /hpf Hyaline Casts (0-2) /lpf Urine Mucus (None) /hpf Microbiology - Last 24 Hours (Table) 05/01/22 19:00 Urine Culture - Preliminary Urine,Voided
[2022-05-02 16:27] LABS: Glucose,Whole Blood 148 mg/dL (75-99)
[2022-05-02] MEDS: CITALOPRAM HYDROBROMIDE 10 MG TAB PO SCH (17:30)
[2022-05-02 20:05] LABS: Glucose,Whole Blood 133 mg/dL (75-99)
[2022-05-02] MEDS: ATORVASTATIN 20 MG TAB PO SCH (20:30)
[2022-05-02] MEDS ORDERED: INSULIN DETEMIR (LEVEMIR) 100 UNIT/ML SYR SQ SCH (21:00)
[2022-05-03 06:43] LABS: Basophils % (A) 0 %; Eosinophils # (A) 0.1 k/uL (0-0.7); Eosinophils % (A) 1 %; HCT 34.2 % (34.0-46.0); Lymphocytes # (A) 1.5 k/uL (1.0-4.8); Lymphocytes % (A) 27 %; MCH 30.5 pg (25.0-35.0); MCHC 32.2 g/dL (31.0-37.0); MCV 94.5 fL (80.0-100.0); Mean Platelet Volume 7.6; Monocytes # (A) 0.3 k/uL (0-1.0); Monocytes % (A) 6 %; Neutrophils # (A) 3.6 k/uL (1.3-7.7); Neutrophils % (A) 65 %; Platelet Count 193 k/uL (150-450); RBC 3.62 m/uL (3.80-5.40); RDW 11.9 % (11.5-15.5); WBC 5.6 k/uL (3.8-10.6)
[2022-05-03 07:12] LABS: ALT 13 U/L (4-34); AST 29 U/L (14-36); African American GFR (CKD) >90 (>60 ml/min/1.73 sqM); Albumin 3.4 g/dL (3.5-5.0); Alkaline Phosphatase 22 U/L (38-126); Anion Gap 7 mmol/L; Blood Urea Nitrogen 14 mg/dL (7-17); Calcium 8.6 mg/dL (8.4-10.2); Carbon Dioxide 19 mmol/L (22-30); Chloride 111 mmol/L (98-107); Non-African American GFR(CKD) 89 (>60 ml/min/1.73 sqM); Potassium 3.9 mmol/L (3.5-5.1); Sodium 137 mmol/L (137-145); Total Bilirubin 0.6 mg/dL (0.2-1.3); Total Protein 6.2 g/dL (6.3-8.2)
[2022-05-03 07:16] LABS: Glucose,Whole Blood 48 mg/dL (75-99)
[2022-05-03 07:18] LABS: Glucose,Whole Blood 43 mg/dL (75-99)
[2022-05-03] MEDS: INSULIN ASPART (NovoLOG) 100 UNIT/ML VIAL SQ SCH ×7 (07:20→20:52)
[2022-05-03 07:29] LABS: Glucose 34 mg/dL (74-99)
[2022-05-03 07:39] LABS: Glucose,Whole Blood 59 mg/dL (75-99)
[2022-05-03 08:08] LABS: Glucose,Whole Blood 159 mg/dL (75-99)
[2022-05-03] MEDS: CITALOPRAM HYDROBROMIDE 10 MG TAB PO SCH (09:24)
[2022-05-03] MEDS: ASPIRIN 81 MG PO SCH (09:24)
[2022-05-03] MEDS: APIXABAN 5 MG TAB PO SCH ×2 (09:24→20:52)
[2022-05-03] MEDS: METOPROLOL TARTRATE 12.5 MG TAB PO SCH ×2 (09:26→20:52)
--- NOTE | 2022-05-03 11:40 | P.PN ---
Subjective Patient was examined at bedside today not complaining any new symptoms otology. Patient states that she is compliant with her home insulin regimen. Regarding her urinary tract infection she does complain of frequency currently on antimicrobials. In the morning patient's glucose level 43 appropriate resuscitation with dextrose was given. Case discussed with RN. Objective - Vital Signs Vital signs: Vital Signs Temp 97.6 F 05/03/22 11:24 Pulse 78 05/03/22 11:24 Resp 16 05/03/22 11:24 BP 130/69 05/03/22 11:24 Pulse Ox 97 05/03/22 11:24 FiO2 Intake & Output 05/02/22 05/03/22 05/03/22 18:59 06:59 18:59 Intake Total 12.767 500 Output Total 500 Balance -487.233 500 Intake: Intake, IV Titration 12.767 Amount Insulin Regular 100 unit 12.767 In Sodium Chloride 0.9% 100 ml @ 0.1 UNITS/KG/HR 7.33 mls/hr IV .[id number] [facility] Rx#:[id number] Oral 500 Output: Urine 500 Other: Voiding Method Toilet Toilet # Voids 2 1 - Exam General: non toxic, no acute distress, alert oriented to time place and person Head: atraumatic, normocephalic, symmetric Eyes: no lid lesion], anicteric sclera Mouth: no lip lesion, mucus membranes moist Cardiovascular: S1S2 reg rate and rhythm, no murmur, no gallop Lungs: Bilateral equal air entry, no wheezing no rhonchi no crackles. Abdominal: soft, nontender to palpation, no guarding, no appreciable organomegaly Ext: no gross muscle atrophy, no edema extremities warm to suppose a positive Neuro: Alert oriented to time place and person, exam grossly nonfocal Psych: Mood and affect appropriate, patient not so certain Skin exam: No rashes no jaundice. - Labs CBC & Chem 7: 05/03/22 05:30 05/03/22 05:30 Labs: Abnormal Lab Results - Last 24 Hours (Table) 05/02/22 05/02/22 05/02/22 Range/Units 12:00 12:43 12:43 RBC (3.80-5.40) m/uL Hgb (11.4-16.0) gm/dL Sodium 136 L (137-145) mmol/L Chloride (98-107) mmol/L Carbon Dioxide 19 L (22-30) mmol/L BUN 26 H (7-17) mg/dL Glucose 182 H (74-99) mg/dL POC Glucose (mg/dL) 136 H (75-99) mg/dL Hemoglobin A1c 10.8 H (0.0-6.0) % Alkaline Phosphatase (38-126) U/L Total Protein (6.3-8.2) g/dL Albumin (3.5-5.0) g/dL 05/02/22 05/02/22 05/03/22 Range/Units 16:25 20:02 05:30 RBC 3.62 L (3.80-5.40) m/uL Hgb 11.0 L (11.4-16.0) gm/dL Sodium (137-145) mmol/L Chloride (98-107) mmol/L Carbon Dioxide (22-30) mmol/L BUN (7-17) mg/dL Glucose (74-99) mg/dL POC Glucose (mg/dL) 148 H 133 H (75-99) mg/dL Hemoglobin A1c (0.0-6.0) % Alkaline Phosphatase (38-126) U/L Total Protein (6.3-8.2) g/dL Albumin (3.5-5.0) g/dL 05/03/22 05/03/22 05/03/22 Range/Units 05:30 07:14 07:16 RBC (3.80-5.40) m/uL Hgb (11.4-16.0) gm/dL Sodium (137-145) mmol/L Chloride 111 H (98-107) mmol/L Carbon Dioxide 19 L (22-30) mmol/L BUN (7-17) mg/dL Glucose 34 L* (74-99) mg/dL POC Glucose (mg/dL) 48 L 43 L (75-99) mg/dL Hemoglobin A1c (0.0-6.0) % Alkaline Phosphatase 22 L (38-126) U/L Total Protein 6.2 L (6.3-8.2) g/dL Albumin 3.4 L (3.5-5.0) g/dL 05/03/22 05/03/22 Range/Units 07:38 08:06 RBC (3.80-5.40) m/uL Hgb (11.4-16.0) gm/dL Sodium (137-145) mmol/L Chloride (98-107) mmol/L Carbon Dioxide (22-30) mmol/L BUN (7-17) mg/dL Glucose (74-99) mg/dL POC Glucose (mg/dL) 59 L 159 H (75-99) mg/dL Hemoglobin A1c (0.0-6.0) % Alkaline Phosphatase (38-126) U/L Total Protein (6.3-8.2) g/dL Albumin (3.5-5.0) g/dL Microbiology - Last 24 Hours (Table) 05/01/22 19:00 Urine Culture - Final Urine,Voided Assessment and Plan Assessment: Diabetes mellitus type II with DKA Provocative factor unclear, patient reports compliance with the medication, questionable if due to urinary tract infection Patient anion gap closed, she is able to eat and drink Advance diet Discontinue IV insulin drip switching to subcutaneous insulin Continues on sliding scale Insulin regimen has been adjusted and decreased to 9 units of Levemir at bedtime and 6 units 3 times a day. Monitor for any signs of hypoglycemia. Urinary tract infection Follow-up cultures Continue ceftriaxone FREDRICK Stable Renal function improving Hold nephrotoxin Continue to monitor renal function daily Atrial fibrillation Continue Eliquis Hyperlipidemia Continue statin Depression Continue Celexa DVT prophylaxis: Eliquis CODE STATUS: Full code Discharge plan/next site of care: Pending workup hospital course, likely back to home
[2022-05-03 11:58] LABS: Glucose,Whole Blood 251 mg/dL (75-99)
[2022-05-03 13:47] VITALS: BMI 28.3
[2022-05-03 16:39] LABS: Glucose,Whole Blood 55 mg/dL (75-99)
[2022-05-03 17:09] LABS: Glucose,Whole Blood 116 mg/dL (75-99)
[2022-05-03 20:46] LABS: Glucose,Whole Blood 495 mg/dL (75-99)
[2022-05-03] MEDS: ATORVASTATIN 20 MG TAB PO SCH (20:52)
[2022-05-03] MEDS: INSULIN DETEMIR (LEVEMIR) 100 UNIT/ML SYR SQ SCH (20:52)
[2022-05-04 02:03] LABS: Glucose,Whole Blood 53 mg/dL (75-99)
[2022-05-04 03:11] LABS: Glucose,Whole Blood 189 mg/dL (75-99)
[2022-05-04 06:19] LABS: Glucose,Whole Blood 245 mg/dL (75-99)
[2022-05-04] MEDS: INSULIN ASPART (NovoLOG) 100 UNIT/ML VIAL SQ SCH ×7 (06:44→20:41)
[2022-05-04] MEDS: APIXABAN 5 MG TAB PO SCH ×2 (08:13→20:42)
[2022-05-04] MEDS: CITALOPRAM HYDROBROMIDE 10 MG TAB PO SCH (08:14)
[2022-05-04] MEDS: ASPIRIN 81 MG PO SCH (08:14)
[2022-05-04] MEDS: METOPROLOL TARTRATE 12.5 MG TAB PO SCH ×2 (08:14→20:42)
[2022-05-04 09:00] LABS: Glucose,Whole Blood 153 mg/dL (75-99)
[2022-05-04 12:31] LABS: Glucose,Whole Blood 334 mg/dL (75-99)
[2022-05-04 15:37] LABS: Glucose,Whole Blood 130 mg/dL (75-99)
[2022-05-04 15:56] LABS: Basophils % (A) 0 %; Eosinophils # (A) 0.1 k/uL (0-0.7); Eosinophils % (A) 2 %; HCT 36.9 % (34.0-46.0); HGB 11.9 gm/dL (11.4-16.0); Lymphocytes # (A) 0.9 k/uL (1.0-4.8); Lymphocytes % (A) 20 %; MCH 30.3 pg (25.0-35.0); MCHC 32.3 g/dL (31.0-37.0); MCV 93.9 fL (80.0-100.0); Mean Platelet Volume 7.7; Monocytes # (A) 0.3 k/uL (0-1.0); Monocytes % (A) 7 %; Neutrophils # (A) 2.9 k/uL (1.3-7.7); Neutrophils % (A) 69 %; Platelet Count 184 k/uL (150-450); RBC 3.93 m/uL (3.80-5.40); RDW 11.7 % (11.5-15.5); WBC 4.2 k/uL (3.8-10.6)
[2022-05-04 16:05] LABS: African American GFR (CKD) >90 (>60 ml/min/1.73 sqM); Anion Gap 6 mmol/L; Blood Urea Nitrogen 15 mg/dL (7-17); Calcium 9.1 mg/dL (8.4-10.2); Carbon Dioxide 27 mmol/L (22-30); Chloride 101 mmol/L (98-107); Glucose 121 mg/dL (74-99); Non-African American GFR(CKD) 81 (>60 ml/min/1.73 sqM); Potassium 4.7 mmol/L (3.5-5.1); Sodium 134 mmol/L (137-145)
--- NOTE | 2022-05-04 16:17 | P.PN ---
Subjective Patient was examined at bedside denies any episodes of hypoglycemia however overnight patient's glucose levels did dip down to 53 again. We have made adjustments to her insulin regimen and we will continue to monitor for another 24 hours. Objective - Vital Signs Vital signs: Vital Signs Temp 97.9 F 05/04/22 15:05 Pulse 91 05/04/22 15:05 Resp 16 05/04/22 15:05 BP 112/65 05/04/22 15:05 Pulse Ox 97 05/04/22 15:05 FiO2 Intake & Output 05/03/22 05/04/22 05/04/22 18:59 06:59 18:59 Intake Total 1020 1170 Balance 1020 1170 Weight 72.575 kg Intake: IV 70 Invasive Line 2 20 cefTRIAXone 1 gm In 50 Sodium Chloride 0.9% 50 ml @ 100 mls/hr IVPB Q24HR [facility] Rx#:[id number] Oral 1020 1100 Other: Voiding Method Toilet # Voids 2 1 2 - Exam General: non toxic, no acute distress, alert oriented to time place and person Head: atraumatic, normocephalic, symmetric Eyes: no lid lesion], anicteric sclera Mouth: no lip lesion, mucus membranes moist Cardiovascular: S1S2 reg rate and rhythm, no murmur, no gallop Lungs: Bilateral equal air entry, no wheezing no rhonchi no crackles. Abdominal: soft, nontender to palpation, no guarding, no appreciable organomegaly Ext: no gross muscle atrophy, no edema extremities warm to suppose a positive Neuro: Alert oriented to time place and person, exam grossly nonfocal Psych: Mood and affect appropriate, patient not so certain Skin exam: No rashes no jaundice. - Labs CBC & Chem 7: 05/04/22 15:29 05/04/22 15:29 Labs: Abnormal Lab Results - Last 24 Hours (Table) 05/03/22 05/03/22 05/03/22 Range/Units 16:37 17:06 20:42 Lymphocytes # (1.0-4.8) k/uL Sodium (137-145) mmol/L Glucose (74-99) mg/dL POC Glucose (mg/dL) 55 L 116 H 495 H (75-99) mg/dL 05/04/22 05/04/22 05/04/22 Range/Units 02:02 03:09 06:17 Lymphocytes # (1.0-4.8) k/uL Sodium (137-145) mmol/L Glucose (74-99) mg/dL POC Glucose (mg/dL) 53 L 189 H 245 H (75-99) mg/dL 05/04/22 05/04/22 05/04/22 Range/Units 08:59 12:29 15:29 Lymphocytes # 0.9 L (1.0-4.8) k/uL Sodium (137-145) mmol/L Glucose (74-99) mg/dL POC Glucose (mg/dL) 153 H 334 H (75-99) mg/dL 05/04/22 05/04/22 Range/Units 15:29 15:35 Lymphocytes # (1.0-4.8) k/uL Sodium 134 L (137-145) mmol/L Glucose 121 H (74-99) mg/dL POC Glucose (mg/dL) 130 H (75-99) mg/dL Assessment and Plan Assessment: Diabetes mellitus type II with DKA Provocative factor unclear, patient reports compliance with the medication, questionable if due to urinary tract infection Patient anion gap closed, she is able to eat and drink Advance diet Discontinue IV insulin drip switching to subcutaneous insulin Continues on sliding scale Insulin regimen has been adjusted and decreased to 9 units of Levemir at bedtime and 3 units 3 times a day. Monitor for any signs of hypoglycemia. Urinary tract infection Follow-up cultures Continue ceftriaxone FREDRICK Stable Renal function improving Hold nephrotoxin Continue to monitor renal function daily Atrial fibrillation Continue Eliquis Hyperlipidemia Continue statin Depression Continue Celexa DVT prophylaxis: Eliquis CODE STATUS: Full code Discharge plan/next site of care: Pending workup hospital course, likely back to home
[2022-05-04 17:08] LABS: Glucose,Whole Blood 98 mg/dL (75-99)
[2022-05-04 19:43] LABS: Glucose,Whole Blood 200 mg/dL (75-99)
[2022-05-04] MEDS: INSULIN DETEMIR (LEVEMIR) 100 UNIT/ML SYR SQ SCH (20:41)
[2022-05-04] MEDS: ATORVASTATIN 20 MG TAB PO SCH (20:42)
[2022-05-05 02:10] LABS: Glucose,Whole Blood 241 mg/dL (75-99)
[2022-05-05 06:07] LABS: Glucose,Whole Blood 253 mg/dL (75-99)
[2022-05-05 07:25] LABS: Glucose,Whole Blood 229 mg/dL (75-99)
[2022-05-05] MEDS: INSULIN ASPART (NovoLOG) 100 UNIT/ML VIAL SQ SCH ×4 (07:31→12:18)
[2022-05-05 08:01] LABS: Basophils % (A) 0 %; Eosinophils # (A) 0.1 k/uL (0-0.7); Eosinophils % (A) 3 %; HCT 35.4 % (34.0-46.0); HGB 11.6 gm/dL (11.4-16.0); Lymphocytes # (A) 1.1 k/uL (1.0-4.8); Lymphocytes % (A) 25 %; MCH 30.6 pg (25.0-35.0); MCHC 32.6 g/dL (31.0-37.0); MCV 93.7 fL (80.0-100.0); Mean Platelet Volume 7.7; Monocytes # (A) 0.2 k/uL (0-1.0); Monocytes % (A) 6 %; Neutrophils # (A) 2.7 k/uL (1.3-7.7); Neutrophils % (A) 64 %; Platelet Count 196 k/uL (150-450); RBC 3.78 m/uL (3.80-5.40); RDW 11.8 % (11.5-15.5); WBC 4.2 k/uL (3.8-10.6)
[2022-05-05 08:12] LABS: African American GFR (CKD) >90 (>60 ml/min/1.73 sqM); Anion Gap 7 mmol/L; Blood Urea Nitrogen 13 mg/dL (7-17); Calcium 9.1 mg/dL (8.4-10.2); Carbon Dioxide 26 mmol/L (22-30); Chloride 102 mmol/L (98-107); Glucose 223 mg/dL (74-99); Non-African American GFR(CKD) 89 (>60 ml/min/1.73 sqM); Potassium 4.3 mmol/L (3.5-5.1); Sodium 135 mmol/L (137-145)
[2022-05-05 08:38] VITALS: RESP 16
[2022-05-05] MEDS: APIXABAN 5 MG TAB PO SCH (08:42)
[2022-05-05] MEDS: ASPIRIN 81 MG PO SCH (08:42)
[2022-05-05] MEDS: CITALOPRAM HYDROBROMIDE 10 MG TAB PO SCH (08:42)
[2022-05-05] MEDS: METOPROLOL TARTRATE 12.5 MG TAB PO SCH (08:42)
[2022-05-05 12:00] LABS: Glucose,Whole Blood 142 mg/dL (75-99)
[2022-05-05 12:13] VITALS: BP 110/69; PULSE 81; TEMP 97.6
--- NOTE | 2022-05-05 14:21 | P.DS ---
Providers Date of admission: 05/01/22 17:26 Attending physician: Rui Fulton MD Primary care physician: [facility] Hospital Course: This is 66-year-old white female who reported to the hospital with lethargy associated with hyperglycemia with nausea vomiting and diarrhea but has been going on for the past couple days. She also reports subjective fever at home. She denies dysuria, no hematuria, no chest pain or shortness of breath. She denies dizziness or loss of consciousness. She denies abdominal pain. She states that she continues to take her insulin like prescribed. She has history of DKA once before. At the time of examination patient is lethargic but does not appear to be in distress Patient's hemoglobin A1c was found to be 10.8. She was apparently started on 90 units at bedtime Levemir and short-acting NovoLog 3 units 3 times a day with meals. At this time patient is to see glucose levels have been stable. She does have episodes where she becomes hypoglycemic. Provided education regarding medication compliance and monitoring her home and following up with PCP. Patient Condition at Discharge: Serious Plan - Discharge Summary Discharge Rx Participant: Yes New Discharge Prescriptions: New Insulin Glargine [Lantus Vial] 9 unit SQ HS #10 ml Nitrofurantoin Monohyd/M-Cryst [Macrobid] 100 mg PO Q12HR 2 Days cap INSULIN ASPART (NovoLOG) [NovoLOG (formulary)] 3 unit SQ AC-TID #1 each Continue Apixaban [Eliquis] 5 mg PO BID #60 tab Aspirin 81 mg PO DAILY 30 Days #30 tab Metoprolol Tartrate [Lopressor] 12.5 mg PO BID Citalopram Hydrobromide [CeleXA] 10 mg PO DAILY Multivit-Min/Iron/Folic/Lutein [Centrum Silver Women Tablet] 2 tab PO DAILY Atorvastatin [Lipitor] 20 mg PO HS Calcium Carbonate/Vitamin D3 [Calcium 500 mg-Vit D3 5 mcg (200 Unit)] 1 tab PO BID Discontinued Insulin Aspart [NovoLOG Flexpen] 10 units SQ AC-TID Polyvinyl Alcohol/Povidone [[place] Eye Drop] 1 drop BOTH EYES QID PRN PRN Reason: Allergy Symptoms Sodium Chloride 5% Ophth Oint [Briseida 128] 1 applic LEFT EYE HS Insulin Glargine,Hum.rec.anlog [Lantus Solostar Pen] 12 units SQ HS Discharge Medication List Apixaban [Eliquis] 5 mg PO BID #60 tab 05/19/21 [Rx] Aspirin 81 mg PO DAILY 30 Days #30 tab 10/01/21 [Rx] Citalopram Hydrobromide [CeleXA] 10 mg PO DAILY 12/03/21 [History] Metoprolol Tartrate [Lopressor] 12.5 mg PO BID 12/03/21 [History] Multivit-Min/Iron/Folic/Lutein [Centrum Silver Women Tablet] 2 tab PO DAILY 02/23/22 [History] Atorvastatin [Lipitor] 20 mg PO HS 05/01/22 [History] Calcium Carbonate/Vitamin D3 [Calcium 500 mg-Vit D3 5 mcg (200 Unit)] 1 tab PO BID 05/01/22 [History] INSULIN ASPART (NovoLOG) [NovoLOG (formulary)] 3 unit SQ AC-TID #1 each 05/05/22 [Rx] Insulin Glargine [Lantus Vial] 9 unit SQ HS #10 ml 05/05/22 [Rx] Nitrofurantoin Monohyd/M-Cryst [Macrobid] 100 mg PO Q12HR 2 Days cap 05/05/22 [Rx] Follow up Appointment(s)/Referral(s): [facility],Clinic [Primary Care Provider] - 1-2 days Patient Instructions/Handouts: Urinary Tract Infection in Women (ED), Diabetic Ketoacidosis (DC), Foot Care for People with Diabetes (ED), Basic Carbohydrate Counting (DC), Meal Planning with the Plate Method (DC), Meal Planning with Diabetes Exchanges (DC), What to Do if Your Blood Sugar is Low (ED) Discharge Disposition: HOME SELF-CARE
== END 2022-05-05 15:43 | disposition home or self-care (01) | DRG 638 ==
LOC: EC 14:55 → 3SCARD 17:26
PROVIDERS: ADMIT Internal Medicine; ATTEND Internal Medicine
DX: E11.10 Type 2 diabetes mellitus with ketoacidosis without coma (principal); N17.9 Acute kidney failure, unspecified; N39.0 Urinary tract infection, site not specified; I48.20 Chronic atrial fibrillation, unspecified; E78.5 Hyperlipidemia, unspecified; E86.1 Hypovolemia; E87.5 Hyperkalemia; F32.A Depression, unspecified; G40.909 Epilepsy, unspecified, not intractable, without status epilepticus; Z79.01 Long term (current) use of anticoagulants; Z79.4 Long term (current) use of insulin; Z79.82 Long term (current) use of aspirin; Z79.899 Other long term (current) drug therapy; Z90.721 Acquired absence of ovaries, unilateral; Z86.73 Personal history of transient ischemic attack (TIA), and cerebral infarction without residual deficits; Z82.49 Family history of ischemic heart disease and other diseases of the circulatory system
CPT/HCPCS: 36415; 71045; 80048; 80053; 81001; 82009; 82803; 83036; 83605; 83690; 84100; 84484; 85025; 85027; 85610; 85730; 87086; 93005; 96360; 96374; 96375; 99285; 99291

== ENCOUNTER 2022-06-29 11:14 | Observation (INO) | payer MEDICARE ==
[2022-06-29 11:55] LABS: Basophils % (A) 0 %; Eosinophils % (A) 1 %; HCT 37.8 % (34.0-46.0); HGB 12.4 gm/dL (11.4-16.0); Lymphocytes # (A) 0.5 k/uL (1.0-4.8); Lymphocytes % (A) 6 %; MCH 30.6 pg (25.0-35.0); MCHC 32.7 g/dL (31.0-37.0); MCV 93.6 fL (80.0-100.0); Mean Platelet Volume 7.7; Monocytes # (A) 0.3 k/uL (0-1.0); Monocytes % (A) 4 %; Neutrophils # (A) 7.6 k/uL (1.3-7.7); Neutrophils % (A) 89 %; Platelet Count 252 k/uL (150-450); RBC 4.03 m/uL (3.80-5.40); WBC 8.6 k/uL (3.8-10.6)
[2022-06-29 12:17] LABS: ALT 14 U/L (4-34); AST 29 U/L (14-36); African American GFR (CKD) >90 (>60 ml/min/1.73 sqM); Alkaline Phosphatase 31 U/L (38-126); Anion Gap 11 mmol/L; Blood Urea Nitrogen 21 mg/dL (7-17); Calcium 9.2 mg/dL (8.4-10.2); Carbon Dioxide 24 mmol/L (22-30); Chloride 103 mmol/L (98-107); Glucose 130 mg/dL (74-99); Magnesium 1.9 mg/dL (1.6-2.3); Non-African American GFR(CKD) 90 (>60 ml/min/1.73 sqM); Potassium 3.6 mmol/L (3.5-5.1); Sodium 138 mmol/L (137-145); Total Bilirubin 0.4 mg/dL (0.2-1.3); Total Protein 7.2 g/dL (6.3-8.2)
--- NOTE | 2022-06-29 12:19 | XR ---
EXAMINATION TYPE: XR chest 2V DATE OF EXAM: 06/29/2022 COMPARISON: 05/01/22 HISTORY: Shortness of breath TECHNIQUE: Frontal and lateral views of the chest are obtained. FINDINGS: Scattered senescent parenchymal changes noted. Hyperinflation compatible with COPD. No evidence for infiltrate. No evidence for atelectasis. Heart size is stable. Mediastinal structures are stable and grossly unremarkable. No evidence for hilar prominence. Degenerative changes dorsal spine. IMPRESSION: 1. No evidence for acute pulmonary disease.
[2022-06-29] MEDS ORDERED: NITROGLYCERIN SL TABS 0.4 MG TAB SUBLINGUAL STA (12:26)
[2022-06-29 12:34] LABS: INR 0.9 (<1.2); Prothrombin Time 10.3 sec (9.0-12.0)
[2022-06-29 12:38] LABS: Partial Thromboplastin Time 17.8 sec (22.0-30.0)
[2022-06-29] MEDS ORDERED: MORPHINE SULFATE 4 MG/ML SYRINGE IVP STA (12:43)
[2022-06-29] MEDS ORDERED: MAG HYDROX/AL HYDROX/SIMETH 30 ML, HYOSCYAMINE ELIXIR 10 ML, LIDOCAINE VISCOUS 2% 10 ML PO STA ×3 (13:25)
--- NOTE | 2022-06-29 13:41 | ED ---
Chest Pain HPI - General Chief Complaint: Chest Pain Stated Complaint: Chest pain Time Seen by Provider: 06/29/22 11:18 Source: patient, EMS, RN notes reviewed Mode of arrival: EMS Limitations: no limitations - History of Present Illness Initial Comments: 67-year-old female presents emergency Department chief complaint of chest pain. Patient was given aspirin and nitro EMS. Patient states it started a few hours prior arrival. Patient states that it's centralized lower to mid chest pain. Patient states that he rates her back. Patient unclear what medications she is on. Patient has have a history of diabetes, hyperlipidemia A. fib she is currently on our course. Patient denies any vomiting slight nausea. Patient denies fevers chills no productive cough cold-like symptoms. - Related Data Home Medications Medication Instructions Recorded Confirmed Citalopram Hydrobromide [CeleXA] 10 mg PO DAILY 12/03/21 06/29/22 Metoprolol Tartrate [Lopressor] 12.5 mg PO BID 12/03/21 06/29/22 Multivit-Min/Iron/Folic/Lutein 2 tab PO DAILY 02/23/22 06/29/22 [Centrum Silver Women Tablet] Atorvastatin [Lipitor] 20 mg PO HS 05/01/22 06/29/22 Calcium Carbonate/Vitamin D3 1 tab PO BID 05/01/22 06/29/22 [Calcium 500 mg-Vit D3 5 mcg (200 Unit)] Alendronate Sodium [Fosamax] 70 mg PO WEEKLY 06/29/22 06/29/22 Previous Rx's Medication Instructions Recorded Apixaban [Eliquis] 5 mg PO BID #60 tab 05/19/21 Aspirin 81 mg PO DAILY 30 Days #30 tab 10/01/21 INSULIN ASPART (NovoLOG) [NovoLOG 3 unit SQ AC-TID #1 each 05/05/22 (formulary)] Insulin Glargine [Lantus Vial] 9 unit SQ HS #10 ml 05/05/22 Allergies Allergy/AdvReac Type Severity Reaction Status Date / Time Penicillins Allergy Family Verified 06/29/22 13:28 History Review of Systems ROS Statement: Those systems with pertinent positive or pertinent negative responses have been documented in the HPI. ROS Other: All systems not noted in ROS Statement are negative. 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 Needs to use a child's one. mother has diff coming out Past Psychological History: Depression Smoking Status: Never smoker Past Alcohol Use History: None Reported Past Drug Use History: None Reported - Past Family History Mother Family Medical History: Thyroid Disorder Additional Family Medical History / Comment(s): thyroid removed Father Family Medical History: Myocardial Infarction ([place]) General Exam Limitations: no limitations General appearance: alert, in no apparent distress Head exam: Present: atraumatic, normocephalic, normal inspection Eye exam: Present: normal appearance, PERRL, EOMI. Absent: scleral icterus, conjunctival injection, periorbital swelling ENT exam: Present: normal exam, normal oropharynx, mucous membranes moist Neck exam: Present: normal inspection, full ROM. Absent: tenderness, meningismus, lymphadenopathy Respiratory exam: Present: normal lung sounds bilaterally. Absent: respiratory distress, wheezes, rales, rhonchi, stridor Cardiovascular Exam: Present: regular rate, normal rhythm, normal heart sounds. Absent: systolic murmur, diastolic murmur, rubs, gallop, clicks GI/Abdominal exam: Present: soft, tenderness, normal bowel sounds. Absent: distended, guarding, rebound, rigid Course Vital Signs 06/29/22 06/29/22 06/29/22 11:16 11:29 12:20 Pulse Rate 70 72 Pulse Rate [ 69 Preflight Inspector ] Respiratory 18 18 Rate Blood Pressure 115/65 129/88 O2 Sat by Pulse 97 96 Oximetry 06/29/22 13:10 Pulse Rate 81 Pulse Rate [ Preflight Inspector ] Respiratory 18 Rate Blood Pressure 123/78 O2 Sat by Pulse 98 Oximetry Chest Pain MDM - MDM Patiently admitted for cardiac rule out. Patient is currently on anticoagulants will continue on anticoagulants. Patient was updated to [facility] emergency department physician group Disposition Clinical Impression: Chest pain Disposition: ADMITTED IP TO THIS HOSP Condition: Fair Referrals: [facility],Clinic [Primary Care Provider] - 1-2 days Time of Disposition: 13:40
[2022-06-29] MEDS ORDERED: NITROGLYCERIN SL TABS 0.4 MG TAB SUBLINGUAL PRN (13:42)
--- NOTE | 2022-06-29 14:46 | CT ---
EXAMINATION TYPE: CT abdomen pelvis w con DATE OF EXAM: 06/29/2022 COMPARISON: 09/29/2017 HISTORY: 67-year-old female epigastric pain TECHNIQUE: Contiguous axial scanning of the abdomen and pelvis following administration of 100 ml Iso vicente 300 IV contrast. Delayed images through the kidneys and coronal/sagittal reconstructions perform ed. CT DLP: 759.3 mGycm Automated exposure control for dose reduction was used. FINDINGS: Heart normal size without pericardial effusion. Prominent dependent opacity posterior lung bases lik nidia dependent atelectasis. Postsurgical change of Inna fundoplication. There is mild circumferential wall thickening distal es ophagus. Correlate with symptoms to exclude underlying esophagitis. Mild circumferential wall thickening at the lung the antrum of the stomach on axial image 26. No focal liver lesion. The gallbladder is surgically absent. Portal venous system is patent. Bile hermilo t measures 6 mm, acceptable given patient's age and postcholecystectomy status. 1 cm nodule left adrenal gland is unchanged. 2.4 cm cyst redemonstrated left kidney. Smaller cysts measuring up to 6 mm right kidney. The spleen s hows no gross abnormality. Mild pancreatic atrophy. There is a 1.1 cm cystic-appearing lesion within the uncinate process of the pancreas. This can be reassessed at a 6 month follow-up MRI. No dilated small bowel, free fluid, or free air. No mesenteric or retroperitoneal lymphadenopathy. Mild stool burden. No pericolonic inflammatory change. Normal appendix. Bladder is urine distended. Uterus anteverted. Both ovaries are visualized. No abnormal fluid collect ion in the pelvis or pelvic lymphadenopathy. Bones: Facet arthropathy lower lumbar spine with degenerative grade 1 anterolisthesis L4-L5. Mild deg enerative change in both hips. IMPRESSION: 1. THERE APPEARS TO BE PREVIOUS INNA FUNDOPLICATION. THERE IS MILD CIRCUMFERENTIAL WALL THICKENING OF THE DISTAL ESOPHAGUS. CORRELATE WITH PATIENT'S SYMPTOMS FOR POSSIBLE ESOPHAGITIS. 2. THERE ALSO APPEARS TO BE SOME CIRCUMFERENTIAL WALL THICKENING AT THE INTERNAL, THAT COULD REPRESEN T GASTRITIS. DIRECT VISUALIZATION CLINICALLY INDICATED. 3. A 1.1 CM CYSTIC-APPEARING LESION WITHIN THE UNCINATE PROCESS OF THE PANCREAS RECOMMEND SIX-MONTH F OLLOW-UP PANCREAS MRI TO REASSESS.
[2022-06-29] MEDS ORDERED: PANTOPRAZOLE 40 MG/10 ML VIAL IVP STA (14:52)
--- NOTE | 2022-06-29 17:43 | CA ---
Transthoracic Echo Report Name: Madison Mauricio Age: 67 Gender: F : 1955 Exam Date: 06/29/2022 14:05 Exam Location: [facility] Ht (in): 63 Wt (lb): 140 Ordering Physician: Sebastien Cortes Attending/Referring Phys: [id number], Sebastian Director Of Critical Care Carolina Yang RDCS Procedure CPT: Indications: Chest Pain Cardiac Hx: Technical Quality: Good Contrast 1: Total Dose (mL): Contrast 2: Total Dose (mL): MEASUREMENTS (Male / Female) Normal Values 2D ECHO LV Diastolic Diameter PLAX 3.6 cm 4.2 - 5.9 / 3.9 - 5.3 cm LV Systolic Diameter PLAX 2.5 cm IVS Diastolic Thickness 1.0 cm 0.6 - 1.0 / 0.6 - 0.9 cm LVPW Diastolic Thickness 1.0 cm 0.6 - 1.0 / 0.6 - 0.9 cm LV Relative Wall Thickness 0.5 RV Internal Dim ED PLAX 3.0 cm LA Systolic Diameter LX 3.2 cm 3.0 - 4.0 / 2.7 - 3.8 cm LA Volume 36.7 cm??? 18 - 58 / 22 - 52 cm??? M-MODE Aortic Root Diameter MM 2.9 cm MV E Point Septal Separation 0.9 cm AV Cusp Separation MM 2.1 cm DOPPLER AV Peak Velocity 131.5 cm/s AV Peak Gradient 6.9 mmHg MV Area PHT 4.3 cm??? Mitral E Point Velocity 98.7 cm/s Mitral A Point Velocity 111.1 cm/s Mitral E to A Ratio 0.9 MV Deceleration Time 175.5 ms MV E' Velocity 7.2 cm/s Mitral E to MV E' Ratio 13.7 TR Peak Velocity 232.1 cm/s TR Peak Gradient 21.5 mmHg Right Ventricular Systolic Press 25.9 mmHg FINDINGS Left Ventricle Left ventricular ejection fraction is estimated at 60-65 %. Left ventricular cavity size normal. Left ventricular wall thickness normal. Right Ventricle Normal right ventricular size and function. Right ventricular systolic pressure within normal limits. Right Atrium Normal right atrial size. Left Atrium Normal left atrial size. No evidence for an atrial septal defect. Anurysmal septum Mitral Valve Structurally normal mitral valve. No mitral stenosis, regurgitation or prolapse. Aortic Valve Trileaflet aortic valve. No aortic valve stenosis or regurgitation. Tricuspid Valve Mild tricuspid regurgitation. Pulmonic Valve Structurally normal pulmonic valve. Pericardium Normal pericardium. No pericardial effusion. Aorta Normal size aortic root and proximal ascending aorta. CONCLUSIONS Normal LV systolic function mild tricuspid regurgitation Previewed by: Dr. Orlin Fernandez MD (Electronically Signed) Final Date: 29 June 2022 17:42
--- NOTE | 2022-06-29 17:49 | P.CRDCN ---
History of Present Illness Consult reason: chest pain History of present illness: Patient presented to Hospital complaining of chest pain. Her chest discomfort is mild intensity sharp pericardial unrelated to exertion and not associated with diaphoresis. She has a history of paroxysmal atrial fibrillation. An EKG done on this admission reveals sinus rhythm without significant ST-T wave changes. 3 sets of cardiac enzymes have been negative. An echocardiogram performed shows normal LV systolic function. The plan at this stage is to schedule her for a dobutamine stress echo tomorrow if this is negative discharge her home. Constitutional: Denies chills. Denies fever. Eyes: Denies blurred vision. Denies pain. Ears, nose, mouth and throat: Denies headache. Denies sore throat. Cardiovascular: Significant for chest pain. Denies shortness of breath. Respiratory: Denies cough. Gastrointestinal: Denies abdominal pain. Denies diarrhea. Denies nausea. Denies vomiting. Musculoskeletal: Denies myalgias. Integumentary: Denies pruritus. Denies rash. Neurological: Denies numbness. Denies weakness. Psychiatric: Denies anxiety. Denies depression. Endocrine: Denies fatigue. Denies weight change. Genitourinary: Denies burning, hematuria, frequency of urination. Hematological: No anemia or excess bleeding. General: The patient is awake and alert, in no distress, and does not appear acutely ill. Skin: Skin is warm and dry and no rashes or lesions are noted. Eye: Pupils are equal, round and reactive to light, extra-ocular movements are intact; there is normal conjunctiva bilaterally. Ears, nose, mouth and throat: There are moist mucous membranes and no oral lesions. Neck: The neck is supple, there is no tenderness or JVD. Cardiovascular: There is a regular rate and rhythm. No murmur, rub or gallop is appreciated. Respiratory: Lungs are clear to auscultation, respirations are non-labored, breath sounds are equal. Gastrointestinal: Soft, non-distended, non-tender abdomen without masses or organomegaly noted. There is no rebound or guarding present. Bowel sounds are unremarkable. Back: There is no tenderness to palpation in the midline. There is no obvious deformity. Musculoskeletal: Normal ROM, no tenderness, There is no pedal edema. There is no calf tenderness or swelling. Extremities: No edema. Vascular: Femoral pulse is normal. Posterior tibial pulses are normal .Dorsalis pedis is palpable. Neurological: CN II-XII intact. There are no obvious motor or sensory deficits. Speech is normal. Psychiatric: Cooperative, appropriate mood & affect, normal judgment. 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 Needs to use a child's one. mother has diff coming out Past Psychological History: Depression Smoking Status: Never smoker Past Alcohol Use History: None Reported Past Drug Use History: None Reported - Past Family History Mother Family Medical History: Thyroid Disorder Additional Family Medical History / Comment(s): thyroid removed Father Family Medical History: Myocardial Infarction ([place]) Medications and Allergies Home Medications Medication Instructions Recorded Confirmed Type Apixaban [Eliquis] 5 mg PO BID #60 tab 05/19/21 06/29/22 Rx Aspirin 81 mg PO DAILY 30 Days #30 tab 10/01/21 06/29/22 Rx Citalopram Hydrobromide [CeleXA] 10 mg PO DAILY 12/03/21 06/29/22 History Metoprolol Tartrate [Lopressor] 12.5 mg PO BID 12/03/21 06/29/22 History Multivit-Min/Iron/Folic/Lutein 2 tab PO DAILY 02/23/22 06/29/22 History [Centrum Silver Women Tablet] Atorvastatin [Lipitor] 20 mg PO HS 05/01/22 06/29/22 History Calcium Carbonate/Vitamin D3 1 tab PO BID 05/01/22 06/29/22 History [Calcium 500 mg-Vit D3 5 mcg (200 Unit)] INSULIN ASPART (NovoLOG) [NovoLOG 3 unit SQ AC-TID #1 each 05/05/22 06/29/22 Rx (formulary)] Insulin Glargine [Lantus Vial] 9 unit SQ HS #10 ml 05/05/22 06/29/22 Rx Alendronate Sodium [Fosamax] 70 mg PO WEEKLY 06/29/22 06/29/22 History Allergies Allergy/AdvReac Type Severity Reaction Status Date / Time Penicillins Allergy Family Verified 06/29/22 13:28 History Physical Exam Vitals: Vital Signs Pulse Pulse Resp BP Pulse Ox 06/29/22 14:06 80 18 129/70 06/29/22 13:10 81 18 123/78 98 06/29/22 12:20 72 18 129/88 96 06/29/22 11:29 69 06/29/22 11:16 70 18 115/65 97 Intake and Output 06/29/22 06/29/22 06/29/22 06:59 14:59 22:59 Other: Weight 63.9 kg Results 06/29/22 11:40 06/29/22 11:40 Cardiac Enzymes 06/29/22 06/29/22 06/29/22 Range/Units 11:40 11:40 13:51 AST 29 (14-36) U/L Troponin I <0.012 <0.012 (0.000-0.034) ng/mL 06/29/22 Range/Units 16:27 AST (14-36) U/L Troponin I <0.012 (0.000-0.034) ng/mL Coagulation 06/29/22 Range/Units 11:40 PT 10.3 (9.0-12.0) sec APTT 17.8 L (22.0-30.0) sec CBC 06/29/22 Range/Units 11:40 WBC 8.6 (3.8-10.6) k/uL RBC 4.03 (3.80-5.40) m/uL Hgb 12.4 (11.4-16.0) gm/dL Hct 37.8 (34.0-46.0) % Plt Count 252 (150-450) k/uL Comprehensive Metabolic Panel 06/29/22 Range/Units 11:40 Sodium 138 (137-145) mmol/L Potassium 3.6 (3.5-5.1) mmol/L Chloride 103 (98-107) mmol/L Carbon Dioxide 24 (22-30) mmol/L BUN 21 H (7-17) mg/dL Creatinine 0.68 (0.52-1.04) mg/dL Glucose 130 H (74-99) mg/dL Calcium 9.2 (8.4-10.2) mg/dL AST 29 (14-36) U/L ALT 14 (4-34) U/L Alkaline Phosphatase 31 L (38-126) U/L Total Protein 7.2 (6.3-8.2) g/dL Albumin 4.0 (3.5-5.0) g/dL Current Medications Generic Name Dose Route Start Last Admin Trade Name Freq PRN Reason Stop Dose Admin Apixaban 5 mg 06/29/22 21:00 Apixaban 5 Mg Tab PO BID [facility] Protocol Aspirin 325 mg 06/30/22 09:00 Aspirin 325 Mg Tab PO DAILY [facility] Atorvastatin Calcium 20 mg 06/29/22 21:00 Atorvastatin 20 Mg Tab PO HS [facility] Calcium Carbonate 1 each 06/29/22 21:00 Calcium Carb-Vit D 500 Mg-5 Mcg Tab PO BID [facility] Citalopram Hydrobromide 10 mg 06/30/22 09:00 Citalopram Hydrobromide 10 Mg Tab PO DAILY [facility] Insulin Aspart 3 unit 06/29/22 17:30 Insulin Aspart (Novolog) 100 Unit/Ml Vial SQ AC-TID [facility] Insulin Detemir 9 unit 06/29/22 21:00 Insulin Detemir (Levemir) 100 Unit/Ml Syr SQ HS [facility] Metoprolol Tartrate 12.5 mg 06/29/22 21:00 Metoprolol Tartrate 12.5 Mg Tab PO BID [facility] Multivitamins 1 each 06/30/22 09:00 Multivitamins, Thera 1 Each Tab PO DAILY [facility] Nitroglycerin 0.4 mg 06/29/22 13:42 Nitroglycerin Sl Tabs 0.4 Mg Tab SUBLINGUAL Q5M PRN Chest Pain Non-Formulary Medication 70 mg 07/06/22 09:00 Alendronate Sodium [Fosamax] PO WEEKLY [facility] Pantoprazole Sodium 40 mg 06/29/22 21:00 Pantoprazole 40 Mg/10 Ml Vial IVP BID [facility] Intake and Output 08/08/1206/29/22 06/29/22 06:59 14:59 22:59 Other: Weight 63.9 kg Patient Weight 06/30/22 06:59 Weight 63.9 kg 06/29/22 11:40 06/29/22 11:40
[2022-06-29 18:13] LABS: Glucose,Whole Blood 217 mg/dL (70-110)
[2022-06-29] MEDS: INSULIN ASPART (NovoLOG) 100 UNIT/ML VIAL SQ SCH (19:16)
[2022-06-29 19:20] LABS: Glucose,Whole Blood 244 mg/dL (70-110)
--- NOTE | 2022-06-29 19:33 | P.HPIM ---
History of Present Illness H&P Date: 06/29/22 History of Presenting Illness: Patient is a very pleasant 67-year-old female with a past medical history of atrial fibrillation on anticoagulation with Eliquis, hypertension, hype rlipidemia, and insulin-dependent diabetes mellitus. She presented to the emergency department with a chief complaint of chest pain. Patient reports she woke up this morning with pain to substernal chest epigastric region. Patient reports pain begins epigastric region radiates into midsternal chest and then into her back. Patient reports associated nausea but denies any episodes of vomiting, dizziness, lightheadedness, or diaphoresis. Patient also denies having any palpitations, shortness of breath, or exertional dyspnea. Patient denies having any numbness/tingling/weakness/swelling in her extremities. Patient reports taking daily medications including anticoagulant as prescribed without missing any doses. She underwent full evaluation in the emergency department. EKG was completed showing normal sinus rhythm at 68 bpm with no signs of acute ischemia. Chest x-ray negative for acute cardiopulmonary process. CBC, coags, and CMP showing no significant abnormalities. Troponin n egative at less than 0.012 and pro-BMP 298. Patient admitted under our services with consultation to cardiology. Review of systems: Pertinent positives and negatives as discussed in HPI, a complete review of systems was performed and all other systems are negative. Physical exam: Vital signs reviewed and stable. General: Nontoxic, no distress and appears stated age. Derm: Skin warm and dry, normal coloration for ethnicity. Head: Atraumatic, normocephalic and symmetric. Eyes: EOMs intact, no lid lag, and anicteric sclera Mouth: no lip lesions, mucus membranes moist Cardiovascular: regular rate and rhythm with normal S1S2, systolic murmur, positive posterior tibial pulses bilaterally, and cap refill < 2 seconds. Lungs: Respirations even, regular, and unlabored on room air. Lungs CTA bilaterally, no rhonchi, no rales, no wheezing, and no accessory muscle usage. Abdominal: soft, moderate tenderness to palpation in epigastric region, no guarding, no appreciable organomegaly Ext: ROM intact. No gross muscle atrophy, no edema, no contractures Neuro: Speech clear, face symmetrical and CN II-XII grossly intact with no noted focal neuro deficits Psych: Alert and oriented to person, place, time, and situation. Appropriate and pleasant affect. Assessment and Plan of Care: Chest pain, rule out acute coronary event -Cardiology consult, appreciate further recommendations -Telemetry monitoring -Trend troponins -Cardiac diet, NPO at midnight -Aspirin, atorvastatin, and metoprolol -Lipid profile with a.m. labs. -Echocardiogram Epigastric pain rule out esophagitis versus gastritis -CT abdomen and pelvis revealing previous Oc fundoplication with mild circumferential wall thickening of distal esophagus correlate for possible esophagitis, circumferential wall thickening possibly representing gastritis direct visualization as clinically indicated. -Gen. surgery consulted -GI prophylaxis with Protonix 40 mg IVP twice daily -Clear liquid diet Cystic-appearing lesion within the Unicinate process of the pancreas -Patient will need a six-month follow-up pancreas MRI to reassess Paroxysmal Atrial fibrillation -Continue anticoagulation with Eliquis Hypertension -Monitor vital signs and continue daily medication regimen with metoprolol. Hyperlipidemia -Continue daily medication regimen with atorvastatin 20 mg nightly. Insulin-dependent diabetes mellitus -Glycemic protocol with NovoLog sliding scale and continuation of Levemir 9 units nightly. The patient is admitted with an anticipated less than 2 midnight stay for evaluation of chest pain CODE STATUS: Full code DVT prophylaxis: Eliquis Discussed with: Patient and RN Anticipated discharge date: 1-[address]: Home A total of 47 minutes was spent on the care of this complex patient more than 50% of the time was spent in counseling and care coordination. 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 Needs to use a child's one. mother has diff coming out Past Psychological History: Depression Smoking Status: Never smoker Past Alcohol Use History: None Reported Past Drug Use History: None Reported - Past Family History Mother Family Medical History: Thyroid Disorder Additional Family Medical History / Comment(s): thyroid removed Father Family Medical History: Myocardial Infarction ([place]) Medications and Allergies Home Medications Medication Instructions Recorded Confirmed Type Apixaban [Eliquis] 5 mg PO BID #60 tab 05/19/21 06/29/22 Rx Aspirin 81 mg PO DAILY 30 Days #30 tab 10/01/21 06/29/22 Rx Citalopram Hydrobromide [CeleXA] 10 mg PO DAILY 12/03/21 06/29/22 History Metoprolol Tartrate [Lopressor] 12.5 mg PO BID 12/03/21 06/29/22 History Multivit-Min/Iron/Folic/Lutein 2 tab PO DAILY 02/23/22 06/29/22 History [Centrum Silver Women Tablet] Atorvastatin [Lipitor] 20 mg PO HS 05/01/22 06/29/22 History Calcium Carbonate/Vitamin D3 1 tab PO BID 05/01/22 06/29/22 History [Calcium 500 mg-Vit D3 5 mcg (200 Unit)] INSULIN ASPART (NovoLOG) [NovoLOG 3 unit SQ AC-TID #1 each 05/05/22 06/29/22 Rx (formulary)] Insulin Glargine [Lantus Vial] 9 unit SQ HS #10 ml 05/05/22 06/29/22 Rx Alendronate Sodium [Fosamax] 70 mg PO WEEKLY 06/29/22 06/29/22 History Allergies Allergy/AdvReac Type Severity Reaction Status Date / Time Penicillins Allergy Family Verified 06/29/22 13:28 History Physical Exam Vitals: Vital Signs Pulse Pulse Resp BP Pulse Ox 06/29/22 14:06 80 18 129/70 06/29/22 13:10 81 18 123/78 98 06/29/22 12:20 72 18 129/88 96 06/29/22 11:29 69 06/29/22 11:16 70 18 115/65 97 Intake and Output 06/28/22 06/29/22 06/29/22 22:59 06:59 14:59 Other: Weight 63.9 kg Results CBC & Chem 7: 06/29/22 11:40 06/29/22 11:40 Labs: Abnormal Lab Results - Last 24 Hours (Table) 06/29/22 06/29/22 06/29/22 Range/Units 11:40 11:40 11:40 Lymphocytes # 0.5 L (1.0-4.8) k/uL APTT 17.8 L (22.0-30.0) sec BUN 21 H (7-17) mg/dL Glucose 130 H (74-99) mg/dL Alkaline Phosphatase 31 L (38-126) U/L
[2022-06-29] MEDS: APIXABAN 5 MG TAB PO SCH (20:04)
[2022-06-29] MEDS: CALCIUM CARB-VIT D 500 MG-5 MCG TAB PO SCH (20:04)
[2022-06-29] MEDS: PANTOPRAZOLE 40 MG/10 ML VIAL IVP SCH (20:04)
[2022-06-29] MEDS: ATORVASTATIN 20 MG TAB PO SCH (20:04)
[2022-06-29] MEDS: METOPROLOL TARTRATE 12.5 MG TAB PO SCH (20:04)
[2022-06-29] MEDS ORDERED: ONDANSETRON 4 MG/2 ML VIAL IVP PRN (20:57)
[2022-06-29 21:09] LABS: Glucose,Whole Blood 150 mg/dL (70-110)
[2022-06-29] MEDS: INSULIN DETEMIR (LEVEMIR) 100 UNIT/ML SYR SQ SCH (21:48)
[2022-06-30] MEDS ORDERED: DOBUTamine DRIP for NUC MED 500 MG in DEXTROSE/WATER 1 250ML.BAG IV PRN (07:00)
[2022-06-30 07:52] LABS: Glucose,Whole Blood 190 mg/dL (70-110)
[2022-06-30] MEDS: INSULIN ASPART (NovoLOG) 100 UNIT/ML VIAL SQ SCH ×3 (08:04→18:14)
[2022-06-30] MEDS: ASPIRIN 325 MG TAB PO SCH (08:04)
[2022-06-30] MEDS: CITALOPRAM HYDROBROMIDE 10 MG TAB PO SCH (08:04)
[2022-06-30] MEDS: METOPROLOL TARTRATE 12.5 MG TAB PO SCH ×3 (08:04→20:23)
[2022-06-30] MEDS: APIXABAN 5 MG TAB PO SCH (08:04)
[2022-06-30] MEDS: CALCIUM CARB-VIT D 500 MG-5 MCG TAB PO SCH ×2 (08:04→20:23)
[2022-06-30] MEDS: MULTIVITAMINS, THERA 1 EACH TAB PO SCH (08:04)
[2022-06-30] MEDS: PANTOPRAZOLE 40 MG/10 ML VIAL IVP SCH ×2 (08:05→20:23)
[2022-06-30 09:33] LABS: Chol/HDL Ratio 1.85 Ratio; LDL Cholesterol,Calculated 65.6 mg/dL (0.0-131.0); VLDL Calculation 13.78 mg/dL (5.00-40.00)
--- NOTE | 2022-06-30 11:30 | P.PN ---
Subjective Progress Note Date: 06/30/22 Patient presented to Hospital complaining of chest pain. Her chest discomfort is mild intensity sharp pericardial unrelated to exertion and not associated with diaphoresis. She has a history of paroxysmal atrial fibrillation. An EKG done on this admission reveals sinus rhythm without significant ST-T wave changes. cardiac enzymes have been negative x3. An echocardiogram performed shows normal LV systolic function. Patient is seen today resting comfortably in bed in no signs of acute distress. She denies chest pain or increased shortness of breath. She remains sinus rhythm on telemetry. Labs reviewed cholesterol 173 LDL 65 triglycerides 68 HDL 93. Patient is awaiting to have dobutamine stress echo. She continues on Eliquis for anticoagulation. If stress test and negative patient is cleared from a cardiac standpoint. Patient has been seen by surgery, patient may undergo EGD for possible esophagitis/gastritis due to right upper quadrant pain and epigastric pain. Objective - Vital Signs Vital signs: Vital Signs Temp 98.1 F 06/30/22 07:00 Pulse 77 06/30/22 07:00 Resp 18 06/30/22 07:00 BP 136/68 06/30/22 07:00 Pulse Ox 96 06/30/22 07:00 FiO2 Intake & Output 06/29/22 06/30/22 06/30/22 18:59 06:59 18:59 Weight 63.9 kg 63.9 kg Other: # Voids 1 - Exam PHYSICAL EXAM: VITAL SIGNS: Reviewed. GENERAL: Well-developed in no acute distress. HEENT: Head is normocephalic. Pupils are equal, round. Sclerae anicteric. Mucous membranes of the mouth are moist. NECK: Supple. No JVD or thyromegaly RESPIRATORY: Respirations even and unlabored. Lungs diminished to auscultation bilaterally. CARDIO: Regular rate and rhythm. S1 and S2 heard. No murmur or gallops. EXTREMITIES: Normal range of motion. No clubbing or cyanosis. Peripheral pulses intact. Negative for bilateral lower extremity edema NEURO: Orientated to person, time, mood is appropriate - Labs CBC & Chem 7: 06/29/22 11:40 06/29/22 11:40 Labs: Abnormal Lab Results - Last 24 Hours (Table) 06/29/22 06/29/22 06/29/22 Range/Units 11:40 11:40 11:40 Lymphocytes # 0.5 L (1.0-4.8) k/uL APTT 17.8 L (22.0-30.0) sec BUN 21 H (7-17) mg/dL Glucose 130 H (74-99) mg/dL POC Glucose (mg/dL) (70-110) mg/dL Alkaline Phosphatase 31 L (38-126) U/L HDL Cholesterol (40.00-60.00) mg/dL 06/29/22 06/29/22 06/29/22 Range/Units 18:11 19:16 21:08 Lymphocytes # (1.0-4.8) k/uL APTT (22.0-30.0) sec BUN (7-17) mg/dL Glucose (74-99) mg/dL POC Glucose (mg/dL) 217 H 244 H 150 H (70-110) mg/dL Alkaline Phosphatase (38-126) U/L HDL Cholesterol (40.00-60.00) mg/dL 06/30/22 06/30/22 Range/Units 04:53 07:40 Lymphocytes # (1.0-4.8) k/uL APTT (22.0-30.0) sec BUN (7-17) mg/dL Glucose (74-99) mg/dL POC Glucose (mg/dL) 190 H (70-110) mg/dL Alkaline Phosphatase (38-126) U/L HDL Cholesterol 93.60 H (40.00-60.00) mg/dL Assessment and Plan Assessment: Precordial chest pain History of atrial fibrillation Plan: Patient awaiting dobutamine stress echo Continue with current cardiac medications Awaiting recommendations by surgical for possible EGD Further recommendations based on clinical course The above impression and plan of care have been discussed and directed by the signing physician. Chayito Mead, nurse practitioner, acting as scribe for signing physician.
[2022-06-30] MEDS ORDERED: DOBUTamine DRIP for NUC MED 500 MG/250 ML BAG IV ONE (12:00)
[2022-06-30 13:37] LABS: Glucose,Whole Blood 199 mg/dL (70-110)
--- NOTE | 2022-06-30 14:16 | P.GSCN ---
History of Present Illness Consult date: 06/30/22 History of present illness: CHIEF COMPLAINT: Chest pain HISTORY OF PRESENT ILLNESS: This is a 67-year-old female who initially presented with chest pain. She also has been having epigastric pain for about 2 days. She does complain of heartburn. She had a computed tomography scan abdomen and pelvis that had shown some wall thickening in the distal esophagus showing possible esophagitis and gastritis. Patient seen evaluated by cardiology in regards to chest pain and they've ordered a dobutamine stress echo. Troponins are negative 3. Patient does have a prior history of Inna fundoplication and cholecystectomy. Her last EGD was in August 2015 showed gastritis. She is on Eliquis for Afib. Patient denies any fever, chills or sweats. Denies any nausea or vomiting. Patient seen and examined with Dr. negron PAST MEDICAL HISTORY: Atrial Fibrillation, CVA, Diabetes Mellitus, GERD/Reflux, Seizure Disorder, Sleep Apnea/CPAP/BIPAP, Thyroid Disorder PAST SURGICAL HISTORY: Recent complication, cholecystectomy MEDICATIONS: See list. ALLERGIES: See list. SOCIAL HISTORY: No illicit drug use. REVIEW OF SYSTEMS: CONSTITUTIONAL: Denies fever or chills. HEENT: Denies blurred vision, vision changes, or eye pain. Denies hemoptysis CARDIOVASCULAR: Denies chest pain or pressure. RESPIRATORY: No shortness of breath. GASTROINTESTINAL: See HPI for pertinent findings HEMATOLOGIC: Denies bleeding disorders. GENITOURINARY: Denies any blood in urine or increased urinary frequency. SKIN: Denies pruitis. Denies rash. PHYSICAL EXAM: VITAL SIGNS: Reviewed GENERAL: Well-developed in no acute distress. HEENT: No sclera icterus. Extraocular movements grossly intact. Moist buccal mucosa. Head is atraumatic, normocephalic. No nasal drainage. ABDOMEN: Soft. Nondistended. Tenderness to palpation epigastric area NEUROLOGIC: Alert and oriented. Slightly confused. Cranial nerves II through XII grossly intact. LABORATORY DATA: WBC 8.6 HgB 12.4 platelets 252 INR 0.9 Sodium 13 potassium 3.6 creatinine 0.68 Glucose 130 LFTs normal IMAGING: Computed tomography scan abdomen and pelvis previous Inna complication. Mild circumferential wall thickening of the distal esophagus. Correlate for possible esophagitis. There also appears some circumferential wall thickening at the antrum of the stomach. Correlate for gastritis. 1.1 cm cystic-appearing lesion within the uncinate process of the pancreas. Recommend 6 month follow-up pa ncreas to reassess. ASSESSMENT: 1. Epigastric pain 2. Thickening of the distal esophagus with concerns of esophagitis and also thickening of the antrum of the stomach which could represent gastritis noted on CAT scan PLAN: -Patient scheduled for EGD tomorrow with Dr. negron -Nothing by mouth after midnight -Patient scheduled for a dobutamine stress echo today with cardiology service -Continue IV Protonix -Discontinue Eliquis Thank you for this consultation Physician Material Handler 2Nd Shift note has been reviewed by physician. Signing provider agrees with the documented findings, assessment, and plan of care. 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 Needs to use a child's one. mother has diff coming out Past Psychological History: Depression Additional Psychological History / Comment(s): Single but lives with adult children and grandchildren. Was in the stationed in the [employer] mostly in [facility]. Not noted to have a significant alcohol or recreational drug use Smoking Status: Never smoker Past Alcohol Use History: None Reported Past Drug Use History: None Reported - Past Family History Mother Family Medical History: Thyroid Disorder Additional Family Medical History / Comment(s): thyroid removed Father Family Medical History: Myocardial Infarction ([place]) Medications and Allergies Home Medications Medication Instructions Recorded Confirmed Type Apixaban [Eliquis] 5 mg PO BID #60 tab 05/19/21 06/29/22 Rx Aspirin 81 mg PO DAILY 30 Days #30 tab 10/01/21 06/29/22 Rx Citalopram Hydrobromide [CeleXA] 10 mg PO DAILY 12/03/21 06/29/22 History Metoprolol Tartrate [Lopressor] 12.5 mg PO BID 12/03/21 06/29/22 History Multivit-Min/Iron/Folic/Lutein 2 tab PO DAILY 02/23/22 06/29/22 History [Centrum Silver Women Tablet] Atorvastatin [Lipitor] 20 mg PO HS 05/01/22 06/29/22 History Calcium Carbonate/Vitamin D3 1 tab PO BID 05/01/22 06/29/22 History [Calcium 500 mg-Vit D3 5 mcg (200 Unit)] INSULIN ASPART (NovoLOG) [NovoLOG 3 unit SQ AC-TID #1 each 05/05/22 06/29/22 Rx (formulary)] Insulin Glargine [Lantus Vial] 9 unit SQ HS #10 ml 05/05/22 06/29/22 Rx Alendronate Sodium [Fosamax] 70 mg PO WEEKLY 06/29/22 06/29/22 History Allergies Allergy/AdvReac Type Severity Reaction Status Date / Time Penicillins Allergy Family Verified 06/29/22 13:28 History Surgical - Exam Vital Signs Pulse Resp BP Pulse Ox 70 18 115/65 97 06/29/22 11:16 06/29/22 11:16 06/29/22 11:16 06/29/22 11:16 Results - Labs 06/29/22 11:40 06/29/22 11:40 Abnormal Lab Results - Last 24 Hours (Table) 06/29/22 06/29/22 06/29/22 Range/Units 11:40 11:40 11:40 Lymphocytes # 0.5 L (1.0-4.8) k/uL APTT 17.8 L (22.0-30.0) sec BUN 21 H (7-17) mg/dL Glucose 130 H (74-99) mg/dL POC Glucose (mg/dL) (70-110) mg/dL Alkaline Phosphatase 31 L (38-126) U/L HDL Cholesterol (40.00-60.00) mg/dL 06/29/22 06/29/22 06/29/22 Range/Units 18:11 19:16 21:08 Lymphocytes # (1.0-4.8) k/uL APTT (22.0-30.0) sec BUN (7-17) mg/dL Glucose (74-99) mg/dL POC Glucose (mg/dL) 217 H 244 H 150 H (70-110) mg/dL Alkaline Phosphatase (38-126) U/L HDL Cholesterol (40.00-60.00) mg/dL 06/30/22 06/30/22 Range/Units 04:53 07:40 Lymphocytes # (1.0-4.8) k/uL APTT (22.0-30.0) sec BUN (7-17) mg/dL Glucose (74-99) mg/dL POC Glucose (mg/dL) 190 H (70-110) mg/dL Alkaline Phosphatase (38-126) U/L HDL Cholesterol 93.60 H (40.00-60.00) mg/dL Diabetes panel 06/29/22 06/30/22 Range/Units 11:40 04:53 Sodium 138 (137-145) mmol/L Potassium 3.6 (3.5-5.1) mmol/L Chloride 103 (98-107) mmol/L Carbon Dioxide 24 (22-30) mmol/L BUN 21 H (7-17) mg/dL Creatinine 0.68 (0.52-1.04) mg/dL Glucose 130 H (74-99) mg/dL Calcium 9.2 (8.4-10.2) mg/dL AST 29 (14-36) U/L ALT 14 (4-34) U/L Alkaline Phosphatase 31 L (38-126) U/L Total Protein 7.2 (6.3-8.2) g/dL Albumin 4.0 (3.5-5.0) g/dL Triglycerides 68.90 (0.00-149.00) mg/dL HDL Cholesterol 93.60 H (40.00-60.00) mg/dL Calcium panel 06/29/22 Range/Units 11:40 Calcium 9.2 (8.4-10.2) mg/dL Albumin 4.0 (3.5-5.0) g/dL Pituitary panel 06/29/22 Range/Units 11:40 Sodium 138 (137-145) mmol/L Potassium 3.6 (3.5-5.1) mmol/L Chloride 103 (98-107) mmol/L Carbon Dioxide 24 (22-30) mmol/L BUN 21 H (7-17) mg/dL Creatinine 0.68 (0.52-1.04) mg/dL Glucose 130 H (74-99) mg/dL Calcium 9.2 (8.4-10.2) mg/dL Adrenal panel 06/29/22 Range/Units 11:40 Sodium 138 (137-145) mmol/L Potassium 3.6 (3.5-5.1) mmol/L Chloride 103 (98-107) mmol/L Carbon Dioxide 24 (22-30) mmol/L BUN 21 H (7-17) mg/dL Creatinine 0.68 (0.52-1.04) mg/dL Glucose 130 H (74-99) mg/dL Calcium 9.2 (8.4-10.2) mg/dL Total Bilirubin 0.4 (0.2-1.3) mg/dL AST 29 (14-36) U/L ALT 14 (4-34) U/L Alkaline Phosphatase 31 L (38-126) U/L Total Protein 7.2 (6.3-8.2) g/dL Albumin 4.0 (3.5-5.0) g/dL
[2022-06-30 17:18] LABS: Glucose,Whole Blood 148 mg/dL (70-110)
--- NOTE | 2022-06-30 18:19 | P.PN ---
Subjective Progress Note Date: 06/30/22 Patient was seen and examined. No acute events overnight. Patient reports no chest pain today. She reports no epigastric pain. No nausea or vomiting. General: [non toxic], [no distress], [appears at stated age] Derm: [warm], [dry] Head: [atraumatic], [normocephalic], [symmetric] Eyes: [EOMI], [no lid lag], [anicteric sclera] Mouth: [no lip lesion], [mucus membranes moist] Cardiovascular: [S1S2 reg], [no murmur] Lungs: [CTA bilateral], [no rhonchi, no rales] , [no accessory muscle use] Abdominal: [soft], [ nontender to palpation], [no guarding], [no appreciable organomegaly] Ext: [no gross muscle atrophy], [no edema], [no contractures] Neuro: [no focal neuro deficits] Psych: [Alert], [oriented], [appropriate affect] Chest pain, rule out acute coronary event -Cardiology consult, plans for stress test today -Telemetry monitoring -ACS ruled out -Cardiac diet -Aspirin, atorvastatin, and metoprolol -Lipid profile shows total cholesterol of 173, HDL of 93.6, LDL of 65.6 -Echocardiogram shows EF of 60-65% with no regional wall motion abnormalities Epigastric pain rule out esophagitis versus gastritis -CT abdomen and pelvis revealing previous Oc fundoplication with mild circumferential wall thickening of distal esophagus correlate for possible esophagitis, circumferential wall thickening possibly representing gastritis direct visualization as clinically indicated. -Gen. surgery consulted, plans for EGD tomorrow -GI prophylaxis with Protonix 40 mg IVP twice daily -Clear liquid diet Cystic-appearing lesion within the Unicinate process of the pancreas -Patient will need a six-month follow-up pancreas MRI to reassess Paroxysmal Atrial fibrillation -Continue anticoagulation with Eliquis Hypertension -Monitor vital signs and continue daily medication regimen with metoprolol. Hyperlipidemia -Continue daily medication regimen with atorvastatin 20 mg nightly. Insulin-dependent diabetes mellitus -Glycemic protocol with NovoLog sliding scale and continuation of Levemir 9 units nightly. The patient is admitted with an anticipated less than 2 midnight stay for evaluation of chest pain CODE STATUS: Full code DVT prophylaxis: Eliquwarren Discussed with: Patient and RN Anticipated discharge date: 1-2 days Objective - Vital Signs Vital signs: Vital Signs Temp 98.4 F 06/30/22 15:00 Pulse 77 06/30/22 15:00 Resp 18 06/30/22 15:00 BP 126/76 06/30/22 15:00 Pulse Ox 99 06/30/22 15:00 FiO2 Intake & Output 06/29/22 06/30/22 06/30/22 18:59 06:59 18:59 Intake Total 240 Balance 240 Weight 63.9 kg 63.9 kg Intake: Oral 240 Other: # Voids 1 1 - Labs CBC & Chem 7: 06/29/22 11:40 06/29/22 11:40 Labs: Abnormal Lab Results - Last 24 Hours (Table) 06/29/22 06/29/22 06/29/22 Range/Units 18:11 19:16 21:08 POC Glucose (mg/dL) 217 H 244 H 150 H (70-110) mg/dL HDL Cholesterol (40.00-60.00) mg/dL 06/30/22 06/30/22 06/30/22 Range/Units 04:53 07:40 13:25 POC Glucose (mg/dL) 190 H 199 H (70-110) mg/dL HDL Cholesterol 93.60 H (40.00-60.00) mg/dL 06/30/22 Range/Units 17:15 POC Glucose (mg/dL) 148 H (70-110) mg/dL HDL Cholesterol (40.00-60.00) mg/dL
[2022-06-30 20:21] LABS: Glucose,Whole Blood 141 mg/dL (70-110)
[2022-06-30] MEDS: INSULIN DETEMIR (LEVEMIR) 100 UNIT/ML SYR SQ SCH (20:23)
[2022-06-30] MEDS: ATORVASTATIN 20 MG TAB PO SCH (20:23)
[2022-07-01 07:38] LABS: Glucose,Whole Blood 94 mg/dL (70-110)
[2022-07-01 07:59] VITALS: RESP 18; TEMP 98
--- NOTE | 2022-07-01 08:32 | CA ---
Dobutamine Stress Echocardiogram Report Madison Mauricio Age: 67 Gender: F : 1955 Exam Date: 06/30/2022 12:06 Exam Location: [place] [facility] Ordering Physician: Orlin Fernandez MD ([id number]) Referring Physician: Rebecca DYKES Robotic Machine Tender Production: Elenita Johnson RDCS Technologist: Ht (in): 63 Wt (lb): 140 Procedure CPT: Indication: CP ICD-9 Codes: Rhythm: Patient History: Cardiac Medications: Medications in past 24 hours: Contrast: Total Dose (mL): Stress Results Protocol: Dobutamine Peak Dose (???g/kg/min): 30 Duration (min:sec): Atropine:(mg) Target HR: 128 Double Product: [id number] Resting HR: 75 Resting BP: 129 / 74 Peak HR: 128 Peak BP: 126 / 65 Max Predicted HR: 151 85 % Max Predicted HR Stress Summary: BP Response: Reason for Termination: TARGET HR REACHED/MAX EXERTION Cardiac Symptoms: ECG Analysis Resting EKG: Normal sinus rhythm normal axis normal intervals Stress EKG: No evidence of ischemia Arrhythmia: No cardiac arrhythmia Echo Analysis Base Echo Analysis: Normal left ventricle a size wall motion systolic function Low Echo Anaylsis: Normal response Peak Echo Analysis: No evidence of dobutamine induced wall motion abnormality Recovery Echo: Normal MEASUREMENTS (Male/Female) Normal Values CONCLUSIONS Negative stress test by EKG criteria Negative dobutamine stress echo Dr. Orlin Fernandez MD (Electronically Signed) Final Date: 01 July 2022 08:31
[2022-07-01 08:38] LABS: HCT 39.2 % (34.0-46.0); HGB 12.8 gm/dL (11.4-16.0); MCH 30.6 pg (25.0-35.0); MCHC 32.7 g/dL (31.0-37.0); MCV 93.7 fL (80.0-100.0); Mean Platelet Volume 7.4; Platelet Count 238 k/uL (150-450); RBC 4.18 m/uL (3.80-5.40); RDW 11.9 % (11.5-15.5); WBC 3.9 k/uL (3.8-10.6)
[2022-07-01] MEDS: INSULIN ASPART (NovoLOG) 100 UNIT/ML VIAL SQ SCH ×2 (08:39→13:19)
[2022-07-01 08:55] LABS: African American GFR (CKD) 81 (>60 ml/min/1.73 sqM); Anion Gap 12 mmol/L; Blood Urea Nitrogen 14 mg/dL (7-17); Calcium 9.6 mg/dL (8.4-10.2); Carbon Dioxide 28 mmol/L (22-30); Chloride 99 mmol/L (98-107); Glucose 104 mg/dL (74-99); Non-African American GFR(CKD) 70 (>60 ml/min/1.73 sqM); Potassium 3.8 mmol/L (3.5-5.1); Sodium 139 mmol/L (137-145)
[2022-07-01] MEDS: PANTOPRAZOLE 40 MG/10 ML VIAL IVP SCH (09:07)
[2022-07-01] MEDS ORDERED: PROPOFOL 10 MG/ML 20 ML VIAL IV ONE (12:06)
[2022-07-01] MEDS ORDERED: IV FLUID CONTINUATION 1,000 ML IV ONE (12:16)
--- NOTE | 2022-07-01 12:22 | P.OP ---
Date of Procedure: 07/01/22 Preoperative Diagnosis: Esophagitis Postoperative Diagnosis: Antral gastritis No evidence of hiatal hernia No evidence of esophagitis Procedure(s) Performed: EGD Anesthesia: MAC Surgeon: John Nicholson Pathology: other (Antrum) Condition: stable Disposition: PACU Description of Procedure: The patient's placed on the endoscopy table in the lateral position. She received IV sedation. The gastro-/oropharynx passed in the esophagus and the stomach. Scope was then placed through the pylorus. The first and second portion of the duodenum appeared normal. Scope was then brought back the antrum and this appeared mildly inflamed. A biopsies performed. The scope was unretroflexed and remainder the stomach appeared normal. There was no significant hiatal hernia. The GE junction was at 40 cms. The distal esophagus appeared normal. There is no significant inflammation. The proximal esophagus. Normal. Scope withdrawn for patient.
[2022-07-01] MEDS: CALCIUM CARB-VIT D 500 MG-5 MCG TAB PO SCH (12:37)
[2022-07-01] MEDS: MULTIVITAMINS, THERA 1 EACH TAB PO SCH (12:37)
[2022-07-01] MEDS: ASPIRIN 325 MG TAB PO SCH (12:37)
[2022-07-01] MEDS: METOPROLOL TARTRATE 12.5 MG TAB PO SCH (12:38)
[2022-07-01] MEDS: CITALOPRAM HYDROBROMIDE 10 MG TAB PO SCH (12:38)
[2022-07-01 12:43] LABS: Glucose,Whole Blood 180 mg/dL (70-110)
--- NOTE | 2022-07-01 13:18 | P.DS ---
Providers Date of admission: 06/29/22 13:12 Expected date of discharge: 07/01/22 Attending physician: Geovanna Villela DO Consults: 06/29/22 13:42 Consult Physician Urgent Consulting Provider: Orlin Fernandez Consult Reason/Comments: chest pain Do you want consulting provider notified?: Yes 06/29/22 19:19 Consult Physician Routine Consulting Provider: John Nicholson Consult Reason/Comments: CT concerning for esophagitis &possibly gastritis, pt w/ CP, RUQ, & epigatr Do you want consulting provider notified?: Yes Primary care physician: [facility] Course: Patient is a very pleasant 67-year-old female with a past medical history of atrial fibrillation on anticoagulation with Eliquis, hypertension, hyperlipid emia, and insulin-dependent diabetes mellitus. She presented to the emergency department with a chief complaint of chest pain. Patient reports she woke up this morning with pain to substernal chest epigastric region. Patient reports pain begins epigastric region radiates into midsternal chest and then into her back. Patient reports associated nausea but denies any episodes of vomiting, dizziness, lightheadedness, or diaphoresis. Patient also denies having any palpitations, shortness of breath, or exertional dyspnea. Patient denies having any numbness/tingling/weakness/swelling in her extremities. Patient reports taking daily medications including anticoagulant as prescribed without missing any doses. She underwent full evaluation in the emergency department. EKG was completed showing normal sinus rhythm at 68 bpm with no signs of acute ischemia. Chest x-ray negative for acute cardiopulmonary process. CBC, coags, and CMP showing no significant abnormalities. Troponin negative at less than 0.012 and pro-BMP 298. Patient admitted under our services with consultation to cardiology. Troponins were trended and ACS was ruled out. Cardiology was consulted and recommended echocardiogram and stress test. Echocardiogram showed EF of 60-65% with no regional wall motion abnormalities. Dobutamine stress echo was negative. CT AP showed mild circumferential wall thickening of the distal esophagus and stomach. Gen. surgery was consulted and recommended EGD. EGD showed gastritis. Patient was advised to refrain against alcohol, caffeinated beverages, spicy and fatty foods. Patient was seen and examined on 07/01/2022. She reported no chest pain or epigastric pain. No nausea or vomiting. She is advised follow-up with her PCP within 1-2 days of discharge. She is advised that she will need further workup of the cystic lesions seen in her pancreas including MRI to rule out pancreatic cancer with her PCP. She is advised to follow-up with for results of the biopsy taken during EGD. Patient verbalized understanding of the plan. General: [non toxic], [no distress], [appears at stated age] Derm: [warm], [dry] Head: [atraumatic], [normocephalic], [symmetric] Eyes: [EOMI], [no lid lag], [anicteric sclera] Mouth: [no lip lesion], [mucus membranes moist] Cardiovascular: [S1S2 reg], [no murmur] Lungs: [CTA bilateral], [no rhonchi, no rales] , [no accessory muscle use] Abdominal: [soft], [ nontender to palpation], [no guarding], [no appreciable organomegaly] Ext: [no gross muscle atrophy], [no edema], [no contractures] Neuro: [no focal neuro deficits] Psych: [Alert], [oriented], [appropriate affect] Discharge Diagnosis: Chest pain Epigastric pain related to gastritis Cystic-appearing lesion within the Unicinate process of the pancreas Paroxysmal Atrial fibrillation Hypertension Dyslipidemia Insulin-dependent diabetes mellitus Pertinent Studies: Echocardiogram Dobutamine stress test Procedures: EGD Patient Condition at Discharge: Stable Plan - Discharge Summary Discharge Rx Participant: No New Discharge Prescriptions: New Pantoprazole [Protonix] 40 mg PO DAILY #30 tab Continue Apixaban [Eliquis] 5 mg PO BID #60 tab Aspirin 81 mg PO DAILY 30 Days #30 tab Metoprolol Tartrate [Lopressor] 12.5 mg PO BID Citalopram Hydrobromide [CeleXA] 10 mg PO DAILY Multivit-Min/Iron/Folic/Lutein [Centrum Silver Women Tablet] 2 tab PO DAILY Atorvastatin [Lipitor] 20 mg PO HS Calcium Carbonate/Vitamin D3 [Calcium 500 mg-Vit D3 5 mcg (200 Unit)] 1 tab PO BID Insulin Glargine [Lantus Vial] 9 unit SQ HS #10 ml INSULIN ASPART (NovoLOG) [NovoLOG (formulary)] 3 unit SQ AC-TID #1 each Alendronate Sodium [Fosamax] 70 mg PO WEEKLY Discharge Medication List Apixaban [Eliquis] 5 mg PO BID #60 tab 05/19/21 [Rx] Aspirin 81 mg PO DAILY 30 Days #30 tab 10/01/21 [Rx] Citalopram Hydrobromide [CeleXA] 10 mg PO DAILY 12/03/21 [History] Metoprolol Tartrate [Lopressor] 12.5 mg PO BID 12/03/21 [History] Multivit-Min/Iron/Folic/Lutein [Centrum Silver Women Tablet] 2 tab PO DAILY 02/23/22 [History] Atorvastatin [Lipitor] 20 mg PO HS 05/01/22 [History] Calcium Carbonate/Vitamin D3 [Calcium 500 mg-Vit D3 5 mcg (200 Unit)] 1 tab PO BID 05/01/22 [History] INSULIN ASPART (NovoLOG) [NovoLOG (formulary)] 3 unit SQ AC-TID #1 each 05/05/22 [Rx] Insulin Glargine [Lantus Vial] 9 unit SQ HS #10 ml 05/05/22 [Rx] Alendronate Sodium [Fosamax] 70 mg PO WEEKLY 06/29/22 [History] Pantoprazole [Protonix] 40 mg PO DAILY #30 tab 07/01/22 [Rx] Follow up Appointment(s)/Referral(s): [facility],Clinic [Primary Care Provider] - 1-2 days John Nicholson MD [STAFF PHYSICIAN] - 1 Week Activity/Diet/Wound Care/Special Instructions: Diet: Cardiac Please restrict caffeine, nicotine, spicy and fatty foods. Please follow-up with surgery Dr. Nicholson for results of your biopsy during EGD. Follow-up with your PCP within 1-2 days of discharge. Take all medications as advised. Come back to the ED for worsening chest pain, shortness breath, palpitations or lightheadedness. YOU WILL NEED FURTHER WORKUP OF THE CYSTIC MASS SEEN IN YOUR PANCREAS TO RULE OUT PANCREATIC CANCER. PLEASE FOLLOW UP WITH YOUR PCP TO OBTAIN A MRI OF THE PANCREAS. Discharge Disposition: HOME SELF-CARE
[2022-07-01 15:02] VITALS: PULSE 73
[2022-07-01 15:47] VITALS: BP 119/68
--- NOTE | 2022-07-01 22:54 | PN ---
PROGRESS NOTE Madison is a 67-year-old lady who was admitted to hospital with chest pain and ruled out for myocardial infarction. On a stress test I performed, she does not have any evidence of ischemia. This morning she is doing well and is free of symptoms. PHYSICAL EXAMINATION: VITAL SIGNS: Stable. NECK: There is jugular venous distention. CHEST: Reveals good air entry bilaterally. HEART: Reveals first and second heart sounds. No gallop. EXTREMITIES: Examination of extremities did not reveal any edema. Peripheral pulses are felt. ASSESSMENT: 1. Chest pain. 2. Hypertension. 3. History of atrial fibrillation. PLAN: The patient is doing well. She will continue current medications. Stable for discharge. MMODL / IJN: [id number] /
[2022-07-06] MEDS ORDERED: NON FORMULARY DRUG (Alendronate Sodium [Fosamax] 70 MG Tablet) PO SCH (09:00)
== END 2022-07-01 16:25 | disposition home or self-care (01) ==
LOC: EC 11:14 → 6NMEDSUR 13:12
PROVIDERS: ADMIT Internal Medicine; ATTEND Internal Medicine
DX: K29.50 Unspecified chronic gastritis without bleeding (principal); K21.00 Gastro-esophageal reflux disease with esophagitis, without bleeding; K86.9 Disease of pancreas, unspecified; I48.0 Paroxysmal atrial fibrillation; I10 Essential (primary) hypertension; E78.5 Hyperlipidemia, unspecified; E11.9 Type 2 diabetes mellitus without complications; Z79.01 Long term (current) use of anticoagulants; Z79.4 Long term (current) use of insulin; Z79.83 Long term (current) use of bisphosphonates; Z79.899 Other long term (current) drug therapy; Z86.73 Personal history of transient ischemic attack (TIA), and cerebral infarction without residual deficits; G40.909 Epilepsy, unspecified, not intractable, without status epilepticus; Z90.721 Acquired absence of ovaries, unilateral; F32.A Depression, unspecified; Z83.49 Family history of other endocrine, nutritional and metabolic diseases; Z90.49 Acquired absence of other specified parts of digestive tract; Z82.49 Family history of ischemic heart disease and other diseases of the circulatory system; Z79.82 Long term (current) use of aspirin; Z88.0 Allergy status to penicillin
CPT/HCPCS: 96376; 96375 ×2; 96374; 99285; 36415; 93005; 93306; 93351; 88305; 83880; 80061; 80053; 80048; 83735; 84484; 85025; 85027; 85610; 85730; 71046; 74177; 43239; G0378 ×3; J2270; J2405; J2704; C9113 ×3; Q9967

== ENCOUNTER 2022-07-19 11:02 | Emergency (ER) | payer MEDICARE ==
[2022-07-19 11:11] LABS: Glucose,Whole Blood 105 mg/dL (70-110)
[2022-07-19 11:17] VITALS: TEMP 97.9
--- NOTE | 2022-07-19 11:38 | ED ---
General Adult HPI - General Chief complaint: Recheck/Abnormal Lab/Rx Stated complaint: Low blood sugar Time Seen by Provider: 07/19/22 11:07 Source: EMS Mode of arrival: EMS Limitations: no limitations - History of Present Illness Initial comments: Dictation was produced using [employer] dictation software. please excuse any grammatical, word or spelling errors. Chief Complaint: 67-year-old insulin-dependent diabetic presents to the [facility] room for hypoglycemia History of Present Illness: 67-year-old insulin-dependent diabetic presents to the ER after being found with hypoglycemia. She is found the floor by family. Glucose was checked and found to be 35. EMS was called. EMS arrived and provided patient with dextrose. Patient states she hasn't been feeling well for the last 2-3 days. Denies any pain complaints. No constitutional symptoms. No shortness of breath. Patient states she feels fine at the bedside. She states she's been applied with her diabetes medications and eating normally like she is supposed to. The ROS documented in this emergency department record has been reviewed and confirmed by me. Those systems with pertinent positive or negative responses have been documented in the HPI. All other systems are other negative and/or noncontributory. PHYSICAL EXAM: General Impression: Alert and oriented x3, not in acute distress HEENT: Normocephalic atraumatic, extra-ocular movements intact, pupils equal and reactive to light bilaterally, mucous membranes moist. Cardiovascular: Heart regular rate and rhythm Chest: Able to complete full sentences, no retractions, no tachypnea Abdomen: abdomen soft, non-tender, non-distended, no organomegaly Musculoskeletal: Pulses present and equal in all extremities, no peripheral edema Motor: no focal deficits noted Neurological: CN II-XII grossly intact, no focal motor or sensory deficits noted Skin: Intact with no visualized rashes Psych: Normal affect and mood ED course: 67-year-old female presents emergency department for hypoglycemia. As upon arrival are within acceptable limits. Portable care blood glucose at 11:00 was 105. Blood glucose levels were trended for several hours. Initial blood glucose was 105 at 11 AM. Checked again at 11:30 with the level of 93, checked again 45 minutes later level LXXXVI check again at 145 with the level CXXIII. Labs are unremarkable. CBC, metabolic panel is within acceptable limits. Urinalysis is negative. Patient reevaluated at bedside at 2:00 PM found to be in stable medical condition. She states that she feels though she is an motor without complications and tolerated oral intake. He is not on any oral anti- hyperglycemic agents. She does live with family. Patient told to continue monitoring her blood sugars. Return precautions discussed. - Related Data Home Medications Medication Instructions Recorded Confirmed Citalopram Hydrobromide [CeleXA] 10 mg PO DAILY 12/03/21 06/29/22 Metoprolol Tartrate [Lopressor] 12.5 mg PO BID 12/03/21 06/29/22 Multivit-Min/Iron/Folic/Lutein 2 tab PO DAILY 02/23/22 06/29/22 [Centrum Silver Women Tablet] Atorvastatin [Lipitor] 20 mg PO HS 05/01/22 06/29/22 Calcium Carbonate/Vitamin D3 1 tab PO BID 05/01/22 06/29/22 [Calcium 500 mg-Vit D3 5 mcg (200 Unit)] Alendronate Sodium [Fosamax] 70 mg PO WEEKLY 06/29/22 06/29/22 Previous Rx's Medication Instructions Recorded Apixaban [Eliquis] 5 mg PO BID #60 tab 05/19/21 Aspirin 81 mg PO DAILY 30 Days #30 tab 10/01/21 INSULIN ASPART (NovoLOG) [NovoLOG 3 unit SQ AC-TID #1 each 05/05/22 (formulary)] Insulin Glargine [Lantus Vial] 9 unit SQ HS #10 ml 05/05/22 Pantoprazole [Protonix] 40 mg PO DAILY #30 tab 07/01/22 Allergies Allergy/AdvReac Type Severity Reaction Status Date / Time Penicillins Allergy Family Verified 06/29/22 13:28 History Review of Systems ROS Statement: Those systems with pertinent positive or pertinent negative responses have been documented in the HPI. ROS Other: All systems not noted in ROS Statement are negative. 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 Needs to use a child's one. mother has diff coming out Past Psychological History: Depression Additional Psychological History / Comment(s): Single but lives with adult child stefan and grandchildren. Was in the stationed in the [facility] mostly in [employer] [facility]. Not noted to have a significant alcohol or recreational drug use Smoking Status: Never smoker Past Alcohol Use History: None Reported Past Drug Use History: None Reported - Past Family History Mother Family Medical History: Thyroid Disorder Additional Family Medical History / Comment(s): thyroid removed Father Family Medical History: Myocardial Infarction ([place]) General Exam Limitations: no limitations Course Vital Signs 07/19/22 07/19/22 11:12 12:58 Temperature 97.9 F Pulse Rate 83 81 Respiratory 18 18 Rate Blood Pressure 94/75 125/76 O2 Sat by Pulse 96 97 Oximetry Medical Decision Making - Lab Data Result diagrams: 07/19/22 11:36 07/19/22 11:36 Lab Results 07/19/22 07/19/22 07/19/22 Range/Units 11:10 11:36 11:36 WBC 3.3 L (3.8-10.6) k/uL RBC 3.75 L (3.80-5.40) m/uL Hgb 11.5 (11.4-16.0) gm/dL Hct 34.8 (34.0-46.0) % MCV 92.9 (80.0-100.0) fL MCH 30.6 (25.0-35.0) pg MCHC 32.9 (31.0-37.0) g/dL RDW 11.8 (11.5-15.5) % Plt Count 227 (150-450) k/uL MPV 7.9 Neutrophils % 68 % Lymphocytes % 20 % Monocytes % 7 % Eosinophils % 2 % Basophils % 0 % Neutrophils # 2.2 (1.3-7.7) k/uL Lymphocytes # 0.6 L (1.0-4.8) k/uL Monocytes # 0.2 (0-1.0) k/uL Eosinophils # 0.1 (0-0.7) k/uL Basophils # 0.0 (0-0.2) k/uL Sodium 137 (137-145) mmol/L Potassium 4.0 (3.5-5.1) mmol/L Chloride 103 (98-107) mmol/L Carbon Dioxide 27 (22-30) mmol/L Anion Gap 7 mmol/L BUN 24 H (7-17) mg/dL Creatinine 0.75 (0.52-1.04) mg/dL Est GFR (CKD-EPI)AfAm >90 (>60 ml/min/1.73 sqM) Est GFR (CKD-EPI)NonAf 82 (>60 ml/min/1.73 sqM) Glucose 93 (74-99) mg/dL POC Glucose (mg/dL) 105 (70-110) mg/dL POC Glu Account Solutions Analyst ID [place], Sebastian Calcium 9.1 (8.4-10.2) mg/dL Urine Color Urine Appearance (Clear) Urine pH (5.0-8.0) Ur Specific [place] (1.001-1.035) Urine Protein (Negative) Urine Glucose (UA) (Negative) Urine Ketones (Negative) Urine Blood (Negative) Urine Nitrite (Negative) Urine Bilirubin (Negative) Urine Urobilinogen (<2.0) mg/dL Ur Leukocyte Esterase (Negative) Urine RBC (0-5) /hpf Urine WBC (0-5) /hpf Ur Squamous Epith Cells (0-4) /hpf 07/19/22 07/19/22 07/19/22 Range/Units 12:28 12:58 13:47 WBC (3.8-10.6) k/uL RBC (3.80-5.40) m/uL Hgb (11.4-16.0) gm/dL Hct (34.0-46.0) % MCV (80.0-100.0) fL MCH (25.0-35.0) pg MCHC (31.0-37.0) g/dL RDW (11.5-15.5) % Plt Count (150-450) k/uL MPV Neutrophils % % Lymphocytes % % Monocytes % % Eosinophils % % Basophils % % Neutrophils # (1.3-7.7) k/uL Lymphocytes # (1.0-4.8) k/uL Monocytes # (0-1.0) k/uL Eosinophils # (0-0.7) k/uL Basophils # (0-0.2) k/uL Sodium (137-145) mmol/L Potassium (3.5-5.1) mmol/L Chloride (98-107) mmol/L Carbon Dioxide (22-30) mmol/L Anion Gap mmol/L BUN (7-17) mg/dL Creatinine (0.52-1.04) mg/dL Est GFR (CKD-EPI)AfAm (>60 ml/min/1.73 sqM) Est GFR (CKD-EPI)NonAf (>60 ml/min/1.73 sqM) Glucose (74-99) mg/dL POC Glucose (mg/dL) 86 123 H (70-110) mg/dL POC Glu Account Solutions Analyst ID Dionisio TheresaSebastian Bailey Calcium (8.4-10.2) mg/dL Urine Color Light Yellow Urine Appearance Clear (Clear) Urine pH 6.0 (5.0-8.0) Ur Specific [place] 1.011 (1.001-1.035) Urine Protein Negative (Negative) Urine Glucose (UA) 3+ H (Negative) Urine Ketones Negative (Negative) Urine Blood Negative (Negative) Urine Nitrite Negative (Negative) Urine Bilirubin Negative (Negative) Urine Urobilinogen <2.0 (<2.0) mg/dL Ur Leukocyte Esterase Trace H (Negative) Urine RBC 1 (0-5) /hpf Urine WBC 1 (0-5) /hpf Ur Squamous Epith Cells 1 (0-4) /hpf Disposition Clinical Impression: Hypoglycemic event in diabetes Disposition: HOME SELF-CARE Condition: Fair Instructions (If sedation given, give patient instructions): Hypoglycemia in a Person with Diabetes (ED) Is patient prescribed a controlled substance at d/c from ED?: No Referrals: None,Stated [REFERRING] - 1-2 days Time of Disposition: 13:52
[2022-07-19 11:42] LABS: Basophils % (A) 0 %; Eosinophils # (A) 0.1 k/uL (0-0.7); Eosinophils % (A) 2 %; HCT 34.8 % (34.0-46.0); HGB 11.5 gm/dL (11.4-16.0); Lymphocytes # (A) 0.6 k/uL (1.0-4.8); Lymphocytes % (A) 20 %; MCH 30.6 pg (25.0-35.0); MCHC 32.9 g/dL (31.0-37.0); MCV 92.9 fL (80.0-100.0); Mean Platelet Volume 7.9; Monocytes # (A) 0.2 k/uL (0-1.0); Monocytes % (A) 7 %; Neutrophils # (A) 2.2 k/uL (1.3-7.7); Neutrophils % (A) 68 %; Platelet Count 227 k/uL (150-450); RBC 3.75 m/uL (3.80-5.40); RDW 11.8 % (11.5-15.5); WBC 3.3 k/uL (3.8-10.6)
[2022-07-19 12:00] LABS: African American GFR (CKD) >90 (>60 ml/min/1.73 sqM); Anion Gap 7 mmol/L; Blood Urea Nitrogen 24 mg/dL (7-17); Calcium 9.1 mg/dL (8.4-10.2); Carbon Dioxide 27 mmol/L (22-30); Chloride 103 mmol/L (98-107); Glucose 93 mg/dL (74-99); Non-African American GFR(CKD) 82 (>60 ml/min/1.73 sqM); Sodium 137 mmol/L (137-145)
[2022-07-19 12:30] LABS: Glucose,Whole Blood 86 mg/dL (70-110)
[2022-07-19 13:11] LABS: Appearance,Urine Clear (Clear); Bilirubin,Urine Negative (Negative); Blood,Urine Negative (Negative); Color,Urine Light Yellow; Glucose,Urine (UA) 3+ (Negative); Ketones,Urine Negative (Negative); Leukocyte Esterase,Urine Trace (Negative); Nitrite,Urine Negative (Negative); Protein,Urine Negative (Negative); RBC,Urine 1 /hpf (0-5); Specific Gravity,Urine 1.011 (1.001-1.035); Squamous Epithelial Cell,Urine 1 /hpf (0-4); Urobilinogen,Urine <2.0 mg/dL (<2.0); WBC,Urine 1 /hpf (0-5)
[2022-07-19 13:49] LABS: Glucose,Whole Blood 123 mg/dL (70-110)
[2022-07-19 14:36] VITALS: BP 126/67; PULSE 86; RESP 15
== END 2022-07-19 16:18 | disposition home or self-care (01) ==
LOC: EC 11:02
DX: E11.649 Type 2 diabetes mellitus with hypoglycemia without coma (principal); K21.9 Gastro-esophageal reflux disease without esophagitis; E07.9 Disorder of thyroid, unspecified; Z86.73 Personal history of transient ischemic attack (TIA), and cerebral infarction without residual deficits; Z79.83 Long term (current) use of bisphosphonates; Z79.899 Other long term (current) drug therapy; Z82.49 Family history of ischemic heart disease and other diseases of the circulatory system; Z88.0 Allergy status to penicillin
CPT/HCPCS: 36415; 80048; 81001; 85025; 93005; 99283

== ENCOUNTER 2022-08-12 20:20 | Inpatient (IN) | payer OTHER, MEDICARE ==
--- NOTE | 2022-08-12 21:22 | XR ---
EXAMINATION TYPE: XR chest 2V DATE OF EXAM: 08/12/2022 9:07 PM COMPARISON: Chest radiographs from 06/29/2022. TECHNIQUE: XR chest 2V Frontal and lateral views of the chest. CLINICAL INDICATION:Female, 67 years old with history of altered mental status; FINDINGS: Lungs/Pleura: No evidence of pneumothorax, pleural effusion or focal consolidation. Chronic senescent parenchymal changes. Pulmonary vascularity: Unremarkable. Heart/mediastinum: Cardiomediastinal silhouette is unremarkable. Musculoskeletal: Multiple level degenerative disc disease changes seen throughout the spine. IMPRESSION: No acute cardiopulmonary disease/process.
[2022-08-13 01:04] LABS: Basophils % (A) 1 %; Eosinophils # (A) 0.1 k/uL (0-0.7); Eosinophils % (A) 2 %; HCT 39.2 % (34.0-46.0); HGB 12.4 gm/dL (11.4-16.0); Lymphocytes # (A) 1.3 k/uL (1.0-4.8); Lymphocytes % (A) 30 %; MCH 30.1 pg (25.0-35.0); MCHC 31.6 g/dL (31.0-37.0); MCV 95.3 fL (80.0-100.0); Mean Platelet Volume 8.1; Monocytes # (A) 0.3 k/uL (0-1.0); Monocytes % (A) 7 %; Neutrophils # (A) 2.5 k/uL (1.3-7.7); Neutrophils % (A) 58 %; Platelet Count 204 k/uL (150-450); RBC 4.11 m/uL (3.80-5.40); RDW 12.3 % (11.5-15.5); WBC 4.4 k/uL (3.8-10.6)
[2022-08-13 01:37] LABS: INR 0.9 (<1.2); Partial Thromboplastin Time 17.8 sec (22.0-30.0); Prothrombin Time 10.1 sec (9.0-12.0)
--- NOTE | 2022-08-13 01:40 | CT ---
EXAMINATION TYPE: CT brain wo con DATE OF EXAM: 08/13/2022 COMPARISON: 01/15/2022 HISTORY: FALL X2, DOESN'T REMEMBER CT DLP: 1066.6 mGycm Automated exposure control for dose reduction was used. There is cerebral cortical atrophy. There is no mass effect or midline shift. No sign of intracranial hemorrhage. The calvarium is intact. 7 mm hypodensity left thalamus related to old lacunar infarct. IMPRESSION: Cerebral atrophy. Old lacunar infarct left thalamus. No significant change.
[2022-08-13 02:00] LABS: Amphetamine Screen,Urine Not Detected (NotDetected); Barbiturate Screen,Urine Not Detected (NotDetected); Benzodiazepines Screen,Urine Not Detected (NotDetected); Cocaine Screen,Urine Not Detected (NotDetected); Methadone Screen, Urine Not Detected (NotDetected); Opiate Screen,Urine Not Detected (NotDetected); Oxycodone Screen, Urine Not Detected (NotDetected); Phencyclidine Screen,Urine Not Detected (NotDetected); Tricyclic Antidepressant,Urine Not Detected (NotDetected); Urn Cannabinoid Scrn Not Detected (NotDetected)
[2022-08-13 05:05] LABS: Albumin 4.3 g/dL (3.5-5.0); Calcium 9.7 mg/dL (8.4-10.2); Total Bilirubin 0.8 mg/dL (0.2-1.3); Total Protein 6.9 g/dL (6.3-8.2)
[2022-08-13] MEDS ORDERED: SODIUM CHLORIDE 0.9% 1,000 ML IV ONE ×2 (05:15)
[2022-08-13] MEDS ORDERED: INSULIN REGULAR 100 UNIT/ML VIAL (IV) SQ STA (05:15)
[2022-08-13 06:11] LABS: Glucose,Whole Blood 508 mg/dL (70-110)
--- NOTE | 2022-08-13 06:24 | ED ---
Altered Mental Status HPI - General Chief Complaint: Altered Mental Status Stated Complaint: AMS Time Seen by Provider: 08/13/22 00:09 Source: patient Mode of arrival: ambulatory Limitations: no limitations - History of Present Illness Initial Comments: 's patient is 67-year-old woman who is here to have evaluation for altered mental status. The patient's family reported she had been confused and forgetful. When I question the patient, she states mainly that she is feeling rundown and fatigued. The patient denies symptoms of infection, no fever or chills no chest pain, dyspnea. Patient denies focal weakness or numbness. The patient does acknowledge having difficulties with controlling her blood sugar. MD Complaint: altered mental status, confusion -: days(s) Severity: moderate Context: diabetes Associated Symptoms: denies other symptoms - Related Data Home Medications Medication Instructions Recorded Confirmed Citalopram Hydrobromide [CeleXA] 10 mg PO DAILY 12/03/21 08/13/22 Metoprolol Tartrate [Lopressor] 12.5 mg PO BID 12/03/21 08/13/22 Multivit-Min/Iron/Folic/Lutein 2 tab PO DAILY 02/23/22 08/13/22 [Centrum Silver Women Tablet] Atorvastatin [Lipitor] 20 mg PO HS 05/01/22 08/13/22 Calcium Carbonate/Vitamin D3 1 tab PO BID 05/01/22 08/13/22 [Calcium 500 mg-Vit D3 5 mcg (200 Unit)] Alendronate Sodium [Fosamax] 70 mg PO Q7D 06/29/22 08/13/22 Previous Rx's Medication Instructions Recorded Apixaban [Eliquis] 5 mg PO BID #60 tab 05/19/21 Aspirin 81 mg PO DAILY 30 Days #30 tab 10/01/21 Insulin Glargine [Lantus Vial] 9 unit SQ HS #10 ml 05/05/22 Pantoprazole [Protonix] 40 mg PO DAILY #30 tab 07/01/22 INSULIN ASPART (NovoLOG) [NovoLOG 9 unit SQ AC-TID #0 08/16/22 (formulary)] Magnesium Oxide [Mag-Ox] 400 mg PO DAILY 30 Days #30 tab 08/16/22 Allergies Allergy/AdvReac Type Severity Reaction Status Date / Time Penicillins Allergy Family Verified 08/13/22 07:39 History Review of Systems ROS Statement: Those systems with pertinent positive or pertinent negative responses have been documented in the HPI. ROS Other: All systems not noted in ROS Statement are negative. Constitutional: Denies: fever Respiratory: Denies: cough, dyspnea Cardiovascular: Denies: chest pain, palpitations Gastrointestinal: Reports: nausea. Denies: abdominal pain, vomiting, diarrhea, constipation Genitourinary: Denies: dysuria, hematuria Musculoskeletal: Denies: back pain Skin: Denies: rash Neurological: Reports: confusion. 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 Needs to use a child's one. mother has diff coming out Past Psychological History: Depression Smoking Status: Never smoker Past Alcohol Use History: None Reported Past Drug Use History: None Reported - Past Family History Mother Family Medical History: Thyroid Disorder Additional Family Medical History / Comment(s): thyroid removed Father Family Medical History: Myocardial Infarction ([place]) General Exam Limitations: no limitations General appearance: alert, in no apparent distress Head exam: Present: atraumatic, normocephalic Eye exam: Present: normal appearance. Absent: scleral icterus, conjunctival injection ENT exam: Present: mucous membranes dry Neck exam: Present: normal inspection Respiratory exam: Present: normal lung sounds bilaterally. Absent: respiratory distress, wheezes, rales, rhonchi, stridor Cardiovascular Exam: Present: regular rate, normal rhythm, normal heart sounds. Absent: systolic murmur, diastolic murmur, rubs, gallop GI/Abdominal exam: Present: soft. Absent: distended, tenderness, guarding, rebound, rigid, mass Extremities exam: Present: normal inspection, normal capillary refill. Absent: pedal edema, calf tenderness Back exam: Present: normal inspection. Absent: CVA tenderness (R), CVA ten derness (L) Neurological exam: Present: alert, oriented X3 (Patient is oriented person and place however not able to state the date.), CN II-XII intact. Absent: motor sensory deficit Skin exam: Present: warm, dry, intact, normal color. Absent: rash Course Vital Signs 08/12/22 08/13/22 08/13/22 20:42 04:42 07:24 Temperature 97.9 F 98 F 98.2 F Pulse Rate 100 102 H 90 Pulse Rate [ Pulse Oximetery ] Respiratory 20 19 16 Rate Blood Pressure 125/65 140/74 121/71 Blood Pressure [Right Arm] O2 Sat by Pulse 98 96 97 Oximetry 08/13/22 08/13/22 08/13/22 08:43 09:23 10:41 Temperature 97.9 F 97.6 F Pulse Rate 70 89 76 Pulse Rate [ Pulse Oximetery ] Respiratory 16 16 16 Rate Blood Pressure 105/57 123/57 118/63 Blood Pressure [Right Arm] O2 Sat by Pulse 96 Oximetry 08/13/22 08/13/22 08/13/22 11:46 13:34 14:21 Temperature 97.8 F 98 F Pulse Rate 68 70 Pulse Rate [ Pulse Oximetery ] Respiratory 16 16 16 Rate Blood Pressure 104/57 103/67 Blood Pressure [Right Arm] O2 Sat by Pulse 97 97 Oximetry 08/13/22 17:52 Temperature 97.4 F L Pulse Rate Pulse Rate [ 90 Pulse Oximetery ] Respiratory 16 Rate Blood Pressure Blood Pressure 112/70 [Right Arm] O2 Sat by Pulse 97 Oximetry Medical Decision Making - Lab Data Result diagrams: 08/15/22 07:49 08/15/22 07:49 Lab Results 08/13/22 08/13/22 08/13/22 Range/Units 00:51 00:51 00:51 WBC 4.4 (3.8-10.6) k/uL RBC 4.11 (3.80-5.40) m/uL Hgb 12.4 (11.4-16.0) gm/dL Hct 39.2 (34.0-46.0) % MCV 95.3 (80.0-100.0) fL MCH 30.1 (25.0-35.0) pg MCHC 31.6 (31.0-37.0) g/dL RDW 12.3 (11.5-15.5) % Plt Count 204 (150-450) k/uL MPV 8.1 Neutrophils % 58 % Lymphocytes % 30 % Monocytes % 7 % Eosinophils % 2 % Basophils % 1 % Neutrophils # 2.5 (1.3-7.7) k/uL Lymphocytes # 1.3 (1.0-4.8) k/uL Monocytes # 0.3 (0-1.0) k/uL Eosinophils # 0.1 (0-0.7) k/uL Basophils # 0.0 (0-0.2) k/uL PT 10.1 (9.0-12.0) sec INR 0.9 (<1.2) APTT 17.8 L (22.0-30.0) sec Sodium (137-145) mmol/L Potassium (3.5-5.1) mmol/L Chloride (98-107) mmol/L Carbon Dioxide (22-30) mmol/L Anion Gap mmol/L BUN (7-17) mg/dL Creatinine (0.52-1.04) mg/dL Est GFR (CKD-EPI)AfAm (>60 ml/min/1.73 sqM) Est GFR (CKD-EPI)NonAf (>60 ml/min/1.73 sqM) Glucose (74-99) mg/dL POC Glucose (mg/dL) (70-110) mg/dL POC Glu Spray Gun Repairer ID Estimated Ave Glu mg/dL Hemoglobin A1c (0.0-6.0) % Calcium (8.4-10.2) mg/dL Total Bilirubin (0.2-1.3) mg/dL AST (14-36) U/L ALT (4-34) U/L Alkaline Phosphatase (38-126) U/L Troponin I <0.012 (0.000-0.034) ng/mL Total Protein (6.3-8.2) g/dL Albumin (3.5-5.0) g/dL Urine Opiates Screen (NotDetected) Ur Oxycodone Screen (NotDetected) Urine Methadone Screen (NotDetected) Ur Propoxyphene Screen (NotDetected) Ur Barbiturates Screen (NotDetected) U Tricyclic Antidepress (NotDetected) Ur Phencyclidine Scrn (NotDetected) Ur Amphetamines Screen (NotDetected) U Methamphetamines Scrn (NotDetected) U Benzodiazepines Scrn (NotDetected) Urine Cocaine Screen (NotDetected) U Marijuana (THC) Screen (NotDetected) Acetone, Qual (Negative) 08/13/22 08/13/22 08/13/22 Range/Units 00:51 01:34 04:36 WBC (3.8-10.6) k/uL RBC (3.80-5.40) m/uL Hgb (11.4-16.0) gm/dL Hct (34.0-46.0) % MCV (80.0-100.0) fL MCH (25.0-35.0) pg MCHC (31.0-37.0) g/dL RDW (11.5-15.5) % Plt Count (150-450) k/uL MPV Neutrophils % % Lymphocytes % % Monocytes % % Eosinophils % % Basophils % % Neutrophils # (1.3-7.7) k/uL Lymphocytes # (1.0-4.8) k/uL Monocytes # (0-1.0) k/uL Eosinophils # (0-0.7) k/uL Basophils # (0-0.2) k/uL PT (9.0-12.0) sec INR (<1.2) APTT (22.0-30.0) sec Sodium 126 L (137-145) mmol/L Potassium 5.0 (3.5-5.1) mmol/L Chloride 91 L (98-107) mmol/L Carbon Dioxide 13 L (22-30) mmol/L Anion Gap 22 mmol/L BUN 25 H (7-17) mg/dL Creatinine 0.97 (0.52-1.04) mg/dL Est GFR (CKD-EPI)AfAm 69 (>60 ml/min/1.73 sqM) Est GFR (CKD-EPI)NonAf 60 (>60 ml/min/1.73 sqM) Glucose 589 H* (74-99) mg/dL POC Glucose (mg/dL) (70-110) mg/dL POC Glu Spray Gun Repairer ID Estimated Ave Glu mg/dL 249 Hemoglobin A1c 10.3 H (0.0-6.0) % Calcium 9.7 (8.4-10.2) mg/dL Total Bilirubin 0.8 (0.2-1.3) mg/dL AST 24 (14-36) U/L ALT 15 (4-34) U/L Alkaline Phosphatase 40 (38-126) U/L Troponin I (0.000-0.034) ng/mL Total Protein 6.9 (6.3-8.2) g/dL Albumin 4.3 (3.5-5.0) g/dL Urine Opiates Screen Not Detected (NotDetected) Ur Oxycodone Screen Not Detected (NotDetected) Urine Methadone Screen Not Detected (NotDetected) Ur Propoxyphene Screen Not Detected (NotDetected) Ur Barbiturates Screen Not Detected (NotDetected) U Tricyclic Antidepress Not Detected (NotDetected) Ur Phencyclidine Scrn Not Detected (NotDetected) Ur Amphetamines Screen Not Detected (NotDetected) U Methamphetamines Scrn Not Detected (NotDetected) U Benzodiazepines Scrn Not Detected (NotDetected) Urine Cocaine Screen Not Detected (NotDetected) U Marijuana (THC) Screen Not Detected (NotDetected) Acetone, Qual (Negative) 08/13/22 08/13/22 08/13/22 Range/Units 05:19 06:11 07:22 WBC (3.8-10.6) k/uL RBC (3.80-5.40) m/uL Hgb (11.4-16.0) gm/dL Hct (34.0-46.0) % MCV (80.0-100.0) fL MCH (25.0-35.0) pg MCHC (31.0-37.0) g/dL RDW (11.5-15.5) % Plt Count (150-450) k/uL MPV Neutrophils % % Lymphocytes % % Monocytes % % Eosinophils % % Basophils % % Neutrophils # (1.3-7.7) k/uL Lymphocytes # (1.0-4.8) k/uL Monocytes # (0-1.0) k/uL Eosinophils # (0-0.7) k/uL Basophils # (0-0.2) k/uL PT (9.0-12.0) sec INR (<1.2) APTT (22.0-30.0) sec Sodium (137-145) mmol/L Potassium (3.5-5.1) mmol/L Chloride (98-107) mmol/L Carbon Dioxide (22-30) mmol/L Anion Gap mmol/L BUN (7-17) mg/dL Creatinine (0.52-1.04) mg/dL Est GFR (CKD-EPI)AfAm (>60 ml/min/1.73 sqM) Est GFR (CKD-EPI)NonAf (>60 ml/min/1.73 sqM) Glucose (74-99) mg/dL POC Glucose (mg/dL) 508 H 333 H (70-110) mg/dL POC Glu Spray Gun Repairer CORNELIA Erlin [place] Santos Carol [address] Glu mg/dL Hemoglobin A1c (0.0-6.0) % Calcium (8.4-10.2) mg/dL Total Bilirubin (0.2-1.3) mg/dL AST (14-36) U/L ALT (4-34) U/L Alkaline Phosphatase (38-126) U/L Troponin I (0.000-0.034) ng/mL Total Protein (6.3-8.2) g/dL Albumin (3.5-5.0) g/dL Urine Opiates Screen (NotDetected) Ur Oxycodone Screen (NotDetected) Urine Methadone Screen (NotDetected) Ur Propoxyphene Screen (NotDetected) Ur Barbiturates Screen (NotDetected) U Tricyclic Antidepress (NotDetected) Ur Phencyclidine Scrn (NotDetected) Ur Amphetamines Screen (NotDetected) U Methamphetamines Scrn (NotDetected) U Benzodiazepines Scrn (NotDetected) Urine Cocaine Screen (NotDetected) U Marijuana (THC) Screen (NotDetected) Acetone, Qual Positive (Negative) Disposition Clinical Impression: Hyperglycemia due to diabetes mellitus Disposition: ADMITTED IP TO THIS [facility] Condition: Good Is patient prescribed a controlled substance at d/c from ED?: No
[2022-08-13 07:24] LABS: Glucose,Whole Blood 333 mg/dL (70-110)
[2022-08-13] MEDS ORDERED: DEXTROSE 50% SYRINGE 50 ML IVP PRN ×2 (08:46)
--- NOTE | 2022-08-13 08:48 | P.HPIM ---
History of Present Illness H&P Date: 08/13/22 History of Presenting Illness: Patient is a very pleasant 67-year-old female with a past medical history of type 1 diabetes mellitus, atrial fibrillation on anticoagulation with Eliquis, hypertension, hyperlipidemia, GERD, seizure disorder, and previous CVA/TIA. Patient presented to the emergency department overnight with a chief complaint of altered mental status. Patient's family reported the patient has been noted to have increased confusion and forgetfulness over the past couple days and that her blood sugars were not being controlled. Upon arrival to the emergency department patient was reportedly alert to person, place, and situation but un able to give exact date. She underwent full evaluation. Labs completed and were concerning for diabetic ketoacidosis with hyperglycemia with glucose of 589, Pseudohyponatremia with sodium of 126 and corrected sodium of 134, hypochloremia with chloride of 91, carbon dioxide 13, and anion gap of 22. Qualitative acetone positive. CBC and CMP otherwise showing no significant abnormalities. Urine drug screen was negative. CT head revealing old lacunar infarct of left thalamus no significant changes. EKG sinus tachycardia at 101 bpm. Troponin negative at less than 0.012. Chest x-ray was negative for acute cardiopulmonary process. Vital signs unremarkable. Patient was given a 2 L bolus of 0.9% normal saline along with 8 units of insulin which resulted in significant improvement of blood glucose levels down to 223. Patient admitted under our services for DKA at this time. Patient seen and fully evaluated at bedside in the emergency department. Patient alert to person, place, time, and situation. Patient reports 2021 but unable to give exact date. Patient is a poor historian regarding exact medical history. She reports being diagnosed with diabetes as a teenager and states that she has had some difficulties with controlling her blood glucose levels at home. Patient states that she has taken her insulin as prescribed but states it is still remained elevated. She denies having any recent illnesses or infections, fevers, chills, diaphoresis, headache, lightheadedness, dizziness, chest pain, palpitations, shortness of breath, abdominal pain, nausea, vomiting, changes in appetite, or experiencing any changes in her difficulties with bowel function including exp eriencing any urinary frequency, urgency, or dysuria. Review of systems: Pertinent positives and negatives as discussed in HPI, a complete review of systems was performed and all other systems are negative. Physical exam: Vital signs reviewed and stable. General: Nontoxic, no distress and appears stated age. Derm: Skin warm and dry, normal coloration for ethnicity. Head: Atraumatic, normocephalic and symmetric. Eyes: EOMs intact, no lid lag, and anicteric sclera Mouth: no lip lesions, mucus membranes moist Cardiovascular: regular rate and rhythm with normal S1S2, no murmur, positive posterior tibial pulses bilaterally, and cap refill < 2 seconds. Lungs: Respirations even, regular, and unlabored on room air. Lungs CTA bilaterally, no rhonchi, no rales, no wheezing, and no accessory muscle usage. Abdominal: soft, nontender to palpation, no guarding, no appreciable organomegaly Ext: ROM intact. No gross muscle atrophy, no edema, no contractures Neuro: Speech clear, face symmetrical and CN II-XII grossly intact with no noted focal neuro deficits Psych: Alert and oriented to person, place, time, and situation. Appropriate and pleasant affect. Assessment and Plan of Care: DKA Hyperglycemia in a Type 1 insulin-dependent diabetic with poorly controlled blood glucose Metabolic encephalopathy secondary to poorly controlled blood glucose levels and beginning of DKA. -Labs completed and were concerning for diabetic ketoacidosis with hyperglycemia with glucose of 589, Pseudohyponatremia with sodium of 126 and corrected sodium of 134, hypochloremia with chloride of 91, carbon dioxide 13, and anion gap of 22. Qualitative acetone also positive. -Glucose significantly improved down to 223 status post 2 L bolus administration of 8 units insulin in the emergency department. -Patient does not require an insulin drip at this time. We will repeat CBC and CMP, obtain a urinalysis, and provide patient with continued IV fluid hydration. -Patient to resume scheduled NovoLog 10 units 3 times daily with meals as well as Levemir 9 units nightly. In addition we will place patient on glycemic protocol with NovoLog sliding scale. Based upon additional insulin needs, we will likely increase home Levemir. -Hemoglobin A1c to be completed -Urinalysis with reflex to culture Pseudohyponatremia with sodium of 126 and corrected sodium of 134 Paroxysmal atrial fibrillation -Continue anticoagulation with Eliquis, Hypertension -Monitor vital signs and continue daily medication regimen with metoprolol. Blood pressures appear to be well controlled at this time. Hyperlipidemia -Continue daily medication regimen with atorvastatin. GERD -Continue Protonix 40 mg daily. 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 Needs to use a child's one. mother has diff coming out Past Psychological History: Depression Smoking Status: Never smoker Past Alcohol Use History: None Reported Past Drug Use History: None Reported - Past Family History Mother Family Medical History: Thyroid Disorder Additional Family Medical History / Comment(s): thyroid removed Father Family Medical History: Myocardial Infarction ([place]) Medications and Allergies Home Medications Medication Instructions Recorded Confirmed Type Apixaban [Eliquis] 5 mg PO BID #60 tab 05/19/21 08/13/22 Rx Aspirin 81 mg PO DAILY 30 Days #30 tab 10/01/21 08/13/22 Rx Citalopram Hydrobromide [CeleXA] 10 mg PO DAILY 12/03/21 08/13/22 History Metoprolol Tartrate [Lopressor] 12.5 mg PO BID 12/03/21 08/13/22 History Multivit-Min/Iron/Folic/Lutein 2 tab PO DAILY 02/23/22 08/13/22 History [Centrum Silver Women Tablet] Atorvastatin [Lipitor] 20 mg PO HS 05/01/22 08/13/22 History Calcium Carbonate/Vitamin D3 1 tab PO BID 05/01/22 08/13/22 History [Calcium 500 mg-Vit D3 5 mcg (200 Unit)] Insulin Glargine [Lantus Vial] 9 unit SQ HS #10 ml 05/05/22 08/13/22 Rx Alendronate Sodium [Fosamax] 70 mg PO Q7D 06/29/22 08/13/22 History Pantoprazole [Protonix] 40 mg PO DAILY #30 tab 07/01/22 08/13/22 Rx INSULIN ASPART (NovoLOG) [NovoLOG 10 unit SQ AC-TID 08/13/22 08/13/22 History (formulary)] Allergies Allergy/AdvReac Type Severity Reaction Status Date / Time Penicillins Allergy Family Verified 08/13/22 07:39 History Physical Exam Vitals: Vital Signs Temp Pulse Resp BP Pulse Ox 08/13/22 08:43 97.9 F 70 16 105/57 96 08/13/22 07:24 98.2 F 90 16 121/71 97 08/13/22 04:42 98 F 102 H 19 140/74 96 08/12/22 20:42 97.9 F 100 20 125/65 98 Intake and Output 08/12/22 08/13/22 08/13/22 22:59 06:59 14:59 Other: Weight 54.431 kg Results CBC & Chem 7: 08/13/22 00:51 08/13/22 04:36 Labs: Abnormal Lab Results - Last 24 Hours (Table) 08/13/22 08/13/22 08/13/22 Range/Units 00:51 04:36 06:11 APTT 17.8 L (22.0-30.0) sec Sodium 126 L (137-145) mmol/L Chloride 91 L (98-107) mmol/L Carbon Dioxide 13 L (22-30) mmol/L BUN 25 H (7-17) mg/dL Glucose 589 H* (74-99) mg/dL POC Glucose (mg/dL) 508 H (70-110) mg/dL 08/13/22 Range/Units 07:22 APTT (22.0-30.0) sec Sodium (137-145) mmol/L Chloride (98-107) mmol/L Carbon Dioxide (22-30) mmol/L BUN (7-17) mg/dL Glucose (74-99) mg/dL POC Glucose (mg/dL) 333 H (70-110) mg/dL
[2022-08-13 08:55] LABS: Glucose,Whole Blood 223 mg/dL (70-110)
[2022-08-13] MEDS: MULTIVITAMINS, THERA 1 EACH TAB PO SCH (09:34)
[2022-08-13] MEDS: PANTOPRAZOLE 40 MG TABLET PO SCH (09:34)
[2022-08-13] MEDS: ASPIRIN 81 MG PO SCH (09:34)
[2022-08-13] MEDS: APIXABAN 5 MG TAB PO SCH ×2 (09:34→20:59)
[2022-08-13] MEDS: CITALOPRAM HYDROBROMIDE 10 MG TAB PO SCH (09:34)
[2022-08-13] MEDS: METOPROLOL TARTRATE 12.5 MG TAB PO SCH ×2 (09:34→20:59)
[2022-08-13] MEDS: CALCIUM CARB-VIT D 500 MG-5 MCG TAB PO SCH ×2 (09:34→20:59)
[2022-08-13 11:47] LABS: Glucose,Whole Blood 388 mg/dL (70-110)
[2022-08-13] MEDS: INSULIN ASPART (NovoLOG) 100 UNIT/ML VIAL SQ SCH ×5 (12:37→21:05)
[2022-08-13 14:22] LABS: Glucose,Whole Blood 237 mg/dL (70-110)
[2022-08-13] MEDS: SODIUM CHLORIDE 0.9% 1,000 ML IV SCH ×2 (14:55→23:27)
[2022-08-13 15:40] LABS: HCT 34.1 % (34.0-46.0); HGB 11.1 gm/dL (11.4-16.0); MCHC 32.7 g/dL (31.0-37.0); MCV 94.8 fL (80.0-100.0); Mean Platelet Volume 7.8; Platelet Count 190 k/uL (150-450); RDW 12.2 % (11.5-15.5); WBC 4.4 k/uL (3.8-10.6)
[2022-08-13 15:53] LABS: Albumin 3.8 g/dL (3.5-5.0); Calcium 9.2 mg/dL (8.4-10.2); Magnesium 1.7 mg/dL (1.6-2.3); Potassium 4.4 mmol/L (3.5-5.1); Total Bilirubin 0.7 mg/dL (0.2-1.3); Total Protein 6.4 g/dL (6.3-8.2)
[2022-08-13 17:31] LABS: Glucose,Whole Blood 104 mg/dL (70-110)
[2022-08-13 18:51] LABS: Glucose,Whole Blood 305 mg/dL (70-110)
[2022-08-13] MEDS: ATORVASTATIN 20 MG TAB PO SCH (20:59)
[2022-08-13] MEDS ORDERED: INSULIN DETEMIR (LEVEMIR) 100 UNIT/ML SYR SQ SCH (21:00)
[2022-08-13 21:05] LABS: Glucose,Whole Blood 315 mg/dL (70-110)
[2022-08-14 05:53] LABS: Glucose,Whole Blood 58 mg/dL (70-110)
[2022-08-14 06:12] LABS: Glucose,Whole Blood 82 mg/dL (70-110)
[2022-08-14] MEDS: INSULIN ASPART (NovoLOG) 100 UNIT/ML VIAL SQ SCH ×4 (06:15→17:16)
[2022-08-14] MEDS: PANTOPRAZOLE 40 MG TABLET PO SCH (06:30)
[2022-08-14] MEDS: MULTIVITAMINS, THERA 1 EACH TAB PO SCH (10:03)
[2022-08-14] MEDS: METOPROLOL TARTRATE 12.5 MG TAB PO SCH ×2 (10:03→20:41)
[2022-08-14] MEDS: APIXABAN 5 MG TAB PO SCH ×2 (10:03→20:41)
[2022-08-14] MEDS: CITALOPRAM HYDROBROMIDE 10 MG TAB PO SCH (10:03)
[2022-08-14] MEDS: ASPIRIN 81 MG PO SCH (10:04)
[2022-08-14] MEDS: SODIUM CHLORIDE 0.9% 1,000 ML IV SCH ×3 (10:04→20:41)
[2022-08-14] MEDS: CALCIUM CARB-VIT D 500 MG-5 MCG TAB PO SCH ×2 (10:04→20:41)
[2022-08-14 12:23] LABS: Glucose,Whole Blood 367 mg/dL (70-110)
--- NOTE | 2022-08-14 14:24 | P.PN ---
Subjective Progress Note Date: 08/14/22 Hospital Course: Patient is a very pleasant 67-year-old female with a past medical history of type 1 diabetes mellitus, atrial fibrillation on anticoagulation with Eliquis, hypertension, hyperlipidemia, GERD, seizure disorder, and previous CVA/TIA. Patient presented to the emergency department overnight with a chief complaint of altered mental status. Patient's family reported the patient has been noted to have increased confusion and forgetfulness over the past couple days and that her blood sugars were not being controlled. Upon arrival to the emergency department patient was reportedly alert to person, place, and situation but unable to give exact date. She underwent full evaluation. Labs completed and were concerning for diabetic ketoacidosis with hyperglycemia with glucose of 589, Pseudohyponatremia with sodium of 126 and corrected sodium of 134, hypochloremia with chloride of 91, carbon dioxide 13, and anion gap of 22. Qualitative acetone positive. CBC and CMP otherwise showing no significant abnormalities. Urine drug screen was negative. CT head revealing old lacunar infarct of left thalamus no significant changes. EKG sinus tachycardia at 101 bpm. Troponin negative at less than 0.012. Chest x-ray was negative for acute cardiopulmonary process. Vital signs unremarkable. Patient was given a 2 L bolus of 0.9% normal saline along with 8 units of insulin which resulted in significant improvement of blood glucose levels down to 223. Patient admitted under our services for DKA at this time. Physical exam: Patient seen and fully evaluated at bedside this morning. Patient was a little more informative this morning and states that she has taken the same insulin regimen for many years now. She denies any recent changes stating she takes 10 units of NovoLog 3x daily and 9 units of Lantus nightly but states her blood glucose levels have been elevated for quite some time (>3 months) and that she has had difficulties controlling them with current insulin regimen. 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 Sliding scale stopped at this time and slight changes made to patient's daily insulin regimen in attempts to provide better control of daytime hyperglycemia without risking further episodes of hypoglycemia. Vital signs reviewed and stable. General: Nontoxic, no distress and appears stated age. Derm: Skin warm and dry, normal coloration for ethnicity. Head: Atraumatic, normocephalic and symmetric. Eyes: EOMs intact, no lid lag, and anicteric sclera Mouth: no lip lesions, mucus membranes moist Cardiovascular: regular rate and rhythm with normal S1S2, no murmur, positive posterior tibial pulses bilaterally, and cap refill < 2 seconds. Lungs: Respirations even, regular, and unlabored on room air. Lungs CTA bilaterally, no rhonchi, no rales, no wheezing, and no accessory muscle usage. Abdominal: soft, nontender to palpation, no guarding, no appreciable organomegaly Ext: ROM intact. No gross muscle atrophy, no edema, no contractures Neuro: Speech clear, face symmetrical and CN II-XII grossly intact with no noted focal neuro deficits Psych: Alert and oriented to person, place, time, and situation. Appropriate and pleasant affect. Assessment and Plan of Care: DKA Hyperglycemia in a Type 1 insulin-dependent diabetic with poorly controlled blood glucose Metabolic encephalopathy secondary to poorly controlled blood glucose levels and beginning of DKA. -Anion gap closed -We will repeat CBC and CMP, obtain a urinalysis, and provide patient with continued IV fluid hydration. -Hemoglobin A1c 10.3%. -Changes made to home medication regimen including increase of NovoLog 12 units 3 times daily with meals as well as increase of Levemir 12 units nightly. -Continue with glycemic protocol and close monitoring of glucose levels, -Urinalysis with reflex to culture Pseudohyponatremia with sodium of 126 and corrected sodium of 134 Paroxysmal atrial fibrillation -Continue anticoagulation with Eliquis, Hypertension -Monitor vital signs and continue daily medication regimen with metoprolol. Blood pressures appear to be well controlled at this time. Hyperlipidemia -Continue daily medication regimen with atorvastatin. GERD -Continue Protonix 40 mg daily. The patient is admitted with an anticipated greater than 2 midnight stay for evaluation of DKA CODE STATUS: Full code DVT prophylaxis: Eliquis Discussed with: Patient and RN Anticipated discharge date: Likely 1-[address]: Home A total of 35 minutes was spent on the care of this complex patient more than 50% of the time was spent in counseling and care coordination. Objective - Vital Signs Vital signs: Vital Signs Temp 97.6 F 08/14/22 04:00 Pulse 89 08/14/22 04:00 Resp 16 08/14/22 04:00 BP 122/58 08/14/22 04:00 Pulse Ox 98 08/14/22 04:00 FiO2 Intake & Output 08/13/22 08/14/22 08/14/22 18:59 06:59 18:59 Intake Total 10 Balance 10 Weight 54.431 kg Intake: IV 10 Invasive Line 1 10 Other: Voiding Method Toilet Toilet - Labs CBC & Chem 7: 08/13/22 15:13 08/13/22 15:13 Labs: Abnormal Lab Results - Last 24 Hours (Table) 08/13/22 08/13/22 08/13/22 Range/Units 00:51 08:53 11:46 RBC (3.80-5.40) m/uL Hgb (11.4-16.0) gm/dL Sodium (137-145) mmol/L Glucose (74-99) mg/dL POC Glucose (mg/dL) 223 H 388 H (70-110) mg/dL Hemoglobin A1c 10.3 H (0.0-6.0) % Alkaline Phosphatase (38-126) U/L 08/13/22 08/13/22 08/13/22 Range/Units 14:20 15:13 15:13 RBC 3.60 L (3.80-5.40) m/uL Hgb 11.1 L (11.4-16.0) gm/dL Sodium 133 L (137-145) mmol/L Glucose 196 H (74-99) mg/dL POC Glucose (mg/dL) 237 H (70-110) mg/dL Hemoglobin A1c (0.0-6.0) % Alkaline Phosphatase 35 L (38-126) U/L 08/13/22 08/13/22 08/14/22 Range/Units 18:49 21:04 05:52 RBC (3.80-5.40) m/uL Hgb (11.4-16.0) gm/dL Sodium (137-145) mmol/L Glucose (74-99) mg/dL POC Glucose (mg/dL) 305 H 315 H 58 L (70-110) mg/dL Hemoglobin A1c (0.0-6.0) % Alkaline Phosphatase (38-126) U/L
[2022-08-14 14:25] VITALS: BMI 21.2
[2022-08-14 15:07] LABS: HCT 32.4 % (34.0-46.0); HGB 10.7 gm/dL (11.4-16.0); MCH 31.2 pg (25.0-35.0); MCHC 32.9 g/dL (31.0-37.0); MCV 94.8 fL (80.0-100.0); Mean Platelet Volume 7.9; Platelet Count 185 k/uL (150-450); RBC 3.42 m/uL (3.80-5.40); RDW 12.4 % (11.5-15.5); WBC 3.6 k/uL (3.8-10.6)
[2022-08-14 15:17] LABS: ALT 16 U/L (4-34); AST 26 U/L (14-36); African American GFR (CKD) >90 (>60 ml/min/1.73 sqM); Albumin 3.6 g/dL (3.5-5.0); Alkaline Phosphatase 32 U/L (38-126); Anion Gap 14 mmol/L; Blood Urea Nitrogen 11 mg/dL (7-17); Calcium 8.9 mg/dL (8.4-10.2); Carbon Dioxide 20 mmol/L (22-30); Chloride 101 mmol/L (98-107); Glucose 180 mg/dL (74-99); Magnesium 1.4 mg/dL (1.6-2.3); Non-African American GFR(CKD) 79 (>60 ml/min/1.73 sqM); Potassium 3.7 mmol/L (3.5-5.1); Sodium 135 mmol/L (137-145); Total Bilirubin 0.2 mg/dL (0.2-1.3); Total Protein 6.2 g/dL (6.3-8.2)
[2022-08-14 16:37] LABS: Glucose,Whole Blood 121 mg/dL (70-110)
[2022-08-14 20:28] LABS: Glucose,Whole Blood 47 mg/dL (70-110)
[2022-08-14] MEDS: INSULIN DETEMIR (LEVEMIR) 100 UNIT/ML SYR SQ SCH (20:29)
[2022-08-14] MEDS: ATORVASTATIN 20 MG TAB PO SCH (20:41)
[2022-08-14 20:45] LABS: Glucose,Whole Blood 49 mg/dL (70-110)
[2022-08-14] MEDS ORDERED: INSULIN DETEMIR (LEVEMIR) 100 UNIT/ML SYR SQ SCH (21:00)
[2022-08-14 21:04] LABS: Glucose,Whole Blood 66 mg/dL (70-110)
[2022-08-14 21:21] LABS: Glucose,Whole Blood 87 mg/dL (70-110)
[2022-08-15 01:51] LABS: Glucose,Whole Blood 414 mg/dL (70-110)
[2022-08-15] MEDS: INSULIN DETEMIR (LEVEMIR) 100 UNIT/ML SYR SQ SCH (01:53)
[2022-08-15] MEDS: INSULIN ASPART (NovoLOG) 100 UNIT/ML VIAL SQ SCH ×10 (02:21→20:48)
[2022-08-15] MEDS: SODIUM CHLORIDE 0.9% 1,000 ML IV SCH ×3 (03:29→22:52)
[2022-08-15 05:56] LABS: Glucose,Whole Blood 124 mg/dL (70-110)
[2022-08-15] MEDS: PANTOPRAZOLE 40 MG TABLET PO SCH (06:31)
[2022-08-15 08:25] LABS: HCT 34.3 % (34.0-46.0); HGB 11.2 gm/dL (11.4-16.0); MCHC 32.7 g/dL (31.0-37.0); MCV 91.9 fL (80.0-100.0); Mean Platelet Volume 7.5; Platelet Count 186 k/uL (150-450); RBC 3.73 m/uL (3.80-5.40); RDW 12.2 % (11.5-15.5); WBC 3.6 k/uL (3.8-10.6)
[2022-08-15 08:47] LABS: ALT 13 U/L (4-34); AST 25 U/L (14-36); African American GFR (CKD) >90 (>60 ml/min/1.73 sqM); Albumin 3.7 g/dL (3.5-5.0); Alkaline Phosphatase 33 U/L (38-126); Anion Gap 8 mmol/L; Blood Urea Nitrogen 14 mg/dL (7-17); Calcium 9.3 mg/dL (8.4-10.2); Carbon Dioxide 28 mmol/L (22-30); Chloride 102 mmol/L (98-107); Glucose 70 mg/dL (74-99); Magnesium 1.7 mg/dL (1.6-2.3); Non-African American GFR(CKD) 89 (>60 ml/min/1.73 sqM); Potassium 3.9 mmol/L (3.5-5.1); Sodium 138 mmol/L (137-145); Total Bilirubin 0.3 mg/dL (0.2-1.3); Total Protein 6.2 g/dL (6.3-8.2)
[2022-08-15 08:56] LABS: Glucose,Whole Blood 72 mg/dL (70-110)
[2022-08-15] MEDS: MULTIVITAMINS, THERA 1 EACH TAB PO SCH (08:59)
[2022-08-15] MEDS: CITALOPRAM HYDROBROMIDE 10 MG TAB PO SCH (08:59)
[2022-08-15] MEDS: CALCIUM CARB-VIT D 500 MG-5 MCG TAB PO SCH ×2 (09:00→20:04)
[2022-08-15] MEDS: METOPROLOL TARTRATE 12.5 MG TAB PO SCH ×2 (09:00→20:04)
[2022-08-15] MEDS: APIXABAN 5 MG TAB PO SCH ×2 (09:00→20:04)
[2022-08-15] MEDS: ASPIRIN 81 MG PO SCH (09:00)
[2022-08-15 12:11] LABS: Glucose,Whole Blood 174 mg/dL (70-110)
--- NOTE | 2022-08-15 15:14 | P.PN ---
Subjective Progress Note Date: 08/15/22 Hospital Course: Patient is a very pleasant 67-year-old female with a past medical history of type 1 diabetes mellitus, atrial fibrillation on anticoagulation with Eliquis, hypertension, hyperlipidemia, GERD, seizure disorder, and previous CVA/TIA. Patient presented to the emergency department overnight with a chief complaint of altered mental status. Patient's family reported the patient has been noted to have increased confusion and forgetfulness over the past couple days and that her blood sugars were not being controlled. Upon arrival to the emergency department patient was reportedly alert to person, place, and situation but unable to give exact date. She underwent full evaluation. Labs completed and were concerning for diabetic ketoacidosis with hyperglycemia with glucose of 589, Pseudohyponatremia with sodium of 126 and corrected sodium of 134, hypochloremia with chloride of 91, carbon dioxide 13, and anion gap of 22. Qualitative acetone positive. CBC and CMP otherwise showing no significant abnormalities. Urine drug screen was negative. CT head revealing old lacunar infarct of left thalamus no significant changes. EKG sinus tachycardia at 101 bpm. Troponin negative at less than 0.012. Chest x-ray was negative for acute cardiopulmonary process. Vital signs unremarkable. Patient was given a 2 L bolus of 0.9% normal saline along with 8 units of insulin which resulted in significant improvement of blood glucose levels down to 223. Patient admitted under our services for DKA at this time. Physical exam: Patient seen and fully evaluated at bedside this morning. Patient again having episodes of hypoglycemia yesterday evening and overnight and is currently 68 this morning. We will decrease NovoLog to 10 units 3 times daily with meals and Levemir to 10 units nightly at this time and continue to monitor closely. Awaiting urinalysis to be collected, discussed with patient and RN need for obtaining. Called and updated patient's daughter per request and she states patient has been having difficulties controlling her blood sugars at home and has been awaiting to go down to [facility] to get a new blood glucose monitoring system. Patient's daughter states that sometimes her mother does have difficulties checking her own blood sugar were administering insulin and is not able to confirm how often patient actually administers her insulin at home. At this time we will continue to work towards finding appropriate dose to send patient home and prevent further episodes of hypoglycemia and/or significant hyperglycemia. Morning labs reviewed. Magnesium 1.7 and replaced. Vital signs remained unremarkable. Patient remains alert and oriented to person, place, sit uation, and year but does remain confused to month and/or day. She continues to deny having any complaints at this time. Vital signs reviewed and stable. General: Nontoxic, no distress and appears stated age. Derm: Skin warm and dry, normal coloration for ethnicity. Head: Atraumatic, normocephalic and symmetric. Eyes: EOMs intact, no lid lag, and anicteric sclera Mouth: no lip lesions, mucus membranes moist Cardiovascular: regular rate and rhythm with normal S1S2, no murmur, positive posterior tibial pulses bilaterally, and cap refill < 2 seconds. Lungs: Respirations even, regular, and unlabored on room air. Lungs CTA bilaterally, no rhonchi, no rales, no wheezing, and no accessory muscle usage. Abdominal: soft, nontender to palpation, no guarding, no appreciable organomegaly Ext: ROM intact. No gross muscle atrophy, no edema, no contractures Neuro: Speech clear, face symmetrical and CN II-XII grossly intact with no noted focal neuro deficits Psych: Alert and oriented to person, place, time, and situation. Appropriate and pleasant affect. Assessment and Plan of Care: DKA Hyperglycemia in a Type 1 insulin-dependent diabetic with poorly controlled blood glucose Metabolic encephalopathy secondary to poorly controlled blood glucose levels and beginning of DKA. -Anion gap closed -We will repeat CBC and CMP, obtain a urinalysis, and provide patient with continued IV fluid hydration. -Hemoglobin A1c 10.3%. -Changes made to home medication regimen including increase of NovoLog 12 units 3 times daily with meals as well as increase of Levemir 12 units nightly. -Continue with glycemic protocol and close monitoring of glucose levels, -Urinalysis with reflex to culture Pseudohyponatremia with sodium of 126 and corrected sodium of 134 Paroxysmal atrial fibrillation -Continue anticoagulation with Eliquis, Hypertension -Monitor vital signs and continue daily medication regimen with metoprolol. Blood pressures appear to be well controlled at this time. Hyperlipidemia -Continue daily medication regimen with atorvastatin. GERD -Continue Protonix 40 mg daily. The patient is admitted with an anticipated greater than 2 midnight stay for evaluation of DKA CODE STATUS: Full code DVT prophylaxis: Eliquis Discussed with: Patient and RN Anticipated discharge date: Likely 1-[address]: Home A total of 35 minutes was spent on the care of this complex patient more than 50% of the time was spent in counseling and care coordination. Objective - Vital Signs Vital signs: Vital Signs Temp 98.0 F 08/14/22 15:43 Pulse 90 08/15/22 04:00 Resp 18 08/15/22 04:00 BP 129/62 08/15/22 04:00 Pulse Ox 98 08/15/22 04:00 FiO2 Intake & Output 08/14/22 08/15/22 08/15/22 18:59 06:59 18:59 Intake Total 718 300 Output Total 850 Balance -132 300 Weight 54.431 kg Intake: Oral 718 300 Output: Urine 850 Other: Voiding Method Toilet Toilet # Voids 4 - Labs CBC & Chem 7: 08/15/22 07:49 08/15/22 07:49 Labs: Abnormal Lab Results - Last 24 Hours (Table) 08/14/22 08/14/22 08/14/22 Range/Units 12:17 14:42 14:42 WBC 3.6 L (3.8-10.6) k/uL RBC 3.42 L (3.80-5.40) m/uL Hgb 10.7 L (11.4-16.0) gm/dL Hct 32.4 L (34.0-46.0) % Sodium 135 L (137-145) mmol/L Carbon Dioxide 20 L (22-30) mmol/L Glucose 180 H (74-99) mg/dL POC Glucose (mg/dL) 367 H (70-110) mg/dL Magnesium 1.4 L (1.6-2.3) mg/dL Alkaline Phosphatase 32 L (38-126) U/L Total Protein 6.2 L (6.3-8.2) g/dL 08/14/22 08/14/22 08/14/22 Range/Units 16:32 20:26 20:44 WBC (3.8-10.6) k/uL RBC (3.80-5.40) m/uL Hgb (11.4-16.0) gm/dL Hct (34.0-46.0) % Sodium (137-145) mmol/L Carbon Dioxide (22-30) mmol/L Glucose (74-99) mg/dL POC Glucose (mg/dL) 121 H 47 L 49 L (70-110) mg/dL Magnesium (1.6-2.3) mg/dL Alkaline Phosphatase (38-126) U/L Total Protein (6.3-8.2) g/dL 08/14/22 08/15/22 08/15/22 Range/Units 21:01 01:49 05:54 WBC (3.8-10.6) k/uL RBC (3.80-5.40) m/uL Hgb (11.4-16.0) gm/dL Hct (34.0-46.0) % Sodium (137-145) mmol/L Carbon Dioxide (22-30) mmol/L Glucose (74-99) mg/dL POC Glucose (mg/dL) 66 L 414 H 124 H (70-110) mg/dL Magnesium (1.6-2.3) mg/dL Alkaline Phosphatase (38-126) U/L Total Protein (6.3-8.2) g/dL 08/15/22 Range/Units 07:49 WBC 3.6 L (3.8-10.6) k/uL RBC 3.73 L (3.80-5.40) m/uL Hgb 11.2 L (11.4-16.0) gm/dL Hct (34.0-46.0) % Sodium (137-145) mmol/L Carbon Dioxide (22-30) mmol/L Glucose (74-99) mg/dL POC Glucose (mg/dL) (70-110) mg/dL Magnesium (1.6-2.3) mg/dL Alkaline Phosphatase (38-126) U/L Total Protein (6.3-8.2) g/dL
[2022-08-15 15:34] LABS: Appearance,Urine Clear (Clear); Bilirubin,Urine Negative (Negative); Blood,Urine Negative (Negative); Color,Urine Yellow; Glucose,Urine (UA) 2+ (Negative); Ketones,Urine Negative (Negative); Leukocyte Esterase,Urine Negative (Negative); Nitrite,Urine Negative (Negative); PH, Urine 5.5 (5.0-8.0); Protein,Urine Negative (Negative); Specific Gravity,Urine 1.014 (1.001-1.035); Urobilinogen,Urine <2.0 mg/dL (<2.0)
[2022-08-15] MEDS: MAGNESIUM SULFATE-D5W PMX 1 GM in DEXTROSE/WATER 1 100ML.BAG IVPB SCH ×2 (15:58→17:03)
[2022-08-15 17:22] LABS: Glucose,Whole Blood 205 mg/dL (70-110)
[2022-08-15] MEDS: ATORVASTATIN 20 MG TAB PO SCH (20:04)
[2022-08-15 20:45] LABS: Glucose,Whole Blood 70 mg/dL (70-110)
[2022-08-15] MEDS ORDERED: INSULIN DETEMIR (LEVEMIR) 100 UNIT/ML SYR SQ SCH (21:00)
[2022-08-16 02:01] LABS: Glucose,Whole Blood 334 mg/dL (70-110)
[2022-08-16] MEDS: INSULIN ASPART (NovoLOG) 100 UNIT/ML VIAL SQ SCH ×6 (02:07→17:34)
[2022-08-16 05:59] LABS: Glucose,Whole Blood 229 mg/dL (70-110)
[2022-08-16] MEDS: SODIUM CHLORIDE 0.9% 1,000 ML IV SCH ×2 (06:19→12:54)
[2022-08-16] MEDS: PANTOPRAZOLE 40 MG TABLET PO SCH (06:20)
[2022-08-16] MEDS: METOPROLOL TARTRATE 12.5 MG TAB PO SCH ×2 (10:14→20:05)
[2022-08-16] MEDS: APIXABAN 5 MG TAB PO SCH ×2 (10:14→20:05)
[2022-08-16] MEDS: ASPIRIN 81 MG PO SCH (10:14)
[2022-08-16] MEDS: MULTIVITAMINS, THERA 1 EACH TAB PO SCH (10:14)
[2022-08-16] MEDS: CITALOPRAM HYDROBROMIDE 10 MG TAB PO SCH (10:14)
[2022-08-16] MEDS: CALCIUM CARB-VIT D 500 MG-5 MCG TAB PO SCH ×2 (10:14→20:06)
[2022-08-16 11:43] LABS: Glucose,Whole Blood 248 mg/dL (70-110)
[2022-08-16] MEDS: MAGNESIUM OXIDE 400 MG TAB PO SCH (12:48)
[2022-08-16 16:17] LABS: Glucose,Whole Blood 46 mg/dL (70-110)
[2022-08-16 16:35] LABS: Glucose,Whole Blood 61 mg/dL (70-110)
[2022-08-16 16:50] LABS: Glucose,Whole Blood 77 mg/dL (70-110)
--- NOTE | 2022-08-16 16:58 | P.PN ---
Subjective Progress Note Date: 08/16/22 Hospital Course: Patient is a very pleasant 67-year-old female with a past medical history of type 1 diabetes mellitus, atrial fibrillation on anticoagulation with Eliquis, hypertension, hyperlipidemia, GERD, seizure disorder, and previous CVA/TIA. Patient presented to the emergency department overnight with a chief complaint of altered mental status. Patient's family reported the patient has been noted to have increased confusion and forgetfulness over the past couple days and that her blood sugars were not being controlled. Upon arrival to the emergency department patient was reportedly alert to person, place, and situation but unable to give exact date. She underwent full evaluation. Labs completed and were concerning for diabetic ketoacidosis with hyperglycemia with glucose of 589, Pseudohyponatremia with sodium of 126 and corrected sodium of 134, hypochloremia with chloride of 91, carbon dioxide 13, and anion gap of 22. Qualitative acetone positive. CBC and CMP otherwise showing no significant abnormalities. Urine drug screen was negative. CT head revealing old lacunar infarct of left thalamus no significant changes. EKG sinus tachycardia at 101 bpm. Troponin negative at less than 0.012. Chest x-ray was negative for acute cardiopulmonary process. Vital signs unremarkable. Patient was given a 2 L bolus of 0.9% normal saline along with 8 units of insulin which resulted in significant improvement of blood glucose levels down to 223. Patient admitted under our services for DKA at this time. Physical exam: Patient seen and fully evaluated at bedside this morning. She appeared to be doing well and stated she felt as though she was ready to go back home with her daughter. Patient had been free from any episodes of hypoglycemia over the past 24 hours after decreasing dosages back to baseline home medication as there was concerns that patient was not taking insulin or monitoring her blood glucose levels appropriately at home. Initial plan was for discharge home today and had long discussion with patient and patient's daughter regarding blood glucose management and the importance of controlling glucose levels and following appropriate carb consistent diet. Shortly before discharge, patient's blood glucose was checked and levels dropped from 248 down to 46. Discharge canceled at this time. Patient notified her daughter of canceled discharge. Additional modifications again being made to insulin regimen including decreasing NovoLog down to 9 units 3 times daily with meals and Levemir to 9 units nightly. Patient will require continued monitoring to ensure stabilization of blood glucose levels at this time prior to safely being discharged home with daughter. Would recommend placing patient on sliding scale, however patient adamantly against a sliding scale when discussed stating they were too confusing. Vital signs reviewed and stable. General: Nontoxic, no distress and appears stated age. Derm: Skin warm and dry, normal coloration for ethnicity. Head: Atraumatic, normocephalic and symmetric. Eyes: EOMs intact, no lid lag, and anicteric sclera Mouth: no lip lesions, mucus membranes moist Cardiovascular: regular rate and rhythm with normal S1S2, no murmur, positive posterior tibial pulses bilaterally, and cap refill < 2 seconds. Lungs: Respirations even, regular, and unlabored on room air. Lungs CTA bilaterally, no rhonchi, no rales, no wheezing, and no accessory muscle usage. Abdominal: soft, nontender to palpation, no guarding, no appreciable organomegaly Ext: ROM intact. No gross muscle atrophy, no edema, no contractures Neuro: Speech clear, face symmetrical and CN II-XII grossly intact with no noted focal neuro deficits Psych: Alert and oriented to person, place, time, and situation. Appropriate and pleasant affect. Assessment and Plan of Care: DKA, resolved Poorly controlled diabetes mellitus Recurrent episodes of hypoglycemia Metabolic encephalopathy secondary to poorly controlled blood glucose levels and DKA. -DKA resolved -Multiple adjustments have been made to current insulin regimen as once initial stabilization of blood glucose levels was obtained, patient then began having recurrent episodes of hypoglycemia. -Hemoglobin A1c 10.3%. -Changes made to home medication regimen includecreasing NovoLog to 9 units 3 times daily with meals as well decreasing Levemir 10 9 units nightly. -Continue with glycemic protocol and close monitoring of glucose levels, -Urinalysis negative for infection. Pseudohyponatremia with sodium of 126 and corrected sodium of 134. -Resolved after stabilization of blood sugars. Sodium 138. Paroxysmal atrial fibrillation -Continue anticoagulation with Eliquis. Hypertension -Monitor vital signs and continue daily medication regimen with metoprolol. Blood pressures appear to be well controlled at this time. Hyperlipidemia -Continue daily medication regimen with atorvastatin. GERD -Continue Protonix 40 mg daily. The patient is admitted with an anticipated greater than 2 midnight stay for evaluation of DKA CODE STATUS: Full code DVT prophylaxis: Eliquis Discussed with: Patient, patient's daughter and RN Anticipated discharge date: Tomorrow Anticipated discharge place: Home A total of 35 minutes was spent on the care of this complex patient more than 50% of the time was spent in counseling and care coordination. Objective - Vital Signs Vital signs: Vital Signs Temp 98 F 08/16/22 12:45 Pulse 88 08/16/22 12:45 Resp 16 08/16/22 12:45 BP 121/73 08/16/22 12:45 Pulse Ox 97 08/16/22 12:45 FiO2 Intake & Output 08/15/22 08/16/22 08/16/22 18:59 06:59 18:59 Intake Total 354 880 Output Total 625 800 Balance -271 -800 880 Weight 54.431 kg Intake: Intake, IV Titration 520 Amount Sodium Chloride 0.9% 1, 520 000 ml @ 130 mls/hr IV . Q7H42M [facility] Rx#:[id number] Oral 354 360 Output: Urine 625 800 Other: Voiding Method Toilet Toilet Toilet - Labs CBC & Chem 7: 08/15/22 07:49 08/15/22 07:49 Labs: Abnormal Lab Results - Last 24 Hours (Table) 08/15/22 08/16/22 08/16/22 Range/Units 16:58 01:58 05:58 POC Glucose (mg/dL) 205 H 334 H 229 H (70-110) mg/dL 08/16/22 08/16/22 Range/Units 11:42 16:16 POC Glucose (mg/dL) 248 H 46 L (70-110) mg/dL
[2022-08-16 19:50] LABS: Glucose,Whole Blood 379 mg/dL (70-110)
[2022-08-16] MEDS: ATORVASTATIN 20 MG TAB PO SCH (20:05)
[2022-08-16 20:26] LABS: Glucose,Whole Blood 416 mg/dL (70-110)
[2022-08-16] MEDS ORDERED: INSULIN DETEMIR (LEVEMIR) 100 UNIT/ML SYR SQ SCH (21:00)
[2022-08-16] MEDS ORDERED: INSULIN ASPART (NovoLOG) 100 UNIT/ML VIAL SQ ONE (21:00)
[2022-08-16 23:57] LABS: Glucose,Whole Blood 62 mg/dL (70-110)
[2022-08-17 00:15] LABS: Glucose,Whole Blood 71 mg/dL (70-110)
[2022-08-17 03:24] LABS: Glucose,Whole Blood 64 mg/dL (70-110)
[2022-08-17 03:53] LABS: Glucose,Whole Blood 65 mg/dL (70-110)
[2022-08-17 04:09] LABS: Glucose,Whole Blood 110 mg/dL (70-110)
[2022-08-17] MEDS: PANTOPRAZOLE 40 MG TABLET PO SCH (05:29)
[2022-08-17 06:12] LABS: Glucose,Whole Blood 241 mg/dL (70-110)
[2022-08-17] MEDS: MAGNESIUM OXIDE 400 MG TAB PO SCH (08:24)
[2022-08-17] MEDS: CITALOPRAM HYDROBROMIDE 10 MG TAB PO SCH (08:25)
[2022-08-17] MEDS: METOPROLOL TARTRATE 12.5 MG TAB PO SCH ×2 (08:25→20:17)
[2022-08-17] MEDS: ASPIRIN 81 MG PO SCH (08:25)
[2022-08-17] MEDS: MULTIVITAMINS, THERA 1 EACH TAB PO SCH (08:25)
[2022-08-17] MEDS: CALCIUM CARB-VIT D 500 MG-5 MCG TAB PO SCH ×2 (08:25→20:17)
[2022-08-17] MEDS: APIXABAN 5 MG TAB PO SCH ×2 (08:25→20:17)
[2022-08-17] MEDS: INSULIN ASPART (NovoLOG) 100 UNIT/ML VIAL SQ SCH ×4 (08:25→20:18)
[2022-08-17 12:03] LABS: Glucose,Whole Blood 67 mg/dL (70-110)
[2022-08-17 12:24] LABS: Glucose,Whole Blood 65 mg/dL (70-110)
[2022-08-17 12:42] LABS: Glucose,Whole Blood 103 mg/dL (70-110)
--- NOTE | 2022-08-17 14:01 | P.PN ---
Subjective Progress Note Date: 08/17/22 Hospital Course: Patient is a very pleasant 67-year-old female with a past medical history of type 1 diabetes mellitus, atrial fibrillation on anticoagulation with Eliquis, hypertension, hyperlipidemia, GERD, seizure disorder, and previous CVA/TIA. Patient presented to the emergency department overnight with a chief complaint of altered mental status. Patient's family reported the patient has been noted to have increased confusion and forgetfulness over the past couple days and that her blood sugars were not being controlled. Upon arrival to the emergency department patient was reportedly alert to person, place, and situation but unable to give exact date. She underwent full evaluation. Labs completed and were concerning for diabetic ketoacidosis with hyperglycemia with glucose of 589, Pseudohyponatremia with sodium of 126 and corrected sodium of 134, hypochloremia with chloride of 91, carbon dioxide 13, and anion gap of 22. Qualitative acetone positive. CBC and CMP otherwise showing no significant abnormalities. Urine drug screen was negative. CT head revealing old lacunar infarct of left thalamus no significant changes. EKG sinus tachycardia at 101 bpm. Troponin negative at less than 0.012. Chest x-ray was negative for acute cardiopulmonary process. Vital signs unremarkable. Patient was given a 2 L bolus of 0.9% normal saline along with 8 units of insulin which resulted in significant improvement of blood glucose levels down to 223. Patient admitted under our services for DKA at this time. Physical exam: Patient seen and fully evaluated at bedside this morning. Patient again had episode of hyperglycemia with blood glucose of 416 last night and on-call provider ordered patient a one time dose of 10 units of NovoLog. Patient later became hypoglycemic going from 416 down to 64. Upom evaluation at bedside this morning, glucose levels back up to 241. Pt denies any complaints including any episodes of dizziness, lightheadedness, diaphoresis, nausea, or vomiting.She has been ambulating in room without any reported difficulties. Discussed with patient due to her fragile blood glucose levels, it would be best to discontinue fixed and long acting insulin at this time and patient will need to resume a low dose sliding scale. Patient states that she did like fixed dose better but will go back to a sliding scale as recommended. Vital signs reviewed and stable. General: Nontoxic, no distress and appears stated age. Derm: Skin warm and dry, normal coloration for ethnicity. Head: Atraumatic, normocephalic and symmetric. Eyes: EOMs intact, no lid lag, and anicteric sclera Mouth: no lip lesions, mucus membranes moist Cardiovascular: regular rate and rhythm with normal S1S2, no murmur, positive posterior tibial pulses bilaterally, and cap refill < 2 seconds. Lungs: Respirations even, regular, and unlabored on room air. Lungs CTA bilaterally, no rhonchi, no rales, no wheezing, and no accessory muscle usage. Abdominal: soft, nontender to palpation, no guarding, no appreciable organomegaly Ext: ROM intact. No gross muscle atrophy, no edema, no contractures Neuro: Speech clear, face symmetrical and CN II-XII grossly intact with no noted focal neuro deficits Psych: Alert and oriented to person, place, time, and situation. Appropriate and pleasant affect. Assessment and Plan of Care: Recurrent episodes of hypoglycemia DKA, resolved Poorly controlled diabetes mellitus Recurrent episodes of hypoglycemia Metabolic encephalopathy secondary to poorly controlled blood glucose levels and DKA. -DKA resolved -Multiple adjustments have been made to current insulin regimen as once initial stabilization of blood glucose levels was obtained, patient then began having recurrent episodes of hypoglycemia. -Hemoglobin A1c 10.3%. -NovoLog sliding scale -Continue with glycemic protocol and close monitoring of glucose levels -Urinalysis negative for infection. Pseudohyponatremia with sodium of 126 and corrected sodium of 134. -Resolved after stabilization of blood sugars. Sodium 138. Paroxysmal atrial fibrillation -Continue anticoagulation with Eliquis. Hypertension -Monitor vital signs and continue daily medication regimen with metoprolol. Blood pressures appear to be well controlled at this time. Hyperlipidemia -Continue daily medication regimen with atorvastatin. GERD -Continue Protonix 40 mg daily. CODE STATUS: Full code DVT prophylaxis: Eliquis Discussed with: Patient and RN Anticipated discharge date: Tomorrow Anticipated discharge place: Home A total of 35 minutes was spent on the care of this complex patient more than 50% of the time was spent in counseling and care coordination. I reviewed the documentation as provided by the MO above, who is the original author of this note. I agree with the documented assessment and plan, with the following changes: none Objective - Vital Signs Vital signs: Vital Signs Temp 98 F 08/17/22 08:20 Pulse 80 08/17/22 08:20 Resp 16 08/17/22 08:20 BP 132/76 08/17/22 08:20 Pulse Ox 94 L 08/17/22 08:20 FiO2 Intake & Output 08/16/22 08/17/22 08/17/22 18:59 06:59 18:59 Intake Total 1060 118 Balance 1060 118 Weight 54.431 kg Intake: Intake, IV Titration 520 Amount Sodium Chloride 0.9% 1, 520 000 ml @ 130 mls/hr IV . Q7H42M [facility] Rx#:[id number] Oral 540 118 Other: Voiding Method Toilet Toilet Toilet # Voids 1 - Labs CBC & Chem 7: 08/20/22 06:03 08/20/22 06:03 Labs: Abnormal Lab Results - Last 24 Hours (Table) 08/16/22 08/16/22 08/16/22 Range/Units 11:42 16:16 16:33 POC Glucose (mg/dL) 248 H 46 L 61 L (70-110) mg/dL 08/16/22 08/16/22 08/16/22 Range/Units 19:49 20:25 23:56 POC Glucose (mg/dL) 379 H 416 H 62 L (70-110) mg/dL 08/17/22 08/17/22 08/17/22 Range/Units 03:22 03:41 06:11 POC Glucose (mg/dL) 64 L 65 L 241 H (70-110) mg/dL
[2022-08-17 16:54] LABS: Glucose,Whole Blood 246 mg/dL (70-110)
[2022-08-17 19:13] LABS: Glucose,Whole Blood 325 mg/dL (70-110)
[2022-08-17] MEDS: ATORVASTATIN 20 MG TAB PO SCH (20:17)
[2022-08-18 01:59] LABS: Glucose,Whole Blood 158 mg/dL (70-110)
[2022-08-18 05:54] LABS: Glucose,Whole Blood 381 mg/dL (70-110)
[2022-08-18] MEDS: INSULIN ASPART (NovoLOG) 100 UNIT/ML VIAL SQ SCH ×4 (06:41→20:41)
[2022-08-18] MEDS: PANTOPRAZOLE 40 MG TABLET PO SCH (06:41)
[2022-08-18 07:41] LABS: HCT 38.5 % (34.0-46.0); HGB 12.3 gm/dL (11.4-16.0); MCH 30.3 pg (25.0-35.0); MCHC 31.9 g/dL (31.0-37.0); MCV 94.8 fL (80.0-100.0); Mean Platelet Volume 8.4; Platelet Count 192 k/uL (150-450); RBC 4.06 m/uL (3.80-5.40); RDW 12.6 % (11.5-15.5); WBC 2.8 k/uL (3.8-10.6)
[2022-08-18 07:51] LABS: Albumin 3.8 g/dL (3.5-5.0); Calcium 9.2 mg/dL (8.4-10.2); Potassium 4.5 mmol/L (3.5-5.1); Total Bilirubin 0.5 mg/dL (0.2-1.3); Total Protein 6.5 g/dL (6.3-8.2)
[2022-08-18] MEDS: CITALOPRAM HYDROBROMIDE 10 MG TAB PO SCH (08:51)
[2022-08-18] MEDS: ASPIRIN 81 MG PO SCH (08:51)
[2022-08-18] MEDS: MAGNESIUM OXIDE 400 MG TAB PO SCH (08:51)
[2022-08-18] MEDS: MULTIVITAMINS, THERA 1 EACH TAB PO SCH (08:51)
[2022-08-18] MEDS: CALCIUM CARB-VIT D 500 MG-5 MCG TAB PO SCH ×2 (08:51→19:58)
[2022-08-18] MEDS: METOPROLOL TARTRATE 12.5 MG TAB PO SCH ×2 (08:51→19:57)
[2022-08-18] MEDS: APIXABAN 5 MG TAB PO SCH ×2 (08:52→19:57)
[2022-08-18 11:39] LABS: Glucose,Whole Blood 295 mg/dL (70-110)
--- NOTE | 2022-08-18 14:06 | P.PN ---
Subjective Progress Note Date: 08/18/22 No new complaints. Patient feels better today. Sugars are still pretty labile. Gen: awake, alert HEENT: normocephalic, atraumatic, good hearing acuity, moist mucous membranes Resp: good air exchange, breathing comfortably with no accessory muscle use CVS: good distal perfusion x 4, GI: soft, NTTP, ND : no SPT, no CVAT, herrera catheter not present MSK: no pitting edema, no clubbing Neuro: non-focal, moving all extremities Psych: cooperative, euthymic mood Assessment/plan: Recurrent episodes of hypoglycemia DKA, resolved Poorly controlled diabetes mellitus Metabolic encephalopathy secondary to poorly controlled blood glucose levels and DKA. -DKA resolved -Multiple adjustments have been made to current insulin regimen as once initial stabilization of blood glucose levels was obtained, patient then began having recurrent episodes of hypoglycemia. -Hemoglobin A1c 10.3%. -NovoLog sliding scale -Continue with glycemic protocol and close monitoring of glucose levels -Urinalysis negative for infection. Pseudohyponatremia with sodium of 126 and corrected sodium of 134. -Resolved after stabilization of blood sugars. Sodium 138. Paroxysmal atrial fibrillation -Continue anticoagulation with Eliquis. Hypertension -Monitor vital signs and continue daily medication regimen with metoprolol. Blood pressures appear to be well controlled at this time. Hyperlipidemia -Continue daily medication regimen with atorvastatin. GERD -Continue Protonix 40 mg daily. CODE STATUS: Full code DVT prophylaxis: Eliquis Anticipated discharge date: Tomorrow Anticipated discharge place: Home Objective - Vital Signs Vital signs: Vital Signs Temp 97.7 F 08/18/22 11:30 Pulse 94 08/18/22 11:30 Resp 20 08/18/22 11:30 BP 103/65 08/18/22 11:30 Pulse Ox 98 08/18/22 11:30 FiO2 Intake & Output 08/17/22 08/18/22 08/18/22 18:59 06:59 18:59 Intake Total 476 Balance 476 Intake: Oral 476 Other: Voiding Method Toilet Toilet Toilet # Voids 2 1 1 - Labs CBC & Chem 7: 08/18/22 07:08 08/18/22 07:08 Labs: Abnormal Lab Results - Last 24 Hours (Table) 08/17/22 08/17/22 08/18/22 Range/Units 16:50 19:12 01:58 WBC (3.8-10.6) k/uL Sodium (137-145) mmol/L Chloride (98-107) mmol/L BUN (7-17) mg/dL Glucose (74-99) mg/dL POC Glucose (mg/dL) 246 H 325 H 158 H (70-110) mg/dL 08/18/22 08/18/22 08/18/22 Range/Units 05:53 07:08 07:08 WBC 2.8 L (3.8-10.6) k/uL Sodium 133 L (137-145) mmol/L Chloride 95 L (98-107) mmol/L BUN 19 H (7-17) mg/dL Glucose 403 H (74-99) mg/dL POC Glucose (mg/dL) 381 H (70-110) mg/dL 08/18/22 Range/Units 11:37 WBC (3.8-10.6) k/uL Sodium (137-145) mmol/L Chloride (98-107) mmol/L BUN (7-17) mg/dL Glucose (74-99) mg/dL POC Glucose (mg/dL) 295 H (70-110) mg/dL
[2022-08-18 16:48] LABS: Glucose,Whole Blood 258 mg/dL (70-110)
[2022-08-18] MEDS: ATORVASTATIN 20 MG TAB PO SCH (19:57)
[2022-08-18 20:36] LABS: Glucose,Whole Blood 191 mg/dL (70-110)
[2022-08-19 01:19] LABS: Glucose,Whole Blood 104 mg/dL (70-110)
[2022-08-19 07:15] LABS: Glucose,Whole Blood 401 mg/dL (70-110)
[2022-08-19] MEDS: INSULIN ASPART (NovoLOG) 100 UNIT/ML VIAL SQ SCH ×3 (07:24→17:13)
[2022-08-19] MEDS: PANTOPRAZOLE 40 MG TABLET PO SCH (07:24)
[2022-08-19] MEDS: CALCIUM CARB-VIT D 500 MG-5 MCG TAB PO SCH ×2 (08:51→20:49)
[2022-08-19] MEDS: MAGNESIUM OXIDE 400 MG TAB PO SCH (08:51)
[2022-08-19] MEDS: METOPROLOL TARTRATE 12.5 MG TAB PO SCH ×2 (08:51→20:49)
[2022-08-19] MEDS: CITALOPRAM HYDROBROMIDE 10 MG TAB PO SCH (08:51)
[2022-08-19] MEDS: MULTIVITAMINS, THERA 1 EACH TAB PO SCH (08:51)
[2022-08-19] MEDS: ASPIRIN 81 MG PO SCH (08:51)
[2022-08-19] MEDS: APIXABAN 5 MG TAB PO SCH ×2 (08:58→20:49)
[2022-08-19 12:05] LABS: Glucose,Whole Blood 66 mg/dL (70-110)
--- NOTE | 2022-08-19 12:56 | P.PN ---
Subjective Progress Note Date: 08/19/22 Sugars still very labile, pt had another episode of hypoglycemia to 60s. Pt needs further workup with TSH, cortisol level, proinsulin, c-peptide. Spoke with daughter about this over the phone - [facility] patient needs endocrine consultation as well as continuous BG monitoring device. Gen: awake, alert HEENT: normocephalic, atraumatic, good hearing acuity, moist mucous membranes Resp: good air exchange, breathing comfortably with no accessory muscle use CVS: good distal perfusion x 4, GI: soft, NTTP, ND : no SPT, no CVAT, herrera catheter not present MSK: no pitting edema, no clubbing Neuro: non-focal, moving all extremities Psych: cooperative, euthymic mood Assessment/plan: Recurrent episodes of hypoglycemia DKA, resolved Poorly controlled diabetes mellitus Metabolic encephalopathy secondary to poorly controlled blood glucose levels and DKA. -DKA resolved -Multiple adjustments have been made to current insulin regimen as once initial stabilization of blood glucose levels was obtained, patient then began having recurrent episodes of hypoglycemia. -Hemoglobin A1c 10.3%. -NovoLog sliding scale -Continue with glycemic protocol and close monitoring of glucose levels -Urinalysis negative for infection. Pseudohyponatremia with sodium of 126 and corrected sodium of 134. -Resolved after stabilization of blood sugars. Sodium 138. Paroxysmal atrial fibrillation -Continue anticoagulation with Eliquis. Hypertension -Monitor vital signs and continue daily medication regimen with metoprolol. Blood pressures appear to be well controlled at this time. Hyperlipidemia -Continue daily medication regimen with atorvastatin. GERD -Continue Protonix 40 mg daily. CODE STATUS: Full code DVT prophylaxis: Eliquis Anticipated discharge date: Tomorrow Anticipated discharge place: Home Objective - Vital Signs Vital signs: Vital Signs Temp 98.0 F 08/19/22 08:00 Pulse 76 08/19/22 08:00 Resp 18 08/19/22 08:00 BP 119/78 08/19/22 08:00 Pulse Ox 98 08/19/22 08:00 FiO2 Intake & Output 08/18/22 08/19/22 08/19/22 18:59 06:59 18:59 Intake Total 480 Balance 480 Intake: Oral 480 Other: Voiding Method Toilet # Voids 1 2 - Labs CBC & Chem 7: 08/18/22 07:08 08/18/22 07:08 Labs: Abnormal Lab Results - Last 24 Hours (Table) 08/18/22 08/18/22 08/19/22 Range/Units 16:47 20:34 07:13 POC Glucose (mg/dL) 258 H 191 H 401 H (70-110) mg/dL 08/19/22 Range/Units 12:03 POC Glucose (mg/dL) 66 L (70-110) mg/dL
[2022-08-19 16:39] LABS: Glucose,Whole Blood 468 mg/dL (70-110)
[2022-08-19 20:46] LABS: Glucose,Whole Blood 326 mg/dL (70-110)
[2022-08-19] MEDS: ATORVASTATIN 20 MG TAB PO SCH (20:49)
[2022-08-20 03:10] VITALS: RESP 16
[2022-08-20 03:15] LABS: Glucose,Whole Blood 471 mg/dL (70-110)
[2022-08-20 06:53] LABS: Glucose,Whole Blood 484 mg/dL (70-110)
[2022-08-20] MEDS: INSULIN ASPART (NovoLOG) 100 UNIT/ML VIAL SQ SCH ×3 (07:55→17:05)
[2022-08-20] MEDS: ASPIRIN 81 MG PO SCH (07:56)
[2022-08-20] MEDS: METOPROLOL TARTRATE 12.5 MG TAB PO SCH (07:56)
[2022-08-20] MEDS: CITALOPRAM HYDROBROMIDE 10 MG TAB PO SCH (07:56)
[2022-08-20] MEDS: CALCIUM CARB-VIT D 500 MG-5 MCG TAB PO SCH (07:56)
[2022-08-20] MEDS: MULTIVITAMINS, THERA 1 EACH TAB PO SCH (07:57)
[2022-08-20] MEDS: PANTOPRAZOLE 40 MG TABLET PO SCH (07:57)
[2022-08-20] MEDS: MAGNESIUM OXIDE 400 MG TAB PO SCH (07:57)
[2022-08-20] MEDS: APIXABAN 5 MG TAB PO SCH (07:57)
[2022-08-20 10:04] LABS: Basophils # (A) 0.01 X 10*3/uL (0.00-0.10); Basophils % (A) 0.3 %; Eosinophils # (A) 0.09 X 10*3/uL (0.04-0.35); Eosinophils % (A) 2.7 %; HCT 35.1 % (37.2-46.3); HGB 11.8 g/dL (12.0-15.0); Immature Grans, Automated 0.3 %; Lymphocytes # (A) 1.15 X 10*3/uL (0.90-5.00); Lymphocytes % (A) 34.3 %; MCH 30.4 pg (27.0-32.0); MCHC 33.6 g/dL (32.0-37.0); MCV 90.5 fL (80.0-97.0); Mean Platelet Volume 10.4 fL (9.5-12.2); Monocytes # (A) 0.35 X 10*3/uL (0.20-1.00); Monocytes % (A) 10.4 %; NRBC Per 100 WBC 0 /100 WBCS (0.0-0.0); Neutrophils # (A) 1.74 X 10*3/uL (1.80-7.70); Platelet Count 221 X 10*3/uL (140-440); RBC 3.88 X 10*6/uL (4.10-5.20); RDW 12.4 % (11.5-14.5); WBC 3.35 X 10*3/uL (4.50-10.00)
[2022-08-20 10:43] LABS: Magnesium 1.9 mg/dL (1.5-2.4)
[2022-08-20 11:02] LABS: African American GFR (CKD) 53.4 (60.0-200.0); BUN/Creat Ratio 21.92 Ratio (12.00-20.00); Blood Urea Nitrogen 26.3 mg/dL (9.0-27.0); Calcium 9.4 mg/dL (8.7-10.3); Carbon Dioxide 23.2 mmol/L (20.0-27.5); Chloride 89 mmol/L (96-109); Glucose 521 mg/dL (70-110); Non-African American GFR(CKD) 46.1 (60.0-200.0); Potassium 4.9 mmol/L (3.5-5.5); Sodium 129 mmol/L (135-145)
[2022-08-20] MEDS ORDERED: SODIUM CHLORIDE 0.9% 1,000 ML IV ONE (11:32)
[2022-08-20 11:58] LABS: Glucose,Whole Blood 516 mg/dL (70-110)
[2022-08-20 11:58] LABS: Glucose,Whole Blood 523 mg/dL (70-110)
[2022-08-20 13:29] LABS: Glucose,Whole Blood 385 mg/dL (70-110)
--- NOTE | 2022-08-20 14:06 | P.DS ---
Providers Date of admission: 08/13/22 08:53 Expected date of discharge: 08/20/22 Attending physician: Geovanna Villela DO Primary care physician: 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 Pseudohyponatremia with sodium of 126 and corrected sodium of 134. Paroxysmal atrial fibrillation Hypertension Hyperlipidemia GERD Patient is a very pleasant 67-year-old female with a past medical history of type 1 diabetes mellitus, atrial fibrillation on anticoagulation with Eliquis, hypertension, hyperlipidemia, GERD, seizure disorder, and previous CVA/TIA. Patient presented to the emergency department overnight with a chief complaint of altered mental status. She underwent full evaluation. Labs completed and were concerning for diabetic ketoacidosis with hyperglycemia with glucose of 589, Pseudohyponatremia with sodium of 126 and corrected sodium of 134, hypochloremia with chloride of 91, carbon dioxide 13, and anion gap of 22. Qualitative acetone positive. CBC and CMP otherwise showing no significant abnormalities. Urine drug screen was negative. CT head revealing old lacunar infarct of left thalamus no significant changes. EKG sinus tachycardia at 101 bpm. Troponin negative at less than 0.012. Chest x-ray was negative for acute cardiopulmonary process. Vital signs unremarkable. Patient was given a 2 L bolus of 0.9% normal saline along with 8 units of insulin which resulted in significant improvement of blood glucose levels down to 223. Patient admitted under our services for DKA at this time. Pts DKA resolved with adjustments to insulin, metabolic management, and IVF, but hospital course complicated by recurrent episodes of hypoglycemia despite subtle adjustments to insulin. Pts Brittle DM was discussed at length with patient and daughter and glucose target range was liberalized to be from 100-500. Her insulin was adjusted accordingly to eliminate low blood sugars. Patients daughter and patient were extensively counseled on importance of hydration during periods of hyperglycemia, alarm symptoms of hyper and hypoglycemia and when to return to hospital, and importance of follow up with spine specialist, nurses educator, and the need to obtain a continuous blood glucose monitoring device to get her sugars under tighter control. However, in the interrim, dangers of low blood sugar more so than high blood sugar were emphasized. I will note that this patient has a high risk of readmission for both hypo and hyperglycemia given the challenges of controlling BS while in house. She will require strict compliance to our d/c instructions and follow up plans to provide her best chance to avoid readmission - this was explained to patient and daughter as well. Below are copy/pasted d/c instructions given to patient and daughter at time of discharge. I spent 58 minutes coordinating this complex discharge including evaluating the patient and counseling patient and daughter, as well as completing discharge summary, medication reconciliation, and follow up plan. Activity: As tolerated. Take breaks as needed. Diet: Heart healthy and carb consistent diet. Must eat 3 regimented, carbohydrate consistent meals per day. Limit/Eliminate snacking between meals, EXCEPT in cases of low blood sugar. In order to stay hydrated during times of high blood sugar, it is often necessary to drink up to 3.5-4L of water per day. 4L of water is approximately equal to 1 gallon, which is the size of the large milk cartons commonly found in grocery stores. Special Instructions: Take all of your medications as directed and remember to keep all of your doctor's appointments and follow-up as needed. As discussed with both you and your daughter, it is very important to monitor your blood glucose levels 4 times daily with each meal and at night. It is high ly recommended that you follow up outpatient with a cosmetology educator at [facility], as they have outpatient diabetes education classes at that facility. We are also sending you home with homecare, therefore you will have someone who can follow up with you and further educate you on properly managing your blood glucose levels at home. I recommend that after discharge that you monitor your blood glucose levels as discussed and document these findings in a daily log/journal and bring these results with you to your PCP and endocrinologists office as we discussed. In regards to reports of increasing episodes of memory loss over the past year and request for dementia evaluation, this could be related to multiple issues such as previous stroke, uncontrolled diabetes, and many many more. Evaluation and appropriate diagnoses for your reports of progressively worsening episodes of memory loss over the past year is something that will need to be completed on an outpatient basis through the primary care doctor or neurologist. CT brain was completed during this hospitalization that did show signs of her old stroke but was negative for any acute process. When to return to the hospital, check in with urgent care, or check in with Primary Care Physician: - Single sugar check of < 70 that does not correct with sugary snack. - Sugar is > 500 for more than 24 hours or for four (4) consecutive sugar checks - Sugar is > than the monitor is able to read for more than two (2) consecutive checks - Single episode of the following symptoms that does not resolve within 1-2 hours of insulin administration for high sugar: fainting, dizziness, palpations, lethargy, or confusion. - Single episode of the following symptoms that does not resolve within 1-2 hours after snack consumption for low sugar: fainting, dizziness, palpations, lethargy, or confusion. - Persistent symptoms of nausea, vomiting, abdominal pain or any other symptoms of concern Dosing of medications: Before Breakfast - 6 units of novolog (hold for sugar < 100) Before Lunch - 6 units of novolog (hold for sugar < 100) Before Dinner - 6 units of novolog (hold for sugar < 100) Before Bedtime - 9 units of lantus (take at approximately same time every day, i.e between 8-9:30) Physical exam: Gen: awake, alert HEENT: normocephalic, atraumatic, good hearing acuity, moist mucous membranes Resp: good air exchange, breathing comfortably with no accessory muscle use CVS: good distal perfusion x 4, GI: soft, NTTP, ND : no SPT, no CVAT, herrera catheter not present MSK: no pitting edema, no clubbing Neuro: non-focal, moving all extremities Psych: cooperative, euthymic mood Patient Condition at Discharge: Good Plan - Discharge Summary New Discharge Prescriptions: New Magnesium Oxide [Mag-Ox] 400 mg PO DAILY 30 Days #30 tab INSULIN ASPART (NovoLOG) [NovoLOG (formulary)] 6 unit SQ AC-TID #540 each Continue Apixaban [Eliquis] 5 mg PO BID #60 tab Aspirin 81 mg PO DAILY 30 Days #30 tab Metoprolol Tartrate [Lopressor] 12.5 mg PO BID Citalopram Hydrobromide [CeleXA] 10 mg PO DAILY Multivit-Min/Iron/Folic/Lutein [Centrum Silver Women Tablet] 2 tab PO DAILY Atorvastatin [Lipitor] 20 mg PO HS Calcium Carbonate/Vitamin D3 [Calcium 500 mg-Vit D3 5 mcg (200 Unit)] 1 tab PO BID Insulin Glargine [Lantus Vial] 9 unit SQ HS #10 ml Alendronate Sodium [Fosamax] 70 mg PO Q7D Pantoprazole [Protonix] 40 mg PO DAILY #30 tab Discontinued INSULIN ASPART (NovoLOG) [NovoLOG (formulary)] 10 unit SQ AC-TID Discharge Medication List Apixaban [Eliquis] 5 mg PO BID #60 tab 05/19/21 [Rx] Aspirin 81 mg PO DAILY 30 Days #30 tab 10/01/21 [Rx] Citalopram Hydrobromide [CeleXA] 10 mg PO DAILY 12/03/21 [History] Metoprolol Tartrate [Lopressor] 12.5 mg PO BID 12/03/21 [History] Multivit-Min/Iron/Folic/Lutein [Centrum Silver Women Tablet] 2 tab PO DAILY 02/23/22 [History] Atorvastatin [Lipitor] 20 mg PO HS 05/01/22 [History] Calcium Carbonate/Vitamin D3 [Calcium 500 mg-Vit D3 5 mcg (200 Unit)] 1 tab PO BID 05/01/22 [History] Insulin Glargine [Lantus Vial] 9 unit SQ HS #10 ml 05/05/22 [Rx] Alendronate Sodium [Fosamax] 70 mg PO Q7D 06/29/22 [History] Pantoprazole [Protonix] 40 mg PO DAILY #30 tab 07/01/22 [Rx] Magnesium Oxide [Mag-Ox] 400 mg PO DAILY 30 Days #30 tab 08/16/22 [Rx] INSULIN ASPART (NovoLOG) [NovoLOG (formulary)] 6 unit SQ AC-TID #540 each 08/20/22 [Rx] Follow up Appointment(s)/Referral(s): Rosalina Colin MD [STAFF PHYSICIAN] - 10/07/22 11:15 am (Brittle Diabetic - consideration of Continuous blood glucose monitoring) [facility] [Primary Care Provider] - 1-2 days (Office to call with appointment date and time.) Patient Instructions/Handouts: Diabetic Ketoacidosis (DC), Hypoglycemia in a Person with Diabetes (DC), Basic Carbohydrate Counting (DC), Meal Planning with the Plate Method (DC), Diabetic Hyperglycemia (DC), Diabetes and Exercise (DC) Activity/Diet/Wound Care/Special Instructions: Activity: As tolerated. Take breaks as needed. Diet: Heart healthy and carb consistent diet. Must eat 3 regimented, carbohydrate consistent meals per day. Limit/Eliminate snacking between meals, EXCEPT in cases of low blood sugar. In order to stay hydrated during times of high blood sugar, it is often necessary to drink up to 3.5-4L of water per day. 4L of water is approximately equal to 1 gallon, which is the size of the large milk cartons commonly found in grocery stores. Special Instructions: Take all of your medications as directed and remember to keep all of your doctor's appointments and follow-up as needed. As discussed with both you and your daughter, it is very important to monitor your blood glucose levels 4 times daily with each meal and at night. It is highly recommended that you follow up outpatient with a cosmetology educator at [facility], as they have outpatient diabetes education classes at that facility. We are also sending you home with homecare, therefore you will have someone who can follow up with you and further educate you on properly managing your blood glucose levels at home. I recommend that after discharge that you monitor your blood glucose levels as discussed and document these findings in a daily log/journal and bring these results with you to your PCP and endocrinologists office as we discussed. In regards to reports of increasing episodes of memory loss over the past year and request for dementia evaluation, this could be related to multiple issues such as previous stroke, uncontrolled diabetes, and many many more. Evaluation and appropriate diagnoses for your reports of progressively worsening episodes of memory loss over the past year is something that will need to be completed on an outpatient basis through the primary care doctor or neurologist. CT brain was completed during this hospitalization that did show signs of her old stroke but was negative for any acute process. When to return to the hospital, check in with urgent care, or check in with Primary Care Physician: - Single sugar check of < 70 that does not correct with sugary snack. - Sugar is > 500 for more than 24 hours or for four (4) consecutive sugar checks - Sugar is > than the monitor is able to read for more than two (2) consecutive checks - Single episode of the following symptoms that does not resolve within 1-2 hours of insulin administration for high sugar: fainting, dizziness, palpations, lethargy, or confusion. - Single episode of the following symptoms that does not resolve within 1-2 hours of insulin administration for low sugar: fainting, dizziness, palpations, lethargy, or confusion. - Persistent symptoms of nausea, vomiting, abdominal pain or any other symptoms of concern Dosing of medications: Before Breakfast - 6 units of novolog (hold for sugar < 100) Before Lunch - 6 units of novolog (hold for sugar < 100) Before Dinner - 6 units of novolog (hold for sugar < 100) Before Bedtime - 9 units of lantus Thank you for allowing us to participate in your care, it was truly a pleasure having you for our patient! Discharge Disposition: HOME WITH HOME HEALTH SERVICES
[2022-08-20 16:49] LABS: Glucose,Whole Blood 447 mg/dL (70-110)
[2022-08-20 17:08] VITALS: BP 94/56; PULSE 84; TEMP 98.3
[2022-08-21 18:58] LABS: C-Peptide 0.27 ng/mL (0.81-3.85)
== END 2022-08-20 17:48 | disposition home or self-care (01) | DRG 637 ==
LOC: EC 20:20 → 3SCARD 08-13 08:53 → 4SSUR 08-18 14:41
PROVIDERS: ADMIT Internal Medicine; ATTEND Internal Medicine
DX: E10.10 Type 1 diabetes mellitus with ketoacidosis without coma (principal); G93.41 Metabolic encephalopathy; E10.649 Type 1 diabetes mellitus with hypoglycemia without coma; E87.8 Other disorders of electrolyte and fluid balance, not elsewhere classified; I48.0 Paroxysmal atrial fibrillation; Z79.4 Long term (current) use of insulin; E06.3 Autoimmune thyroiditis; E78.5 Hyperlipidemia, unspecified; I10 Essential (primary) hypertension; K21.9 Gastro-esophageal reflux disease without esophagitis; F32.A Depression, unspecified; G47.30 Sleep apnea, unspecified; M19.90 Unspecified osteoarthritis, unspecified site; Z79.83 Long term (current) use of bisphosphonates; Z79.01 Long term (current) use of anticoagulants; Z79.82 Long term (current) use of aspirin; Z79.899 Other long term (current) drug therapy; Z86.73 Personal history of transient ischemic attack (TIA), and cerebral infarction without residual deficits; Z86.69 Personal history of other diseases of the nervous system and sense organs; Z71.3 Dietary counseling and surveillance; Z88.0 Allergy status to penicillin
CPT/HCPCS: 36415; 70450; 71046; 80048; 80053; 80306; 81003; 82009; 82533; 83036; 83735; 84206; 84443; 84484; 84681; 85025; 85027; 85610; 85730; 93005; 96360; 96361; 99285

== ENCOUNTER → 2022-08-26 | Outpatient (CLI) | payer OTHER ==
--- NOTE | 2022-08-26 14:58 | MR ---
EXAMINATION TYPE: MR abdomen wo/w con DATE OF EXAM: 08/26/2022 COMPARISON: CT abdomen and pelvis June 29, [address] 2017 HISTORY: CYST ON PANCREAS CONTRAST: Standard multiplanar, multisequence MRI departmental protocol images were obtained without contrast a nd with 7.5ml mL intravenous Gadavist gadolinium contrast. Imaging performed of the abdomen focusing on the pancreas. FINDINGS: Pancreas: Pancreas is overall normal in size. Corresponding to recent CT there is a thin-walled cyst in the uncinate process without enhancement measuring approximately 1.3 x 0.8 cm image 33 series 801 seen best postcontrast image 317 series 1001. A few adjacent tiny thin-walled cysts are present coron al image 14. Findings appear new or definitely at least more prominent from [address] Main pancreatic duct grossly appears within normal limits to the right of this with accessory duct approa amparo this lesion on coronal images. Other: Lung bases remain clear. Gallbladder not seen consistent with history of cholecystectomy. No b iliary dilatation. The liver and spleen remain within normal limits. Slight nodular thickening to lef t adrenal gland shows diffuse signal dropout consistent with small benign lipid rich adenoma. Redemon stration of 2.2 cm benign-appearing thin-walled cyst left kidney coronal image 25. No hydronephrosis seen bilaterally. No suspicious small or large bowel dilatation. Visualized portion of the urinary bl adder is unremarkable. Visualized osseous structures are intact. IMPRESSION: Confirmation of new 1.3 x 0.8 cm thin-walled cyst or cystic lesion at level of the uncina te process of the pancreas in close proximity to the accessory duct. Differential includes IPMN. Advi se imaging MRI/MRCP in one to 2 years time to reassess based on size of lesion and patient age.
== END | disposition home or self-care (01) ==
LOC: RADMRIMAIN 12:43
PROVIDERS: ATTEND Nurse Practitioner Acute Care
DX: K86.2 Cyst of pancreas (principal)
CPT/HCPCS: 74183; A9585

== ENCOUNTER → 2022-08-27 | Outpatient (CLI) | payer OTHER ==
--- NOTE | 2022-08-28 04:46 | MR ---
EXAMINATION TYPE: MR pelvis wo con DATE OF EXAM: 08/27/2022 COMPARISON: None HISTORY: Cyst of pancreas, patient states she keeps passing out. Multiplanar multiecho imaging of the pelvis performed with no contrast. Bladder distends smoothly. No free fluid in the pelvis. Uterus is anteverted. No evidence of uterine mass. No evidence of pelvic lymphadenopathy. No inguinal hernia. The bony pelvis is intact. The proximal femurs and hip joints appear normal. No evidence of a pelvic mass. No evidence of bowel obstruction. Intestinal pattern appears normal. Th e sacrum is intact. IMPRESSION: Negative MR scan of the pelvis.
== END | disposition home or self-care (01) ==
LOC: RADMRIMAIN 14:05
PROVIDERS: ATTEND Nurse Practitioner Acute Care
DX: K86.2 Cyst of pancreas (principal)
CPT/HCPCS: 72195

== ENCOUNTER 2022-11-23 15:18 | Emergency (ER) | payer MEDICARE, OTHER ==
[2022-11-23 15:33] VITALS: RESP 18; TEMP 97.9
--- NOTE | 2022-11-23 15:50 | ED ---
Recheck HPI - General Source: patient, RN notes reviewed Mode of arrival: ambulatory Limitations: no limitations <Sebastien Cortes - Last Filed: 11/23/22 15:49> - History of Present Illness MD Complaint: other (hyperglycemia) -: days(s) (1) <Edilberto Tan - Last Filed: 11/23/22 22:33> - General Chief Complaint: Recheck/Abnormal Lab/Rx Stated Complaint: diabetic issue Time Seen by Provider: 11/23/22 15:49 - History of Present Illness Initial Comments: 67-year-old female presents emergency Department chief complaint of hyperglyc emia. Patient states her blood sugar is elevated and was reading high earlier. She has given herself some insulin. Patient denies any fevers, chills patient believes she may have urinary tract infection. Denies any nausea vomiting diarrhea constipation denies any chest pain. Patient states she had no problems yesterday. (Sebastien Cortes) 67-year-old female presents alert and oriented with daughter with complaints of elevated blood glucose today for the past 6 hours. States she also did an at home urine test concerned for urinary tract infection after being in a dirty bathtub and it tested positive. Denies any nausea vomiting diarrhea. No fevers. No chest pain or difficulty breathing. No abdominal pain. (Edilberto Tan) - Related Data Home Medications Medication Instructions Recorded Confirmed Citalopram Hydrobromide [CeleXA] 10 mg PO DAILY 12/03/21 08/13/22 Metoprolol Tartrate [Lopressor] 12.5 mg PO BID 12/03/21 08/13/22 Multivit-Min/Iron/Folic/Lutein 2 tab PO DAILY 02/23/22 08/13/22 [Centrum Silver Women Tablet] Atorvastatin [Lipitor] 20 mg PO HS 05/01/22 08/13/22 Calcium Carbonate/Vitamin D3 1 tab PO BID 05/01/22 08/13/22 [Calcium 500 mg-Vit D3 5 mcg (200 Unit)] Alendronate Sodium [Fosamax] 70 mg PO Q7D 06/29/22 08/13/22 Previous Rx's Medication Instructions Recorded Apixaban [Eliquis] 5 mg PO BID #60 tab 05/19/21 Aspirin 81 mg PO DAILY 30 Days #30 tab 11/11/21 Insulin Glargine [Lantus Vial] 9 unit SQ HS #10 ml 05/05/22 Pantoprazole [Protonix] 40 mg PO DAILY #30 tab 07/01/22 Magnesium Oxide [Mag-Ox] 400 mg PO DAILY 30 Days #30 tab 08/16/22 INSULIN ASPART (NovoLOG) [NovoLOG 6 unit SQ AC-TID #540 each 08/20/22 (formulary)] Allergies Allergy/AdvReac Type Severity Reaction Status Date / Time Penicillins Allergy Family Verified 11/23/22 15:32 History Review of Systems ROS Other: All systems not noted in ROS Statement are negative. <Sebastien Cortes - Last Filed: 11/23/22 15:49> ROS Other: All systems not noted in ROS Statement are negative. <Edilberto Tan - Last Filed: 11/23/22 22:33> ROS Statement: Those systems with pertinent positive or pertinent negative responses have been documented in the HPI. 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 Needs to use a child's one. mother has diff c oming out Past Psychological History: Depression Smoking Status: Never smoker Past Alcohol Use History: None Reported Past Drug Use History: None Reported - Past Family History Mother Family Medical History: Thyroid Disorder Additional Family Medical History / Comment(s): thyroid removed Father Family Medical History: Myocardial Infarction ([place]) <Sebastien Cortes - Last Filed: 11/23/22 15:49> General Exam Limitations: no limitations <Sebastien Cortes - Last Filed: 11/23/22 15:49> General appearance: alert, in no apparent distress Head exam: Present: atraumatic Eye exam: Present: normal appearance. Absent: scleral icterus, conjunctival injection, periorbital swelling ENT exam: Present: mucous membranes moist Neck exam: Absent: tenderness, meningismus Respiratory exam: Present: normal lung sounds bilaterally. Absent: respiratory distress, accessory muscle use Cardiovascular Exam: Present: regular rate GI/Abdominal exam: Present: soft Extremities exam: Present: normal capillary refill. Absent: pedal edema Neurological exam: Present: alert, oriented X3 Psychiatric exam: Present: normal affect, normal mood Skin exam: Present: warm, dry, normal color. Absent: cyanosis, diaphoretic <Edilberto Tan - Last Filed: 11/23/22 22:33> Course Vital Signs 11/23/22 11/23/22 15:29 18:33 Temperature 97.9 F Pulse Rate 69 67 Respiratory 18 18 Rate Blood Pressure 110/73 122/67 O2 Sat by Pulse 97 97 Oximetry Medical Decision Making - Lab Data Result diagrams: 11/23/22 16:25 11/23/22 16:25 <Edilberto Tan - Last Filed: 11/23/22 22:33> - Medical Decision Making Patient presents with concerns for urinary tract infection. Urinalysis is negative. Also concerned that her blood glucose levels have been elevated today for past 6 hours. Blood glucose 328. Labs show no evidence of DKAPatient uses daily insulin novalog 6units TID and due for 1800 dose. Also takes 12 units long-acting at night. Denies any nausea vomiting diarrhea or fevers. Patient states that she has been having troubles regulating her blood glucose levels and has had multiple episodes of hypoglycemia in the past. Case discussed with Dr. Spring patient was given 6 units of NovoLog as she was due at 1800 today. Discharged home to follow up with her nuclear unit operator Dr Rosalina Colin tomorrow for continuation of care. Patient and daughter are agreeable to this plan of care. Was pt. sent in by a medical professional or institution? @ -No Did you speak to anyone other than the patient for history? @ -Daughter Did you review nursing and triage notes? @ -Yes I agree Were old charts reviewed? @ -Yes previous medication dosing and labs Differential Diagnosis? @ -Hyperglycemia, urinary tract infection, this is not an exhaustive list EKG interpreted by me (3pts min.)? @ -Not applicable X-rays interpreted by me (1pt min.)? @ -Not applicable CT interpreted by me (1pt min.)? @ -Not applicable U/S interpreted by me (1pt. min.)? @ -Not applicable What testing was considered but not performed? (CT, X-rays, U/S, labs)? Why? @None What meds were considered but not given? Why? @ -Antibiotics were considered however there is no evidence of infection Did you discuss the management of the patient with other professionals? @ -No Did you reconcile home meds? @ -No Was smoking cessation discussed for >3mins.? @ -No Was critical care preformed (if so, how long)? @ -No Were there social determinants of health that impacted care today? How? (Homelessness, low income, unemployed, alcoholism, drug addiction, transportation, low edu. Level, literacy, decrease access to med. care, longterm, rehab)? @ -No Was there de-escalation of care discussed even if they declined? (Discuss DNR or withdrawal of care, Hospice)? @ -No What co-morbidities impacted this encounter? (DM, HTN, Smoking, COPD, CAD, Cancer, CVA, Hep., AIDS, mental health diagnosis, sleep apnea, morbid obesity)? @ -Diabetes, CVA, seizure disorder, A. fib Was patient admitted / discharged? @ -Discharged Undiagnosed new problem with uncertain prognosis? @ -[none] Drug Therapy requiring intensive monitoring for toxicity (Heparin, Nitro, Insulin, Cardizem)? @ -No Were any procedures done? @ -No Diagnosis/symptom? @ -Hyperglycemia Acute, or Chronic, or Acute on Chronic? @ -Acute on chronic Uncomplicated (without systemic symptoms) or Complicated (systemic symptoms)? @ -Uncomplicated Side effects of treatment? @ -[none] Exacerbation, Progression, or Severe Exacerbation] @ -[no] Poses a threat to life or bodily function? @ -[no] (Edilberto Tan) - Lab Data Lab Results 11/23/22 11/23/22 11/23/22 Range/Units 16:25 16:25 16:25 WBC 3.3 L (3.8-10.6) k/uL RBC 4.25 (3.80-5.40) m/uL Hgb 13.2 (11.4-16.0) gm/dL Hct 39.0 (34.0-46.0) % MCV 91.7 (80.0-100.0) fL MCH 30.9 (25.0-35.0) pg MCHC 33.7 (31.0-37.0) g/dL RDW 11.9 (11.5-15.5) % Plt Count 232 (150-450) k/uL MPV 8.0 Neutrophils % 64 % Lymphocytes % 26 % Monocytes % 7 % Eosinophils % 2 % Basophils % 0 % Neutrophils # 2.1 (1.3-7.7) k/uL Lymphocytes # 0.8 L (1.0-4.8) k/uL Monocytes # 0.2 (0-1.0) k/uL Eosinophils # 0.1 (0-0.7) k/uL Basophils # 0.0 (0-0.2) k/uL VBG pH (7.31-7.41) VBG pCO2 (37-51) mmHg VBG HCO3 (24-28) mmol/L Sodium 136 L (137-145) mmol/L Potassium 4.6 (3.5-5.1) mmol/L Chloride 101 (98-107) mmol/L Carbon Dioxide 28 (22-30) mmol/L Anion Gap 7 mmol/L BUN 27 H (7-17) mg/dL Creatinine 0.81 (0.52-1.04) mg/dL Est GFR (CKD-EPI)AfAm 86 (>60 ml/min/1.73 sqM) Est GFR (CKD-EPI)NonAf 75 (>60 ml/min/1.73 sqM) Glucose 363 H (74-99) mg/dL POC Glucose (mg/dL) (70-110) mg/dL POC Glu Ham Passer ID Plasma Lactic Acid Apolinar 1.0 (0.7-2.0) mmol/L Calcium 9.5 (8.4-10.2) mg/dL Total Bilirubin 0.6 (0.2-1.3) mg/dL AST 31 (14-36) U/L ALT 22 (4-34) U/L Alkaline Phosphatase 28 L (38-126) U/L Total Protein 7.9 (6.3-8.2) g/dL Albumin 4.8 (3.5-5.0) g/dL Lipase 40 (23-300) U/L Urine Color Urine Appearance (Clear) Urine pH (5.0-8.0) Ur Specific [place] (1.001-1.035) Urine Protein (Negative) Urine Glucose (UA) (Negative) Urine Ketones (Negative) Urine Blood (Negative) Urine Nitrite (Negative) Urine Bilirubin (Negative) Urine Urobilinogen (<2.0) mg/dL Ur Leukocyte Esterase (Negative) Urine RBC (0-5) /hpf Urine WBC (0-5) /hpf Ur Squamous Epith Cells (0-4) /hpf Urine Mucus (None) /hpf 11/23/22 11/23/22 11/23/22 Range/Units 16:25 16:33 17:42 WBC (3.8-10.6) k/uL RBC (3.80-5.40) m/uL Hgb (11.4-16.0) gm/dL Hct (34.0-46.0) % MCV (80.0-100.0) fL MCH (25.0-35.0) pg MCHC (31.0-37.0) g/dL RDW (11.5-15.5) % Plt Count (150-450) k/uL MPV Neutrophils % % Lymphocytes % % Monocytes % % Eosinophils % % Basophils % % Neutrophils # (1.3-7.7) k/uL Lymphocytes # (1.0-4.8) k/uL Monocytes # (0-1.0) k/uL Eosinophils # (0-0.7) k/uL Basophils # (0-0.2) k/uL VBG pH 7.37 (7.31-7.41) VBG pCO2 45 (37-51) mmHg VBG HCO3 26 (24-28) mmol/L Sodium (137-145) mmol/L Potassium (3.5-5.1) mmol/L Chloride (98-107) mmol/L Carbon Dioxide (22-30) mmol/L Anion Gap mmol/L BUN (7-17) mg/dL Creatinine (0.52-1.04) mg/dL Est GFR (CKD-EPI)AfAm (>60 ml/min/1.73 sqM) Est GFR (CKD-EPI)NonAf (>60 ml/min/1.73 sqM) Glucose (74-99) mg/dL POC Glucose (mg/dL) 328 H (70-110) mg/dL POC Glu Ham Passer ID Anthony Narayan Plasma Lactic Acid Apolinar (0.7-2.0) mmol/L Calcium (8.4-10.2) mg/dL Total Bilirubin (0.2-1.3) mg/dL AST (14-36) U/L ALT (4-34) U/L Alkaline Phosphatase (38-126) U/L Total Protein (6.3-8.2) g/dL Albumin (3.5-5.0) g/dL Lipase (23-300) U/L Urine Color Light Yellow Urine Appearance Clear (Clear) Urine pH 5.0 (5.0-8.0) Ur Specific [place] 1.019 (1.001-1.035) Urine Protein Negative (Negative) Urine Glucose (UA) 4+ H (Negative) Urine Ketones Negative (Negative) Urine Blood Negative (Negative) Urine Nitrite Negative (Negative) Urine Bilirubin Negative (Negative) Urine Urobilinogen <2.0 (<2.0) mg/dL Ur Leukocyte Esterase Small H (Negative) Urine RBC 1 (0-5) /hpf Urine WBC 2 (0-5) /hpf Ur Squamous Epith Cells 2 (0-4) /hpf Urine Mucus Rare H (None) /hpf Disposition <Sebastien Cortes - Last Filed: 11/23/22 15:49> Is patient prescribed a controlled substance at d/c from ED?: No Time of Disposition: 18:16 <Edilberto Tan - Last Filed: 11/23/22 22:33> Clinical Impression: Hyperglycemia due to diabetes mellitus Disposition: HOME SELF-CARE Condition: Good Instructions (If sedation given, give patient instructions): Diabetic Hyperglycemia (ED) Additional Instructions: Call your nuclear unit operator tomorrow to make an appointment for follow-up this week. Continue your previously prescribed insulin regimen. To prevent hypoglycemia at night eat a small snack. Referrals: [facility],Clinic [Primary Care Provider] - 1-2 days
[2022-11-23 16:44] LABS: Basophils % (A) 0 %; Eosinophils # (A) 0.1 k/uL (0-0.7); Eosinophils % (A) 2 %; HGB 13.2 gm/dL (11.4-16.0); Lymphocytes # (A) 0.8 k/uL (1.0-4.8); Lymphocytes % (A) 26 %; MCH 30.9 pg (25.0-35.0); MCHC 33.7 g/dL (31.0-37.0); MCV 91.7 fL (80.0-100.0); Monocytes # (A) 0.2 k/uL (0-1.0); Monocytes % (A) 7 %; Neutrophils # (A) 2.1 k/uL (1.3-7.7); Neutrophils % (A) 64 %; Platelet Count 232 k/uL (150-450); RBC 4.25 m/uL (3.80-5.40); RDW 11.9 % (11.5-15.5); WBC 3.3 k/uL (3.8-10.6)
[2022-11-23 16:46] LABS: Appearance,Urine Clear (Clear); Bilirubin,Urine Negative (Negative); Blood,Urine Negative (Negative); Color,Urine Light Yellow; Glucose,Urine (UA) 4+ (Negative); Ketones,Urine Negative (Negative); Leukocyte Esterase,Urine Small (Negative); Mucus,Urine Rare /hpf; Nitrite,Urine Negative (Negative); Protein,Urine Negative (Negative); RBC,Urine 1 /hpf (0-5); Specific Gravity,Urine 1.019 (1.001-1.035); Squamous Epithelial Cell,Urine 2 /hpf (0-4); Urobilinogen,Urine <2.0 mg/dL (<2.0); WBC,Urine 2 /hpf (0-5)
[2022-11-23 16:51] LABS: VBG PH 7.37 (7.31-7.41)
[2022-11-23 17:07] LABS: Albumin 4.8 g/dL (3.5-5.0); Calcium 9.5 mg/dL (8.4-10.2); Potassium 4.6 mmol/L (3.5-5.1); Total Bilirubin 0.6 mg/dL (0.2-1.3); Total Protein 7.9 g/dL (6.3-8.2)
[2022-11-23 17:46] LABS: Glucose,Whole Blood 328 mg/dL (70-110)
[2022-11-23] MEDS ORDERED: INSULIN ASPART (NovoLOG) 100 UNIT/ML VIAL SQ ONE (18:14)
[2022-11-23 18:34] VITALS: BP 122/67; PULSE 67
== END 2022-11-23 18:34 | disposition home or self-care (01) ==
LOC: EC 15:18
DX: E11.65 Type 2 diabetes mellitus with hyperglycemia (principal); I48.91 Unspecified atrial fibrillation; E11.9 Type 2 diabetes mellitus without complications; K21.9 Gastro-esophageal reflux disease without esophagitis; G40.909 Epilepsy, unspecified, not intractable, without status epilepticus; E07.9 Disorder of thyroid, unspecified; F32.A Depression, unspecified; Z88.0 Allergy status to penicillin; Z79.899 Other long term (current) drug therapy
CPT/HCPCS: 36415; 80053; 81001; 82803; 83605; 83690; 85025; 99285